=== PATIENT | male | born 1950 | race African-American/Black ===

== ENCOUNTER 2017-07-07 15:00 | Inpatient (IN) | payer OTHER ==
--- NOTE | 2017-07-07 15:48 | PDOC ---
Attending Attestation - HPI HPI: 07/07/17 17:59 Pt is a 66 yo M with a PMHx of CHF and DM who presents to the ED with back pain and weakness to his upper and lower extremities. Patient reports his back went out and is unable to bear weight since last night. Patient reports increasing weakness to lower extremities and is unable to move legs. Patient also endorses new bilateral arm weakness which prompted him to visit the ED. Patient denies any urine/bowel incontinence, saddle anesthesia, recent fall, trauma, or injury. Patient has not taken any medications for pain relief. Neurosurgery: [facility] - Medical Decision Making 07/07/17 17:59 Documentation prepared by Shireen Castro, acting as medical anthropology director for Teresa Kim MD <Shireen Castro - Last Filed: 07/07/17 17:59> - HPI HPI: I, Dr. Teresa Kim, attest that the scribes documentation that appears above has been prepared under my direction and personally reviewed by me. I confirmed that the note above accurately reflects all work, treatment, procedures, and medical decision-making performed by me. 07/07/17 20:04 - Physicial Exam PE: 07/07/17 20:04 Vital Signs Temperature 98.0 F 07/07/17 15:31 Pulse Rate 75 07/07/17 18:21 Respiratory Rate 17 07/07/17 18:21 Blood Pressure 163/79 07/07/17 18:21 O2 Sat by Pulse Oximetry (%) 99 07/07/17 18:21 Pe: HEENT: nc/at,jacquie neck: supple Lungs: + bs shannan cta Heart: S1S2 Regular Abd: Lare + bs abd soft no guarding or tenderness Neuro: Pt is alert and oriented x3, Pt with c/o weakness to both upper extremities, but no pronator drift , pt says he could not lift legs at time of this exam secondary to pain,PT says he hasnot taken any pain meds does not like to take pain meds, rectal exam performed by resident no loss of rectal tone, pt with nl finger to nose but does have weakness of upper extremities, but is inconsistent with weakness for example dec hand mac developer shannan but left > rt, and proximal upper arm strength rt > left 07/07/17 20:10 - Medical Decision Making 07/07/17 20:12 Pt with no neuropathy and as per pt was scheduled to have surgery on his cervical spine, Pt called his neurologist and reported worsening of symptoms and pt was referred to ED today for stat mri and admission. If MRI shows significant change pt may require expedited surgery in am.Resident did speak with neuro surgeon regarding this plan, MRI was ordered and pt is being admitted , pt stable at time of this note. <Teresa Kim - Last Filed: 07/07/17 20:16>
[2017-07-07 17:01] LABS: BASO % 0.8 % (0-2.0); EOS % 4.9 % (0-4.5); HEMATOCRIT 30.8 % (35.4-49); HEMOGLOBIN 10.1 GM/dL (11.7-16.9); LYMPH % 18.9 % (8-40); MCH 26.8 pg (25.7-33.7); MCHC 32.8 g/dl (32.0-35.9); MEAN CELL VOLUME 81.8 fl (80-96); MONO % 16.4 % (3.8-10.2); PLATELET COUNT 225 K/MM3 (134-434); RBC 3.76 M/mm3 (4.00-5.60); RDW 14.5 % (11.9-15.9)
--- NOTE | 2017-07-07 17:01 | PDOC ---
History of Present Illness - General Chief Complaint: Chronic pain Stated Complaint: BACK PAIN Time Seen by Provider: 07/07/17 15:40 History Source: Patient Exam Limitations: No Limitations - History of Present Illness Initial Comments: 07/07/17 16:54 Patient is 66M with history of CHF and DM here today complaining of back pain and weakness for over a month. He states that he was sent to the ED for an MRI by his neurosurgeon Dr Guidry and possible surgery tomorrow. Patient describes a long course of motor deficits that are worsening in the past few weeks. He states that he has had urinary incontinence at baseline for "years". He states that he has a large amount of weakness in both arms, but especially his hands. He also endorses sensory deficits in both his upper and lower extremities in an stocking and glove pattern. His legs are weak and he is unable to move them against gravity. Denies chest pain, shortness of breath, fevers, chills, nausea , vomiting. Past History - Past Medical History Allergies/Adverse Reactions: Allergies Allergy/AdvReac Type Severity Reaction Status Date / Time furosemide [From Lasix] Allergy Verified 07/07/17 15:34 latex Allergy Verified 07/07/17 15:34 Home Medications: Ambulatory Orders Diazepam [Valium] 10 mg PO ONCE 1 Days #1 tablet NS MDD 10 MG 06/25/17 Cardiac Disorders: Yes CVA: Yes COPD: No Diabetes: Yes HTN: Yes - Surgical History Cardiac Surgery: Yes - Suicide/Smoking/Psychosocial Hx Smoking History: Never smoked Have you smoked in the past 12 months: No Information on smoking cessation initiated: No Hx Alcohol Use: No Drug/Substance Use Hx: No Substance Use Type: None Review of Systems - Review of Systems Comments:: 07/07/17 17:04 GENERAL/CONSTITUTIONAL: No fever or chills. Positive for weakness. HEAD, EYES, EARS, NOSE AND THROAT: No change in vision. No sore throat. CARDIOVASCULAR: No chest pain or shortness of breath RESPIRATORY: No cough, wheezing, or hemoptysis. GASTROINTESTINAL: No nausea, vomiting, diarrhea or constipation. GENITOURINARY: No dysuria, frequency, or change in urination. MUSCULOSKELETAL: Positive for neck and back pain. SKIN: No rash NEUROLOGIC: No headache, vertigo, loss of consciousness, or change in strength/ sensation. ALLERGIC/IMMUNOLOGIC: No hives or skin allergy. *Physical Exam - Vital Signs Last Vital Signs Temp Pulse Resp BP Pulse Ox 98.0 F 72 16 156/72 100 07/07/17 15:31 07/07/17 15:31 07/07/17 15:31 07/07/17 15:31 07/07/17 15:31 - Physical Exam Comments: 07/07/17 17:05 GENERAL: Awake, alert, and fully oriented, in no acute distress NEURO: Sensory deficit in stocking and glove pattern. Bilateral proximal arm weakness left>right. Bilateral decreased harp action assembler strength, right>left. Unable to lift feet against gravity. No cerebellar signs. RECTAL: Normal tone, no blood, no masses, no saddle anesthesia. HEAD: No signs of trauma, normocephalic, atraumatic EYES: PERRLA, EOMI, sclera anicteric, conjunctiva clear ENT: Auricles normal inspection, hearing grossly normal, nares patent, oropharynx clear without exudates. Moist mucosa NECK: Normal ROM, supple, no lymphadenopathy, JVD, or masses, tender midline LUNGS: No distress, speaks full sentences, clear to auscultation bilaterally HEART: Regular rate and rhythm, normal S1 and S2, no murmurs, rubs or gallops, peripheral pulses normal and equal bilaterally. ABDOMEN: Soft, nontender, normoactive bowel sounds. No guarding, no rebound. No masses EXTREMITIES: Normal inspection, Normal range of motion, no edema. No clubbing or cyanosis. SKIN: Warm, Dry, normal turgor, no rashes or lesions noted. ED Treatment Course - LABORATORY CBC & Chemistry Diagram: 07/07/17 16:52 07/07/17 17:55 - ADDITIONAL ORDERS Additional order review: Laboratory Results 07/07/17 16:33 Stool Occult Blood Negative - RADIOLOGY Radiology Studies Ordered: Category Date Time Status CHEST - PA [RAD] Stat Radiology 07/07/17 16:29 Ordered Medical Decision Making - Medical Decision Making 07/07/17 17:08 Patient is 66M with history of DM and CHF here today complaining of weakness and neck pain. Vital signs stable and normal. Dr Tinoco consulted, recommends pre-op evaluation with CT cervical spine and MRI cervical spine without contrast. Will evaluate further with cbc, cmp, ekg, trop, cxr, pt/inr. 07/07/17 18:40 EKG shows normal sinus rhythm with 1st degree AV block. T wave inversions in lateral leads. LBBB pattern, Sgarbossa negative. QRS 162. QTc 487. LA 214. Concerning EKG, but no chest pain. No prior EKG, believe patient most likely has old LBBB. 07/07/17 19:[address] Herrera. *DC/Admit/Observation/Transfer Diagnosis at time of Disposition: Neck pain - Discharge Dispostion Condition at time of disposition: Stable - Referrals - Patient Instructions - Post Discharge Activity
[2017-07-07 17:17] LABS: INR 1.04 (0.82-1.09); PROTHROMBIN TIME (PATIENT) 11.7 SEC (9.98-11.88)
[2017-07-07 18:47] LABS: ALBUMIN 3.2 g/dl (3.4-5.0); ANION GAP 12 (8-16); BILIRUBIN,TOTAL 0.2 mg/dL (0.2-1.0); BLOOD UREA NITROGEN 57 mg/dL (7-18); CALCIUM 8.9 mg/dL (8.5-10.1); CHLORIDE 104 mmol/L (98-107); CO2 24 mmol/L (21-32); CREATININE 4.7 mg/dL (0.7-1.3); GLUCOSE,RANDOM 90 mg/dL (74-106); MAGNESIUM 2.4 mg/dL (1.8-2.4); POTASSIUM 4.3 mmol/L (3.5-5.1); SGOT/AST 14 U/L (15-37); SGPT/ALT 18 U/L (12-78); SODIUM 140 mmol/L (136-145); TOT PROT 7.2 g/dl (6.4-8.2)
[2017-07-07 18:49] LABS: ALK PHOS 113 U/L (45-117)
[2017-07-07] MEDS ORDERED: ACETAMINOPHEN 325 MG TABLET (FP) PO PRN (21:40)
[2017-07-07] MEDS ORDERED: HEMOQUE TEST 1 EACH EACH ONE (22:16)
--- NOTE | 2017-07-07 22:49 | PN ---
Teaching Attending Note Name of Resident: Rivka Barragan ATTENDING PHYSICIAN STATEMENT I saw and evaluated the patient. I reviewed the resident's note and discussed the case with the resident. I agree with the resident's findings and plan as documented. SUBJECTIVE: This is a 66 year old man with a history of cervical spine surgery, HTN, CHF, type 2 DM, morbid obesity who comes to the ED complaining of worsening low back pain with increasing weakness of his arms and legs. He says he has had symptoms for a long time. Last night, he became acutely worse to the point he could not stand because of the pain. He reports urinary and bowel incontinence for a long time. He has seen Dr. Tinoco and was advised to have an MRI and possible surgery. MRI was scheduled for 06/22 but it was unable to be done secondary to his body habitus. OBJECTIVE: Vital Signs Period Temp Pulse Resp BP Sys/Kauffman Pulse Ox Last 24 Hr 98.0 F 72-75 16-17 156-163/72-79 99-100 HEART: S1S2, RRR LUNGS: Clear ABDOMEN: Obese, soft, non-tender, non-distended, normal BS EXTREMITIES: 1+ edema BACK: No spine or paraspinal tenderness Laboratory Tests 07/07/17 07/07/17 07/07/17 16:33 16:52 16:52 WBC 7.0 RBC 3.76 L Hgb 10.1 L Hct 30.8 L MCV 81.8 MCH 26.8 MCHC 32.8 RDW 14.5 Plt Count 225 MPV 9.0 Neutrophils % 59.0 Lymphocytes % 18.9 Monocytes % 16.4 H Eosinophils % 4.9 H Basophils % 0.8 PT with INR 11.70 INR 1.04 Sodium Potassium Chloride Carbon Dioxide Anion Gap BUN Creatinine Creat Clearance w eGFR Random Glucose Calcium Magnesium Total Bilirubin AST ALT Alkaline Phosphatase Creatine Kinase Troponin I Total Protein Albumin Stool Occult Blood Negative 07/07/17 07/07/17 16:52 17:55 WBC RBC Hgb Hct MCV MCH MCHC RDW Plt Count MPV Neutrophils % Lymphocytes % Monocytes % Eosinophils % Basophils % PT with INR INR Sodium Cancelled 140 Potassium Cancelled 4.3 Chloride Cancelled 104 Carbon Dioxide Cancelled 24 Anion Gap Cancelled 12 BUN Cancelled 57 H Creatinine Cancelled 4.7 H Creat Clearance w eGFR Cancelled 12.46 Random Glucose Cancelled 90 Calcium Cancelled 8.9 Magnesium Cancelled 2.4 Total Bilirubin Cancelled 0.2 AST Cancelled 14 L ALT Cancelled 18 Alkaline Phosphatase Cancelled 113 Creatine Kinase Cancelled Troponin I Cancelled 0.03 Total Protein Cancelled 7.2 Albumin Cancelled 3.2 L Stool Occult Blood Home Medications Medication Instructions Recorded Diazepam [Valium] 10 mg PO ONCE 1 Days #1 tablet NS 06/25/17 MDD 10 MG ASSESSMENT AND PLAN: This is a 66 year old man with a history of cervical spine surgery, HTN, CHF, type 2 DM, morbid obesity who presented to the ED with worsening low back pain, increasing weakness of his arms and legs. He was found to have Hgb 10.1, BUN 57 , creatinine 4.7 1. Bilateral arm and leg weakness and numbness with low back pain and inability to walk. - Likely combination of cervical stenosis, diabetic neuropathy - MRI of C-spine not able to be done because of his size - CT of C-spine ordered - Cardiology, pulmonary consults for pre-op evaluation 2. Anemia, normocytic - Likely secondary to chronic illness - Monitor creatinine 3. Acute kidney injury vs stage 5 CKD - Renal US - Nephrology consult 4. HTN 5. CHF - Stable 6. Type 2 DM - Start Levemir - Fingersticks with Novolog sliding scale - Check HgbA1c 7. Morbid obesity with BMI 51.7 8. DOMINIK - Uses CPAP at night 9. History of TAVR
[2017-07-08] MEDS: INSULIN SLIDING SCALE (NOVOLOG) 1 VIAL SQ SCH ×5 (00:02→22:15)
--- NOTE | 2017-07-08 00:34 | HP ---
CHIEF COMPLAINT: PCP: HISTORY OF PRESENT ILLNESS: ER course was notable for: (1) (2) (3) Recent Travel: PAST MEDICAL HISTORY: PAST SURGICAL HISTORY: Social History: Smoking: Alcohol: Drugs: Family History: Allergies furosemide [From Lasix] Allergy (Verified 07/07/17 15:34) latex Allergy (Verified 07/07/17 15:34) HOME MEDICATIONS: Home Medications Medication Instructions Recorded Amlodipine Besylate 10 mg PO DAILY 07/08/17 Aspirin [Aspirin EC] 81 mg PO DAILY 07/08/17 Cholecalciferol (Vitamin D3) 2,000 unit PO DAILY 07/08/17 [Vitamin D] Clopidogrel Bisulfate [Clopidogrel] 75 mg PO DAILY 07/08/17 Docusate Sodium 100 mg PO DAILY 07/08/17 Gabapentin 100 mg PO DAILY 07/08/17 Hydralazine HCl 25 mg PO DAILY 07/08/17 Hydrochlorothiazide 25 mg PO DAILY 07/08/17 Metoprolol Tartrate 25 mg PO DAILY 07/08/17 Ranitidine [Zantac -] 150 mg PO DAILY 07/08/17 Sennosides [Senna] 8.6 mg PO DAILY 07/08/17 Simvastatin 20 mg PO DAILY 07/08/17 REVIEW OF SYSTEMS CONSTITUTIONAL: Absent: fever, chills, diaphoresis, generalized weakness, malaise, loss of appetite, weight change HEENT: Absent: rhinorrhea, nasal congestion, throat pain, throat swelling, difficulty swallowing, mouth swelling, ear pain, eye pain, visual changes CARDIOVASCULAR: Absent: chest pain, syncope, palpitations, irregular heart rate, lightheadedness , peripheral edema RESPIRATORY: Absent: cough, shortness of breath, dyspnea with exertion, orthopnea, wheezing, stridor, hemoptysis GASTROINTESTINAL: Absent: abdominal pain, abdominal distension, nausea, vomiting, diarrhea, constipation, melena, hematochezia GENITOURINARY: Absent: dysuria, frequency, urgency, hesitancy, hematuria, flank pain, genital pain MUSCULOSKELETAL: Absent: myalgia, arthralgia, joint swelling, back pain, neck pain SKIN: Absent: rash, itching, pallor HEMATOLOGIC/IMMUNOLOGIC: Absent: easy bleeding, easy bruising, lymphadenopathy, frequent infections ENDOCRINE: Absent: unexplained weight gain, unexplained weight loss, heat intolerance, cold intolerance NEUROLOGIC: Absent: headache, focal weakness or paresthesias, dizziness, unsteady gait, seizure, mental status changes, bladder or bowel incontinence PSYCHIATRIC: Absent: anxiety, depression, suicidal or homicidal ideation, hallucinations. PHYSICAL EXAMINATION Vital Signs - 24 hr 07/07/17 07/07/17 15:31 18:21 Temperature 98.0 F Pulse Rate 72 Pulse Rate [ 75 Right] Respiratory 16 17 Rate Blood Pressure 156/72 Blood Pressure 163/79 [Left] O2 Sat by Pulse 100 99 Oximetry (%) GENERAL: Awake, alert, and fully oriented, in no acute distress. HEAD: Normal with no signs of trauma. EYES: Pupils equal, round and reactive to light, extraocular movements intact, sclera anicteric, conjunctiva clear. No lid lag. EARS, NOSE, THROAT: Ears normal, nares patent, oropharynx clear without exudates. Moist mucous membranes. NECK: Normal range of motion, supple without lymphadenopathy, JVD, or masses. LUNGS: Breath sounds equal, clear to auscultation bilaterally. No wheezes, and no crackles. No accessory muscle use. HEART: Regular rate and rhythm, normal S1 and S2 without murmur, rub or gallop. ABDOMEN: Soft, nontender, not distended, normoactive bowel sounds, no guarding, no rebound, no masses. No hepatomegaly or splenomegaly. MUSCULOSKELETAL: Normal range of motion at all joints. No bony deformities or tenderness. No CVA tenderness. UPPER EXTREMITIES: 2+ pulses, warm, well-perfused. No cyanosis. No clubbing. No peripheral edema. LOWER EXTREMITIES: 2+ pulses, warm, well-perfused. No calf tenderness. No peripheral edema. NEUROLOGICAL: Cranial nerves II-XII intact. Normal speech. Normal gait. PSYCHIATRIC: Cooperative. Good eye contact. Appropriate mood and affect. SKIN: Warm, dry, normal turgor, no rashes or lesions noted, normal capillary refill. Laboratory Results - last 24 hr 07/07/17 07/07/17 07/07/17 16:33 16:52 16:52 WBC 7.0 RBC 3.76 L Hgb 10.1 L Hct 30.8 L MCV 81.8 MCH 26.8 MCHC 32.8 RDW 14.5 Plt Count 225 MPV 9.0 Neutrophils % 59.0 Lymphocytes % 18.9 Monocytes % 16.4 H Eosinophils % 4.9 H Basophils % 0.8 PT with INR 11.70 INR 1.04 Sodium Potassium Chloride Carbon Dioxide Anion Gap BUN Creatinine Creat Clearance w eGFR Random Glucose Calcium Magnesium Total Bilirubin AST ALT Alkaline Phosphatase Creatine Kinase Troponin I Total Protein Albumin Stool Occult Blood Negative 07/07/17 07/07/17 16:52 17:55 WBC RBC Hgb Hct MCV MCH MCHC RDW Plt Count MPV Neutrophils % Lymphocytes % Monocytes % Eosinophils % Basophils % PT with INR INR Sodium Cancelled 140 Potassium Cancelled 4.3 Chloride Cancelled 104 Carbon Dioxide Cancelled 24 Anion Gap Cancelled 12 BUN Cancelled 57 H Creatinine Cancelled 4.7 H Creat Clearance w eGFR Cancelled 12.46 Random Glucose Cancelled 90 Calcium Cancelled 8.9 Magnesium Cancelled 2.4 Total Bilirubin Cancelled 0.2 AST Cancelled 14 L ALT Cancelled 18 Alkaline Phosphatase Cancelled 113 Creatine Kinase Cancelled Troponin I Cancelled 0.03 Total Protein Cancelled 7.2 Albumin Cancelled 3.2 L Stool Occult Blood ASSESSMENT/PLAN: Hospitalist Screening - Colonoscopy Questionnaire Colonoscopy Questionnaire: Colonoscopy Questionnaire
--- NOTE | 2017-07-08 00:35 | HP ---
CHIEF COMPLAINT: inability ambulate; PCP: HISTORY OF PRESENT ILLNESS: This is a 66 year old male, poor historian, medical history if CHF, HTN, DM, TAVR, cervical stenosis, who presents to the emergency room with inability to ambulate due to worsening chronic back pain. Patient sates he was snet over by neurologist for ore op clearance for spinal surgery. He endorsed increased pain , numbness and tingling of bilateral lower extremities, feet, and hands. He was ajay to walk to the bathroom a few days ago, now cannot. He also admits to bladder and bowel incontinence, which has been going on for a while. Patient was scheduled for an MRI recently here but was unable to fit into the MRI machine. ER course was notable for: Elevated Creatinine; baseline unknown; Recent Travel: no PAST MEDICAL HISTORY: CHF, HTN, DM, TAVR PAST SURGICAL HISTORY: TAVR, Social History: Smoking:no Alcohol:nnoo Drugs: Family History: Allergies furosemide [From Lasix] Allergy (Verified 07/07/17 15:34) latex Allergy (Verified 07/07/17 15:34) HOME MEDICATIONS: Home Medications Medication Instructions Recorded Amlodipine Besylate 10 mg PO DAILY 07/08/17 Aspirin [Aspirin EC] 81 mg PO DAILY 07/08/17 Cholecalciferol (Vitamin D3) 2,000 unit PO DAILY 07/08/17 [Vitamin D] Clopidogrel Bisulfate [Clopidogrel] 75 mg PO DAILY 07/08/17 Docusate Sodium 100 mg PO DAILY 07/08/17 Gabapentin 100 mg PO DAILY 07/08/17 Hydralazine HCl 25 mg PO DAILY 07/08/17 Hydrochlorothiazide 25 mg PO DAILY 07/08/17 Metoprolol Tartrate 25 mg PO DAILY 07/08/17 Ranitidine [Zantac -] 150 mg PO DAILY 07/08/17 Sennosides [Senna] 8.6 mg PO DAILY 07/08/17 Simvastatin 20 mg PO DAILY 07/08/17 REVIEW OF SYSTEMS as above PHYSICAL EXAMINATION Vital Signs - 24 hr 07/07/17 07/07/17 15:31 18:21 Temperature 98.0 F Pulse Rate 72 Pulse Rate [ 75 Right] Respiratory 16 17 Rate Blood Pressure 156/72 Blood Pressure 163/79 [Left] O2 Sat by Pulse 100 99 Oximetry (%) GENERAL: obese ; Awake, alert, and fully oriented, unable to to move in bed with out help HEAD: Normal with no signs of trauma. EYES: Pupils equal, round and reactive to light, extraocular movements intact, sclera anicteric, conjunctiva clear. No lid lag. EARS, NOSE, THROAT: Ears normal, nares patent, oropharynx clear without exudates. Moist mucous membranes. NECK: Normal range of motion, supple without lymphadenopathy, JVD, or masses. LUNGS: decreased Breath sounds equal, clear to auscultation bilaterally. HEART: Regular rate and rhythm, normal S1 and S2 without murmur, rub or gallop. ABDOMEN: obese, Soft, nontender, not distended, normoactive bowel sounds,. MUSCULOSKELETAL: + bony tenderness lumbar to deep palpation ; No CVA tenderness. UPPER EXTREMITIES: 2+ pulses, warm, well-perfused. No cyanosis. No clubbing. No peripheral edema. LOWER EXTREMITIES: 2+ pulses, warm, well-perfused. No calf tenderness. 3+ bl peripheral edema. NEUROLOGICAL: Cranial nerves II-XII intact. Normal speech. motor: rigth shoulder 4/5/; left 5/5; hand assisted living care manager 3/5 b/l; B/l tricep/bicelp 3/5; unable to lift LE off bed; able to wigle toes; dorsi/plantar flexion; 2/5 PSYCHIATRIC: depressed mood SKIN: abdominal skin area LLQ; black raised; looks to be acanthosis nigrans Laboratory Results - last 24 hr 07/07/17 07/07/17 07/07/17 16:33 16:52 16:52 WBC 7.0 RBC 3.76 L Hgb 10.1 L Hct 30.8 L MCV 81.8 MCH 26.8 MCHC 32.8 RDW 14.5 Plt Count 225 MPV 9.0 Neutrophils % 59.0 Lymphocytes % 18.9 Monocytes % 16.4 H Eosinophils % 4.9 H Basophils % 0.8 PT with INR 11.70 INR 1.04 Sodium Potassium Chloride Carbon Dioxide Anion Gap BUN Creatinine Creat Clearance w eGFR Random Glucose Calcium Magnesium Total Bilirubin AST ALT Alkaline Phosphatase Creatine Kinase Troponin I Total Protein Albumin Stool Occult Blood Negative 07/07/17 07/07/17 16:52 17:55 WBC RBC Hgb Hct MCV MCH MCHC RDW Plt Count MPV Neutrophils % Lymphocytes % Monocytes % Eosinophils % Basophils % PT with INR INR Sodium Cancelled 140 Potassium Cancelled 4.3 Chloride Cancelled 104 Carbon Dioxide Cancelled 24 Anion Gap Cancelled 12 BUN Cancelled 57 H Creatinine Cancelled 4.7 H Creat Clearance w eGFR Cancelled 12.46 Random Glucose Cancelled 90 Calcium Cancelled 8.9 Magnesium Cancelled 2.4 Total Bilirubin Cancelled 0.2 AST Cancelled 14 L ALT Cancelled 18 Alkaline Phosphatase Cancelled 113 Creatine Kinase Cancelled Troponin I Cancelled 0.03 Total Protein Cancelled 7.2 Albumin Cancelled 3.2 L Stool Occult Blood ASSESSMENT/PLAN: This is a 66 year old male with a medical history of TAVR, DM, HTN, CHF, cervical stenosis, present with increasing bilateral leg weakness, pain , inability to ambulate. Need to get in touch with Dr. Tinoco neurosurgeon on case; pre op clearance for surgery. Not exactly sure what type of surgery being done. #bilateral leg weakness; numbness tingling; hand weakness; plan for surgery ? -need preop clearance -ecg -cxr -cardio consult -pulm consult as patient as DOMINIK on CPAP #acute kidney injury vs CKD; possible complication of diabetes -need baseline -urine lytes -renal bladder US -renal consult #chf: -cxd: cardiomegaly -on lasix at home; con for now as b/l leg are 3+ pitting edema; #htn: controlled #on asa and plavix; will hold while pt is to have s #anemia: may be chronic; may be due to kidney disease -check iron studies -b 12; folate -FOBT VTE: currently scd GI: proph; ppi need med reconciliation patient pharm cvd prospect: Case discussed with Dr Vanessa Ulrich Visit type - Emergency Visit Emergency Visit: Yes ED Registration Date: 07/07/17 Care time: The patient presented to the Emergency Department on the above date and was hospitalized for further evaluation of their emergent condition. - New Patient This patient is new to me today: Yes Date on this admission: 07/08/17 - Critical Care Critical Care patient: No Hospitalist Screening - Colonoscopy Questionnaire Colonoscopy Questionnaire: Colonoscopy Questionnaire - Patient: 50 - 75 years old and never had a screening colonoscopy: Yes History of colon or rectal polyps, or CA: Unknown History of IBD, Crohn's disease or UC: Unknown History of abdominal radiation therapy as a child: Unknown - Relative: 1 with colon or rectal CA, or polyps at age 60 or younger: Unknown Colon or rectal CA diagnosed at age 45 or younger: Unknown Multiple relatives with colon or rectal CA: Unknown - Outcome: Screening Result: Positive Screen
[2017-07-08 02:58] LABS: URINE APPEARANCE CLEAR; URINE BILIRUBIN NEGATIVE (<2.0 mg/dL); URINE BLOOD 1+ (NEGATIVE); URINE COLOR STRAW; URINE GLUCOSE (UA) 1+ (NEGATIVE); URINE KETONE NEGATIVE (NEGATIVE); URINE LEUK ESTERASE NEGATIVE (NEGATIVE); URINE NITRITE NEGATIVE (NEGATIVE); URINE UROBILINOGEN NEGATIVE mg/dL (0.2-1.0)
[2017-07-08 03:05] LABS: URINE PROTEIN 3+ (NEGATIVE)
[2017-07-08 03:09] LABS: URINE BACTERIA RARE /hpf (NONE SEEN); URINE HYALINE CAST 2 /lpf; URINE MUCUS RARE
[2017-07-08 04:22] VITALS: BMI 40.3
[2017-07-08 08:28] LABS: EOS % 5.3 % (0-4.5); HEMOGLOBIN 9.8 GM/dL (11.7-16.9); LYMPH % 17.3 % (8-40); MCH 26.7 pg (25.7-33.7); MCHC 32.7 g/dl (32.0-35.9); MEAN CELL VOLUME 81.7 fl (80-96); MEAN PLT VOLUME 8.8 fl (7.5-11.1); MONO % 14.2 % (3.8-10.2); NEUT % 62.2 % (42.8-82.8); PLATELET COUNT 224 K/MM3 (134-434); RBC 3.67 M/mm3 (4.00-5.60); RDW 14.5 % (11.9-15.9)
[2017-07-08] MEDS ORDERED: hydrALAZINE HCL 25 MG TABLET (FP) PO SCH (10:00)
[2017-07-08] MEDS ORDERED: METOPROLOL TARTRATE 25 MG TABLET (FP) PO SCH (10:00)
[2017-07-08] MEDS ORDERED: GABAPENTIN 100 MG CAPSULE (FP) PO SCH (10:00)
--- NOTE | 2017-07-08 10:10 | CON.PULM ---
Consult Consult Specialty:: PULMONARY Referred by:: CHRIS Reason for Consultation:: PRE-OP PULMONARY CLEARANCE - History of Present Illness Chief Complaint: UNABLE TO MOVE B/L LOWER EXT History of Present Illness: Pt is a 66 yo M with a PMHx of CHF, S/P TAVR unclear as to date, was on asa/ plavix, DM and previous cervical spine surgery presents to the ED with back pain and weakness to his upper and lower extremities. Patient reports his back went out and is unable to bear weight since last night. Patient reports increasing weakness to lower extremities and is unable to move legs. Patient also endorses new bilateral arm weakness which prompted him to visit the ED. Patient denies any urine/bowel incontinence, recent fall, trauma, or injury. Patient has not taken any medications for pain relief. He has a past h/o OSAS and is extremely compliant with NIPPV (nasal cpap @12 cm/h20) He also states that he has o2 tanks at home which he uses from time to time. 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 His level of activity up to admission was wheelchair/able to transfer and walk "a few steps". 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 No: AFIB Pulmonary: Yes: COPD, Sleep Apnea Gastrointestinal: No: Ascites Hepatobiliary: No: Cirrhosis Renal/: No: Renal Failure Heme/Onc: Yes: Anemia Psych: No: Addictions Musculoskeletal: Yes: Chronic low back pain, Paraplegia Rheumatology: No: Fibromyalgia ENT: No: Allergic Rhinitis Endocrine: Yes: Diabetes Mellitus - Past Surgical History Additional Surgical History: previous cervical surgery/TAVR - Alcohol/Substance Use Hx Alcohol Use: No - Smoking History Smoking history: Former smoker Have you smoked in the past 12 months: No - Social History Place of : [facility] History of Recent Travel: No Home Medications - Allergies Allergies/Adverse Reactions: Allergies Allergy/AdvReac Type Severity Reaction Status Date / Time furosemide [From Lasix] Allergy Verified 07/07/17 15:34 latex Allergy Verified 07/07/17 15:34 - Home Medications Home Medications: Ambulatory Orders Amlodipine Besylate 10 mg PO DAILY 07/08/17 Aspirin [Aspirin EC] 81 mg PO DAILY 07/08/17 Cholecalciferol (Vitamin D3) [Vitamin D] 2,000 unit PO DAILY 07/08/17 Clopidogrel Bisulfate [Clopidogrel] 75 mg PO DAILY 07/08/17 Docusate Sodium 100 mg PO DAILY 07/08/17 Gabapentin 100 mg PO DAILY 07/08/17 Hydralazine HCl 25 mg PO DAILY 07/08/17 Hydrochlorothiazide 25 mg PO DAILY 07/08/17 Metoprolol Tartrate 25 mg PO DAILY 07/08/17 Ranitidine [Zantac -] 150 mg PO DAILY 07/08/17 Sennosides [Senna] 8.6 mg PO DAILY 07/08/17 Simvastatin 20 mg PO DAILY 07/08/17 Family Disease History - Family Disease History Family History: Unremarkable Review of Systems - Review of Systems Constitutional: denies: Fever, Loss of Appetite Eyes: denies: Blurred Vision HENT: denies: Difficult Swallowing Neck: denies: Decreased ROM Cardiovascular: denies: Chest Pain Respiratory: reports: SOB on Exertion. denies: Cough, Hemoptysis, Wheezing Gastrointestinal: denies: Abdominal Pain Genitourinary: denies: Burning Breasts: reports: No Symptoms Reported Musculoskeletal: reports: Back Pain, Muscle Weakness Integumentary: reports: No Symptoms Neurological: reports: Pre-Existing Deficit, Unsteady Gait, Weakness Endocrine: reports: No Symptoms Hematology/Lymphatic: reports: No Symptoms Physical Exam Vital Sings: Vital Signs Temperature 97.7 F 07/08/17 06:00 Pulse Rate 58 L 07/08/17 06:00 Respiratory Rate 22 07/08/17 06:00 Blood Pressure 181/77 07/08/17 06:00 O2 Sat by Pulse Oximetry (%) 99 07/08/17 03:24 Constitutional: Yes: Calm Eyes: Yes: EOM Intact HENT: Yes: Normocephalic Neck: Yes: Trachea Midline Cardiovascular: Yes: Regular Rate and Rhythm, S1, S2 Respiratory: Yes: CTA Bilaterally Gastrointestinal: Yes: Normal Bowel Sounds, Soft, Abdomen, Obese Musculoskeletal: Yes: Muscle Weakness Edema: LLE: 1+, RLE: 1+ Integumentary: Yes: WNL Neurological: Yes: Alert, Pre-Existing Deficit, Weakness Labs: CBC, BMP 07/08/17 06:30 REST REVIEWED Imaging - Results Chest X-ray: Report Reviewed, Image Reviewed EKG: Report Reviewed Problem List - Problems (1) CHF (congestive heart failure) Code(s): I50.9 - HEART FAILURE, UNSPECIFIED (2) DOMINIK (obstructive sleep apnea) Code(s): G47.33 - OBSTRUCTIVE SLEEP APNEA (ADULT) (PEDIATRIC) (3) Diabetes Code(s): E11.9 - TYPE 2 DIABETES MELLITUS WITHOUT COMPLICATIONS (4) Back pain Code(s): M54.9 - DORSALGIA, UNSPECIFIED (5) HTN (hypertension) Code(s): I10 - ESSENTIAL (PRIMARY) HYPERTENSION (6) S/P TAVR (transcatheter aortic valve replacement) Code(s): Z95.2 - PRESENCE OF PROSTHETIC HEART VALVE Assessment/Plan ETIOLOGY OF PROGRESSION OF LOWER EXTREMITY WEAKNESS TO BE DETERMINED PATIENT UNABLE TO TOLERATE MRI PLANNED OSAS STABLE/LIKELY DEGREE OF COPD(PROBABLY NOT O2 DEPENDANT SPO2 ON R/A IS 99 %) WILL BE CLEARED FROM A PULMONARY STANDPOINT ONCE WE CAN DETERMINE WHICH PROCEDURE IS PLANNED SUGGEST NIPPV IMMEDIATE POST-EXTUBATION AND IN RECOVERY ROOM/12 CM/H20 PRESSURE WILL LIKELY BE ADEQUATE WILL FOLLOW Cara MIRANDA MD
[2017-07-08] MEDS: HYDROCHLOROTHIAZIDE 25 MG TABLET (FP) PO SCH (10:22)
[2017-07-08] MEDS: SENNOSIDES 8.6MG TABLET (FP) PO SCH (10:22)
[2017-07-08] MEDS: DOCUSATE SODIUM 100 MG CAPSULE (FP) PO SCH (10:22)
[2017-07-08] MEDS: amLODIPine BESYLATE 10 MG TABLET (FP) PO SCH (10:22)
[2017-07-08] MEDS: RANITIDINE HCL 150 MG TABLET (FP) PO SCH (10:22)
[2017-07-08 11:01] LABS: CHLORIDE 105 mmol/L (98-107); POTASSIUM 4.7 mmol/L (3.5-5.1); SODIUM 138 mmol/L (136-145)
[2017-07-08 11:10] LABS: ANION GAP 12 (8-16); BLOOD UREA NITROGEN 56 mg/dL (7-18); CALCIUM 9.1 mg/dL (8.5-10.1); CO2 21 mmol/L (21-32); CREATININE 4.4 mg/dL (0.7-1.3); GLUCOSE,RANDOM 94 mg/dL (74-106); MAGNESIUM 2.1 mg/dL (1.8-2.4); PHOSPHOROUS 5.7 mg/dL (2.5-4.9)
--- NOTE | 2017-07-08 16:01 | CON.NEP ---
Consult Consult Specialty:: Nephrology Referred by:: Dr Ayon Reason for Consultation:: CKD - History of Present Illness Chief Complaint: LE weakness History of Present Illness: This is a 66 year old man with a history of DM (2) complicated by CKD and Diabetic retinopathy for which he has required laser therapy, HTN, CHF, HLD, , Obesity with DOMINIK, S/P TAVR, S/P Cervical Spine Surgery. Pt presented to the ED complaining of worsening low back pain with increasing weakness of his arms and legs. Pt apparently reported urinary and bowel incontinence which . Pt followed by neurosurgery and was to have an MRI and possible surgery. MRI was scheduled for 06/22 but it was unable to be done secondary to his body habitus. Pt knows he has CKD from DM and is usually followed by Dr Nasreen Mederos at [facility] and he was told he had "20%" kidney function Pt does have some dysuria with incontinence as noted above. 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 No: AFIB Pulmonary: Yes: COPD, Sleep Apnea Gastrointestinal: No: Ascites Hepatobiliary: No: Cirrhosis Renal/: Yes: Renal Inusuff Psych: No: Addictions Musculoskeletal: Yes: Chronic low back pain, Paraplegia Rheumatology: No: Fibromyalgia ENT: No: Allergic Rhinitis Endocrine: Yes: Diabetes Mellitus - Past Surgical History Additional Surgical History: previous cervical surgery/TAVR - Alcohol/Substance Use Hx Alcohol Use: No - Smoking History Smoking history: Former smoker Have you smoked in the past 12 months: No - Social History History of Recent Travel: No Home Medications - Allergies Allergies/Adverse Reactions: Allergies Allergy/AdvReac Type Severity Reaction Status Date / Time furosemide [From Lasix] Allergy Verified 07/07/17 15:34 latex Allergy Verified 07/07/17 15:34 - Home Medications Home Medications: Ambulatory Orders Amlodipine Besylate 10 mg PO DAILY 07/08/17 Aspirin [Aspirin EC] 81 mg PO DAILY 07/08/17 Cholecalciferol (Vitamin D3) [Vitamin D] 2,000 unit PO DAILY 07/08/17 Clopidogrel Bisulfate [Clopidogrel] 75 mg PO DAILY 07/08/17 Docusate Sodium 100 mg PO DAILY 07/08/17 Gabapentin 600 mg PO TID 07/08/17 Hydralazine HCl 25 mg PO DAILY 07/08/17 Hydrochlorothiazide 25 mg PO DAILY 07/08/17 Metoprolol Tartrate 25 mg PO DAILY 07/08/17 Ranitidine [Zantac -] 150 mg PO DAILY 07/08/17 Sennosides [Senna] 8.6 mg PO DAILY 07/08/17 Simvastatin 20 mg PO DAILY 07/08/17 Nephrology Consult - Height Height: 5 ft 9 in - Weight Weight: 273 lb - BMI Body Mass Index (BMI): 40.3 - Lab Results CBC,BMP: CBC, BMP 07/08/17 06:30 07/08/17 06:30 Laboratory Tests 07/07/17 07/07/17 07/08/17 16:33 17:55 00:20 BUN 57 H Creatinine 4.7 H Calcium 8.9 Magnesium 2.4 Total Bilirubin 0.2 AST 14 L ALT 18 Alkaline Phosphatase 113 Troponin I 0.03 Total Protein 7.2 Albumin 3.2 L Urine Color Straw Urine Appearance Clear Urine pH 6.0 Ur Specific [place] 1.011 Urine Protein 3+ H Urine Glucose (UA) 1+ H Urine Ketones Negative Urine Blood 1+ H Urine Nitrite Negative Urine Bilirubin Negative Urine Urobilinogen Negative Ur Leukocyte Esterase Negative Urine WBC (Auto) 1 Urine RBC (Auto) <1 Urine Bacteria Rare Stool Occult Blood Negative Anion Gap: Anion Gap Anion Gap 12 (8-16) 07/08/17 06:30 - Imaging Chest X-ray: Report Reviewed X-ray: Other (S/P Fusion of C spine changes noted) Ultrasound: Report Reviewed, Other (Urine in bladder ~ 330 cc) - Physical Examination Vital Signs: Vital Signs Temperature 98.2 F 07/08/17 14:04 Pulse Rate 63 07/08/17 14:04 Respiratory Rate 20 07/08/17 14:04 Blood Pressure 150/78 07/08/17 14:04 O2 Sat by Pulse Oximetry (%) 99 07/08/17 09:00 Constitutional: Yes: No Distress Cardiovascular: Yes: S1, S2 Respiratory: Yes: CTA Bilaterally Gastrointestinal: Yes: Soft, Abdomen, Obese, Other (Ombelical hernia. Difficult to appreciate u bladder distention given his obesity). No: Tenderness, Rebound Edema: No Neurological: Yes: Other (Alert and cooperative Wasting of hand muscles) Assessment/Plan Impression CKD vs acute on CKD in pt with diabetic nephropathy with some urinary retention LE weakness in pt with cervical spine disease DM HTN on once a day Hydralazine and Metoprolol tartrate CHF compensated S/P TAVR HLD Obesity DOMINIK Anemia Plan Bedside renal scan post void and consider inserting a zimmerman if above 200 cc Urine for Pro/Cr ratio Continue with HCTZ for now To contact Dr Nasreen Mederos for pt's baseline renal function test Hydralazine increased to TID and if BB to be succinate form Neurosurgery and cardiac evaluation Rpt labs in am Thank You Will follow Dr Pastor
--- NOTE | 2017-07-08 16:42 | CON.CARD ---
Consult Consult Specialty:: Cardiology Reason for Consultation:: PreOp - History of Present Illness History of Present Illness: This is a 66 year old male with a PMH of HTN, DM, HLD, obesityt and CRI. He is S /P an RCA stent 05/30/10. He had aortic stenosis and received a transapical TAVR on 07/04/[address] [facility]. He is wheelchair bound. Last Cardiac Cath 06/17/13 patent RCA stent, 6-%prox left circ. He presents now with back pain and weakness to his extremities. He denies cardiac symptoms at this time. 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 No: AFIB Pulmonary: Yes: COPD, Sleep Apnea Gastrointestinal: No: Ascites Hepatobiliary: No: Cirrhosis Renal/: Yes: Renal Inusuff Psych: No: Addictions Musculoskeletal: Yes: Chronic low back pain, Paraplegia Rheumatology: No: Fibromyalgia ENT: No: Allergic Rhinitis Endocrine: Yes: Diabetes Mellitus - Past Surgical History Additional Surgical History: previous cervical surgery/TAVR - Alcohol/Substance Use Hx Alcohol Use: No - Smoking History Smoking history: Former smoker Have you smoked in the past 12 months: No - Social History History of Recent Travel: No Home Medications - Allergies Allergies/Adverse Reactions: Allergies Allergy/AdvReac Type Severity Reaction Status Date / Time furosemide [From Lasix] Allergy Verified 07/07/17 15:34 latex Allergy Verified 07/07/17 15:34 - Home Medications Home Medications: Ambulatory Orders Amlodipine Besylate 10 mg PO DAILY 07/08/17 Aspirin [Aspirin EC] 81 mg PO DAILY 07/08/17 Cholecalciferol (Vitamin D3) [Vitamin D] 2,000 unit PO DAILY 07/08/17 Clopidogrel Bisulfate [Clopidogrel] 75 mg PO DAILY 07/08/17 Docusate Sodium 100 mg PO DAILY 07/08/17 Gabapentin 600 mg PO TID 07/08/17 Hydralazine HCl 25 mg PO DAILY 07/08/17 Hydrochlorothiazide 25 mg PO DAILY 07/08/17 Metoprolol Tartrate 25 mg PO DAILY 07/08/17 Ranitidine [Zantac -] 150 mg PO DAILY 07/08/17 Sennosides [Senna] 8.6 mg PO DAILY 07/08/17 Simvastatin 20 mg PO DAILY 07/08/17 Review of Systems Findings/Remarks: As per HPI Vital Signs: Vital Signs Temperature 98.2 F 07/08/17 14:04 Pulse Rate 63 07/08/17 14:04 Respiratory Rate 20 07/08/17 14:04 Blood Pressure 150/78 07/08/17 14:04 O2 Sat by Pulse Oximetry (%) 99 07/08/17 09:00 Constitutional: Yes: Well Nourished, Obese Eyes: Yes: WNL HENT: Yes: WNL Neck: Yes: WNL Respiratory: Yes: CTA Bilaterally Gastrointestinal: Yes: Soft Cardiovascular: Yes: Regular Rate and Rhythm (NL S1S2 no MRHG) JVD: No Carotid Bruit: No Extremities: Yes: WNL Edema: LLE: Trace, RLE: Trace Neurological: Yes: Alert, Oriented (Grossly non focal) - Other Data Labs, Other Data: CBC, BMP 07/08/17 06:30 07/08/17 06:30 INR, PTT INR 1.04 (0.82-1.09) 07/07/17 16:52 Troponin, BNP 07/07/17 07/07/17 16:52 17:55 Troponin I Cancelled 0.03 Troponin, BNP 07/07/17 07/07/17 16:52 17:55 Troponin I Cancelled 0.03 Assessment/Plan Preoperative Evaluation: Given his history, please obtain an echocardiogram prior to his undergoing surgery Also, I did not find an EKG for him in [facility], please order one if he has not had one Presently on Aspirin and Clopidogrel which may have to be held for the surgery Continue metoprolol tartrate 25 mg PO BID Continue amlodipine 10mg and HCTZ 25 mg daily for BP control Will follow with you.
--- NOTE | 2017-07-08 17:37 | PN ---
Progress Note (short form) - Note Progress Note: Subjective: no ever or chills , has no abd pain , has constipation . denies any SOb or CP . reprots weakness in upper and lower extremities which has worsened . R hand fingers are contracted x 2-3 weeks Objective: Vital Signs: Last Vital Signs Temp Pulse Resp BP Pulse Ox 98.8 F 65 20 160/92 99 07/08/17 17:23 07/08/17 17:23 07/08/17 17:23 07/08/17 17:23 07/08/17 09:00 Laboratory Results - last 24 hr 07/07/17 07/08/17 07/08/17 17:55 00:06 00:06 WBC RBC Hgb Hct MCV MCH MCHC RDW Plt Count MPV Neutrophils % Lymphocytes % Monocytes % Eosinophils % Basophils % Sodium 140 Potassium 4.3 Chloride 104 Carbon Dioxide 24 Anion Gap 12 BUN 57 H Creatinine 4.7 H Creat Clearance w eGFR 12.46 POC Glucometer Random Glucose 90 Hemoglobin A1c % Calcium 8.9 Phosphorus Magnesium 2.4 Total Bilirubin 0.2 AST 14 L ALT 18 Alkaline Phosphatase 113 Troponin I 0.03 Total Protein 7.2 Albumin 3.2 L Vitamin B12 Serum Folate Urine Color Urine Appearance Urine pH Ur Specific [place] Urine Protein Urine Glucose (UA) Urine Ketones Urine Blood Urine Nitrite Urine Bilirubin Urine Urobilinogen Ur Leukocyte Esterase Urine WBC (Auto) Urine RBC (Auto) Urine Bacteria Hyaline Casts Urine Mucus Ur Random Sodium 95 Urine Creatinine 63.6 07/08/17 07/08/17 07/08/17 00:20 06:23 06:30 WBC 7.0 RBC 3.67 L Hgb 9.8 L Hct 30.0 L MCV 81.7 MCH 26.7 MCHC 32.7 RDW 14.5 Plt Count 224 MPV 8.8 Neutrophils % 62.2 Lymphocytes % 17.3 Monocytes % 14.2 H Eosinophils % 5.3 H Basophils % 1.0 Sodium Potassium Chloride Carbon Dioxide Anion Gap BUN Creatinine Creat Clearance w eGFR POC Glucometer 94 Random Glucose Hemoglobin A1c % Calcium Phosphorus Magnesium Total Bilirubin AST ALT Alkaline Phosphatase Troponin I Total Protein Albumin Vitamin B12 Serum Folate Urine Color Straw Urine Appearance Clear Urine pH 6.0 Ur Specific [place] 1.011 Urine Protein 3+ H Urine Glucose (UA) 1+ H Urine Ketones Negative Urine Blood 1+ H Urine Nitrite Negative Urine Bilirubin Negative Urine Urobilinogen Negative Ur Leukocyte Esterase Negative Urine WBC (Auto) 1 Urine RBC (Auto) <1 Urine Bacteria Rare Hyaline Casts 2 Urine Mucus Rare Ur Random Sodium Urine Creatinine 07/08/17 07/08/17 07/08/17 06:30 06:30 06:30 WBC RBC Hgb Hct MCV MCH MCHC RDW Plt Count MPV Neutrophils % Lymphocytes % Monocytes % Eosinophils % Basophils % Sodium 138 Potassium 4.7 Chloride 105 Carbon Dioxide 21 Anion Gap 12 BUN 56 H Creatinine 4.4 H Creat Clearance w eGFR POC Glucometer Random Glucose 94 Hemoglobin A1c % 6.8 H Calcium 9.1 Phosphorus 5.7 H Magnesium 2.1 Total Bilirubin AST ALT Alkaline Phosphatase Troponin I Total Protein Albumin Vitamin B12 646 Serum Folate 4 Urine Color Urine Appearance Urine pH Ur Specific [place] Urine Protein Urine Glucose (UA) Urine Ketones Urine Blood Urine Nitrite Urine Bilirubin Urine Urobilinogen Ur Leukocyte Esterase Urine WBC (Auto) Urine RBC (Auto) Urine Bacteria Hyaline Casts Urine Mucus Ur Random Sodium Urine Creatinine 07/08/17 11:11 WBC RBC Hgb Hct MCV MCH MCHC RDW Plt Count MPV Neutrophils % Lymphocytes % Monocytes % Eosinophils % Basophils % Sodium Potassium Chloride Carbon Dioxide Anion Gap BUN Creatinine Creat Clearance w eGFR POC Glucometer 170 Random Glucose Hemoglobin A1c % Calcium Phosphorus Magnesium Total Bilirubin AST ALT Alkaline Phosphatase Troponin I Total Protein Albumin Vitamin B12 Serum Folate Urine Color Urine Appearance Urine pH Ur Specific [place] Urine Protein Urine Glucose (UA) Urine Ketones Urine Blood Urine Nitrite Urine Bilirubin Urine Urobilinogen Ur Leukocyte Esterase Urine WBC (Auto) Urine RBC (Auto) Urine Bacteria Hyaline Casts Urine Mucus Ur Random Sodium Urine Creatinine Physical Exam: NAD ,MMM. CV: RRR, Lungs : CTAB , decreased breath sounds at bases Ext: 1+ edema Abd: soft NT, ND , NL BS , obese . discoloration of skin NEuro: EOMI, no facial droop, tongue at mid line . RUE: shoulder abduction 3/5 , shoulder flexion 3.5 , biceps and triceps 4/5 . 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 LUE: shoulder abduction 3/5 , shoulder flexion 3.5 , biceps and triceps 4/5 . 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 LLE: hip flexion 1/5 , knee flexion and extension 1/5. ankle dorsiflexion and plantar flexion 4/5 . RLR: hip flexion 1/5 , knee flexion and extension 1/5. ankle dorsiflexion and plantar flexion 4/5 reflexes 1+ knee jerk and biceps sensation to light touch decreased in feet , legs and hands contracted fingers in R hand declined rectal exam for tone Assessment/Plan: 66 y/o man with h/o C5-6 fusion, DM , CKD , retinopathy, neuropathy, HLP, CHF , DOMINIK , CAD s/p RCA stent 2010, s/p TAVR , and other medical problems who presented with progressive weakness of extremities 1- Weakness in upper and lower extremities. could be from spinal stenosis due to weakness, but there is no hyperreflexia on exam. unfortunately can't get MRI f C spine or L spine. - neuro sx - appreciate neuro Recs ( d/w Dr. Angulo ) - possible surgical intervention - asa and plavix held - need CPAP after extubation 2- CKD ; unknown base line . 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 hold long acting and cont SSI 4- h/o CAD , s/p RCA stenting: - cont BB, hold asa , and plavix 5- HTN: cont BB , norvasc , HCTZ and increaed dose of hydralazine 6- neuropathy: cont neurontin DVT PX Visit type - Emergency Visit Emergency Visit: Yes ED Registration Date: 07/07/17 Care time: The patient presented to the Emergency Department on the above date and was hospitalized for further evaluation of their emergent condition. - New Patient This patient is new to me today: Yes Date on this admission: 07/08/17 - Critical Care Critical Care patient: No
--- NOTE | 2017-07-08 18:39 | CON.NEURO ---
Consult - History of Present Illness History of Present Illness: 66 year old male, poor historian, medical history if CHF, HTN, DM, TAVR, cervical stenosis prior surgery in 2008( ? date) -[facility] , who presents to the emergency room with inability to ambulate due to worsening chronic back pain. He has been in wheelchair for some years though over month has been unable to walk. Patient sates he was sent by dr jose, for ore op clearance for spinal surgery. He endorsed increased pain, numbness and tingling of bilateral lower extremities, feet, and hands. He was ajay to walk to the bathroom a few days ago, now cannot. He also admits to bladder and bowel incontinence, which has been going on for a while. Patient was scheduled for an MRI recently here but was unable to fit into the MRI machine. CT C spine -- shows fusion C5/C6-- await official. 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 No: AFIB Pulmonary: Yes: COPD, Sleep Apnea Gastrointestinal: No: Ascites Hepatobiliary: No: Cirrhosis Renal/: Yes: Renal Inusuff Psych: No: Addictions Musculoskeletal: Yes: Chronic low back pain, Paraplegia Rheumatology: No: Fibromyalgia ENT: No: Allergic Rhinitis Endocrine: Yes: Diabetes Mellitus - Past Surgical History Additional Surgical History: previous cervical surgery/TAVR - Alcohol/Substance Use Hx Alcohol Use: No - Smoking History Smoking history: Former smoker Have you smoked in the past 12 months: No - Social History History of Recent Travel: No Home Medications - Allergies Allergies/Adverse Reactions: Allergies Allergy/AdvReac Type Severity Reaction Status Date / Time furosemide [From Lasix] Allergy Verified 07/07/17 15:34 latex Allergy Verified 07/07/17 15:34 - Home Medications Home Medications: Ambulatory Orders Amlodipine Besylate 10 mg PO DAILY 07/08/17 Aspirin [Aspirin EC] 81 mg PO DAILY 07/08/17 Cholecalciferol (Vitamin D3) [Vitamin D] 2,000 unit PO DAILY 07/08/17 Clopidogrel Bisulfate [Clopidogrel] 75 mg PO DAILY 07/08/17 Docusate Sodium 100 mg PO DAILY 07/08/17 Gabapentin 600 mg PO TID 07/08/17 Hydralazine HCl 25 mg PO DAILY 07/08/17 Hydrochlorothiazide 25 mg PO DAILY 07/08/17 Metoprolol Tartrate 25 mg PO DAILY 07/08/17 Ranitidine [Zantac -] 150 mg PO DAILY 07/08/17 Sennosides [Senna] 8.6 mg PO DAILY 07/08/17 Simvastatin 20 mg PO DAILY 07/08/17 Physical Exam-Neuro Vital Signs: Vital Signs Temperature 98.8 F 07/08/17 17:23 Pulse Rate 65 07/08/17 17:23 Respiratory Rate 20 07/08/17 17:23 Blood Pressure 160/92 07/08/17 17:23 O2 Sat by Pulse Oximetry (%) 99 07/08/17 09:00 Constitutional: Yes: Well Nourished Labs: CBC, BMP 07/08/17 06:30 07/08/17 06:30 INR, PTT INR 1.04 (0.82-1.09) 07/07/17 16:52 - Neuro Exam Level Of Consciousness: Yes: Alert, Oriented to Person (awake, alert, EOMI, no facial, motor: weakness TR 4/5 BL, interoseii 4/5 (left weaker than R) ; deltoid 4+/5, LE-barely able to move, can wiggle toes ; stocking to knees and glove to elbows --PP, no sesnory level, reflexes 2+ Tr, BI /BR trace, patellar and achilles (-), plantars dwn ) Imaging - Results Cat Scan: Image Reviewed Problem List - Problems (1) Cervical myelopathy Code(s): G95.9 - DISEASE OF SPINAL CORD, UNSPECIFIED (2) Lumbosacral spondylosis Code(s): M47.817 - SPONDYLS W/O MYELOPATHY OR RADICULOPATHY, LUMBOSACR REGION (3) Lumbosacral spondylosis Code(s): M47.817 - SPONDYLS W/O MYELOPATHY OR RADICULOPATHY, LUMBOSACR REGION (4) Diabetes Code(s): E11.9 - TYPE 2 DIABETES MELLITUS WITHOUT COMPLICATIONS (5) HTN (hypertension) Code(s): I10 - ESSENTIAL (PRIMARY) HYPERTENSION Assessment/Plan 66 year old male, poor historian, medical history if CHF, HTN, DM, TAVR, cervical stenosis prior surgery in 2008( ? date) -[facility] , with progressive gait disability x one month, Residual weakness and has been using wheelchair for years after his spine surgery; suspect progressive cervical myelopathy, with weakness in 4 limbs long tract pattern ? if there is superimposed progressive neuropathy given stocking and glove presentation GBS would not likely occur course of the month ( ? r/o CIDP)--check EMG , check A1c, ESR, SPEP ; will consider LP in that scenario will review CT CS spine and discuss case with neurosurgery check CT LS spine as well HEP SQ/check doppler LE, teds/venodynes PT when able Dr Angulo
[2017-07-08 19:00] LABS: URINE CREATININE 41.1 mg/dL (20-370)
[2017-07-08 19:06] LABS: RATIO URIN PROTEIN/URIN CREAT 6.02 MG/DL
--- NOTE | 2017-07-08 21:13 | CONSULT ---
Consult - text type - Consultation Consultation Note: Hardeep Edwards is a 66 years old male who was referred by Dr. Lebronfor evaluation and treatment of neck and lower back pain. Mr. Edwards presents with complaints of neck and lower back pain which he stated occurred without any known accident/injury. He stated that he was diagnosed with diabetes neuropathy which was so bad that he would be cooking or boiling a pot on the stove and he couldnt feel the hotness of the pot, declaring: [I] would burn his hands while cooking. He reported numbness and tingling in his hands which affected his activities and daily living and made some activities unsafe to carry out. In 1998, he was evaluated and treated at [facility] in the [place] and underwent reconstructive surgery of cervical spine due to cervical myelopathy/disc herniation based on findings from MRI and other studies, it appears that this was ACDF at the C56 level. He had hoped that this surgery would correct his numbness and paresthesias in his hands. Unfortunately , he awakened after surgery with complaints of increased weakness in his upper and lower extremities. When they stood him up, his legs were wobbly and weak. I was walking like a 88 year old man though I was only in my 40s. He was sent for rehabilitation which lasted over 2 months because he could no longer walk or hold himself up. He required specialized braces for his lower extremities and extensive physical therapy which never improved his ability to walk. The patient states: I was embarrassed and at the same time afraid to discuss my condition or complain because I was afraid that I would be placed in a senior care...I didnt want to go in a senior care and lose my apartment. He has been confined to a wheelchair for approximately 20-years. He stated every year , I am given a new wheelchair and this is my 4th wheelchair. He has contractures in his hands in the thumb, 2nd and 3rd digits, Right greater than Left. He is unable to hold a glass in his hands. He is unable to feed; bath or dress himself. He is totally dependent on his home health aides for all activities of daily living. He is incontinent of bowel and bladder. He stated I am praying to get use of my hands back. And, maybe out of my wheelchair. PMHx: Congestive heart failure; hard of hearing; Diabetes Mellitus type 2; neuropathy; cervical myelopathy; upper extremity contractures/weakness; paraplegia; wheelchair confined; total assist. The patient was referred for MRI and CT from our clinic when he was seen in April. The patient us not been able to obtain the MRI due to geometric concerns and recently had a notable progression in his deficits with loss of his ability to ambulate short distances and severe increase in back and neck pains. He was brought to the [facility] ER for further evaluation. CT demonstrates severe spondylosis and a congenitally narrow spinal canal with osteophytes and foraminal narrowing at multiple levels. The C56 level appears to be fused. There is some suggestion of severe spondylosis at the C45 level. Given his health concerns and anticoagulation, as well as the limited ability to image him, rapid development of a treatment plan will be challenging. I plan to discuss his case with colleagues and to develop a plan of care. Based upon initial assessment, he may benefit from posterior decompression and stabilization. If there is a soft disc component, it may require revision ventral decompression and fusion.
--- NOTE | 2017-07-08 21:35 | EKG ---
Test Reason : Blood Pressure : / mmHG Vent. Rate : 063 BPM Atrial Rate : 063 BPM P-R Int : 214 ms QRS Dur : 162 ms QT Int : 476 ms P-R-T Axes : 048 -46 105 degrees QTc Int : 487 ms SINUS RHYTHM WITH 1ST DEGREE A-V BLOCK POSSIBLE LEFT ATRIAL ENLARGEMENT LEFT BUNDLE BRANCH BLOCK ABNORMAL ECG NO PREVIOUS ECGS AVAILABLE Confirmed by NBA PRYOR MD ([id number]) on 07/08/2017 9:35:05 PM Referred By: Confirmed By:NBA PRYOR MD
[2017-07-08] MEDS ORDERED: ATORVASTATIN CA 10 MG TABLET (FP) PO SCH (22:00)
[2017-07-08] MEDS: hydrALAZINE HCL 25 MG TABLET (FP) PO SCH (22:15)
[2017-07-08] MEDS: GABAPENTIN 100 MG CAPSULE (FP) PO SCH (22:16)
[2017-07-08] MEDS: HEPARIN NA (PORCINE) 5,000 UNITS/ML 1ML VIAL SQ SCH (22:16)
[2017-07-09 06:06] LABS: SERUM IRON SATURATION 20 % (15-55); TOTAL IRON BINDING CAPACITY 245 ug/dL (250-450); UIBC 196 ug/dL (111-343)
[2017-07-09] MEDS: GABAPENTIN 100 MG CAPSULE (FP) PO SCH ×3 (06:20→21:32)
[2017-07-09] MEDS: INSULIN SLIDING SCALE (NOVOLOG) 1 VIAL SQ SCH ×4 (06:20→21:36)
[2017-07-09] MEDS: HEPARIN NA (PORCINE) 5,000 UNITS/ML 1ML VIAL SQ SCH ×3 (06:20→21:32)
[2017-07-09] MEDS: hydrALAZINE HCL 25 MG TABLET (FP) PO SCH ×3 (06:20→21:32)
[2017-07-09 08:11] LABS: BASO % 0.8 % (0-2.0); EOS % 4.5 % (0-4.5); HEMATOCRIT 30.4 % (35.4-49); HEMOGLOBIN 9.9 GM/dL (11.7-16.9); LYMPH % 20.6 % (8-40); MCH 26.7 pg (25.7-33.7); MCHC 32.6 g/dl (32.0-35.9); MEAN CELL VOLUME 81.9 fl (80-96); MEAN PLT VOLUME 8.8 fl (7.5-11.1); MONO % 14.7 % (3.8-10.2); NEUT % 59.4 % (42.8-82.8); PLATELET COUNT 241 K/MM3 (134-434); RBC 3.71 M/mm3 (4.00-5.60); RDW 14.8 % (11.9-15.9); WHITE BLOOD COUNT 6.7 K/mm3 (4.0-10.0)
[2017-07-09 08:50] LABS: ANION GAP 7 (8-16); BLOOD UREA NITROGEN 55 mg/dL (7-18); CALCIUM 9.3 mg/dL (8.5-10.1); CHLORIDE 106 mmol/L (98-107); CO2 25 mmol/L (21-32); GLUCOSE,RANDOM 106 mg/dL (74-106); POTASSIUM 4.6 mmol/L (3.5-5.1); SODIUM 138 mmol/L (136-145)
[2017-07-09 09:03] LABS: CREATININE 4.4 mg/dL (0.7-1.3)
[2017-07-09] MEDS ORDERED: PT OWN MED DRAWER 7, Y5N ONE (11:19)
[2017-07-09] MEDS: DOCUSATE SODIUM 100 MG CAPSULE (FP) PO SCH (11:22)
[2017-07-09] MEDS: HYDROCHLOROTHIAZIDE 25 MG TABLET (FP) PO SCH (11:22)
[2017-07-09] MEDS: SENNOSIDES 8.6MG TABLET (FP) PO SCH (11:23)
[2017-07-09] MEDS: amLODIPine BESYLATE 10 MG TABLET (FP) PO SCH (11:23)
[2017-07-09] MEDS: metoPROLOL SUCCINATE 25 MG TAB.SR.24H (FP) PO SCH (11:24)
[2017-07-09] MEDS: RANITIDINE HCL 150 MG TABLET (FP) PO SCH (11:24)
--- NOTE | 2017-07-09 11:58 | CONS ---
DATE OF CONSULTATION: 07/09/2017 HISTORY OF PRESENT ILLNESS: The patient is a 66-year-old man with past medical history of diabetes, chronic kidney disease, and C5-C6 fusion who presents with increasing weakness, inability to stand or ambulate. The patient states he has been in a wheelchair for a number of years but was able to ambulate short distances. He has extensive past medical history, which includes a neuropathy due to diabetes as well as at least a left ulnar neuropathy for which he is status post bilateral ulnar transpositions but, again, was doing reasonably well until recently when he has noted increased weakness and numbness. The patient underwent a CAT scan, which showed an old C5-C6 fusion and multilevel central canal stenosis C3-C6. The patient was evaluated by Neurology and referred for electrodiagnostic evaluation. In review of his blood work, currently his BUN is elevated at 55 and creatinine elevated at 4.4, hemoglobin A1C is 6.7. Otherwise, chemistry unremarkable. The patient had an elevated phosphorous of 5.7 and a low albumin 3.2. CBC shows WBCs 6.7, hemoglobin 9.9, platelet count 241. PAST MEDICAL HISTORY: Significant for congestive heart failure, hypertension, diffuse osteoarthritis. PAST SURGICAL HISTORY: TAVR, bilateral ulnar transposition. SOCIAL HISTORY: Lives alone in an apartment with an elevator for access. He has a motorized wheelchair and had been ambulating very short distances or at least able to transfer. Currently bedrest. REVIEW OF SYSTEMS: No headache. No lightheadedness or dizziness. No blurry vision or double vision that is new. No chest pain, shortness of breath, dyspnea on exertion, cough, or abdominal discomfort. He has numbness, tingling, or weakness in the upper and lower extremities. He has real inability to even move the lower extremities distally with bowel and bladder involvement. PHYSICAL EXAMINATION: General: An awake man seen lying on a stretcher. He is in no acute distress. HEENT: Normocephalic and atraumatic. Extraocular muscles appear intact. Neck: Very limited cervical range of motion. Extremities: Atrophy in the intrinsics more than the thenar muscles in his hands and also in the distal lower extremities. Stocking glove deficit in the upper and lower extremities with some edema in the lower extremities. Chronic venostasis changes. He has got clawing of the right more than the left hand and absent reflexes in the upper and lower extremities. Again, he is able to move his legs proximally in the quadriceps 1/5-2/5 but distally 0/5. Results of EMG nerve conduction studies, please refer to report for details. OVERALL IMPRESSION: 1. Limited study due to body habitus, poor tolerance to positioning, and edema of the lower extremities. 2. 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 3. Severe right more than left ulnar neuropathy. 4. Probable at least right moderate carpal tunnel syndrome. 5. Difficult to assess for cervical and lumbosacral radiculopathy due to the severity of his underlying peripheral neuropathy. 6. Probable cervical myelopathy. Workup in progress with a history of C5-C6 fusion underlying canal stenosis. 7. Other past medical history as above. PLAN/SUGGESTION: 1. Follow up with Neurology. 2. Follow up with Neurosurgery. 3. Will need extensive physical therapy. 4. Pain management. 5. Follow up chemistry. 6. Elevated erythrocyte sedimentation rate, possibly needs workup. Thank you for this referral. MARITZA WARREN M.D. [id number]
--- NOTE | 2017-07-09 12:23 | PN ---
Progress Note (short form) - Note Progress Note: Case discussed in Neuroscience group multidisciplinary meeting. Patient would benefit from further diagnostic evaluation to include EMG, Lumbar Puncture, MRI Cervical and Lumbar spine. Patient MIGHT benefit from Cervical decompression and stabilization, however, MRI or CT Myelogram would be required for surgical planning. Indications for potential surgery will be discussed as a group with Kev Frye and Jesenia once this workup is completed. PLAN - EMG - MRI Cervical and Lumbar - Lumbar Puncture with evaluation for GBS - Medical Clearance with restriction of Anticoagulation once surgical plan is developed - Patient may benefit from aggressive course of inpatient Rehabilitation - GI/DVT Prophylaxis
--- NOTE | 2017-07-09 14:26 | PN ---
Teaching Attending Note Name of Resident: Jacobo Yeung ATTENDING PHYSICIAN STATEMENT I saw and evaluated the patient. I reviewed the resident's note and discussed the case with the resident. I agree with the resident's findings and plan as documented. SUBJECTIVE: No fever or chills. has more numbness in upper extremities OBJECTIVE: NAD CV: RRR, Lungs: CTAB , decreased breath sounds at bases Ext: 1+ edema Abd: soft NT, ND , NL BS , obese . discoloration of skin NEuro: EOMI, no facial droop, tongue at mid line . RUE: shoulder abduction 4/5 , shoulder flexion 3/5 , biceps and triceps 4/5 . 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 LUE: shoulder abduction 4/5 , shoulder flexion 3/5 , biceps and triceps 4/5 . 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 LLE: hip flexion 1/5 , knee flexion and extension 1/5. ankle dorsiflexion and plantar flexion 4/5 . RLR: hip flexion 1/5 , knee flexion and extension 1/5. ankle dorsiflexion and plantar flexion 4/5 reflexes 1+ knee jerk and 0 biceps b/l sensation to light touch absent in feet, and decreased in legs and hands contracted fingers in R hand Assessment/Plan: 66 y/o man with h/o C5-6 fusion, DM , CKD , retinopathy, neuropathy, HLP, CHF , DOMINIK , CAD s/p RCA stent 2010, s/p TAVR , and other medical problems who presented with progressive weakness of extremities 1- Weakness in upper and lower extremities. still unclear etiology. case discussed in neuro rounds today. - EMG with axonal and demyelinating disease indicating diabetes nad uremia. severe R ulnar nerve disease and zeina on L ulnar. - LP , higinio ld/w Dr. Lebron - L spine CT done ,penidng read. - Now pt is agreeable to get MRI, will order MRI of C and L spine - cont to hold ASa and plavix - ESR elevated , check CRP - A1c 6.7 , folate and B12 and TSH NL. - SPEP pending - check RPR 2- CKD ; unknown base line . 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 confirm with PCP 4- h/o CAD , s/p RCA stenting: - cont BB, hold asa , and plavix 5- HTN: cont BB, norvasc , HCTZ and increaed dose of hydralazine 6- Neuropathy: cont neurontin DVT PX
--- NOTE | 2017-07-09 16:57 | PN ---
Progress Note, Physician History of Present Illness: Pt seen and examined at bedside. He denies dysuria or heamturia. - Current Medication List Current Medications: Active Medications Acetaminophen (Tylenol -) 650 mg PO Q4H PRN PRN Reason: BACK PAIN Amlodipine Besylate (Norvasc -) 10 mg PO DAILY [facility] Last Admin: 07/09/17 11:23 Dose: 10 mg Atorvastatin Calcium (Lipitor -) 10 mg PO HS [facility] Last Admin: 07/08/17 22:16 Dose: 10 mg Docusate Sodium (Colace -) 100 mg PO DAILY [facility] Last Admin: 07/09/17 11:22 Dose: 100 mg Gabapentin (Neurontin -) 600 mg PO TID [facility] Last Admin: 07/09/17 13:43 Dose: 600 mg Heparin Sodium (Porcine) (Heparin -) 5,000 unit SQ TID [facility] Last Admin: 07/09/17 13:44 Dose: 5,000 unit Hydralazine HCl (Apresoline -) 25 mg PO TID [facility] Last Admin: 07/09/17 13:42 Dose: 25 mg Hydrochlorothiazide (Hctz -) 25 mg PO DAILY [facility] Last Admin: 07/09/17 11:22 Dose: 25 mg Insulin Aspart (Novolog Vial Sliding Scale -) 1 vial SQ ACHS [facility] PRN Reason: Protocol Last Admin: 07/09/17 13:24 Dose: 2 units Metoprolol Succinate (Toprol Xl -) 25 mg PO DAILY [facility] Last Admin: 07/09/17 11:24 Dose: 25 mg Ranitidine HCl (Zantac -) 150 mg PO DAILY [facility] Last Admin: 07/09/17 11:24 Dose: 150 mg Senna (Senna -) 1 tab PO DAILY [facility] Last Admin: 07/09/17 11:23 Dose: 1 tab - Objective Vital Signs: Vital Signs Temperature 98.2 F 07/09/17 15:24 Pulse Rate 67 07/09/17 15:24 Respiratory Rate 18 07/09/17 15:24 Blood Pressure 154/69 07/09/17 15:24 O2 Sat by Pulse Oximetry (%) 99 07/08/17 21:00 Constitutional: Yes: Calm Eyes: Yes: Conjunctiva Clear HENT: Yes: Atraumatic Neck: Yes: Supple Cardiovascular: Yes: S1, S2 Respiratory: Yes: CTA Bilaterally Gastrointestinal: Yes: Soft, Abdomen, Obese Genitourinary: Yes: WNL Musculoskeletal: Yes: WNL Edema: No Neurological: Yes: Oriented Psychiatric: Yes: Oriented Labs: CBC, BMP 07/09/17 07:00 07/09/17 07:00 INR, PTT INR 1.04 (0.82-1.09) 07/07/17 16:52 Assessment/Plan Current Medications Generic Name Dose Route Start Last Admin Trade Name Freq PRN Reason Stop Dose Admin Acetaminophen 650 mg 07/07/17 21:40 Tylenol - PO Q4H PRN BACK PAIN Amlodipine Besylate 10 mg 07/08/17 10:00 07/09/17 11:23 Norvasc - PO 10 mg DAILY ELENA Administration Atorvastatin Calcium 10 mg 07/08/17 22:00 07/08/17 22:16 Lipitor - PO 10 mg HS ELENA Administration Docusate Sodium 100 mg 07/08/17 10:00 07/09/17 11:22 Colace - PO 100 mg DAILY ELENA Administration Gabapentin 600 mg 07/08/17 22:00 07/09/17 13:43 Neurontin - PO 600 mg TID ELENA Administration Heparin Sodium (Porcine) 5,000 unit 07/08/17 22:00 07/09/17 13:44 Heparin - SQ 5,000 unit TID ELENA Administration Hydralazine HCl 25 mg 07/08/17 22:00 07/09/17 13:42 Apresoline - PO 25 mg TID ELENA Administration Hydrochlorothiazide 25 mg 07/08/17 10:00 07/09/17 11:22 Hctz - PO 25 mg DAILY ELENA Administration Insulin Aspart 1 vial 07/07/17 22:00 07/09/17 13:24 Novolog Vial Sliding Scale - SQ 2 units ACHS ELENA Administration Protocol Metoprolol Succinate 25 mg 07/09/17 10:00 07/09/17 11:24 Toprol Xl - PO 25 mg DAILY ELENA Administration Ranitidine HCl 150 mg 07/08/17 10:00 07/09/17 11:24 Zantac - PO 150 mg DAILY ELENA Administration Senna 1 tab 07/08/17 10:00 07/09/17 11:23 Senna - PO 1 tab DAILY ELENA Administration Impression 1. CKD 2. DM 3. cervical spine disease 4. HTN 5. DM 6. obesity 7. anemia 8. DOMINIK 9. HLD 10. CHF Plan - general assistant improved from admission however is still higher than baseline. Pt says he has a GFR of about 20. His last outpt visit was about a month ago. - repeat labs in am - cont current meds - do not give nsaids - Neurosurgery and cardiac evaluation - will follow Dr Andrade
--- NOTE | 2017-07-09 17:42 | PN ---
Progress Note (short form) - Note Progress Note: pt sleeping but arouses easily continues to states difficulty moving legs CT reviewed he agrees for MRI -if he gets Po sedation CT LS spine ; IMPRESSION: Evaluation is moderately limited due to artifact as a result of body habitus. Moderate bilateral L4-L5 and L5-S1 degenerative facet arthropathy. Moderate to marked L4-5 and moderate L3-L4 central canal stenosis. A small focus of increased density seen within the left L5 lateral recess which may be on the basis of normal variation versus representing an extruded disc fragment. Correlate clinically. If there is ongoing symptomatology MRI evaluation is suggested. Vital Signs Temperature 97.6 F 07/09/17 16:58 Pulse Rate 70 07/09/17 16:58 Respiratory Rate 20 07/09/17 16:58 Blood Pressure 160/75 07/09/17 16:58 O2 Sat by Pulse Oximetry (%) 99 07/08/17 21:00 CBCD WBC 6.7 K/mm3 (4.0-10.0) 07/09/17 07:00 RBC 3.71 M/mm3 (4.00-5.60) L 07/09/17 07:00 Hgb 9.9 GM/dL (11.7-16.9) L 07/09/17 07:00 Hct 30.4 % (35.4-49) L 07/09/17 07:00 MCV 81.9 fl (80-96) 07/09/17 07:00 MCHC 32.6 g/dl (32.0-35.9) 07/09/17 07:00 RDW 14.8 % (11.9-15.9) 07/09/17 07:00 Plt Count 241 K/MM3 (134-434) 07/09/17 07:00 MPV 8.8 fl (7.5-11.1) 07/09/17 07:00 CMP Sodium 138 mmol/L (136-145) 07/09/17 07:00 Potassium 4.6 mmol/L (3.5-5.1) 07/09/17 07:00 Chloride 106 mmol/L (98-107) 07/09/17 07:00 Carbon Dioxide 25 mmol/L (21-32) 07/09/17 07:00 Anion Gap 7 (8-16) L 07/09/17 07:00 BUN 55 mg/dL (7-18) H 07/09/17 07:00 Creatinine 4.4 mg/dL (0.7-1.3) H 07/09/17 07:00 Creat Clearance w eGFR 12.46 (>60) 07/07/17 17:55 Calcium 9.3 mg/dL (8.5-10.1) 07/09/17 07:00 Total Bilirubin 0.2 mg/dL (0.2-1.0) 07/07/17 17:55 AST 14 U/L (15-37) L 07/07/17 17:55 ALT 18 U/L (12-78) 07/07/17 17:55 Alkaline Phosphatase 113 U/L (45-117) 07/07/17 17:55 Total Protein 7.2 g/dl (6.4-8.2) 07/07/17 17:55 Albumin 3.2 g/dl (3.4-5.0) L 07/07/17 17:55 66 year old male, poor historian, medical history if CHF, HTN, DM, TAVR, cervical stenosis prior surgery in 2008( ? date) -[facility] , with progressive gait disability x one month, Residual weakness and has been using wheelchair for years after his spine surgery; suspect progressive cervical myelopathy, with weakness in 4 limbs long tract pattern ? if there is superimposed progressive neuropathy given stocking and glove presentation GBS would not likely occur course of the month ( ? r/o CIDP)-- EMG P check A1c, ESR, SPEP ; will consider LP in that scenario Check MRI C and LS spine, premedicate with ATIVAN 2 mg PM Consult-Dr GAN HEP SQ/check doppler LE, teds/venodynes PT when able Dr Angulo Problem List - Problems (1) Cervical myelopathy Code(s): G95.9 - DISEASE OF SPINAL CORD, UNSPECIFIED (2) Lumbosacral spondylosis Code(s): M47.817 - SPONDYLS W/O MYELOPATHY OR RADICULOPATHY, LUMBOSACR REGION (3) Lumbosacral spondylosis Code(s): M47.817 - SPONDYLS W/O MYELOPATHY OR RADICULOPATHY, LUMBOSACR REGION (4) Diabetes Code(s): E11.9 - TYPE 2 DIABETES MELLITUS WITHOUT COMPLICATIONS (5) HTN (hypertension) Code(s): I10 - ESSENTIAL (PRIMARY) HYPERTENSION
[2017-07-09] MEDS ORDERED: LORazepam 2 MG/ML SDV VIAL IM PRN (17:45)
--- NOTE | 2017-07-09 20:43 | PN ---
Physical Exam: SUBJECTIVE: Patient seen and examined OBJECTIVE: Vital Signs Period Temp Pulse Resp BP Sys/Kauffman Pulse Ox Last 24 Hr 97.6 F-98.8 F 62-70 18-20 146-162/69-75 99 GENERAL: The patient is awake, alert, and fully oriented, in no acute distress. HEAD: Normal with no signs of trauma. EYES: PERRL, extraocular movements intact, sclera anicteric, conjunctiva clear. No ptosis. ENT: Ears normal, nares patent, oropharynx clear without exudates, moist mucous membranes. NECK: Trachea midline, full range of motion, supple. LUNGS: Breath sounds equal, clear to auscultation bilaterally, no wheezes, no crackles, no accessory muscle use. HEART: Regular rate and rhythm, S1, S2 without murmur, rub or gallop. ABDOMEN: Soft, nontender, nondistended, normoactive bowel sounds, no guarding, no rebound, no hepatosplenomegaly, no masses. EXTREMITIES: 2+ pulses, warm, well-perfused, no edema. NEUROLOGICAL: Cranial nerves II through XII grossly intact. Normal speech, gait not observed. PSYCH: Normal mood, normal affect. SKIN: Warm, dry, normal turgor, no rashes or lesions noted Laboratory Results - last 24 hr 07/08/17 07/08/17 07/09/17 06:30 22:13 06:18 WBC RBC Hgb Hct MCV MCH MCHC RDW Plt Count MPV Neutrophils % Lymphocytes % Monocytes % Eosinophils % Basophils % ESR Sodium Potassium Chloride Carbon Dioxide Anion Gap BUN Creatinine POC Glucometer 140 114 Random Glucose Hemoglobin A1c % Calcium Iron 49 TIBC 245 L Iron Saturation 20 TSH 07/09/17 07/09/17 07/09/17 07:00 07:00 07:00 WBC 6.7 RBC 3.71 L Hgb 9.9 L Hct 30.4 L MCV 81.9 MCH 26.7 MCHC 32.6 RDW 14.8 Plt Count 241 MPV 8.8 Neutrophils % 59.4 Lymphocytes % 20.6 Monocytes % 14.7 H Eosinophils % 4.5 Basophils % 0.8 ESR 99 H Sodium 138 Potassium 4.6 Chloride 106 Carbon Dioxide 25 Anion Gap 7 L BUN 55 H Creatinine 4.4 H POC Glucometer Random Glucose 106 Hemoglobin A1c % Calcium 9.3 Iron TIBC Iron Saturation TSH 2.44 07/09/17 07/09/17 07/09/17 07:00 11:29 16:34 WBC RBC Hgb Hct MCV MCH MCHC RDW Plt Count MPV Neutrophils % Lymphocytes % Monocytes % Eosinophils % Basophils % ESR Sodium Potassium Chloride Carbon Dioxide Anion Gap BUN Creatinine POC Glucometer 154 197 Random Glucose Hemoglobin A1c % 6.7 H D Calcium Iron TIBC Iron Saturation TSH Active Medications Generic Name Dose Route Start Last Admin Trade Name Freq PRN Reason Stop Dose Admin Acetaminophen 650 mg 07/07/17 21:40 Tylenol - PO Q4H PRN BACK PAIN Amlodipine Besylate 10 mg 07/08/17 10:00 07/09/17 11:23 Norvasc - PO 10 mg DAILY ELENA Administration Atorvastatin Calcium 10 mg 07/08/17 22:00 07/08/17 22:16 Lipitor - PO 10 mg HS ELENA Administration Docusate Sodium 100 mg 07/08/17 10:00 07/09/17 11:22 Colace - PO 100 mg DAILY ELENA Administration Gabapentin 600 mg 07/08/17 22:00 07/09/17 13:43 Neurontin - PO 600 mg TID ELENA Administration Heparin Sodium (Porcine) 5,000 unit 07/08/17 22:00 07/09/17 13:44 Heparin - SQ 5,000 unit TID ELENA Administration Hydralazine HCl 25 mg 07/08/17 22:00 07/09/17 13:42 Apresoline - PO 25 mg TID ELENA Administration Hydrochlorothiazide 25 mg 07/08/17 10:00 07/09/17 11:22 Hctz - PO 25 mg DAILY ELENA Administration Insulin Aspart 1 vial 07/07/17 22:00 07/09/17 17:51 Novolog Vial Sliding Scale - SQ 2 units ACHS ELENA Administration Protocol Metoprolol Succinate 25 mg 07/09/17 10:00 07/09/17 11:24 Toprol Xl - PO 25 mg DAILY ELENA Administration Ranitidine HCl 150 mg 07/08/17 10:00 07/09/17 11:24 Zantac - PO 150 mg DAILY ELENA Administration Senna 1 tab 07/08/17 10:00 07/09/17 11:23 Senna - PO 1 tab DAILY ELENA Administration ASSESSMENT/PLAN: This is a 66 year old male with a medical history of TAVR, DM, HTN, CHF, cervical stenosis admitted for increasing bilateral leg weakness and inability to ambulate. #bilateral leg and arm weakness 2/2 cervical compression -Neurosurgery onboard -Neurology onboard -need preop clearance -cardio consult -pulm consult as patient as DOMINIK on CPAP -f/u RPR -for MRI CSPINE -EMG shows axonal and demyelinating disease consistent with DM and uremia. -treatment plan as per neurology and neurosurgery #Bilateral leg numbness likely 2/2 DM -c/w neurontin #acute kidney injury vs CKD -need baseline cr; will contact PCP Dr. Nasreen Mederos ([phone]) -renal bladder US: no abnormalities. Pre void residual 337 -renal consult #DM -tradjenta 95 u daily -ISS -BGM #HTN-controlled -c/w home toprol xl 25 -c/w home hydralazine 25 TID -c/w home HCTZ 25 PO #Hx CAD, TAVR -Holding ASA and plavix for possible surgery #FEN -no fluids indicated -lytes WNL -diabetic sodium controlled diet #Prophy -Heparin SQ 5ku TID -zantac 150 daily #Dispo -admit to med surg -surgery currently being formulated Visit type - Emergency Visit Emergency Visit: Yes ED Registration Date: 07/07/17 Care time: The patient presented to the Emergency Department on the above date and was hospitalized for further evaluation of their emergent condition. - New Patient This patient is new to me today: Yes Date on this admission: 07/09/17 - Critical Care Critical Care patient: No
[2017-07-09] MEDS ORDERED: INSULIN (NOVOLOG) ASPART 100 UNITS/ML 10ML VIAL ONE (21:13)
[2017-07-09] MEDS: ATORVASTATIN CA 10 MG TABLET (FP) PO SCH (21:32)
[2017-07-10] MEDS: GABAPENTIN 100 MG CAPSULE (FP) PO SCH ×3 (05:55→21:13)
[2017-07-10] MEDS: hydrALAZINE HCL 25 MG TABLET (FP) PO SCH ×3 (05:55→21:13)
[2017-07-10] MEDS: HEPARIN NA (PORCINE) 5,000 UNITS/ML 1ML VIAL SQ SCH ×3 (06:00→21:12)
[2017-07-10] MEDS: INSULIN SLIDING SCALE (NOVOLOG) 1 VIAL SQ SCH ×4 (06:05→21:12)
[2017-07-10 08:37] LABS: HEMATOCRIT 30.3 % (35.4-49); HEMOGLOBIN 9.9 GM/dL (11.7-16.9); MCH 26.7 pg (25.7-33.7); MCHC 32.5 g/dl (32.0-35.9); MEAN PLT VOLUME 8.8 fl (7.5-11.1); PLATELET COUNT 217 K/MM3 (134-434); RDW 14.4 % (11.9-15.9); WHITE BLOOD COUNT 7.1 K/mm3 (4.0-10.0)
[2017-07-10 08:57] LABS: ANION GAP 12 (8-16); BLOOD UREA NITROGEN 62 mg/dL (7-18); CALCIUM 9.7 mg/dL (8.5-10.1); CHLORIDE 104 mmol/L (98-107); CO2 23 mmol/L (21-32); CREATININE 4.3 mg/dL (0.7-1.3); GLUCOSE,RANDOM 174 mg/dL (74-106); POTASSIUM 4.6 mmol/L (3.5-5.1); SODIUM 139 mmol/L (136-145)
[2017-07-10] MEDS ORDERED: PT OWN MED DRAWER 7, Y5N ONE ×2 (09:00→20:32)
[2017-07-10] MEDS: DOCUSATE SODIUM 100 MG CAPSULE (FP) PO SCH (09:33)
[2017-07-10] MEDS: POLYETHYLENE GLYCOL 3350 119 GM BTL PO SCH (09:34)
[2017-07-10] MEDS: HYDROCHLOROTHIAZIDE 25 MG TABLET (FP) PO SCH (09:34)
[2017-07-10] MEDS: amLODIPine BESYLATE 10 MG TABLET (FP) PO SCH (09:35)
[2017-07-10] MEDS: metoPROLOL SUCCINATE 25 MG TAB.SR.24H (FP) PO SCH (09:35)
[2017-07-10] MEDS: SENNOSIDES 8.6MG TABLET (FP) PO SCH (09:35)
[2017-07-10] MEDS: RANITIDINE HCL 150 MG TABLET (FP) PO SCH (09:36)
--- NOTE | 2017-07-10 09:53 | PN ---
Progress Note (short form) - Note Progress Note: Resting in NAD. Used CPAP throughout the night. No CP or SOB. No acute events overnight. No change in pain/numbness/weakness. Intake & Output 07/07/17 07/08/17 07/09/17 07/10/17 23:59 23:59 23:59 23:59 Intake Total 310 200 Output Total 850 Balance -540 200 Weight 350 lb 273 lb Last Vital Signs Temp Pulse Resp BP Pulse Ox 98.1 F 60 18 159/75 96 07/10/17 05:46 07/10/17 05:46 07/10/17 05:46 07/10/17 05:46 07/09/17 21:00 Active Medications Acetaminophen (Tylenol -) 650 mg PO Q4H PRN PRN Reason: BACK PAIN Amlodipine Besylate (Norvasc -) 10 mg PO DAILY [facility] Last Admin: 07/10/17 09:35 Dose: 10 mg Atorvastatin Calcium (Lipitor -) 10 mg PO HS [facility] Last Admin: 07/09/17 21:32 Dose: 10 mg Docusate Sodium (Colace -) 100 mg PO DAILY [facility] Last Admin: 07/10/17 09:33 Dose: 100 mg Gabapentin (Neurontin -) 100 mg PO TID [facility] Last Admin: 07/10/17 05:55 Dose: 100 mg Heparin Sodium (Porcine) (Heparin -) 5,000 unit SQ TID [facility] Last Admin: 07/10/17 06:00 Dose: 5,000 unit Hydralazine HCl (Apresoline -) 25 mg PO TID [facility] Last Admin: 07/10/17 05:55 Dose: 25 mg Hydrochlorothiazide (Hctz -) 25 mg PO DAILY [facility] Last Admin: 07/10/17 09:34 Dose: 25 mg Insulin Aspart (Novolog Vial Sliding Scale -) 1 vial SQ ACHS [facility] PRN Reason: Protocol Last Admin: 07/10/17 06:05 Dose: 2 units Metoprolol Succinate (Toprol Xl -) 25 mg PO DAILY [facility] Last Admin: 07/10/17 09:35 Dose: 25 mg Polyethylene Glycol (Miralax (For Daily Use) -) 17 gm PO DAILY [facility] Last Admin: 07/10/17 09:34 Dose: 17 gm Ranitidine HCl (Zantac -) 150 mg PO DAILY [facility] Last Admin: 07/10/17 09:36 Dose: 150 mg Senna (Senna -) 1 tab PO DAILY [facility] Last Admin: 07/10/17 09:35 Dose: 1 tab Constitutional: Yes: NAD Eyes: Yes: EOM Intact HENT: Yes: Normocephalic Neck: Yes: Trachea Midline Cardiovascular: Yes: Regular Rate and Rhythm, S1, S2 Respiratory: Yes: CTA Bilaterally Gastrointestinal: Yes: Normal Bowel Sounds, Soft, Abdomen, Obese Musculoskeletal: Yes: Muscle Weakness Edema: LLE: 1+, RLE: 1+ Integumentary: Yes: WNL Neurological: Yes: Alert, Pre-Existing Deficit, Weakness Labs: Laboratory Results - last 24 hr 07/09/17 07/09/17 07/09/17 11:29 16:34 21:35 WBC RBC Hgb Hct MCV MCH MCHC RDW Plt Count MPV Sodium Potassium Chloride Carbon Dioxide Anion Gap BUN Creatinine POC Glucometer 154 197 197 Random Glucose Calcium C-Reactive Protein RPR Titer 07/10/17 07/10/17 07/10/17 05:57 07:00 07:00 WBC RBC Hgb Hct MCV MCH MCHC RDW Plt Count MPV Sodium 139 Potassium 4.6 Chloride 104 Carbon Dioxide 23 Anion Gap 12 BUN 62 H Creatinine 4.3 H POC Glucometer 174 Random Glucose 174 H D Calcium 9.7 C-Reactive Protein 3.4 H RPR Titer Nonreactive 07/10/17 07:00 WBC 7.1 RBC 3.70 L Hgb 9.9 L Hct 30.3 L MCV 82.0 MCH 26.7 MCHC 32.5 RDW 14.4 Plt Count 217 MPV 8.8 Sodium Potassium Chloride Carbon Dioxide Anion Gap BUN Creatinine POC Glucometer Random Glucose Calcium C-Reactive Protein RPR Titer Problem List - Problems (1) CHF (congestive heart failure) Code(s): I50.9 - HEART FAILURE, UNSPECIFIED (2) DOMINIK (obstructive sleep apnea) Code(s): G47.33 - OBSTRUCTIVE SLEEP APNEA (ADULT) (PEDIATRIC) (3) Diabetes Code(s): E11.9 - TYPE 2 DIABETES MELLITUS WITHOUT COMPLICATIONS (4) Back pain Code(s): M54.9 - DORSALGIA, UNSPECIFIED (5) HTN (hypertension) Code(s): I10 - ESSENTIAL (PRIMARY) HYPERTENSION (6) S/P TAVR (transcatheter aortic valve replacement) Code(s): Z95.2 - PRESENCE OF PROSTHETIC HEART VALVE Assessment/Plan Neuro workup ongoing CPAP QHS O2 as needed BD TX PRN No clear Pulmonary contraindication for OR/anesthesia (once we determine which procedure is planned) NIPPV post op Dr Ortez
--- NOTE | 2017-07-10 11:20 | PN ---
Progress Note (short form) - Note Progress Note: Patient cleared by medical team and urology, Dr. Burt for MRI. Penile implant was placed >6 weeks and deemed safe for MRI.
[2017-07-10] MEDS: LORazepam 2 MG/ML SDV VIAL IVPUSH ONE (11:46)
[2017-07-10] MEDS: BRIMONIDINE TARTRATE 0.1% OPHTHALMIC 5 ML BOTTLE OU SCH ×2 (13:53→21:15)
[2017-07-10] MEDS: OFLOXACIN 0.3% OPHTHALMIC SOLUTION 5 ML BOTTLE OU SCH ×2 (13:54→21:14)
[2017-07-10] MEDS ORDERED: PATIENT'S OWN MEDICATION (NON-FORMULARY) (Brinzolamide [Azopt] 1 DROP) OU SCH (14:00)
--- NOTE | 2017-07-10 14:08 | PN ---
Teaching Attending Note Name of Resident: Jacobo Yeung ATTENDING PHYSICIAN STATEMENT I saw and evaluated the patient. I reviewed the resident's note and discussed the case with the resident. I agree with the resident's findings and plan as documented. SUBJECTIVE: No fever or chills. has no abd pain, no SOB. still has the weakness and the numbness in feet, legs and hands , and R forearm. OBJECTIVE: NAD CV: RRR, Lungs: CTAB , decreased breath sounds at bases Ext: 1+ edema Abd: soft NT, ND , NL BS , obese . discoloration of skin NEuro: EOMI, no facial droop, tongue at mid line . RUE: shoulder abduction 4/5 , shoulder flexion 4/5 , biceps and triceps 4/5 . 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 LUE: shoulder abduction 4/5 , shoulder flexion 4/5 , biceps and triceps 4/5 . 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 LLE: hip flexion 1/5 , knee flexion and extension 1/5. ankle dorsiflexion and plantar flexion 4/5 . RLR: hip flexion 1/5 , knee flexion and extension 1/5. ankle dorsiflexion and plantar flexion 4/5 reflexes 0 knee jerk and 0 biceps b/l sensation to light touch absent in feet, and decreased in legs and hands contracted fingers in R hand Assessment/Plan: 66 y/o man with h/o C5-6 fusion, DM , CKD , retinopathy, neuropathy, HLP, CHF , DOMINIK , CAD s/p RCA stent 2010, s/p TAVR , and other medical problems who presented with progressive weakness of extremities 1- Weakness in upper and lower extremities. most likely due to cervical pathology MRI of C and L spine ordered but pt did not fit. CT of L spine noted - SPEP pending - Pain consult - cont to hold ASA and plavix for possible surgical procedure - FL non reactive - d/w Dr. Guidry, higinio try to obtain CT Myelogram if possible before proceeding with any surgical procedure ( possible posterior decompression and stabilization tomorrow ) 2- CKD ; unknown base line. 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
--- NOTE | 2017-07-10 14:19 | PN ---
Progress Note, Physician Chief Complaint: No sob or chest pain History of Present Illness: This is a 66 year old male with a PMH of HTN, DM, HLD, obesity and CRI. He is S/ P an RCA stent 05/30/10. He had aortic stenosis and received a transapical TAVR on 07/04/13 at [facility]. He is wheelchair bound. Last Cardiac Cath 06/17/13 patent RCA stent. He presents now with back pain and weakness to his extremities. He denies cardiac symptoms at this time. - Current Medication List Current Medications: Active Medications Acetaminophen (Tylenol -) 650 mg PO Q4H PRN PRN Reason: BACK PAIN Amlodipine Besylate (Norvasc -) 10 mg PO DAILY [facility] Last Admin: 07/10/17 09:35 Dose: 10 mg Atorvastatin Calcium (Lipitor -) 10 mg PO HS [facility] Last Admin: 07/09/17 21:32 Dose: 10 mg Brimonidine Tartrate (Alphagan P 0.1% -) 1 drop OU BID [facility] Last Admin: 07/10/17 13:53 Dose: 1 drop Docusate Sodium (Colace -) 100 mg PO DAILY [facility] Last Admin: 07/10/17 09:33 Dose: 100 mg Gabapentin (Neurontin -) 100 mg PO TID [facility] Last Admin: 07/10/17 13:53 Dose: 100 mg Heparin Sodium (Porcine) (Heparin -) 5,000 unit SQ TID [facility] Last Admin: 07/10/17 13:54 Dose: 5,000 unit Hydralazine HCl (Apresoline -) 25 mg PO TID [facility] Last Admin: 07/10/17 13:52 Dose: 25 mg Hydrochlorothiazide (Hctz -) 25 mg PO DAILY [facility] Last Admin: 07/10/17 09:34 Dose: 25 mg Insulin Aspart (Novolog Vial Sliding Scale -) 1 vial SQ ACHS [facility] PRN Reason: Protocol Last Admin: 07/10/17 13:13 Dose: 4 units Metoprolol Succinate (Toprol Xl -) 25 mg PO DAILY [facility] Last Admin: 07/10/17 09:35 Dose: 25 mg Non-Formulary Medication (Brinzolamide [Azopt]) 1 drop OU TID [facility] Ofloxacin (Ocuflox 0.3% Eye Drops -) 1 drop OU TID [facility] Last Admin: 07/10/17 13:54 Dose: 1 drop Polyethylene Glycol (Miralax (For Daily Use) -) 17 gm PO DAILY [facility] Last Admin: 07/10/17 09:34 Dose: 17 gm Ranitidine HCl (Zantac -) 150 mg PO DAILY [facility] Last Admin: 07/10/17 09:36 Dose: 150 mg Senna (Senna -) 1 tab PO DAILY [facility] Last Admin: 07/10/17 09:35 Dose: 1 tab - Objective Vital Signs: Vital Signs Temperature 98.1 F 07/10/17 08:10 Pulse Rate 61 07/10/17 08:10 Respiratory Rate 18 07/10/17 08:10 Blood Pressure 173/72 07/10/17 08:10 O2 Sat by Pulse Oximetry (%) 96 07/09/17 21:00 Constitutional: Yes: No Distress Cardiovascular: Yes: Regular Rate and Rhythm, Murmur (2/6 HSM upper sternal border), S1, S2. No: JVD Respiratory: Yes: CTA Bilaterally Edema: No Labs: CBC, BMP 07/10/17 07:00 07/10/17 07:00 INR, PTT INR 1.04 (0.82-1.09) 07/07/17 16:52 Assessment/Plan This is a 66 year old male with a PMH of HTN, DM, HLD, obesity and CRI. He is S/ P an RCA stent 05/30/10. He had aortic stenosis and received a transapical TAVR on 07/04/13 at [facility]. He is wheelchair bound. Last Cardiac Cath 06/17/13 patent RCA stent. He presents now with back pain and weakness to his extremities and is for possible neurosurgery. He denies cardiac symptoms at this time. No signs of chf on exam. EKG: sinus with LBBB, 1 avb. Echocardiogram with normal LVEF and no significant or AR. No further cardiac testing prior to surgery. Can stop aspirin/plavix if needed for surgery. Continue current bp meds and increase hydralazine if needed for better bp control
--- NOTE | 2017-07-10 14:54 | PN ---
Progress Note, Physician History of Present Illness: Pt seen and examined at bedside. He is awake and alert. He denies shortness of breath. - Current Medication List Current Medications: Active Medications Acetaminophen (Tylenol -) 650 mg PO Q4H PRN PRN Reason: BACK PAIN Amlodipine Besylate (Norvasc -) 10 mg PO DAILY [facility] Last Admin: 07/10/17 09:35 Dose: 10 mg Atorvastatin Calcium (Lipitor -) 10 mg PO HS [facility] Last Admin: 07/09/17 21:32 Dose: 10 mg Brimonidine Tartrate (Alphagan P 0.1% -) 1 drop OU BID [facility] Last Admin: 07/10/17 13:53 Dose: 1 drop Docusate Sodium (Colace -) 100 mg PO DAILY [facility] Last Admin: 07/10/17 09:33 Dose: 100 mg Gabapentin (Neurontin -) 100 mg PO TID [facility] Last Admin: 07/10/17 13:53 Dose: 100 mg Heparin Sodium (Porcine) (Heparin -) 5,000 unit SQ TID [facility] Last Admin: 07/10/17 13:54 Dose: 5,000 unit Hydralazine HCl (Apresoline -) 25 mg PO TID [facility] Last Admin: 07/10/17 13:52 Dose: 25 mg Hydrochlorothiazide (Hctz -) 25 mg PO DAILY [facility] Last Admin: 07/10/17 09:34 Dose: 25 mg Insulin Aspart (Novolog Vial Sliding Scale -) 1 vial SQ ACHS [facility] PRN Reason: Protocol Last Admin: 07/10/17 13:13 Dose: 4 units Metoprolol Succinate (Toprol Xl -) 25 mg PO DAILY [facility] Last Admin: 07/10/17 09:35 Dose: 25 mg Non-Formulary Medication (Brinzolamide [Azopt]) 1 drop OU TID [facility] Ofloxacin (Ocuflox 0.3% Eye Drops -) 1 drop OU TID [facility] Last Admin: 07/10/17 13:54 Dose: 1 drop Polyethylene Glycol (Miralax (For Daily Use) -) 17 gm PO DAILY [facility] Last Admin: 07/10/17 09:34 Dose: 17 gm Ranitidine HCl (Zantac -) 150 mg PO DAILY [facility] Last Admin: 07/10/17 09:36 Dose: 150 mg Senna (Senna -) 1 tab PO DAILY [facility] Last Admin: 07/10/17 09:35 Dose: 1 tab - Objective Vital Signs: Vital Signs Temperature 98.1 F 07/10/17 08:10 Pulse Rate 61 07/10/17 08:10 Respiratory Rate 18 07/10/17 08:10 Blood Pressure 173/72 07/10/17 08:10 O2 Sat by Pulse Oximetry (%) 96 07/09/17 21:00 Constitutional: Yes: Calm Eyes: Yes: Conjunctiva Clear HENT: Yes: Atraumatic Cardiovascular: Yes: S1, S2 Respiratory: Yes: CTA Bilaterally Gastrointestinal: Yes: Soft Genitourinary: Yes: WNL Musculoskeletal: Yes: Muscle Weakness Edema: LLE: Trace, RLE: Trace Neurological: Yes: Oriented Psychiatric: Yes: Oriented Labs: CBC, BMP 07/10/17 07:00 07/10/17 07:00 INR, PTT INR 1.04 (0.82-1.09) 07/07/17 16:52 Assessment/Plan Current Medications Generic Name Dose Route Start Last Admin Trade Name Dannyq PRN Reason Stop Dose Admin Acetaminophen 650 mg 07/07/17 21:40 Tylenol - PO Q4H PRN BACK PAIN Amlodipine Besylate 10 mg 07/08/17 10:00 07/10/17 09:35 Norvasc - PO 10 mg DAILY [facility] Administration Atorvastatin Calcium 10 mg 07/09/17 22:00 07/09/17 21:32 Lipitor - PO 10 mg HS [facility] Administration Brimonidine Tartrate 1 drop 07/10/17 12:00 07/10/17 13:53 Alphagan P 0.1% - OU 1 drop BID [facility] Administration Docusate Sodium 100 mg 07/08/17 10:00 07/10/17 09:33 Colace - PO 100 mg DAILY [facility] Administration Gabapentin 100 mg 07/09/17 22:00 07/10/17 13:53 Neurontin - PO 100 mg TID [facility] Administration Heparin Sodium (Porcine) 5,000 unit 07/08/17 22:00 07/10/17 13:54 Heparin - SQ 5,000 unit TID [facility] Administration Hydralazine HCl 25 mg 07/08/17 22:00 07/10/17 13:52 Apresoline - PO 25 mg TID [facility] Administration Hydrochlorothiazide 25 mg 07/08/17 10:00 07/10/17 09:34 Hctz - PO 25 mg DAILY [facility] Administration Insulin Aspart 1 vial 07/07/17 22:00 07/10/17 13:13 Novolog Vial Sliding Scale - SQ 4 units ACHS [facility] Administration Protocol Metoprolol Succinate 25 mg 07/09/17 10:00 07/10/17 09:35 Toprol Xl - PO 25 mg DAILY [facility] Administration Non-Formulary Medication 1 drop 07/10/17 14:00 Brinzolamide [Azopt] OU TID [facility] Ofloxacin 1 drop 07/10/17 14:00 07/10/17 13:54 Ocuflox 0.3% Eye Drops - OU 1 drop TID [facility] Administration Polyethylene Glycol 17 gm 07/10/17 10:00 07/10/17 09:34 Miralax (For Daily Use) - PO 17 gm DAILY [facility] Administration Ranitidine HCl 150 mg 07/08/17 10:00 07/10/17 09:36 Zantac - PO 150 mg DAILY [facility] Administration Senna 1 tab 07/08/17 10:00 07/10/17 09:35 Senna - PO 1 tab DAILY [facility] Administration Impression 1. CKD 2. DM 3. cervical spine disease 4. HTN 5. DM 6. obesity 7. anemia 8. DOMINIK 9. HLD 10. CHF Plan - repeat labs in am - renal function has been improving - he did not get the MRI today - should not get any MRI contrast - do not give nsaids - cardio input appreciated - will follow Dr Andrade
[2017-07-10] MEDS ORDERED: INSULIN (NOVOLOG) ASPART 100 UNITS/ML 10ML VIAL ONE ×2 (19:00→21:08)
--- NOTE | 2017-07-10 21:09 | PN ---
Physical Exam: SUBJECTIVE: Patient seen and examined at bedside. Patient has no new complaints , reports no change in current symptoms. continues to feel weakness and numbness b/l OBJECTIVE: Vital Signs Period Temp Pulse Resp BP Sys/Kauffman Pulse Ox Last 24 Hr 87.1 F-98.7 F 60-73 16-20 125-173/72-80 GENERAL: The patient is awake, alert, and fully oriented, in no acute distress. NECK: Trachea midline, full range of motion, supple. LUNGS: Breath sounds equal, clear to auscultation bilaterally, no wheezes, no crackles, no accessory muscle use. HEART: Regular rate and rhythm, S1, S2 without murmur, rub or gallop. ABDOMEN: Soft, nontender, nondistended, normoactive bowel sounds, no guarding, no rebound, no hepatosplenomegaly, no masses. EXTREMITIES: 2+ pulses, warm, well-perfused, no edema. NEUROLOGICAL: Cranial nerves II through X grossly intact. Normal speech, gait not observed. strength 4/5 at ankles, 1/5 at hips, and 4/5 at shoulders, elbows and linen checker strength. reflexes 1+ at knee and shoulder SKIN: Warm, dry, normal turgor, no rashes or lesions noted Laboratory Results - last 24 hr 07/09/17 07/10/17 07/10/17 21:35 05:57 07:00 WBC RBC Hgb Hct MCV MCH MCHC RDW Plt Count MPV Sodium 139 Potassium 4.6 Chloride 104 Carbon Dioxide 23 Anion Gap 12 BUN 62 H Creatinine 4.3 H POC Glucometer 197 174 Random Glucose 174 H D Calcium 9.7 C-Reactive Protein 3.4 H RPR Titer 07/10/17 07/10/17 07/10/17 07:00 07:00 11:29 WBC 7.1 RBC 3.70 L Hgb 9.9 L Hct 30.3 L MCV 82.0 MCH 26.7 MCHC 32.5 RDW 14.4 Plt Count 217 MPV 8.8 Sodium Potassium Chloride Carbon Dioxide Anion Gap BUN Creatinine POC Glucometer 213 Random Glucose Calcium C-Reactive Protein RPR Titer Nonreactive 07/10/17 16:30 WBC RBC Hgb Hct MCV MCH MCHC RDW Plt Count MPV Sodium Potassium Chloride Carbon Dioxide Anion Gap BUN Creatinine POC Glucometer 229 Random Glucose Calcium C-Reactive Protein RPR Titer Active Medications Generic Name Dose Route Start Last Admin Trade Name Dannyq PRN Reason Stop Dose Admin Acetaminophen 650 mg 07/07/17 21:40 Tylenol - PO Q4H PRN BACK PAIN Amlodipine Besylate 10 mg 07/08/17 10:00 07/10/17 09:35 Norvasc - PO 10 mg DAILY [facility] Administration Atorvastatin Calcium 10 mg 07/09/17 22:00 07/09/17 21:32 Lipitor - PO 10 mg HS [facility] Administration Brimonidine Tartrate 1 drop 07/10/17 12:00 07/10/17 13:53 Alphagan P 0.1% - OU 1 drop BID [facility] Administration Docusate Sodium 100 mg 07/08/17 10:00 07/10/17 09:33 Colace - PO 100 mg DAILY [facility] Administration Gabapentin 100 mg 07/09/17 22:00 07/10/17 13:53 Neurontin - PO 100 mg TID [facility] Administration Heparin Sodium (Porcine) 5,000 unit 07/08/17 22:00 07/10/17 13:54 Heparin - SQ 5,000 unit TID [facility] Administration Hydralazine HCl 25 mg 07/08/17 22:00 07/10/17 13:52 Apresoline - PO 25 mg TID [facility] Administration Hydrochlorothiazide 25 mg 07/08/17 10:00 07/10/17 09:34 Hctz - PO 25 mg DAILY [facility] Administration Insulin Aspart 1 vial 07/07/17 22:00 07/10/17 17:54 Novolog Vial Sliding Scale - SQ 4 units ACHS [facility] Administration Protocol Metoprolol Succinate 25 mg 07/09/17 10:00 07/10/17 09:35 Toprol Xl - PO 25 mg DAILY [facility] Administration Non-Formulary Medication 1 drop 07/10/17 14:00 Brinzolamide [Azopt] OU TID [facility] Ofloxacin 1 drop 07/10/17 14:00 07/10/17 13:54 Ocuflox 0.3% Eye Drops - OU 1 drop TID [facility] Administration Polyethylene Glycol 17 gm 07/10/17 10:00 07/10/17 09:34 Miralax (For Daily Use) - PO 17 gm DAILY [facility] Administration Ranitidine HCl 150 mg 07/08/17 10:00 07/10/17 09:36 Zantac - PO 150 mg DAILY [facility] Administration Senna 1 tab 07/08/17 10:00 07/10/17 09:35 Senna - PO 1 tab DAILY [facility] Administration ASSESSMENT/PLAN: This is a 66 year old male with a medical history of TAVR, DM, HTN, CHF, cervical stenosis admitted for increasing bilateral leg weakness and inability to ambulate. #bilateral leg and arm weakness 2/2 cervical compression -Neurosurgery onboard -Neurology onboard -patient's shoulders too large to fit into MRI. Per neurosurgery, patient will have to have a myelogram prior to surgery -plan to have the patient be d/c to SNF while waiting for myelogram and surgery #Bilateral leg numbness likely 2/2 DM -c/w neurontin #acute kidney injury vs CKD -need baseline cr; contacted PCP Dr. Nasreen Mederos ([phone]), awaiting callback -renal bladder US: no abnormalities. Pre void residual 337 -renal consult #DM -tradjenta 95 u daily -ISS -BGM #HTN-controlled -c/w home toprol xl 25 -c/w home hydralazine 25 TID -c/w home HCTZ 25 PO #Hx CAD, TAVR -Holding ASA and plavix for possible surgery #FEN -no fluids indicated -lytes WNL -diabetic sodium controlled diet #Prophy -Heparin SQ 5ku TID -zantac 150 daily #Dispo -admit to med surg -possible d/c to SNF tomorrow Visit type - Emergency Visit Emergency Visit: Yes ED Registration Date: 07/07/17 Care time: The patient presented to the Emergency Department on the above date and was hospitalized for further evaluation of their emergent condition. - New Patient This patient is new to me today: No - Critical Care Critical Care patient: No
[2017-07-10] MEDS: ATORVASTATIN CA 10 MG TABLET (FP) PO SCH (21:13)
--- NOTE | 2017-07-11 06:34 | PN ---
<Jacobo Yeung - Last Filed: 07/11/17 18:55> Physical Exam: SUBJECTIVE: Patient seen and examined at bedside. No new complaints. continues to have b/l weakness w/ contracture on the left. OBJECTIVE: Vital Signs Period Temp Pulse Resp BP Sys/Kauffman Pulse Ox Last 24 Hr 87.1 F-98.6 F 61-73 16-20 125-173/72-75 96 GENERAL: The patient is awake, alert, and fully oriented, in no acute distress. NECK: Trachea midline, full range of motion, supple. LUNGS: Breath sounds equal, clear to auscultation bilaterally, no wheezes, no crackles, no accessory muscle use. HEART: Regular rate and rhythm, S1, S2 without murmur, rub or gallop. ABDOMEN: Soft, nontender, nondistended, normoactive bowel sounds, no guarding, no rebound, no hepatosplenomegaly, no masses. EXTREMITIES: 2+ pulses, warm, well-perfused, no edema. NEUROLOGICAL: Cranial nerves II through X grossly intact. Normal speech, gait not observed. strength 4/5 at ankles, 1/5 at hips, and 4/5 at shoulders, elbows and integration lead strength. reflexes 1+ at knee and shoulder SKIN: Warm, dry, normal turgor, no rashes or lesions noted Laboratory Results - last 24 hr 07/09/17 07/10/17 07/10/17 07:00 07:00 07:00 WBC RBC Hgb Hct MCV MCH MCHC RDW Plt Count MPV Sodium 139 Potassium 4.6 Chloride 104 Carbon Dioxide 23 Anion Gap 12 BUN 62 H Creatinine 4.3 H POC Glucometer Random Glucose 174 H D Calcium 9.7 C-Reactive Protein 3.4 H Total Protein (PEP) 6.9 Albumin (PEP) 3.0 Globulin 3.9 Albumin/Globulin Ratio 0.8 Beta Globulins 1.0 GARETT M-Monroe RPR Titer Nonreactive 07/10/17 07/10/17 07/10/17 07:00 11:29 16:30 WBC 7.1 RBC 3.70 L Hgb 9.9 L Hct 30.3 L MCV 82.0 MCH 26.7 MCHC 32.5 RDW 14.4 Plt Count 217 MPV 8.8 Sodium Potassium Chloride Carbon Dioxide Anion Gap BUN Creatinine POC Glucometer 213 229 Random Glucose Calcium C-Reactive Protein Total Protein (PEP) Albumin (PEP) Globulin Albumin/Globulin Ratio Beta Globulins GARETT M-[place] RPR Titer 07/10/17 21:06 WBC RBC Hgb Hct MCV MCH MCHC RDW Plt Count MPV Sodium Potassium Chloride Carbon Dioxide Anion Gap BUN Creatinine POC Glucometer 263 Random Glucose Calcium C-Reactive Protein Total Protein (PEP) Albumin (PEP) Globulin Albumin/Globulin Ratio Beta Globulins GARETT M-[place] RPR Titer Active Medications Generic Name Dose Route Start Last Admin Trade Name Freq PRN Reason Stop Dose Admin Acetaminophen 650 mg 07/07/17 21:40 Tylenol - PO Q4H PRN BACK PAIN Amlodipine Besylate 10 mg 07/08/17 10:00 07/10/17 09:35 Norvasc - PO 10 mg DAILY ELENA Administration Atorvastatin Calcium 10 mg 07/09/17 22:00 07/10/17 21:13 Lipitor - PO 10 mg HS LEENA Administration Brimonidine Tartrate 1 drop 07/10/17 12:00 07/10/17 21:15 Alphagan P 0.1% - OU 1 drop BID ELENA Administration Docusate Sodium 100 mg 07/08/17 10:00 07/10/17 09:33 Colace - PO 100 mg DAILY ELENA Administration Gabapentin 100 mg 07/09/17 22:00 07/10/17 21:13 Neurontin - PO 100 mg TID ELENA Administration Heparin Sodium (Porcine) 5,000 unit 07/08/17 22:00 07/10/17 21:12 Heparin - SQ 5,000 unit TID ELENA Administration Hydralazine HCl 25 mg 07/08/17 22:00 07/10/17 21:13 Apresoline - PO 25 mg TID ELENA Administration Hydrochlorothiazide 25 mg 07/08/17 10:00 07/10/17 09:34 Hctz - PO 25 mg DAILY ELENA Administration Insulin Aspart 1 vial 07/07/17 22:00 07/10/17 21:12 Novolog Vial Sliding Scale - SQ 6 units ACHS ELENA Administration Protocol Metoprolol Succinate 25 mg 07/09/17 10:00 07/10/17 09:35 Toprol Xl - PO 25 mg DAILY ELENA Administration Non-Formulary Medication 1 drop 07/10/17 14:00 Brinzolamide [Azopt] OU TID ELENA Ofloxacin 1 drop 07/10/17 14:00 07/10/17 21:14 Ocuflox 0.3% Eye Drops - OU 1 drop TID ELENA Administration Polyethylene Glycol 17 gm 07/10/17 10:00 07/10/17 09:34 Miralax (For Daily Use) - PO 17 gm DAILY ELENA Administration Ranitidine HCl 150 mg 07/08/17 10:00 07/10/17 09:36 Zantac - PO 150 mg DAILY ELENA Administration Senna 1 tab 07/08/17 10:00 07/10/17 09:35 Senna - PO 1 tab DAILY ELENA Administration ASSESSMENT/PLAN: This is a 66 year old male with a medical history of TAVR, DM, HTN, CHF, cervical stenosis admitted for increasing bilateral leg weakness and inability to ambulate. #bilateral leg and arm weakness 2/2 cervical compression -Neurosurgery onboard -Neurology onboard -Patient cannot have myelogram until thursday 05/18 to recent plavix use. -current plan is to have the patient d/c to short term rehab and come back for myelogram as outpatient, then return to await surgery #Bilateral leg numbness likely 2/2 DM -c/w neurontin #acute kidney injury vs CKD -need baseline cr; contacted PCP Dr. Nasreen Mederos ([phone]), awaiting callback -renal bladder US: no abnormalities. Pre void residual 337 -renal consult #DM -ISS -BGM #HTN-controlled -c/w home toprol xl 25 -c/w home hydralazine 25 TID -c/w home HCTZ 25 PO #Hx CAD, TAVR -Holding ASA and plavix #FEN -no fluids indicated -lytes WNL -diabetic sodium controlled diet #Prophy -Heparin SQ 5ku TID -zantac 150 daily #Dispo -admit to med surg -possible d/c to SNF tomorrow Visit type - Emergency Visit Emergency Visit: Yes ED Registration Date: 07/07/17 Care time: The patient presented to the Emergency Department on the above date and was hospitalized for further evaluation of their emergent condition. - New Patient This patient is new to me today: No - Critical Care Critical Care patient: No <Kristy Gatica - Last Filed: 07/11/17 19:43> Physical Exam: Patient seen and examined. Discussed with Dr. Holbrook and . Patient needs Myelogram , plavix and aspirin needs to be held for total of 7 days. Sunday will be 7 days. Afterward [patient will benefit from rehab. and will schedule the surgery on July 24, 2017. Vital Signs Temperature 97.9 F 07/11/17 16:30 Pulse Rate 61 07/11/17 16:30 Respiratory Rate 18 07/11/17 16:30 Blood Pressure 146/66 07/11/17 16:30 O2 Sat by Pulse Oximetry (%) 96 07/11/17 09:00 CBCD WBC 7.7 K/mm3 (4.0-10.0) 07/11/17 10:24 RBC 3.69 M/mm3 (4.00-5.60) L 07/11/17 10:24 Hgb 9.8 GM/dL (11.7-16.9) L 07/11/17 10:24 Hct 30.3 % (35.4-49) L 07/11/17 10:24 MCV 82.1 fl (80-96) 07/11/17 10:24 MCHC 32.4 g/dl (32.0-35.9) 07/11/17 10:24 RDW 14.6 % (11.9-15.9) 07/11/17 10:24 Plt Count 214 K/MM3 (134-434) 07/11/17 10:24 MPV 8.8 fl (7.5-11.1) 07/11/17 10:24 CMP Sodium 136 mmol/L (136-145) 07/11/17 10:24 Potassium 4.6 mmol/L (3.5-5.1) 07/11/17 10:24 Chloride 103 mmol/L (98-107) 07/11/17 10:24 Carbon Dioxide 24 mmol/L (21-32) 07/11/17 10:24 Anion Gap 9 (8-16) 07/11/17 10:24 BUN 60 mg/dL (7-18) H 07/11/17 10:24 Creatinine 4.5 mg/dL (0.7-1.3) H 07/11/17 10:24 Creat Clearance w eGFR 13.10 (>60) 07/11/17 10:24 Random Glucose 220 mg/dL (74-106) H D 07/11/17 10:24 Calcium 9.1 mg/dL (8.5-10.1) 07/11/17 10:24 Total Bilirubin 0.1 mg/dL (0.2-1.0) L D 07/11/17 10:24 AST 15 U/L (15-37) 07/11/17 10:24 ALT 22 U/L (12-78) 07/11/17 10:24 Alkaline Phosphatase 117 U/L (45-117) 07/11/17 10:24 Total Protein 6.7 g/dl (6.4-8.2) 07/11/17 10:24 Albumin 2.9 g/dl (3.4-5.0) L 07/11/17 10:24 CARDIAC ENZYMES Creatine Kinase Cancelled 07/07/17 16:52 Troponin I 0.03 ng/ml (0.00-0.05) 07/07/17 17:55 Current Medications Generic Name Dose Route Start Last Admin Trade Name Car PRN Reason Stop Dose Admin Acetaminophen 650 mg 07/07/17 21:40 Tylenol - PO Q4H PRN BACK PAIN Amlodipine Besylate 10 mg 07/08/17 10:00 07/11/17 10:11 Norvasc - PO 10 mg DAILY ELENA Administration Atorvastatin Calcium 10 mg 07/09/17 22:00 07/10/17 21:13 Lipitor - PO 10 mg HS ELENA Administration Brimonidine Tartrate 1 drop 07/10/17 12:00 07/11/17 10:10 Alphagan P 0.1% - OU 1 drop BID ELENA Administration Docusate Sodium 100 mg 07/08/17 10:00 07/11/17 10:11 Colace - PO 100 mg DAILY ELENA Administration Gabapentin 100 mg 07/09/17 22:00 07/11/17 14:34 Neurontin - PO 100 mg TID ELENA Administration Hydralazine HCl 25 mg 07/08/17 22:00 07/11/17 14:34 Apresoline - PO 25 mg TID ELENA Administration Hydrochlorothiazide 25 mg 07/08/17 10:00 07/11/17 10:11 Hctz - PO 25 mg DAILY ELENA Administration Insulin Aspart 1 vial 07/07/17 22:00 07/11/17 17:49 Novolog Vial Sliding Scale - SQ 6 units ACHS ELENA Administration Protocol Metoprolol Succinate 25 mg 07/09/17 10:00 07/11/17 10:12 Toprol Xl - PO 25 mg DAILY ELENA Administration Non-Formulary Medication 1 drop 07/10/17 14:00 Brinzolamide [Azopt] OU TID ELENA Ofloxacin 1 drop 07/10/17 14:00 07/11/17 13:19 Ocuflox 0.3% Eye Drops - OU 1 drop TID ELENA Administration Polyethylene Glycol 17 gm 07/10/17 10:00 07/11/17 10:11 Miralax (For Daily Use) - PO 17 gm DAILY [facility] Administration Ranitidine HCl 150 mg 07/08/17 10:00 07/11/17 10:12 Zantac - PO 150 mg DAILY ELENA Administration Senna 1 tab 07/08/17 10:00 07/11/17 10:11 Senna - PO 1 tab DAILY [facility] Administration Home Medications Medication Instructions Recorded Amlodipine Besylate 10 mg PO DAILY 07/08/17 Aspirin [Aspirin EC] 81 mg PO DAILY 07/08/17 Cholecalciferol (Vitamin D3) 2,000 unit PO DAILY 07/08/17 [Vitamin D] Clopidogrel Bisulfate [Clopidogrel] 75 mg PO DAILY 07/08/17 Docusate Sodium 100 mg PO DAILY 07/08/17 Gabapentin 100 mg PO TID 07/08/17 Hydralazine HCl 75 mg PO TID 07/08/17 Hydrochlorothiazide 25 mg PO DAILY 07/08/17 Metoprolol Tartrate 25 mg PO BID 07/08/17 Ranitidine [Zantac -] 150 mg PO DAILY 07/08/17 Sennosides [Senna] 8.6 mg PO DAILY 07/08/17 Simvastatin 20 mg PO DAILY 07/08/17 Insulin (Levemir) [Levemir Vial] 95 unit SQ DAILY 07/09/17 Insulin (Novolog) [Novolog] 35 units SQ Q3H5XD 07/09/17 Brimonidine Tartrate [Alphagan P 1 drop OU BID 07/10/17 0.1% -] Brinzolamide [Azopt] 1 drop OU TID 07/10/17 Ofloxacin 0.3% Ophth Soln [Ocuflox 1 drop OU TID 07/10/17 0.3% Eye Drops -]
[2017-07-11] MEDS: INSULIN SLIDING SCALE (NOVOLOG) 1 VIAL SQ SCH ×4 (07:01→21:41)
[2017-07-11] MEDS: GABAPENTIN 100 MG CAPSULE (FP) PO SCH ×3 (07:01→21:41)
[2017-07-11] MEDS: hydrALAZINE HCL 25 MG TABLET (FP) PO SCH ×3 (07:02→21:41)
[2017-07-11] MEDS: HEPARIN NA (PORCINE) 5,000 UNITS/ML 1ML VIAL SQ SCH (07:02)
[2017-07-11] MEDS: OFLOXACIN 0.3% OPHTHALMIC SOLUTION 5 ML BOTTLE OU SCH ×3 (07:03→21:45)
[2017-07-11 09:05] LABS: ANION GAP 13 (8-16); BLOOD UREA NITROGEN 63 mg/dL (7-18); CALCIUM 9.1 mg/dL (8.5-10.1); CHLORIDE 104 mmol/L (98-107); CO2 20 mmol/L (21-32); CREATININE 4.5 mg/dL (0.7-1.3); GLUCOSE,RANDOM 173 mg/dL (74-106); MAGNESIUM 2.5 mg/dL (1.8-2.4); PHOSPHOROUS 5.4 mg/dL (2.5-4.9); POTASSIUM 4.8 mmol/L (3.5-5.1); SGOT/AST 18 U/L (15-37); SGPT/ALT 25 U/L (12-78); SODIUM 137 mmol/L (136-145)
[2017-07-11 09:08] LABS: ALK PHOS 118 U/L (45-117); BILIRUBIN,TOTAL 0.4 mg/dL (0.2-1.0); TOT PROT 6.8 g/dl (6.4-8.2)
[2017-07-11] MEDS ORDERED: PT OWN MED DRAWER 7, Y5N ONE (09:52)
--- NOTE | 2017-07-11 09:58 | PN ---
Progress Note (short form) - Note Progress Note: continues to states difficulty moving legs >arms, feels numbness in arms worse refusing epidural or LP CT reviewed unable to fit in MRI , will get myelogram (verify if needs contrast as elevated creatinine) ESR 99, +[facility] records reviewed as he appears to have non-ambulatory status since 2014 as per ORTHO 2018 CT LS spine ; IMPRESSION: Evaluation is moderately limited due to artifact as a result of body habitus. Moderate bilateral L4-L5 and L5-S1 degenerative facet arthropathy. Moderate to marked L4-5 and moderate L3-L4 central canal stenosis. A small focus of increased density seen within the left L5 lateral recess which may be on the basis of normal variation versus representing an extruded disc fragment. Correlate clinically. If there is ongoing symptomatology MRI evaluation is suggested. [facility] NEUROLOGY EXAM and EMG IN 2013 Neurological Exam Mental Status AWake, alert and oriented to time,placer and person. Communicates well. Cranial Nerves VFF, EOMI, Face symmetric, and sensation is normal. ~Tongue midline with no fasciulation or atrophy. ~Decreased hearing on the right side. Motor Exam B?L deltoid 4+, B/L Bi 4+, Tri Left 4-, Right 4+, Wrist ext Left 4, Right 4+, Finger flexors Left 4-, right 4+. B/L IP 1, Quads: 2, Hamstrin ~DF left 4+, right 4-, PF 5/5 Clonus of each muscle noted on manual motor testing. Increased tone in the lower extremities. Mild distal quadriceps atrophy bilaterally. Otherwise no atrophy. Reflex Exam Absent reflexes- Palntars - mute Coordination FNF- nl. No tremors. Gait Wheelchair bound- unable to stand Sensory Exam B/L Absent LT/PP upto midshin level bilaterally. B/L Absent Vib sensation toes,ankles. imapired at knees and fingertips. b/L JPS severely impaired in the big toes and ankles. Less impaired at the fingers (worse ont he right side). Medical Exam No acute distress, pulses present, no edema. Morbid obesity. Electrophysiologic Findings:~ Limb temperature was monitored continuously during nerve conduction studies, maintaining hand temperature between 32 and 36 degrees celsius, and foot temperature between 30 and 36 degrees celsius Nerve conduction studies were performed in the right lower and left upper extremity. Right sural sensory response was absent. Left radial sensory response showed prolonged latency, borderline normal amplitude and slowed conduction velocity. Left median motor response showed prolonged distal motor latency, normal amplitude and slowed conduction velocity across the forearm. The amplitude drop in proximal stimulations was due to technical limitations due to the large mass of soft tissue in the proximal sections of the arm. Therefore, even the slowing of the conduction velocity may not be valid. Left ulnar motor response showed normal distal motor latency, reduced amplitude and slowed conduction velocity across the forearm with partial conduction block. Right peroneal and tibial motor responses showed significantly reduced amplitudes. The distal motor latency was normal for peroneal nerve and was prolonged for the tibial nerve. The motor conduction velocity of the peroneal nerve was slowed. Right peroneal and left median and ulnar F-wave latencies were prolonged. Needle EMG studies were performed on the left lower extremity (TA and VL) muscles. There was no evidence of neurogenic or myopathic changes. 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 ~The neuropathy was predominately axonal in physiology, but there were demyelinating features as well. The neuropathy was associated with severe sensorimotor axon loss that was worse distally in the feet. ~There was partial conduction block of the ulnar nerve in the forearm segment on the left, as well as probable median nerve entrapment at the left wrist (the right was not studied). ~Based on the patients prior HbA1C levels suggesting poorly controlled diabetes, the neuropathy was most likely due to diabetes. ~There was no evidence of myopathy. ~Neurologic examination suggested there was a significant component of myelopathy contributing to his functional impairment, with spasticity and a long tract pattern of weakness. Consider screening work-up to rule out other causes of neuropathy. ~In addition , the patient would benefit from more structured PT/OT and gait training, as he reported some ambulation previously with proper KFOs. Vital Signs Temperature 97.5 F L 07/11/17 07:19 Pulse Rate 65 07/11/17 07:19 Respiratory Rate 20 07/11/17 07:19 Blood Pressure 147/72 07/11/17 07:19 O2 Sat by Pulse Oximetry (%) 96 07/10/17 21:00 CBCD WBC 6.7 K/mm3 (4.0-10.0) 07/09/17 07:00 RBC 3.71 M/mm3 (4.00-5.60) L 07/09/17 07:00 Hgb 9.9 GM/dL (11.7-16.9) L 07/09/17 07:00 Hct 30.4 % (35.4-49) L 07/09/17 07:00 MCV 81.9 fl (80-96) 07/09/17 07:00 MCHC 32.6 g/dl (32.0-35.9) 07/09/17 07:00 RDW 14.8 % (11.9-15.9) 07/09/17 07:00 Plt Count 241 K/MM3 (134-434) 07/09/17 07:00 MPV 8.8 fl (7.5-11.1) 07/09/17 07:00 CMP Sodium 138 mmol/L (136-145) 07/09/17 07:00 Potassium 4.6 mmol/L (3.5-5.1) 07/09/17 07:00 Chloride 106 mmol/L (98-107) 07/09/17 07:00 Carbon Dioxide 25 mmol/L (21-32) 07/09/17 07:00 Anion Gap 7 (8-16) L 07/09/17 07:00 BUN 55 mg/dL (7-18) H 07/09/17 07:00 Creatinine 4.4 mg/dL (0.7-1.3) H 07/09/17 07:00 Creat Clearance w eGFR 12.46 (>60) 07/07/17 17:55 Calcium 9.3 mg/dL (8.5-10.1) 07/09/17 07:00 Total Bilirubin 0.2 mg/dL (0.2-1.0) 07/07/17 17:55 AST 14 U/L (15-37) L 07/07/17 17:55 ALT 18 U/L (12-78) 07/07/17 17:55 Alkaline Phosphatase 113 U/L (45-117) 07/07/17 17:55 Total Protein 7.2 g/dl (6.4-8.2) 07/07/17 17:55 Albumin 3.2 g/dl (3.4-5.0) L 07/07/17 17:55 66 year old male, poor historian, medical history if CHF, HTN, DM, TAVR, cervical stenosis prior surgery in [address] [place] [address] , with progressive gait disability x one month, Residual weakness and has been using wheelchair for years after his spine surgery; suspect progressive cervical myelopathy, with weakness in 4 limbs long tract pattern superimposed progressive neuropathy given stocking and glove presentation based on prior records he has hx of a severe neuropathy, DM/CKD this maybe coming worse , though doubt this is CIDP work up +M SPIKE , ESR ? HEM consult , skeletal survey outpt OPEN MRI if possible speak to NS to see if can even get myelogram --given poor baseline status not sure if surgery will change his already poor functional baseline, though there does appear to be some neurological deterioration of his exam compared to few yrs back he is refusing LS epidural rehab planning Dr Angulo Problem List - Problems (1) Cervical myelopathy Code(s): G95.9 - DISEASE OF SPINAL CORD, UNSPECIFIED (2) Lumbosacral spondylosis Code(s): M47.817 - SPONDYLS W/O MYELOPATHY OR RADICULOPATHY, LUMBOSACR REGION (3) Lumbosacral spondylosis Code(s): M47.817 - SPONDYLS W/O MYELOPATHY OR RADICULOPATHY, LUMBOSACR REGION (4) Diabetes Code(s): E11.9 - TYPE 2 DIABETES MELLITUS WITHOUT COMPLICATIONS (5) HTN (hypertension) Code(s): I10 - ESSENTIAL (PRIMARY) HYPERTENSION
[2017-07-11] MEDS: BRIMONIDINE TARTRATE 0.1% OPHTHALMIC 5 ML BOTTLE OU SCH ×2 (10:10→21:40)
[2017-07-11] MEDS: HYDROCHLOROTHIAZIDE 25 MG TABLET (FP) PO SCH (10:11)
[2017-07-11] MEDS: SENNOSIDES 8.6MG TABLET (FP) PO SCH (10:11)
[2017-07-11] MEDS: DOCUSATE SODIUM 100 MG CAPSULE (FP) PO SCH (10:11)
[2017-07-11] MEDS: POLYETHYLENE GLYCOL 3350 119 GM BTL PO SCH (10:11)
[2017-07-11] MEDS: amLODIPine BESYLATE 10 MG TABLET (FP) PO SCH (10:11)
[2017-07-11] MEDS: RANITIDINE HCL 150 MG TABLET (FP) PO SCH (10:12)
[2017-07-11] MEDS: metoPROLOL SUCCINATE 25 MG TAB.SR.24H (FP) PO SCH (10:12)
[2017-07-11 10:53] LABS: HEMATOCRIT 30.3 % (35.4-49); HEMOGLOBIN 9.8 GM/dL (11.7-16.9); MCH 26.6 pg (25.7-33.7); MCHC 32.4 g/dl (32.0-35.9); MEAN CELL VOLUME 82.1 fl (80-96); MEAN PLT VOLUME 8.8 fl (7.5-11.1); PLATELET COUNT 214 K/MM3 (134-434); RBC 3.69 M/mm3 (4.00-5.60); RDW 14.6 % (11.9-15.9); WHITE BLOOD COUNT 7.7 K/mm3 (4.0-10.0)
[2017-07-11 11:05] LABS: ALBUMIN 2.9 g/dl (3.4-5.0); ANION GAP 9 (8-16); BILIRUBIN,TOTAL 0.1 mg/dL (0.2-1.0); BLOOD UREA NITROGEN 60 mg/dL (7-18); CALCIUM 9.1 mg/dL (8.5-10.1); CHLORIDE 103 mmol/L (98-107); CO2 24 mmol/L (21-32); CREATININE 4.5 mg/dL (0.7-1.3); GLUCOSE,RANDOM 220 mg/dL (74-106); POTASSIUM 4.6 mmol/L (3.5-5.1); SGOT/AST 15 U/L (15-37); SGPT/ALT 22 U/L (12-78); SODIUM 136 mmol/L (136-145); TOT PROT 6.7 g/dl (6.4-8.2)
[2017-07-11 11:06] LABS: ALK PHOS 117 U/L (45-117)
[2017-07-11 11:07] LABS: INR 1.03 (0.82-1.09); PROTHROMBIN TIME (PATIENT) 11.6 SEC (9.98-11.88)
[2017-07-11 11:10] LABS: ACTIVATED PTT 27.6 SECONDS (26.9-34.4)
--- NOTE | 2017-07-11 12:26 | CON.GU ---
Consult Consult Specialty:: Referred by:: Nany - History of Present Illness Chief Complaint: back pain History of Present Illness: 66 yo m w hx HTN, CHF, DM, TAVR, cervical stenosis, morbid obesity adm 07/07/17 w back pain requiring MRI eval however due to the presence of a penile prosthesis cons was req. 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 No: AFIB Pulmonary: Yes: COPD, Sleep Apnea Gastrointestinal: No: Ascites Hepatobiliary: No: Cirrhosis Renal/: Yes: Renal Inusuff Psych: No: Addictions Musculoskeletal: Yes: Chronic low back pain, Paraplegia Rheumatology: No: Fibromyalgia ENT: No: Allergic Rhinitis Endocrine: Yes: Diabetes Mellitus - Past Surgical History Additional Surgical History: previous cervical surgery/TAVR - Alcohol/Substance Use Hx Alcohol Use: No - Smoking History Smoking history: Former smoker Have you smoked in the past 12 months: No - Social History History of Recent Travel: No Home Medications - Allergies Allergies/Adverse Reactions: Allergies Allergy/AdvReac Type Severity Reaction Status Date / Time furosemide [From Lasix] Allergy Verified 07/07/17 15:34 latex Allergy Verified 07/07/17 15:34 - Home Medications Home Medications: Ambulatory Orders Amlodipine Besylate 10 mg PO DAILY 07/08/17 Aspirin [Aspirin EC] 81 mg PO DAILY 07/08/17 Cholecalciferol (Vitamin D3) [Vitamin D] 2,000 unit PO DAILY 07/08/17 Clopidogrel Bisulfate [Clopidogrel] 75 mg PO DAILY 07/08/17 Docusate Sodium 100 mg PO DAILY 07/08/17 Gabapentin 100 mg PO TID 07/08/17 Hydralazine HCl 75 mg PO TID 07/08/17 Hydrochlorothiazide 25 mg PO DAILY 07/08/17 Metoprolol Tartrate 25 mg PO BID 07/08/17 Ranitidine [Zantac -] 150 mg PO DAILY 07/08/17 Sennosides [Senna] 8.6 mg PO DAILY 07/08/17 Simvastatin 20 mg PO DAILY 07/08/17 Insulin (Levemir) [Levemir Vial] 95 unit SQ DAILY 07/09/17 Insulin (Novolog) [Novolog] 35 units SQ Q3H5XD 07/09/17 Brimonidine Tartrate [Alphagan P 0.1% -] 1 drop OU BID 07/10/17 Brinzolamide [Azopt] 1 drop OU TID 07/10/17 Ofloxacin 0.3% Ophth Soln [Ocuflox 0.3% Eye Drops -] 1 drop OU TID 07/10/17 Physical Exam- Vital Signs: Vital Signs Temperature 97.5 F L 07/11/17 07:19 Pulse Rate 65 07/11/17 07:19 Respiratory Rate 20 07/11/17 07:19 Blood Pressure 147/72 07/11/17 07:19 O2 Sat by Pulse Oximetry (%) 96 07/10/17 21:00 Renal/: Yes: Other (inflattable penile prosthesis) Labs: CBC, BMP 07/11/17 10:24 07/11/17 10:24 Problem List - Problems (1) Disorder of implanted penile prosthesis Code(s): T83.9XXA - UNSP COMPLICATION OF GENITOURINARY PROSTH DEV/GRFT, INIT Assessment/Plan Imp: s/p penile prosthesis, cervical stenosis Rec: No contraindication for MRI because of penile prosthesis.
[2017-07-11] MEDS ORDERED: INSULIN (NOVOLOG) ASPART 100 UNITS/ML 10ML VIAL ONE (13:10)
--- NOTE | 2017-07-11 13:37 | PN ---
Progress Note, Physician History of Present Illness: Pt seen and examined at bedside. He is awake and alert. He denies shortness of breath. He denies dysuria. - Current Medication List Current Medications: Active Medications Acetaminophen (Tylenol -) 650 mg PO Q4H PRN PRN Reason: BACK PAIN Amlodipine Besylate (Norvasc -) 10 mg PO DAILY [facility] Last Admin: 07/11/17 10:11 Dose: 10 mg Atorvastatin Calcium (Lipitor -) 10 mg PO HS [facility] Last Admin: 07/10/17 21:13 Dose: 10 mg Brimonidine Tartrate (Alphagan P 0.1% -) 1 drop OU BID [facility] Last Admin: 07/11/17 10:10 Dose: 1 drop Docusate Sodium (Colace -) 100 mg PO DAILY [facility] Last Admin: 07/11/17 10:11 Dose: 100 mg Gabapentin (Neurontin -) 100 mg PO TID [facility] Last Admin: 07/11/17 07:01 Dose: 100 mg Hydralazine HCl (Apresoline -) 25 mg PO TID [facility] Last Admin: 07/11/17 07:02 Dose: 25 mg Hydrochlorothiazide (Hctz -) 25 mg PO DAILY [facility] Last Admin: 07/11/17 10:11 Dose: 25 mg Insulin Aspart (Novolog Vial Sliding Scale -) 1 vial SQ ACHS [facility] PRN Reason: Protocol Last Admin: 07/11/17 13:17 Dose: 4 units Metoprolol Succinate (Toprol Xl -) 25 mg PO DAILY [facility] Last Admin: 07/11/17 10:12 Dose: 25 mg Non-Formulary Medication (Brinzolamide [Azopt]) 1 drop OU TID [facility] Ofloxacin (Ocuflox 0.3% Eye Drops -) 1 drop OU TID [facility] Last Admin: 07/11/17 13:19 Dose: 1 drop Polyethylene Glycol (Miralax (For Daily Use) -) 17 gm PO DAILY [facility] Last Admin: 07/11/17 10:11 Dose: 17 gm Ranitidine HCl (Zantac -) 150 mg PO DAILY [facility] Last Admin: 07/11/17 10:12 Dose: 150 mg Senna (Senna -) 1 tab PO DAILY [facility] Last Admin: 07/11/17 10:11 Dose: 1 tab - Objective Vital Signs: Vital Signs Temperature 97.5 F L 07/11/17 07:19 Pulse Rate 65 07/11/17 07:19 Respiratory Rate 20 07/11/17 07:19 Blood Pressure 147/72 07/11/17 07:19 O2 Sat by Pulse Oximetry (%) 96 07/10/17 21:00 Constitutional: Yes: Calm Eyes: Yes: Conjunctiva Clear HENT: Yes: Atraumatic Cardiovascular: Yes: S1, S2 Respiratory: Yes: CTA Bilaterally Gastrointestinal: Yes: Soft, Abdomen, Obese Musculoskeletal: Yes: Muscle Weakness Edema: Yes Neurological: Yes: Oriented Psychiatric: Yes: Oriented Labs: CBC, BMP 07/11/17 10:24 07/11/17 10:24 INR, PTT INR 1.03 (0.82-1.09) 07/11/17 10:24 Assessment/Plan Current Medications Generic Name Dose Route Start Last Admin Trade Name Freq PRN Reason Stop Dose Admin Acetaminophen 650 mg 07/07/17 21:40 Tylenol - PO Q4H PRN BACK PAIN Amlodipine Besylate 10 mg 07/08/17 10:00 07/11/17 10:11 Norvasc - PO 10 mg DAILY [facility] Administration Atorvastatin Calcium 10 mg 07/09/17 22:00 07/10/17 21:13 Lipitor - PO 10 mg HS [facility] Administration Brimonidine Tartrate 1 drop 07/10/17 12:00 07/11/17 10:10 Alphagan P 0.1% - OU 1 drop BID [facility] Administration Docusate Sodium 100 mg 07/08/17 10:00 07/11/17 10:11 Colace - PO 100 mg DAILY [facility] Administration Gabapentin 100 mg 07/09/17 22:00 07/11/17 07:01 Neurontin - PO 100 mg TID [facility] Administration Hydralazine HCl 25 mg 07/08/17 22:00 07/11/17 07:02 Apresoline - PO 25 mg TID [facility] Administration Hydrochlorothiazide 25 mg 07/08/17 10:00 07/11/17 10:11 Hctz - PO 25 mg DAILY [facility] Administration Insulin Aspart 1 vial 07/07/17 22:00 07/11/17 13:17 Novolog Vial Sliding Scale - SQ 4 units ACHS [facility] Administration Protocol Metoprolol Succinate 25 mg 07/09/17 10:00 07/11/17 10:12 Toprol Xl - PO 25 mg DAILY [facility] Administration Non-Formulary Medication 1 drop 07/10/17 14:00 Brinzolamide [Azopt] OU TID [facility] Ofloxacin 1 drop 07/10/17 14:00 07/11/17 13:19 Ocuflox 0.3% Eye Drops - OU 1 drop TID [facility] Administration Polyethylene Glycol 17 gm 07/10/17 10:00 07/11/17 10:11 Miralax (For Daily Use) - PO 17 gm DAILY [facility] Administration Ranitidine HCl 150 mg 07/08/17 10:00 07/11/17 10:12 Zantac - PO 150 mg DAILY [facility] Administration Senna 1 tab 07/08/17 10:00 07/11/17 10:11 Senna - PO 1 tab DAILY [facility] Administration Impression 1. CKD 2. DM 3. cervical spine disease 4. HTN 5. CHF 6. obesity 7. anemia 8. DOMINIK 9. 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
--- NOTE | 2017-07-11 17:23 | PN ---
Progress Note, Physician History of Present Illness: pulmonary alert,-resp distress,-sob. +pain,numbness,weakness - Current Medication List Current Medications: Active Medications Acetaminophen (Tylenol -) 650 mg PO Q4H PRN PRN Reason: BACK PAIN Amlodipine Besylate (Norvasc -) 10 mg PO DAILY [facility] Last Admin: 07/11/17 10:11 Dose: 10 mg Atorvastatin Calcium (Lipitor -) 10 mg PO HS [facility] Last Admin: 07/10/17 21:13 Dose: 10 mg Brimonidine Tartrate (Alphagan P 0.1% -) 1 drop OU BID [facility] Last Admin: 07/11/17 10:10 Dose: 1 drop Docusate Sodium (Colace -) 100 mg PO DAILY [facility] Last Admin: 07/11/17 10:11 Dose: 100 mg Gabapentin (Neurontin -) 100 mg PO TID [facility] Last Admin: 07/11/17 14:34 Dose: 100 mg Hydralazine HCl (Apresoline -) 25 mg PO TID [facility] Last Admin: 07/11/17 14:34 Dose: 25 mg Hydrochlorothiazide (Hctz -) 25 mg PO DAILY [facility] Last Admin: 07/11/17 10:11 Dose: 25 mg Insulin Aspart (Novolog Vial Sliding Scale -) 1 vial SQ ACHS [facility] PRN Reason: Protocol Last Admin: 07/11/17 13:17 Dose: 4 units Metoprolol Succinate (Toprol Xl -) 25 mg PO DAILY [facility] Last Admin: 07/11/17 10:12 Dose: 25 mg Non-Formulary Medication (Brinzolamide [Azopt]) 1 drop OU TID [facility] Ofloxacin (Ocuflox 0.3% Eye Drops -) 1 drop OU TID [facility] Last Admin: 07/11/17 13:19 Dose: 1 drop Polyethylene Glycol (Miralax (For Daily Use) -) 17 gm PO DAILY [facility] Last Admin: 07/11/17 10:11 Dose: 17 gm Ranitidine HCl (Zantac -) 150 mg PO DAILY [facility] Last Admin: 07/11/17 10:12 Dose: 150 mg Senna (Senna -) 1 tab PO DAILY [facility] Last Admin: 07/11/17 10:11 Dose: 1 tab - Objective Vital Signs: Vital Signs Temperature 98.8 F 07/11/17 15:26 Pulse Rate 64 07/11/17 15:26 Respiratory Rate 18 07/11/17 15:26 Blood Pressure 162/73 07/11/17 15:26 O2 Sat by Pulse Oximetry (%) 96 07/11/17 09:00 Constitutional: Yes: Well Nourished, Calm, Obese Eyes: Yes: WNL HENT: Yes: WNL Neck: Yes: WNL Cardiovascular: Yes: Regular Rate and Rhythm, S1, S2 Respiratory: Yes: CTA Bilaterally Gastrointestinal: Yes: Normal Bowel Sounds, Soft Extremities: Yes: WNL Edema: No Labs: CBC, BMP 07/11/17 10:24 07/11/17 10:24 INR, PTT INR 1.03 (0.82-1.09) 07/11/17 10:24 Assessment/Plan Problem List - Problems (1) CHF (congestive heart failure) Code(s): I50.9 - HEART FAILURE, UNSPECIFIED (2) DOMINIK (obstructive sleep apnea) Code(s): G47.33 - OBSTRUCTIVE SLEEP APNEA (ADULT) (PEDIATRIC) (3) Diabetes Code(s): E11.9 - TYPE 2 DIABETES MELLITUS WITHOUT COMPLICATIONS (4) Back pain Code(s): M54.9 - DORSALGIA, UNSPECIFIED (5) HTN (hypertension) Code(s): I10 - ESSENTIAL (PRIMARY) HYPERTENSION (6) S/P TAVR (transcatheter aortic valve replacement) Code(s): Z95.2 - PRESENCE OF PROSTHETIC HEART VALVE Assessment/Plan Neuro workup ongoing CPAP QHS O2 BD TX PRN No clear Pulmonary contraindication for OR/anesthesia (once we determine which procedure is planned) NIPPV post op Dr Raphael
--- NOTE | 2017-07-11 18:03 | PN ---
Progress Note (short form) - Note Progress Note: Patient unable to have CT Myelogram until Sunday per Dr. Valdes. Will review and finalize plans for treatment. Tentative plans are for surgery on Sunday, July 24, 2017. Agree with plans for rehabilitation at [facility] while awaiting CT-Myelogram and surgery Course of care and surgical potential discussed again with patient who agrees.
[2017-07-11] MEDS: ATORVASTATIN CA 10 MG TABLET (FP) PO SCH (21:41)
[2017-07-11] MEDS ORDERED: Insulin (LOG) Aspart 100 UNITS/ML VIAL SQ ONE (22:30)
[2017-07-12] MEDS: OFLOXACIN 0.3% OPHTHALMIC SOLUTION 5 ML BOTTLE OU SCH ×2 (06:05→14:38)
[2017-07-12] MEDS: GABAPENTIN 100 MG CAPSULE (FP) PO SCH (06:05)
[2017-07-12] MEDS: hydrALAZINE HCL 25 MG TABLET (FP) PO SCH ×2 (06:05→14:37)
[2017-07-12] MEDS: INSULIN SLIDING SCALE (NOVOLOG) 1 VIAL SQ SCH ×2 (06:06→14:25)
[2017-07-12] MEDS: LORazepam 2 MG/ML SDV VIAL IVPUSH ONE (08:14)
[2017-07-12] MEDS ORDERED: POLYETHYLENE GLYCOL 3350 119 GM BTL PO SCH (10:00)
[2017-07-12] MEDS: DOCUSATE SODIUM 100 MG CAPSULE (FP) PO SCH (10:19)
[2017-07-12] MEDS: RANITIDINE HCL 150 MG TABLET (FP) PO SCH (10:19)
[2017-07-12] MEDS: HYDROCHLOROTHIAZIDE 25 MG TABLET (FP) PO SCH (10:19)
[2017-07-12] MEDS: amLODIPine BESYLATE 10 MG TABLET (FP) PO SCH (10:20)
[2017-07-12] MEDS: SENNOSIDES 8.6MG TABLET (FP) PO SCH (10:20)
[2017-07-12] MEDS: metoPROLOL SUCCINATE 25 MG TAB.SR.24H (FP) PO SCH (10:20)
[2017-07-12] MEDS: BRIMONIDINE TARTRATE 0.1% OPHTHALMIC 5 ML BOTTLE OU SCH (10:22)
--- NOTE | 2017-07-12 11:01 | PN ---
Progress Note (short form) - Note Progress Note: Resting in NAD. No CP or SOB. No acute events overnight. No change in pain/numbness/weakness. Intake & Output 07/09/17 07/10/17 07/11/17 07/12/17 23:59 23:59 23:59 23:59 Intake Total 200 250 400 Balance 200 250 400 Last Vital Signs Temp Pulse Resp BP Pulse Ox 98.3 F 109 H 20 144/64 96 07/12/17 06:20 07/12/17 06:20 07/12/17 06:20 07/12/17 06:20 07/11/17 21:00 Active Medications Acetaminophen (Tylenol -) 650 mg PO Q4H PRN PRN Reason: BACK PAIN Amlodipine Besylate (Norvasc -) 10 mg PO DAILY [facility] Last Admin: 07/12/17 10:20 Dose: 10 mg Atorvastatin Calcium (Lipitor -) 10 mg PO HS [facility] Last Admin: 07/11/17 21:41 Dose: 10 mg Brimonidine Tartrate (Alphagan P 0.1% -) 1 drop OU BID [facility] Last Admin: 07/12/17 10:22 Dose: 1 drop Docusate Sodium (Colace -) 100 mg PO DAILY [facility] Last Admin: 07/12/17 10:19 Dose: 100 mg Gabapentin (Neurontin -) 100 mg PO TID [facility] Last Admin: 07/12/17 06:05 Dose: 100 mg Hydralazine HCl (Apresoline -) 25 mg PO TID [facility] Last Admin: 07/12/17 06:05 Dose: 25 mg Hydrochlorothiazide (Hctz -) 25 mg PO DAILY [facility] Last Admin: 07/12/17 10:19 Dose: 25 mg Insulin Aspart (Novolog Vial Sliding Scale -) 1 vial SQ ACHS [facility] PRN Reason: Protocol Last Admin: 07/12/17 06:06 Dose: 2 units Metoprolol Succinate (Toprol Xl -) 25 mg PO DAILY [facility] Last Admin: 07/12/17 10:20 Dose: 25 mg Non-Formulary Medication (Brinzolamide [Azopt]) 1 drop OU TID [facility] Ofloxacin (Ocuflox 0.3% Eye Drops -) 1 drop OU TID [facility] Last Admin: 07/12/17 06:05 Dose: 1 drop Polyethylene Glycol (Miralax (For Daily Use) -) 17 gm PO BID [facility] Last Admin: 07/12/17 10:19 Dose: 17 gm Ranitidine HCl (Zantac -) 150 mg PO DAILY [facility] Last Admin: 07/12/17 10:19 Dose: 150 mg Senna (Senna -) 1 tab PO DAILY [facility] Last Admin: 07/12/17 10:20 Dose: 1 tab Constitutional: Yes: NAD Eyes: Yes: EOM Intact HENT: Yes: Normocephalic Neck: Yes: Trachea Midline Cardiovascular: Yes: Regular Rate and Rhythm, S1, S2 Respiratory: Yes: CTA Bilaterally Gastrointestinal: Yes: Normal Bowel Sounds, Soft, Abdomen, Obese Musculoskeletal: Yes: Muscle Weakness Edema: LLE: 1+, RLE: 1+ Integumentary: Yes: WNL Neurological: Yes: Alert, Pre-Existing Deficit, Weakness Labs: Laboratory Results - last 24 hr 07/11/17 07/11/17 07/11/17 10:24 10:24 13:05 PT with INR 11.60 INR 1.03 PTT (Actin FS) 27.6 Sodium 136 Potassium 4.6 Chloride 103 Carbon Dioxide 24 Anion Gap 9 BUN 60 H Creatinine 4.5 H Creat Clearance w eGFR 13.10 POC Glucometer 229 Random Glucose 220 H D Calcium 9.1 Total Bilirubin 0.1 L D AST 15 ALT 22 Alkaline Phosphatase 117 Total Protein 6.7 Albumin 2.9 L 07/11/17 07/11/17 07/12/17 17:42 21:34 05:54 PT with INR INR PTT (Actin FS) Sodium Potassium Chloride Carbon Dioxide Anion Gap BUN Creatinine Creat Clearance w eGFR POC Glucometer 259 298 183 Random Glucose Calcium Total Bilirubin AST ALT Alkaline Phosphatase Total Protein Albumin Problem List - Problems (1) CHF (congestive heart failure) Code(s): I50.9 - HEART FAILURE, UNSPECIFIED (2) DOMINIK (obstructive sleep apnea) Code(s): G47.33 - OBSTRUCTIVE SLEEP APNEA (ADULT) (PEDIATRIC) (3) Diabetes Code(s): E11.9 - TYPE 2 DIABETES MELLITUS WITHOUT COMPLICATIONS (4) Back pain Code(s): M54.9 - DORSALGIA, UNSPECIFIED (5) HTN (hypertension) Code(s): I10 - ESSENTIAL (PRIMARY) HYPERTENSION (6) S/P TAVR (transcatheter aortic valve replacement) Code(s): Z95.2 - PRESENCE OF PROSTHETIC HEART VALVE Assessment/Plan Neuro workup ongoing: for further imaging Sunday CPAP QHS O2 as needed BD TX PRN No clear Pulmonary contraindication for OR/anesthesia (once we determine which procedure is planned) NIPPV PRN post op Dr Ortez
[2017-07-12] MEDS ORDERED: BRIMONIDINE TARTRATE 0.1% OPHTHALMIC 5 ML BOTTLE OU SCH (14:00)
[2017-07-12] MEDS ORDERED: HEPARIN NA (PORCINE) 5,000 UNITS/ML 1ML VIAL SQ SCH (14:00)
[2017-07-12] MEDS ORDERED: INSULIN (NOVOLOG) ASPART 100 UNITS/ML 10ML VIAL ONE (14:21)
[2017-07-12] MEDS ORDERED: GABAPENTIN 300 MG CAPSULE (FP) PO SCH (14:30)
--- NOTE | 2017-07-12 14:45 | PN ---
Progress Note, Physician History of Present Illness: Pt seen and examined at bedside. He is awake and appears comfortable. He denies shortness of breath. - Current Medication List Current Medications: Active Medications Acetaminophen (Tylenol -) 650 mg PO Q4H PRN PRN Reason: BACK PAIN Amlodipine Besylate (Norvasc -) 10 mg PO DAILY [facility] Last Admin: 07/12/17 10:20 Dose: 10 mg Atorvastatin Calcium (Lipitor -) 10 mg PO HS [facility] Last Admin: 07/11/17 21:41 Dose: 10 mg Brimonidine Tartrate (Alphagan P 0.1% -) 1 drop OU TID [facility] Last Admin: 07/12/17 14:38 Dose: 1 drop Docusate Sodium (Colace -) 100 mg PO DAILY [facility] Last Admin: 07/12/17 10:19 Dose: 100 mg Gabapentin (Neurontin -) 600 mg PO TID [facility] Last Admin: 07/12/17 14:37 Dose: 600 mg Heparin Sodium (Porcine) (Heparin -) 5,000 unit SQ TID [facility] Last Admin: 07/12/17 14:37 Dose: 5,000 unit Hydralazine HCl (Apresoline -) 25 mg PO TID [facility] Last Admin: 07/12/17 14:37 Dose: 25 mg Hydrochlorothiazide (Hctz -) 25 mg PO DAILY [facility] Last Admin: 07/12/17 10:19 Dose: 25 mg Insulin Aspart (Novolog Vial Sliding Scale -) 1 vial SQ ACHS [facility] PRN Reason: Protocol Last Admin: 07/12/17 14:25 Dose: 6 units Insulin Detemir (Levemir Vial) 50 units SQ AM [facility] Insulin Detemir (Levemir Vial) 50 units SQ ONCE ONE Stop: 07/12/17 15:01 Last Admin: 07/12/17 14:37 Dose: 50 units Metoprolol Succinate (Toprol Xl -) 25 mg PO DAILY [facility] Last Admin: 07/12/17 10:20 Dose: 25 mg Non-Formulary Medication (Brinzolamide [Azopt]) 1 drop OU TID [facility] Ofloxacin (Ocuflox 0.3% Eye Drops -) 1 drop OU TID [facility] Last Admin: 07/12/17 14:38 Dose: 1 drop Polyethylene Glycol (Miralax (For Daily Use) -) 17 gm PO BID [facility] Last Admin: 07/12/17 10:19 Dose: 17 gm Ranitidine HCl (Zantac -) 150 mg PO DAILY [facility] Last Admin: 07/12/17 10:19 Dose: 150 mg Senna (Senna -) 1 tab PO DAILY [facility] Last Admin: 07/12/17 10:20 Dose: 1 tab - Objective Vital Signs: Vital Signs Temperature 98.5 F 07/12/17 10:00 Pulse Rate 65 07/12/17 10:00 Respiratory Rate 18 07/12/17 10:00 Blood Pressure 159/71 07/12/17 10:00 O2 Sat by Pulse Oximetry (%) 96 07/11/17 21:00 Constitutional: Yes: Calm Eyes: Yes: Conjunctiva Clear HENT: Yes: Atraumatic Neck: Yes: Supple Cardiovascular: Yes: S1, S2 Respiratory: Yes: CTA Bilaterally Gastrointestinal: Yes: Normal Bowel Sounds, Soft, Abdomen, Obese Genitourinary: Yes: WNL Musculoskeletal: Yes: WNL Edema: Yes Edema: LUE: Trace, RUE: Trace Neurological: Yes: Oriented Psychiatric: Yes: Oriented Labs: CBC, BMP 07/11/17 10:24 07/11/17 10:24 INR, PTT INR 1.03 (0.82-1.09) 07/11/17 10:24 Assessment/Plan Current Medications Generic Name Dose Route Start Last Admin Trade Name Car PRN Reason Stop Dose Admin Acetaminophen 650 mg 07/07/17 21:40 Tylenol - PO Q4H PRN BACK PAIN Amlodipine Besylate 10 mg 07/08/17 10:00 07/12/17 10:20 Norvasc - PO 10 mg DAILY [facility] Administration Atorvastatin Calcium 10 mg 07/09/17 22:00 07/11/17 21:41 Lipitor - PO 10 mg HS [facility] Administration Brimonidine Tartrate 1 drop 07/12/17 14:00 07/12/17 14:38 Alphagan P 0.1% - OU 1 drop TID [facility] Administration Docusate Sodium 100 mg 07/08/17 10:00 07/12/17 10:19 Colace - PO 100 mg DAILY [facility] Administration Gabapentin 600 mg 07/12/17 14:30 07/12/17 14:37 Neurontin - PO 600 mg TID [facility] Administration Heparin Sodium (Porcine) 5,000 unit 07/12/17 14:00 07/12/17 14:37 Heparin - SQ 5,000 unit TID [facility] Administration Hydralazine HCl 25 mg 07/08/17 22:00 07/12/17 14:37 Apresoline - PO 25 mg TID [facility] Administration Hydrochlorothiazide 25 mg 07/08/17 10:00 07/12/17 10:19 Hctz - PO 25 mg DAILY [facility] Administration Insulin Aspart 1 vial 07/07/17 22:00 07/12/17 14:25 Novolog Vial Sliding Scale - SQ 6 units ACHS [facility] Administration Protocol Insulin Detemir 50 units 07/13/17 07:00 Levemir Vial SQ AM [facility] Insulin Detemir 50 units 07/12/17 15:00 07/12/17 14:37 Levemir Vial SQ 07/12/17 15:01 50 units ONCE ONE Administration Metoprolol Succinate 25 mg 07/09/17 10:00 07/12/17 10:20 Toprol Xl - PO 25 mg DAILY [facility] Administration Non-Formulary Medication 1 drop 07/10/17 14:00 Brinzolamide [Azopt] OU TID [facility] Ofloxacin 1 drop 07/10/17 14:00 07/12/17 14:38 Ocuflox 0.3% Eye Drops - OU 1 drop TID [facility] Administration Polyethylene Glycol 17 gm 07/12/17 10:00 07/12/17 10:19 Miralax (For Daily Use) - PO 17 gm BID [facility] Administration Ranitidine HCl 150 mg 07/08/17 10:00 07/12/17 10:19 Zantac - PO 150 mg DAILY [facility] Administration Senna 1 tab 07/08/17 10:00 07/12/17 10:20 Senna - PO 1 tab DAILY [facility] Administration Impression 1. CKD 2. DM 3. cervical spine disease 4. HTN 5. CHF 6. obesity 7. anemia 8. DOMINIK 9. 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
--- NOTE | 2017-07-12 14:49 | DS ---
Physical Exam: SUBJECTIVE: Patient seen and examined; no new complaints, still with neck, back pain, inability to ambulate. OBJECTIVE: Vital Signs Period Temp Pulse Resp BP Sys/Kauffman Pulse Ox Last 24 Hr 97.2 F-98.8 F 61-109 18-20 144-166/64-73 96 PHYSICAL EXAM GENERAL: The patient is obese, awake, alert, and fully oriented, in no acute distress. HEAD: Normal with no signs of trauma. NECK: Trachea midline, full range of motion, supple. LUNGS: Breath sounds equal, clear to auscultation bilaterally, no wheezes, no crackles, no accessory muscle use. HEART: Regular rate and rhythm, S1, S2 without murmur, rub or gallop. ABDOMEN: Soft, nontender, nondistended, normoactive bowel sounds, no guarding, no rebound, no hepatosplenomegaly, no masses. EXTREMITIES: 2+ pulses, warm, well-perfused, no edema. NEURO: Cranial nerves II-XII intact. Normal speech. 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 Edwards is a 66 yo M with a PMHx of CHF, S/P TAVR unclear as to date, was on asa/plavix, uncontrolled DM and previous cervical spine surgery presents to the ED with back pain and weakness to his upper and lower extremities and recent inability to ambulate (past week). Patient states he was sent over by neurosurgeon for MRI and possible cervical spin surgery. Unfortunately, patient to large to fit into the MRI patient. After careful discussion with multiple specialties, plan is to have myelogram done on Sunday, July 16 2017,to evaluate best option for treatment. Patient needs to be off ASA and plavix for 7 days, there for [facility]. On Sunday, pending study results, neurosurgery plan will be discussed. Potential surgery date is July 24. COntinue home medications for BP, DM, CHF, CPAP at night for DOMINIK. Hold ASA and plavix. Minutes to complete discharge: 40 <Rivka Barragan - Last Filed: 07/12/17 14:49> Physical Exam: Patient seen and examined Vital Signs Temperature 98.4 F 07/12/17 15:32 Pulse Rate 64 07/12/17 15:32 Respiratory Rate 16 07/12/17 15:32 Blood Pressure 158/59 07/12/17 15:32 O2 Sat by Pulse Oximetry (%) 96 07/12/17 09:00 CBCD WBC 7.7 K/mm3 (4.0-10.0) 07/11/17 10:24 RBC 3.69 M/mm3 (4.00-5.60) L 07/11/17 10:24 Hgb 9.8 GM/dL (11.7-16.9) L 07/11/17 10:24 Hct 30.3 % (35.4-49) L 07/11/17 10:24 MCV 82.1 fl (80-96) 07/11/17 10:24 MCHC 32.4 g/dl (32.0-35.9) 07/11/17 10:24 RDW 14.6 % (11.9-15.9) 07/11/17 10:24 Plt Count 214 K/MM3 (134-434) 07/11/17 10:24 MPV 8.8 fl (7.5-11.1) 07/11/17 10:24 CMP Sodium 136 mmol/L (136-145) 07/11/17 10:24 Potassium 4.6 mmol/L (3.5-5.1) 07/11/17 10:24 Chloride 103 mmol/L (98-107) 07/11/17 10:24 Carbon Dioxide 24 mmol/L (21-32) 07/11/17 10:24 Anion Gap 9 (8-16) 07/11/17 10:24 BUN 60 mg/dL (7-18) H 07/11/17 10:24 Creatinine 4.5 mg/dL (0.7-1.3) H 07/11/17 10:24 Creat Clearance w eGFR 13.10 (>60) 07/11/17 10:24 Random Glucose 220 mg/dL (74-106) H D 07/11/17 10:24 Calcium 9.1 mg/dL (8.5-10.1) 07/11/17 10:24 Total Bilirubin 0.1 mg/dL (0.2-1.0) L D 07/11/17 10:24 AST 15 U/L (15-37) 07/11/17 10:24 ALT 22 U/L (12-78) 07/11/17 10:24 Alkaline Phosphatase 117 U/L (45-117) 07/11/17 10:24 Total Protein 6.7 g/dl (6.4-8.2) 07/11/17 10:24 Albumin 2.9 g/dl (3.4-5.0) L 07/11/17 10:24 CARDIAC ENZYMES Creatine Kinase Cancelled 07/07/17 16:52 Troponin I 0.03 ng/ml (0.00-0.05) 07/07/17 17:55 Home Medications Medication Instructions Recorded Amlodipine Besylate 10 mg PO DAILY 07/08/17 Cholecalciferol (Vitamin D3) 2,000 unit PO DAILY 07/08/17 [Vitamin D3] Docusate Sodium 100 mg PO DAILY 07/08/17 Gabapentin 600 mg PO TID 07/08/17 Hydralazine HCl 75 mg PO TID 07/08/17 Hydrochlorothiazide 25 mg PO DAILY 07/08/17 Metoprolol Tartrate 25 mg PO BID 07/08/17 Ranitidine [Zantac -] 150 mg PO DAILY 07/08/17 Sennosides [Senna] 8.6 mg PO DAILY 07/08/17 Simvastatin 20 mg PO DAILY 07/08/17 Insulin (Levemir) [Levemir Vial] 95 unit SQ DAILY 07/09/17 Insulin (Novolog) [Novolog -] 35 units SQ Q3H5XD 07/09/17 Brimonidine Tartrate [Alphagan P 1 drop OU TID 07/10/17 0.1% -] Brinzolamide [Azopt] 1 drop OU TID 07/10/17 Ofloxacin 0.3% Ophth Soln [Ocuflox 1 drop OU TID 07/10/17 -] Patient is being transferred to rehab. Ludy, will have Myelogram on July 16, 2017 , patient will be seen by Dr. Marte on July 24 2017. <Kristy Gatica - Last Filed: 07/12/17 17:43> Discharge Summary Reason For Visit: NECK PAIN Current Active Problems Back pain (Acute) CHF (congestive heart failure) (Acute) Cervical myelopathy (Acute) Diabetes (Acute) Disorder of implanted penile prosthesis (Acute) HTN (hypertension) (Acute) Lumbosacral spondylosis (Acute) Lumbosacral spondylosis (Acute) Neck pain (Acute) DOMINIK (obstructive sleep apnea) (Acute) S/P TAVR (transcatheter aortic valve replacement) (Acute) - Home Medications Comprehensive Discharge Medication List: Ambulatory Orders Amlodipine Besylate 10 mg PO DAILY 07/08/17 Cholecalciferol (Vitamin D3) [Vitamin D3] 2,000 unit PO DAILY 07/08/17 Docusate Sodium 100 mg PO DAILY 07/08/17 Gabapentin 600 mg PO TID 07/08/17 Hydralazine HCl 75 mg PO TID 07/08/17 Hydrochlorothiazide 25 mg PO DAILY 07/08/17 Metoprolol Tartrate 25 mg PO BID 07/08/17 Ranitidine [Zantac -] 150 mg PO DAILY 07/08/17 Sennosides [Senna] 8.6 mg PO DAILY 07/08/17 Simvastatin 20 mg PO DAILY 07/08/17 Insulin (Levemir) [Levemir Vial] 95 unit SQ DAILY 07/09/17 Insulin (Novolog) [Novolog -] 35 units SQ Q3H5XD 07/09/17 Brimonidine Tartrate [Alphagan P 0.1% -] 1 drop OU TID 07/10/17 Brinzolamide [Azopt] 1 drop OU TID 07/10/17 Ofloxacin 0.3% Ophth Soln [Ocuflox -] 1 drop OU TID 07/10/17 <Rivka Barragan - Last Filed: 07/12/17 14:49> - Home Medications Comprehensive Discharge Medication List: Ambulatory Orders Amlodipine Besylate 10 mg PO DAILY 07/08/17 Cholecalciferol (Vitamin D3) [Vitamin D3] 2,000 unit PO DAILY 07/08/17 Docusate Sodium 100 mg PO DAILY 07/08/17 Gabapentin 600 mg PO TID 07/08/17 Hydralazine HCl 75 mg PO TID 07/08/17 Hydrochlorothiazide 25 mg PO DAILY 07/08/17 Metoprolol Tartrate 25 mg PO BID 07/08/17 Ranitidine [Zantac -] 150 mg PO DAILY 07/08/17 Sennosides [Senna] 8.6 mg PO DAILY 07/08/17 Simvastatin 20 mg PO DAILY 07/08/17 Insulin (Levemir) [Levemir Vial] 95 unit SQ DAILY 07/09/17 Insulin (Novolog) [Novolog -] 35 units SQ Q3H5XD 07/09/17 Brimonidine Tartrate [Alphagan P 0.1% -] 1 drop OU TID 07/10/17 Brinzolamide [Azopt] 1 drop OU TID 07/10/17 Ofloxacin 0.3% Ophth Soln [Ocuflox -] 1 drop OU TID 07/10/17 <Kristy Gatica - Last Filed: 07/12/17 17:43> - Instructions Diet, Activity, Other Instructions: You were admitted for the treatment of your back problems. You are being discharged to a rehab facility so that you can get some help with everyday tasks as well as get stronger while you wait for your surgery. You are scheduled for a myelogram test at [facility] on Sunday. Please return [facility] on Sunday for your appointment. You should NOT take your Plavix or your Aspirin until after your surgery. You should resume taking the rest of your medications starting tomorrow. We will contact you after the test once Dr. Tinoco has scheduled you for surgery. If you begin to experience Chest pain, Shortness of breath, worsening limb pain or paralysis, please call your doctor or return tot he emergency department. Referrals: Johan Tinoco MD, FAANS [Staff Physician] - Nasreen Mederos [Non Staff, Medical] - Disposition: INTERMEDIATE FACILITY This patient is new to me today: No Emergency Visit: Yes ED Registration Date: 07/07/17 Care time: The patient presented to the Emergency Department on the above date and was hospitalized for further evaluation of their emergent condition. Critical Care patient: No - Discharge Referral Referred to [facility] Med P.C[facility] No <Rivka Barragan - Last Filed: 07/12/17 14:49>
[2017-07-12] MEDS ORDERED: INSULIN DETEMIR 100 UNITS/ML MDV SQ ONE ×2 (14:52→15:00)
[2017-07-12 15:34] VITALS: BP 158/59; PULSE 64; TEMP 98.4
[2017-07-13] MEDS ORDERED: INSULIN DETEMIR 100 UNITS/ML MDV SQ SCH (07:00)
== END 2017-07-12 16:56 | DRG 551 ==
LOC: JER 15:00 → JERBED 22:59 → J8W 07-08 02:36
PROVIDERS: ADMIT Internal Medicine; ATTEND Internal Medicine
DX: M50.00 Cervical disc disorder with myelopathy, unspecified cervical region (principal); R53.2 Functional quadriplegia; N17.9 Acute kidney failure, unspecified; Z68.43 Body mass index [BMI] 50.0-59.9, adult; G82.20 Paraplegia, unspecified; I13.0 Hypertensive heart and chronic kidney disease with heart failure and stage 1 through stage 4 chronic kidney disease, or unspecified chronic kidney disease; I44.0 Atrioventricular block, first degree; E66.01 Morbid (severe) obesity due to excess calories; G47.33 Obstructive sleep apnea (adult) (pediatric); D64.9 Anemia, unspecified; Z95.2 Presence of prosthetic heart valve; E11.319 Type 2 diabetes mellitus with unspecified diabetic retinopathy without macular edema; E78.5 Hyperlipidemia, unspecified; E11.22 Type 2 diabetes mellitus with diabetic chronic kidney disease; N18.9 Chronic kidney disease, unspecified; M47.897 Other spondylosis, lumbosacral region; E11.40 Type 2 diabetes mellitus with diabetic neuropathy, unspecified; Z79.4 Long term (current) use of insulin; Z91.040 Latex allergy status
CPT/HCPCS: 36415; 71045-TC-FY; 72125-TC; 72131-TC; 76775-TC; 76856-TC; 77074-TC-FY; 80048; 80053; 81003; 81015; 82272; 82570; 82607; 82746; 82962; 83036; 83540; 83550; 83735; 84100; 84155; 84156; 84165; 84300; 84443; 84484; 85025; 85027; 85610; 85651; 85730; 86140; 86593; 87804; 93005; 93010; 93306-TC; 93970-TC; 95860-TC; 97116-GP; 97161-GP; 99283-25; J1644

== ENCOUNTER 2017-07-20 10:56 | Day surgery (SDC) | payer OTHER ==
[2017-07-20 12:17] VITALS: BMI 39.8
[2017-07-20 15:43] VITALS: BP 145/69; PULSE 63; TEMP 98
== END 2017-07-20 15:50 | disposition home or self-care (01) ==
LOC: JRADIR 10:56
PROVIDERS: ATTEND Neurological Surgery
PROC: B01BYZZ Fluoroscopy of Spinal Cord using Other Contrast (ICD-10-PCS; principal; 2017-07-20)
DX: R53.1 Weakness (principal); Z53.8 Procedure and treatment not carried out for other reasons
CPT/HCPCS: 62304; 72265-TC-FY

== ENCOUNTER 2017-09-11 10:00 | Inpatient (IN) | payer OTHER ==
--- NOTE | 2017-09-06 15:13 | HP ---
Admitting History and Physical - Admission Chief Complaint: bilateral lower and upper ext weakness History of Present Illness: This is a 66 year old male with a PMH of HTN, DM II, HLD, obesity, sleep apnea with CPAP machine, CKD, . He is S/P an RCA stent 05/30/10. He had aortic stenosis and received a transapical TAVR on 07/04/[address] [facility]. He is wheelchair bound. Last Cardiac Cath 06/17/13 patent RCA stent, 60% stenosis to prox left circ. He is being evaluated for surgery Sunday 09/[address] Morales. Planned for exploration c2-t2 lamenectomies, possible c7-t1 osteotomies, deformity correction, c2-t2 posterior fusion History Source: Patient Limitations to Obtaining History: No Limitations - Past Medical History Cardiovascular: Yes: AFIB, CHF, HTN, Other (TAVR) Pulmonary: Yes: COPD, Sleep Apnea Gastrointestinal: Yes: GERD, Other (gastroparesis) Renal/: Yes: Renal Inusuff Heme/Onc: Yes: Anemia Musculoskeletal: Yes: Chronic low back pain, Paraplegia Endocrine: Yes: Diabetes Mellitus - Smoking History Smoking history: Former smoker Have you smoked in the past 12 months: No - Alcohol/Substance Use Hx Alcohol Use: No - Social History History of Recent Travel: No Home Medications - Allergies Allergies/Adverse Reactions: Allergies Allergy/AdvReac Type Severity Reaction Status Date / Time furosemide [From Lasix] Allergy Verified 09/06/17 14:55 latex Allergy Verified 07/20/17 11:46 - Home Medications Home Medications: Ambulatory Orders Amlodipine Besylate 10 mg PO DAILY 07/08/17 Cholecalciferol (Vitamin D3) [Vitamin D3] 2,000 unit PO DAILY 07/08/17 Docusate Sodium 200 mg PO DAILY 07/08/17 Gabapentin 600 mg PO TID 07/08/17 Hydralazine HCl 75 mg PO TID 07/08/17 Hydrochlorothiazide 25 mg PO DAILY 07/08/17 Metoprolol Tartrate 25 mg PO BID 07/08/17 Ranitidine [Zantac -] 150 mg PO DAILY 07/08/17 Sennosides [Senna] 8.6 mg PO DAILY 07/08/17 Simvastatin 20 mg PO DAILY 07/08/17 Brimonidine Tartrate [Alphagan P 0.1% -] 1 drop OU TID 07/10/17 Brinzolamide [Azopt] 1 drop OU TID 07/10/17 Ofloxacin 0.3% Ophth Soln [Ocuflox -] 1 drop OU TID 07/10/17 Insulin Sliding Scale [Novolog Vial Sliding Scale -] 0 units SQ ACHS 07/16/17 Aspirin [Ecotrin] 81 mg PO DAILY 09/06/17 Clopidogrel Bisulfate [Plavix] 75 mg PO DAILY 09/06/17 Insulin Glargine,Hum.rec.anlog [Toujeo Solostar] 95 unit SQ DAILY 09/06/17 Review of Systems - Review of Systems Constitutional: reports: No Symptoms Eyes: reports: No Symptoms HENT: reports: No Symptoms Neck: reports: No Symptoms Cardiovascular: reports: No Symptoms Respiratory: reports: No Symptoms Gastrointestinal: reports: No Symptoms Genitourinary: reports: No Symptoms Musculoskeletal: reports: Muscle Weakness Integumentary: reports: No Symptoms Neurological: reports: Numbness, Weakness Endocrine: reports: No Symptoms Hematology/Lymphatic: reports: No Symptoms Psychiatric: reports: No Symptoms Physical Examination Constitutional: Yes: Calm Eyes: Yes: Conjunctiva Clear HENT: Yes: Atraumatic Neck: Yes: Supple Cardiovascular: Yes: Regular Rate and Rhythm, Murmur, S1, S2 Respiratory: Yes: Regular, Diminished Gastrointestinal: Yes: Normal Bowel Sounds, Soft, Abdomen, Obese Renal/: Yes: WNL Musculoskeletal: Yes: Muscle Weakness Edema: Yes Edema: LLE: 1+, RLE: 1+ Neurological: Yes: Alert, Oriented, Weakness Assessment/Plan Assessment: 67 year old male evaluated for spinal surgery on 09/11 Plan: 1. Exploration c2-t2 lamenectomies, possible c7-t1 osteotomies, deformity correction, c2-t2 posterior fusion - Patient was seen and evaluated by cardiology 09/04, Dr. Garcia, cleared for surgery - Discussed with Dr. Langford, Pulmonary, regarding patient procedure, no contraindication, pt has no other pulmonary history, no use of inhalers. - Anesthesiology to be aware pt has sleep apnea and uses CPAP machine - Discussed above with patient Visit type - Emergency Visit Emergency Visit: No - New Patient This patient is new to me today: Yes Date on this admission: 09/06/17 - Critical Care Critical Care patient: No Hospitalist Screening - Colonoscopy Questionnaire Colonoscopy Questionnaire: Colonoscopy Questionnaire - Patient: 50 - 75 years old and never had a screening colonoscopy: Unknown History of colon or rectal polyps, or CA: Unknown History of IBD, Crohn's disease or UC: Unknown History of abdominal radiation therapy as a child: Unknown - Relative: 1 with colon or rectal CA, or polyps at age 60 or younger: Unknown Colon or rectal CA diagnosed at age 45 or younger: Unknown Multiple relatives with colon or rectal CA: Unknown - Outcome: Screening Result: Negative Screen
--- NOTE | 2017-09-11 12:33 | HP ---
History & Physical Update - History History: No Change - Physical Physical: No Change - Assessment Assessment: No Change - Plan Plan: No Change (since pre-op assesment on 09/06/17)
[2017-09-11] MEDS ORDERED: ceFAZolin SODIUM 1 GM VIAL IVPB ONE (14:20)
[2017-09-11] MEDS ORDERED: VANCOMYCIN 500 MG VIAL (RESTRICTED TO ID ONLY) IVPB ONE (14:20)
[2017-09-11] MEDS ORDERED: THROMBIN (BOVINE) 20,000 UNIT VIAL TP ONE (14:23)
[2017-09-11] MEDS ORDERED: LIDOCAINE 1%/EPI 1:100000 (20 ML MULTI DOSE VIAL) IJ ONE (14:40)
[2017-09-11] MEDS ORDERED: BACITRACIN 50,000 UNITS VIAL TP ONE (14:47)
[2017-09-11] MEDS ORDERED: GENTAMICIN SO4 80 MG/2 ML VIAL IVPB ONE (14:48)
[2017-09-11] MEDS ORDERED: THROMBIN (BOVINE) 5,000 UNIT VIAL TP ONE (15:00)
[2017-09-11] MEDS ORDERED: GELATIN, ABSORBABLE 100 EACH SPONGE TP ONE (15:00)
[2017-09-11] MEDS ORDERED: BUPIVACAINE HCL/PF (5 MG/ML) 30 ML VIAL IJ ONE (17:48)
[2017-09-11] MEDS ORDERED: HYDROmorphone *PCA* 10MG/50ML DISP.SYRIN PCA ONE (18:12)
[2017-09-11] MEDS ORDERED: ONDANSETRON 4 MG/2 ML VIAL IVPUSH PRN ×3 (18:18→18:35)
[2017-09-11] MEDS ORDERED: SODIUM CHLORIDE 1,000 ML IV SCH (18:30)
[2017-09-11] MEDS: HYDROmorphone *PCA* 10MG/50ML DISP.SYRIN PCA SCH (18:30)
--- NOTE | 2017-09-11 19:22 | OP ---
Operative Note - Note: Operative Date: 09/11/17 Pre-Operative Diagnosis: cervical stenosis and instability Operation: exploration of spinal fusion, C2-T2 laminectomies and C7-T1 osteotomies, deformity correction and C2-T2 posterior fusion. Post-Operative Diagnosis: Same as Pre-op Surgeon: Johan Tinoco Orchestra Conductor: Juliana Live Anesthesiologist/HOUSEHOLD MANAGER: Jennifer Harris Anesthesia: General Estimated Blood Loss (mls): 800 Drains & Tubes with Location: J/P right thoracic paravertebral Drains, Volume Out (mls): 200 (zimmerman) Fluid Volume Replaced (mls): 1,500 Operative Report Dictated: Yes
--- NOTE | 2017-09-11 19:23 | SURG ---
Surgery Incubator Machine Operator Note Incubator Machine Operator: Juliana Live PA-C Date of Service: 09/11/17 Diagnosis: cervical stenosis and instability Procedure: exploration of spinal fusion, C2-T2 laminectomies and C7-T1 osteotomies, deformity correction and C2-T2 posterior fusion. I was present for the entirety of the operative procedure. For further detail, please refer to operative report. Visit type - Case Type Case Type: Scheduled - Emergency Emergency Visit: No - New patient This patient is new to me today: Yes Date on this admission: 09/11/17
[2017-09-11] MEDS: SODIUM CHLORIDE 1,000 ML IV SCH (20:30)
--- NOTE | 2017-09-11 21:37 | CONSULT ---
Consultation: ICU Consult HISTORY OF PRESENT ILLNESS: 66yo M with PMHx of CAD and spinal stenosis who arrived from PACU from a C2-T2 spinal surgery by Dr Tinoco. Prior to surgery, he had an anterior cervical discectomy & fusion, but had recurrent spinal stenosis symptoms. This time the approach was posterior. He received preop clearance from cardio (due to hx of CAD and aortic valve replacement) and pulm (due to hx of DOMINIK). Surgery was 3 hrs long, uncomplicated. Intraop received Vanc/Ancef and 1,500mL IVF. UOP was 200cc. EBL was 800. Pt examined in the ICU. Extubated, w/ C- collar. No complaints. PMHx: Spinal stenosis CAD (latest cath 2013 shows 60% stenosis of Circumflex) Aortic Stenosis s/p AVR Obesity DOMINIK Fatty Liver Disease HTN DM2 REVIEW OF SYSTEMS: CONSTITUTIONAL: Absent: fever, chills, diaphoresis, generalized weakness, malaise, loss of appetite, weight change HEENT: Absent: rhinorrhea, nasal congestion, throat pain, throat swelling, difficulty swallowing, mouth swelling, ear pain, eye pain, visual changes CARDIOVASCULAR: Absent: chest pain, syncope, palpitations, irregular heart rate , lightheadedness, peripheral edema RESPIRATORY: Absent: cough, shortness of breath, dyspnea with exertion, orthopnea, wheezing, stridor, hemoptysis GASTROINTESTINAL:Absent: abdominal pain, abdominal distension, nausea, vomiting , diarrhea, constipation, melena, hematochezia GENITOURINARY: Absent: dysuria, frequency, urgency, hesitancy, hematuria, flank pain, genital pain MUSCULOSKELETAL: Absent: myalgia, arthralgia, joint swelling, back pain, neck pain SKIN: Absent: rash, itching, pallor HEMATOLOGIC/IMMUNOLOGIC: Absent: easy bleeding, easy bruising, lymphadenopathy, frequent infections ENDOCRINE:Absent: unexplained weight gain, unexplained weight loss, heat intolerance, cold intolerance NEUROLOGIC: Absent: headache, focal weakness or paresthesias, dizziness, unsteady gait, seizure, mental status changes, bladder or bowel incontinence PSYCHIATRIC: Absent: anxiety, depression, suicidal or homicidal ideation, hallucinations. PHYSICAL EXAMINATION Vital Signs Period Temp Pulse Resp BP Sys/Kauffman Pulse Ox Last 24 Hr 98.8 F 81-88 14-18 152-173/58-76 96-100 GEN: AAOx3, NAD, obese, C-collar in place, lying comfortably HEENT: PERRLA, EOMi CV: S1, S2, 3/6 R sided systolic murmur, RRR LUNG: Anterior breath sounds are clear to auscultation ABD: Obese, soft, NT, ND, large macular spot on R side MSK: No edema, no erythema, has dried L great toe wound w/ gel dressing NEURO: CN 2-12 grossly intact, able to move all extremities, sensation intact. ASSESSMENT/PLAN: 66yo M with PMHx of CAD, DM, DOMINIK who arrived from PACU from a C2-T2 laminectomies and posterior fusion by Dr Tinoco. # C2-T2 laminectomy & fusion -- POD0. C-collar in place. No pillows under head. No NSAIDs. Can start HSQ now. ADAT. Pain control w/ Dilaudid RISK CONTROL FIELD REPRESENTATIVE. Routine post-op CT C-spine. # CKD Stage 5 -- Could be from diabetic nephropathy (although not on an ACEi). Appears to be stable since june. # CAD -- Latest cath in 2013 shows 60% RCA stenosis as per chart. Can resume ASA. Plavix held, restart as per neurosurgery. Cardio consulted # HTN -- Well controlled. There are 4 BP meds are listed in the chart (Norvasc, Hydralazine, Lopressor, HCTz). Morning team to med-rec in AM. Will hold HCTz until all 4 are confirmed # DM2 -- Fingerstick TIDAC. ISS. Hold metformin. Continue long-acting. Continue gabapentin. A1c tmrw # L great toe wound -- Likely diabetic foot ulcer. Podiatry consulted. # Chronic UTIs -- Latest UA was negative. No urinary complaints. Consult was placed for Dr Godinez for chronic UTIs. # S/p AVR -- Stable, not on AC, but likely has bioprosthetic valve since it's not visible on CXR # DOMINIK -- Cpap at night as needed # FEN/PPx -- IVF 75cc/hr. Clear liquid. HSQ bid # Dispo -- Keep in ICU. Thank you. Hood Bloom MD - PGY1 Night ICU Healthcare Business Analyst Visit type - Emergency Visit Emergency Visit: No - New Patient This patient is new to me today: Yes Date on this admission: 09/11/17 - Critical Care Critical Care patient: Yes Total Critical Care Time (in minutes): 45 Critical Care Statement: The care of this patient involved high complexity decision making to prevent further life threatening deterioration of the patient 's condition and/or to evaluate & treat vital organ system(s) failure or risk of failure.
--- NOTE | 2017-09-11 22:28 | PN ---
Physical Exam: SUBJECTIVE: Patient seen and examined OBJECTIVE: Vital Signs Period Temp Pulse Resp BP Sys/Kauffman Pulse Ox Last 24 Hr 98.4 F-98.8 F 78-88 14-18 144-173/55-76 96-100 GENERAL: The patient is awake, alert, and fully oriented, in no acute distress. HEAD: Normal with no signs of trauma. EYES: PERRL, extraocular movements intact, sclera anicteric, conjunctiva clear. No ptosis. ENT: Ears normal, nares patent, oropharynx clear without exudates, moist mucous membranes. NECK: Trachea midline, full range of motion, supple. LUNGS: Breath sounds equal, clear to auscultation bilaterally, no wheezes, no crackles, no accessory muscle use. HEART: Regular rate and rhythm, S1, S2 without murmur, rub or gallop. ABDOMEN: Soft, nontender, nondistended, normoactive bowel sounds, no guarding, no rebound, no hepatosplenomegaly, no masses. EXTREMITIES: 2+ pulses, warm, well-perfused, no edema. NEUROLOGICAL: Cranial nerves II through XII grossly intact. Normal speech, gait not observed. PSYCH: Normal mood, normal affect. SKIN: Warm, dry, normal turgor, no rashes or lesions noted Laboratory Results - last 24 hr 09/11/17 11:46 Blood Type AB POSITIVE Antibody Screen Negative Active Medications Generic Name Dose Route Start Last Admin Trade Name Freq PRN Reason Stop Dose Admin Acetaminophen 650 mg 09/11/17 18:35 Tylenol - PO Q4H PRN FEVER Amlodipine Besylate 10 mg 09/12/17 10:00 Norvasc - PO DAILY [facility] Aspirin 81 mg 09/12/17 10:00 Ecotrin - PO DAILY [facility] Atorvastatin Calcium 10 mg 09/12/17 22:00 Lipitor - PO HS [facility] Brimonidine Tartrate 1 drop 09/11/17 22:00 Alphagan P 0.1% - OU TID [facility] Chlorhexidine Gluconate 1 applic 09/11/17 22:00 Hibiclens For Decolonization - TP HS [facility] Docusate Sodium 200 mg 09/12/17 10:00 Colace - PO DAILY [facility] Fentanyl 50 mcg 09/11/17 18:22 Sublimaze Injection - IVPUSH [id number] PRN PAIN-PACU ORDER X 4 DOSES ONLY Ferrous Sulfate 325 mg 09/12/17 08:00 Feosol - PO DAILY@0800 [facility] Folic Acid 1 mg 09/12/17 10:00 Folic Acid - PO DAILY [facility] Gabapentin 600 mg 09/11/17 22:00 Neurontin - PO TID [facility] Heparin Sodium (Porcine) 5,000 unit 09/12/17 06:00 Heparin - SQ Q8H [facility] Hydralazine HCl 75 mg 09/11/17 22:00 Apresoline - PO TID [facility] Hydromorphone HCl 0 mg 09/11/17 18:30 09/11/17 18:30 Dilaudid Director Process - DEBONE SUPERVISOR 09/18/17 18:21 10 mg DEBONE SUPERVISOR [facility] Administration Protocol Cefazolin Sodium 1 gm/ 50 mls @ 100 mls/hr 09/11/17 22:00 Dextrose IVPB BID [facility] Sodium Chloride 1,000 mls @ 75 mls/hr 09/11/17 18:45 Normal Saline - IV ASDIR [facility] Insulin Aspart 1 vial 09/11/17 19:00 Novolog Vial Sliding Scale - SQ TIDAC [facility] Protocol Metoprolol Tartrate 25 mg 09/11/17 22:00 Lopressor - PO BID [facility] Mupirocin 1 applic 09/11/17 22:00 Bactroban Ointment (For Decolonization) - NS 09/16/17 21:59 BID [facility] Non-Formulary Medication 1 drop 09/11/17 22:00 Brinzolamide [Azopt] OU TID [facility] Non-Formulary Medication 95 unit 09/12/17 10:00 Insulin Glargine,Hum.Rec.Anlog [Toucortez Solphilomena] SQ DAILY [facility] Ofloxacin 1 drop 09/11/17 22:00 Ocuflox 0.3% Eye Drops - OU TID [facility] Ondansetron HCl 4 mg 09/11/17 18:21 Zofran Injection IVPUSH Q4H PRN NAUSEA AND/OR VOMITING Ondansetron HCl 4 mg 09/11/17 18:35 Zofran Injection IVPUSH Q8H PRN NAUSEA Ranitidine HCl 150 mg 09/12/17 10:00 Zantac - PO DAILY [facility] Senna 1 tab 09/12/17 10:00 Senna - PO DAILY [facility] ASSESSMENT/PLAN:
[2017-09-11] MEDS ORDERED: ceFAZolin SODIUM 1 GM VIAL ONE (23:00)
[2017-09-11] MEDS ORDERED: DEXTROSE 5%-WATER - 50 ML IVPB ONE (23:01)
[2017-09-11] MEDS: METOPROLOL TARTRATE 25 MG TABLET (FP) PO SCH (23:04)
[2017-09-11] MEDS: GABAPENTIN 300 MG CAPSULE (FP) PO SCH (23:04)
[2017-09-11] MEDS: CEFAZOLIN 1 GM in DEXTROSE 5%-WATER - 50 ML IVPB SCH (23:05)
[2017-09-11] MEDS: hydrALAZINE HCL 25 MG TABLET (FP) PO SCH (23:05)
[2017-09-11] MEDS: OFLOXACIN 0.3% OPHTHALMIC SOLUTION 5 ML BOTTLE OU SCH (23:21)
[2017-09-11] MEDS: BRIMONIDINE TARTRATE 0.1% OPHTHALMIC 5 ML BOTTLE OU SCH (23:21)
[2017-09-11] MEDS ORDERED: PT OWN MED DRAWER 7, Y5N ONE (23:46)
[2017-09-11] MEDS: INSULIN SLIDING SCALE (NOVOLOG) 1 VIAL SQ SCH (23:48)
[2017-09-12] MEDS ORDERED: PT OWN MED DRAWER 7, Y5N ONE ×10 (06:23→21:34)
[2017-09-12] MEDS: HEPARIN NA (PORCINE) 5,000 UNITS/ML 1ML VIAL SQ SCH ×3 (06:24→21:04)
[2017-09-12] MEDS: OFLOXACIN 0.3% OPHTHALMIC SOLUTION 5 ML BOTTLE OU SCH ×3 (06:25→21:31)
[2017-09-12] MEDS: GABAPENTIN 300 MG CAPSULE (FP) PO SCH ×3 (06:25→21:04)
[2017-09-12] MEDS: hydrALAZINE HCL 25 MG TABLET (FP) PO SCH ×3 (06:25→21:04)
[2017-09-12] MEDS: BRIMONIDINE TARTRATE 0.1% OPHTHALMIC 5 ML BOTTLE OU SCH ×3 (06:25→21:11)
[2017-09-12] MEDS: INSULIN SLIDING SCALE (NOVOLOG) 1 VIAL SQ SCH ×3 (06:26→16:39)
[2017-09-12] MEDS: SODIUM CHLORIDE 1,000 ML IV SCH ×2 (07:30→15:30)
[2017-09-12 08:27] LABS: BASO % 0.2 % (0-2.0); HEMATOCRIT 25.6 % (35.4-49); HEMOGLOBIN 8.1 GM/dL (11.7-16.9); LYMPH % 5.1 % (8-40); MCH 25.9 pg (25.7-33.7); MCHC 31.7 g/dl (32.0-35.9); MEAN CELL VOLUME 81.7 fl (80-96); MEAN PLT VOLUME 8.5 fl (7.5-11.1); MONO % 12.9 % (3.8-10.2); NEUT % 81.8 % (42.8-82.8); PLATELET COUNT 179 K/MM3 (134-434); RBC 3.14 M/mm3 (4.00-5.60); RDW 15.1 % (11.9-15.9); WHITE BLOOD COUNT 15.5 K/mm3 (4.0-10.0)
[2017-09-12] MEDS: FERROUS SO4 325 MG TABLET (FP) PO SCH (08:55)
[2017-09-12 09:11] LABS: ALBUMIN 2.8 g/dl (3.4-5.0); ALK PHOS 84 U/L (45-117); ANION GAP 8 (8-16); BILIRUBIN,TOTAL 0.2 mg/dL (0.2-1.0); BLOOD UREA NITROGEN 59 mg/dL (7-18); CALCIUM 8.8 mg/dL (8.5-10.1); CHLORIDE 106 mmol/L (98-107); CO2 26 mmol/L (21-32); CREATININE 4.9 mg/dL (0.7-1.3); GLUCOSE,RANDOM 163 mg/dL (74-106); MAGNESIUM 2.1 mg/dL (1.8-2.4); PHOSPHOROUS 5.1 mg/dL (2.5-4.9); POTASSIUM 5.2 mmol/L (3.5-5.1); SGOT/AST 33 U/L (15-37); SGPT/ALT 14 U/L (12-78); SODIUM 140 mmol/L (136-145); TOT PROT 6.2 g/dl (6.4-8.2)
--- NOTE | 2017-09-12 09:13 | CONSULT ---
Consult - text type - Consultation Consultation Note: Patient seen in bed for wound left big toe. Patient is not alerted or oriented as he is intubated. vss +grade1-2 wound left big toe with drainage under eschar, -mal odor, -purulent, wbc=15.5, awaiting hgba1c grade 1 wound left big toe. xray left big toe. Wound culture done. Betadine dressing change daily. will follow. Thank you for consult.
[2017-09-12] MEDS ORDERED: DEXTROSE 5%-WATER - 50 ML IVPB ONE ×2 (09:27→17:48)
[2017-09-12] MEDS ORDERED: ceFAZolin SODIUM 1 GM VIAL ONE (09:27)
[2017-09-12] MEDS: FOLIC ACID 1 MG TABLET (FP) PO SCH (09:31)
[2017-09-12] MEDS: amLODIPine BESYLATE 10 MG TABLET (FP) PO SCH (09:31)
[2017-09-12] MEDS: METOPROLOL TARTRATE 25 MG TABLET (FP) PO SCH ×2 (09:31→21:04)
[2017-09-12] MEDS: CEFAZOLIN 1 GM in DEXTROSE 5%-WATER - 50 ML IVPB SCH (09:32)
[2017-09-12] MEDS ORDERED: HYDROCHLOROTHIAZIDE 25 MG TABLET (FP) PO SCH (10:00)
[2017-09-12] MEDS: RANITIDINE HCL 150 MG TABLET (FP) PO SCH (11:15)
[2017-09-12] MEDS: DOCUSATE SODIUM 100 MG CAPSULE (FP) PO SCH (11:15)
[2017-09-12] MEDS: SENNOSIDES 8.6MG TABLET (FP) PO SCH (11:15)
[2017-09-12] MEDS: ASPIRIN COATED 81 MG TABLET.EC PO SCH (11:16)
--- NOTE | 2017-09-12 11:56 | PN ---
Physical Exam: SUBJECTIVE: Patient seen and examined. Complains of b/l LE and UE numbness and pain. Also complains of Right hand pain. Less pain in the L hand. Unchanged from baseline. OBJECTIVE: Vital Signs Period Temp Pulse Resp BP Sys/Kauffman Pulse Ox Last 24 Hr 98.2 F-99 F 78-88 12-20 144-173/53-76 96-100 GEN: AAOx3, NAD, obese, C-collar in place, lying comfortably HEENT: PERRLA, EOMi CV: S1, S2, 3/6 R sided systolic murmur, RRR LUNG: Anterior breath sounds are clear to auscultation ABD: Obese, soft, NT, ND MSK: No edema, no erythema, has dried L great toe wound w/ dressing NEURO: CN 2-12 grossly intact, able to move all extremities. Laboratory Results - last 24 hr 09/11/17 09/11/17 09/12/17 11:46 23:43 05:31 WBC RBC Hgb Hct MCV MCH MCHC RDW Plt Count MPV Neutrophils % Lymphocytes % Monocytes % Eosinophils % Basophils % Nucleated RBC % Sodium Potassium Chloride Carbon Dioxide Anion Gap BUN Creatinine Creat Clearance w eGFR POC Glucometer [phone] Random Glucose Hemoglobin A1c % Calcium Phosphorus Magnesium Total Bilirubin AST ALT Alkaline Phosphatase Total Protein Albumin Blood Type AB POSITIVE Antibody Screen Negative 09/12/17 09/12/17 09/12/17 08:12 08:12 08:12 WBC 15.5 H D RBC 3.14 L D Hgb 8.1 L D Hct 25.6 L D MCV 81.7 MCH 25.9 MCHC 31.7 L RDW 15.1 Plt Count 179 D MPV 8.5 Neutrophils % 81.8 D Lymphocytes % 5.1 L D Monocytes % 12.9 H Eosinophils % 0.0 D Basophils % 0.2 Nucleated RBC % 0 Sodium 140 Potassium 5.2 H Chloride 106 Carbon Dioxide 26 Anion Gap 8 BUN 59 H Creatinine 4.9 H Creat Clearance w eGFR 11.84 POC Glucometer Random Glucose 163 H D Hemoglobin A1c % 6.3 H D Calcium 8.8 Phosphorus 5.1 H Magnesium 2.1 Total Bilirubin 0.2 AST 33 D ALT 14 D Alkaline Phosphatase 84 D Total Protein 6.2 L Albumin 2.8 L D Blood Type Antibody Screen 05/30/18 11:06 WBC RBC Hgb Hct MCV MCH MCHC RDW Plt Count MPV Neutrophils % Lymphocytes % Monocytes % Eosinophils % Basophils % Nucleated RBC % Sodium Potassium Chloride Carbon Dioxide Anion Gap BUN Creatinine Creat Clearance w eGFR POC Glucometer [phone] Random Glucose Hemoglobin A1c % Calcium Phosphorus Magnesium Total Bilirubin AST ALT Alkaline Phosphatase Total Protein Albumin Blood Type Antibody Screen Active Medications Generic Name Dose Route Start Last Admin Trade Name Freq PRN Reason Stop Dose Admin Acetaminophen 650 mg 09/11/17 18:35 Tylenol - PO Q4H PRN FEVER Amlodipine Besylate 10 mg 09/12/17 10:00 09/12/17 09:31 Norvasc - PO 10 mg DAILY [facility] Administration Aspirin 81 mg 09/12/17 10:00 09/12/17 11:16 Ecotrin - PO 81 mg DAILY [facility] Administration Atorvastatin Calcium 10 mg 09/12/17 22:00 Lipitor - PO HS [facility] Brimonidine Tartrate 1 drop 09/11/17 22:00 09/12/17 06:25 Alphagan P 0.1% - OU 1 drop TID [facility] Administration Chlorhexidine Gluconate 1 applic 09/11/17 22:00 Hibiclens For Decolonization - TP HS [facility] Docusate Sodium 200 mg 09/12/17 10:00 09/12/17 11:15 Colace - PO 200 mg DAILY [facility] Administration Fentanyl 50 mcg 09/11/17 18:22 Sublimaze Injection - IVPUSH [id number] PRN PAIN-PACU ORDER X 4 DOSES ONLY Ferrous Sulfate 325 mg 09/12/17 08:00 09/12/17 08:55 Feosol - PO Not Given DAILY@0800 [facility] Folic Acid 1 mg 09/12/17 10:00 09/12/17 09:31 Folic Acid - PO 1 mg DAILY [facility] Administration Gabapentin 600 mg 09/11/17 22:00 09/12/17 06:25 Neurontin - PO 600 mg TID [facility] Administration Heparin Sodium (Porcine) 5,000 unit 09/12/17 06:00 09/12/17 06:24 Heparin - SQ 5,000 unit Q8H [facility] Administration Hydralazine HCl 75 mg 09/11/17 22:00 09/12/17 06:25 Apresoline - PO 75 mg TID [facility] Administration Hydromorphone HCl 0 mg 09/11/17 18:30 09/11/17 18:30 Dilaudid Wire Weaving Loom Setter - HAND SAMPLE MAKER 09/18/17 18:21 10 mg HAND SAMPLE MAKER [facility] Administration Protocol Cefazolin Sodium 1 gm/ 50 mls @ 100 mls/hr 09/11/17 22:00 09/12/17 09:32 Dextrose IVPB 100 mls/hr BID [facility] Administration Sodium Chloride 1,000 mls @ 75 mls/hr 09/11/17 18:45 09/11/17 20:30 Normal Saline - IV 75 mls/hr ASDIR [facility] Administration Insulin Aspart 1 vial 09/11/17 19:00 09/12/17 06:26 Novolog Vial Sliding Scale - SQ 4 units TIDAC [facility] Administration Protocol Metoprolol Tartrate 25 mg 09/11/17 22:00 09/12/17 09:31 Lopressor - PO 25 mg BID [facility] Administration Mupirocin 1 applic 09/11/17 22:00 Bactroban Ointment (For Decolonization) - NS 09/16/17 21:59 BID [facility] Non-Formulary Medication 1 drop 09/11/17 22:00 Brinzolamide [Azopt] OU TID [facility] Non-Formulary Medication 95 unit 09/12/17 10:00 Insulin Glargine,Hum.Rec.Anlog [Toujeo Solostar] SQ DAILY [facility] Ofloxacin 1 drop 09/11/17 22:00 09/12/17 06:25 Ocuflox 0.3% Eye Drops - OU 1 drop TID [facility] Administration Ondansetron HCl 4 mg 09/11/17 18:21 Zofran Injection IVPUSH Q4H PRN NAUSEA AND/OR VOMITING Ondansetron HCl 4 mg 09/11/17 18:35 Zofran Injection IVPUSH Q8H PRN NAUSEA Ranitidine HCl 150 mg 09/12/17 10:00 09/12/17 11:15 Zantac - PO 150 mg DAILY [facility] Administration Senna 1 tab 09/12/17 10:00 09/12/17 11:15 Senna - PO 1 tab DAILY [facility] Administration ASSESSMENT/PLAN: 66yo M with PMHx of CAD, DM, DOMINIK who arrived from PACU from a C2-T2 laminectomies and posterior fusion by Dr Tinoco. NEURO -C2-T2 laminectomy & fusion Post op day 1 -C collar in place -Pain control with HAND SAMPLE MAKER dilaudid -follow up neuro sx reccs -monitor drain output -rehab/physical therapy PULM -incentive spirometry -CPAP at night for sleep apnea -hx of DOMINIK -O2 supplementation CV -Latest cath in 2013 shows 60% RCA stenosis as per chart. -ASA -cardio on board -Hydralazine 75mg TID -Lopressor 25 BID -Norvasc 10 -monitor BP ENDORCINE -BGM -ISS -Metformin held -Hgb A1c 6.3 -Gabapentin EXTREMITIES -L Great toe wound -likely diabetic foot -podiatry consulted -chronic UTI's -U/A negative -asymptomatic -ID consulted FEN -NS @ 75ml/hour -WNL -Diabetic diet ICU monitoring Visit type - Emergency Visit Emergency Visit: Yes ED Registration Date: 09/11/17 Care time: The patient presented to the Emergency Department on the above date and was hospitalized for further evaluation of their emergent condition. - New Patient This patient is new to me today: Yes Date on this admission: 09/12/17 - Critical Care Critical Care patient: Yes Total Critical Care Time (in minutes): 40 Critical Care Statement: The care of this patient involved high complexity decision making to prevent further life threatening deterioration of the patient 's condition and/or to evaluate & treat vital organ system(s) failure or risk of failure.
--- NOTE | 2017-09-12 12:01 | PN ---
Teaching Attending Note Name of Resident: Judy Yeh ATTENDING PHYSICIAN STATEMENT I saw and evaluated the patient. I reviewed the resident's note and discussed the case with the resident. I agree with the resident's findings and plan as documented. SUBJECTIVE: Pt seen and examined in the ICU. c/o right hand pain, still with numbness in upper and lower extremities. No nausea. No flatus. OBJECTIVE: Vital Signs Period Temp Pulse Resp BP Sys/Kauffman Pulse Ox Last 24 Hr 98.2 F-99 F 78-88 12-20 144-173/53-76 96-100 Intake & Output 09/09/17 09/10/17 09/11/17 09/12/17 23:59 23:59 23:59 23:59 Intake Total 1800 925 Output Total 1220 510 Balance 580 415 Weight 121.79 kg Gen: NAD in cervical collar Heart: RRR Lung: decreased breath sounds at the bases Abd: soft, nontender Ext: no edema CBC, BMP 09/12/17 08:12 09/12/17 08:12 Active Medications Acetaminophen (Tylenol -) 650 mg PO Q4H PRN PRN Reason: FEVER Amlodipine Besylate (Norvasc -) 10 mg PO DAILY [facility] Last Admin: 09/12/17 09:31 Dose: 10 mg Aspirin (Ecotrin -) 81 mg PO DAILY [facility] Last Admin: 09/12/17 11:16 Dose: 81 mg Atorvastatin Calcium (Lipitor -) 10 mg PO [facility] Brimonidine Tartrate (Alphagan P 0.1% -) 1 drop OU TID [facility] Last Admin: 09/12/17 06:25 Dose: 1 drop Chlorhexidine Gluconate (Hibiclens For Decolonization -) 1 applic TP [facility] Docusate Sodium (Colace -) 200 mg PO DAILY [facility] Last Admin: 09/12/17 11:15 Dose: 200 mg Fentanyl (Sublimaze Injection -) 50 mcg IVPUSH [id number] PRN PRN Reason: PAIN-PACU ORDER X 4 DOSES ONLY Ferrous Sulfate (Feosol -) 325 mg PO DAILY@0800 [facility] Last Admin: 09/12/17 08:55 Dose: Not Given Folic Acid (Folic Acid -) 1 mg PO DAILY [facility] Last Admin: 09/12/17 09:31 Dose: 1 mg Gabapentin (Neurontin -) 600 mg PO TID [facility] Last Admin: 09/12/17 06:25 Dose: 600 mg Heparin Sodium (Porcine) (Heparin -) 5,000 unit SQ Q8H [facility] Last Admin: 09/12/17 06:24 Dose: 5,000 unit Hydralazine HCl (Apresoline -) 75 mg PO TID [facility] Last Admin: 09/12/17 06:25 Dose: 75 mg Hydromorphone HCl (Dilaudid Truck Packer -) 0 mg ELECTRICAL TECH/PROJECT MANAGER ELECTRICAL TECH/PROJECT MANAGER [facility]; Protocol Stop: 09/18/17 18:21 Last Admin: 09/11/17 18:30 Dose: 10 mg Cefazolin Sodium 1 gm/ (Dextrose) 50 mls @ 100 mls/hr IVPB BID [facility] Last Admin: 09/12/17 09:32 Dose: 100 mls/hr Sodium Chloride (Normal Saline -) 1,000 mls @ 75 mls/hr IV ASDIR [facility] Last Admin: 09/11/17 20:30 Dose: 75 mls/hr Insulin Aspart (Novolog Vial Sliding Scale -) 1 vial SQ TIDAC [facility]; Protocol Last Admin: 09/12/17 11:47 Dose: 2 units Metoprolol Tartrate (Lopressor -) 25 mg PO BID [facility] Last Admin: 09/12/17 09:31 Dose: 25 mg Mupirocin (Bactroban Ointment (For Decolonization) -) 1 applic NS BID [facility] Stop: 09/16/17 21:59 Non-Formulary Medication (Brinzolamide [Azopt]) 1 drop OU TID [facility] Non-Formulary Medication (Insulin Glargine,Hum.Rec.Anlog [Katherine Curtis]) 95 unit SQ DAILY [facility] Ofloxacin (Ocuflox 0.3% Eye Drops -) 1 drop OU TID [facility] Last Admin: 09/12/17 06:25 Dose: 1 drop Ondansetron HCl (Zofran Injection) 4 mg IVPUSH Q4H PRN PRN Reason: NAUSEA AND/OR VOMITING Ondansetron HCl (Zofran Injection) 4 mg IVPUSH Q8H PRN PRN Reason: NAUSEA Ranitidine HCl (Zantac -) 150 mg PO DAILY [facility] Last Admin: 09/12/17 11:15 Dose: 150 mg Senna (Senna -) 1 tab PO DAILY [facility] Last Admin: 09/12/17 11:15 Dose: 1 tab ASSESSMENT AND PLAN: Cervical Spinal Stenosis s/p C2-T2 Laminectomies/Posterior Fusions CAD Aortic Stenosis s/p AVR HTN DM CKD DOMINIK Toe Ulcer - neuro checks - pain control - monitor drain output - incentive spirometry - monitor urine output, creatinine - PO per surgery - CPAP at night - rehab/PT - DVR prophylaxis
[2017-09-12] MEDS ORDERED: CLOPIDOGREL BISULFATE 75 MG TABLET (FP) PO ONE (12:47)
--- NOTE | 2017-09-12 12:53 | PN ---
Progress Note (short form) - Note Progress Note: Pt with complaints of right upper extremity pain, sensitivity to touch and decreased strength. Left hand with less pain/weakness. These findings are unchanged from baseline. He is non-ambulatory, in the past he was able to stand for transfers. Vital Signs Period Temp Pulse Resp BP Sys/Kauffman Pulse Ox Last 24 Hr 97.8 F-99 F 78-88 12-20 144-173/53-76 100-100 KARYNA-130ml serosangrenous zimmerman-450ml dark yellow urine GEN: A&0x3 CV: RRR Lungs: CTA b/l anteriorly ABD: soft, non-distended, non-distended Back: dressing intact. KARYNA removed without difficulty UE: right hand weakness, office administration instructor strength 2/5. 2/5 flexion/extension. Left hand 4/ 5 office administration instructor strength, 5/5 flexion/extension. LE: 5/5 dorsi/plantar/EHL flexion b/l. CBC, BMP 09/12/17 08:12 09/12/17 08:12 A/P: 67 yo male s/p exploration of spinal fusion, C2-T2 laminectomies and C7-T1 osteotomies, deformity correction and C2-T2 posterior fusion. D/w Dr. Tinoco, drain removed today and may resume aspirin/plavix Clears and advance as tolerated Continue MASTER LAY OUT SPECIALIST/will add valium for pain relief Continue zimmerman and remove in the am
--- NOTE | 2017-09-12 13:11 | PN ---
Progress Note (short form) - Note Progress Note: Subjective: The patient was seen and examined at the bedside he has no complaints at this time C-collar in place Current Medications Generic Name Dose Route Start Last Admin Trade Name Fregaby PRN Reason Stop Dose Admin Acetaminophen 650 mg 09/11/17 18:35 Tylenol - PO Q4H PRN FEVER Amlodipine Besylate 10 mg 09/12/17 10:00 09/12/17 09:31 Norvasc - PO 10 mg DAILY [facility] Administration Aspirin 81 mg 09/12/17 10:00 09/12/17 11:16 Ecotrin - PO 81 mg DAILY [facility] Administration Atorvastatin Calcium 10 mg 09/12/17 22:00 Lipitor - PO HS [facility] Brimonidine Tartrate 1 drop 09/11/17 22:00 09/12/17 14:11 Alphagan P 0.1% - OU 1 drop TID [facility] Administration Chlorhexidine Gluconate 1 applic 09/12/17 22:00 Hibiclens For Decolonization - TP HS [facility] Clopidogrel Bisulfate 75 mg 09/13/17 10:00 Plavix - PO DAILY [facility] Docusate Sodium 200 mg 09/12/17 10:00 09/12/17 11:15 Colace - PO 200 mg DAILY [facility] Administration Ferrous Sulfate 325 mg 09/12/17 08:00 09/12/17 08:55 Feosol - PO Not Given DAILY@0800 [facility] Folic Acid 1 mg 09/12/17 10:00 09/12/17 09:31 Folic Acid - PO 1 mg DAILY [facility] Administration Gabapentin 600 mg 09/11/17 22:00 09/12/17 14:12 Neurontin - PO 600 mg TID [facility] Administration Heparin Sodium (Porcine) 5,000 unit 09/12/17 06:00 09/12/17 14:12 Heparin - SQ 5,000 unit Q8H [facility] Administration Hydralazine HCl 75 mg 09/11/17 22:00 09/12/17 14:11 Apresoline - PO 75 mg TID [facility] Administration Hydromorphone HCl 0 mg 09/11/17 18:30 09/11/17 18:30 Dilaudid Director Learning And Development - PINION AND WHEEL TRUER 09/18/17 18:21 10 mg PINION AND WHEEL TRUER [facility] Administration Protocol Sodium Chloride 1,000 mls @ 40 mls/hr 09/12/17 15:29 09/12/17 15:30 Normal Saline - IV 40 mls/hr ASDIR [facility] Administration Piperacillin Sod/Tazobactam 50 mls @ 100 mls/hr 09/12/17 18:00 Sod 2.25 gm/ Dextrose IVPB Q8H-IV [facility] Protocol Insulin Aspart 1 vial 09/11/17 19:00 09/12/17 16:39 Novolog Vial Sliding Scale - SQ 2 units TIDAC [facility] Administration Protocol Metoprolol Tartrate 25 mg 09/11/17 22:00 09/12/17 09:31 Lopressor - PO 25 mg BID [facility] Administration Mupirocin 1 applic 09/12/17 22:00 Bactroban Ointment (For Decolonization) - NS 09/17/17 21:59 BID ELENA Non-Formulary Medication 1 drop 09/11/17 22:00 Brinzolamide [Azopt] OU TID [facility] Non-Formulary Medication 95 unit 09/12/17 10:00 Insulin Glargine,Hum.Rec.Anlog [Toujeo Solostar] SQ DAILY [facility] Nystatin 1 applic 09/12/17 14:00 09/12/17 17:28 Nystop Powder - TP 15 gm DAILY [facility] Administration Ofloxacin 1 drop 09/11/17 22:00 09/12/17 14:14 Ocuflox 0.3% Eye Drops - OU 1 drop TID [facility] Administration Ondansetron HCl 4 mg 09/11/17 18:21 Zofran Injection IVPUSH Q4H PRN NAUSEA AND/OR VOMITING Ondansetron HCl 4 mg 09/11/17 18:35 Zofran Injection IVPUSH Q8H PRN NAUSEA Ranitidine HCl 150 mg 09/12/17 10:00 09/12/17 11:15 Zantac - PO 150 mg DAILY [facility] Administration Senna 1 tab 09/12/17 10:00 09/12/17 11:15 Senna - PO 1 tab DAILY [facility] Administration Objective: Vital Signs Period Temp Pulse Resp BP Sys/Kauffman Pulse Ox Last 24 Hr 97.8 F-99.5 F 78-91 12-171 144-173/53-76 98-100 Physical Exam: General: NAD, A&Ox3 HEENT: C-collar in place Lungs: CTA anteriorly Heart: RRR, S1S2 Abd: Soft, non-tender, non-distended. Large right abdominal discolored, slightly raised area Back: Dressing in place, c/d/i Ext: Right hand log driver strength 2/5, left hand log driver strength 4/5. Lower ext: dressing on left foot, c/d/i CBCD WBC 15.5 K/mm3 (4.0-10.0) H D 09/12/17 08:12 RBC 3.14 M/mm3 (4.00-5.60) L D 09/12/17 08:12 Hgb 8.1 GM/dL (11.7-16.9) L D 09/12/17 08:12 Hct 25.6 % (35.4-49) L D 09/12/17 08:12 MCV 81.7 fl (80-96) 09/12/17 08:12 MCHC 31.7 g/dl (32.0-35.9) L 09/12/17 08:12 RDW 15.1 % (11.9-15.9) 09/12/17 08:12 Plt Count 179 K/MM3 (134-434) D 09/12/17 08:12 MPV 8.5 fl (7.5-11.1) 09/12/17 08:12 CMP Sodium 140 mmol/L (136-145) 09/12/17 08:12 Potassium 5.2 mmol/L (3.5-5.1) H 09/12/17 08:12 Chloride 106 mmol/L (98-107) 09/12/17 08:12 Carbon Dioxide 26 mmol/L (21-32) 09/12/17 08:12 Anion Gap 8 (8-16) 09/12/17 08:12 BUN 59 mg/dL (7-18) H 09/12/17 08:12 Creatinine 4.9 mg/dL (0.7-1.3) H 09/12/17 08:12 Creat Clearance w eGFR 11.84 (>60) 09/12/17 08:12 Random Glucose 163 mg/dL (74-106) H D 09/12/17 08:12 Calcium 8.8 mg/dL (8.5-10.1) 09/12/17 08:12 Total Bilirubin 0.2 mg/dL (0.2-1.0) 09/12/17 08:12 AST 33 U/L (15-37) D 09/12/17 08:12 ALT 14 U/L (12-78) D 09/12/17 08:12 Alkaline Phosphatase 84 U/L (45-117) D 09/12/17 08:12 Total Protein 6.2 g/dl (6.4-8.2) L 09/12/17 08:12 Albumin 2.8 g/dl (3.4-5.0) L D 09/12/17 08:12 Microbiology 09/12/17 09:00 Foot - Left Gram Stain - Final Assessment: This is a 67 year old male with PMHx of HTN, DM, hyperlipidemia, obesity, sleep apnea, CKD, s/p RCA stent 05/30/10, s/p TAVR on 07/04/13, wheelchair bound, cardiac cath 06/17/13, who is s/p C2-T12 laminectomy and C7-T1 osteotomies, deformity correction and C2-T2 posterior fusion on 09/11. Plan: 1) S/p C2-T12 laminectomy and C7-T1 osteotomies, deformity correction and C2-T2 posterior fusion on 09/11 - KARYNA drain removed today - C-collar in place - Continue Dilaudid PINION AND WHEEL TRUER - Advance diet per surgery - Remove zimmerman tomorrow morning - Continue Zosyn for surgical prophylaxis per ID - Appreciate surgery consult 2) Left big toe wound - Eschar and drainage noted; drainage sent for culture - F/u X-ray left big toe - Betadine dressing placed, to be changed daily - Appreciate podiatry consult 3) CAD - Resume ASA - Resume Plavix (per cardiology, will need to look into clarifying indication for Plavix as outpatient, last stent 2010) - Appreciate cardiology consult 4) HTN - Continue Norvasc - Continue Hydralazine 5) DM - BGM ACHS - ISS ACHS - Patient does not have have Toujeo pen, discussed with pharmacy, will substitute with Levemir 6) Sleep apnea - Cpap at night 7) CKD - Cr slightly worse than baseline - Continue to trend 8) F/E/N: - Diabetic/sodium controlled diet - Hyperkalemia: Continue to trend, if worsens, will give kayexelate 9) Prophylaxis: - Chemical DVT prophylaxis per surgery 10) Dispo: - Requires continued inpatient care CODE STATUS: FULL CODE Visit type - Emergency Visit Emergency Visit: Yes ED Registration Date: 09/11/17 Care time: The patient presented to the Emergency Department on the above date and was hospitalized for further evaluation of their emergent condition. - New Patient This patient is new to me today: Yes Date on this admission: 09/12/17 - Critical Care Critical Care patient: Yes Total Critical Care Time (in minutes): 45 Critical Care Statement: The care of this patient involved high complexity decision making to prevent further life threatening deterioration of the patient 's condition and/or to evaluate & treat vital organ system(s) failure or risk of failure.
--- NOTE | 2017-09-12 14:47 | CON.ID ---
Consult Consult Specialty:: infectious diseases Reason for Consultation:: r/o uti. leukocytosis - History of Present Illness Chief Complaint: numbness both legs and arms History of Present Illness: 66 year old male with a PMH of HTN, DM II, HLD, obesity, sleep apnea with CPAP machine, CKD, . He is S/P an RCA stent 05/30/10. He had aortic stenosis and received a transapical TAVR on 07/04/13 at [facility]. He is wheelchair bound. Last Cardiac Cath 06/17/13 patent RCA stent, 60% stenosis to prox left circ. patient is post op from surgery of exploration of spinal fusion, C2-T2 laminectomies and C7-T1 osteotomies, deformity correction and C2-T2 posterior fusion. post op now patient is stable and his qing has been removed he is still c/o of numbness in the legs and arms - History Source History Provided By: Patient, Medical Record Limitations to Obtaining History: No Limitations - Past Medical History Cardio/Vascular: Yes: AFIB, CHF, HTN, Other (TAVR) Pulmonary: Yes: COPD, Sleep Apnea Gastrointestinal: Yes: GERD, Other (gastroparesis) Renal/: Yes: Renal Inusuff Musculoskeletal: Yes: Chronic low back pain, Paraplegia Endocrine: Yes: Diabetes Mellitus - Alcohol/Substance Use Hx Alcohol Use: No - Smoking History Smoking history: Former smoker Have you smoked in the past 12 months: No - Social History History of Recent Travel: No Home Medications - Allergies Allergies/Adverse Reactions: Allergies Allergy/AdvReac Type Severity Reaction Status Date / Time furosemide [From Lasix] Allergy Verified 09/11/17 12:33 latex Allergy Verified 09/11/17 12:33 - Home Medications Home Medications: Ambulatory Orders Amlodipine Besylate 10 mg PO DAILY 07/08/17 Cholecalciferol (Vitamin D3) [Vitamin D3] 2,000 unit PO DAILY 07/08/17 Docusate Sodium 200 mg PO DAILY 07/08/17 Gabapentin 600 mg PO TID 07/08/17 Hydralazine HCl 75 mg PO TID 07/08/17 Hydrochlorothiazide 25 mg PO DAILY 07/08/17 Metoprolol Tartrate 25 mg PO BID 07/08/17 Ranitidine [Zantac -] 150 mg PO DAILY 07/08/17 Sennosides [Senna] 8.6 mg PO DAILY 07/08/17 Simvastatin 20 mg PO DAILY 07/08/17 Brimonidine Tartrate [Alphagan P 0.1% -] 1 drop OU TID 07/10/17 Brinzolamide [Azopt] 1 drop OU TID 07/10/17 Ofloxacin 0.3% Ophth Soln [Ocuflox -] 1 drop OU TID 07/10/17 Insulin Sliding Scale [Novolog Vial Sliding Scale -] 0 units SQ ACHS 07/16/17 Aspirin [Ecotrin] 81 mg PO DAILY 09/06/17 Clopidogrel Bisulfate [Plavix] 75 mg PO DAILY 09/06/17 Insulin Glargine,Hum.rec.anlog [Toujeo Solostar] 95 unit SQ DAILY 09/06/17 Review of Systems - Review of Systems Constitutional: reports: No Symptoms Eyes: reports: No Symptoms HENT: reports: No Symptoms Neck: reports: Tenderness Cardiovascular: reports: No Symptoms Respiratory: reports: No Symptoms Gastrointestinal: reports: No Symptoms Genitourinary: reports: No Symptoms Musculoskeletal: reports: No Symptoms Integumentary: reports: Wound Neurological: reports: Numbness Hematology/Lymphatic: reports: No Symptoms Psychiatric: reports: No Symptoms Physical Exam Vital Signs: Vital Signs Temperature 97.8 F 09/12/17 11:59 Pulse Rate 87 09/12/17 11:59 Respiratory Rate 14 09/12/17 11:59 Blood Pressure 170/66 09/12/17 11:59 O2 Sat by Pulse Oximetry (%) 100 09/12/17 13:48 Constitutional: Yes: Well Nourished, Calm, Mild Distress Eyes: Yes: Conjunctiva Clear Neck: Yes: Other (neck collar) Cardiovascular: Yes: Regular Rate and Rhythm Respiratory: Yes: Regular, CTA Bilaterally Gastrointestinal: Yes: Normal Bowel Sounds, Soft Musculoskeletal: Yes: Other Extremities: Yes: Other (contracted) Wound/Incision: Yes: Dressing Dry and Intact, Dressing Removed, Other (wound superficial ulcer on the left great toe) Neurological: Yes: Alert, Oriented Psychiatric: Yes: Alert, Oriented Labs: CBC, BMP 09/12/17 08:12 09/12/17 08:12 Imaging - Results Chest X-ray: Report Reviewed, Image Reviewed X-ray: Report Reviewed, Image Reviewed Assessment/Plan 67 yo male s/p exploration of spinal fusion, C2-T2 laminectomies and C7-T1 osteotomies, deformity correction and C2-T2 posterior fusion. r/o uti numbness leukocytosis Cervical Spinal Stenosis s/p C2-T2 Laminectomies/Posterior Fusions CAD Aortic Stenosis s/p AVR HTN DM CKD DOMINIK Toe Ulcer plan await for cx from the toe will start patient on abx due to h/o of chronic uti monitor closely for fever monitor wbc rest continue as per icu cc time 40 min
--- NOTE | 2017-09-12 16:26 | CON.CARD ---
Consult Consult Specialty:: Cariology Referred by:: Hospitalist Reason for Consultation:: Post op f/up - History of Present Illness Chief Complaint: s/p C2-T2 laminectomy History of Present Illness: 67 year old male with a PMH of HTN, DM, HLD, obesity and CRI CAD S/P an RCA stent 05/30/10. Aortic stenosis s/p transapical TAVR on 07/04/13 at [facility]. Last Cardiac Cath 06/17/13 patent RCA stent now s/p C2-T2 laminectomy. Pt seen and examined in the ICU in nad. awake and alert. denies any chest pain or sob. No palpitations ECHO 07/09/17 Normal LV/RV systolic function, s/p bio AVR, no AR - History Source History Provided By: Patient, Medical Record Limitations to Obtaining History: No Limitations - Past Medical History Cardio/Vascular: Yes: AFIB, Aortic Stenosis, CHF, HTN, Other (TAVR) Pulmonary: Yes: COPD, Sleep Apnea Gastrointestinal: Yes: GERD, Other (gastroparesis) Renal/: Yes: Renal Inusuff Musculoskeletal: Yes: Chronic low back pain, Paraplegia Endocrine: Yes: Diabetes Mellitus - Past Surgical History Past Surgical History: Yes: Valve Replacement - Alcohol/Substance Use Hx Alcohol Use: No - Smoking History Smoking history: Former smoker Have you smoked in the past 12 months: No - Social History History of Recent Travel: No Home Medications - Allergies Allergies/Adverse Reactions: Allergies Allergy/AdvReac Type Severity Reaction Status Date / Time furosemide [From Lasix] Allergy Verified 09/11/17 12:33 latex Allergy Verified 09/11/17 12:33 - Home Medications Home Medications: Ambulatory Orders Amlodipine Besylate 10 mg PO DAILY 07/08/17 Cholecalciferol (Vitamin D3) [Vitamin D3] 2,000 unit PO DAILY 07/08/17 Docusate Sodium 200 mg PO DAILY 07/08/17 Gabapentin 600 mg PO TID 07/08/17 Hydralazine HCl 75 mg PO TID 07/08/17 Hydrochlorothiazide 25 mg PO DAILY 07/08/17 Metoprolol Tartrate 25 mg PO BID 07/08/17 Ranitidine [Zantac -] 150 mg PO DAILY 07/08/17 Sennosides [Senna] 8.6 mg PO DAILY 07/08/17 Simvastatin 20 mg PO DAILY 07/08/17 Brimonidine Tartrate [Alphagan P 0.1% -] 1 drop OU TID 07/10/17 Brinzolamide [Azopt] 1 drop OU TID 07/10/17 Ofloxacin 0.3% Ophth Soln [Ocuflox -] 1 drop OU TID 07/10/17 Insulin Sliding Scale [Novolog Vial Sliding Scale -] 0 units SQ ACHS 07/16/17 Aspirin [Ecotrin] 81 mg PO DAILY 09/06/17 Clopidogrel Bisulfate [Plavix] 75 mg PO DAILY 09/06/17 Insulin Glargine,Hum.rec.anlog [Toujeo Solostar] 95 unit SQ DAILY 09/06/17 Family Disease History - Family Disease History Family History: Denies Review of Systems - Review of Systems Constitutional: reports: Weakness Eyes: denies: No Symptoms, Blind Spots, Blurred Vision, Double Vision, Eye Pain , Floaters, Photophobia, Recent Change in Vision, Other Cardiovascular: denies: No Symptoms, Chest Pain, Edema, Palpitations, Shortness of Breath, Other Respiratory: denies: No Symptoms, Cough, Exercise Intolerance, Hemoptysis, Orthopnea, PND, Snoring, SOB, SOB on Exertion, Wheezing, Other Gastrointestinal: denies: No Symptoms, Abdominal Pain, Bloating, Constipation, Diarrhea, Dysphagia, Indigestion, Melena, Nausea, Rectal Bleeding, Vomiting, Vomiting Blood, Other Genitourinary: denies: No Symptoms, Burning, Discharge, Dysuria, Flank Pain, Frequency, Hematuria, Incontinence, Lesions, Menses, Pain, Testicular Mass, Testicular Pain, Testicular Swelling, Urgency, Vaginal Bleeding, Other Breasts: denies: No Symptoms Reported, See HPI, Breast Implants, Discharge from Nipple, Lumps, Pain, Skin Changes, Other Musculoskeletal: reports: Decreased ROM, Muscle Weakness Integumentary: denies: No Symptoms, Blister, Bruising, Change in Color, Eczema, Erythema, Incision, Lesions, Lump, Pallor, Pruritis, Rash, Wound, Other Neurological: reports: Pre-Existing Deficit - Risk Factors Known Risk Factors: Yes: Hypercholesterolemia, Hypertension, Physical Inactivity Vital Signs: Vital Signs Temperature 99.5 F 09/12/17 16:00 Pulse Rate 83 09/12/17 16:00 Respiratory Rate 171 H 09/12/17 16:00 Blood Pressure 154/64 09/12/17 16:00 O2 Sat by Pulse Oximetry (%) 98 09/12/17 16:07 Constitutional: Yes: No Distress, Calm, Obese Eyes: Yes: Conjunctiva Clear, EOM Intact, PERRL Respiratory: Yes: Regular, Diminished. No: Rales, Rhonchi, SOB, Wheezes Gastrointestinal: Yes: Normal Bowel Sounds, Soft. No: Distention, Tenderness Cardiovascular: Yes: Regular Rate and Rhythm. No: Bradycardia, Tachycardia, Pulse Irregular, Gallop, Rub, Varicosities JVD: No Carotid Bruit: No PMI: Non-Displaced Heart Sounds: Yes: S1, S2. No: Split S2, S3, S4, Clicks, Gallop, Rub, Bruit Murmur: Yes: Systolic Murmur, Grade 2. No: Diastolic Murmur Musculoskeletal: Yes: Muscle Weakness Peripheral Pulses WNL: Yes Neurological: Yes: Alert, Oriented Psychiatric: Yes: Alert, Oriented - Other Data Labs, Other Data: CBC, BMP 09/12/17 08:12 09/12/17 08:12 ekg not in chart Echo: Report Reviewed Prior Cardiac Procedures: PTCA with Stent Imaging - Results Chest X-ray: Report Reviewed, Image Reviewed EKG: Report Reviewed, Image Reviewed Other: Report Reviewed, Image Reviewed (tele-nsr, pvcs, no sig arrhythmias) Assessment/Plan 67 year old male with a PMH of HTN, DM, HLD, obesity and CRI CAD S/P an RCA stent 05/30/10. Aortic stenosis s/p transapical TAVR on 07/04/13 at [facility]. Last Cardiac Cath 06/17/13 patent RCA stent now s/p C2-T2 laminectomy. Post op cardiac f/up -pt tolerated procedure well from a cardiac standpoint -resume ASA 81mg daily when safe from a surgical standpoint -need to clarify indication for Plavix as last stent 2010, and TAVR 2013, may not require it from a cardiac standpoint, this can be determined as outpatient as he has been on it recently -HTN control with home meds with target BP at the discretion of neurosurgery and ICU -ECHO 07/09/17 Normal LV/RV systolic function, s/p bio AVR, no AR -No additional inpatient cardiac work up needed at this point -plan for outpatient f/up Please call with any additional questions
[2017-09-12] MEDS: NYSTATIN POWDER 100,000 UNITS/GM - 15 GM TOPICAL POWDER TP SCH (17:28)
[2017-09-12] MEDS ORDERED: PIPERACILLIN/TAZOBACTAM 2.25 GM VIAL IVPB ONE (17:45)
[2017-09-12] MEDS: PIPERACILLIN/TAZOB 2.25 GM 2.25 GM in DEXTROSE 5%-WATER - 50 ML IVPB SCH (18:03)
[2017-09-12] MEDS: HYDROmorphone *PCA* 10MG/50ML DISP.SYRIN PCA SCH (18:30)
--- NOTE | 2017-09-12 18:34 | PN ---
Progress Note (short form) - Note Progress Note: S: Pt. in bed c/o pain in arm and hand O: VAS 10/10, but decreases to 6/10 after NEWS PRODUCTION ASSISTANT use A/P: POD #1 s/p exploration of spinal fusion 1. Continue NEWS PRODUCTION ASSISTANT use. 2. no anesthetic complications
[2017-09-12] MEDS: MUPIROCIN 2% TOPICAL OINTMENT FOR DECOLONIZATION NS SCH (21:09)
[2017-09-12] MEDS: CHLORHEXIDINE GLUCONATE 4% CLEANSER FOR DECOLONIZATION TP SCH (21:11)
[2017-09-12] MEDS: ATORVASTATIN CA 10 MG TABLET (FP) PO SCH (21:12)
[2017-09-13] MEDS ORDERED: PIPERACILLIN/TAZOBACTAM 2.25 GM VIAL IVPB ONE ×3 (02:06→16:51)
[2017-09-13] MEDS ORDERED: DEXTROSE 5%-WATER - 50 ML IVPB ONE ×3 (02:06→16:51)
[2017-09-13] MEDS: ACETAMINOPHEN 325 MG TABLET (FP) PO PRN ×3 (02:25→21:57)
[2017-09-13] MEDS: PIPERACILLIN/TAZOB 2.25 GM 2.25 GM in DEXTROSE 5%-WATER - 50 ML IVPB SCH ×3 (02:25→18:27)
[2017-09-13] MEDS: BRIMONIDINE TARTRATE 0.1% OPHTHALMIC 5 ML BOTTLE OU SCH ×3 (06:20→22:13)
[2017-09-13] MEDS ORDERED: PT OWN MED DRAWER 7, Y5N ONE ×5 (06:20→22:12)
[2017-09-13] MEDS: OFLOXACIN 0.3% OPHTHALMIC SOLUTION 5 ML BOTTLE OU SCH ×3 (06:20→22:13)
[2017-09-13] MEDS: HEPARIN NA (PORCINE) 5,000 UNITS/ML 1ML VIAL SQ SCH ×3 (06:21→21:58)
[2017-09-13] MEDS: hydrALAZINE HCL 25 MG TABLET (FP) PO SCH ×3 (06:21→21:57)
[2017-09-13] MEDS: GABAPENTIN 300 MG CAPSULE (FP) PO SCH ×3 (06:21→21:57)
[2017-09-13] MEDS: INSULIN (LEVEMIR) 100 UNITS/ML UNITS SQ SCH (06:23)
[2017-09-13] MEDS: INSULIN SLIDING SCALE (NOVOLOG) 1 VIAL SQ SCH ×3 (06:24→16:44)
[2017-09-13 06:25] LABS: BASO % 0.4 % (0-2.0); EOS % 0.1 % (0-4.5); HEMATOCRIT 22.5 % (35.4-49); HEMOGLOBIN 7.2 GM/dL (11.7-16.9); MCH 26.3 pg (25.7-33.7); MCHC 32.1 g/dl (32.0-35.9); MEAN PLT VOLUME 9.3 fl (7.5-11.1); MONO % 14.1 % (3.8-10.2); NEUT % 79.4 % (42.8-82.8); PLATELET COUNT 163 K/MM3 (134-434); RBC 2.74 M/mm3 (4.00-5.60); RDW 15.4 % (11.9-15.9)
[2017-09-13 06:54] LABS: ALBUMIN 2.5 g/dl (3.4-5.0); ALK PHOS 72 U/L (45-117); ANION GAP 7 (8-16); BILIRUBIN,TOTAL 0.3 mg/dL (0.2-1.0); BLOOD UREA NITROGEN 54 mg/dL (7-18); CALCIUM 8.3 mg/dL (8.5-10.1); CHLORIDE 106 mmol/L (98-107); CO2 26 mmol/L (21-32); GLUCOSE,RANDOM 156 mg/dL (74-106); MAGNESIUM 1.8 mg/dL (1.8-2.4); PHOSPHOROUS 4.6 mg/dL (2.5-4.9); POTASSIUM 4.9 mmol/L (3.5-5.1); SGOT/AST 28 U/L (15-37); SGPT/ALT 13 U/L (12-78); SODIUM 139 mmol/L (136-145); TOT PROT 5.5 g/dl (6.4-8.2)
--- NOTE | 2017-09-13 08:02 | PN ---
Progress Note (short form) - Note Progress Note: Surgery POD #2 C2-T2 decompression and fusion. Patient seen and examined at bedside with Dr. Tinoco c/o Right Hand pain between the thumb and index finger which is unchanged from his pre-op symptoms. His LE movement has already improved and he denies any CP, N/V, or chills. Vital Signs Temp 97.0 F L 09/13/17 14:00 Pulse 76 09/13/17 14:00 Resp 18 09/13/17 14:00 BP 143/58 09/13/17 14:00 Pulse Ox 98 09/13/17 14:18 Intake & Output 18 09/13/17 09/13/17 23:59 11:59 23:59 Intake Total 1227.5 1116 Output Total 1795 Balance -567.5 1116 Weight 268 lb 8.368 oz Intake: IV 777.5 466 Normal Saline - 1,000 ml 140 466 @ 40 mls/hr IV ASDIR ELENA Rx#:[id number] Normal Saline - 1,000 ml 637.5 @ 75 mls/hr IV ASDIR ELENA Rx#:[id number] IVPB 150 150 Oral 300 500 Output: Drainage 45 Upper Medial Back 45 Urine 1750 Joshua 1750 Other: Voiding Method Indwelling Catheter Indwelling Catheter Bowel Movement No No Weight Measurement Method [facility] CBC, BMP 09/13/17 05:24 09/13/17 05:24 PE: A&Ox3,NAD unlabored resp on face mask right UE sensation to light touch intact throughout, sensitive to touch at the web space between thumb and index, able to flex and extend wrist and flex and extend all fingers, riveter strength weak at 2/5. Left UE sensation to light touch intact throughout, able to flex and extend at wrist and all digits, riveter strength 3/5 B/L LE compartments soft, supple and non-tender. Patient able to lift leg off bed and dorsi and plantar flex. Problem List - Problems (1) Cervical myelopathy Assessment/Plan: POD #2 multilevel cervical decompression and fusion with post op anemia. We discussed the risk, benefits and alternatives of blood transfusion with patient and patient refused blood products at this time. Patient is stable at this time and we will reassess after repeat cbc and continued clinical checks and revisit as needed. 1) Rpt CBC now 2) Conintue DVT prophylaxis 3) Maintain c-collar 4) OOB as tolerated to chair 5) Trend labs 6) Continue current multi-specialty management approach. Code(s): G95.9 - DISEASE OF SPINAL CORD, UNSPECIFIED
[2017-09-13 08:06] LABS: CREATININE 4.3 mg/dL (0.7-1.3)
[2017-09-13] MEDS: FERROUS SO4 325 MG TABLET (FP) PO SCH (08:48)
[2017-09-13] MEDS: ASPIRIN COATED 81 MG TABLET.EC PO SCH (09:09)
[2017-09-13] MEDS: DOCUSATE SODIUM 100 MG CAPSULE (FP) PO SCH (09:09)
[2017-09-13] MEDS: FOLIC ACID 1 MG TABLET (FP) PO SCH (09:09)
[2017-09-13] MEDS: NYSTATIN POWDER 100,000 UNITS/GM - 15 GM TOPICAL POWDER TP SCH (09:10)
[2017-09-13] MEDS: SENNOSIDES 8.6MG TABLET (FP) PO SCH (09:10)
[2017-09-13] MEDS: RANITIDINE HCL 150 MG TABLET (FP) PO SCH (09:10)
[2017-09-13] MEDS: METOPROLOL TARTRATE 25 MG TABLET (FP) PO SCH ×2 (09:10→21:57)
[2017-09-13] MEDS: amLODIPine BESYLATE 10 MG TABLET (FP) PO SCH (09:10)
[2017-09-13] MEDS ORDERED: AMMONIUM LACTATE 12% LOTION 225 GM BOTTLE TP PRN (09:41)
--- NOTE | 2017-09-13 09:43 | PN ---
Progress Note (short form) - Note Progress Note: FUV left big toe. Patient alert and oriented today. Currently refusing transfusion. vss, Tmax 97.2 wbc=16.0, +improved wound appearance today on left big toe, -cellulitis, - drainage, +coag + staph on wound culture grade 1 ulceration r/o om Heel pads b/l. Santyl daily to left big toe. Ammonium lactate BID to exposed lower extremities. Will follow. Xray left foot.
[2017-09-13] MEDS ORDERED: CLOPIDOGREL BISULFATE 75 MG TABLET (FP) PO SCH (10:00)
[2017-09-13] MEDS ORDERED: COLLAGENASE CLOSTRIDIUM HIST. 30 GRAMS TUBE TP SCH (10:00)
[2017-09-13] MEDS: MUPIROCIN 2% TOPICAL OINTMENT FOR DECOLONIZATION NS SCH ×2 (10:00→21:58)
--- NOTE | 2017-09-13 12:36 | PN ---
Teaching Attending Note Name of Resident: Judy Yeh ATTENDING PHYSICIAN STATEMENT I saw and evaluated the patient. I reviewed the resident's note and discussed the case with the resident. I agree with the resident's findings and plan as documented. SUBJECTIVE: Pt seen and examined in the ICU. Pain and numbness slightly improved. OBJECTIVE: Vital Signs Period Temp Pulse Resp BP Sys/Kauffman Pulse Ox Last 24 Hr 97.0 F-101.5 F 74-92 14-19 125-164/44-74 95-100 Intake & Output 09/10/17 09/11/17 09/12/17 09/13/17 23:59 23:59 23:59 23:59 Intake Total 1800 2152.5 1116 Output Total 1220 2305 Balance 580 -152.5 1116 Weight 121.79 kg 121.8 kg Gen: NAD in cervical collar Heart: RRR Lung: decreased breath sounds at the bases Abd: soft, nontender Ext: no edema Drain: serosanguinous CBC, BMP 09/13/17 05:24 09/13/17 05:24 Active Medications Acetaminophen (Tylenol -) 650 mg PO Q4H PRN PRN Reason: FEVER Last Admin: 09/13/17 02:25 Dose: 650 mg Amlodipine Besylate (Norvasc -) 10 mg PO DAILY [facility] Last Admin: 09/13/17 09:10 Dose: 10 mg Aspirin (Ecotrin -) 81 mg PO DAILY [facility] Last Admin: 09/13/17 09:09 Dose: 81 mg Atorvastatin Calcium (Lipitor -) 10 mg PO HS [facility] Last Admin: 09/12/17 21:12 Dose: 10 mg Brimonidine Tartrate (Alphagan P 0.1% -) 1 drop OU TID [facility] Last Admin: 09/13/17 06:20 Dose: 1 drop Chlorhexidine Gluconate (Hibiclens For Decolonization -) 1 applic TP HS [facility] Last Admin: 09/12/17 21:11 Dose: 1 applic Clopidogrel Bisulfate (Plavix -) 75 mg PO DAILY [facility] Last Admin: 09/13/17 09:10 Dose: 75 mg Collagenase (Santyl -) 1 applic TP DAILY [facility] Last Admin: 09/13/17 11:02 Dose: 1 applic Docusate Sodium (Colace -) 200 mg PO DAILY [facility] Last Admin: 09/13/17 09:09 Dose: 200 mg Ferrous Sulfate (Feosol -) 325 mg PO DAILY@0800 [facility] Last Admin: 09/13/17 08:48 Dose: 325 mg Folic Acid (Folic Acid -) 1 mg PO DAILY [facility] Last Admin: 09/13/17 09:09 Dose: 1 mg Gabapentin (Neurontin -) 600 mg PO TID [facility] Last Admin: 09/13/17 06:21 Dose: 600 mg Heparin Sodium (Porcine) (Heparin -) 5,000 unit SQ Q8H [facility] Last Admin: 09/13/17 06:21 Dose: 5,000 unit Hydralazine HCl (Apresoline -) 75 mg PO TID [facility] Last Admin: 09/13/17 06:21 Dose: 75 mg Hydromorphone HCl (Dilaudid Internet Manager -) 0 mg DIGITAL EDITOR DIGITAL EDITOR [facility]; Protocol Stop: 09/18/17 18:21 Last Admin: 09/12/17 18:30 Dose: Not Given Sodium Chloride (Normal Saline -) 1,000 mls @ 40 mls/hr IV ASDIR [facility] Last Admin: 09/12/17 15:30 Dose: 40 mls/hr Piperacillin Sod/Tazobactam (Sod 2.25 gm/ Dextrose) 50 mls @ 100 mls/hr IVPB Q8H-IV [facility]; Protocol Last Admin: 09/13/17 09:11 Dose: 100 mls/hr Insulin Aspart (Novolog Vial Sliding Scale -) 1 vial SQ TIDAC [facility]; Protocol Last Admin: 09/13/17 11:03 Dose: 2 units Insulin Detemir (Levemir Vial) 95 units SQ AM [facility] Last Admin: 09/13/17 06:23 Dose: 95 units Lactic Acid (Lac-Hydrin 12) 1 applic TP BID PRN PRN Reason: xerosis Last Admin: 09/13/17 11:04 Dose: 1 applic Metoprolol Tartrate (Lopressor -) 25 mg PO BID [facility] Last Admin: 09/13/17 09:10 Dose: 25 mg Mupirocin (Bactroban Ointment (For Decolonization) -) 1 applic NS BID [facility] Stop: 09/17/17 21:59 Last Admin: 09/13/17 10:00 Dose: 1 applic Non-Formulary Medication (Brinzolamide [Azopt]) 1 drop OU TID [facility] Nystatin (Nystop Powder -) 1 applic TP DAILY [facility] Last Admin: 09/13/17 09:10 Dose: 1 applic Ofloxacin (Ocuflox 0.3% Eye Drops -) 1 drop OU TID [facility] Last Admin: 09/13/17 06:20 Dose: 1 drop Ondansetron HCl (Zofran Injection) 4 mg IVPUSH Q4H PRN PRN Reason: NAUSEA AND/OR VOMITING Ondansetron HCl (Zofran Injection) 4 mg IVPUSH Q8H PRN PRN Reason: NAUSEA Ranitidine HCl (Zantac -) 150 mg PO DAILY [facility] Last Admin: 09/13/17 09:10 Dose: 150 mg Senna (Senna -) 1 tab PO DAILY [facility] Last Admin: 09/13/17 09:10 Dose: 1 tab ASSESSMENT AND PLAN: Cervical Spinal Stenosis s/p C2-T2 Laminectomies/Posterior Fusions CAD Aortic Stenosis s/p AVR HTN DM CKD DOMINIK Toe Ulcer - neuro checks - pain control - monitor drain output - incentive spirometry - monitor urine output, creatinine - PO per surgery - CPAP at night - rehab/PT - DVT prophylaxis
--- NOTE | 2017-09-13 12:43 | PN ---
Progress Note, Physician Chief Complaint: day 2 postop - Current Medication List Current Medications: Active Medications Acetaminophen (Tylenol -) 650 mg PO Q4H PRN PRN Reason: FEVER Last Admin: 09/13/17 02:25 Dose: 650 mg Amlodipine Besylate (Norvasc -) 10 mg PO DAILY [facility] Last Admin: 09/13/17 09:10 Dose: 10 mg Aspirin (Ecotrin -) 81 mg PO DAILY [facility] Last Admin: 09/13/17 09:09 Dose: 81 mg Atorvastatin Calcium (Lipitor -) 10 mg PO HS [facility] Last Admin: 09/12/17 21:12 Dose: 10 mg Brimonidine Tartrate (Alphagan P 0.1% -) 1 drop OU TID [facility] Last Admin: 09/13/17 06:20 Dose: 1 drop Chlorhexidine Gluconate (Hibiclens For Decolonization -) 1 applic TP [facility] Last Admin: 09/12/17 21:11 Dose: 1 applic Clopidogrel Bisulfate (Plavix -) 75 mg PO DAILY [facility] Last Admin: 09/13/17 09:10 Dose: 75 mg Collagenase (Santyl -) 1 applic TP DAILY [facility] Last Admin: 09/13/17 11:02 Dose: 1 applic Docusate Sodium (Colace -) 200 mg PO DAILY [facility] Last Admin: 09/13/17 09:09 Dose: 200 mg Ferrous Sulfate (Feosol -) 325 mg PO DAILY@0800 [facility] Last Admin: 09/13/17 08:48 Dose: 325 mg Folic Acid (Folic Acid -) 1 mg PO DAILY [facility] Last Admin: 09/13/17 09:09 Dose: 1 mg Gabapentin (Neurontin -) 600 mg PO TID [facility] Last Admin: 09/13/17 06:21 Dose: 600 mg Heparin Sodium (Porcine) (Heparin -) 5,000 unit SQ Q8H [facility] Last Admin: 09/13/17 06:21 Dose: 5,000 unit Hydralazine HCl (Apresoline -) 75 mg PO TID [facility] Last Admin: 09/13/17 06:21 Dose: 75 mg Hydromorphone HCl (Dilaudid Coal Trimmer Machine Operator -) 0 mg BENEFITS DIRECTOR BENEFITS DIRECTOR [facility]; Protocol Stop: 09/18/17 18:21 Last Admin: 09/12/17 18:30 Dose: Not Given Sodium Chloride (Normal Saline -) 1,000 mls @ 40 mls/hr IV ASDIR [facility] Last Admin: 09/12/17 15:30 Dose: 40 mls/hr Piperacillin Sod/Tazobactam (Sod 2.25 gm/ Dextrose) 50 mls @ 100 mls/hr IVPB Q8H-IV [facility]; Protocol Last Admin: 09/13/17 09:11 Dose: 100 mls/hr Insulin Aspart (Novolog Vial Sliding Scale -) 1 vial SQ TIDAC [facility]; Protocol Last Admin: 09/13/17 11:03 Dose: 2 units Insulin Detemir (Levemir Vial) 95 units SQ AM [facility] Last Admin: 09/13/17 06:23 Dose: 95 units Lactic Acid (Lac-Hydrin 12) 1 applic TP BID PRN PRN Reason: xerosis Last Admin: 09/13/17 11:04 Dose: 1 applic Metoprolol Tartrate (Lopressor -) 25 mg PO BID [facility] Last Admin: 09/13/17 09:10 Dose: 25 mg Mupirocin (Bactroban Ointment (For Decolonization) -) 1 applic NS BID [facility] Stop: 09/17/17 21:59 Last Admin: 09/13/17 10:00 Dose: 1 applic Non-Formulary Medication (Brinzolamide [Azopt]) 1 drop OU TID [facility] Nystatin (Nystop Powder -) 1 applic TP DAILY [facility] Last Admin: 09/13/17 09:10 Dose: 1 applic Ofloxacin (Ocuflox 0.3% Eye Drops -) 1 drop OU TID [facility] Last Admin: 09/13/17 06:20 Dose: 1 drop Ondansetron HCl (Zofran Injection) 4 mg IVPUSH Q4H PRN PRN Reason: NAUSEA AND/OR VOMITING Ondansetron HCl (Zofran Injection) 4 mg IVPUSH Q8H PRN PRN Reason: NAUSEA Ranitidine HCl (Zantac -) 150 mg PO DAILY [facility] Last Admin: 09/13/17 09:10 Dose: 150 mg Senna (Senna -) 1 tab PO DAILY [facility] Last Admin: 09/13/17 09:10 Dose: 1 tab - Objective Vital Signs: Vital Signs Temperature 97.0 F L 09/13/17 10:56 Pulse Rate 74 09/13/17 10:56 Respiratory Rate 18 05/31/18 10:56 Blood Pressure 139/56 05/31/18 10:56 O2 Sat by Pulse Oximetry (%) 99 09/13/17 10:08 Labs: CBC, BMP 09/13/17 05:24 09/13/17 05:24 Assessment/Plan Pain better controlled today with BENEFITS DIRECTOR use. Continue BENEFITS DIRECTOR
--- NOTE | 2017-09-13 14:05 | PN ---
Physical Exam: SUBJECTIVE: Patient seen and examined. Overnight: Temp 101.5. Cultures sent Today:He says his pain and numbness in b/l hands are improving but still in pain. No other complaints. Toe culture +coag + staph OBJECTIVE: Vital Signs Period Temp Pulse Resp BP Sys/Kauffman Pulse Ox Last 24 Hr 97.0 F-101.5 F 74-92 14-19 125-164/44-74 95-99 GEN: AAOx3, NAD, obese, C-collar in place, lying comfortably HEENT: PERRLA, EOMI CV: S1, S2, 3/6 R sided systolic murmur, RRR LUNG: Anterior breath sounds are clear to auscultation ABD: Obese, soft, NT, ND MSK: No edema, no erythema, has dried L great toe wound w/ dressing NEURO: CN 2-12 grossly intact, able to move all extremities. Laboratory Results - last 24 hr 09/11/17 09/12/17 09/12/17 11:46 16:34 18:29 WBC RBC Hgb Hct MCV MCH MCHC RDW Plt Count MPV Neutrophils % Lymphocytes % Monocytes % Eosinophils % Basophils % Nucleated RBC % Sodium Potassium Chloride Carbon Dioxide Anion Gap BUN Creatinine Creat Clearance w eGFR POC Glucometer [phone] Random Glucose Calcium Phosphorus Magnesium Total Bilirubin AST ALT Alkaline Phosphatase Total Protein Albumin Blood Type AB POSITIVE Antibody Screen Negative Crossmatch See Detail 09/13/17 09/13/17 09/13/17 05:24 05:24 11:02 WBC 16.0 H RBC 2.74 L Hgb 7.2 L D Hct 22.5 L MCV 82.0 MCH 26.3 MCHC 32.1 RDW 15.4 Plt Count 163 MPV 9.3 Neutrophils % 79.4 Lymphocytes % 6.0 L Monocytes % 14.1 H Eosinophils % 0.1 D Basophils % 0.4 Nucleated RBC % 0 Sodium 139 Potassium 4.9 Chloride 106 Carbon Dioxide 26 Anion Gap 7 L BUN 54 H Creatinine 4.3 H Creat Clearance w eGFR 13.76 POC Glucometer [phone] Random Glucose 156 H Calcium 8.3 L Phosphorus 4.6 Magnesium 1.8 Total Bilirubin 0.3 D AST 28 ALT 13 Alkaline Phosphatase 72 Total Protein 5.5 L Albumin 2.5 L Blood Type Antibody Screen Crossmatch Active Medications Generic Name Dose Route Start Last Admin Trade Name Freq PRN Reason Stop Dose Admin Acetaminophen 650 mg 09/11/17 18:35 09/13/17 02:25 Tylenol - PO 650 mg Q4H PRN Administration FEVER Amlodipine Besylate 10 mg 09/12/17 10:00 09/13/17 09:10 Norvasc - PO 10 mg DAILY ELENA Administration Aspirin 81 mg 09/12/17 10:00 09/13/17 09:09 Ecotrin - PO 81 mg DAILY ELENA Administration Atorvastatin Calcium 10 mg 09/12/17 22:00 09/12/17 21:12 Lipitor - PO 10 mg HS ELENA Administration Brimonidine Tartrate 1 drop 09/11/17 22:00 09/13/17 06:20 Alphagan P 0.1% - OU 1 drop TID ELENA Administration Chlorhexidine Gluconate 1 applic 09/12/17 22:00 09/12/17 21:11 Hibiclens For Decolonization - TP 1 applic HS ELENA Administration Clopidogrel Bisulfate 75 mg 09/13/17 10:00 09/13/17 09:10 Plavix - PO 75 mg DAILY ELENA Administration Collagenase 1 applic 09/13/17 10:00 09/13/17 11:02 Santyl - TP 1 applic DAILY ELENA Administration Docusate Sodium 200 mg 09/12/17 10:00 09/13/17 09:09 Colace - PO 200 mg DAILY ELENA Administration Ferrous Sulfate 325 mg 09/12/17 08:00 09/13/17 08:48 Feosol - PO 325 mg DAILY@0800 ELENA Administration Folic Acid 1 mg 09/12/17 10:00 09/13/17 09:09 Folic Acid - PO 1 mg DAILY ELENA Administration Gabapentin 600 mg 09/11/17 22:00 09/13/17 06:21 Neurontin - PO 600 mg TID ELENA Administration Heparin Sodium (Porcine) 5,000 unit 09/12/17 06:00 09/13/17 06:21 Heparin - SQ 5,000 unit Q8H ELENA Administration Hydralazine HCl 75 mg 09/11/17 22:00 09/13/17 06:21 Apresoline - PO 75 mg TID ELENA Administration Hydromorphone HCl 0 mg 09/11/17 18:30 09/12/17 18:30 Dilaudid Forensic Social Worker - ACCOUNT DEVELOPMENT SPECIALIST 09/18/17 18:21 Not Given ACCOUNT DEVELOPMENT SPECIALIST ELENA Protocol Sodium Chloride 1,000 mls @ 40 mls/hr 09/12/17 15:29 09/12/17 15:30 Normal Saline - IV 40 mls/hr ASDIR ELENA Administration Piperacillin Sod/Tazobactam 50 mls @ 100 mls/hr 09/12/17 18:00 09/13/17 09:11 Sod 2.25 gm/ Dextrose IVPB 100 mls/hr Q8H-IV ELENA Administration Protocol Insulin Aspart 1 vial 09/11/17 19:00 09/13/17 11:03 Novolog Vial Sliding Scale - SQ 2 units TIDAC ELENA Administration Protocol Insulin Detemir 95 units 09/13/17 07:00 09/13/17 06:23 Levemir Vial SQ 95 units AM ELENA Administration Lactic Acid 1 applic 09/13/17 09:41 09/13/17 11:04 Lac-Hydrin 12 TP 1 applic BID PRN Administration xerosis Metoprolol Tartrate 25 mg 09/11/17 22:00 09/13/17 09:10 Lopressor - PO 25 mg BID ELENA Administration Mupirocin 1 applic 09/12/17 22:00 09/13/17 10:00 Bactroban Ointment (For Decolonization) - NS 09/17/17 21:59 1 applic BID ELENA Administration Non-Formulary Medication 1 drop 09/11/17 22:00 Brinzolamide [Azopt] OU TID ELENA Nystatin 1 applic 09/12/17 14:00 09/13/17 09:10 Nystop Powder - TP 1 applic DAILY ELENA Administration Ofloxacin 1 drop 09/11/17 22:00 09/13/17 06:20 Ocuflox 0.3% Eye Drops - OU 1 drop TID ELENA Administration Ondansetron HCl 4 mg 09/11/17 18:21 Zofran Injection IVPUSH Q4H PRN NAUSEA AND/OR VOMITING Ondansetron HCl 4 mg 09/11/17 18:35 Zofran Injection IVPUSH Q8H PRN NAUSEA Ranitidine HCl 150 mg 09/12/17 10:00 09/13/17 09:10 Zantac - PO 150 mg DAILY ELENA Administration Senna 1 tab 09/12/17 10:00 09/13/17 09:10 Senna - PO 1 tab DAILY ELENA Administration ASSESSMENT/PLAN: 66yo M with PMHx of CAD, DM, DOMINIK who arrived from PACU from a C2-T2 laminectomies and posterior fusion by Dr Tinoco. NEURO -C2-T2 laminectomy & fusion Post op day 2 -C collar in place -Pain control with ACCOUNT DEVELOPMENT SPECIALIST dilaudid -follow up neuro sx reccs -monitor drain output -PT when ok with Surgery PULM -incentive spirometry -CPAP at night for sleep apnea -hx of DOMINIK -O2 supplementation CV -Latest cath in 2013 shows 60% RCA stenosis as per chart. -ASA -cardio on board -Hydralazine 75mg TID -Lopressor 25 BID -Norvasc 10 -monitor BP ANEMIA -hgb 7.2 -refusing transfusion at this time -will repeat cbc in afternoon -patient agrees for transfusion if remains low ENDORCINE -BGM -ISS -Metformin held -Hgb A1c 6.3 -Gabapentin EXTREMITIES -L Great toe wound likely diabetic foot -FU podiatry reccs -wound culture positive staph -Santyl daily to left big toe. -Xray left foot. -Bcx, Ucx pending -chronic UTI's -U/A negative -asymptomatic -ID consulted FEN -NS @ 40ml/hour -WNL -Diabetic diet ICU monitoring Visit type - Emergency Visit Emergency Visit: Yes ED Registration Date: 09/11/17 Care time: The patient presented to the Emergency Department on the above date and was hospitalized for further evaluation of their emergent condition. - New Patient This patient is new to me today: No - Critical Care Critical Care patient: Yes Total Critical Care Time (in minutes): 40 Critical Care Statement: The care of this patient involved high complexity decision making to prevent further life threatening deterioration of the patient 's condition and/or to evaluate & treat vital organ system(s) failure or risk of failure.
[2017-09-13] MEDS: SODIUM CHLORIDE 1,000 ML IV SCH ×2 (14:27→15:29)
[2017-09-13 16:35] LABS: HEMATOCRIT 21.2 % (35.4-49); MCH 25.8 pg (25.7-33.7); MCHC 31.4 g/dl (32.0-35.9); MEAN PLT VOLUME 9.4 fl (7.5-11.1); PLATELET COUNT 164 K/MM3 (134-434); RBC 2.58 M/mm3 (4.00-5.60); RDW 15.3 % (11.9-15.9); WHITE BLOOD COUNT 13.9 K/mm3 (4.0-10.0)
[2017-09-13 16:43] LABS: HEMOGLOBIN 6.6 GM/dL (11.7-16.9)
--- NOTE | 2017-09-13 16:44 | PN ---
Progress Note, Physician History of Present Illness: continues to be stable now spiked a fever last night cx were send still with c/o of numbness - Current Medication List Current Medications: Active Medications Acetaminophen (Tylenol -) 650 mg PO Q4H PRN PRN Reason: FEVER Last Admin: 09/13/17 02:25 Dose: 650 mg Amlodipine Besylate (Norvasc -) 10 mg PO DAILY [facility] Last Admin: 09/13/17 09:10 Dose: 10 mg Aspirin (Ecotrin -) 81 mg PO DAILY [facility] Last Admin: 09/13/17 09:09 Dose: 81 mg Atorvastatin Calcium (Lipitor -) 10 mg PO HS [facility] Last Admin: 09/12/17 21:12 Dose: 10 mg Brimonidine Tartrate (Alphagan P 0.1% -) 1 drop OU TID [facility] Last Admin: 09/13/17 14:18 Dose: 1 drop Chlorhexidine Gluconate (Hibiclens For Decolonization -) 1 applic TP HS [facility] Last Admin: 09/12/17 21:11 Dose: 1 applic Clopidogrel Bisulfate (Plavix -) 75 mg PO DAILY [facility] Last Admin: 09/13/17 09:10 Dose: 75 mg Collagenase (Santyl -) 1 applic TP DAILY [facility] Last Admin: 09/13/17 11:02 Dose: 1 applic Docusate Sodium (Colace -) 200 mg PO DAILY [facility] Last Admin: 09/13/17 09:09 Dose: 200 mg Ferrous Sulfate (Feosol -) 325 mg PO DAILY@0800 [facility] Last Admin: 09/13/17 08:48 Dose: 325 mg Folic Acid (Folic Acid -) 1 mg PO DAILY [facility] Last Admin: 09/13/17 09:09 Dose: 1 mg Gabapentin (Neurontin -) 600 mg PO TID [facility] Last Admin: 09/13/17 14:17 Dose: 600 mg Heparin Sodium (Porcine) (Heparin -) 5,000 unit SQ Q8H [facility] Last Admin: 09/13/17 14:17 Dose: 5,000 unit Hydralazine HCl (Apresoline -) 75 mg PO TID [facility] Last Admin: 09/13/17 14:17 Dose: 75 mg Hydromorphone HCl (Dilaudid Railroad Design Consultant -) 0 mg DIRECTOR OF CLINICAL EDUCATION DIRECTOR OF CLINICAL EDUCATION [facility]; Protocol Stop: 09/18/17 18:21 Last Admin: 09/12/17 18:30 Dose: Not Given Sodium Chloride (Normal Saline -) 1,000 mls @ 40 mls/hr IV ASDIR [facility] Last Admin: 09/13/17 15:29 Dose: Not Given Piperacillin Sod/Tazobactam (Sod 2.25 gm/ Dextrose) 50 mls @ 100 mls/hr IVPB Q8H-IV ELENA; Protocol Last Admin: 09/13/17 09:11 Dose: 100 mls/hr Insulin Aspart (Novolog Vial Sliding Scale -) 1 vial SQ TIDAC [facility]; Protocol Last Admin: 09/13/17 11:03 Dose: 2 units Insulin Detemir (Levemir Vial) 95 units SQ AM [facility] Last Admin: 09/13/17 06:23 Dose: 95 units Lactic Acid (Lac-Hydrin 12) 1 applic TP BID PRN PRN Reason: xerosis Last Admin: 09/13/17 11:04 Dose: 1 applic Metoprolol Tartrate (Lopressor -) 25 mg PO BID [facility] Last Admin: 09/13/17 09:10 Dose: 25 mg Mupirocin (Bactroban Ointment (For Decolonization) -) 1 applic NS BID [facility] Stop: 09/17/17 21:59 Last Admin: 09/13/17 10:00 Dose: 1 applic Non-Formulary Medication (Brinzolamide [Azopt]) 1 drop OU TID [facility] Nystatin (Nystop Powder -) 1 applic TP DAILY [facility] Last Admin: 09/13/17 09:10 Dose: 1 applic Ofloxacin (Ocuflox 0.3% Eye Drops -) 1 drop OU TID [facility] Last Admin: 09/13/17 14:18 Dose: 1 drop Ondansetron HCl (Zofran Injection) 4 mg IVPUSH Q4H PRN PRN Reason: NAUSEA AND/OR VOMITING Ondansetron HCl (Zofran Injection) 4 mg IVPUSH Q8H PRN PRN Reason: NAUSEA Ranitidine HCl (Zantac -) 150 mg PO DAILY [facility] Last Admin: 09/13/17 09:10 Dose: 150 mg Senna (Senna -) 1 tab PO DAILY [facility] Last Admin: 09/13/17 09:10 Dose: 1 tab - Objective Vital Signs: Vital Signs Temperature 101 F H 09/13/17 16:15 Pulse Rate 82 09/13/17 16:15 Respiratory Rate 20 09/13/17 16:15 Blood Pressure 143/58 09/13/17 16:15 O2 Sat by Pulse Oximetry (%) 97 09/13/17 16:17 Constitutional: Yes: No Distress, Calm HENT: Yes: Other (neck collar ,breathing mass face tent) Cardiovascular: Yes: Regular Rate and Rhythm Respiratory: Yes: Regular, Other (on face tent,) Gastrointestinal: Yes: Normal Bowel Sounds, Soft Musculoskeletal: Yes: WNL Extremities: Yes: Other (contracted) Neurological: Yes: Alert, Oriented Psychiatric: Yes: Alert, Oriented Labs: CBC, BMP 09/13/17 15:15 09/13/17 05:24 Assessment/Plan 67 yo male s/p exploration of spinal fusion, C2-T2 laminectomies and C7-T1 osteotomies, deformity correction and C2-T2 posterior fusion. r/o uti numbness leukocytosis Cervical Spinal Stenosis s/p C2-T2 Laminectomies/Posterior Fusions CAD Aortic Stenosis s/p AVR HTN DM CKD DOMINIK Toe Ulcer fever plan cx from the toe noted will start patient on abx due to h/o of chronic uti monitor closely for fever monitor wbc rest continue as per icu will add vanco cc time 40 min
--- NOTE | 2017-09-13 16:53 | PN ---
Progress Note (short form) - Note Progress Note: ICU Evening Resident H/H results noted. No active bleeding justin Explained to patient risks and benefits of transfusion, he agrees. Patient is physically unable to sign due to finger numbness, so thus I signed for him. Will transfuse 1unit and repeat CBC. Repeat H/H noted Will transfuse another unit. Repeat CBC in am
--- NOTE | 2017-09-13 17:34 | PN ---
Progress Note (short form) - Note Progress Note: Subjective: The patient was seen and examined at the bedside he has no complaints at this time C-collar in place Tmax 101.5 Current Medications Generic Name Dose Route Start Last Admin Trade Name Freq PRN Reason Stop Dose Admin Acetaminophen 650 mg 09/11/17 18:35 09/13/17 17:02 Tylenol - PO 650 mg Q4H PRN Administration FEVER Amlodipine Besylate 10 mg 09/12/17 10:00 09/13/17 09:10 Norvasc - PO 10 mg DAILY ELENA Administration Aspirin 81 mg 09/12/17 10:00 09/13/17 09:09 Ecotrin - PO 81 mg DAILY ELENA Administration Atorvastatin Calcium 10 mg 09/12/17 22:00 09/12/17 21:12 Lipitor - PO 10 mg HS ELENA Administration Brimonidine Tartrate 1 drop 09/11/17 22:00 09/13/17 14:18 Alphagan P 0.1% - OU 1 drop TID ELENA Administration Chlorhexidine Gluconate 1 applic 09/12/17 22:00 09/12/17 21:11 Hibiclens For Decolonization - TP 1 applic HS ELENA Administration Clopidogrel Bisulfate 75 mg 09/13/17 10:00 09/13/17 09:10 Plavix - PO 75 mg DAILY ELENA Administration Collagenase 1 applic 09/13/17 10:00 09/13/17 11:02 Santyl - TP 1 applic DAILY ELENA Administration Docusate Sodium 200 mg 09/12/17 10:00 09/13/17 09:09 Colace - PO 200 mg DAILY ELENA Administration Ferrous Sulfate 325 mg 09/12/17 08:00 09/13/17 08:48 Feosol - PO 325 mg DAILY@0800 ELENA Administration Folic Acid 1 mg 09/12/17 10:00 09/13/17 09:09 Folic Acid - PO 1 mg DAILY ELENA Administration Gabapentin 600 mg 09/11/17 22:00 09/13/17 14:17 Neurontin - PO 600 mg TID ELENA Administration Heparin Sodium (Porcine) 5,000 unit 09/12/17 06:00 09/13/17 14:17 Heparin - SQ 5,000 unit Q8H ELENA Administration Hydralazine HCl 75 mg 09/11/17 22:00 09/13/17 14:17 Apresoline - PO 75 mg TID ELENA Administration Hydromorphone HCl 0 mg 09/11/17 18:30 09/12/17 18:30 Dilaudid Technical Developer - FRAME POLISHER 09/18/17 18:21 Not Given FRAME POLISHER ELENA Protocol Sodium Chloride 1,000 mls @ 40 mls/hr 09/12/17 15:29 09/13/17 15:29 Normal Saline - IV Not Given ASDIR ELENA Piperacillin Sod/Tazobactam 50 mls @ 100 mls/hr 09/12/17 18:00 09/13/17 09:11 Sod 2.25 gm/ Dextrose IVPB 100 mls/hr Q8H-IV ELENA Administration Protocol Insulin Aspart 1 vial 09/11/17 19:00 09/13/17 16:44 Novolog Vial Sliding Scale - SQ 4 units TIDAC [facility] Administration Protocol Insulin Detemir 95 units 09/13/17 07:00 09/13/17 06:23 Levemir Vial SQ 95 units AM ELENA Administration Lactic Acid 1 applic 09/13/17 09:41 09/13/17 11:04 Lac-Hydrin 12 TP 1 applic BID PRN Administration xerosis Metoprolol Tartrate 25 mg 09/11/17 22:00 09/13/17 09:10 Lopressor - PO 25 mg BID ELENA Administration Mupirocin 1 applic 09/12/17 22:00 09/13/17 10:00 Bactroban Ointment (For Decolonization) - NS 09/17/17 21:59 1 applic BID ELENA Administration Non-Formulary Medication 1 drop 09/11/17 22:00 Brinzolamide [Azopt] OU TID ELENA Nystatin 1 applic 09/12/17 14:00 09/13/17 09:10 Nystop Powder - TP 1 applic DAILY ELENA Administration Ofloxacin 1 drop 09/11/17 22:00 09/13/17 14:18 Ocuflox 0.3% Eye Drops - OU 1 drop TID ELENA Administration Ondansetron HCl 4 mg 09/11/17 18:21 Zofran Injection IVPUSH Q4H PRN NAUSEA AND/OR VOMITING Ondansetron HCl 4 mg 09/11/17 18:35 Zofran Injection IVPUSH Q8H PRN NAUSEA Ranitidine HCl 150 mg 09/12/17 10:00 09/13/17 09:10 Zantac - PO 150 mg DAILY ELENA Administration Senna 1 tab 09/12/17 10:00 09/13/17 09:10 Senna - PO 1 tab DAILY ELENA Administration Objective: Vital Signs Period Temp Pulse Resp BP Sys/Kauffman Pulse Ox Last 24 Hr 97.0 F-101.5 F 74-92 14-20 125-164/44-74 95-99 Physical Exam: General: NAD, A&Ox3 HEENT: C-collar in place Lungs: CTA anteriorly Heart: RRR, S1S2 Abd: Soft, non-tender, non-distended. Large right abdominal discolored, slightly raised area Back: Dressing in place, c/d/i Ext: Right hand survey associate strength 2/5, left hand survey associate strength 4/5. Lower ext: dressing on left foot, c/d/i CBCD WBC 13.9 K/mm3 (4.0-10.0) H 09/13/17 15:15 RBC 2.58 M/mm3 (4.00-5.60) L 09/13/17 15:15 Hgb 6.6 GM/dL (11.7-16.9) L* 09/13/17 15:15 Hct 21.2 % (35.4-49) L 09/13/17 15:15 MCV 82.0 fl (80-96) 09/13/17 15:15 MCHC 31.4 g/dl (32.0-35.9) L 09/13/17 15:15 RDW 15.3 % (11.9-15.9) 09/13/17 15:15 Plt Count 164 K/MM3 (134-434) 09/13/17 15:15 MPV 9.4 fl (7.5-11.1) 09/13/17 15:15 CMP Sodium 139 mmol/L (136-145) 09/13/17 05:24 Potassium 4.9 mmol/L (3.5-5.1) 09/13/17 05:24 Chloride 106 mmol/L (98-107) 09/13/17 05:24 Carbon Dioxide 26 mmol/L (21-32) 09/13/17 05:24 Anion Gap 7 (8-16) L 09/13/17 05:24 BUN 54 mg/dL (7-18) H 09/13/17 05:24 Creatinine 4.3 mg/dL (0.7-1.3) H 09/13/17 05:24 Creat Clearance w eGFR 13.76 (>60) 09/13/17 05:24 Random Glucose 156 mg/dL (74-106) H 09/13/17 05:24 Calcium 8.3 mg/dL (8.5-10.1) L 09/13/17 05:24 Total Bilirubin 0.3 mg/dL (0.2-1.0) D 09/13/17 05:24 AST 28 U/L (15-37) 09/13/17 05:24 ALT 13 U/L (12-78) 09/13/17 05:24 Alkaline Phosphatase 72 U/L (45-117) 09/13/17 05:24 Total Protein 5.5 g/dl (6.4-8.2) L 09/13/17 05:24 Albumin 2.5 g/dl (3.4-5.0) L 09/13/17 05:24 Microbiology 09/12/17 09:00 Foot - Left Gram Stain - Final 09/12/17 09:00 Foot - Left Wound Culture - Preliminary Staphylococcus Latex Coag Pos Assessment: This is a 67 year old male with PMHx of HTN, DM, hyperlipidemia, obesity, sleep apnea, CKD, s/p RCA stent 05/30/10, s/p TAVR on 07/04/13, wheelchair bound, cardiac cath 06/17/13, who is s/p C2-T12 laminectomy and C7-T1 osteotomies, deformity correction and C2-T2 posterior fusion on 09/11. Plan: 1) S/p C2-T12 laminectomy and C7-T1 osteotomies, deformity correction and C2-T2 posterior fusion on 09/11 - C-collar in place - Continue Dilaudid FRAME POLISHER - Hgb 6.6 today (acute blood loss anemia), 1u PRBC ordered - Appreciate surgery consult 2) Fever - Tmax 101.5 - Post-op atelectasis vs. infectious? - F/u cultures - Continue Zosyn 3) Left big toe wound - Eschar and drainage noted; drainage sent for culture - X-ray left big toe: - Ammonia lactate bid - Santyl daily to left big toe - Heel pads bilaterally - Appreciate podiatry consult 4) CAD - Resume ASA - Resume Plavix (per cardiology, will need to look into clarifying indication for Plavix as outpatient, last stent 2010) - Appreciate cardiology consult 5) HTN - Continue Norvasc - Continue Hydralazine 6) DM - BGM ACHS - ISS ACHS - Patient does not have have Toujeo pen, discussed with pharmacy, will substitute with Levemir 7) Sleep apnea - Cpap at night 8) CKD - Cr at baseline - Continue to trend 9) F/E/N: - Diabetic/sodium controlled diet - Hyperkalemia: resolved 10) Prophylaxis: - Chemical DVT prophylaxis per surgery 11) Dispo: - Requires continued inpatient care CODE STATUS: FULL CODE Visit type - Emergency Visit Emergency Visit: Yes ED Registration Date: 09/11/17 Care time: The patient presented to the Emergency Department on the above date and was hospitalized for further evaluation of their emergent condition. - New Patient This patient is new to me today: No - Critical Care Critical Care patient: Yes Total Critical Care Time (in minutes): 45 Critical Care Statement: The care of this patient involved high complexity decision making to prevent further life threatening deterioration of the patient 's condition and/or to evaluate & treat vital organ system(s) failure or risk of failure.
[2017-09-13] MEDS: HYDROmorphone *PCA* 10MG/50ML DISP.SYRIN PCA SCH (18:30)
[2017-09-13] MEDS ORDERED: VANCOMYCIN 1,000 MG in DEXTROSE 5%-WATER - 250 ML IVPB ONE (19:30)
[2017-09-13] MEDS: ATORVASTATIN CA 10 MG TABLET (FP) PO SCH (21:57)
[2017-09-13 22:21] LABS: BASO % 0.5 % (0-2.0); EOS % 0.3 % (0-4.5); HEMATOCRIT 24.1 % (35.4-49); HEMOGLOBIN 7.7 GM/dL (11.7-16.9); MCH 26.3 pg (25.7-33.7); MCHC 32.1 g/dl (32.0-35.9); MEAN CELL VOLUME 81.9 fl (80-96); MEAN PLT VOLUME 9.2 fl (7.5-11.1); MONO % 15.5 % (3.8-10.2); NEUT % 75.7 % (42.8-82.8); PLATELET COUNT 175 K/MM3 (134-434); RBC 2.94 M/mm3 (4.00-5.60); RDW 15.1 % (11.9-15.9); WHITE BLOOD COUNT 13.7 K/mm3 (4.0-10.0)
[2017-09-13] MEDS: CHLORHEXIDINE GLUCONATE 4% CLEANSER FOR DECOLONIZATION TP SCH (22:50)
[2017-09-13] MEDS ORDERED: HYDROmorphone *PCA* 10MG/50ML DISP.SYRIN PCA ONE (23:19)
[2017-09-14] MEDS ORDERED: DEXTROSE 5%-WATER - 50 ML IVPB ONE ×2 (01:15→17:13)
[2017-09-14] MEDS ORDERED: PIPERACILLIN/TAZOBACTAM 2.25 GM VIAL IVPB ONE ×3 (01:15→17:13)
[2017-09-14] MEDS: PIPERACILLIN/TAZOB 2.25 GM 2.25 GM in DEXTROSE 5%-WATER - 50 ML IVPB SCH ×3 (01:19→17:53)
[2017-09-14] MEDS ORDERED: HEMOQUE TEST 1 EACH EACH ONE (05:25)
[2017-09-14] MEDS: hydrALAZINE HCL 25 MG TABLET (FP) PO SCH ×3 (05:35→23:00)
[2017-09-14] MEDS: HEPARIN NA (PORCINE) 5,000 UNITS/ML 1ML VIAL SQ SCH ×3 (05:35→17:53)
[2017-09-14] MEDS: GABAPENTIN 300 MG CAPSULE (FP) PO SCH ×3 (05:36→23:01)
[2017-09-14] MEDS: BRIMONIDINE TARTRATE 0.1% OPHTHALMIC 5 ML BOTTLE OU SCH ×3 (05:36→23:29)
[2017-09-14] MEDS: OFLOXACIN 0.3% OPHTHALMIC SOLUTION 5 ML BOTTLE OU SCH ×3 (05:36→23:30)
[2017-09-14] MEDS: ACETAMINOPHEN 325 MG TABLET (FP) PO PRN (05:37)
[2017-09-14 06:25] LABS: BASO % 0.3 % (0-2.0); EOS % 0.8 % (0-4.5); HEMATOCRIT 24.9 % (35.4-49); HEMOGLOBIN 8.1 GM/dL (11.7-16.9); LYMPH % 6.9 % (8-40); MCH 27.2 pg (25.7-33.7); MCHC 32.5 g/dl (32.0-35.9); MEAN CELL VOLUME 83.9 fl (80-96); MEAN PLT VOLUME 9.5 fl (7.5-11.1); MONO % 15.7 % (3.8-10.2); NEUT % 76.3 % (42.8-82.8); PLATELET COUNT 158 K/MM3 (134-434); RBC 2.97 M/mm3 (4.00-5.60); RDW 15.8 % (11.9-15.9); WHITE BLOOD COUNT 15.9 K/mm3 (4.0-10.0)
[2017-09-14] MEDS: INSULIN (LEVEMIR) 100 UNITS/ML UNITS SQ SCH (06:31)
[2017-09-14] MEDS: INSULIN SLIDING SCALE (NOVOLOG) 1 VIAL SQ SCH ×3 (06:31→17:53)
[2017-09-14 06:46] LABS: ALBUMIN 2.2 g/dl (3.4-5.0); ANION GAP 10 (8-16); BILIRUBIN,TOTAL 0.6 mg/dL (0.2-1.0); BLOOD UREA NITROGEN 52 mg/dL (7-18); CALCIUM 8.1 mg/dL (8.5-10.1); CHLORIDE 103 mmol/L (98-107); CO2 24 mmol/L (21-32); CREATININE 4.3 mg/dL (0.7-1.3); GLUCOSE,RANDOM 157 mg/dL (74-106); MAGNESIUM 1.8 mg/dL (1.8-2.4); POTASSIUM 4.5 mmol/L (3.5-5.1); SGOT/AST 33 U/L (15-37); SGPT/ALT 10 U/L (12-78); SODIUM 137 mmol/L (136-145)
[2017-09-14 06:47] LABS: ALK PHOS 73 U/L (45-117); TOT PROT 5.3 g/dl (6.4-8.2)
--- NOTE | 2017-09-14 08:12 | PN ---
Progress Note (short form) - Note Progress Note: Post op day#3.P75,BP 124/54 and Spo2 100% on O2 4L N/C.Patient stable and c/o pain score of 4-5/10 at surgical site on Dilaudid ASSISTANT FITNESS MANAGER.But c/o pain score of 10/ 10 on right hand as patient had an iv infiltrated in that hand and was taken out yesterday.So advised to consult hand surgeon Dr Terry.Will continue ASSISTANT FITNESS MANAGER and will f/u.Also will add Ofirmev for pain control.
[2017-09-14] MEDS ORDERED: PT OWN MED DRAWER 7, Y5N ONE (08:19)
[2017-09-14] MEDS ORDERED: DEXTROSE 5%-WATER - 100 ML IVPB ONE (08:19)
--- NOTE | 2017-09-14 08:43 | PN ---
Progress Note (short form) - Note Progress Note: Subjective: The patient was seen and examined at the bedside, he has complaints of right hand and wrist pain. IV infiltration yesterday? Right hand x-ray ordered Stat Right arm doppler to r/o DVT Hand surgery consult placed Current Medications Generic Name Dose Route Start Last Admin Trade Name Freq PRN Reason Stop Dose Admin Acetaminophen 650 mg 09/11/17 18:35 09/14/17 05:37 Tylenol - PO 650 mg Q4H PRN Administration FEVER Amlodipine Besylate 10 mg 09/12/17 10:00 09/13/17 09:10 Norvasc - PO 10 mg DAILY ELENA Administration Aspirin 81 mg 09/12/17 10:00 09/13/17 09:09 Ecotrin - PO 81 mg DAILY ELENA Administration Atorvastatin Calcium 10 mg 09/12/17 22:00 09/13/17 21:57 Lipitor - PO 10 mg HS ELENA Administration Brimonidine Tartrate 1 drop 09/11/17 22:00 09/14/17 05:36 Alphagan P 0.1% - OU 1 drop TID ELENA Administration Chlorhexidine Gluconate 1 applic 09/12/17 22:00 09/13/17 22:50 Hibiclens For Decolonization - TP 1 applic HS ELENA Administration Clopidogrel Bisulfate 75 mg 09/13/17 10:00 09/13/17 09:10 Plavix - PO 75 mg DAILY ELENA Administration Collagenase 1 applic 09/13/17 10:00 09/13/17 11:02 Santyl - TP 1 applic DAILY ELENA Administration Docusate Sodium 200 mg 09/12/17 10:00 09/13/17 09:09 Colace - PO 200 mg DAILY ELENA Administration Ferrous Sulfate 325 mg 09/12/17 08:00 09/13/17 08:48 Feosol - PO 325 mg DAILY@0800 ELENA Administration Folic Acid 1 mg 09/12/17 10:00 09/13/17 09:09 Folic Acid - PO 1 mg DAILY ELENA Administration Gabapentin 600 mg 09/11/17 22:00 09/14/17 05:36 Neurontin - PO 600 mg TID ELENA Administration Heparin Sodium (Porcine) 5,000 unit 09/12/17 06:00 09/14/17 05:35 Heparin - SQ 5,000 unit Q8H ELENA Administration Hydralazine HCl 75 mg 09/11/17 22:00 09/14/17 05:35 Apresoline - PO 75 mg TID ELENA Administration Hydromorphone HCl 0 mg 09/11/17 18:30 09/13/17 18:30 Dilaudid Bath Attendant - [employer] 09/18/17 18:21 Not Given [employer] [facility] Protocol Sodium Chloride 1,000 mls @ 40 mls/hr 09/12/17 15:29 09/13/17 15:29 Normal Saline - IV Not Given ASDIR ELENA Piperacillin Sod/Tazobactam 50 mls @ 100 mls/hr 09/12/17 18:00 09/14/17 01:19 Sod 2.25 gm/ Dextrose IVPB 100 mls/hr Q8H-IV ELENA Administration Protocol Insulin Aspart 1 vial 09/11/17 19:00 09/14/17 06:31 Novolog Vial Sliding Scale - SQ 2 units TIDAC [facility] Administration Protocol Insulin Detemir 95 units 09/13/17 07:00 09/14/17 06:31 Levemir Vial SQ 95 units AM ELENA Administration Lactic Acid 1 applic 09/13/17 09:41 09/13/17 11:04 Lac-Hydrin 12 TP 1 applic BID PRN Administration xerosis Metoprolol Tartrate 25 mg 09/11/17 22:00 09/13/17 21:57 Lopressor - PO 25 mg BID ELENA Administration Mupirocin 1 applic 09/12/17 22:00 09/13/17 21:58 Bactroban Ointment (For Decolonization) - NS 09/17/17 21:59 1 applic BID ELENA Administration Non-Formulary Medication 1 drop 09/11/17 22:00 Brinzolamide [Azopt] OU TID ELENA Nystatin 1 applic 09/12/17 14:00 09/13/17 09:10 Nystop Powder - TP 1 applic DAILY ELENA Administration Ofloxacin 1 drop 09/11/17 22:00 09/14/17 05:36 Ocuflox 0.3% Eye Drops - OU 1 drop TID ELENA Administration Ondansetron HCl 4 mg 09/11/17 18:21 Zofran Injection IVPUSH Q4H PRN NAUSEA AND/OR VOMITING Ondansetron HCl 4 mg 09/11/17 18:35 Zofran Injection IVPUSH Q8H PRN NAUSEA Ranitidine HCl 150 mg 09/12/17 10:00 09/13/17 09:10 Zantac - PO 150 mg DAILY ELENA Administration Senna 1 tab 09/12/17 10:00 09/13/17 09:10 Senna - PO 1 tab DAILY ELENA Administration Objective: Vital Signs Period Temp Pulse Resp BP Sys/Kauffman Pulse Ox Last 24 Hr 97.0 F-101 F 70-86 12-20 121-157/54-63 97-100 Physical Exam: General: NAD, A&Ox3 HEENT: C-collar in place Lungs: CTA anteriorly Heart: RRR, S1S2 Abd: Soft, non-tender, non-distended. Large right abdominal discolored, slightly raised area Back: Dressing in place, c/d/i Ext: Right hand and arm edema. Patient unable to make a fist with his right hand. Tenderness on hand and distal forearm Lower ext: dressing on left foot, c/d/i CBCD WBC 15.9 K/mm3 (4.0-10.0) H 09/14/17 05:20 RBC 2.97 M/mm3 (4.00-5.60) L 09/14/17 05:20 Hgb 8.1 GM/dL (11.7-16.9) L 09/14/17 05:20 Hct 24.9 % (35.4-49) L 09/14/17 05:20 MCV 83.9 fl (80-96) 09/14/17 05:20 MCHC 32.5 g/dl (32.0-35.9) 09/14/17 05:20 RDW 15.8 % (11.9-15.9) 09/14/17 05:20 Plt Count 158 K/MM3 (134-434) 09/14/17 05:20 MPV 9.5 fl (7.5-11.1) 09/14/17 05:20 CMP Sodium 137 mmol/L (136-145) 09/14/17 05:20 Potassium 4.5 mmol/L (3.5-5.1) 09/14/17 05:20 Chloride 103 mmol/L (98-107) 09/14/17 05:20 Carbon Dioxide 24 mmol/L (21-32) 09/14/17 05:20 Anion Gap 10 (8-16) 09/14/17 05:20 BUN 52 mg/dL (7-18) H 09/14/17 05:20 Creatinine 4.3 mg/dL (0.7-1.3) H 09/14/17 05:20 Creat Clearance w eGFR 13.76 (>60) 09/14/17 05:20 Random Glucose 157 mg/dL (74-106) H 09/14/17 05:20 Calcium 8.1 mg/dL (8.5-10.1) L 09/14/17 05:20 Total Bilirubin 0.6 mg/dL (0.2-1.0) D 09/14/17 05:20 AST 33 U/L (15-37) 09/14/17 05:20 ALT 10 U/L (12-78) L D 09/14/17 05:20 Alkaline Phosphatase 73 U/L (45-117) 09/14/17 05:20 Total Protein 5.3 g/dl (6.4-8.2) L 09/14/17 05:20 Albumin 2.2 g/dl (3.4-5.0) L 09/14/17 05:20 Microbiology 09/12/17 09:00 Foot - Left Gram Stain - Final 09/12/17 09:00 Foot - Left Wound Culture - Preliminary Staphylococcus Latex Coag Pos Assessment: This is a 67 year old male with PMHx of HTN, DM, hyperlipidemia, obesity, sleep apnea, CKD, s/p RCA stent 05/30/10, s/p TAVR on 07/04/13, wheelchair bound, cardiac cath 06/17/13, who is s/p C2-T12 laminectomy and C7-T1 osteotomies, deformity correction and C2-T2 posterior fusion on 09/11. Plan: 1) Right hand/forearm swelling and pain - Some degree of pain prior to surgery, now worsening - Edema is new - F/u doppler RUE to r/o DVT - F/u hand surgery consult (possible IV infiltration?) 2) S/p C2-T12 laminectomy and C7-T1 osteotomies, deformity correction and C2-T2 posterior fusion on 09/11 - C-collar in place - Continue Dilaudid [employer] - Hgb 6.6 yesterday, s/p 2u PRBC, Hgb now 8.1, continue to monitor - Appreciate surgery consult 2) Fever - Tmax 101 - Post-op atelectasis vs. infectious? - F/u cultures - Continue Zosyn 3) Left big toe wound - Eschar and drainage noted; drainage sent for culture - X-ray left big toe: - Ammonia lactate bid - Santyl daily to left big toe - Heel pads bilaterally - Appreciate podiatry consult 4) CAD - Resume ASA - Resume Plavix (per cardiology, will need to look into clarifying indication for Plavix as outpatient, last stent 2010) - Appreciate cardiology consult 5) HTN - Continue Norvasc - Continue Hydralazine 6) DM - BGM ACHS - ISS ACHS - Continue Levemir 95u sq AM 7) Sleep apnea - Cpap at night 8) CKD - Cr at baseline - Continue to trend 9) F/E/N: - Diabetic/sodium controlled diet - Monitor electrolytes 10) Prophylaxis: - Chemical DVT prophylaxis per surgery 11) Dispo: - Requires continued inpatient care CODE STATUS: FULL CODE Visit type - Emergency Visit Emergency Visit: Yes ED Registration Date: 09/11/17 Care time: The patient presented to the Emergency Department on the above date and was hospitalized for further evaluation of their emergent condition. - New Patient This patient is new to me today: No - Critical Care Critical Care patient: Yes Total Critical Care Time (in minutes): 45 Critical Care Statement: The care of this patient involved high complexity decision making to prevent further life threatening deterioration of the patient 's condition and/or to evaluate & treat vital organ system(s) failure or risk of failure.
[2017-09-14] MEDS ORDERED: AMMONIUM LACTATE 12% LOTION 225 GM BOTTLE TP PRN (08:50)
[2017-09-14] MEDS ORDERED: SODIUM CHLORIDE 1,000 ML IV SCH (08:50)
[2017-09-14] MEDS ORDERED: HYDROmorphone *PCA* 10MG/50ML DISP.SYRIN PCA SCH (08:50)
[2017-09-14] MEDS ORDERED: ONDANSETRON 4 MG/2 ML VIAL IVPUSH PRN ×2 (08:50)
[2017-09-14] MEDS: MUPIROCIN 2% TOPICAL OINTMENT FOR DECOLONIZATION NS SCH ×2 (09:12→23:16)
[2017-09-14] MEDS: DOCUSATE SODIUM 100 MG CAPSULE (FP) PO SCH (09:13)
[2017-09-14] MEDS: FOLIC ACID 1 MG TABLET (FP) PO SCH (09:13)
[2017-09-14] MEDS: ASPIRIN COATED 81 MG TABLET.EC PO SCH (09:13)
[2017-09-14] MEDS: CLOPIDOGREL BISULFATE 75 MG TABLET (FP) PO SCH (09:14)
[2017-09-14] MEDS: METOPROLOL TARTRATE 25 MG TABLET (FP) PO SCH ×2 (09:14→23:00)
[2017-09-14] MEDS: amLODIPine BESYLATE 10 MG TABLET (FP) PO SCH (09:14)
[2017-09-14] MEDS: COLLAGENASE CLOSTRIDIUM HIST. 30 GRAMS TUBE TP SCH (09:14)
[2017-09-14] MEDS: NYSTATIN POWDER 100,000 UNITS/GM - 15 GM TOPICAL POWDER TP SCH (09:14)
[2017-09-14] MEDS: SENNOSIDES 8.6MG TABLET (FP) PO SCH (09:15)
[2017-09-14] MEDS: RANITIDINE HCL 150 MG TABLET (FP) PO SCH (09:15)
--- NOTE | 2017-09-14 09:30 | PN ---
Progress Note (short form) - Note Progress Note: Surgery POD #3 C2-T2 decompression and fusion. Patient seen and examined at bedside still c/o Right Hand pain between the thumb and index finger which is unchanged from his pre-op symptoms. His LE movement has already improved and he denies any CP, N/V, or chills. Patient is feeling better after blood transfusion last night. Vital Signs Temp 99.4 F 09/14/17 04:00 Pulse 72 09/14/17 07:30 Resp 12 09/14/17 07:30 BP 128/72 09/14/17 08:00 Pulse Ox 100 09/14/17 07:41 Intake & Output 09/13/17 09/13/17 09/14/17 11:59 23:59 11:59 Intake Total 1116 2470 980 Output Total 1000 350 Balance 1116 1470 630 Weight 268 lb 8.368 oz 268 lb 275 lb Intake: IV 466 880 280 Normal Saline - 1,000 ml 466 880 280 @ 40 mls/hr IV ASDIR ELENA Rx#:[id number] IVPB 150 300 Oral 500 940 350 Packed Cells 350 350 Output: Urine 1000 350 Joshua 1000 350 Other: Voiding Method Indwelling Catheter Indwelling Catheter Indwelling Catheter Bowel Movement No No Height 5 ft 9 in Body Mass Index (BMI) 39.5 Weight Measurement Method Built in [facility] Built in [facility] CBC, BMP 09/14/17 05:20 09/14/17 05:20 PE: A&Ox3,NAD unlabored resp on face mask Incision over c-spine c/d/i with letitia insitu not evidence of tracking erythema, edmea, d/c or collection. drain site sealed and healing well with no d /c. dressed with 4x4 and op sites. c-collar maintained in good position. right UE diffuse edema throughout extending into hand, sensation to light touch intact throughout, extremely sensitive to touch at the web space between thumb and index, able to flex and extend wrist and flex and extend all fingers but limited 2/2 edema. AAROM with digits to full extension produce no pain. grout machine tender strength weak at 2/5. +2 radial and ulnar pulses Left UE sensation to light touch intact throughout, able to flex and extend at wrist and all digits, grout machine tender strength 3/5 B/L LE compartments soft, supple and non-tender. Patient able to dorsi and plantar flex. Problem List - Problems (1) Cervical myelopathy Assessment/Plan: POD #3 multilevel cervical decompression and fusion with post op anemia improving after receiving 2 units PRBC last night. Right arm with worsening diffuse edema of unclear etiology, 1) Stat Dopplers right UE- r/o vascular pathology 2) Conintue DVT prophylaxis 3) Maintain c-collar and keep dressing clean and dry 4) OOB as tolerated to chair- OK to stand and transfer with assist 5) OT for AROM, PROM and AAROM for UE and hand to avoid contracture 6) plan to transfer to floor today 7) continue to trend labs 8) Continue cpap Evaluation and plan discussed with Dr Tinoco Code(s): G95.9 - DISEASE OF SPINAL CORD, UNSPECIFIED
--- NOTE | 2017-09-14 09:38 | PN ---
Progress Note (short form) - Note Progress Note: FUV left big toe. Patient sleeping today. wbc=15.9, +granulating wound, -cellulitis, -drainage, +coag + staph on wound culture grade 1 ulceration r/o om Heel pads b/l. Santyl daily to left big toe. Ammonium lactate BID to exposed lower extremities. Will follow. Xray left foot.
[2017-09-14] MEDS ORDERED: oxyCODONE HCL 5 MG TABLET PO PRN ×2 (10:05)
[2017-09-14] MEDS ORDERED: morphine CARPU-JECT 2 MG/1 ML DISP.SYRIN IVPUSH PRN (10:06)
[2017-09-14] MEDS: oxyCODONE HCL 10 MG SUSTAINED ACTING TABLET PO SCH ×2 (10:27→23:01)
--- NOTE | 2017-09-14 11:15 | CON.ORTH ---
Consult Reason for Consultation:: right hand pain/swelling - Past Medical History Cardio/Vascular: Yes: AFIB, CHF, HTN, Other (TAVR) Pulmonary: Yes: COPD, Sleep Apnea Gastrointestinal: Yes: GERD, Other (gastroparesis) Renal/: Yes: Renal Inusuff Musculoskeletal: Yes: Chronic low back pain, Paraplegia Endocrine: Yes: Diabetes Mellitus - Past Surgical History Past Surgical History: Yes: Valve Replacement - Alcohol/Substance Use Hx Alcohol Use: No - Smoking History Smoking history: Former smoker Have you smoked in the past 12 months: No - Social History History of Recent Travel: No Home Medications - Allergies Allergies/Adverse Reactions: Allergies Allergy/AdvReac Type Severity Reaction Status Date / Time furosemide [From Lasix] Allergy Verified 09/11/17 12:33 latex Allergy Verified 09/11/17 12:33 - Home Medications Home Medications: Ambulatory Orders Amlodipine Besylate 10 mg PO DAILY 07/08/17 Cholecalciferol (Vitamin D3) [Vitamin D3] 2,000 unit PO DAILY 07/08/17 Docusate Sodium 200 mg PO DAILY 07/08/17 Gabapentin 600 mg PO TID 07/08/17 Hydralazine HCl 75 mg PO TID 07/08/17 Hydrochlorothiazide 25 mg PO DAILY 07/08/17 Metoprolol Tartrate 25 mg PO BID 07/08/17 Ranitidine [Zantac -] 150 mg PO DAILY 07/08/17 Sennosides [Senna] 8.6 mg PO DAILY 07/08/17 Simvastatin 20 mg PO DAILY 07/08/17 Brimonidine Tartrate [Alphagan P 0.1% -] 1 drop OU TID 07/10/17 Brinzolamide [Azopt] 1 drop OU TID 07/10/17 Ofloxacin 0.3% Ophth Soln [Ocuflox -] 1 drop OU TID 07/10/17 Insulin Sliding Scale [Novolog Vial Sliding Scale -] 0 units SQ ACHS 07/16/17 Aspirin [Ecotrin] 81 mg PO DAILY 09/06/17 Clopidogrel Bisulfate [Plavix] 75 mg PO DAILY 09/06/17 Insulin Glargine,Hum.rec.anlog [Toujeo Solostar] 95 unit SQ DAILY 09/06/17 Physical Exam for Ortho Vital Signs: Vital Signs Temperature 99.0 F 09/14/17 10:00 Pulse Rate 80 09/14/17 10:11 Respiratory Rate 11 L 09/14/17 10:00 Blood Pressure 140/57 09/14/17 10:00 O2 Sat by Pulse Oximetry (%) 99 09/14/17 10:11 Labs: CBC, BMP 09/14/17 05:20 09/14/17 05:20 - Upper Extremity Hand: Yes: Right, Limited ROM, Pain, Swelling, Tenderness, Other (nvi) Imaging - Results X-ray: Report Reviewed, Image Reviewed Assessment/Plan 67 year old male with a PMH of HTN, DM, HLD, obesity and CRI CAD S/P an RCA stent 05/30/10. Aortic stenosis s/p transapical TAVR on 07/04/13 at [facility]. Last Cardiac Cath 06/17/13 patent RCA stent now s/p C2-T2 laminectomy. Pt developed right hand pain and swelling from IV site after surgery. a/p- Right hand IV infiltration- f/u doppler to r/o dvt Strict elevation ROM exercises will follow d/w Dr. Terry
[2017-09-14] MEDS: PATIENT'S OWN MEDICATION (NON-FORMULARY) (Brinzolamide [Azopt] 1 DROP) OU SCH (13:23)
[2017-09-14] MEDS: FERROUS SO4 325 MG TABLET (FP) PO SCH (13:23)
--- NOTE | 2017-09-14 14:29 | PN ---
Physical Exam: SUBJECTIVE: Patient seen and examined. Overnight: S/p 2 Units PRBC. No new complaints today. Still complains of R hand pain. Says he still has b/l hand numbness but its better today. OBJECTIVE: Vital Signs Period Temp Pulse Resp BP Sys/Kauffman Pulse Ox Last 24 Hr 98.6 F-101 F 70-82 11-20 121-157/54-72 97-100 GEN: AAOx3, NAD, obese, C-collar in place, lying comfortably HEENT: PERRLA, EOMI CV: S1, S2, 3/6 R sided systolic murmur, RRR LUNG: Anterior breath sounds are clear to auscultation ABD: Obese, soft, NT, ND MSK: R hand tenderness to palpation > between 1st and 2nd digit. RUE edema. L great toe wound w/ dressing. NEURO: CN 2-12 grossly intact, able to move all extremities. decreased sensations in b/l UE > R UE Laboratory Results - last 24 hr 09/11/17 09/13/17 09/13/17 11:46 15:15 16:42 WBC 13.9 H RBC 2.58 L Hgb 6.6 L* Hct 21.2 L MCV 82.0 MCH 25.8 MCHC 31.4 L RDW 15.3 Plt Count 164 MPV 9.4 Neutrophils % Lymphocytes % Monocytes % Eosinophils % Basophils % Nucleated RBC % Sodium Potassium Chloride Carbon Dioxide Anion Gap BUN Creatinine Creat Clearance w eGFR POC Glucometer [phone] Random Glucose Calcium Phosphorus Magnesium Total Bilirubin AST ALT Alkaline Phosphatase Total Protein Albumin Blood Type AB POSITIVE Antibody Screen Negative Crossmatch See Detail 09/13/17 09/14/17 09/14/17 22:00 05:20 05:20 WBC 13.7 H 15.9 H RBC 2.94 L 2.97 L Hgb 7.7 L D 8.1 L Hct 24.1 L 24.9 L MCV 81.9 83.9 MCH 26.3 27.2 MCHC 32.1 32.5 RDW 15.1 15.8 Plt Count 175 158 MPV 9.2 9.5 Neutrophils % 75.7 76.3 Lymphocytes % 8.0 D 6.9 L Monocytes % 15.5 H 15.7 H Eosinophils % 0.3 D 0.8 D Basophils % 0.5 0.3 Nucleated RBC % 0 0 Sodium 137 Potassium 4.5 Chloride 103 Carbon Dioxide 24 Anion Gap 10 BUN 52 H Creatinine 4.3 H Creat Clearance w eGFR 13.76 POC Glucometer Random Glucose 157 H Calcium 8.1 L Phosphorus 4.0 Magnesium 1.8 Total Bilirubin 0.6 D AST 33 ALT 10 L D Alkaline Phosphatase 73 Total Protein 5.3 L Albumin 2.2 L Blood Type Antibody Screen Crossmatch 09/14/17 09/14/17 05:30 10:49 WBC RBC Hgb Hct MCV MCH MCHC RDW Plt Count MPV Neutrophils % Lymphocytes % Monocytes % Eosinophils % Basophils % Nucleated RBC % Sodium Potassium Chloride Carbon Dioxide Anion Gap BUN Creatinine Creat Clearance w eGFR POC Glucometer 188.36143 140.39444 Random Glucose Calcium Phosphorus Magnesium Total Bilirubin AST ALT Alkaline Phosphatase Total Protein Albumin Blood Type Antibody Screen Crossmatch Active Medications Generic Name Dose Route Start Last Admin Trade Name Freq PRN Reason Stop Dose Admin Acetaminophen 650 mg 09/14/17 08:50 Tylenol - PO Q4H PRN FEVER Amlodipine Besylate 10 mg 09/14/17 10:00 09/14/17 09:14 Norvasc - PO 10 mg DAILY COUNT INCLUDES THE [facility] Administration Aspirin 81 mg 09/14/17 10:00 09/14/17 09:13 Ecotrin - PO 81 mg DAILY COUNT INCLUDES THE [facility] Administration Atorvastatin Calcium 10 mg 09/14/17 22:00 Lipitor - PO HS COUNT INCLUDES THE [facility] Brimonidine Tartrate 1 drop 09/14/17 14:00 Alphagan P 0.1% - OU TID COUNT INCLUDES THE [facility] Chlorhexidine Gluconate 1 applic 09/14/17 22:00 Hibiclens For Decolonization - TP HS COUNT INCLUDES THE [facility] Clopidogrel Bisulfate 75 mg 09/14/17 10:00 09/14/17 09:14 Plavix - PO 75 mg DAILY COUNT INCLUDES THE [facility] Administration Collagenase 1 applic 09/14/17 10:00 09/14/17 09:14 Santyl - TP 1 applic DAILY COUNT INCLUDES THE [facility] Administration Docusate Sodium 200 mg 09/14/17 10:00 09/14/17 09:13 Colace - PO 200 mg DAILY COUNT INCLUDES THE [facility] Administration Ferrous Sulfate 325 mg 09/15/17 08:00 Feosol - PO DAILY@0800 ELENA Folic Acid 1 mg 09/14/17 10:00 09/14/17 09:13 Folic Acid - PO 1 mg DAILY COUNT INCLUDES THE [facility] Administration Gabapentin 600 mg 09/14/17 14:00 09/14/17 13:26 Neurontin - PO 600 mg TID ELENA Administration Heparin Sodium (Porcine) 5,000 unit 09/14/17 14:00 09/14/17 13:26 Heparin - SQ 5,000 unit Q8H-IV ELEAN Administration Hydralazine HCl 75 mg 09/14/17 14:00 09/14/17 13:25 Apresoline - PO 75 mg TID ELENA Administration Sodium Chloride 1,000 mls @ 40 mls/hr 09/14/17 08:50 09/14/17 10:28 Normal Saline - IV 40 mls/hr ASDIR ELENA Administration Piperacillin Sod/Tazobactam 50 mls @ 100 mls/hr 09/14/17 10:00 09/14/17 09:15 Sod 2.25 gm/ Dextrose IVPB 100 mls/hr Q8H-IV ELENA Administration Protocol Insulin Aspart 1 vial 09/14/17 11:00 09/14/17 10:50 Novolog Vial Sliding Scale - SQ Not Given TIDAC COUNT INCLUDES THE [facility] Protocol Insulin Detemir 95 units 09/15/17 07:00 Levemir Vial SQ AM ELENA Lactic Acid 1 applic 09/14/17 08:50 Lac-Hydrin 12 TP BID PRN xerosis Metoprolol Tartrate 25 mg 09/14/17 10:00 09/14/17 09:14 Lopressor - PO 25 mg BID ELENA Administration Morphine Sulfate 2 mg 09/14/17 10:06 Morphine Injection - IVPUSH Q6H PRN Breakthrough pain Mupirocin 1 applic 09/14/17 10:00 09/14/17 09:12 Bactroban Ointment (For Decolonization) - NS 09/17/17 21:59 1 applic BID EELNA Administration Non-Formulary Medication 1 drop 09/14/17 14:00 Brinzolamide [Azopt] OU TID ELENA Nystatin 1 applic 09/14/17 10:00 09/14/17 09:14 Nystop Powder - TP 1 applic DAILY ELENA Administration Ofloxacin 1 drop 09/14/17 14:00 Ocuflox 0.3% Eye Drops - OU TID ELENA Ondansetron HCl 4 mg 09/14/17 08:50 Zofran Injection IVPUSH Q4H PRN NAUSEA AND/OR VOMITING Ondansetron HCl 4 mg 09/14/17 08:50 Zofran Injection IVPUSH Q8H PRN NAUSEA Oxycodone HCl 10 mg 09/14/17 10:15 09/14/17 10:27 Oxycontin - PO 10 mg BID ELENA Administration Oxycodone HCl 5 mg 09/14/17 10:05 Roxicodone - PO Q4H PRN PAIN LEVEL 1-5 Oxycodone HCl 10 mg 09/14/17 10:05 Roxicodone - PO Q4H PRN PAIN LEVEL 6-10 Ranitidine HCl 150 mg 09/14/17 10:00 09/14/17 09:15 Zantac - PO 150 mg DAILY ELENA Administration Senna 1 tab 09/14/17 10:00 09/14/17 09:15 Senna - PO 1 tab DAILY ELENA Administration ASSESSMENT/PLAN: 66yo M with PMHx of CAD, DM, DOMINIK who arrived from PACU from a C2-T2 laminectomies and posterior fusion by Dr Tinoco. 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 -ASA -cardio on board -Hydralazine 75mg TID -Lopressor 25 BID -Norvasc 10 -monitor BP ANEMIA -hgb 8.1 -s/p 2 units PRBC yesterday -monitor H&H -patient agrees for transfusion if remains low ENDORCINE -BGM -ISS -Levemir 95 U AM -Metformin held -Hgb A1c 6.3 -Gabapentin MSK -L Great toe wound likely diabetic foot -FU podiatry reccs -wound culture positive staph -Santyl daily to left big toe. -Xray left foot unremarkable -R hand x ray with no fracture -R hand u/s neg for clot -ortho consulted -CKD -cr at baseline -chronic UTI's -U/A negative -asymptomatic FEN -Monitor electrolytes -Sodium/Diabetic diet Transfer Med-surge Visit type - Emergency Visit Emergency Visit: Yes ED Registration Date: 09/11/17 Care time: The patient presented to the Emergency Department on the above date and was hospitalized for further evaluation of their emergent condition. - New Patient This patient is new to me today: No - Critical Care Critical Care patient: Yes Total Critical Care Time (in minutes): 40 Critical Care Statement: The care of this patient involved high complexity decision making to prevent further life threatening deterioration of the patient 's condition and/or to evaluate & treat vital organ system(s) failure or risk of failure.
--- NOTE | 2017-09-14 16:03 | PN ---
Progress Note, Physician History of Present Illness: stable still spiked a low grade fever severe numbness according to him in both arms and legs rt hand in the sling - Current Medication List Current Medications: Active Medications Acetaminophen (Tylenol -) 650 mg PO Q4H PRN PRN Reason: FEVER Amlodipine Besylate (Norvasc -) 10 mg PO DAILY [facility] Last Admin: 09/14/17 09:14 Dose: 10 mg Aspirin (Ecotrin -) 81 mg PO DAILY [facility] Last Admin: 09/14/17 09:13 Dose: 81 mg Atorvastatin Calcium (Lipitor -) 10 mg PO HS [facility] Brimonidine Tartrate (Alphagan P 0.1% -) 1 drop OU TID [facility] Chlorhexidine Gluconate (Hibiclens For Decolonization -) 1 applic TP HS [facility] Clopidogrel Bisulfate (Plavix -) 75 mg PO DAILY [facility] Last Admin: 09/14/17 09:14 Dose: 75 mg Collagenase (Santyl -) 1 applic TP DAILY [facility] Last Admin: 09/14/17 09:14 Dose: 1 applic Docusate Sodium (Colace -) 200 mg PO DAILY [facility] Last Admin: 09/14/17 09:13 Dose: 200 mg Ferrous Sulfate (Feosol -) 325 mg PO DAILY@0800 [facility] Folic Acid (Folic Acid -) 1 mg PO DAILY [facility] Last Admin: 09/14/17 09:13 Dose: 1 mg Gabapentin (Neurontin -) 600 mg PO TID [facility] Last Admin: 09/14/17 13:26 Dose: 600 mg Heparin Sodium (Porcine) (Heparin -) 5,000 unit SQ Q8H-IV [facility] Last Admin: 09/14/17 13:26 Dose: 5,000 unit Hydralazine HCl (Apresoline -) 75 mg PO TID [facility] Last Admin: 09/14/17 13:25 Dose: 75 mg Sodium Chloride (Normal Saline -) 1,000 mls @ 40 mls/hr IV ASDIR [facility] Last Admin: 09/14/17 10:28 Dose: 40 mls/hr Piperacillin Sod/Tazobactam (Sod 2.25 gm/ Dextrose) 50 mls @ 100 mls/hr IVPB Q8H-IV [facility]; Protocol Last Admin: 09/14/17 09:15 Dose: 100 mls/hr Insulin Aspart (Novolog Vial Sliding Scale -) 1 vial SQ TIDAC [facility]; Protocol Last Admin: 09/14/17 10:50 Dose: Not Given Insulin Detemir (Levemir Vial) 95 units SQ AM [facility] Lactic Acid (Lac-Hydrin 12) 1 applic TP BID PRN PRN Reason: xerosis Metoprolol Tartrate (Lopressor -) 25 mg PO BID [facility] Last Admin: 09/14/17 09:14 Dose: 25 mg Morphine Sulfate (Morphine Injection -) 2 mg IVPUSH Q6H PRN PRN Reason: Breakthrough pain Mupirocin (Bactroban Ointment (For Decolonization) -) 1 applic NS BID [facility] Stop: 09/17/17 21:59 Last Admin: 09/14/17 09:12 Dose: 1 applic Non-Formulary Medication (Brinzolamide [Azopt]) 1 drop OU TID [facility] Nystatin (Nystop Powder -) 1 applic TP DAILY [facility] Last Admin: 09/14/17 09:14 Dose: 1 applic Ofloxacin (Ocuflox 0.3% Eye Drops -) 1 drop OU TID [facility] Ondansetron HCl (Zofran Injection) 4 mg IVPUSH Q4H PRN PRN Reason: NAUSEA AND/OR VOMITING Ondansetron HCl (Zofran Injection) 4 mg IVPUSH Q8H PRN PRN Reason: NAUSEA Oxycodone HCl (Oxycontin -) 10 mg PO BID [facility] Last Admin: 09/14/17 10:27 Dose: 10 mg Oxycodone HCl (Roxicodone -) 5 mg PO Q4H PRN PRN Reason: PAIN LEVEL 1-5 Oxycodone HCl (Roxicodone -) 10 mg PO Q4H PRN PRN Reason: PAIN LEVEL 6-10 Ranitidine HCl (Zantac -) 150 mg PO DAILY [facility] Last Admin: 09/14/17 09:15 Dose: 150 mg Senna (Senna -) 1 tab PO DAILY [facility] Last Admin: 09/14/17 09:15 Dose: 1 tab - Objective Vital Signs: Vital Signs Temperature 98.6 F 09/14/17 13:21 Pulse Rate 80 09/14/17 13:21 Respiratory Rate 15 09/14/17 13:21 Blood Pressure 131/66 09/14/17 13:21 O2 Sat by Pulse Oximetry (%) 99 09/14/17 10:11 Constitutional: Yes: Calm, Mild Distress Neck: Yes: Supple, Other (in hard collar) Cardiovascular: Yes: Regular Rate and Rhythm Respiratory: Yes: Regular, CTA Bilaterally Gastrointestinal: Yes: Normal Bowel Sounds, Soft Musculoskeletal: Yes: Other Extremities: Yes: Other Neurological: Yes: Alert, Oriented Psychiatric: Yes: Alert, Oriented Labs: CBC, BMP 09/14/17 05:20 09/14/17 05:20 Assessment/Plan 67 yo male s/p exploration of spinal fusion, C2-T2 laminectomies and C7-T1 osteotomies, deformity correction and C2-T2 posterior fusion. r/o uti numbness leukocytosis Cervical Spinal Stenosis s/p C2-T2 Laminectomies/Posterior Fusions CAD Aortic Stenosis s/p AVR HTN DM CKD DOMINIK Toe Ulcer fever plan continue abx wbc trending down cx result noted if patient remains stable and no fevers can switch to oral abx tomorrow
[2017-09-14] MEDS ORDERED: CHLORHEXIDINE GLUCONATE 4% CLEANSER FOR DECOLONIZATION TP SCH (22:00)
[2017-09-14] MEDS: ATORVASTATIN CA 10 MG TABLET (FP) PO SCH (23:00)
[2017-09-15] MEDS ORDERED: PIPERACILLIN/TAZOBACTAM 2.25 GM VIAL IVPB ONE ×2 (02:45→10:16)
[2017-09-15] MEDS ORDERED: DEXTROSE 5%-WATER - 50 ML IVPB ONE ×2 (02:46→10:16)
[2017-09-15] MEDS: PIPERACILLIN/TAZOB 2.25 GM 2.25 GM in DEXTROSE 5%-WATER - 50 ML IVPB SCH ×2 (03:01→10:17)
[2017-09-15] MEDS: HEPARIN NA (PORCINE) 5,000 UNITS/ML 1ML VIAL SQ SCH ×3 (03:02→18:32)
[2017-09-15] MEDS: GABAPENTIN 300 MG CAPSULE (FP) PO SCH ×3 (06:52→21:13)
[2017-09-15] MEDS: hydrALAZINE HCL 25 MG TABLET (FP) PO SCH ×3 (06:53→21:13)
[2017-09-15] MEDS: BRIMONIDINE TARTRATE 0.1% OPHTHALMIC 5 ML BOTTLE OU SCH ×3 (06:54→21:22)
[2017-09-15] MEDS: OFLOXACIN 0.3% OPHTHALMIC SOLUTION 5 ML BOTTLE OU SCH ×3 (07:03→21:22)
[2017-09-15] MEDS: INSULIN SLIDING SCALE (NOVOLOG) 1 VIAL SQ SCH ×3 (07:03→18:30)
[2017-09-15 07:30] LABS: BASO % 0.4 % (0-2.0); EOS % 2.3 % (0-4.5); HEMATOCRIT 23.2 % (35.4-49); HEMOGLOBIN 7.6 GM/dL (11.7-16.9); LYMPH % 5.1 % (8-40); MCH 27.4 pg (25.7-33.7); MCHC 32.8 g/dl (32.0-35.9); MEAN CELL VOLUME 83.5 fl (80-96); MEAN PLT VOLUME 9.1 fl (7.5-11.1); MONO % 14.8 % (3.8-10.2); NEUT % 77.4 % (42.8-82.8); PLATELET COUNT 189 K/MM3 (134-434); RBC 2.78 M/mm3 (4.00-5.60); RDW 15.8 % (11.9-15.9); WHITE BLOOD COUNT 13.3 K/mm3 (4.0-10.0)
[2017-09-15 07:50] LABS: CALCIUM 7.4 mg/dL (8.5-10.1); CHLORIDE 104 mmol/L (98-107); POTASSIUM 4.5 mmol/L (3.5-5.1); SGOT/AST 32 U/L (15-37); SGPT/ALT 10 U/L (12-78); SODIUM 137 mmol/L (136-145)
[2017-09-15 07:53] LABS: ALK PHOS 84 U/L (45-117); ANION GAP 10 (8-16); BILIRUBIN,TOTAL 0.4 mg/dL (0.2-1.0); BLOOD UREA NITROGEN 49 mg/dL (7-18); CO2 23 mmol/L (21-32); CREATININE 4.2 mg/dL (0.7-1.3); GLUCOSE,RANDOM 108 mg/dL (74-106)
[2017-09-15] MEDS: INSULIN (LEVEMIR) 100 UNITS/ML UNITS SQ SCH (08:54)
[2017-09-15] MEDS: FERROUS SO4 325 MG TABLET (FP) PO SCH (08:56)
[2017-09-15] MEDS: SENNOSIDES 8.6MG TABLET (FP) PO SCH (10:18)
[2017-09-15] MEDS: ASPIRIN COATED 81 MG TABLET.EC PO SCH (10:18)
[2017-09-15] MEDS: DOCUSATE SODIUM 100 MG CAPSULE (FP) PO SCH (10:18)
[2017-09-15] MEDS: amLODIPine BESYLATE 10 MG TABLET (FP) PO SCH (10:19)
[2017-09-15] MEDS: FOLIC ACID 1 MG TABLET (FP) PO SCH (10:19)
[2017-09-15] MEDS: oxyCODONE HCL 10 MG SUSTAINED ACTING TABLET PO SCH ×2 (10:19→21:12)
[2017-09-15] MEDS: METOPROLOL TARTRATE 25 MG TABLET (FP) PO SCH ×2 (10:19→21:13)
[2017-09-15] MEDS: RANITIDINE HCL 150 MG TABLET (FP) PO SCH (10:19)
[2017-09-15] MEDS: CLOPIDOGREL BISULFATE 75 MG TABLET (FP) PO SCH (10:20)
--- NOTE | 2017-09-15 11:27 | PN ---
Progress Note (short form) - Note Progress Note: Vascular Surgery Pt seen and examined. Left upper ext is in a sling for elevation. Sling taken down. Good palpable pulses from axilla, brachial to redial. There is some swelling in the extremity. US reviewed - there is no dvt in the extremity. Pt does have decreased motor function in that extremity. No vascular intervention needed at this time. No need to place arm in a sling to raise. Cont present management. Giovanny Ibrahim DO
--- NOTE | 2017-09-15 11:36 | PN ---
Progress Note (short form) - Note Progress Note: c/o pain and swelling in his R arm. worse on movement. denies CP, SOB, fever, chills, N/V/C/D, BRBPR Current Medications Generic Name Dose Route Start Last Admin Trade Name Freq PRN Reason Stop Dose Admin Acetaminophen 650 mg 09/14/17 08:50 Tylenol - PO Q4H PRN FEVER Amlodipine Besylate 10 mg 09/14/17 10:00 09/15/17 10:19 Norvasc - PO 10 mg DAILY [facility] Administration Aspirin 81 mg 09/14/17 10:00 09/15/17 10:18 Ecotrin - PO 81 mg DAILY [facility] Administration Atorvastatin Calcium 10 mg 09/14/17 22:00 09/14/17 23:00 Lipitor - PO 10 mg HS [facility] Administration Brimonidine Tartrate 1 drop 09/14/17 14:00 09/15/17 06:54 Alphagan P 0.1% - OU 1 drop TID [facility] Administration Chlorhexidine Gluconate 1 applic 09/14/17 22:00 09/14/17 23:16 Hibiclens For Decolonization - TP Not Given HS [facility] Clopidogrel Bisulfate 75 mg 09/14/17 10:00 09/15/17 10:20 Plavix - PO 75 mg DAILY [facility] Administration Collagenase 1 applic 09/14/17 10:00 09/14/17 09:14 Santyl - TP 1 applic DAILY [facility] Administration Docusate Sodium 200 mg 09/14/17 10:00 09/15/17 10:18 Colace - PO 200 mg DAILY [facility] Administration Ferrous Sulfate 325 mg 09/15/17 08:00 09/15/17 08:56 Feosol - PO 325 mg DAILY@0800 [facility] Administration Folic Acid 1 mg 09/14/17 10:00 09/15/17 10:19 Folic Acid - PO 1 mg DAILY [facility] Administration Gabapentin 600 mg 09/14/17 14:00 09/15/17 06:52 Neurontin - PO 600 mg TID [facility] Administration Heparin Sodium (Porcine) 5,000 unit 09/14/17 14:00 09/15/17 10:20 Heparin - SQ 5,000 unit Q8H-IV [facility] Administration Hydralazine HCl 75 mg 09/14/17 14:00 09/15/17 06:53 Apresoline - PO 75 mg TID [facility] Administration Sodium Chloride 1,000 mls @ 40 mls/hr 09/14/17 08:50 09/14/17 10:28 Normal Saline - IV 40 mls/hr ASDIR [facility] Administration Piperacillin Sod/Tazobactam 50 mls @ 100 mls/hr 09/14/17 10:00 09/15/17 10:17 Sod 2.25 gm/ Dextrose IVPB 100 mls/hr Q8H-IV [facility] Administration Protocol Insulin Aspart 1 vial 09/14/17 11:00 09/15/17 07:03 Novolog Vial Sliding Scale - SQ Not Given TIDAC [facility] Protocol Insulin Detemir 95 units 09/15/17 07:00 09/15/17 08:54 Levemir Vial SQ 95 units AM [facility] Administration Lactic Acid 1 applic 09/14/17 08:50 Lac-Hydrin 12 TP BID PRN xerosis Metoprolol Tartrate 25 mg 09/14/17 10:00 09/15/17 10:19 Lopressor - PO 25 mg BID [facility] Administration Morphine Sulfate 2 mg 09/14/17 10:06 Morphine Injection - IVPUSH Q6H PRN Breakthrough pain Mupirocin 1 applic 09/14/17 10:00 09/14/17 23:16 Bactroban Ointment (For Decolonization) - NS 09/17/17 21:59 Not Given BID [facility] Non-Formulary Medication 1 drop 09/14/17 14:00 Brinzolamide [Azopt] OU TID [facility] Nystatin 1 applic 09/14/17 10:00 09/14/17 09:14 Nystop Powder - TP 1 applic DAILY [facility] Administration Ofloxacin 1 drop 09/14/17 14:00 09/15/17 07:03 Ocuflox 0.3% Eye Drops - OU 1 drop TID [facility] Administration Ondansetron HCl 4 mg 09/14/17 08:50 Zofran Injection IVPUSH Q4H PRN NAUSEA AND/OR VOMITING Ondansetron HCl 4 mg 09/14/17 08:50 Zofran Injection IVPUSH Q8H PRN NAUSEA Oxycodone HCl 10 mg 09/14/17 10:15 09/15/17 10:19 Oxycontin - PO 10 mg BID [facility] Administration Oxycodone HCl 5 mg 09/14/17 10:05 Roxicodone - PO Q4H PRN PAIN LEVEL 1-5 Oxycodone HCl 10 mg 09/14/17 10:05 Roxicodone - PO Q4H PRN PAIN LEVEL 6-10 Ranitidine HCl 150 mg 09/14/17 10:00 09/15/17 10:19 Zantac - PO 150 mg DAILY [facility] Administration Senna 1 tab 09/14/17 10:00 09/15/17 10:18 Senna - PO 1 tab DAILY [facility] Administration Last Vital Signs Temp Pulse Resp BP Pulse Ox 98.6 F 71 20 137/64 100 09/15/17 01:56 09/15/17 05:00 09/15/17 05:00 09/15/17 05:00 09/14/17 21:00 General NAD +ccollar CV S1 S2 RRR no murmur/rub/gallop Lungs CTA anteriorly Abdomen soft NT/ND obese Extremities 2+ pitting edema RUE, tender 1+ LUE not tender. pulses intact B/L CBCD WBC 13.3 K/mm3 (4.0-10.0) H 09/15/17 06:30 RBC 2.78 M/mm3 (4.00-5.60) L 09/15/17 06:30 Hgb 7.6 GM/dL (11.7-16.9) L 09/15/17 06:30 Hct 23.2 % (35.4-49) L 09/15/17 06:30 MCV 83.5 fl (80-96) 09/15/17 06:30 MCHC 32.8 g/dl (32.0-35.9) 09/15/17 06:30 RDW 15.8 % (11.9-15.9) 09/15/17 06:30 Plt Count 189 K/MM3 (134-434) 09/15/17 06:30 MPV 9.1 fl (7.5-11.1) 09/15/17 06:30 CMP Sodium 137 mmol/L (136-145) 09/15/17 06:30 Potassium 4.5 mmol/L (3.5-5.1) 09/15/17 06:30 Chloride 104 mmol/L (98-107) 09/15/17 06:30 Carbon Dioxide 23 mmol/L (21-32) 09/15/17 06:30 Anion Gap 10 (8-16) 09/15/17 06:30 BUN 49 mg/dL (7-18) H 09/15/17 06:30 Creatinine 4.2 mg/dL (0.7-1.3) H 09/15/17 06:30 Creat Clearance w eGFR 14.14 (>60) 09/15/17 06:30 Calcium 7.4 mg/dL (8.5-10.1) L 09/15/17 06:30 Total Bilirubin 0.4 mg/dL (0.2-1.0) D 09/15/17 06:30 AST 32 U/L (15-37) 09/15/17 06:30 ALT 10 U/L (12-78) L 09/15/17 06:30 Alkaline Phosphatase 84 U/L (45-117) 09/15/17 06:30 Total Protein 5.0 g/dl (6.4-8.2) L 09/15/17 06:30 Albumin 2.0 g/dl (3.4-5.0) L 09/15/17 06:30 A&P 67 year old male with PMHx of HTN, DM, hyperlipidemia, obesity, sleep apnea , CKD, s/p RCA stent 05/30/10, s/p TAVR on 07/04/13, wheelchair bound, cardiac cath 06/17/13,presented for scheduled C2-T12 laminectomy and C7-T1 osteotomies, deformity correction and C2-T2 posterior fusion on 09/[address] Tinoco 1. Right hand/forearm swelling and pain- infiltrated IV. arm is very edematous, liekly due to aggressive IVF during hospital stay, infiltrated IV. has allergy to lasix. will restart HCTZ which he takes at home at higher dose. 50mg. monitor. doppler neg for DVT. will d/c IVF 1. S/p C2-T12 laminectomy and C7-T1 osteotomies, deformity correction and C2-T2 posterior fusion on 09/11- c-collar in place. cont management per neuro-surgery. maintain C-collar. pain control. 2. MSSA in L foot- afebrile >24H. leukcoytosis trending down. can likely switch over to po abx. on Zosyn day 4. ID on board. higinio await for ID recommendations. daily wound care per podiatry 3. acute blood loss anemia- 800cc EBV loss during surgery with 2 units PRBC given post-operatively. been stable. check iron studies. had colonoscopy about a year ago and reports normal. no indication for txn at this time. 4. CAD- stable. cont asa/plavix 5. HTN- controlled cont current emdications. 6. DM- controlled. on high doses of levemir. cont iss, bgm 7. DOMINIK- cpap at night 8. CKD- stable 9. DVT ppx- hep sq Visit type - Emergency Visit Emergency Visit: Yes ED Registration Date: 09/11/17 Care time: The patient presented to the Emergency Department on the above date and was hospitalized for further evaluation of their emergent condition. - New Patient This patient is new to me today: Yes Date on this admission: 09/15/17 - Critical Care Critical Care patient: No - Discharge Referral Referred to [facility] Med P.C.: No
--- NOTE | 2017-09-15 12:50 | PN ---
Progress Note (short form) - Note Progress Note: Patient stable and c/o some pain for which he is on Po medication. 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
[2017-09-15] MEDS: HYDROCHLOROTHIAZIDE 25 MG TABLET (FP) PO SCH (14:09)
--- NOTE | 2017-09-15 14:16 | PN ---
Progress Note, Physician History of Present Illness: Pt alert/afebrile. c/o burning in groin/testicular area after application of nystatin powder. Cervical collar in place. - Current Medication List Current Medications: Active Medications Acetaminophen (Tylenol -) 650 mg PO Q4H PRN PRN Reason: FEVER Amlodipine Besylate (Norvasc -) 10 mg PO DAILY [facility] Last Admin: 09/15/17 10:19 Dose: 10 mg Aspirin (Ecotrin -) 81 mg PO DAILY [facility] Last Admin: 09/15/17 10:18 Dose: 81 mg Atorvastatin Calcium (Lipitor -) 10 mg PO HS [facility] Last Admin: 09/14/17 23:00 Dose: 10 mg Brimonidine Tartrate (Alphagan P 0.1% -) 1 drop OU TID [facility] Last Admin: 09/15/17 06:54 Dose: 1 drop Clopidogrel Bisulfate (Plavix -) 75 mg PO DAILY [facility] Last Admin: 09/15/17 10:20 Dose: 75 mg Collagenase (Santyl -) 1 applic TP DAILY [facility] Last Admin: 09/14/17 09:14 Dose: 1 applic Docusate Sodium (Colace -) 200 mg PO DAILY [facility] Last Admin: 09/15/17 10:18 Dose: 200 mg Ferrous Sulfate (Feosol -) 325 mg PO DAILY@0800 [facility] Last Admin: 09/15/17 08:56 Dose: 325 mg Folic Acid (Folic Acid -) 1 mg PO DAILY [facility] Last Admin: 09/15/17 10:19 Dose: 1 mg Gabapentin (Neurontin -) 600 mg PO TID [facility] Last Admin: 09/15/17 06:52 Dose: 600 mg Heparin Sodium (Porcine) (Heparin -) 5,000 unit SQ Q8H-IV [facility] Last Admin: 09/15/17 10:20 Dose: 5,000 unit Hydralazine HCl (Apresoline -) 75 mg PO TID [facility] Last Admin: 09/15/17 06:53 Dose: 75 mg Hydrochlorothiazide (Hctz -) 50 mg PO DAILY [facility] Last Admin: 09/15/17 14:09 Dose: 50 mg Piperacillin Sod/Tazobactam (Sod 2.25 gm/ Dextrose) 50 mls @ 100 mls/hr IVPB Q8H-IV [facility]; Protocol Last Admin: 09/15/17 10:17 Dose: 100 mls/hr Insulin Aspart (Novolog Vial Sliding Scale -) 1 vial SQ TIDAC [facility]; Protocol Last Admin: 09/15/17 07:03 Dose: Not Given Insulin Detemir (Levemir Vial) 95 units SQ AM [facility] Last Admin: 09/15/17 08:54 Dose: 95 units Lactic Acid (Lac-Hydrin 12) 1 applic TP BID PRN PRN Reason: xerosis Metoprolol Tartrate (Lopressor -) 25 mg PO BID [facility] Last Admin: 09/15/17 10:19 Dose: 25 mg Morphine Sulfate (Morphine Injection -) 2 mg IVPUSH Q6H PRN PRN Reason: Breakthrough pain Non-Formulary Medication (Brinzolamide [Azopt]) 1 drop OU TID [facility] Nystatin (Nystop Powder -) 1 applic TP DAILY [facility] Last Admin: 09/14/17 09:14 Dose: 1 applic Ofloxacin (Ocuflox 0.3% Eye Drops -) 1 drop OU TID [facility] Last Admin: 09/15/17 07:03 Dose: 1 drop Ondansetron HCl (Zofran Injection) 4 mg IVPUSH Q8H PRN PRN Reason: NAUSEA Oxycodone HCl (Oxycontin -) 10 mg PO BID [facility] Last Admin: 09/15/17 10:19 Dose: 10 mg Oxycodone HCl (Roxicodone -) 5 mg PO Q4H PRN PRN Reason: PAIN LEVEL 1-5 Oxycodone HCl (Roxicodone -) 10 mg PO Q4H PRN PRN Reason: PAIN LEVEL 6-10 Ranitidine HCl (Zantac -) 150 mg PO DAILY [facility] Last Admin: 09/15/17 10:19 Dose: 150 mg Senna (Senna -) 1 tab PO DAILY [facility] Last Admin: 09/15/17 10:18 Dose: 1 tab - Objective Vital Signs: Vital Signs Temperature 99.5 F 09/15/17 14:09 Pulse Rate 77 09/15/17 14:09 Respiratory Rate 20 09/15/17 14:09 Blood Pressure 145/64 09/15/17 14:09 O2 Sat by Pulse Oximetry (%) 100 09/15/17 09:00 Constitutional: Yes: No Distress Cardiovascular: Yes: Regular Rate and Rhythm Respiratory: Yes: Regular Gastrointestinal: Yes: Normal Bowel Sounds, Soft Genitourinary: Yes: Joshua Present, Other (no scrotal edema/erythema) Extremities: Yes: Other (toe ulcer dry, minimal erythema) Labs: CBC, BMP 09/15/17 06:30 09/15/17 06:30 Microbiology 09/13/17 10:15 Blood - Peripheral Venous Blood Culture - Preliminary NO GROWTH OBTAINED AFTER 48 HOURS, INCUBATION TO CONTINUE FOR 3 DAYS. 09/13/17 09:25 Blood - Peripheral Venous Blood Culture - Preliminary NO GROWTH OBTAINED AFTER 48 HOURS, INCUBATION TO CONTINUE FOR 3 DAYS. 09/12/17 09:00 Foot - Left Gram Stain - Final 09/12/17 09:00 Foot - Left Wound Culture - Final Staphylococcus Aureus 09/13/17 08:25 Urine - Urine Joshua Urine Culture - Final NO GROWTH OBTAINED 09/12/17 17:00 Urine - Urine Joshua Urine Culture - Final NO GROWTH OBTAINED Problem List - Problems (1) CHF (congestive heart failure) Code(s): I50.9 - HEART FAILURE, UNSPECIFIED (2) DOMINIK (obstructive sleep apnea) Code(s): G47.33 - OBSTRUCTIVE SLEEP APNEA (ADULT) (PEDIATRIC) (3) Diabetes Code(s): E11.9 - TYPE 2 DIABETES MELLITUS WITHOUT COMPLICATIONS (4) Back pain Code(s): M54.9 - DORSALGIA, UNSPECIFIED (5) HTN (hypertension) Code(s): I10 - ESSENTIAL (PRIMARY) HYPERTENSION (6) S/P TAVR (transcatheter aortic valve replacement) Code(s): Z95.2 - PRESENCE OF PROSTHETIC HEART VALVE (7) Cervical myelopathy Code(s): G95.9 - DISEASE OF SPINAL CORD, UNSPECIFIED (8) Lumbosacral spondylosis Code(s): M47.817 - SPONDYLS W/O MYELOPATHY OR RADICULOPATHY, LUMBOSACR REGION Assessment/Plan 67 yo male with multiple comorbidities Infected toe ulcer - improving Fever leukocytosis Cervical Spinal Stenosis s/p C2-T2 Laminectomies/Posterior Fusions CAD Aortic Stenosis s/p AVR HTN DM CKD DOMINIK - pt now afebrile, wbc lower - d/c IV antibiotics, start augmentin po - cont. monitor vitals
[2017-09-15] MEDS: COLLAGENASE CLOSTRIDIUM HIST. 30 GRAMS TUBE TP SCH (18:29)
[2017-09-15] MEDS: NYSTATIN POWDER 100,000 UNITS/GM - 15 GM TOPICAL POWDER TP SCH (18:29)
[2017-09-15] MEDS: AMOX TR/POT CLAV 500MG/125MG TABLETS (FP) PO SCH (18:32)
[2017-09-15] MEDS: ATORVASTATIN CA 10 MG TABLET (FP) PO SCH (21:12)
[2017-09-16] MEDS: HEPARIN NA (PORCINE) 5,000 UNITS/ML 1ML VIAL SQ SCH ×3 (02:00→17:37)
[2017-09-16] MEDS: OFLOXACIN 0.3% OPHTHALMIC SOLUTION 5 ML BOTTLE OU SCH ×3 (06:32→22:18)
[2017-09-16] MEDS: GABAPENTIN 300 MG CAPSULE (FP) PO SCH ×3 (06:32→22:17)
[2017-09-16] MEDS: hydrALAZINE HCL 25 MG TABLET (FP) PO SCH ×3 (06:32→22:17)
[2017-09-16] MEDS: BRIMONIDINE TARTRATE 0.1% OPHTHALMIC 5 ML BOTTLE OU SCH ×3 (06:32→22:19)
[2017-09-16] MEDS: ACETAMINOPHEN 325 MG TABLET (FP) PO PRN ×2 (06:32→10:57)
[2017-09-16] MEDS: INSULIN SLIDING SCALE (NOVOLOG) 1 VIAL SQ SCH ×3 (06:33→17:37)
[2017-09-16] MEDS: INSULIN (LEVEMIR) 100 UNITS/ML UNITS SQ SCH (06:33)
[2017-09-16 07:10] LABS: HEMOGLOBIN 7.6 GM/dL (11.7-16.9); MCH 27.5 pg (25.7-33.7); MCHC 32.9 g/dl (32.0-35.9); MEAN CELL VOLUME 83.7 fl (80-96); MEAN PLT VOLUME 8.9 fl (7.5-11.1); PLATELET COUNT 217 K/MM3 (134-434); RBC 2.74 M/mm3 (4.00-5.60); WHITE BLOOD COUNT 11.3 K/mm3 (4.0-10.0)
[2017-09-16] MEDS ORDERED: PT OWN MED DRAWER 7, Y5N ONE (09:24)
[2017-09-16] MEDS: DOCUSATE SODIUM 100 MG CAPSULE (FP) PO SCH (09:30)
[2017-09-16] MEDS: RANITIDINE HCL 150 MG TABLET (FP) PO SCH (09:30)
[2017-09-16] MEDS: oxyCODONE HCL 10 MG SUSTAINED ACTING TABLET PO SCH ×2 (09:30→22:17)
[2017-09-16] MEDS: HYDROCHLOROTHIAZIDE 25 MG TABLET (FP) PO SCH (09:30)
[2017-09-16] MEDS: CLOPIDOGREL BISULFATE 75 MG TABLET (FP) PO SCH (09:30)
[2017-09-16] MEDS: METOPROLOL TARTRATE 25 MG TABLET (FP) PO SCH ×2 (09:31→22:16)
[2017-09-16] MEDS: ASPIRIN COATED 81 MG TABLET.EC PO SCH (09:31)
[2017-09-16] MEDS: FOLIC ACID 1 MG TABLET (FP) PO SCH (09:31)
[2017-09-16] MEDS: SENNOSIDES 8.6MG TABLET (FP) PO SCH (09:34)
[2017-09-16] MEDS: amLODIPine BESYLATE 10 MG TABLET (FP) PO SCH (09:34)
[2017-09-16] MEDS: AMOX TR/POT CLAV 500MG/125MG TABLETS (FP) PO SCH (09:35)
[2017-09-16] MEDS: FERROUS SO4 325 MG TABLET (FP) PO SCH (09:35)
[2017-09-16] MEDS: NYSTATIN POWDER 100,000 UNITS/GM - 15 GM TOPICAL POWDER TP SCH (09:35)
[2017-09-16] MEDS: COLLAGENASE CLOSTRIDIUM HIST. 30 GRAMS TUBE TP SCH (09:35)
--- NOTE | 2017-09-16 11:47 | PN ---
Physical Exam: SUBJECTIVE: Patient seen and examined at the bedside. OBJECTIVE: Bilateral hand edema noted On high dose of HCTZ, allergy to Lasix - told not to take because it causes severe ear ringing and has hx of meniere's disease No chest pain, on 4 liters with sats in the 90s Vital Signs Period Temp Pulse Resp BP Sys/Kauffman Pulse Ox Last 24 Hr 99.3 F-101.4 F 71-78 20-20 120-145/51-65 95-98 GENERAL: The patient is awake, alert, and fully oriented, in no acute distress. HEAD: Normal with no signs of trauma, on c llar EYES: PERRL, extraocular movements intact, sclera anicteric, conjunctiva clear. No ptosis. ENT: Ears normal, nares patent, oropharynx clear without exudates, moist mucous membranes. NECK: on c collar LUNGS: Breath sounds equal, diminished anteriorly HEART: Regular rate and rhythm on monitor tech ABDOMEN: Soft, nontender, nondistended, normoactive bowel sounds, no guarding, no rebound, no hepatosplenomegaly, no masses. EXTREMITIES: 2+ pulses, warm, well-perfused, no edema. PSYCH: Normal mood, normal affect. SKIN: Warm, dry, normal turgor, no rashes or lesions noted Laboratory Results - last 24 hr 09/15/17 09/15/17 09/16/17 17:21 21:01 06:29 WBC RBC Hgb Hct MCV MCH MCHC RDW Plt Count MPV POC Glucometer 116 122 94 Ferritin 09/16/17 09/16/17 06:30 06:30 WBC 11.3 H RBC 2.74 L Hgb 7.6 L Hct 23.0 L MCV 83.7 MCH 27.5 MCHC 32.9 RDW 16.0 H Plt Count 217 MPV 8.9 POC Glucometer Ferritin 321.787 H Active Medications Generic Name Dose Route Start Last Admin Trade Name Freq PRN Reason Stop Dose Admin Acetaminophen 650 mg 09/14/17 08:50 09/16/17 10:57 Tylenol - PO 650 mg Q4H PRN Administration FEVER Amlodipine Besylate 10 mg 09/14/17 10:00 09/16/17 09:34 Norvasc - PO 10 mg DAILY [facility] Administration Amoxicillin/Clavulanate Potassium 1 tab 09/15/17 16:30 09/16/17 09:35 Augmentin - 500mg Tablet PO 09/19/17 08:01 1 tab DAILY@0800 [facility] Administration Aspirin 81 mg 09/14/17 10:00 09/16/17 09:31 Ecotrin - PO 81 mg DAILY [facility] Administration Atorvastatin Calcium 10 mg 09/14/17 22:00 09/15/17 21:12 Lipitor - PO 10 mg HS [facility] Administration Brimonidine Tartrate 1 drop 09/14/17 14:00 09/16/17 06:32 Alphagan P 0.1% - OU 1 drop TID [facility] Administration Clopidogrel Bisulfate 75 mg 09/14/17 10:00 09/16/17 09:30 Plavix - PO 75 mg DAILY [facility] Administration Collagenase 1 applic 09/14/17 10:00 09/16/17 09:35 Santyl - TP 1 applic DAILY [facility] Administration Docusate Sodium 200 mg 09/14/17 10:00 09/16/17 09:30 Colace - PO 200 mg DAILY [facility] Administration Ferrous Sulfate 325 mg 09/15/17 08:00 09/16/17 09:35 Feosol - PO 325 mg DAILY@0800 [facility] Administration Folic Acid 1 mg 09/14/17 10:00 09/16/17 09:31 Folic Acid - PO 1 mg DAILY [facility] Administration Gabapentin 600 mg 09/14/17 14:00 09/16/17 06:32 Neurontin - PO 600 mg TID [facility] Administration Heparin Sodium (Porcine) 5,000 unit 09/14/17 14:00 09/16/17 09:34 Heparin - SQ 5,000 unit Q8H-IV [facility] Administration Hydralazine HCl 75 mg 09/14/17 14:00 09/16/17 06:32 Apresoline - PO 75 mg TID [facility] Administration Hydrochlorothiazide 50 mg 09/15/17 12:00 09/16/17 09:30 Hctz - PO 50 mg DAILY [facility] Administration Insulin Aspart 1 vial 09/14/17 11:00 09/16/17 06:33 Novolog Vial Sliding Scale - SQ Not Given TIDAC [facility] Protocol Insulin Detemir 95 units 09/15/17 07:00 09/16/17 06:33 Levemir Vial SQ Not Given AM [facility] Lactic Acid 1 applic 09/14/17 08:50 Lac-Hydrin 12 TP BID PRN xerosis Metoprolol Tartrate 25 mg 09/14/17 10:00 09/16/17 09:31 Lopressor - PO 25 mg BID [facility] Administration Morphine Sulfate 2 mg 09/14/17 10:06 Morphine Injection - IVPUSH Q6H PRN Breakthrough pain Non-Formulary Medication 1 drop 09/14/17 14:00 Brinzolamide [Azopt] OU TID [facility] Nystatin 1 applic 09/14/17 10:00 09/16/17 09:35 Nystop Powder - TP Not Given DAILY [facility] Ofloxacin 1 drop 09/14/17 14:00 09/16/17 06:32 Ocuflox 0.3% Eye Drops - OU 1 drop TID [facility] Administration Ondansetron HCl 4 mg 09/14/17 08:50 Zofran Injection IVPUSH Q8H PRN NAUSEA Oxycodone HCl 10 mg 09/14/17 10:15 09/16/17 09:30 Oxycontin - PO 10 mg BID [facility] Administration Oxycodone HCl 5 mg 09/14/17 10:05 Roxicodone - PO Q4H PRN PAIN LEVEL 1-5 Oxycodone HCl 10 mg 09/14/17 10:05 Roxicodone - PO Q4H PRN PAIN LEVEL 6-10 Ranitidine HCl 150 mg 09/14/17 10:00 09/16/17 09:30 Zantac - PO 150 mg DAILY [facility] Administration Senna 1 tab 09/14/17 10:00 09/16/17 09:34 Senna - PO 1 tab DAILY [facility] Administration ASSESSMENT/PLAN: Patient is a 67 year old male with a significant past medical history of hypertensin, diabetes, hyperlipidemia, obesity, sleep apnia, CKD, s/p RCA stent 05/30/10, s/p TAVR on 07/04/13, wheelchair bound, cardiac cath 06/17/13. He is s/p scheduled C2-T12 laminectomy and C7-T1 osteotomies, deformity correction and C2- T2 posterior fusion on 09/11. Vascular: Right forearm>arm edema and pain. right arm edema not worsening but causing pain, likely from infiltrated IV. Vascular study negative for DVT. On high dose of HCTZ secondary to Lasix allergy (causes severe ear ringing). No IVF currently. Vascular ulcer of left foot, great toe. Febrile today, repeat blood cultures, initally on IV antibiotics (Zosyn) and converted to PO (Augmentin), but since febrile, put back on IV antibiotics today (Meropenem) Surgery: C2-T12 laminectomy and C7-T1 osteotomies, deformity correction and C2-T2 posterior fusion on 09/11 On C Collar. Surgical followup. Pain currently controlled. Heme: Acute blood loss anemia. s/p 2 units of PRBC post op. Monitor hmg/hct, low stable, iron studies pending. Card: CAD: on Dual therapy Hypertension, controlled Endocrine DM, SS, BGMs Levemir, controlled currently Pulm: DOMINIK, chronic on cpap at night. FEN Fluids: PO adequate Electrolytes: monitor Nutrition: diabetic diet Prophy: heparin Visit type - Emergency Visit Emergency Visit: Yes ED Registration Date: 09/11/17 Care time: The patient presented to the Emergency Department on the above date and was hospitalized for further evaluation of their emergent condition. - New Patient This patient is new to me today: Yes Date on this admission: 09/16/17 - Critical Care Critical Care patient: No - Discharge Referral Referred to [facility] No
--- NOTE | 2017-09-16 14:56 | PN ---
Progress Note, Physician History of Present Illness: Pt febrile to 101.4F earlier, currently afebrile. Alert and fully responsive without new complaints. B/L LE numbness. No further burning sensation in groin. Denies shortness of breath/cough, abd pain/n/v/d. - Current Medication List Current Medications: Active Medications Acetaminophen (Tylenol -) 650 mg PO Q4H PRN PRN Reason: FEVER Last Admin: 09/16/17 10:57 Dose: 650 mg Amlodipine Besylate (Norvasc -) 10 mg PO DAILY [facility] Last Admin: 09/16/17 09:34 Dose: 10 mg Amoxicillin/Clavulanate Potassium (Augmentin - 500mg Tablet) 1 tab PO DAILY@ 0800 [facility] Stop: 09/19/17 08:01 Last Admin: 09/16/17 09:35 Dose: 1 tab Aspirin (Ecotrin -) 81 mg PO DAILY [facility] Last Admin: 09/16/17 09:31 Dose: 81 mg Atorvastatin Calcium (Lipitor -) 10 mg PO HS [facility] Last Admin: 09/15/17 21:12 Dose: 10 mg Brimonidine Tartrate (Alphagan P 0.1% -) 1 drop OU TID [facility] Last Admin: 09/16/17 14:06 Dose: 1 drop Clopidogrel Bisulfate (Plavix -) 75 mg PO DAILY [facility] Last Admin: 09/16/17 09:30 Dose: 75 mg Collagenase (Santyl -) 1 applic TP DAILY [facility] Last Admin: 09/16/17 09:35 Dose: 1 applic Docusate Sodium (Colace -) 200 mg PO DAILY [facility] Last Admin: 09/16/17 09:30 Dose: 200 mg Ferrous Sulfate (Feosol -) 325 mg PO DAILY@0800 [facility] Last Admin: 09/16/17 09:35 Dose: 325 mg Folic Acid (Folic Acid -) 1 mg PO DAILY [facility] Last Admin: 09/16/17 09:31 Dose: 1 mg Gabapentin (Neurontin -) 600 mg PO TID [facility] Last Admin: 09/16/17 14:05 Dose: 600 mg Heparin Sodium (Porcine) (Heparin -) 5,000 unit SQ Q8H-IV [facility] Last Admin: 09/16/17 09:34 Dose: 5,000 unit Hydralazine HCl (Apresoline -) 75 mg PO TID [facility] Last Admin: 09/16/17 14:05 Dose: 75 mg Hydrochlorothiazide (Hctz -) 50 mg PO DAILY [facility] Last Admin: 09/16/17 09:30 Dose: 50 mg Insulin Aspart (Novolog Vial Sliding Scale -) 1 vial SQ TIDAC [facility]; Protocol Last Admin: 09/16/17 12:30 Dose: Not Given Insulin Detemir (Levemir Vial) 95 units SQ AM [facility] Last Admin: 09/16/17 06:33 Dose: Not Given Lactic Acid (Lac-Hydrin 12) 1 applic TP BID PRN PRN Reason: xerosis Metoprolol Tartrate (Lopressor -) 25 mg PO BID [facility] Last Admin: 09/16/17 09:31 Dose: 25 mg Morphine Sulfate (Morphine Injection -) 2 mg IVPUSH Q6H PRN PRN Reason: Breakthrough pain Non-Formulary Medication (Brinzolamide [Azopt]) 1 drop OU TID [facility] Nystatin (Nystop Powder -) 1 applic TP DAILY [facility] Last Admin: 09/16/17 09:35 Dose: Not Given Ofloxacin (Ocuflox 0.3% Eye Drops -) 1 drop OU TID [facility] Last Admin: 09/16/17 14:06 Dose: 1 drop Ondansetron HCl (Zofran Injection) 4 mg IVPUSH Q8H PRN PRN Reason: NAUSEA Oxycodone HCl (Oxycontin -) 10 mg PO BID [facility] Last Admin: 09/16/17 09:30 Dose: 10 mg Oxycodone HCl (Roxicodone -) 5 mg PO Q4H PRN PRN Reason: PAIN LEVEL 1-5 Oxycodone HCl (Roxicodone -) 10 mg PO Q4H PRN PRN Reason: PAIN LEVEL 6-10 Ranitidine HCl (Zantac -) 150 mg PO DAILY [facility] Last Admin: 09/16/17 09:30 Dose: 150 mg Senna (Senna -) 1 tab PO DAILY [facility] Last Admin: 09/16/17 09:34 Dose: 1 tab - Objective Vital Signs: Vital Signs Temperature 98.9 F 09/16/17 14:00 Pulse Rate 69 09/16/17 14:00 Respiratory Rate 20 09/16/17 14:00 Blood Pressure 138/61 09/16/17 14:00 O2 Sat by Pulse Oximetry (%) 97 09/16/17 09:00 Constitutional: Yes: No Distress, Calm Neck: Yes: Other (cervical collar in place) Cardiovascular: Yes: Regular Rate and Rhythm Respiratory: Yes: Regular Gastrointestinal: Yes: Normal Bowel Sounds, Soft, Abdomen, Obese Genitourinary: Yes: Joshua Present, Other (no scrotal tenderness/edema) Edema: Yes (hands b/l) Integumentary: Yes: WNL Neurological: Yes: Alert, Oriented Labs: CBC, BMP 09/16/17 06:30 09/15/17 06:30 Problem List - Problems (1) CHF (congestive heart failure) Code(s): I50.9 - HEART FAILURE, UNSPECIFIED (2) DOMINIK (obstructive sleep apnea) Code(s): G47.33 - OBSTRUCTIVE SLEEP APNEA (ADULT) (PEDIATRIC) (3) Diabetes Code(s): E11.9 - TYPE 2 DIABETES MELLITUS WITHOUT COMPLICATIONS (4) Back pain Code(s): M54.9 - DORSALGIA, UNSPECIFIED (5) HTN (hypertension) Code(s): I10 - ESSENTIAL (PRIMARY) HYPERTENSION (6) S/P TAVR (transcatheter aortic valve replacement) Code(s): Z95.2 - PRESENCE OF PROSTHETIC HEART VALVE (7) Cervical myelopathy Code(s): G95.9 - DISEASE OF SPINAL CORD, UNSPECIFIED (8) Lumbosacral spondylosis Code(s): M47.817 - SPONDYLS W/O MYELOPATHY OR RADICULOPATHY, LUMBOSACR REGION Assessment/Plan 67 yo male with multiple comorbidities Infected toe ulcer - improving Fever - recurrent leukocytosis Cervical Spinal Stenosis s/p C2-T2 Laminectomies/Posterior Fusions CAD Aortic Stenosis s/p AVR HTN DM CKD DOMINIK - f/u Blood cultures sent, send u/a, urine cultures - d/c augmentin - start Meropenem 500 mg IV daily for now - cont. surgical f/u febrile to 101.4 this am, wbc normal - r/o infection vs inflammatory currently appears stable monitor closely
[2017-09-16 15:57] LABS: URINE APPEARANCE CLOUDY; URINE BILIRUBIN NEGATIVE (<2.0 mg/dL); URINE COLOR YELLOW; URINE GLUCOSE (UA) 1+ (NEGATIVE); URINE KETONE NEGATIVE (NEGATIVE); URINE LEUK ESTERASE NEGATIVE (NEGATIVE); URINE NITRITE NEGATIVE (NEGATIVE); URINE UROBILINOGEN NEGATIVE mg/dL (0.2-1.0)
[2017-09-16 16:19] LABS: URINE PROTEIN 2+ (NEGATIVE)
[2017-09-16 16:25] LABS: URINE MUCUS RARE
[2017-09-16] MEDS: ATORVASTATIN CA 10 MG TABLET (FP) PO SCH (22:17)
[2017-09-16] MEDS: MEROPENEM 500 MG in DEXTROSE 5%-WATER 100 ML IVPB SCH (23:26)
[2017-09-17] MEDS: HEPARIN NA (PORCINE) 5,000 UNITS/ML 1ML VIAL SQ SCH ×3 (05:21→18:03)
[2017-09-17 06:12] LABS: SERUM IRON SATURATION 9 % (15-55); TOTAL IRON BINDING CAPACITY 127 ug/dL (250-450); UIBC 116 ug/dL (111-343)
[2017-09-17 06:19] LABS: BASO % 0.4 % (0-2.0); EOS % 2.4 % (0-4.5); HEMATOCRIT 24.6 % (35.4-49); HEMOGLOBIN 8.1 GM/dL (11.7-16.9); LYMPH % 5.8 % (8-40); MCH 27.4 pg (25.7-33.7); MCHC 32.8 g/dl (32.0-35.9); MEAN CELL VOLUME 83.4 fl (80-96); MEAN PLT VOLUME 8.7 fl (7.5-11.1); MONO % 14.4 % (3.8-10.2); PLATELET COUNT 258 K/MM3 (134-434); RBC 2.95 M/mm3 (4.00-5.60); RDW 15.8 % (11.9-15.9); WHITE BLOOD COUNT 12.1 K/mm3 (4.0-10.0)
[2017-09-17] MEDS: GABAPENTIN 300 MG CAPSULE (FP) PO SCH ×3 (06:39→22:12)
[2017-09-17] MEDS: OFLOXACIN 0.3% OPHTHALMIC SOLUTION 5 ML BOTTLE OU SCH ×3 (06:39→22:12)
[2017-09-17] MEDS: BRIMONIDINE TARTRATE 0.1% OPHTHALMIC 5 ML BOTTLE OU SCH ×3 (06:40→22:14)
[2017-09-17] MEDS: hydrALAZINE HCL 25 MG TABLET (FP) PO SCH ×3 (06:40→22:13)
[2017-09-17] MEDS: INSULIN SLIDING SCALE (NOVOLOG) 1 VIAL SQ SCH ×3 (06:40→18:03)
[2017-09-17 06:42] LABS: ALBUMIN 1.9 g/dl (3.4-5.0); ALK PHOS 123 U/L (45-117); ANION GAP 8 (8-16); BILIRUBIN,TOTAL 0.3 mg/dL (0.2-1.0); BLOOD UREA NITROGEN 61 mg/dL (7-18); CALCIUM 7.8 mg/dL (8.5-10.1); CHLORIDE 103 mmol/L (98-107); CO2 24 mmol/L (21-32); CREATININE 4.9 mg/dL (0.7-1.3); GLUCOSE,RANDOM 151 mg/dL (74-106); MAGNESIUM 2.2 mg/dL (1.8-2.4); POTASSIUM 4.8 mmol/L (3.5-5.1); SGOT/AST 38 U/L (15-37); SGPT/ALT 18 U/L (12-78); SODIUM 135 mmol/L (136-145); TOT PROT 5.7 g/dl (6.4-8.2)
[2017-09-17] MEDS: INSULIN (LEVEMIR) 100 UNITS/ML UNITS SQ SCH ×2 (06:57→13:47)
--- NOTE | 2017-09-17 08:48 | PN ---
Physical Exam: SUBJECTIVE: Patient seen and examined at bedside. OBJECTIVE: Vital Signs Period Temp Pulse Resp BP Sys/Kauffman Pulse Ox Last 24 Hr 98.9 F-99.9 F 69-75 20-20 116-138/50-74 97-98 General/Neuro: A&Ox3, cervical collar in place, in no acute distress CV: S1, S2, rrr Pulm: anterior breath sounds CTA Abdomen: soft, not tender, not distended, +BS : zimmerman in place Upper ext: 2+ pulses, mild bilateral edema, both arms tender patient does not want his arms to be touched Lower ext: 2+ pulses, warm, well-perfused, no edema; small 1cm circular wound left great toe, granulating tissue, no drainage seen, dressing c/d/i Laboratory Results - last 24 hr 09/11/17 09/16/17 09/16/17 11:46 06:30 11:57 WBC RBC Hgb Hct MCV MCH MCHC RDW Plt Count MPV Neutrophils % Lymphocytes % Monocytes % Eosinophils % Basophils % Nucleated RBC % Sodium Potassium Chloride Carbon Dioxide Anion Gap BUN Creatinine Creat Clearance w eGFR POC Glucometer 141 Random Glucose Calcium Magnesium Iron 11 L TIBC 127 L Iron Saturation 9 L Total Bilirubin AST ALT Alkaline Phosphatase Total Protein Albumin Urine Color Urine Appearance Urine pH Ur Specific [place] Urine Protein Urine Glucose (UA) Urine Ketones Urine Blood Urine Nitrite Urine Bilirubin Urine Urobilinogen Ur Leukocyte Esterase Urine WBC (Auto) Urine RBC (Auto) Urine Mucus Blood Type AB POSITIVE Antibody Screen Negative Crossmatch See Detail 09/16/17 09/17/17 09/17/17 15:30 06:00 06:00 WBC 12.1 H RBC 2.95 L Hgb 8.1 L Hct 24.6 L MCV 83.4 MCH 27.4 MCHC 32.8 RDW 15.8 Plt Count 258 MPV 8.7 Neutrophils % 77.0 Lymphocytes % 5.8 L Monocytes % 14.4 H Eosinophils % 2.4 Basophils % 0.4 Nucleated RBC % 0 Sodium 135 L Potassium 4.8 Chloride 103 Carbon Dioxide 24 Anion Gap 8 BUN 61 H D Creatinine 4.9 H Creat Clearance w eGFR 11.84 POC Glucometer Random Glucose 151 H D Calcium 7.8 L Magnesium 2.2 D Iron TIBC Iron Saturation Total Bilirubin 0.3 D AST 38 H ALT 18 D Alkaline Phosphatase 123 H D Total Protein 5.7 L Albumin 1.9 L Urine Color Yellow Urine Appearance Cloudy Urine pH 5.0 D Ur Specific [place] 1.012 Urine Protein 2+ H Urine Glucose (UA) 1+ H Urine Ketones Negative Urine Blood 1+ H Urine Nitrite Negative Urine Bilirubin Negative Urine Urobilinogen Negative Ur Leukocyte Esterase Negative Urine WBC (Auto) 10 Urine RBC (Auto) 4 Urine Mucus Rare Blood Type Antibody Screen Crossmatch 09/17/17 06:37 WBC RBC Hgb Hct MCV MCH MCHC RDW Plt Count MPV Neutrophils % Lymphocytes % Monocytes % Eosinophils % Basophils % Nucleated RBC % Sodium Potassium Chloride Carbon Dioxide Anion Gap BUN Creatinine Creat Clearance w eGFR POC Glucometer 155 Random Glucose Calcium Magnesium Iron TIBC Iron Saturation Total Bilirubin AST ALT Alkaline Phosphatase Total Protein Albumin Urine Color Urine Appearance Urine pH Ur Specific [place] Urine Protein Urine Glucose (UA) Urine Ketones Urine Blood Urine Nitrite Urine Bilirubin Urine Urobilinogen Ur Leukocyte Esterase Urine WBC (Auto) Urine RBC (Auto) Urine Mucus Blood Type Antibody Screen Crossmatch Active Medications Generic Name Dose Route Start Last Admin Trade Name Freq PRN Reason Stop Dose Admin Acetaminophen 650 mg 09/14/17 08:50 09/16/17 10:57 Tylenol - PO 650 mg Q4H PRN Administration FEVER Amlodipine Besylate 10 mg 09/14/17 10:00 09/16/17 09:34 Norvasc - PO 10 mg DAILY [facility] Administration Aspirin 81 mg 09/14/17 10:00 09/16/17 09:31 Ecotrin - PO 81 mg DAILY [facility] Administration Atorvastatin Calcium 10 mg 09/14/17 22:00 09/16/17 22:17 Lipitor - PO 10 mg HS [facility] Administration Brimonidine Tartrate 1 drop 09/14/17 14:00 09/17/17 06:40 Alphagan P 0.1% - OU 1 drop TID [facility] Administration Clopidogrel Bisulfate 75 mg 09/14/17 10:00 09/16/17 09:30 Plavix - PO 75 mg DAILY [facility] Administration Collagenase 1 applic 09/14/17 10:00 09/16/17 09:35 Santyl - TP 1 applic DAILY [facility] Administration Docusate Sodium 200 mg 09/14/17 10:00 09/16/17 09:30 Colace - PO 200 mg DAILY [facility] Administration Ferrous Sulfate 325 mg 09/15/17 08:00 09/16/17 09:35 Feosol - PO 325 mg DAILY@0800 [facility] Administration Folic Acid 1 mg 09/14/17 10:00 09/16/17 09:31 Folic Acid - PO 1 mg DAILY [facility] Administration Gabapentin 600 mg 09/14/17 14:00 09/17/17 06:39 Neurontin - PO 600 mg TID [facility] Administration Heparin Sodium (Porcine) 5,000 unit 09/14/17 14:00 09/17/17 05:21 Heparin - SQ 5,000 unit Q8H-IV [facility] Administration Hydralazine HCl 75 mg 09/14/17 14:00 09/17/17 06:40 Apresoline - PO 75 mg TID [facility] Administration Hydrochlorothiazide 50 mg 09/15/17 12:00 09/16/17 09:30 Hctz - PO 50 mg DAILY [facility] Administration Meropenem 500 mg/ Dextrose 100 mls @ 200 mls/hr 09/16/17 15:00 09/16/17 23:26 IVPB 200 mls/hr DAILY@0600 [facility] Administration Insulin Aspart 1 vial 09/14/17 11:00 09/17/17 06:40 Novolog Vial Sliding Scale - SQ Not Given TIDAC [facility] Protocol Insulin Detemir 95 units 09/15/17 07:00 09/17/17 06:57 Levemir Vial SQ Not Given AM [facility] Lactic Acid 1 applic 09/14/17 08:50 Lac-Hydrin 12 TP BID PRN xerosis Metoprolol Tartrate 25 mg 09/14/17 10:00 09/16/17 22:16 Lopressor - PO 25 mg BID [facility] Administration Morphine Sulfate 2 mg 09/14/17 10:06 Morphine Injection - IVPUSH Q6H PRN Breakthrough pain Non-Formulary Medication 1 drop 09/14/17 14:00 Brinzolamide [Azopt] OU TID [facility] Nystatin 1 applic 09/14/17 10:00 09/16/17 09:35 Nystop Powder - TP Not Given DAILY [facility] Ofloxacin 1 drop 09/14/17 14:00 09/17/17 06:39 Ocuflox 0.3% Eye Drops - OU 1 drop TID [facility] Administration Ondansetron HCl 4 mg 09/14/17 08:50 Zofran Injection IVPUSH Q8H PRN NAUSEA Oxycodone HCl 10 mg 09/14/17 10:15 09/16/17 22:17 Oxycontin - PO 10 mg BID [facility] Administration Oxycodone HCl 5 mg 09/14/17 10:05 Roxicodone - PO Q4H PRN PAIN LEVEL 1-5 Oxycodone HCl 10 mg 09/14/17 10:05 Roxicodone - PO Q4H PRN PAIN LEVEL 6-10 Ranitidine HCl 150 mg 09/14/17 10:00 09/16/17 09:30 Zantac - PO 150 mg DAILY [facility] Administration Senna 1 tab 09/14/17 10:00 09/16/17 09:34 Senna - PO 1 tab DAILY [facility] Administration ASSESSMENT/PLAN 67 year-old male with a PMH significant for HTN, HLD, CAD s/p stent, s/p TAVR, IDDM, obesity, sleep apnea, CKD and paraplegia. Admitted for cervical stenosis with instability. Cervical stenosis with instability s/p exploration of spinal fusion, C2-T2 laminectomies, C7-C11 osteotomies, deformity correction, C2-T2 posterior fusion on 09/11 Paraplegia --discussed with Dr. Tinoco, ready for discharge from surgical perspective --perioperative acute blood loss anemia resolved; h/h stable --PO pain management oxycontin, oxycodone PRN, gabapentin Fever --POD #6 --spiked fever again today 101.5; WBC trending down --09/13 and 09/16 blood cultures no growth to date --UA on 09/16 showed pyuria but two urine cultures negative --d/c erasmo now, send off another UA and UC --will get US to r/o DVT --repeat CXR --continue meropenem (day #2) MSSA left great toe ulcer --granulating wound, no drainage seen today --discussed with Dr. Hensley from podiatry, low suspicion that foot ulcer is source of fever; if no other source identified, will proceed with bone scan --continue meropenem --ID following Right hand/forearm swelling --improved --doppler negative for DVT Hypertension --BP stable --continue metoprolol, amlodipine, hydralazine Hyperlipidemia --continue Lipitor Coronary artery disease s/p stent s/p TAVR --continue metoprolol, amlodipine, Lipitor, ASA, Plavix IDDM --continue Levemir 95U daily --Novolog sliding scale coverage CKD --Cr 4.9 which is essentially baseline --electrolytes OK DOMINIK --CPAP at night FEN Fluids: PO intake adequate Electrolytes: replete as indicated Nutrition: patient states he is finding it uncomfortable to swallow meat, would like chopped diet, diabetic, low sodium, thin liquids DVT prophylaxis: subq heparin Physical therapy daily Dispo: continues to require inpatient care. Full code. Visit type - Emergency Visit Emergency Visit: Yes ED Registration Date: 09/11/17 Care time: The patient presented to the Emergency Department on the above date and was hospitalized for further evaluation of their emergent condition. - New Patient This patient is new to me today: Yes Date on this admission: 09/17/17 - Critical Care Critical Care patient: No
--- NOTE | 2017-09-17 09:32 | PN ---
Progress Note (short form) - Note Progress Note: FUV left big toe. Patient sleeping today. wbc=12.1, +granulating wound, -cellulitis, -drainage, +coag + staph aureus, xrau - for om grade 1 ulceration r/o om Heel pads b/l. continue Santyl daily to left big toe. Ammonium lactate BID to exposed lower extremities. Will follow.
[2017-09-17] MEDS: FERROUS SO4 325 MG TABLET (FP) PO SCH (10:16)
[2017-09-17] MEDS: amLODIPine BESYLATE 10 MG TABLET (FP) PO SCH (10:16)
[2017-09-17] MEDS: METOPROLOL TARTRATE 25 MG TABLET (FP) PO SCH ×2 (10:16→22:13)
[2017-09-17] MEDS: HYDROCHLOROTHIAZIDE 25 MG TABLET (FP) PO SCH (10:16)
[2017-09-17] MEDS: FOLIC ACID 1 MG TABLET (FP) PO SCH (10:16)
[2017-09-17] MEDS: SENNOSIDES 8.6MG TABLET (FP) PO SCH (10:16)
[2017-09-17] MEDS: DOCUSATE SODIUM 100 MG CAPSULE (FP) PO SCH (10:17)
[2017-09-17] MEDS: RANITIDINE HCL 150 MG TABLET (FP) PO SCH (10:17)
[2017-09-17] MEDS: oxyCODONE HCL 10 MG SUSTAINED ACTING TABLET PO SCH ×2 (10:17→22:12)
[2017-09-17] MEDS: CLOPIDOGREL BISULFATE 75 MG TABLET (FP) PO SCH (10:18)
[2017-09-17] MEDS: ASPIRIN COATED 81 MG TABLET.EC PO SCH (10:18)
[2017-09-17] MEDS: COLLAGENASE CLOSTRIDIUM HIST. 30 GRAMS TUBE TP SCH (10:32)
[2017-09-17] MEDS: MEROPENEM 500 MG in DEXTROSE 5%-WATER 100 ML IVPB SCH (13:40)
[2017-09-17] MEDS: NYSTATIN POWDER 100,000 UNITS/GM - 15 GM TOPICAL POWDER TP SCH (13:45)
--- NOTE | 2017-09-17 14:22 | PN ---
Progress Note, Physician History of Present Illness: stable spiking low grade fever neck in collar still with numbness in the neck - Current Medication List Current Medications: Active Medications Acetaminophen (Tylenol -) 650 mg PO Q4H PRN PRN Reason: FEVER Last Admin: 09/16/17 10:57 Dose: 650 mg Amlodipine Besylate (Norvasc -) 10 mg PO DAILY [facility] Last Admin: 09/17/17 10:16 Dose: 10 mg Aspirin (Ecotrin -) 81 mg PO DAILY [facility] Last Admin: 09/17/17 10:18 Dose: 81 mg Atorvastatin Calcium (Lipitor -) 10 mg PO HS [facility] Last Admin: 09/16/17 22:17 Dose: 10 mg Brimonidine Tartrate (Alphagan P 0.1% -) 1 drop OU TID [facility] Last Admin: 09/17/17 13:44 Dose: 1 drop Clopidogrel Bisulfate (Plavix -) 75 mg PO DAILY [facility] Last Admin: 09/17/17 10:18 Dose: 75 mg Collagenase (Santyl -) 1 applic TP DAILY [facility] Last Admin: 09/17/17 10:32 Dose: 1 applic Docusate Sodium (Colace -) 200 mg PO DAILY [facility] Last Admin: 09/17/17 10:17 Dose: 200 mg Ferrous Sulfate (Feosol -) 325 mg PO DAILY@0800 [facility] Last Admin: 09/17/17 10:16 Dose: 325 mg Folic Acid (Folic Acid -) 1 mg PO DAILY [facility] Last Admin: 09/17/17 10:16 Dose: 1 mg Gabapentin (Neurontin -) 600 mg PO TID [facility] Last Admin: 09/17/17 13:44 Dose: 600 mg Heparin Sodium (Porcine) (Heparin -) 5,000 unit SQ Q8H-IV [facility] Last Admin: 09/17/17 10:16 Dose: 5,000 unit Hydralazine HCl (Apresoline -) 75 mg PO TID [facility] Last Admin: 09/17/17 13:44 Dose: 75 mg Hydrochlorothiazide (Hctz -) 50 mg PO DAILY [facility] Last Admin: 09/17/17 10:16 Dose: 50 mg Meropenem 500 mg/ Dextrose 100 mls @ 200 mls/hr IVPB DAILY@0600 [facility] Last Admin: 09/17/17 13:40 Dose: 200 mls/hr Insulin Aspart (Novolog Vial Sliding Scale -) 1 vial SQ TIDAC [facility]; Protocol Last Admin: 09/17/17 13:42 Dose: 2 units Insulin Detemir (Levemir Vial) 95 units SQ AM [facility] Last Admin: 09/17/17 13:47 Dose: 95 units Lactic Acid (Lac-Hydrin 12) 1 applic TP BID PRN PRN Reason: xerosis Metoprolol Tartrate (Lopressor -) 25 mg PO BID [facility] Last Admin: 09/17/17 10:16 Dose: 25 mg Non-Formulary Medication (Brinzolamide [Azopt]) 1 drop OU TID [facility] Nystatin (Nystop Powder -) 1 applic TP DAILY [facility] Last Admin: 09/17/17 13:45 Dose: Not Given Ofloxacin (Ocuflox 0.3% Eye Drops -) 1 drop OU TID [facility] Last Admin: 09/17/17 13:43 Dose: 1 drop Ondansetron HCl (Zofran Injection) 4 mg IVPUSH Q8H PRN PRN Reason: NAUSEA Oxycodone HCl (Oxycontin -) 10 mg PO BID [facility] Last Admin: 09/17/17 10:17 Dose: 10 mg Oxycodone HCl (Roxicodone -) 5 mg PO Q4H PRN PRN Reason: PAIN LEVEL 1-5 Oxycodone HCl (Roxicodone -) 10 mg PO Q4H PRN PRN Reason: PAIN LEVEL 6-10 Ranitidine HCl (Zantac -) 150 mg PO DAILY [facility] Last Admin: 09/17/17 10:17 Dose: 150 mg Senna (Senna -) 1 tab PO DAILY [facility] Last Admin: 09/17/17 10:16 Dose: 1 tab - Objective Vital Signs: Vital Signs Temperature 97.2 F L 09/17/17 09:00 Pulse Rate 74 09/17/17 09:00 Respiratory Rate 14 09/17/17 09:00 Blood Pressure 140/62 09/17/17 09:00 O2 Sat by Pulse Oximetry (%) 96 09/17/17 12:22 Constitutional: Yes: Calm, Mild Distress HENT: Yes: Other (neck collar) Neck: Yes: Supple Cardiovascular: Yes: Regular Rate and Rhythm Respiratory: Yes: Regular, CTA Bilaterally Gastrointestinal: Yes: Normal Bowel Sounds, Soft Musculoskeletal: Yes: WNL Extremities: Yes: Other Neurological: Yes: Alert, Oriented Psychiatric: Yes: Alert, Oriented Labs: CBC, BMP 09/17/17 06:00 09/17/17 06:00 Assessment/Plan 67 yo male s/p exploration of spinal fusion, C2-T2 laminectomies and C7-T1 osteotomies, deformity correction and C2-T2 posterior fusion. r/o uti numbness leukocytosis Cervical Spinal Stenosis s/p C2-T2 Laminectomies/Posterior Fusions CAD Aortic Stenosis s/p AVR HTN DM CKD DOMINIK Toe Ulcer fever plan continue abx patient still with fevers will continue abx till patient afebrile if patient continues to spike will have to work up
--- NOTE | 2017-09-17 16:58 | PN ---
Progress Note (short form) - Note Progress Note: Surgery POD #6 C2-T2 decompression and fusion. Patient seen and examined at bedside still c/o Right Hand pain between the thumb and index finger which is unchanged from his pre-op symptoms. He is tolerating his diet and denies any CP, N/V, or chills. He was febrile to 101.4 yesterday but WBC trending down. Vital Signs Temp 99.3 F 09/17/17 15:23 Pulse 74 09/17/17 15:23 Resp 16 09/17/17 15:23 BP 138/63 09/17/17 15:23 Pulse Ox 96 18 16:38 Intake & Output 09/16/18 18 09/17/17 23:59 11:59 23:59 Intake Total 20 Output Total 600 700 Balance -580 -700 Intake: IV 20 saline lock 20 Output: Urine 600 700 Joshua 600 700 Other: Voiding Method Indwelling Catheter Indwelling Catheter Bowel Movement No No Body Mass Index (BMI) 40.6 CBC, BMP 18 06:00 09/17/17 06:00 PE: A&Ox3,NAD unlabored resp on RA Incision over c-spine some ss drainage from proximal site, with letitia insitu not evidence of tracking erythema, edmea, or collection. drain site sealed and healing well with no d/c. dressed with 4x4 and op sites. c-collar maintained in good position. right UE diffuse edema throughout extending into hand, sensation to light touch intact throughout, extremely sensitive to touch at the web space between thumb and index, All rom at wrist, and fingers limited 2/2 edema and pain blocking. Left UE sensation to light touch intact throughout, able to flex and extend at wrist and all digits, meat cutting teacher strength 3/5 B/L LE compartments soft, supple and non-tender. sensation to light touch intact throughout. Problem List - Problems (1) Cervical myelopathy Assessment/Plan: POD #6 multilevel cervical decompression and fusion with post op anemia currently stable. Right arm with continued diffuse edema unchanged. 1) IV ABX per ID 2) Conintue DVT prophylaxis 3) Maintain c-collar and keep dressing clean and dry 4) OOB as tolerated to chair- OK to stand and transfer with assist 5) OT for AROM, PROM and AAROM for UE and hand to avoid contracture 6) F/u cultures 7) continue to trend labs 8) Elevate right UE Evaluation and plan discussed with Dr Tinoco Code(s): G95.9 - DISEASE OF SPINAL CORD, UNSPECIFIED
[2017-09-17] MEDS ORDERED: PT OWN MED DRAWER 7, Y5N ONE (17:38)
[2017-09-17] MEDS: ACETAMINOPHEN 325 MG TABLET (FP) PO PRN (18:03)
[2017-09-17 18:46] LABS: URINE APPEARANCE CLOUDY; URINE BILIRUBIN NEGATIVE (<2.0 mg/dL); URINE COLOR YELLOW; URINE GLUCOSE (UA) 3+ (NEGATIVE); URINE KETONE NEGATIVE (NEGATIVE); URINE LEUK ESTERASE NEGATIVE (NEGATIVE); URINE NITRITE NEGATIVE (NEGATIVE); URINE UROBILINOGEN NEGATIVE mg/dL (0.2-1.0)
[2017-09-17 19:03] LABS: URINE PROTEIN 2+ (NEGATIVE)
[2017-09-17 19:18] LABS: EPI CELLS RARE /HPF (FEW); URINE BACTERIA RARE /hpf (NONE SEEN); YEAST FEW
[2017-09-17] MEDS: ATORVASTATIN CA 10 MG TABLET (FP) PO SCH (22:12)
[2017-09-18] MEDS: HEPARIN NA (PORCINE) 5,000 UNITS/ML 1ML VIAL SQ SCH ×3 (02:30→18:30)
[2017-09-18] MEDS: BRIMONIDINE TARTRATE 0.1% OPHTHALMIC 5 ML BOTTLE OU SCH ×3 (06:06→21:50)
[2017-09-18] MEDS: hydrALAZINE HCL 25 MG TABLET (FP) PO SCH ×3 (06:06→21:51)
[2017-09-18] MEDS: GABAPENTIN 300 MG CAPSULE (FP) PO SCH ×3 (06:06→21:52)
[2017-09-18] MEDS: OFLOXACIN 0.3% OPHTHALMIC SOLUTION 5 ML BOTTLE OU SCH ×3 (06:07→21:53)
[2017-09-18] MEDS: INSULIN SLIDING SCALE (NOVOLOG) 1 VIAL SQ SCH ×3 (06:08→18:30)
[2017-09-18] MEDS: INSULIN (LEVEMIR) 100 UNITS/ML UNITS SQ SCH (06:50)
[2017-09-18] MEDS ORDERED: CHLORTHALIDONE 50 MG TABLET PO SCH (10:00)
[2017-09-18] MEDS: oxyCODONE HCL 10 MG SUSTAINED ACTING TABLET PO SCH (10:06)
[2017-09-18] MEDS: amLODIPine BESYLATE 10 MG TABLET (FP) PO SCH (10:07)
[2017-09-18] MEDS: CLOPIDOGREL BISULFATE 75 MG TABLET (FP) PO SCH (10:07)
[2017-09-18] MEDS: SENNOSIDES 8.6MG TABLET (FP) PO SCH (10:07)
[2017-09-18] MEDS: DOCUSATE SODIUM 100 MG CAPSULE (FP) PO SCH (10:07)
[2017-09-18] MEDS: FOLIC ACID 1 MG TABLET (FP) PO SCH (10:07)
[2017-09-18] MEDS: RANITIDINE HCL 150 MG TABLET (FP) PO SCH (10:07)
[2017-09-18] MEDS: FERROUS SO4 325 MG TABLET (FP) PO SCH (10:07)
[2017-09-18] MEDS: METOPROLOL TARTRATE 25 MG TABLET (FP) PO SCH ×2 (10:08→21:52)
[2017-09-18] MEDS: ASPIRIN COATED 81 MG TABLET.EC PO SCH (10:12)
[2017-09-18 10:17] LABS: BASO % 0.6 % (0-2.0); EOS % 2.2 % (0-4.5); HEMATOCRIT 23.5 % (35.4-49); HEMOGLOBIN 7.6 GM/dL (11.7-16.9); LYMPH % 4.9 % (8-40); MCH 26.9 pg (25.7-33.7); MCHC 32.3 g/dl (32.0-35.9); MEAN PLT VOLUME 8.5 fl (7.5-11.1); MONO % 13.9 % (3.8-10.2); NEUT % 78.4 % (42.8-82.8); PLATELET COUNT 307 K/MM3 (134-434); RBC 2.83 M/mm3 (4.00-5.60); RDW 15.5 % (11.9-15.9); WHITE BLOOD COUNT 13.9 K/mm3 (4.0-10.0)
--- NOTE | 2017-09-18 10:32 | PN ---
Progress Note (short form) - Note Progress Note: Surgery POD #7 C2-T2 decompression and fusion. Patient seen and examined at bedside still c/o Right Hand pain between the thumb and index finger which is unchanged. He is tolerating his diet and denies any CP, N/V, or chills. He was febrile to 101.5 late yesterday, AM labs pending Vital Signs Temp 99.4 F 09/18/17 05:00 Pulse 70 09/18/17 05:00 Resp 20 09/18/17 05:00 BP 140/67 09/18/17 05:00 Pulse Ox 96 09/18/17 07:44 Intake & Output 18 18 09/18/17 11:59 23:59 11:59 Intake Total 240 120 Output Total 700 Balance -460 120 Intake: Oral 240 120 Output: Urine 700 Joshua 700 Other: Voiding Method Indwelling Catheter Diaper Incontinent # Unmeasured Voids Joshua 1 Bowel Movement No Body Mass Index (BMI) 40.6 Chest x-ray with b/l pleural effusions. Cardiomegaly PE: A&Ox3,NAD unlabored resp on 2L NC dressing oer posterior neck is c/d/i with surrounding tissue intact and no evidence of tracking erythema, edmea, or collection. c-collar maintained in good position. right UE exam unchanged from yesterday can initiate finger rom but extremely limited 2/2 pain and edema Left UE sensation to light touch intact throughout, able to flex and extend at wrist and all digits, nurses supervisor strength 3/5 B/L LE compartments soft, supple and non-tender. sensation to light touch intact throughout. Patient able to dorsi/plantar flex feet and lift feet off bed. Problem List - Problems (1) Cervical myelopathy Assessment/Plan: POD #7 multilevel cervical decompression and fusion with post op anemia currently stable. Continues to have low grade fevers, final cultures pending. 1) IV ABX per ID 2) Conintue DVT prophylaxis 3) Maintain c-collar and keep dressing clean and dry 4) OOB as tolerated to chair- OK to stand and transfer with assist 5) OT for AROM, PROM and AAROM for UE and hand 6) F/u cultures 7) continue to trend labs 8) Elevate right UE 9) d/c planning for rehab Evaluation and plan discussed with Dr Tinoco Code(s): G95.9 - DISEASE OF SPINAL CORD, UNSPECIFIED
[2017-09-18] MEDS: COLLAGENASE CLOSTRIDIUM HIST. 30 GRAMS TUBE TP SCH (12:05)
[2017-09-18] MEDS: NYSTATIN POWDER 100,000 UNITS/GM - 15 GM TOPICAL POWDER TP SCH (12:06)
--- NOTE | 2017-09-18 12:54 | PN ---
Progress Note, Physician History of Present Illness: stable still with low grade fever - Current Medication List Current Medications: Active Medications Acetaminophen (Tylenol -) 650 mg PO Q4H PRN PRN Reason: FEVER Last Admin: 09/17/17 18:03 Dose: 650 mg Amlodipine Besylate (Norvasc -) 10 mg PO DAILY [facility] Last Admin: 09/18/17 10:07 Dose: 10 mg Aspirin (Ecotrin -) 81 mg PO DAILY [facility] Last Admin: 09/18/17 10:12 Dose: 81 mg Atorvastatin Calcium (Lipitor -) 10 mg PO HS [facility] Last Admin: 09/17/17 22:12 Dose: 10 mg Brimonidine Tartrate (Alphagan P 0.1% -) 1 drop OU TID [facility] Last Admin: 09/18/17 06:06 Dose: 1 drop Chlorthalidone (Hygroton -) 100 mg PO DAILY [facility] Last Admin: 09/18/17 11:57 Dose: 100 mg Clopidogrel Bisulfate (Plavix -) 75 mg PO DAILY [facility] Last Admin: 09/18/17 10:07 Dose: 75 mg Collagenase (Santyl -) 1 applic TP DAILY [facility] Last Admin: 09/18/17 12:05 Dose: 1 applic Docusate Sodium (Colace -) 200 mg PO DAILY [facility] Last Admin: 09/18/17 10:07 Dose: 200 mg Ferrous Sulfate (Feosol -) 325 mg PO DAILY@0800 [facility] Last Admin: 09/18/17 10:07 Dose: 325 mg Folic Acid (Folic Acid -) 1 mg PO DAILY [facility] Last Admin: 09/18/17 10:07 Dose: 1 mg Gabapentin (Neurontin -) 600 mg PO TID [facility] Last Admin: 09/18/17 06:06 Dose: 600 mg Heparin Sodium (Porcine) (Heparin -) 5,000 unit SQ Q8H-IV [facility] Last Admin: 09/18/17 10:08 Dose: 5,000 unit Hydralazine HCl (Apresoline -) 75 mg PO TID [facility] Last Admin: 09/18/17 06:06 Dose: 75 mg Meropenem 500 mg/ Dextrose 100 mls @ 200 mls/hr IVPB DAILY@0600 [facility] Last Admin: 09/17/17 13:40 Dose: 200 mls/hr Insulin Aspart (Novolog Vial Sliding Scale -) 1 vial SQ TIDAC [facility]; Protocol Last Admin: 09/18/17 12:05 Dose: Not Given Insulin Detemir (Levemir Vial) 95 units SQ AM [facility] Last Admin: 09/18/17 06:50 Dose: Not Given Lactic Acid (Lac-Hydrin 12) 1 applic TP BID PRN PRN Reason: xerosis Metoprolol Tartrate (Lopressor -) 25 mg PO BID [facility] Last Admin: 09/18/17 10:08 Dose: 25 mg Non-Formulary Medication (Brinzolamide [Azopt]) 1 drop OU TID [facility] Nystatin (Nystop Powder -) 1 applic TP DAILY [facility] Last Admin: 09/18/17 12:06 Dose: Not Given Ofloxacin (Ocuflox 0.3% Eye Drops -) 1 drop OU TID [facility] Last Admin: 09/18/17 06:07 Dose: 1 drop Ondansetron HCl (Zofran Injection) 4 mg IVPUSH Q8H PRN PRN Reason: NAUSEA Oxycodone HCl (Oxycontin -) 10 mg PO BID [facility] Last Admin: 09/18/17 10:06 Dose: 10 mg Ranitidine HCl (Zantac -) 150 mg PO DAILY [facility] Last Admin: 09/18/17 10:07 Dose: 150 mg Senna (Senna -) 1 tab PO DAILY [facility] Last Admin: 09/18/17 10:07 Dose: 1 tab - Objective Vital Signs: Vital Signs Temperature 99.2 F 09/18/17 09:00 Pulse Rate 72 09/18/17 09:00 Respiratory Rate 20 09/18/17 09:00 Blood Pressure 123/60 09/18/17 09:00 O2 Sat by Pulse Oximetry (%) 96 09/18/17 09:00 Constitutional: Yes: No Distress, Calm HENT: Yes: Other (neck collar) Cardiovascular: Yes: Regular Rate and Rhythm Respiratory: Yes: On BiPap, On Nasal O2 Gastrointestinal: Yes: Normal Bowel Sounds, Soft Musculoskeletal: Yes: WNL Extremities: Yes: Other Neurological: Yes: Alert, Oriented Psychiatric: Yes: Alert, Oriented Labs: CBC, BMP 09/18/17 09:55 Assessment/Plan 67 yo male s/p exploration of spinal fusion, C2-T2 laminectomies and C7-T1 osteotomies, deformity correction and C2-T2 posterior fusion. r/o uti numbness leukocytosis Cervical Spinal Stenosis s/p C2-T2 Laminectomies/Posterior Fusions CAD Aortic Stenosis s/p AVR HTN DM CKD DOMINIK Toe Ulcer fever plan continue abx patient still with fevers will continue abx till patient afebrile if patient continues to spike will have to work up will look at the wound tomorrow
[2017-09-18 13:12] LABS: CHLORIDE 103 mmol/L (98-107); POTASSIUM 4.9 mmol/L (3.5-5.1); SODIUM 136 mmol/L (136-145)
[2017-09-18 13:22] LABS: ALBUMIN 1.9 g/dl (3.4-5.0); ALK PHOS 138 U/L (45-117); ANION GAP 11 (8-16); BILIRUBIN,TOTAL 0.3 mg/dL (0.2-1.0); BLOOD UREA NITROGEN 73 mg/dL (7-18); CO2 22 mmol/L (21-32); CREATININE 5.1 mg/dL (0.7-1.3); GLUCOSE,RANDOM 114 mg/dL (74-106); MAGNESIUM 2.6 mg/dL (1.8-2.4); PHOSPHOROUS 4.5 mg/dL (2.5-4.9); SGOT/AST 38 U/L (15-37); SGPT/ALT 28 U/L (12-78); TOT PROT 5.6 g/dl (6.4-8.2)
[2017-09-18] MEDS: ACETAMINOPHEN 325 MG TABLET (FP) PO PRN (18:31)
[2017-09-18 20:54] LABS: ARTERIAL BLD GAS O2 SATURATION 93.7 % (90-98.9); ARTERIAL BLOOD GAS BASE EXCESS -3.9 meq/l (-2-2); ARTERIAL BLOOD GAS PCO2 35.8 mmHg (35-45); ARTERIAL BLOOD GAS PO2 68.3 mmHg (80-100); ARTERIAL BLOOD GAS pH 7.37 (7.35-7.45)
[2017-09-18 20:57] LABS: ALLENS TEST POSITIVE
--- NOTE | 2017-09-18 21:11 | PN ---
Progress Note (short form) - Note Progress Note: FUV left big toe. Patient alert and oriented. Son present. wbc=13.9, +granulating wound, -cellulitis, -drainage, grade 1 ulceration Heel pads b/l. continue Santyl daily to left big toe. Ammonium lactate BID to exposed lower extremities. Will follow. Discussed with medicine yesterday and today. Do not believe wound is what is causing wbc elevation. No visible evidence of infection.
[2017-09-18] MEDS: ATORVASTATIN CA 10 MG TABLET (FP) PO SCH (21:52)
[2017-09-18] MEDS: ETHACRYNIC ACID 25 MG TABLET PO SCH (21:52)
[2017-09-19] MEDS: HEPARIN NA (PORCINE) 5,000 UNITS/ML 1ML VIAL SQ SCH ×3 (01:44→17:48)
[2017-09-19] MEDS: ACETAMINOPHEN 325 MG TABLET (FP) PO PRN (02:30)
[2017-09-19 06:45] LABS: BASO % 0.4 % (0-2.0); EOS % 1.1 % (0-4.5); HEMATOCRIT 23.4 % (35.4-49); HEMOGLOBIN 7.8 GM/dL (11.7-16.9); LYMPH % 3.6 % (8-40); MCH 27.6 pg (25.7-33.7); MCHC 33.2 g/dl (32.0-35.9); MEAN CELL VOLUME 83.1 fl (80-96); MEAN PLT VOLUME 8.8 fl (7.5-11.1); MONO % 12.5 % (3.8-10.2); NEUT % 82.4 % (42.8-82.8); PLATELET COUNT 338 K/MM3 (134-434); RBC 2.81 M/mm3 (4.00-5.60); RDW 15.5 % (11.9-15.9)
[2017-09-19] MEDS: MEROPENEM 500 MG in DEXTROSE 5%-WATER 100 ML IVPB SCH ×2 (06:47→10:00)
[2017-09-19] MEDS: BRIMONIDINE TARTRATE 0.1% OPHTHALMIC 5 ML BOTTLE OU SCH ×3 (06:47→21:30)
[2017-09-19] MEDS: OFLOXACIN 0.3% OPHTHALMIC SOLUTION 5 ML BOTTLE OU SCH ×3 (06:48→21:29)
[2017-09-19 06:53] LABS: CHLORIDE 101 mmol/L (98-107); POTASSIUM 5.3 mmol/L (3.5-5.1); SODIUM 133 mmol/L (136-145)
[2017-09-19] MEDS: hydrALAZINE HCL 25 MG TABLET (FP) PO SCH ×3 (07:02→21:30)
[2017-09-19] MEDS: GABAPENTIN 300 MG CAPSULE (FP) PO SCH ×3 (07:02→21:30)
[2017-09-19] MEDS: INSULIN SLIDING SCALE (NOVOLOG) 1 VIAL SQ SCH ×3 (07:02→21:41)
[2017-09-19 07:12] LABS: ALBUMIN 1.9 g/dl (3.4-5.0); ALK PHOS 171 U/L (45-117); ANION GAP 12 (8-16); BILIRUBIN,TOTAL 0.4 mg/dL (0.2-1.0); BLOOD UREA NITROGEN 84 mg/dL (7-18); CALCIUM 8.1 mg/dL (8.5-10.1); CO2 20 mmol/L (21-32); CREATININE 5.1 mg/dL (0.7-1.3); GLUCOSE,RANDOM 208 mg/dL (74-106); MAGNESIUM 2.6 mg/dL (1.8-2.4); PHOSPHOROUS 5.1 mg/dL (2.5-4.9); SGOT/AST 50 U/L (15-37); SGPT/ALT 32 U/L (12-78); TOT PROT 5.8 g/dl (6.4-8.2)
[2017-09-19] MEDS: INSULIN (LEVEMIR) 100 UNITS/ML UNITS SQ SCH (07:53)
[2017-09-19] MEDS: FOLIC ACID 1 MG TABLET (FP) PO SCH (10:20)
[2017-09-19] MEDS: SENNOSIDES 8.6MG TABLET (FP) PO SCH (10:20)
[2017-09-19] MEDS: CLOPIDOGREL BISULFATE 75 MG TABLET (FP) PO SCH (10:20)
[2017-09-19] MEDS: ASPIRIN COATED 81 MG TABLET.EC PO SCH (10:20)
[2017-09-19] MEDS: amLODIPine BESYLATE 10 MG TABLET (FP) PO SCH (10:20)
[2017-09-19] MEDS: CHLORTHALIDONE 25 MG TABLET PO SCH (10:20)
[2017-09-19] MEDS: DOCUSATE SODIUM 100 MG CAPSULE (FP) PO SCH (10:20)
[2017-09-19] MEDS: RANITIDINE HCL 150 MG TABLET (FP) PO SCH (10:21)
[2017-09-19] MEDS: FERROUS SO4 325 MG TABLET (FP) PO SCH (10:21)
[2017-09-19] MEDS: METOPROLOL TARTRATE 25 MG TABLET (FP) PO SCH ×2 (10:21→21:30)
[2017-09-19] MEDS: ETHACRYNIC ACID 25 MG TABLET PO SCH ×2 (10:22→21:31)
[2017-09-19] MEDS: COLLAGENASE CLOSTRIDIUM HIST. 30 GRAMS TUBE TP SCH (10:23)
[2017-09-19] MEDS: NYSTATIN POWDER 100,000 UNITS/GM - 15 GM TOPICAL POWDER TP SCH (10:23)
[2017-09-19] MEDS ORDERED: BISACODYL 10 MG SUPP.RECT RC ONE (15:30)
--- NOTE | 2017-09-19 15:39 | PN ---
Progress Note, Physician History of Present Illness: pulmonary alert,c/o sob,-cp,-cough - Current Medication List Current Medications: Active Medications Acetaminophen (Tylenol -) 650 mg PO Q4H PRN PRN Reason: FEVER Last Admin: 09/19/17 02:30 Dose: 650 mg Amlodipine Besylate (Norvasc -) 10 mg PO DAILY [facility] Last Admin: 09/19/17 10:20 Dose: 10 mg Aspirin (Ecotrin -) 81 mg PO DAILY [facility] Last Admin: 09/19/17 10:20 Dose: 81 mg Atorvastatin Calcium (Lipitor -) 10 mg PO HS [facility] Last Admin: 09/18/17 21:52 Dose: 10 mg Brimonidine Tartrate (Alphagan P 0.1% -) 1 drop OU TID [facility] Last Admin: 09/19/17 15:30 Dose: 1 drop Chlorthalidone (Hygroton -) 100 mg PO DAILY [facility] Last Admin: 09/19/17 10:20 Dose: 100 mg Clopidogrel Bisulfate (Plavix -) 75 mg PO DAILY [facility] Last Admin: 09/19/17 10:20 Dose: 75 mg Collagenase (Santyl -) 1 applic TP DAILY [facility] Last Admin: 09/19/17 10:23 Dose: 1 applic Docusate Sodium (Colace -) 200 mg PO DAILY [facility] Last Admin: 09/19/17 10:20 Dose: 200 mg Docusate Sodium (Colace -) 300 mg PO [facility] Ethacrynic Acid (Edecrin -) 50 mg PO BID [facility] Last Admin: 09/19/17 10:22 Dose: 50 mg Ferrous Sulfate (Feosol -) 325 mg PO DAILY@0800 [facility] Last Admin: 09/19/17 10:21 Dose: 325 mg Folic Acid (Folic Acid -) 1 mg PO DAILY [facility] Last Admin: 09/19/17 10:20 Dose: 1 mg Gabapentin (Neurontin -) 600 mg PO TID [facility] Last Admin: 09/19/17 15:29 Dose: 600 mg Heparin Sodium (Porcine) (Heparin -) 5,000 unit SQ Q8H-IV [facility] Last Admin: 09/19/17 10:21 Dose: 5,000 unit Hydralazine HCl (Apresoline -) 75 mg PO TID [facility] Last Admin: 09/19/17 15:29 Dose: 75 mg Meropenem 500 mg/ Dextrose 100 mls @ 200 mls/hr IVPB DAILY@0600 [facility] Last Admin: 09/19/17 06:47 Dose: Not Given Insulin Aspart (Novolog Vial Sliding Scale -) 1 vial SQ TIDAC [facility]; Protocol Last Admin: 09/19/17 15:18 Dose: Not Given Insulin Detemir (Levemir Vial) 95 units SQ AM [facility] Last Admin: 09/19/17 07:53 Dose: Not Given Lactic Acid (Lac-Hydrin 12) 1 applic TP BID PRN PRN Reason: xerosis Metoprolol Tartrate (Lopressor -) 25 mg PO BID [facility] Last Admin: 09/19/17 10:21 Dose: 25 mg Non-Formulary Medication (Brinzolamide [Azopt]) 1 drop OU TID [facility] Nystatin (Nystop Powder -) 1 applic TP DAILY [facility] Last Admin: 09/19/17 10:23 Dose: Not Given Ofloxacin (Ocuflox 0.3% Eye Drops -) 1 drop OU TID [facility] Last Admin: 09/19/17 15:30 Dose: 1 drop Ondansetron HCl (Zofran Injection) 4 mg IVPUSH Q8H PRN PRN Reason: NAUSEA Oxycodone HCl (Roxicodone -) 5 mg PO Q8H PRN PRN Reason: PAIN LEVEL 6-10 Polyethylene Glycol (Miralax (For Daily Use) -) 17 gm PO BID [facility] Ranitidine HCl (Zantac -) 150 mg PO DAILY [facility] Last Admin: 09/19/17 10:21 Dose: 150 mg - Objective Vital Signs: Vital Signs Temperature 98.6 F 09/19/17 14:00 Pulse Rate 76 09/19/17 14:00 Respiratory Rate 22 09/19/17 14:00 Blood Pressure 152/68 09/19/17 14:00 O2 Sat by Pulse Oximetry (%) 94 L 09/19/17 14:00 Constitutional: Yes: Well Nourished, Mild Distress Eyes: Yes: WNL HENT: Yes: WNL Neck: Yes: WNL Cardiovascular: Yes: Regular Rate and Rhythm, S1, S2 Respiratory: Yes: Diminished Gastrointestinal: Yes: Normal Bowel Sounds, Soft Extremities: Yes: WNL Edema: No Labs: CBC, BMP 09/19/17 06:00 09/19/17 06:00 Problem List - Problems (1) Dyspnea Code(s): R06.00 - DYSPNEA, UNSPECIFIED (2) Back pain Code(s): M54.9 - DORSALGIA, UNSPECIFIED (3) CHF (congestive heart failure) Code(s): I50.9 - HEART FAILURE, UNSPECIFIED (4) Cervical myelopathy Code(s): G95.9 - DISEASE OF SPINAL CORD, UNSPECIFIED (5) HTN (hypertension) Code(s): I10 - ESSENTIAL (PRIMARY) HYPERTENSION (6) DOMINIK (obstructive sleep apnea) Code(s): G47.33 - OBSTRUCTIVE SLEEP APNEA (ADULT) (PEDIATRIC) (7) S/P TAVR (transcatheter aortic valve replacement) Code(s): Z95.2 - PRESENCE OF PROSTHETIC HEART VALVE (8) Acute on chronic kidney failure Code(s): N17.9 - ACUTE KIDNEY FAILURE, UNSPECIFIED; N18.9 - CHRONIC KIDNEY DISEASE, UNSPECIFIED (9) Diabetes Code(s): E11.9 - TYPE 2 DIABETES MELLITUS WITHOUT COMPLICATIONS Assessment/Plan ASSESSMENT AND PLAN: Cervical Spinal Stenosis s/p C2-T2 Laminectomies/Posterior Fusions DYSPNEA VOLUME OVERLOAD CAD Aortic Stenosis s/p AVR HTN DM CKD DOMINIK ANEMIA Toe Ulcer - bipap - diuretics - pain control - incentive spirometry - monitor urine output, creatinine - rehab/PT - monitor lytes - DVT prophylaxis - normal transfusion threshold DR HIDALGO
--- NOTE | 2017-09-19 16:32 | PN ---
Progress Note, Physician History of Present Illness: stable according to the family patient was confused currently patient is not confused wound looked at patient went into urinary retention foleys placed - Current Medication List Current Medications: Active Medications Acetaminophen (Tylenol -) 650 mg PO Q4H PRN PRN Reason: FEVER Last Admin: 09/19/17 02:30 Dose: 650 mg Amlodipine Besylate (Norvasc -) 10 mg PO DAILY [facility] Last Admin: 09/19/17 10:20 Dose: 10 mg Aspirin (Ecotrin -) 81 mg PO DAILY [facility] Last Admin: 09/19/17 10:20 Dose: 81 mg Atorvastatin Calcium (Lipitor -) 10 mg PO HS [facility] Last Admin: 09/18/17 21:52 Dose: 10 mg Bisacodyl (Dulcolax Suppository -) 10 mg RC DAILY PRN PRN Reason: CONSTIPATION Brimonidine Tartrate (Alphagan P 0.1% -) 1 drop OU TID [facility] Last Admin: 09/19/17 15:30 Dose: 1 drop Chlorthalidone (Hygroton -) 100 mg PO DAILY [facility] Last Admin: 09/19/17 10:20 Dose: 100 mg Clopidogrel Bisulfate (Plavix -) 75 mg PO DAILY [facility] Last Admin: 09/19/17 10:20 Dose: 75 mg Collagenase (Santyl -) 1 applic TP DAILY [facility] Last Admin: 09/19/17 10:23 Dose: 1 applic Docusate Sodium (Colace -) 200 mg PO DAILY [facility] Last Admin: 09/19/17 10:20 Dose: 200 mg Ethacrynic Acid (Edecrin -) 50 mg PO BID [facility] Last Admin: 09/19/17 10:22 Dose: 50 mg Ferrous Sulfate (Feosol -) 325 mg PO DAILY@0800 [facility] Last Admin: 09/19/17 10:21 Dose: 325 mg Folic Acid (Folic Acid -) 1 mg PO DAILY [facility] Last Admin: 09/19/17 10:20 Dose: 1 mg Gabapentin (Neurontin -) 600 mg PO TID [facility] Last Admin: 09/19/17 15:29 Dose: 600 mg Heparin Sodium (Porcine) (Heparin -) 5,000 unit SQ Q8H-IV [facility] Last Admin: 09/19/17 10:21 Dose: 5,000 unit Hydralazine HCl (Apresoline -) 75 mg PO TID [facility] Last Admin: 09/19/17 15:29 Dose: 75 mg Meropenem 500 mg/ Dextrose 100 mls @ 200 mls/hr IVPB DAILY@0600 [facility] Last Admin: 09/19/17 06:47 Dose: Not Given Insulin Aspart (Novolog Vial Sliding Scale -) 1 vial SQ TIDAC [facility]; Protocol Last Admin: 09/19/17 15:18 Dose: Not Given Insulin Detemir (Levemir Vial) 95 units SQ AM [facility] Last Admin: 09/19/17 07:53 Dose: Not Given Lactic Acid (Lac-Hydrin 12) 1 applic TP BID PRN PRN Reason: xerosis Metoprolol Tartrate (Lopressor -) 25 mg PO BID [facility] Last Admin: 09/19/17 10:21 Dose: 25 mg Non-Formulary Medication (Brinzolamide [Azopt]) 1 drop OU TID [facility] Nystatin (Nystop Powder -) 1 applic TP DAILY [facility] Last Admin: 09/19/17 10:23 Dose: Not Given Ofloxacin (Ocuflox 0.3% Eye Drops -) 1 drop OU TID [facility] Last Admin: 09/19/17 15:30 Dose: 1 drop Ondansetron HCl (Zofran Injection) 4 mg IVPUSH Q8H PRN PRN Reason: NAUSEA Oxycodone HCl (Roxicodone -) 5 mg PO Q8H PRN PRN Reason: PAIN LEVEL 6-10 Polyethylene Glycol (Miralax (For Daily Use) -) 17 gm PO BID [facility] Ranitidine HCl (Zantac -) 150 mg PO DAILY [facility] Last Admin: 09/19/17 10:21 Dose: 150 mg - Objective Vital Signs: Vital Signs Temperature 98.6 F 09/19/17 14:00 Pulse Rate 76 09/19/17 14:00 Respiratory Rate 22 09/19/17 14:00 Blood Pressure 152/68 09/19/17 14:00 O2 Sat by Pulse Oximetry (%) 94 L 09/19/17 14:00 Constitutional: Yes: No Distress, Calm HENT: Yes: Other (collar removed wound looked at wound apperas clean small gap at the nape of the neck clean does nto look infected) Cardiovascular: Yes: Regular Rate and Rhythm Respiratory: Yes: Regular, CTA Bilaterally Gastrointestinal: Yes: Normal Bowel Sounds, Soft Musculoskeletal: Yes: WNL Extremities: Yes: Other Neurological: Yes: Alert, Oriented Psychiatric: Yes: Alert, Oriented Labs: CBC, BMP 09/19/17 06:00 09/19/17 06:00 Assessment/Plan 67 yo male s/p exploration of spinal fusion, C2-T2 laminectomies and C7-T1 osteotomies, deformity correction and C2-T2 posterior fusion. r/o uti numbness leukocytosis Cervical Spinal Stenosis s/p C2-T2 Laminectomies/Posterior Fusions CAD Aortic Stenosis s/p AVR HTN DM CKD DOMINIK Toe Ulcer fever patients fever probably coming from lungs or from urinary retention plan continue foleys will watch for fever now continue bipap i think he is becoming hypoxic causing him to be confused
--- NOTE | 2017-09-19 17:00 | PN ---
Progress Note (short form) - Note Progress Note: Surgery POD #8 C2-T2 decompression and fusion. Patient seen and examined at bedside with surgical team and Dr Godinez. Pt c/o Right Hand pain between the thumb and index finger although slightly improved. He was febrile to 101.2 early this morning. Zimmerman inserted and put out 900ml immediately. Vital Signs Temp 99.4 F 18 05:00 Pulse 70 09/18/17 05:00 Resp 20 09/18/17 05:00 BP 140/67 09/18/17 05:00 Pulse Ox 96 09/18/17 07:44 Intake & Output 18 18 09/18/17 11:59 23:59 11:59 Intake Total 240 120 Output Total 700 Balance -460 120 Intake: Oral 240 120 Output: Urine 700 Zimmerman 700 Other: Voiding Method Indwelling Catheter Diaper Incontinent # Unmeasured Voids Zimmerman 1 Bowel Movement No Body Mass Index (BMI) 40.6 Urine culture- revealed no growth Blood cultures still pending-no growth after 2 days PE: A&Ox3,NAD unlabored resp CPAP Incision over posterior c-spine is c/d/i with surrounding tissue intact. No evidence of tracking erythema, Small area of slight separation at neck fold with no evidence of d/c. Pressure applied along the margins of the incision and edema, or collection. c-collar maintained in good position. right UE diffuse edema noticeably improved, still very sensitive to touch at web space of thumb and index. can initiate finger rom but limited 2/2 pain and edema Left UE sensation to light touch intact throughout, able to flex and extend at wrist and all digits, manager r d strength 3/5 B/L LE compartments soft, supple and non-tender. sensation to light touch intact throughout. Patient able to dorsi/plantar flex feet and lift feet off bed. Problem List - Problems (1) Cervical myelopathy Assessment/Plan: POD #7 multilevel cervical decompression and fusion . Continues to have low grade fevers, question of retained urine as possible source discussed with Dr Godinez after zimmerman put out 900ml. 1) IV ABX per ID if he continued to spike fevers with zimmerman will consider chest/ Abd/pelvis scan. 2) Conintue DVT prophylaxis 3) Maintain c-collar and keep dressing clean and dry 4) OOB as tolerated to chair- OK to stand and transfer with assist 5) OT for AROM, PROM and AAROM for UE and hand 6) F/u cultures 7) continue to trend labs 8) Elevate right UE 9) d/c planning for rehab Evaluation and plan discussed with Dr Tinoco Code(s): G95.9 - DISEASE OF SPINAL CORD, UNSPECIFIED
--- NOTE | 2017-09-19 17:51 | PN ---
Physical Exam: SUBJECTIVE: Patient seen and examined at bedside. On BiPAP. OBJECTIVE: Vital Signs Period Temp Pulse Resp BP Sys/Kauffman Pulse Ox Last 24 Hr 98.1 F-101.2 F 74-114 20-22 109-152/58-73 92-96 General/Neuro: A&Ox3, cervical collar in place, on BiPAP. Able to converse. CV: S1, S2, rrr Pulm: anterior breath sounds CTA Abdomen: soft, distended, firm, +BS Upper ext: 2+ pulses, mild bilateral edema, both arms tender patient does not want his arms to be touched Lower ext: 2+ pulses, warm, well-perfused, no edema; dressing on wound left great toe c/d/i Laboratory Results - last 24 hr 09/18/17 09/18/17 09/19/17 20:30 21:49 05:08 WBC RBC Hgb Hct MCV MCH MCHC RDW Plt Count MPV Absolute Neuts (auto) Neutrophils % Lymphocytes % Monocytes % Eosinophils % Basophils % Nucleated RBC % Anticoagulation Therapy No Result Required. Puncture Site Right radial ABG pH 7.37 ABG pCO2 at Pt Temp 35.8 ABG pO2 at Pt Temp 68.3 L ABG HCO3 20.4 L ABG O2 Sat (Measured) 93.7 ABG O2 Content 9.6 L* ABG Base Excess -3.9 L Yvon Test Positive O2 Delivery Device N/c Oxygen Flow Rate 4lpm Vent Mode No Result Required. Vent Rate No Result Required. Mechanical Rate No Result Required. Pressure Support Vent No Result Required. Sodium Potassium Chloride Carbon Dioxide Anion Gap BUN Creatinine Creat Clearance w eGFR POC Glucometer 209 220 Random Glucose Calcium Phosphorus Magnesium Total Bilirubin AST ALT Alkaline Phosphatase Total Protein Albumin 09/19/17 09/19/17 09/19/17 06:00 06:00 12:14 WBC 16.0 H RBC 2.81 L Hgb 7.8 L Hct 23.4 L MCV 83.1 MCH 27.6 MCHC 33.2 RDW 15.5 Plt Count 338 MPV 8.8 Absolute Neuts (auto) 13.2 Neutrophils % 82.4 Lymphocytes % 3.6 L D Monocytes % 12.5 H Eosinophils % 1.1 Basophils % 0.4 Nucleated RBC % 0 Anticoagulation Therapy Puncture Site ABG pH ABG pCO2 at Pt Temp ABG pO2 at Pt Temp ABG HCO3 ABG O2 Sat (Measured) ABG O2 Content ABG Base Excess Yvon Test O2 Delivery Device Oxygen Flow Rate Vent Mode Vent Rate Mechanical Rate Pressure Support Vent Sodium 133 L Potassium 5.3 H Chloride 101 Carbon Dioxide 20 L Anion Gap 12 BUN 84 H Creatinine 5.1 H Creat Clearance w eGFR 11.30 POC Glucometer 242 Random Glucose 208 H D Calcium 8.1 L Phosphorus 5.1 H Magnesium 2.6 H Total Bilirubin 0.4 D AST 50 H D ALT 32 Alkaline Phosphatase 171 H D Total Protein 5.8 L Albumin 1.9 L Active Medications Generic Name Dose Route Start Last Admin Trade Name Freq PRN Reason Stop Dose Admin Acetaminophen 650 mg 09/14/17 08:50 09/19/17 02:30 Tylenol - PO 650 mg Q4H PRN Administration FEVER Amlodipine Besylate 10 mg 09/14/17 10:00 09/19/17 10:20 Norvasc - PO 10 mg DAILY [facility] Administration Aspirin 81 mg 09/14/17 10:00 09/19/17 10:20 Ecotrin - PO 81 mg DAILY [facility] Administration Atorvastatin Calcium 10 mg 09/14/17 22:00 09/18/17 21:52 Lipitor - PO 10 mg HS [facility]NA Administration Bisacodyl 10 mg 09/20/17 10:00 Dulcolax Suppository - RC DAILY PRN CONSTIPATION Brimonidine Tartrate 1 drop 09/14/17 14:00 09/19/17 15:30 Alphagan P 0.1% - OU 1 drop TID [facility] Administration Chlorthalidone 100 mg 09/19/17 10:00 09/19/17 10:20 Hygroton - PO 100 mg DAILY E[facility]NA Administration Clopidogrel Bisulfate 75 mg 09/14/17 10:00 09/19/17 10:20 Plavix - PO 75 mg DAILY E[facility] Administration Collagenase 1 applic 09/14/17 10:00 09/19/17 10:23 Santyl - TP 1 applic DAILY [facility] Administration Docusate Sodium 200 mg 09/14/17 10:00 09/19/17 10:20 Colace - PO 200 mg DAILY [facility] Administration Ethacrynic Acid 50 mg 09/18/17 22:00 09/19/17 10:22 Edecrin - PO 50 mg BID [facility] Administration Ferrous Sulfate 325 mg 09/15/17 08:00 09/19/17 10:21 Feosol - PO 325 mg DAILY@0800 [facility] Administration Folic Acid 1 mg 09/14/17 10:00 09/19/17 10:20 Folic Acid - PO 1 mg DAILY [facility] Administration Gabapentin 600 mg 09/14/17 14:00 09/19/17 15:29 Neurontin - PO 600 mg TID [facility] Administration Heparin Sodium (Porcine) 5,000 unit 09/14/17 14:00 09/19/17 17:48 Heparin - SQ 5,000 unit Q8H-IV [facility] Administration Hydralazine HCl 75 mg 09/14/17 14:00 09/19/17 15:29 Apresoline - PO 75 mg TID [facility] Administration Meropenem 500 mg/ Dextrose 100 mls @ 200 mls/hr 09/16/17 15:00 09/19/17 10:00 IVPB 200 mls/hr DAILY@0600 [facility] Administration Insulin Aspart 1 vial 09/14/17 11:00 09/19/17 15:18 Novolog Vial Sliding Scale - SQ Not Given TIDAC [facility] Protocol Insulin Detemir 95 units 09/15/17 07:00 09/19/17 07:53 Levemir Vial SQ Not Given AM [facility] Lactic Acid 1 applic 09/14/17 08:50 Lac-Hydrin 12 TP BID PRN xerosis Metoprolol Tartrate 25 mg 09/14/17 10:00 09/19/17 10:21 Lopressor - PO 25 mg BID [facility] Administration Non-Formulary Medication 1 drop 09/14/17 14:00 Brinzolamide [Azopt] OU TID [facility] Nystatin 1 applic 09/14/17 10:00 09/19/17 10:23 Nystop Powder - TP Not Given DAILY [facility] Ofloxacin 1 drop 09/14/17 14:00 09/19/17 15:30 Ocuflox 0.3% Eye Drops - OU 1 drop TID [facility] Administration Ondansetron HCl 4 mg 09/14/17 08:50 Zofran Injection IVPUSH Q8H PRN NAUSEA Oxycodone HCl 5 mg 09/18/17 20:12 Roxicodone - PO Q8H PRN PAIN LEVEL 6-10 Polyethylene Glycol 17 gm 09/19/17 22:00 Miralax (For Daily Use) - PO BID [facility] Ranitidine HCl 150 mg 09/14/17 10:00 09/19/17 10:21 Zantac - PO 150 mg DAILY [facility] Administration ASSESSMENT/PLAN 67 year-old male with a PMH significant for HTN, HLD, CAD s/p stent, s/p TAVR, IDDM, obesity, sleep apnea, CKD and paraplegia. Admitted for cervical stenosis with instability. Cervical stenosis with instability s/p exploration of spinal fusion, C2-T2 laminectomies, C7-C11 osteotomies, deformity correction, C2-T2 posterior fusion on 09/11 Paraplegia --discussed with Dr. Tinoco, ready for discharge from surgical perspective --perioperative acute blood loss anemia resolved; h/h stable --oxycodone PRN, gabapentin Fever --POD #8 --spiked fever for seventh consecutive day, WBC trending up now 16k --09/13 blood cultures negative; 09/16 blood cultures NGTD --UA on 09/16 showed pyuria but two urine cultures negative --US negative for DVT --serial CXR's not suggestive of infectious process --ID following, recommends continuation of meropenem (day #4) --discussed with Dr. Tinoco, consider story-scanning Urinary retention Volume overload --generalized edema --09/18 CXR with pulmonary congestion and pleural effusions --abdomen distended, placed zimmerman with 1.8L output --continue chlorthalidone and increase ethacrynic acid to 75mg BID MSSA left great toe ulcer --granulating wound, no drainage seen today --discussed with Dr. Hensley from podiatry, low suspicion that foot ulcer is source of fever; if no other source identified, will proceed with bone scan --continue meropenem --ID following Right hand/forearm swelling secondary to IV infiltration --improved --doppler negative for DVT Hypertension --BP stable --continue metoprolol, amlodipine, hydralazine Hyperlipidemia --continue Lipitor Coronary artery disease s/p stent s/p TAVR --continue metoprolol, amlodipine, Lipitor, ASA, Plavix IDDM --continue Levemir 95U daily --Novolog sliding scale coverage CKD --Cr 5.1, close to baseline --electrolytes OK DOMINIK --CPAP at night and PRN FEN Fluids: PO intake adequate Electrolytes: replete as indicated Nutrition: chopped diet, diabetic, low sodium, thin liquids DVT prophylaxis: subq heparin Physical therapy daily Dispo: continues to require inpatient care. Full code. Visit type - Emergency Visit Emergency Visit: Yes ED Registration Date: 09/11/17 Care time: The patient presented to the Emergency Department on the above date and was hospitalized for further evaluation of their emergent condition. - New Patient This patient is new to me today: No - Critical Care Critical Care patient: No
[2017-09-19] MEDS ORDERED: PT OWN MED DRAWER 7, Y5N ONE (21:25)
[2017-09-19] MEDS: ATORVASTATIN CA 10 MG TABLET (FP) PO SCH (21:30)
[2017-09-19] MEDS: POLYETHYLENE GLYCOL 3350 119 GM BTL PO SCH (21:31)
[2017-09-19] MEDS ORDERED: DOCUSATE SODIUM 100 MG CAPSULE (FP) PO SCH (22:00)
--- NOTE | 2017-09-19 22:02 | PN ---
Physical Exam: SUBJECTIVE: Patient seen and examined at bedside. On BiPAP. OBJECTIVE: Vital Signs Period Temp Pulse Resp BP Sys/Kauffman Pulse Ox Last 24 Hr 98.1 F-101.2 F 74-114 20-22 109-152/58-73 92-95 General/Neuro: A&Ox3, cervical collar in place, on BiPAP. Sleepy. CV: S1, S2, rrr Pulm: anterior breath sounds CTA Abdomen: soft, distended, firm, +BS Upper ext: 2+ pulses, mild bilateral edema, both arms tender patient does not want his arms to be touched Lower ext: 2+ pulses, warm, well-perfused, no edema; dressing on wound left great toe c/d/i Active Medications Generic Name Dose Route Start Last Admin Trade Name Freq PRN Reason Stop Dose Admin Acetaminophen 650 mg 09/14/17 08:50 09/19/17 02:30 Tylenol - PO 650 mg Q4H PRN Administration FEVER Amlodipine Besylate 10 mg 09/14/17 10:00 09/19/17 10:20 Norvasc - PO 10 mg DAILY [facility] Administration Aspirin 81 mg 09/14/17 10:00 09/19/17 10:20 Ecotrin - PO 81 mg DAILY [facility] Administration Atorvastatin Calcium 10 mg 09/14/17 22:00 09/19/17 21:30 Lipitor - PO 10 mg HS [facility] Administration Bisacodyl 10 mg 09/20/17 10:00 Dulcolax Suppository - RC DAILY PRN CONSTIPATION Brimonidine Tartrate 1 drop 09/14/17 14:00 09/19/17 21:30 Alphagan P 0.1% - OU 1 drop TID [facility] Administration Chlorthalidone 100 mg 09/19/17 10:00 09/19/17 10:20 Hygroton - PO 100 mg DAILY [facility] Administration Clopidogrel Bisulfate 75 mg 09/14/17 10:00 09/19/17 10:20 Plavix - PO 75 mg DAILY [facility] Administration Collagenase 1 applic 09/14/17 10:00 09/19/17 10:23 Santyl - TP 1 applic DAILY [facility] Administration Docusate Sodium 200 mg 09/14/17 10:00 09/19/17 10:20 Colace - PO 200 mg DAILY [facility] Administration Ethacrynic Acid 75 mg 09/19/17 21:52 Edecrin - PO BID E[facility] Ferrous Sulfate 325 mg 09/15/17 08:00 09/19/17 10:21 Feosol - PO 325 mg DAILY@0800 [facility] Administration Folic Acid 1 mg 09/14/17 10:00 09/19/17 10:20 Folic Acid - PO 1 mg DAILY [facility] Administration Gabapentin 600 mg 09/14/17 14:00 09/19/17 21:30 Neurontin - PO 600 mg TID [facility] Administration Heparin Sodium (Porcine) 5,000 unit 09/14/17 14:00 09/19/17 17:48 Heparin - SQ 5,000 unit Q8H-IV [facility] Administration Hydralazine HCl 75 mg 09/14/17 14:00 09/19/17 21:30 Apresoline - PO 75 mg TID [facility] Administration Meropenem 500 mg/ Dextrose 100 mls @ 200 mls/hr 09/16/17 15:00 09/19/17 10:00 IVPB 200 mls/hr DAILY@0600 [facility] Administration Insulin Aspart 1 vial 09/14/17 11:00 09/19/17 21:41 Novolog Vial Sliding Scale - SQ 4 units TIDAC [facility] Administration Protocol Insulin Detemir 95 units 09/15/17 07:00 09/19/17 07:53 Levemir Vial SQ Not Given AM [facility] Lactic Acid 1 applic 09/14/17 08:50 Lac-Hydrin 12 TP BID PRN xerosis Metoprolol Tartrate 25 mg 09/14/17 10:00 09/19/17 21:30 Lopressor - PO 25 mg BID [facility] Administration Non-Formulary Medication 1 drop 09/14/17 14:00 Brinzolamide [Azopt] OU TID [facility] Nystatin 1 applic 09/14/17 10:00 09/19/17 10:23 Nystop Powder - TP Not Given DAILY [facility] Ofloxacin 1 drop 09/14/17 14:00 09/19/17 21:29 Ocuflox 0.3% Eye Drops - OU 1 drop TID [facility] Administration Ondansetron HCl 4 mg 09/14/17 08:50 Zofran Injection IVPUSH Q8H PRN NAUSEA Oxycodone HCl 5 mg 09/18/17 20:12 Roxicodone - PO Q8H PRN PAIN LEVEL 6-10 Polyethylene Glycol 17 gm 09/19/17 22:00 09/19/17 21:31 Miralax (For Daily Use) - PO 17 grams BID [facility] Administration Ranitidine HCl 150 mg 09/14/17 10:00 09/19/17 10:21 Zantac - PO 150 mg DAILY [facility] Administration ASSESSMENT/PLAN 67 year-old male with a PMH significant for HTN, HLD, CAD s/p stent, s/p TAVR, IDDM, obesity, sleep apnea, CKD and paraplegia. Admitted for cervical stenosis with instability. Cervical stenosis with instability s/p exploration of spinal fusion, C2-T2 laminectomies, C7-C11 osteotomies, deformity correction, C2-T2 posterior fusion on 09/11 Paraplegia --discussed with Dr. Tinoco, ready for discharge from surgical perspective --perioperative acute blood loss anemia resolved; h/h stable --oxycodone PRN, gabapentin Fever --POD #7 --spiked fever for sixth consecutive day, WBC trending up now 13.9k --09/13 blood cultures negative; 09/16 blood cultures NGTD --UA on 09/16 showed pyuria but two urine cultures negative --US negative for DVT --serial CXR's not suggestive of infectious process --ID following, continue meropenem Volume overload --generalized edema --CXR pending --switch HCTZ to chlorthalidone and start ethacrynic acid 50mg BID MSSA left great toe ulcer --granulating wound, no drainage seen today --discussed with Dr. Hensley from podiatry, low suspicion that foot ulcer is source of fever; if no other source identified, will proceed with bone scan --continue meropenem --ID following Right hand/forearm swelling secondary to IV infiltration --improved --doppler negative for DVT Hypertension --BP stable --continue metoprolol, amlodipine, hydralazine Hyperlipidemia --continue Lipitor Coronary artery disease s/p stent s/p TAVR --continue metoprolol, amlodipine, Lipitor, ASA, Plavix IDDM --continue Levemir 95U daily --Novolog sliding scale coverage CKD --Cr 5.1, close to baseline --electrolytes OK DOMINIK --CPAP at night and PRN FEN Fluids: PO intake adequate Electrolytes: replete as indicated Nutrition: chopped diet, diabetic, low sodium, thin liquids DVT prophylaxis: subq heparin Physical therapy daily Dispo: continues to require inpatient care. Full code. Visit type - Emergency Visit Emergency Visit: Yes ED Registration Date: 09/11/17 Care time: The patient presented to the Emergency Department on the above date and was hospitalized for further evaluation of their emergent condition. - New Patient This patient is new to me today: No - Critical Care Critical Care patient: No
[2017-09-20] MEDS: HEPARIN NA (PORCINE) 5,000 UNITS/ML 1ML VIAL SQ SCH ×3 (02:44→17:31)
[2017-09-20] MEDS: oxyCODONE HCL 5 MG TABLET PO PRN ×2 (02:45→11:08)
[2017-09-20] MEDS ORDERED: PT OWN MED DRAWER 7, Y5N ONE (06:10)
[2017-09-20] MEDS: MEROPENEM 500 MG in DEXTROSE 5%-WATER 100 ML IVPB SCH (06:18)
[2017-09-20] MEDS: hydrALAZINE HCL 25 MG TABLET (FP) PO SCH ×3 (06:18→22:31)
[2017-09-20] MEDS: BRIMONIDINE TARTRATE 0.1% OPHTHALMIC 5 ML BOTTLE OU SCH ×4 (06:18→22:36)
[2017-09-20] MEDS: OFLOXACIN 0.3% OPHTHALMIC SOLUTION 5 ML BOTTLE OU SCH ×3 (06:19→22:36)
[2017-09-20] MEDS: GABAPENTIN 300 MG CAPSULE (FP) PO SCH ×3 (06:19→22:31)
[2017-09-20] MEDS: INSULIN SLIDING SCALE (NOVOLOG) 1 VIAL SQ SCH ×4 (06:19→16:00)
[2017-09-20] MEDS: INSULIN (LEVEMIR) 100 UNITS/ML UNITS SQ SCH (06:19)
[2017-09-20 06:23] LABS: BASO % 0.3 % (0-2.0); EOS % 0.4 % (0-4.5); HEMATOCRIT 22.4 % (35.4-49); HEMOGLOBIN 7.3 GM/dL (11.7-16.9); LYMPH % 3.7 % (8-40); MCH 27.1 pg (25.7-33.7); MCHC 32.8 g/dl (32.0-35.9); MEAN CELL VOLUME 82.5 fl (80-96); MEAN PLT VOLUME 8.7 fl (7.5-11.1); MONO % 12.9 % (3.8-10.2); NEUT % 82.7 % (42.8-82.8); PLATELET COUNT 376 K/MM3 (134-434); RBC 2.71 M/mm3 (4.00-5.60); RDW 15.5 % (11.9-15.9); WHITE BLOOD COUNT 15.6 K/mm3 (4.0-10.0)
[2017-09-20 06:46] LABS: CHLORIDE 101 mmol/L (98-107); POTASSIUM 5.1 mmol/L (3.5-5.1); SODIUM 134 mmol/L (136-145)
[2017-09-20 06:54] LABS: ALBUMIN 1.8 g/dl (3.4-5.0); ALK PHOS 144 U/L (45-117); ANION GAP 13 (8-16); BILIRUBIN,TOTAL 0.3 mg/dL (0.2-1.0); BLOOD UREA NITROGEN 92 mg/dL (7-18); CO2 20 mmol/L (21-32); GLUCOSE,RANDOM 212 mg/dL (74-106); MAGNESIUM 3.1 mg/dL (1.8-2.4); SGOT/AST 44 U/L (15-37); SGPT/ALT 31 U/L (12-78); TOT PROT 5.7 g/dl (6.4-8.2)
[2017-09-20] MEDS ORDERED: BISACODYL 10 MG SUPP.RECT RC PRN (10:00)
[2017-09-20] MEDS: RANITIDINE HCL 150 MG TABLET (FP) PO SCH (11:07)
[2017-09-20] MEDS: DOCUSATE SODIUM 100 MG CAPSULE (FP) PO SCH (11:07)
[2017-09-20] MEDS: amLODIPine BESYLATE 10 MG TABLET (FP) PO SCH (11:07)
[2017-09-20] MEDS: FERROUS SO4 325 MG TABLET (FP) PO SCH (11:08)
[2017-09-20] MEDS: ASPIRIN COATED 81 MG TABLET.EC PO SCH (11:08)
[2017-09-20] MEDS: FOLIC ACID 1 MG TABLET (FP) PO SCH (11:08)
[2017-09-20] MEDS: METOPROLOL TARTRATE 25 MG TABLET (FP) PO SCH ×2 (11:09→22:33)
[2017-09-20] MEDS: ETHACRYNIC ACID 25 MG TABLET PO SCH ×2 (11:10→22:32)
[2017-09-20] MEDS: CHLORTHALIDONE 25 MG TABLET PO SCH (11:10)
[2017-09-20] MEDS: POLYETHYLENE GLYCOL 3350 119 GM BTL PO SCH ×2 (11:11→22:43)
[2017-09-20] MEDS: NYSTATIN POWDER 100,000 UNITS/GM - 15 GM TOPICAL POWDER TP SCH (11:12)
[2017-09-20] MEDS: CLOPIDOGREL BISULFATE 75 MG TABLET (FP) PO SCH (11:12)
--- NOTE | 2017-09-20 13:28 | PN ---
Progress Note (short form) - Note Progress Note: PULMONARY More short of breath. Remains on BiPAP. Diuresed well yesterday. Last Vital Signs Temp Pulse Resp BP Pulse Ox 99 F 80 20 137/80 95 09/20/17 10:00 09/20/17 10:00 09/20/17 10:00 09/20/17 10:00 09/20/17 07:56 Intake & Output 09/17/17 09/18/17 09/19/17 09/20/17 23:59 23:59 23:59 23:59 Intake Total 240 1670 570 100 Output Total 700 2500 500 Balance -460 1670 -1930 -400 Gen: tachypneic on BiPAP Heart: RRR Lung: scattered rhonchi Abd:soft, nontender Ext: + edema CBC, BMP 09/20/17 05:30 09/20/17 05:30 Active Medications Acetaminophen (Tylenol -) 650 mg PO Q4H PRN PRN Reason: FEVER Last Admin: 09/19/17 02:30 Dose: 650 mg Amlodipine Besylate (Norvasc -) 10 mg PO DAILY [facility] Last Admin: 09/20/17 11:07 Dose: 10 mg Aspirin (Ecotrin -) 81 mg PO DAILY [facility] Last Admin: 09/20/17 11:08 Dose: 81 mg Atorvastatin Calcium (Lipitor -) 10 mg PO HS [facility] Last Admin: 09/19/17 21:30 Dose: 10 mg Bisacodyl (Dulcolax Suppository -) 10 mg RC DAILY PRN PRN Reason: CONSTIPATION Brimonidine Tartrate (Alphagan P 0.1% -) 1 drop OU TID [facility] Last Admin: 09/20/17 06:18 Dose: 1 drop Chlorthalidone (Hygroton -) 100 mg PO DAILY [facility] Last Admin: 09/20/17 11:10 Dose: 100 mg Clopidogrel Bisulfate (Plavix -) 75 mg PO DAILY [facility] Last Admin: 09/20/17 11:12 Dose: 75 mg Collagenase (Santyl -) 1 applic TP DAILY [facility] Last Admin: 09/19/17 10:23 Dose: 1 applic Docusate Sodium (Colace -) 200 mg PO DAILY [facility] Last Admin: 09/20/17 11:07 Dose: 200 mg Ethacrynic Acid (Edecrin -) 75 mg PO BID [facility] Last Admin: 09/20/17 11:10 Dose: 75 mg Ferrous Sulfate (Feosol -) 325 mg PO DAILY@0800 [facility] Last Admin: 09/20/17 11:08 Dose: 325 mg Folic Acid (Folic Acid -) 1 mg PO DAILY [facility] Last Admin: 09/20/17 11:08 Dose: 1 mg Gabapentin (Neurontin -) 600 mg PO TID [facility] Last Admin: 09/20/17 06:19 Dose: Not Given Heparin Sodium (Porcine) (Heparin -) 5,000 unit SQ Q8H-IV [facility] Last Admin: 09/20/17 11:11 Dose: 5,000 unit Hydralazine HCl (Apresoline -) 75 mg PO TID [facility] Last Admin: 09/20/17 06:18 Dose: 75 mg Meropenem 500 mg/ Dextrose 100 mls @ 200 mls/hr IVPB DAILY@0600 [facility] Last Admin: 09/20/17 06:18 Dose: Not Given Insulin Aspart (Novolog Vial Sliding Scale -) 1 vial SQ TIDAC [facility]; Protocol Last Admin: 09/20/17 11:12 Dose: Not Given Insulin Detemir (Levemir Vial) 95 units SQ AM [facility] Last Admin: 09/20/17 06:19 Dose: Not Given Lactic Acid (Lac-Hydrin 12) 1 applic TP BID PRN PRN Reason: xerosis Metoprolol Tartrate (Lopressor -) 25 mg PO BID [facility] Last Admin: 09/20/17 11:09 Dose: 25 mg Non-Formulary Medication (Brinzolamide [Azopt]) 1 drop OU TID [facility] Nystatin (Nystop Powder -) 1 applic TP DAILY [facility] Last Admin: 09/20/17 11:12 Dose: Not Given Ofloxacin (Ocuflox 0.3% Eye Drops -) 1 drop OU TID [facility] Last Admin: 09/20/17 06:19 Dose: 1 drop Ondansetron HCl (Zofran Injection) 4 mg IVPUSH Q8H PRN PRN Reason: NAUSEA Oxycodone HCl (Roxicodone -) 5 mg PO Q8H PRN PRN Reason: PAIN LEVEL 6-10 Last Admin: 09/20/17 11:08 Dose: 5 mg Polyethylene Glycol (Miralax (For Daily Use) -) 17 gm PO BID [facility] Last Admin: 09/20/17 11:11 Dose: 17 grams Ranitidine HCl (Zantac -) 150 mg PO DAILY [facility] Last Admin: 09/20/17 11:07 Dose: 150 mg A/P Cervical Spinal Stenosis s/p C2-T2 Laminectomies/Posterior Fusions Volume Overload Acute on Chronic Renal Failure r/o CHF CAD Aortic Stenosis s/p AVR HTN DM CKD DOMINIK Anemia Toe Ulcer - renal eval - continue ethacrynic acid, pt allergic to lasix - monitor urine output, creatinine - O2 to keep SpO2 >90% - BiPAP to assist in work of breathing - echocardiogram - pain control - incentive spirometry - rehab/PT - DVT prophylaxis
--- NOTE | 2017-09-20 13:45 | CONSULT ---
Consult Consult Specialty:: Nephrology Reason for Consultation:: CKD with fluid overload - History of Present Illness Chief Complaint: s/p c2 to ts decompression and fusion History of Present Illness: Pt is a 67 year old male with pmhx of advanced CKD, HTN, DM, HLD, obesity, and sleep apnea. wo was admitted for c2 to t2 decompression and fusion. He was noted to have elevated creatinine. Pt has also developed fluid overload and chf on cxr. He is not responding to diuretics. He is allergic to lasix. He was hyperkalemic yesterday. He follows with a logistics account manager in the [place], Dr Mederos, who has told him several months ago that he should prepare for HD. He complains of shortness of breath. He has a zimmerman catheter in place however is not making much urine. He also has CAD. He denies chest pain. He agrees to starting HD today. I discussed dialysis with him at length. - History Source History Provided By: Patient, Medical Record - Past Medical History Cardio/Vascular: Yes: AFIB, CHF, HTN, Other (TAVR) Pulmonary: Yes: COPD, Sleep Apnea Gastrointestinal: Yes: GERD, Other (gastroparesis) Renal/: Yes: Renal Inusuff Musculoskeletal: Yes: Chronic low back pain, Paraplegia Endocrine: Yes: Diabetes Mellitus - Past Surgical History Past Surgical History: Yes: Valve Replacement - Alcohol/Substance Use Hx Alcohol Use: No - Smoking History Smoking history: Former smoker Have you smoked in the past 12 months: No - Social History History of Recent Travel: No Home Medications - Allergies Allergies/Adverse Reactions: Allergies Allergy/AdvReac Type Severity Reaction Status Date / Time furosemide [From Lasix] Allergy Verified 09/11/17 12:33 latex Allergy Verified 09/11/17 12:33 - Home Medications Home Medications: Ambulatory Orders Amlodipine Besylate 10 mg PO DAILY 07/08/17 Cholecalciferol (Vitamin D3) [Vitamin D3] 2,000 unit PO DAILY 07/08/17 Docusate Sodium 200 mg PO DAILY 07/08/17 Gabapentin 600 mg PO TID 07/08/17 Hydralazine HCl 75 mg PO TID 07/08/17 Hydrochlorothiazide 25 mg PO DAILY 07/08/17 Metoprolol Tartrate 25 mg PO BID 07/08/17 Ranitidine [Zantac -] 150 mg PO DAILY 07/08/17 Sennosides [Senna] 8.6 mg PO DAILY 07/08/17 Simvastatin 20 mg PO DAILY 07/08/17 Brimonidine Tartrate [Alphagan P 0.1% -] 1 drop OU TID 07/10/17 Brinzolamide [Azopt] 1 drop OU TID 07/10/17 Ofloxacin 0.3% Ophth Soln [Ocuflox -] 1 drop OU TID 07/10/17 Insulin Sliding Scale [Novolog Vial Sliding Scale -] 0 units SQ ACHS 07/16/17 Aspirin [Ecotrin] 81 mg PO DAILY 09/06/17 Clopidogrel Bisulfate [Plavix] 75 mg PO DAILY 09/06/17 Insulin Glargine,Hum.rec.anlog [Toujeo Solostar] 95 unit SQ DAILY 09/06/17 Family Disease History - Family Disease History Family History: Denies Review of Systems - Review of Systems Constitutional: reports: Malaise Eyes: reports: No Symptoms HENT: reports: Hearing Loss Neck: reports: Other (s/p decompression) Respiratory: reports: No Symptoms Gastrointestinal: reports: No Symptoms Genitourinary: reports: No Symptoms Musculoskeletal: reports: Back Pain, Muscle Weakness Integumentary: reports: No Symptoms Neurological: reports: No Symptoms Endocrine: reports: No Symptoms Hematology/Lymphatic: reports: No Symptoms Psychiatric: reports: No Symptoms Physical Exam Vital Signs: Vital Signs Temperature 99 F 09/20/17 10:00 Pulse Rate 80 09/20/17 10:00 Respiratory Rate 20 09/20/17 10:00 Blood Pressure 137/80 09/20/17 10:00 O2 Sat by Pulse Oximetry (%) 95 09/20/17 07:56 Constitutional: Yes: Calm Eyes: Yes: Conjunctiva Clear Cardiovascular: Yes: S1, S2 Respiratory: Yes: On BiPap, Rhonchi Gastrointestinal: Yes: Soft, Abdomen, Obese Renal/: Yes: Zimmerman Present Musculoskeletal: Yes: Muscle Weakness Edema: Yes Edema: LUE: 1+, RUE: 1+, LLE: 2+, RLE: 2+ Neurological: Yes: Oriented Psychiatric: Yes: Oriented Labs: CBC, BMP 09/20/17 05:30 09/20/17 05:30 Laboratory Tests 09/15/17 09/19/17 09/20/17 06:30 06:00 05:30 WBC 13.3 H 15.6 H Hgb 7.8 L 7.3 L Imaging - Results Chest X-ray: Report Reviewed Problem List - Problems (1) Acute on chronic kidney failure Code(s): N17.9 - ACUTE KIDNEY FAILURE, UNSPECIFIED; N18.9 - CHRONIC KIDNEY DISEASE, UNSPECIFIED (2) CHF (congestive heart failure) Code(s): I50.9 - HEART FAILURE, UNSPECIFIED (3) Diabetes Code(s): E11.9 - TYPE 2 DIABETES MELLITUS WITHOUT COMPLICATIONS (4) HTN (hypertension) Code(s): I10 - ESSENTIAL (PRIMARY) HYPERTENSION Assessment/Plan Current Medications Generic Name Dose Route Start Last Admin Trade Name Freq PRN Reason Stop Dose Admin Acetaminophen 650 mg 09/14/17 08:50 09/19/17 02:30 Tylenol - PO 650 mg Q4H PRN Administration FEVER Amlodipine Besylate 10 mg 09/14/17 10:00 09/20/17 11:07 Norvasc - PO 10 mg DAILY ELENA Administration Aspirin 81 mg 09/14/17 10:00 09/20/17 11:08 Ecotrin - PO 81 mg DAILY ELENA Administration Atorvastatin Calcium 10 mg 09/14/17 22:00 09/19/17 21:30 Lipitor - PO 10 mg HS ELENA Administration Bisacodyl 10 mg 09/20/17 10:00 Dulcolax Suppository - RC DAILY PRN CONSTIPATION Brimonidine Tartrate 1 drop 09/14/17 14:00 09/20/17 06:18 Alphagan P 0.1% - OU 1 drop TID ELENA Administration Chlorthalidone 100 mg 09/19/17 10:00 09/20/17 11:10 Hygroton - PO 100 mg DAILY ELENA Administration Clopidogrel Bisulfate 75 mg 09/14/17 10:00 09/20/17 11:12 Plavix - PO 75 mg DAILY ELENA Administration Collagenase 1 applic 09/14/17 10:00 09/19/17 10:23 Santyl - TP 1 applic DAILY ELENA Administration Docusate Sodium 200 mg 09/14/17 10:00 09/20/17 11:07 Colace - PO 200 mg DAILY ELENA Administration Ethacrynic Acid 75 mg 09/19/17 22:00 09/20/17 11:10 Edecrin - PO 75 mg BID ELENA Administration Ferrous Sulfate 325 mg 09/15/17 08:00 09/20/17 11:08 Feosol - PO 325 mg DAILY@0800 [facility] Administration Folic Acid 1 mg 09/14/17 10:00 09/20/17 11:08 Folic Acid - PO 1 mg DAILY [facility] Administration Gabapentin 600 mg 09/14/17 14:00 09/20/17 06:19 Neurontin - PO Not Given TID [facility] Heparin Sodium (Porcine) 5,000 unit 09/14/17 14:00 09/20/17 11:11 Heparin - SQ 5,000 unit Q8H-IV [facility] Administration Hydralazine HCl 75 mg 09/14/17 14:00 09/20/17 06:18 Apresoline - PO 75 mg TID [facility] Administration Meropenem 500 mg/ Dextrose 100 mls @ 200 mls/hr 09/16/17 15:00 09/20/17 06:18 IVPB Not Given DAILY@0600 [facility] Insulin Aspart 1 vial 09/14/17 11:00 09/20/17 11:12 Novolog Vial Sliding Scale - SQ [facility] Insulin Detemir 95 units 09/15/17 07:00 09/20/17 06:19 Levemir Vial SQ Not Given AM [facility] Lactic Acid 1 applic 09/14/17 08:50 Lac-Hydrin 12 TP BID PRN xerosis Metoprolol Tartrate 25 mg 09/14/17 10:00 09/20/17 11:09 Lopressor - PO 25 mg BID [facility] Administration Non-Formulary Medication 1 drop 09/14/17 14:00 Brinzolamide [Azopt] OU TID [facility] Nystatin 1 applic 09/14/17 10:00 09/20/17 11:12 Nystop Powder - TP Not Given DAILY [facility] Ofloxacin 1 drop 09/14/17 14:00 09/20/17 06:19 Ocuflox 0.3% Eye Drops - OU 1 drop TID [facility] Administration Ondansetron HCl 4 mg 09/14/17 08:50 Zofran Injection IVPUSH Q8H PRN NAUSEA Oxycodone HCl 5 mg 09/18/17 20:12 09/20/17 11:08 Roxicodone - PO 5 mg Q8H PRN Administration PAIN LEVEL 6-10 Polyethylene Glycol 17 gm 09/19/17 22:00 09/20/17 11:11 Miralax (For Daily Use) - PO 17 grams BID [facility] Administration Ranitidine HCl 150 mg 09/14/17 10:00 09/20/17 11:07 Zantac - PO 150 mg DAILY E[facility] Administration Impression 1. CKD 2. DM 3. cervical spine disease 4. HTN 5. CHF 6. obesity 7. anemia 8. DOMINIK 9. HLD 10. volume overload 11. s/p c2 to t2 decompression and fusion Plan - discussed treatment options at length - pt is not responding to diuretics and we are limited in diuretics choices as he is allergic to lasix and is hyperkalemic - vascular surgery to place catheter - will arrange for HD today - follow up repeat cxr - cont bipap as needed - discussed with medical team - check renal ultrasound - will follow
--- NOTE | 2017-09-20 14:01 | SPA.PREOP ---
- PRE-OP NOTE Dx: CKD now in need of HD Planned Procedure: Permacath Insertion Surgeon: Giovanny Ibrahim Consent: To be obtained by surgeon after risks, benefits and alternatives explained to patient. Last Vital Signs Temp Pulse Resp BP Pulse Ox 99 F 80 20 137/80 95 09/20/17 10:00 09/20/17 10:00 09/20/17 10:00 09/20/17 10:00 09/20/17 07:56 Lab Results WBC 15.6 K/mm3 (4.0-10.0) H 09/20/17 05:30 RBC 2.71 M/mm3 (4.00-5.60) L 09/20/17 05:30 Hgb 7.3 GM/dL (11.7-16.9) L 09/20/17 05:30 Hct 22.4 % (35.4-49) L 09/20/17 05:30 MCV 82.5 fl (80-96) 09/20/17 05:30 MCHC 32.8 g/dl (32.0-35.9) 09/20/17 05:30 RDW 15.5 % (11.9-15.9) 09/20/17 05:30 Plt Count 376 K/MM3 (134-434) 09/20/17 05:30 Sodium 134 mmol/L (136-145) L 09/20/17 05:30 Potassium 5.1 mmol/L (3.5-5.1) 09/20/17 05:30 Chloride 101 mmol/L (98-107) 09/20/17 05:30 Carbon Dioxide 20 mmol/L (21-32) L 09/20/17 05:30 Anion Gap 13 (8-16) 09/20/17 05:30 BUN 92 mg/dL (7-18) H 09/20/17 05:30 Creatinine 5.0 mg/dL (0.7-1.3) H 09/20/17 05:30 Random Glucose 212 mg/dL (74-106) H 09/20/17 05:30 Calcium 8.0 mg/dL (8.5-10.1) L 09/20/17 05:30 Blood Type AB POSITIVE 09/11/17 11:46 Antibody Screen Negative 09/11/17 11:46 - ASSESSMENT/PLAN Problem List - Problems (1) Acute on chronic kidney failure Assessment/Plan: 1. NPO after midnight except PO meds 2. GI/DVT PPX 3. Medical optimization / clearance Code(s): N17.9 - ACUTE KIDNEY FAILURE, UNSPECIFIED; N18.9 - CHRONIC KIDNEY DISEASE, UNSPECIFIED (2) CHF (congestive heart failure) Code(s): I50.9 - HEART FAILURE, UNSPECIFIED Visit type - Case Type Case Type: ED Admission
--- NOTE | 2017-09-20 15:07 | PROC ---
Central Line Insertion - Procedure Note TIME OUT performed prior to this procedure with verbal confirmation of correct patient identity, correct side, agreement of the procedure, correct patient position, availability of necessary equipment. The consent form is complete and accurate. Risk of possible infection and bleeding have been discussed with the patient. Safety precautions based on patient history or medication use has been addressed. Indication: Other (Fluid overloaded.) Consent on Chart: Yes Central Line: Dialysis Cath, Tri Lumen Position: Supine Area prepped with Chlorhexidine solution then draped using sterile barrier protection. Anesthesia: Lidocaine 1% Technique used: Seldinger Ultrasound Guided Assistance: Yes Site: Right Femoral Dark venous non-pulsatile flow noted from hub of needle. The catheter was introduced. Guide wire removed intact. Each port aspirated then flushed with sterile normal saline and capped. Line secured to skin with silk suture. Biopatch placed around base of line. Sterile occlusive dressing applied. No complications. Patient tolerated the procedure well.
--- NOTE | 2017-09-20 15:31 | PN ---
Progress Note (short form) - Note Progress Note: Subjective: The patient was seen and examined at the bedside, he has no complaints at this time Right groin trialysis catheter placed today, will be dialyzed tonight For permacath tomorrow Current Medications Generic Name Dose Route Start Last Admin Trade Name Dannyq PRN Reason Stop Dose Admin Acetaminophen 650 mg 09/14/17 08:50 09/19/17 02:30 Tylenol - PO 650 mg Q4H PRN Administration FEVER Amlodipine Besylate 10 mg 09/14/17 10:00 09/20/17 11:07 Norvasc - PO 10 mg DAILY ELENA Administration Aspirin 81 mg 09/14/17 10:00 09/20/17 11:08 Ecotrin - PO 81 mg DAILY ELE[facility] Administration Atorvastatin Calcium 10 mg 09/14/17 22:00 09/19/17 21:30 Lipitor - PO 10 mg HS ELENA Administration Bisacodyl 10 mg 09/20/17 10:00 Dulcolax Suppository - RC DAILY PRN CONSTIPATION Brimonidine Tartrate 1 drop 09/14/17 14:00 09/20/17 15:10 Alphagan P 0.1% - OU Not Given TID ELENA Chlorthalidone 100 mg 09/19/17 10:00 09/20/17 11:10 Hygroton - PO 100 mg DAILY ELENA Administration Clopidogrel Bisulfate 75 mg 09/14/17 10:00 09/20/17 11:12 Plavix - PO 75 mg DAILY ELENA Administration Collagenase 1 applic 09/14/17 10:00 09/19/17 10:23 Santyl - TP 1 applic DAILY E[facility] Administration Docusate Sodium 200 mg 09/14/17 10:00 09/20/17 11:07 Colace - PO 200 mg DAILY ELENA Administration Ethacrynic Acid 75 mg 09/19/17 22:00 09/20/17 11:10 Edecrin - PO 75 mg BID ELENA Administration Ferrous Sulfate 325 mg 09/15/17 08:00 09/20/17 11:08 Feosol - PO 325 mg DAILY@0800 [facility] Administration Folic Acid 1 mg 09/14/17 10:00 09/20/17 11:08 Folic Acid - PO 1 mg DAILY ELENA Administration Gabapentin 600 mg 09/14/17 14:00 09/20/17 15:10 Neurontin - PO Not Given TID ELENA Heparin Sodium (Porcine) 5,000 unit 09/14/17 14:00 09/20/17 11:11 Heparin - SQ 5,000 unit Q8H-IV ELENA Administration Hydralazine HCl 75 mg 09/14/17 14:00 09/20/17 15:10 Apresoline - PO Not Given TID ELENA Meropenem 500 mg/ Dextrose 100 mls @ 200 mls/hr 09/16/17 15:00 09/20/17 06:18 IVPB Not Given DAILY@0600 [facility] Sodium Chloride 250 mls @ 3,000 mls/hr 09/20/17 14:57 Normal Saline - IV 09/21/17 14:58 PRN PRN Hypotension during Dialysis Insulin Aspart 1 vial 09/14/17 11:00 09/20/17 11:12 Novolog Vial Sliding Scale - SQ Not Given TIDAC [facility] Protocol Insulin Detemir 95 units 09/15/17 07:00 09/20/17 06:19 Levemir Vial SQ Not Given AM [facility] Lactic Acid 1 applic 09/14/17 08:50 Lac-Hydrin 12 TP BID PRN xerosis Metoprolol Tartrate 25 mg 09/14/17 10:00 09/20/17 11:09 Lopressor - PO 25 mg BID [facility] Administration Non-Formulary Medication 1 drop 09/14/17 14:00 Brinzolamide [Azopt] OU TID [facility] Nystatin 1 applic 09/14/17 10:00 09/20/17 11:12 Nystop Powder - TP Not Given DAILY [facility] Ofloxacin 1 drop 09/14/17 14:00 09/20/17 06:19 Ocuflox 0.3% Eye Drops - OU 1 drop TID [facility] Administration Ondansetron HCl 4 mg 09/14/17 08:50 Zofran Injection IVPUSH Q8H PRN NAUSEA Oxycodone HCl 5 mg 09/18/17 20:12 09/20/17 11:08 Roxicodone - PO 5 mg Q8H PRN Administration PAIN LEVEL 6-10 Polyethylene Glycol 17 gm 09/19/17 22:00 09/20/17 11:11 Miralax (For Daily Use) - PO 17 grams BID [facility] Administration Ranitidine HCl 150 mg 09/14/17 10:00 09/20/17 11:07 Zantac - PO 150 mg DAILY ELENA Administration Objective: Vital Signs Period Temp Pulse Resp BP Sys/Kauffman Pulse Ox Last 24 Hr 99 F-99.9 F 68-80 20-20 132-159/59-80 94-95 Physical Exam: General: NAD, A&Ox3 HEENT: C-collar in place Lungs: CTA anteriorly Heart: RRR, S1S2 Abd: Soft, non-tender, non-distended. Large right abdominal discolored, slightly raised area Back: Dressing in place, c/d/i Ext: Right hand and arm edema. Patient unable to make a fist with his right hand. Tenderness on hand and distal forearm Lower ext: dressing on left foot, c/d/i CBCD WBC 15.6 K/mm3 (4.0-10.0) H 09/20/17 05:30 RBC 2.71 M/mm3 (4.00-5.60) L 09/20/17 05:30 Hgb 7.3 GM/dL (11.7-16.9) L 09/20/17 05:30 Hct 22.4 % (35.4-49) L 09/20/17 05:30 MCV 82.5 fl (80-96) 09/20/17 05:30 MCHC 32.8 g/dl (32.0-35.9) 09/20/17 05:30 RDW 15.5 % (11.9-15.9) 09/20/17 05:30 Plt Count 376 K/MM3 (134-434) 09/20/17 05:30 MPV 8.7 fl (7.5-11.1) 09/20/17 05:30 CMP Sodium 134 mmol/L (136-145) L 09/20/17 05:30 Potassium 5.1 mmol/L (3.5-5.1) 09/20/17 05:30 Chloride 101 mmol/L (98-107) 09/20/17 05:30 Carbon Dioxide 20 mmol/L (21-32) L 09/20/17 05:30 Anion Gap 13 (8-16) 09/20/17 05:30 BUN 92 mg/dL (7-18) H 09/20/17 05:30 Creatinine 5.0 mg/dL (0.7-1.3) H 09/20/17 05:30 Creat Clearance w eGFR 11.56 (>60) 09/20/17 05:30 Random Glucose 212 mg/dL (74-106) H 09/20/17 05:30 Calcium 8.0 mg/dL (8.5-10.1) L 09/20/17 05:30 Total Bilirubin 0.3 mg/dL (0.2-1.0) D 09/20/17 05:30 AST 44 U/L (15-37) H 09/20/17 05:30 ALT 31 U/L (12-78) 09/20/17 05:30 Alkaline Phosphatase 144 U/L (45-117) H 09/20/17 05:30 Total Protein 5.7 g/dl (6.4-8.2) L 09/20/17 05:30 Albumin 1.8 g/dl (3.4-5.0) L 09/20/17 05:30 Microbiology 09/16/17 11:00 Blood - Peripheral Venous Blood Culture - Preliminary NO GROWTH OBTAINED AFTER 96 HOURS, INCUBATION TO CONTINUE FOR 1 DAYS. 09/16/17 10:30 Blood - Peripheral Venous Blood Culture - Preliminary NO GROWTH OBTAINED AFTER 96 HOURS, INCUBATION TO CONTINUE FOR 1 DAYS. 09/17/17 15:00 Urine - Urine - Catheterized Urine Culture - Final NO GROWTH OBTAINED 09/13/17 10:15 Blood - Peripheral Venous Blood Culture - Final NO GROWTH AFTER 5 DAYS INCUBATION 09/13/17 09:25 Blood - Peripheral Venous Blood Culture - Final NO GROWTH AFTER 5 DAYS INCUBATION 09/12/17 09:00 Foot - Left Gram Stain - Final 09/12/17 09:00 Foot - Left Wound Culture - Final Staphylococcus Aureus 09/13/17 08:25 Urine - Urine Joshua Urine Culture - Final NO GROWTH OBTAINED 09/12/17 17:00 Urine - Urine Joshua Urine Culture - Final NO GROWTH OBTAINED Assessment: This is a 67 year old male with PMHx of HTN, DM, hyperlipidemia, obesity, sleep apnea, CKD, s/p RCA stent 05/30/10, s/p TAVR on 07/04/13, wheelchair bound, cardiac cath 06/17/13, who is s/p C2-T12 laminectomy and C7-T1 osteotomies, deformity correction and C2-T2 posterior fusion on 09/11. Plan: 1) CKD - Volume overloaded, continue chlorthalidone - Patient has allergy to lasix, minimally responsive to ethacrynic acid - For HD today - Will have permacath placed tomorrow - F/u renal ultrasound - Appreciate nephrology consult 2) Fever - Last febrile 101.2 on 09/19/17 - WBC trending down, 15.6 today - Consider story-imaging if fevers persist - Continue Meropenem per ID - Appreciate ID consult 3) S/p C2-T12 laminectomy and C7-T1 osteotomies, deformity correction and C2-T2 posterior fusion on 09/11 - C-collar in place (continue 23/24 hours a day) - Pain management - Appreciate surgery consult 4) Left big toe wound - Staph aureus from wound culture - Ammonia lactate bid - Santyl daily to left big toe - Heel pads bilaterally - Appreciate podiatry consult; low suspicion that foot ulcer is source of fever 4) CAD - Continue ASA - Continue Plavix - Appreciate cardiology consult 5) HTN - Continue Norvasc - Continue Hydralazine 6) DM - BGM ACHS - ISS ACHS - Continue Levemir 95u sq AM 7) Sleep apnea - Bipap 8) F/E/N: - Diabetic/sodium controlled diet - NPO after midnight - Monitor electrolytes 9) Prophylaxis: - Chemical DVT prophylaxis per surgery 10) Dispo: - Requires continued inpatient care CODE STATUS: FULL CODE Visit type - Emergency Visit Emergency Visit: Yes ED Registration Date: 09/11/17 Care time: The patient presented to the Emergency Department on the above date and was hospitalized for further evaluation of their emergent condition. - New Patient This patient is new to me today: No - Critical Care Critical Care patient: No
[2017-09-20] MEDS: COLLAGENASE CLOSTRIDIUM HIST. 30 GRAMS TUBE TP SCH (17:30)
--- NOTE | 2017-09-20 17:46 | PN ---
Progress Note, Physician History of Present Illness: stable son in room says less confused has remained afebrile comfortable - Current Medication List Current Medications: Active Medications Acetaminophen (Tylenol -) 650 mg PO Q4H PRN PRN Reason: FEVER Last Admin: 09/19/17 02:30 Dose: 650 mg Amlodipine Besylate (Norvasc -) 10 mg PO DAILY [facility] Last Admin: 09/20/17 11:07 Dose: 10 mg Aspirin (Ecotrin -) 81 mg PO DAILY [facility] Last Admin: 09/20/17 11:08 Dose: 81 mg Atorvastatin Calcium (Lipitor -) 10 mg PO HS [facility] Last Admin: 09/19/17 21:30 Dose: 10 mg Bisacodyl (Dulcolax Suppository -) 10 mg RC DAILY PRN PRN Reason: CONSTIPATION Brimonidine Tartrate (Alphagan P 0.1% -) 1 drop OU TID [facility] Last Admin: 09/20/17 15:10 Dose: Not Given Chlorthalidone (Hygroton -) 100 mg PO DAILY [facility] Last Admin: 09/20/17 11:10 Dose: 100 mg Clopidogrel Bisulfate (Plavix -) 75 mg PO DAILY [facility] Last Admin: 09/20/17 11:12 Dose: 75 mg Collagenase (Santyl -) 1 applic TP DAILY [facility] Last Admin: 09/20/17 17:30 Dose: 1 applic Docusate Sodium (Colace -) 200 mg PO DAILY [facility] Last Admin: 09/20/17 11:07 Dose: 200 mg Ethacrynic Acid (Edecrin -) 75 mg PO BID [facility] Last Admin: 09/20/17 11:10 Dose: 75 mg Ferrous Sulfate (Feosol -) 325 mg PO DAILY@0800 [facility] Last Admin: 09/20/17 11:08 Dose: 325 mg Folic Acid (Folic Acid -) 1 mg PO DAILY [facility] Last Admin: 09/20/17 11:08 Dose: 1 mg Gabapentin (Neurontin -) 600 mg PO TID [facility] Last Admin: 09/20/17 15:10 Dose: Not Given Heparin Sodium (Porcine) (Heparin -) 5,000 unit SQ Q8H-IV [facility] Last Admin: 09/20/17 17:31 Dose: 5,000 unit Hydralazine HCl (Apresoline -) 75 mg PO TID [facility] Last Admin: 09/20/17 15:10 Dose: Not Given Meropenem 500 mg/ Dextrose 100 mls @ 200 mls/hr IVPB DAILY@0600 [facility] Last Admin: 09/20/17 06:18 Dose: Not Given Sodium Chloride (Normal Saline -) 250 mls @ 3,000 mls/hr IV PRN PRN PRN Reason: Hypotension during Dialysis Stop: 09/21/17 14:58 Insulin Aspart (Novolog Vial Sliding Scale -) 1 vial SQ TIDAC [facility]; Protocol Last Admin: 09/20/17 16:00 Dose: 4 units Insulin Detemir (Levemir Vial) 95 units SQ AM [facility] Last Admin: 09/20/17 06:19 Dose: Not Given Lactic Acid (Lac-Hydrin 12) 1 applic TP BID PRN PRN Reason: xerosis Metoprolol Tartrate (Lopressor -) 25 mg PO BID [facility] Last Admin: 09/20/17 11:09 Dose: 25 mg Non-Formulary Medication (Brinzolamide [Azopt]) 1 drop OU TID [facility] Nystatin (Nystop Powder -) 1 applic TP DAILY [facility] Last Admin: 09/20/17 11:12 Dose: Not Given Ofloxacin (Ocuflox 0.3% Eye Drops -) 1 drop OU TID [facility] Last Admin: 09/20/17 17:30 Dose: 1 drop Ondansetron HCl (Zofran Injection) 4 mg IVPUSH Q8H PRN PRN Reason: NAUSEA Oxycodone HCl (Roxicodone -) 5 mg PO Q8H PRN PRN Reason: PAIN LEVEL 6-10 Last Admin: 09/20/17 11:08 Dose: 5 mg Polyethylene Glycol (Miralax (For Daily Use) -) 17 gm PO BID [facility] Last Admin: 09/20/17 11:11 Dose: 17 grams Ranitidine HCl (Zantac -) 150 mg PO DAILY [facility] Last Admin: 09/20/17 11:07 Dose: 150 mg - Objective Vital Signs: Vital Signs Temperature 98.9 F 09/20/17 14:00 Pulse Rate 68 09/20/17 14:00 Respiratory Rate 21 09/20/17 14:00 Blood Pressure 132/89 09/20/17 14:00 O2 Sat by Pulse Oximetry (%) 94 L 09/20/17 15:52 Constitutional: Yes: No Distress, Calm HENT: Yes: Other (on hard collar) Neck: Yes: Other Cardiovascular: Yes: Regular Rate and Rhythm Respiratory: Yes: On BiPap, Poor Air Entry (bases) Gastrointestinal: Yes: Normal Bowel Sounds, Soft Musculoskeletal: Yes: WNL Extremities: Yes: Other Wound/Incision: Yes: Clean/Dry Neurological: Yes: Alert Psychiatric: Yes: Alert Labs: CBC, BMP 09/20/17 05:30 09/20/17 05:30 Assessment/Plan 67 yo male s/p exploration of spinal fusion, C2-T2 laminectomies and C7-T1 osteotomies, deformity correction and C2-T2 posterior fusion. r/o uti numbness leukocytosis Cervical Spinal Stenosis s/p C2-T2 Laminectomies/Posterior Fusions CAD Aortic Stenosis s/p AVR HTN DM CKD DOMINIK Toe Ulcer fever plan continue foleys will watch for fever now continue bipap continue abx for now spoke jarett son--says less confused now
[2017-09-20] MEDS ORDERED: SODIUM CHLORIDE 250 ML IV PRN (19:41)
[2017-09-20] MEDS: ATORVASTATIN CA 10 MG TABLET (FP) PO SCH (22:32)
--- NOTE | 2017-09-20 23:36 | PN ---
Progress Note (short form) - Note Progress Note: FUV left big toe. Seen earlier tonight. Patient alert and oriented. Son present. wbc=15.6, +granulating wound, -cellulitis, -drainage, grade 1 ulceration Heel pads b/l. continue Santyl daily to left big toe. Ammonium lactate BID to exposed lower extremities. Will follow. Do not believe wound is what is causing wbc elevation. No visible evidence of infection. Discussed future hammertoe repair to prevent new ulceration left foot.
[2017-09-21] MEDS: HEPARIN NA (PORCINE) 5,000 UNITS/ML 1ML VIAL SQ SCH ×2 (03:35→17:03)
[2017-09-21] MEDS: BRIMONIDINE TARTRATE 0.1% OPHTHALMIC 5 ML BOTTLE OU SCH ×3 (05:36→21:18)
[2017-09-21] MEDS: OFLOXACIN 0.3% OPHTHALMIC SOLUTION 5 ML BOTTLE OU SCH ×3 (05:36→21:18)
[2017-09-21] MEDS: MEROPENEM 500 MG in DEXTROSE 5%-WATER 100 ML IVPB SCH (05:37)
[2017-09-21] MEDS: hydrALAZINE HCL 25 MG TABLET (FP) PO SCH ×3 (05:47→21:19)
[2017-09-21] MEDS: GABAPENTIN 300 MG CAPSULE (FP) PO SCH ×3 (05:48→21:16)
[2017-09-21 06:34] LABS: BASO % 0.4 % (0-2.0); EOS % 0.5 % (0-4.5); HEMATOCRIT 21.6 % (35.4-49); HEMOGLOBIN 7.2 GM/dL (11.7-16.9); LYMPH % 4.8 % (8-40); MCH 27.2 pg (25.7-33.7); MCHC 33.2 g/dl (32.0-35.9); MEAN PLT VOLUME 8.5 fl (7.5-11.1); MONO % 8.9 % (3.8-10.2); NEUT % 85.4 % (42.8-82.8); PLATELET COUNT 468 K/MM3 (134-434); RBC 2.63 M/mm3 (4.00-5.60); RDW 15.9 % (11.9-15.9); WHITE BLOOD COUNT 14.5 K/mm3 (4.0-10.0)
[2017-09-21] MEDS: INSULIN SLIDING SCALE (NOVOLOG) 1 VIAL SQ SCH ×3 (06:38→19:14)
[2017-09-21 06:56] LABS: ALBUMIN 1.7 g/dl (3.4-5.0); ANION GAP 12 (8-16); CALCIUM 8.1 mg/dL (8.5-10.1); CHLORIDE 101 mmol/L (98-107); CO2 24 mmol/L (21-32); POTASSIUM 4.9 mmol/L (3.5-5.1); SODIUM 137 mmol/L (136-145)
[2017-09-21 07:02] LABS: ALK PHOS 147 U/L (45-117); BILIRUBIN,TOTAL 0.2 mg/dL (0.2-1.0); BLOOD UREA NITROGEN 87 mg/dL (7-18); CREATININE 4.2 mg/dL (0.7-1.3); GLUCOSE,RANDOM 221 mg/dL (74-106); SGOT/AST 50 U/L (15-37); SGPT/ALT 34 U/L (12-78); TOT PROT 5.9 g/dl (6.4-8.2)
[2017-09-21 07:57] LABS: INR 1.35 (0.82-1.09); PROTHROMBIN TIME (PATIENT) 15.3 SEC (9.7-13.0)
[2017-09-21] MEDS: POLYETHYLENE GLYCOL 3350 119 GM BTL PO SCH ×2 (10:03→21:19)
[2017-09-21] MEDS: COLLAGENASE CLOSTRIDIUM HIST. 30 GRAMS TUBE TP SCH (10:04)
--- NOTE | 2017-09-21 10:08 | PN ---
Progress Note, Physician History of Present Illness: PULMONARY AWAKE ON BIPAP, DYSPNEIC FOR HD TODAY - Current Medication List Current Medications: Active Medications Acetaminophen (Tylenol -) 650 mg PO Q4H PRN PRN Reason: FEVER Last Admin: 09/19/17 02:30 Dose: 650 mg Amlodipine Besylate (Norvasc -) 10 mg PO DAILY [facility] Last Admin: 09/20/17 11:07 Dose: 10 mg Aspirin (Ecotrin -) 81 mg PO DAILY [facility] Last Admin: 09/20/17 11:08 Dose: 81 mg Atorvastatin Calcium (Lipitor -) 10 mg PO HS [facility] Last Admin: 09/20/17 22:32 Dose: 10 mg Bisacodyl (Dulcolax Suppository -) 10 mg RC DAILY PRN PRN Reason: CONSTIPATION Brimonidine Tartrate (Alphagan P 0.1% -) 1 drop OU TID [facility] Last Admin: 09/21/17 05:36 Dose: 1 drop Chlorthalidone (Hygroton -) 100 mg PO DAILY [facility] Last Admin: 09/20/17 11:10 Dose: 100 mg Clopidogrel Bisulfate (Plavix -) 75 mg PO DAILY [facility] Last Admin: 09/20/17 11:12 Dose: 75 mg Collagenase (Santyl -) 1 applic TP DAILY [facility] Last Admin: 09/20/17 17:30 Dose: 1 applic Docusate Sodium (Colace -) 200 mg PO DAILY [facility] Last Admin: 09/20/17 11:07 Dose: 200 mg Ethacrynic Acid (Edecrin -) 75 mg PO BID [facility] Last Admin: 09/20/17 22:32 Dose: 75 mg Ferrous Sulfate (Feosol -) 325 mg PO DAILY@0800 [facility] Last Admin: 09/20/17 11:08 Dose: 325 mg Folic Acid (Folic Acid -) 1 mg PO DAILY [facility] Last Admin: 09/20/17 11:08 Dose: 1 mg Gabapentin (Neurontin -) 600 mg PO TID [facility] Last Admin: 09/21/17 05:48 Dose: 600 mg Heparin Sodium (Porcine) (Heparin -) 5,000 unit SQ Q8H-IV [facility] Last Admin: 09/21/17 03:35 Dose: Not Given Hydralazine HCl (Apresoline -) 75 mg PO TID [facility] Last Admin: 09/21/17 05:47 Dose: 75 mg Meropenem 500 mg/ Dextrose 100 mls @ 200 mls/hr IVPB DAILY@0600 [facility] Last Admin: 09/21/17 05:37 Dose: 200 mls/hr Sodium Chloride (Normal Saline -) 250 mls @ 3,000 mls/hr IV PRN PRN PRN Reason: Hypotension during Dialysis Stop: 09/21/17 19:40 Insulin Aspart (Novolog Vial Sliding Scale -) 1 vial SQ TIDAC [facility]; Protocol Last Admin: 09/21/17 06:38 Dose: 4 units Insulin Detemir (Levemir Vial) 95 units SQ AM [facility] Last Admin: 09/20/17 06:19 Dose: Not Given Lactic Acid (Lac-Hydrin 12) 1 applic TP BID PRN PRN Reason: xerosis Metoprolol Tartrate (Lopressor -) 25 mg PO BID [facility] Last Admin: 09/20/17 22:33 Dose: 25 mg Non-Formulary Medication (Brinzolamide [Azopt]) 1 drop OU TID [facility] Nystatin (Nystop Powder -) 1 applic TP DAILY [facility] Last Admin: 09/20/17 11:12 Dose: Not Given Ofloxacin (Ocuflox 0.3% Eye Drops -) 1 drop OU TID [facility] Last Admin: 09/21/17 05:36 Dose: 1 drop Ondansetron HCl (Zofran Injection) 4 mg IVPUSH Q8H PRN PRN Reason: NAUSEA Oxycodone HCl (Roxicodone -) 5 mg PO Q8H PRN PRN Reason: PAIN LEVEL 6-10 Last Admin: 09/20/17 11:08 Dose: 5 mg Polyethylene Glycol (Miralax (For Daily Use) -) 17 gm PO BID [facility] Last Admin: 09/20/17 22:43 Dose: 17 grams Ranitidine HCl (Zantac -) 150 mg PO DAILY [facility] Last Admin: 09/20/17 11:07 Dose: 150 mg - Objective Vital Signs: Vital Signs Temperature 98.6 F 09/21/17 05:46 Pulse Rate 78 09/21/17 05:46 Respiratory Rate 20 09/21/17 05:46 Blood Pressure 135/57 09/21/17 05:46 O2 Sat by Pulse Oximetry (%) 95 09/21/17 09:03 Constitutional: Yes: Mild Distress, Obese Eyes: Yes: WNL HENT: Yes: WNL Neck: Yes: Other (NECK BRACE) Cardiovascular: Yes: Regular Rate and Rhythm, S1, S2 Respiratory: Yes: Diminished Gastrointestinal: Yes: Normal Bowel Sounds, Soft Extremities: Yes: WNL Edema: Yes Labs: CBC, BMP 09/21/17 06:15 09/21/17 06:15 INR, PTT INR 1.35 (0.82-1.09) H D 09/21/17 05:40 Problem List - Problems (1) Dyspnea Code(s): R06.00 - DYSPNEA, UNSPECIFIED (2) Back pain Code(s): M54.9 - DORSALGIA, UNSPECIFIED (3) CHF (congestive heart failure) Code(s): I50.9 - HEART FAILURE, UNSPECIFIED (4) Cervical myelopathy Code(s): G95.9 - DISEASE OF SPINAL CORD, UNSPECIFIED (5) HTN (hypertension) Code(s): I10 - ESSENTIAL (PRIMARY) HYPERTENSION (6) DOMINIK (obstructive sleep apnea) Code(s): G47.33 - OBSTRUCTIVE SLEEP APNEA (ADULT) (PEDIATRIC) (7) S/P TAVR (transcatheter aortic valve replacement) Code(s): Z95.2 - PRESENCE OF PROSTHETIC HEART VALVE (8) Acute on chronic kidney failure Code(s): N17.9 - ACUTE KIDNEY FAILURE, UNSPECIFIED; N18.9 - CHRONIC KIDNEY DISEASE, UNSPECIFIED (9) Diabetes Code(s): E11.9 - TYPE 2 DIABETES MELLITUS WITHOUT COMPLICATIONS Assessment/Plan ASSESSMENT AND PLAN: Cervical Spinal Stenosis s/p C2-T2 Laminectomies/Posterior Fusions Respiratory distress DYSPNEA VOLUME OVERLOAD CAD Aortic Stenosis s/p AVR HTN DM CKD DOMINIK ANEMIA Toe Ulcer - bipap -HD as per renal - diuretics as tolerated - pain control - incentive spirometry - monitor urine output, creatinine - rehab/PT - monitor lytes - DVT prophylaxis - normal transfusion threshold - abx as per id DR HIDALGO
[2017-09-21] MEDS: ETHACRYNIC ACID 25 MG TABLET PO SCH ×2 (10:28→21:19)
[2017-09-21] MEDS: INSULIN (LEVEMIR) 100 UNITS/ML UNITS SQ SCH (10:29)
[2017-09-21] MEDS: FERROUS SO4 325 MG TABLET (FP) PO SCH (10:30)
[2017-09-21] MEDS: CHLORTHALIDONE 25 MG TABLET PO SCH (10:30)
[2017-09-21] MEDS: FOLIC ACID 1 MG TABLET (FP) PO SCH (10:30)
[2017-09-21] MEDS: amLODIPine BESYLATE 10 MG TABLET (FP) PO SCH (10:30)
[2017-09-21] MEDS: DOCUSATE SODIUM 100 MG CAPSULE (FP) PO SCH (10:30)
[2017-09-21] MEDS: METOPROLOL TARTRATE 25 MG TABLET (FP) PO SCH ×2 (10:30→21:19)
[2017-09-21] MEDS: ASPIRIN COATED 81 MG TABLET.EC PO SCH (10:30)
[2017-09-21] MEDS: NYSTATIN POWDER 100,000 UNITS/GM - 15 GM TOPICAL POWDER TP SCH (10:31)
[2017-09-21] MEDS: CLOPIDOGREL BISULFATE 75 MG TABLET (FP) PO SCH (10:31)
[2017-09-21] MEDS: RANITIDINE HCL 150 MG TABLET (FP) PO SCH (10:31)
--- NOTE | 2017-09-21 15:13 | PN ---
Progress Note (short form) - Note Progress Note: Subjective: The patient was seen and examined at the bedside, he has no complaints at this time Tolerated HD well yesterday Current Medications Generic Name Dose Route Start Last Admin Trade Name Car PRN Reason Stop Dose Admin Acetaminophen 650 mg 09/14/17 08:50 09/19/17 02:30 Tylenol - PO 650 mg Q4H PRN Administration FEVER Amlodipine Besylate 10 mg 09/14/17 10:00 09/21/17 10:30 Norvasc - PO Not Given DAILY [facility] Aspirin 81 mg 09/14/17 10:00 09/21/17 10:30 Ecotrin - PO Not Given DAILY [facility] Atorvastatin Calcium 10 mg 09/14/17 22:00 09/20/17 22:32 Lipitor - PO 10 mg HS [facility] Administration Bisacodyl 10 mg 09/20/17 10:00 Dulcolax Suppository - RC DAILY PRN CONSTIPATION Brimonidine Tartrate 1 drop 09/14/17 14:00 09/21/17 05:36 Alphagan P 0.1% - OU 1 drop TID [facility] Administration Chlorthalidone 100 mg 09/19/17 10:00 09/21/17 10:30 Hygroton - PO Not Given DAILY [facility] Clopidogrel Bisulfate 75 mg 09/14/17 10:00 09/21/17 10:31 Plavix - PO Not Given DAILY [facility] Collagenase 1 applic 09/14/17 10:00 09/20/17 17:30 Santyl - TP 1 applic DAILY [facility] Administration Docusate Sodium 200 mg 09/14/17 10:00 09/21/17 10:30 Colace - PO Not Given DAILY [facility] Ethacrynic Acid 75 mg 09/19/17 22:00 09/21/17 10:28 Edecrin - PO Not Given BID [facility] Ferrous Sulfate 325 mg 09/15/17 08:00 09/21/17 10:30 Feosol - PO Not Given DAILY@0800 [facility] Folic Acid 1 mg 09/14/17 10:00 09/21/17 10:30 Folic Acid - PO Not Given DAILY [facility] Gabapentin 600 mg 09/14/17 14:00 09/21/17 05:48 Neurontin - PO 600 mg TID [facility] Administration Hydralazine HCl 75 mg 09/14/17 14:00 09/21/17 05:47 Apresoline - PO 75 mg TID [facility] Administration Meropenem 500 mg/ Dextrose 100 mls @ 200 mls/hr 09/16/17 15:00 09/21/17 05:37 IVPB 200 mls/hr DAILY@0600 [facility] Administration Sodium Chloride 250 mls @ 3,000 mls/hr 09/20/17 19:41 Normal Saline - IV 09/21/17 19:40 PRN PRN Hypotension during Dialysis Insulin Aspart 1 vial 09/14/17 11:00 09/21/17 06:38 Novolog Vial Sliding Scale - SQ 4 units TIDAC [facility] Administration Protocol Insulin Detemir 95 units 09/15/17 07:00 09/21/17 10:29 Levemir Vial SQ Not Given AM [facility] Lactic Acid 1 applic 09/14/17 08:50 Lac-Hydrin 12 TP BID PRN xerosis Metoprolol Tartrate 25 mg 09/14/17 10:00 09/21/17 10:30 Lopressor - PO Not Given BID [facility] Non-Formulary Medication 1 drop 09/14/17 14:00 Brinzolamide [Azopt] OU TID [facility] Nystatin 1 applic 09/14/17 10:00 09/21/17 10:31 Nystop Powder - TP Not Given DAILY [facility] Ofloxacin 1 drop 09/14/17 14:00 09/21/17 05:36 Ocuflox 0.3% Eye Drops - OU 1 drop TID [facility] Administration Ondansetron HCl 4 mg 09/14/17 08:50 Zofran Injection IVPUSH Q8H PRN NAUSEA Oxycodone HCl 5 mg 09/18/17 20:12 09/20/17 11:08 Roxicodone - PO 5 mg Q8H PRN Administration PAIN LEVEL 6-10 Polyethylene Glycol 17 gm 09/19/17 22:00 09/20/17 22:43 Miralax (For Daily Use) - PO 17 grams BID [facility] Administration Ranitidine HCl 150 mg 09/14/17 10:00 09/21/17 10:31 Zantac - PO Not Given DAILY [facility] Objective: Vital Signs Period Temp Pulse Resp BP Sys/Kauffman Pulse Ox Last 24 Hr 98.2 F-98.6 F 67-83 18-23 120-151/51-76 93-95 Physical Exam: General: NAD, A&Ox3 HEENT: C-collar in place Lungs: CTA anteriorly Heart: RRR, S1S2 Abd: Right groin trialysis catheter in place. Soft, non-tender, non-distended. Large right abdominal discolored, slightly raised area Back: Dressing in place, c/d/i Ext: B/l upper and lower extremity edema Lower ext: dressing on left foot, c/d/i CBCD WBC 14.5 K/mm3 (4.0-10.0) H 09/21/17 06:15 RBC 2.63 M/mm3 (4.00-5.60) L 09/21/17 06:15 Hgb 7.2 GM/dL (11.7-16.9) L 09/21/17 06:15 Hct 21.6 % (35.4-49) L 09/21/17 06:15 MCV 82.0 fl (80-96) 09/21/17 06:15 MCHC 33.2 g/dl (32.0-35.9) 09/21/17 06:15 RDW 15.9 % (11.9-15.9) 09/21/17 06:15 Plt Count 468 K/MM3 (134-434) H D 09/21/17 06:15 MPV 8.5 fl (7.5-11.1) 09/21/17 06:15 CMP Sodium 137 mmol/L (136-145) 09/21/17 06:15 Potassium 4.9 mmol/L (3.5-5.1) 09/21/17 06:15 Chloride 101 mmol/L (98-107) 09/21/17 06:15 Carbon Dioxide 24 mmol/L (21-32) 09/21/17 06:15 Anion Gap 12 (8-16) 09/21/17 06:15 BUN 87 mg/dL (7-18) H 09/21/17 06:15 Creatinine 4.2 mg/dL (0.7-1.3) H 09/21/17 06:15 Creat Clearance w eGFR 14.14 (>60) 09/21/17 06:15 Random Glucose 221 mg/dL (74-106) H 09/21/17 06:15 Calcium 8.1 mg/dL (8.5-10.1) L 09/21/17 06:15 Total Bilirubin 0.2 mg/dL (0.2-1.0) D 09/21/17 06:15 AST 50 U/L (15-37) H 09/21/17 06:15 ALT 34 U/L (12-78) 09/21/17 06:15 Alkaline Phosphatase 147 U/L (45-117) H 09/21/17 06:15 Total Protein 5.9 g/dl (6.4-8.2) L 09/21/17 06:15 Albumin 1.7 g/dl (3.4-5.0) L 09/21/17 06:15 Microbiology 09/16/17 11:00 Blood - Peripheral Venous Blood Culture - Final NO GROWTH AFTER 5 DAYS INCUBATION 09/16/17 10:30 Blood - Peripheral Venous Blood Culture - Final NO GROWTH AFTER 5 DAYS INCUBATION 09/17/17 15:00 Urine - Urine - Catheterized Urine Culture - Final NO GROWTH OBTAINED 09/13/17 10:15 Blood - Peripheral Venous Blood Culture - Final NO GROWTH AFTER 5 DAYS INCUBATION 09/13/17 09:25 Blood - Peripheral Venous Blood Culture - Final NO GROWTH AFTER 5 DAYS INCUBATION 09/12/17 09:00 Foot - Left Gram Stain - Final 09/12/17 09:00 Foot - Left Wound Culture - Final Staphylococcus Aureus 09/13/17 08:25 Urine - Urine Joshua Urine Culture - Final NO GROWTH OBTAINED 09/12/17 17:00 Urine - Urine Joshua Urine Culture - Final NO GROWTH OBTAINED Assessment: This is a 67 year old male with PMHx of HTN, DM, hyperlipidemia, obesity, sleep apnea, CKD, s/p RCA stent 05/30/10, s/p TAVR on 07/04/13, wheelchair bound, cardiac cath 06/17/13, who is s/p C2-T12 laminectomy and C7-T1 osteotomies, deformity correction and C2-T2 posterior fusion on 09/11. Plan: 1) CKD - Volume overloaded, continue chlorthalidone - Tolerated HD yesterday, for HD again today? - Renal ultrasound - Appreciate nephrology consult 2) Fever - Last febrile 101.2 on 09/19/17 - WBC trending down, 14.5 today - Consider story-imaging if fevers persist - Continue Meropenem per ID - Appreciate ID consult 3) S/p C2-T12 laminectomy and C7-T1 osteotomies, deformity correction and C2-T2 posterior fusion on 09/11 - C-collar in place (continue 23/24 hours a day) - Pain management - Appreciate surgery consult 4) Left big toe wound - Staph aureus from wound culture - Ammonia lactate bid - Santyl daily to left big toe - Heel pads bilaterally - Appreciate podiatry consult; low suspicion that foot ulcer is source of fever 4) CAD - Continue ASA - Continue Plavix - Appreciate cardiology consult 5) HTN - Continue Norvasc - Continue Hydralazine 6) DM - BGM ACHS - ISS ACHS - Continue Levemir 95u sq AM 7) Sleep apnea - Bipap 8) F/E/N: - Dysphagia chopped - Monitor electrolytes 9) Prophylaxis: - Chemical DVT prophylaxis per surgery 10) Dispo: - Requires continued inpatient care CODE STATUS: FULL CODE Visit type - Emergency Visit Emergency Visit: Yes ED Registration Date: 09/11/17 Care time: The patient presented to the Emergency Department on the above date and was hospitalized for further evaluation of their emergent condition. - New Patient This patient is new to me today: No - Critical Care Critical Care patient: No
--- NOTE | 2017-09-21 15:40 | PN ---
Progress Note (short form) - Note Progress Note: Surgery POD #10 C2-T2 decompression and fusion. Patient seen and examined at bedside Pt is feeling much better after dialysis last night (scheduled again tonight). His respiratory status has improved and He has been afebrile for > 24hours now. Right hand pain at web space of thumb and index finger continues to improve. Vital Signs Temp 98.4 F 09/21/18 14:15 Pulse 72 09/21/17 14:15 Resp 18 09/21/17 14:15 BP 141/76 09/21/17 14:15 Pulse Ox 94 L 09/21/17 12:06 Intake & Output 09/20/18 18 09/21/17 23:59 11:59 23:59 Intake Total 200 190 Output Total 900 500 Balance -700 -310 Weight 276 lb 9.6 oz Intake: IVPB 100 Oral 200 90 Output: Urine 900 500 Joshua 900 500 Other: Voiding Method Indwelling Catheter Indwelling Catheter Bowel Movement No # Bowel Movements 0 Weight Measurement Method Patient Lift Scale CBC, BMP 09/21/17 06:15 09/21/17 06:15 Urine culture- revealed no growth Blood cultures final-no growth after 5 days PE: A&Ox3,NAD unlabored resp on 6L NC Dressing over posterior neck is c/d/i with no evidence of d/c, surrounding tissue with no erythema or edema. c-collar maintained in good position. right UE diffuse edema noticeably improved and now limited to mostly hand, still very sensitive to touch at web space of thumb and index but improved. can initiate finger rom but limited 2/2 pain and edema. AAROM to near full extension. Right long finger triggering. NVIDwith +2 radial pulse. Left UE sensation to light touch intact throughout, able to flex and extend at wrist and all digits, photographic platemaker strength 3/5 Right thigh soft, supple and non-tender. Trialysis catheter site clean and dry. B/L LE compartments soft, supple and non-tender. sensation to light touch intact throughout. Patient able to dorsi/plantar flex feet and lift feet off bed. Problem List - Problems (1) Cervical myelopathy Assessment/Plan: POD #10 multilevel cervical decompression and fusion patient doing much better after Dialysis. 1) IV ABX per ID 2) Conintue DVT prophylaxis 3) Maintain c-collar and keep dressing clean and dry 4) OOB as tolerated to chair- OK to stand and transfer with assist 5) OT/PT for AROM, PROM and AAROM for UE and hand 6) Dialysis per medical team- plan for permacath daniella 7) continue to trend labs 8) Elevate right UE 9) d/c planning for rehab Evaluation and plan discussed with Dr Tinoco Code(s): G95.9 - DISEASE OF SPINAL CORD, UNSPECIFIED
--- NOTE | 2017-09-21 16:15 | PN ---
Progress Note, Physician History of Present Illness: doing much better awake alert oriented spoke wiht the son patient doing well - Current Medication List Current Medications: Active Medications Acetaminophen (Tylenol -) 650 mg PO Q4H PRN PRN Reason: FEVER Last Admin: 09/19/17 02:30 Dose: 650 mg Amlodipine Besylate (Norvasc -) 10 mg PO DAILY [facility] Last Admin: 09/21/17 10:30 Dose: Not Given Aspirin (Ecotrin -) 81 mg PO DAILY [facility] Last Admin: 09/21/17 10:30 Dose: Not Given Atorvastatin Calcium (Lipitor -) 10 mg PO HS [facility] Last Admin: 09/20/17 22:32 Dose: 10 mg Bisacodyl (Dulcolax Suppository -) 10 mg RC DAILY PRN PRN Reason: CONSTIPATION Brimonidine Tartrate (Alphagan P 0.1% -) 1 drop OU TID [facility] Last Admin: 09/21/17 05:36 Dose: 1 drop Chlorthalidone (Hygroton -) 100 mg PO DAILY [facility] Last Admin: 09/21/17 10:30 Dose: Not Given Clopidogrel Bisulfate (Plavix -) 75 mg PO DAILY [facility] Last Admin: 09/21/17 10:31 Dose: Not Given Collagenase (Santyl -) 1 applic TP DAILY [facility] Last Admin: 09/20/17 17:30 Dose: 1 applic Docusate Sodium (Colace -) 200 mg PO DAILY [facility] Last Admin: 09/21/17 10:30 Dose: Not Given Ethacrynic Acid (Edecrin -) 75 mg PO BID [facility] Last Admin: 09/21/17 10:28 Dose: Not Given Ferrous Sulfate (Feosol -) 325 mg PO DAILY@0800 [facility] Last Admin: 09/21/17 10:30 Dose: Not Given Folic Acid (Folic Acid -) 1 mg PO DAILY [facility] Last Admin: 09/21/17 10:30 Dose: Not Given Gabapentin (Neurontin -) 600 mg PO TID [facility] Last Admin: 09/21/17 05:48 Dose: 600 mg Hydralazine HCl (Apresoline -) 75 mg PO TID [facility] Last Admin: 09/21/17 05:47 Dose: 75 mg Meropenem 500 mg/ Dextrose 100 mls @ 200 mls/hr IVPB DAILY@0600 [facility] Last Admin: 09/21/17 05:37 Dose: 200 mls/hr Sodium Chloride (Normal Saline -) 250 mls @ 3,000 mls/hr IV PRN PRN PRN Reason: Hypotension during Dialysis Stop: 09/21/17 19:40 Insulin Aspart (Novolog Vial Sliding Scale -) 1 vial SQ TIDAC [facility]; Protocol Last Admin: 09/21/17 06:38 Dose: 4 units Insulin Detemir (Levemir Vial) 95 units SQ AM [facility] Last Admin: 09/21/17 10:29 Dose: Not Given Lactic Acid (Lac-Hydrin 12) 1 applic TP BID PRN PRN Reason: xerosis Metoprolol Tartrate (Lopressor -) 25 mg PO BID [facility] Last Admin: 09/21/17 10:30 Dose: Not Given Non-Formulary Medication (Brinzolamide [Azopt]) 1 drop OU TID [facility] Nystatin (Nystop Powder -) 1 applic TP DAILY [facility] Last Admin: 09/21/17 10:31 Dose: Not Given Ofloxacin (Ocuflox 0.3% Eye Drops -) 1 drop OU TID [facility] Last Admin: 09/21/17 05:36 Dose: 1 drop Ondansetron HCl (Zofran Injection) 4 mg IVPUSH Q8H PRN PRN Reason: NAUSEA Oxycodone HCl (Roxicodone -) 5 mg PO Q8H PRN PRN Reason: PAIN LEVEL 6-10 Last Admin: 09/20/17 11:08 Dose: 5 mg Polyethylene Glycol (Miralax (For Daily Use) -) 17 gm PO BID [facility] Last Admin: 09/20/17 22:43 Dose: 17 grams Ranitidine HCl (Zantac -) 150 mg PO DAILY [facility] Last Admin: 09/21/17 10:31 Dose: Not Given - Objective Vital Signs: Vital Signs Temperature 98.4 F 09/21/17 14:15 Pulse Rate 72 09/21/17 14:15 Respiratory Rate 18 09/21/17 14:15 Blood Pressure 141/76 09/21/17 14:15 O2 Sat by Pulse Oximetry (%) 94 L 09/21/17 12:06 Constitutional: Yes: No Distress, Calm Neck: Yes: Other (hard collar) Cardiovascular: Yes: Regular Rate and Rhythm Respiratory: Yes: Regular, On Nasal O2 Gastrointestinal: Yes: Normal Bowel Sounds, Soft Extremities: Yes: Other Neurological: Yes: Alert, Oriented Psychiatric: Yes: Alert, Oriented Labs: CBC, BMP 09/21/17 06:15 09/21/17 06:15 INR, PTT INR 1.35 (0.82-1.09) H D 09/21/17 05:40 Assessment/Plan 67 yo male s/p exploration of spinal fusion, C2-T2 laminectomies and C7-T1 osteotomies, deformity correction and C2-T2 posterior fusion. r/o uti numbness leukocytosis Cervical Spinal Stenosis s/p C2-T2 Laminectomies/Posterior Fusions CAD Aortic Stenosis s/p AVR HTN DM CKD DOMINIK Toe Ulcer fever plan continue foleys will watch for fever now continue bipap if patient continues to be stable will deescalate bx in a day or so
--- NOTE | 2017-09-21 17:27 | PN ---
Progress Note, Physician History of Present Illness: Pt seen and examined at bedside. He is now off of bipap. He feels that his breathing is improved. He feels his edema is improving. - Current Medication List Current Medications: Active Medications Acetaminophen (Tylenol -) 650 mg PO Q4H PRN PRN Reason: FEVER Last Admin: 09/19/17 02:30 Dose: 650 mg Amlodipine Besylate (Norvasc -) 10 mg PO DAILY [facility] Last Admin: 09/21/17 10:30 Dose: Not Given Aspirin (Ecotrin -) 81 mg PO DAILY [facility] Last Admin: 09/21/17 10:30 Dose: Not Given Atorvastatin Calcium (Lipitor -) 10 mg PO HS [facility] Last Admin: 09/20/17 22:32 Dose: 10 mg Bisacodyl (Dulcolax Suppository -) 10 mg RC DAILY PRN PRN Reason: CONSTIPATION Brimonidine Tartrate (Alphagan P 0.1% -) 1 drop OU TID [facility] Last Admin: 09/21/17 14:08 Dose: 1 drop Chlorthalidone (Hygroton -) 100 mg PO DAILY [facility] Last Admin: 09/21/17 10:30 Dose: Not Given Clopidogrel Bisulfate (Plavix -) 75 mg PO DAILY [facility] Last Admin: 09/21/17 10:31 Dose: Not Given Collagenase (Santyl -) 1 applic TP DAILY [facility] Last Admin: 09/21/17 10:04 Dose: 1 applic Docusate Sodium (Colace -) 200 mg PO DAILY [facility] Last Admin: 09/21/17 10:30 Dose: Not Given Ethacrynic Acid (Edecrin -) 75 mg PO BID [facility] Last Admin: 09/21/17 10:28 Dose: Not Given Ferrous Sulfate (Feosol -) 325 mg PO DAILY@0800 [facility] Last Admin: 09/21/17 10:30 Dose: Not Given Folic Acid (Folic Acid -) 1 mg PO DAILY [facility] Last Admin: 09/21/17 10:30 Dose: Not Given Gabapentin (Neurontin -) 600 mg PO TID [facility] Last Admin: 09/21/17 14:12 Dose: Not Given Hydralazine HCl (Apresoline -) 75 mg PO TID [facility] Last Admin: 09/21/17 14:08 Dose: 75 mg Meropenem 500 mg/ Dextrose 100 mls @ 200 mls/hr IVPB DAILY@0600 [facility] Last Admin: 09/21/17 05:37 Dose: 200 mls/hr Sodium Chloride (Normal Saline -) 250 mls @ 3,000 mls/hr IV PRN PRN PRN Reason: Hypotension during Dialysis Stop: 09/21/17 19:40 Insulin Aspart (Novolog Vial Sliding Scale -) 1 vial SQ TIDAC [facility]; Protocol Last Admin: 09/21/17 11:07 Dose: 4 units Insulin Detemir (Levemir Vial) 95 units SQ AM [facility] Last Admin: 09/21/17 10:29 Dose: Not Given Lactic Acid (Lac-Hydrin 12) 1 applic TP BID PRN PRN Reason: xerosis Metoprolol Tartrate (Lopressor -) 25 mg PO BID [facility] Last Admin: 09/21/17 10:30 Dose: Not Given Non-Formulary Medication (Brinzolamide [Azopt]) 1 drop OU TID [facility] Nystatin (Nystop Powder -) 1 applic TP DAILY [facility] Last Admin: 09/21/17 10:31 Dose: Not Given Ofloxacin (Ocuflox 0.3% Eye Drops -) 1 drop OU TID [facility] Last Admin: 09/21/17 14:09 Dose: 1 drop Ondansetron HCl (Zofran Injection) 4 mg IVPUSH Q8H PRN PRN Reason: NAUSEA Oxycodone HCl (Roxicodone -) 5 mg PO Q8H PRN PRN Reason: PAIN LEVEL 6-10 Last Admin: 09/20/17 11:08 Dose: 5 mg Polyethylene Glycol (Miralax (For Daily Use) -) 17 gm PO BID [facility] Last Admin: 09/21/17 10:03 Dose: 17 grams Ranitidine HCl (Zantac -) 150 mg PO DAILY [facility] Last Admin: 09/21/17 10:31 Dose: Not Given - Objective Vital Signs: Vital Signs Temperature 98.4 F 09/21/17 14:15 Pulse Rate 72 09/21/17 14:15 Respiratory Rate 18 09/21/17 14:15 Blood Pressure 141/76 09/21/17 14:15 O2 Sat by Pulse Oximetry (%) 93 L 09/21/17 16:24 Constitutional: Yes: Calm Eyes: Yes: Conjunctiva Clear HENT: Yes: Atraumatic Cardiovascular: Yes: S1, S2 Respiratory: Yes: On Nasal O2, Rhonchi Gastrointestinal: Yes: Soft, Abdomen, Obese Genitourinary: Yes: Joshua Present Edema: Yes Edema: LUE: 1+, RUE: 1+, LLE: 1+, RLE: 1+ Neurological: Yes: Oriented Psychiatric: Yes: Oriented Labs: CBC, BMP 09/21/17 06:15 09/21/17 06:15 INR, PTT INR 1.35 (0.82-1.09) H D 09/21/17 05:40 - ....Imaging Chest X-ray: Report Reviewed Problem List - Problems (1) Acute on chronic kidney failure Code(s): N17.9 - ACUTE KIDNEY FAILURE, UNSPECIFIED; N18.9 - CHRONIC KIDNEY DISEASE, UNSPECIFIED (2) CHF (congestive heart failure) Code(s): I50.9 - HEART FAILURE, UNSPECIFIED (3) Diabetes Code(s): E11.9 - TYPE 2 DIABETES MELLITUS WITHOUT COMPLICATIONS (4) HTN (hypertension) Code(s): I10 - ESSENTIAL (PRIMARY) HYPERTENSION Assessment/Plan Current Medications Generic Name Dose Route Start Last Admin Trade Name Freq PRN Reason Stop Dose Admin Acetaminophen 650 mg 09/14/17 08:50 09/19/17 02:30 Tylenol - PO 650 mg Q4H PRN Administration FEVER Amlodipine Besylate 10 mg 09/14/17 10:00 09/21/17 10:30 Norvasc - PO Not Given DAILY [facility] Aspirin 81 mg 09/14/17 10:00 09/21/17 10:30 Ecotrin - PO Not Given DAILY [facility] Atorvastatin Calcium 10 mg 09/14/17 22:00 09/20/17 22:32 Lipitor - PO 10 mg HS [facility] Administration Bisacodyl 10 mg 09/20/17 10:00 Dulcolax Suppository - RC DAILY PRN CONSTIPATION Brimonidine Tartrate 1 drop 09/14/17 14:00 09/21/17 14:08 Alphagan P 0.1% - OU 1 drop TID [facility] Administration Chlorthalidone 100 mg 09/19/17 10:00 09/21/17 10:30 Hygroton - PO Not Given DAILY [facility] Clopidogrel Bisulfate 75 mg 09/14/17 10:00 09/21/17 10:31 Plavix - PO Not Given DAILY [facility] Collagenase 1 applic 09/14/17 10:00 09/21/17 10:04 Santyl - TP 1 applic DAILY [facility] Administration Docusate Sodium 200 mg 09/14/17 10:00 09/21/17 10:30 Colace - PO Not Given DAILY [facility] Ethacrynic Acid 75 mg 09/19/17 22:00 09/21/17 10:28 Edecrin - PO Not Given BID [facility] Ferrous Sulfate 325 mg 09/15/17 08:00 09/21/17 10:30 Feosol - PO Not Given DAILY@0800 [facility] Folic Acid 1 mg 09/14/17 10:00 09/21/17 10:30 Folic Acid - PO Not Given DAILY [facility] Gabapentin 600 mg 09/14/17 14:00 09/21/17 14:12 Neurontin - PO Not Given TID [facility] Hydralazine HCl 75 mg 09/14/17 14:00 09/21/17 14:08 Apresoline - PO 75 mg TID [facility] Administration Meropenem 500 mg/ Dextrose 100 mls @ 200 mls/hr 09/16/17 15:00 09/21/17 05:37 IVPB 200 mls/hr DAILY@0600 [facility] Administration Sodium Chloride 250 mls @ 3,000 mls/hr 09/20/17 19:41 Normal Saline - IV 09/21/17 19:40 PRN PRN Hypotension during Dialysis Insulin Aspart 1 vial 09/14/17 11:00 09/21/17 11:07 Novolog Vial Sliding Scale - SQ 4 units TIDAC [facility] Administration Protocol Insulin Detemir 95 units 09/15/17 07:00 09/21/17 10:29 Levemir Vial SQ Not Given AM [facility] Lactic Acid 1 applic 09/14/17 08:50 Lac-Hydrin 12 TP BID PRN xerosis Metoprolol Tartrate 25 mg 09/14/17 10:00 09/21/17 10:30 Lopressor - PO Not Given BID [facility] Non-Formulary Medication 1 drop 09/14/17 14:00 Brinzolamide [Azopt] OU TID [facility] Nystatin 1 applic 09/14/17 10:00 09/21/17 10:31 Nystop Powder - TP Not Given DAILY [facility] Ofloxacin 1 drop 09/14/17 14:00 09/21/17 14:09 Ocuflox 0.3% Eye Drops - OU 1 drop TID [facility] Administration Ondansetron HCl 4 mg 09/14/17 08:50 Zofran Injection IVPUSH Q8H PRN NAUSEA Oxycodone HCl 5 mg 09/18/17 20:12 09/20/17 11:08 Roxicodone - PO 5 mg Q8H PRN Administration PAIN LEVEL 6-10 Polyethylene Glycol 17 gm 09/19/17 22:00 09/21/17 10:03 Miralax (For Daily Use) - PO 17 grams BID [facility] Administration Ranitidine HCl 150 mg 09/14/17 10:00 09/21/17 10:31 Zantac - PO Not Given DAILY [facility] Impression 1. CKD 2. DM 3. cervical spine disease 4. HTN 5. CHF 6. obesity 7. anemia 8. DOMINIK 9. HLD 10. volume overload 11. s/p c2 to t2 decompression and fusion Plan - pt tolerated HD yesterday - will arrange for HD again today - discussed plan with pt and his son - pt shows clinical improvement - reviewed cxr - cont bipap as needed - check renal ultrasound - will follow
[2017-09-21] MEDS ORDERED: SODIUM CHLORIDE 250 ML IV PRN (17:28)
[2017-09-21] MEDS: ATORVASTATIN CA 10 MG TABLET (FP) PO SCH (21:16)
[2017-09-22] MEDS: hydrALAZINE HCL 25 MG TABLET (FP) PO SCH ×3 (05:58→23:03)
[2017-09-22] MEDS: GABAPENTIN 300 MG CAPSULE (FP) PO SCH ×3 (05:58→23:04)
[2017-09-22] MEDS: MEROPENEM 500 MG in DEXTROSE 5%-WATER 100 ML IVPB SCH (05:58)
[2017-09-22] MEDS: BRIMONIDINE TARTRATE 0.1% OPHTHALMIC 5 ML BOTTLE OU SCH ×3 (06:00→23:05)
[2017-09-22 06:08] LABS: HBSAG SCREEN Negative (Negative); HEP B CORE AB, TOT Negative (Negative)
[2017-09-22] MEDS: OFLOXACIN 0.3% OPHTHALMIC SOLUTION 5 ML BOTTLE OU SCH ×3 (06:12→23:05)
[2017-09-22] MEDS: INSULIN SLIDING SCALE (NOVOLOG) 1 VIAL SQ SCH ×3 (06:52→17:53)
[2017-09-22 07:22] LABS: BASO % 0.5 % (0-2.0); EOS % 1.1 % (0-4.5); HEMATOCRIT 22.1 % (35.4-49); HEMOGLOBIN 7.3 GM/dL (11.7-16.9); LYMPH % 5.5 % (8-40); MCH 26.9 pg (25.7-33.7); MCHC 32.9 g/dl (32.0-35.9); MEAN CELL VOLUME 81.9 fl (80-96); MEAN PLT VOLUME 8.7 fl (7.5-11.1); MONO % 8.1 % (3.8-10.2); NEUT % 84.8 % (42.8-82.8); PLATELET COUNT 555 K/MM3 (134-434); RDW 15.3 % (11.9-15.9); WHITE BLOOD COUNT 14.6 K/mm3 (4.0-10.0)
[2017-09-22] MEDS: FERROUS SO4 325 MG TABLET (FP) PO SCH (08:00)
[2017-09-22 08:21] LABS: CHLORIDE 101 mmol/L (98-107); POTASSIUM 4.7 mmol/L (3.5-5.1); SODIUM 137 mmol/L (136-145)
[2017-09-22 08:39] LABS: ALBUMIN 1.9 g/dl (3.4-5.0); ALK PHOS 162 U/L (45-117); ANION GAP 10 (8-16); BILIRUBIN,TOTAL 0.3 mg/dL (0.2-1.0); BLOOD UREA NITROGEN 67 mg/dL (7-18); CALCIUM 7.7 mg/dL (8.5-10.1); CO2 26 mmol/L (21-32); CREATININE 3.3 mg/dL (0.7-1.3); GLUCOSE,RANDOM 215 mg/dL (74-106); SGOT/AST 83 U/L (15-37); SGPT/ALT 52 U/L (12-78); TOT PROT 6.1 g/dl (6.4-8.2)
--- NOTE | 2017-09-22 09:35 | PN ---
Progress Note (short form) - Note Progress Note: FUV left big toe. Patient alert and oriented. wbc=14.6, +granulating wound, -cellulitis, -drainage, grade 1 ulceration Heel pads b/l. continue Santyl daily to left big toe. Ammonium lactate BID to exposed lower extremities. Will follow. WBC improving.
--- NOTE | 2017-09-22 10:05 | PN ---
Progress Note (short form) - Note Progress Note: Subjective: The patient was seen and examined at the bedside, he has no complaints at this time Had HD again last night, tolerated it well Cr continues to improve Current Medications Generic Name Dose Route Start Last Admin Trade Name aCr PRN Reason Stop Dose Admin Acetaminophen 650 mg 09/14/17 08:50 09/19/17 02:30 Tylenol - PO 650 mg Q4H PRN Administration FEVER Amlodipine Besylate 10 mg 09/14/17 10:00 09/21/17 10:30 Norvasc - PO Not Given DAILY [facility] Aspirin 81 mg 09/14/17 10:00 09/21/17 10:30 Ecotrin - PO Not Given DAILY [facility] Atorvastatin Calcium 10 mg 09/14/17 22:00 09/21/17 21:16 Lipitor - PO 10 mg HS [facility] Administration Bisacodyl 10 mg 09/20/17 10:00 Dulcolax Suppository - RC DAILY PRN CONSTIPATION Brimonidine Tartrate 1 drop 09/14/17 14:00 09/22/17 06:00 Alphagan P 0.1% - OU 1 drop TID [facility] Administration Chlorthalidone 100 mg 09/19/17 10:00 09/21/17 10:30 Hygroton - PO Not Given DAILY [facility] Clopidogrel Bisulfate 75 mg 09/14/17 10:00 09/21/17 10:31 Plavix - PO Not Given DAILY [facility] Collagenase 1 applic 09/14/17 10:00 09/21/17 10:04 Santyl - TP 1 applic DAILY [facility] Administration Docusate Sodium 200 mg 09/14/17 10:00 09/21/17 10:30 Colace - PO Not Given DAILY [facility] Ethacrynic Acid 75 mg 09/19/17 22:00 09/21/17 21:19 Edecrin - PO Not Given BID [facility] Ferrous Sulfate 325 mg 09/15/17 08:00 09/21/17 10:30 Feosol - PO Not Given DAILY@0800 [facility] Folic Acid 1 mg 09/14/17 10:00 09/21/17 10:30 Folic Acid - PO Not Given DAILY [facility] Gabapentin 600 mg 09/14/17 14:00 09/22/17 05:58 Neurontin - PO 600 mg TID [facility] Administration Hydralazine HCl 75 mg 09/14/17 14:00 09/22/17 05:58 Apresoline - PO 75 mg TID [facility] Administration Meropenem 500 mg/ Dextrose 100 mls @ 200 mls/hr 09/16/17 15:00 09/22/17 05:58 IVPB 200 mls/hr DAILY@0600 [facility] Administration Sodium Chloride 250 mls @ 3,000 mls/hr 09/21/17 17:28 Normal Saline - IV 09/22/17 17:28 PRN PRN Hypotension during Dialysis Insulin Aspart 1 vial 09/14/17 11:00 09/22/17 06:52 Novolog Vial Sliding Scale - SQ 6 units TIDAC [facility] Administration Protocol Insulin Detemir 95 units 09/15/17 07:00 09/21/17 10:29 Levemir Vial SQ Not Given AM [facility] Lactic Acid 1 applic 09/14/17 08:50 Lac-Hydrin 12 TP BID PRN xerosis Metoprolol Tartrate 25 mg 09/14/17 10:00 09/21/17 21:19 Lopressor - PO 25 mg BID [facility] Administration Non-Formulary Medication 1 drop 09/14/17 14:00 Brinzolamide [Azopt] OU TID [facility] Nystatin 1 applic 09/14/17 10:00 09/21/17 10:31 Nystop Powder - TP Not Given DAILY [facility] Ofloxacin 1 drop 09/14/17 14:00 09/22/17 06:12 Ocuflox 0.3% Eye Drops - OU 1 drop TID [facility] Administration Ondansetron HCl 4 mg 09/14/17 08:50 Zofran Injection IVPUSH Q8H PRN NAUSEA Polyethylene Glycol 17 gm 09/19/17 22:00 09/21/17 21:19 Miralax (For Daily Use) - PO 17 grams BID [facility] Administration Ranitidine HCl 150 mg 09/14/17 10:00 09/21/17 10:31 Zantac - PO Not Given DAILY [facility] Objective: Vital Signs Period Temp Pulse Resp BP Sys/Kauffman Pulse Ox Last 24 Hr 97.8 F-99.8 F 63-89 18-21 111-158/49-78 93-96 Physical Exam: General: NAD, A&Ox3 HEENT: C-collar in place Lungs: CTA anteriorly Heart: RRR, S1S2 Back: Dressing in place, c/d/i Ext: B/l upper and lower extremity edema Lower ext: dressing on left foot, c/d/i CBCD WBC 14.6 K/mm3 (4.0-10.0) H 09/22/17 05:30 RBC 2.70 M/mm3 (4.00-5.60) L 09/22/17 05:30 Hgb 7.3 GM/dL (11.7-16.9) L 09/22/17 05:30 Hct 22.1 % (35.4-49) L 09/22/17 05:30 MCV 81.9 fl (80-96) 09/22/17 05:30 MCHC 32.9 g/dl (32.0-35.9) 09/22/17 05:30 RDW 15.3 % (11.9-15.9) 09/22/17 05:30 Plt Count 555 K/MM3 (134-434) H 09/22/17 05:30 MPV 8.7 fl (7.5-11.1) 09/22/17 05:30 CMP Sodium 137 mmol/L (136-145) 09/22/17 05:30 Potassium 4.7 mmol/L (3.5-5.1) 09/22/17 05:30 Chloride 101 mmol/L (98-107) 09/22/17 05:30 Carbon Dioxide 26 mmol/L (21-32) 09/22/17 05:30 Anion Gap 10 (8-16) 09/22/17 05:30 BUN 67 mg/dL (7-18) H D 09/22/17 05:30 Creatinine 3.3 mg/dL (0.7-1.3) H D 09/22/17 05:30 Creat Clearance w eGFR 18.68 (>60) 09/22/17 05:30 Random Glucose 215 mg/dL (74-106) H 09/22/17 05:30 Calcium 7.7 mg/dL (8.5-10.1) L 09/22/17 05:30 Total Bilirubin 0.3 mg/dL (0.2-1.0) D 09/22/17 05:30 AST 83 U/L (15-37) H D 09/22/17 05:30 ALT 52 U/L (12-78) D 09/22/17 05:30 Alkaline Phosphatase 162 U/L (45-117) H 09/22/17 05:30 Total Protein 6.1 g/dl (6.4-8.2) L 09/22/17 05:30 Albumin 1.9 g/dl (3.4-5.0) L 09/22/17 05:30 Microbiology 09/16/17 11:00 Blood - Peripheral Venous Blood Culture - Final NO GROWTH AFTER 5 DAYS INCUBATION 09/16/17 10:30 Blood - Peripheral Venous Blood Culture - Final NO GROWTH AFTER 5 DAYS INCUBATION 09/17/17 15:00 Urine - Urine - Catheterized Urine Culture - Final NO GROWTH OBTAINED 09/13/17 10:15 Blood - Peripheral Venous Blood Culture - Final NO GROWTH AFTER 5 DAYS INCUBATION 09/13/17 09:25 Blood - Peripheral Venous Blood Culture - Final NO GROWTH AFTER 5 DAYS INCUBATION 09/12/17 09:00 Foot - Left Gram Stain - Final 09/12/17 09:00 Foot - Left Wound Culture - Final Staphylococcus Aureus 09/13/17 08:25 Urine - Urine Joshua Urine Culture - Final NO GROWTH OBTAINED 09/12/17 17:00 Urine - Urine Joshua Urine Culture - Final NO GROWTH OBTAINED Assessment: This is a 67 year old male with PMHx of HTN, DM, hyperlipidemia, obesity, sleep apnea, CKD, s/p RCA stent 05/30/10, s/p TAVR on 07/04/13, wheelchair bound, cardiac cath 06/17/13, who is s/p C2-T12 laminectomy and C7-T1 osteotomies, deformity correction and C2-T2 posterior fusion on 09/11. Plan: 1) CKD - Volume overloaded, continue chlorthalidone - Tolerated HD yesterday - F/u renal ultrasound - Appreciate nephrology consult 2) Fever - Last febrile 101.2 on 09/19/17 - WBC stable 14.6 - Consider story-imaging if fevers persist - Continue Meropenem per ID - Appreciate ID consult 3) S/p C2-T12 laminectomy and C7-T1 osteotomies, deformity correction and C2-T2 posterior fusion on 09/11 - C-collar in place (continue 23/24 hours a day) - Pain management - Appreciate surgery consult 4) Left big toe wound - Staph aureus from wound culture - Ammonia lactate bid - Santyl daily to left big toe - Heel pads bilaterally - Appreciate podiatry consult; low suspicion that foot ulcer is source of fever 4) CAD - Continue ASA - Continue Plavix - Appreciate cardiology consult 5) HTN - Continue Norvasc - Continue Hydralazine 6) DM - BGM ACHS - ISS ACHS - Continue Levemir 95u sq AM 7) Sleep apnea - Bipap 8) F/E/N: - Dysphagia chopped - Monitor electrolytes 9) Prophylaxis: - Chemical DVT prophylaxis per surgery 10) Dispo: - Requires continued inpatient care CODE STATUS: FULL CODE Visit type - Emergency Visit Emergency Visit: Yes ED Registration Date: 09/11/17 Care time: The patient presented to the Emergency Department on the above date and was hospitalized for further evaluation of their emergent condition. - New Patient This patient is new to me today: No - Critical Care Critical Care patient: No
[2017-09-22] MEDS: ETHACRYNIC ACID 25 MG TABLET PO SCH ×2 (11:45→23:05)
[2017-09-22] MEDS: FOLIC ACID 1 MG TABLET (FP) PO SCH (12:51)
[2017-09-22] MEDS: CHLORTHALIDONE 25 MG TABLET PO SCH (12:51)
[2017-09-22] MEDS: CLOPIDOGREL BISULFATE 75 MG TABLET (FP) PO SCH (12:52)
[2017-09-22] MEDS: amLODIPine BESYLATE 10 MG TABLET (FP) PO SCH (12:52)
[2017-09-22] MEDS: DOCUSATE SODIUM 100 MG CAPSULE (FP) PO SCH (12:52)
[2017-09-22] MEDS: ASPIRIN COATED 81 MG TABLET.EC PO SCH (12:53)
[2017-09-22] MEDS: METOPROLOL TARTRATE 25 MG TABLET (FP) PO SCH ×2 (12:53→23:03)
[2017-09-22] MEDS: POLYETHYLENE GLYCOL 3350 119 GM BTL PO SCH ×2 (13:01→23:04)
[2017-09-22] MEDS: COLLAGENASE CLOSTRIDIUM HIST. 30 GRAMS TUBE TP SCH (13:02)
[2017-09-22] MEDS: RANITIDINE HCL 150 MG TABLET (FP) PO SCH (13:02)
[2017-09-22] MEDS: NYSTATIN POWDER 100,000 UNITS/GM - 15 GM TOPICAL POWDER TP SCH (13:02)
--- NOTE | 2017-09-22 13:21 | PN ---
Progress Note (short form) - Note Progress Note: NAD on 5 L NC O2. NIPPV support overnight. No CP. Breathing improving. Intake & Output 09/19/17 09/20/17 09/21/17 09/22/17 23:59 23:59 23:59 23:59 Intake Total 570 300 190 340 Output Total 2500 1400 1300 150 Balance -1930 -1100 -1110 190 Weight 276 lb 9.6 oz 279 lb 9.6 oz Last Vital Signs Temp Pulse Resp BP Pulse Ox 98.9 F 68 21 148/71 94 L 09/22/17 08:00 09/22/17 08:00 09/22/17 08:00 09/22/17 08:00 09/22/17 08:00 Active Medications Acetaminophen (Tylenol -) 650 mg PO Q4H PRN PRN Reason: FEVER Last Admin: 09/19/17 02:30 Dose: 650 mg Amlodipine Besylate (Norvasc -) 10 mg PO DAILY [facility] Last Admin: 09/22/17 12:52 Dose: 10 mg Aspirin (Ecotrin -) 81 mg PO DAILY [facility] Last Admin: 09/22/17 12:53 Dose: 81 mg Atorvastatin Calcium (Lipitor -) 10 mg PO HS [facility] Last Admin: 09/21/17 21:16 Dose: 10 mg Bisacodyl (Dulcolax Suppository -) 10 mg RC DAILY PRN PRN Reason: CONSTIPATION Brimonidine Tartrate (Alphagan P 0.1% -) 1 drop OU TID [facility] Last Admin: 09/22/17 06:00 Dose: 1 drop Chlorthalidone (Hygroton -) 100 mg PO DAILY [facility] Last Admin: 09/22/17 12:51 Dose: 100 mg Clopidogrel Bisulfate (Plavix -) 75 mg PO DAILY [facility] Last Admin: 09/22/17 12:52 Dose: 75 mg Collagenase (Santyl -) 1 applic TP DAILY [facility] Last Admin: 09/22/17 13:02 Dose: 1 applic Docusate Sodium (Colace -) 200 mg PO DAILY [facility] Last Admin: 09/22/17 12:52 Dose: 200 mg Ethacrynic Acid (Edecrin -) 75 mg PO BID [facility] Last Admin: 09/21/17 21:19 Dose: Not Given Ferrous Sulfate (Feosol -) 325 mg PO DAILY@0800 [facility] Last Admin: 09/21/17 10:30 Dose: Not Given Folic Acid (Folic Acid -) 1 mg PO DAILY [facility] Last Admin: 09/22/17 12:51 Dose: 1 mg Gabapentin (Neurontin -) 600 mg PO TID [facility] Last Admin: 09/22/17 05:58 Dose: 600 mg Hydralazine HCl (Apresoline -) 75 mg PO TID [facility] Last Admin: 09/22/17 05:58 Dose: 75 mg Meropenem 500 mg/ Dextrose 100 mls @ 200 mls/hr IVPB DAILY@0600 [facility] Last Admin: 09/22/17 05:58 Dose: 200 mls/hr Sodium Chloride (Normal Saline -) 250 mls @ 3,000 mls/hr IV PRN PRN PRN Reason: Hypotension during Dialysis Stop: 09/22/17 17:28 Insulin Aspart (Novolog Vial Sliding Scale -) 1 vial SQ TIDAC [facility]; Protocol Last Admin: 09/22/17 06:52 Dose: 6 units Insulin Detemir (Levemir Vial) 95 units SQ AM [facility] Last Admin: 09/21/17 10:29 Dose: Not Given Lactic Acid (Lac-Hydrin 12) 1 applic TP BID PRN PRN Reason: xerosis Metoprolol Tartrate (Lopressor -) 25 mg PO BID [facility] Last Admin: 09/22/17 12:53 Dose: 25 mg Non-Formulary Medication (Brinzolamide [Azopt]) 1 drop OU TID [facility] Nystatin (Nystop Powder -) 1 applic TP DAILY [facility] Last Admin: 09/22/17 13:02 Dose: Not Given Ofloxacin (Ocuflox 0.3% Eye Drops -) 1 drop OU TID [facility] Last Admin: 09/22/17 06:12 Dose: 1 drop Ondansetron HCl (Zofran Injection) 4 mg IVPUSH Q8H PRN PRN Reason: NAUSEA Polyethylene Glycol (Miralax (For Daily Use) -) 17 gm PO BID [facility] Last Admin: 09/22/17 13:01 Dose: 17 grams Ranitidine HCl (Zantac -) 150 mg PO DAILY [facility] Last Admin: 09/22/17 13:02 Dose: 150 mg Constitutional: Yes: Mildly tachypneic at rest, Obese Eyes: Yes: WNL HENT: Yes: WNL Neck: Yes: brace Cardiovascular: Yes: Regular Rate and Rhythm, S1, S2 Respiratory: Yes: Diminished Gastrointestinal: Yes: Normal Bowel Sounds, Soft Extremities: Yes: WNL Edema: Yes Labs: Laboratory Results - last 24 hr 09/20/17 09/20/17 09/21/17 18:55 18:55 18:51 WBC RBC Hgb Hct MCV MCH MCHC RDW Plt Count MPV Absolute Neuts (auto) Total Counted Neutrophils % Neutrophils % (Manual) Band Neutrophils % Lymphocytes % Lymphocytes % (Manual) Monocytes % Monocytes % (Manual) Eosinophils % Eosinophils % (Manual) Basophils % Basophils % (Manual) Myelocytes % (Man) Promyelocytes % (Man) Blast Cells % (Manual) Nucleated RBC % Metamyelocytes Sodium Potassium Chloride Carbon Dioxide Anion Gap BUN Creatinine Creat Clearance w eGFR POC Glucometer 291 Random Glucose Calcium Total Bilirubin AST ALT Alkaline Phosphatase Total Protein Albumin Hepatitis A Ab Total Negative Hep Bs Antigen Negative Hep Bs Antibody Non reactive Hep B Core Total Ab Negative Hep C Ab Diagnostic <0.1 Liver Fibrosis Interp 09/22/17 09/22/17 09/22/17 05:30 05:30 06:40 WBC 14.6 H RBC 2.70 L Hgb 7.3 L Hct 22.1 L MCV 81.9 MCH 26.9 MCHC 32.9 RDW 15.3 Plt Count 555 H MPV 8.7 Absolute Neuts (auto) 12.3 Total Counted 98 Neutrophils % 84.8 H Neutrophils % (Manual) 88.8 H Band Neutrophils % 0.0 Lymphocytes % 5.5 L Lymphocytes % (Manual) 5.1 L Monocytes % 8.1 Monocytes % (Manual) 3 L Eosinophils % 1.1 D Eosinophils % (Manual) 1.0 Basophils % 0.5 Basophils % (Manual) 0.0 Myelocytes % (Man) 0 Promyelocytes % (Man) 1 Blast Cells % (Manual) 0 Nucleated RBC % 0 Metamyelocytes 1 Sodium 137 Potassium 4.7 Chloride 101 Carbon Dioxide 26 Anion Gap 10 BUN 67 H D Creatinine 3.3 H D Creat Clearance w eGFR 18.68 POC Glucometer 255 Random Glucose 215 H Calcium 7.7 L Total Bilirubin 0.3 D AST 83 H D ALT 52 D Alkaline Phosphatase 162 H Total Protein 6.1 L Albumin 1.9 L Hepatitis A Ab Total Hep Bs Antigen Hep Bs Antibody Hep B Core Total Ab Hep C Ab Diagnostic Liver Fibrosis Interp Problem List - Problems (1) Dyspnea Code(s): R06.00 - DYSPNEA, UNSPECIFIED (2) Back pain Code(s): M54.9 - DORSALGIA, UNSPECIFIED (3) CHF (congestive heart failure) Code(s): I50.9 - HEART FAILURE, UNSPECIFIED (4) Cervical myelopathy Code(s): G95.9 - DISEASE OF SPINAL CORD, UNSPECIFIED (5) HTN (hypertension) Code(s): I10 - ESSENTIAL (PRIMARY) HYPERTENSION (6) DOMINIK (obstructive sleep apnea) Code(s): G47.33 - OBSTRUCTIVE SLEEP APNEA (ADULT) (PEDIATRIC) (7) S/P TAVR (transcatheter aortic valve replacement) Code(s): Z95.2 - PRESENCE OF PROSTHETIC HEART VALVE (8) Acute on chronic kidney failure Code(s): N17.9 - ACUTE KIDNEY FAILURE, UNSPECIFIED; N18.9 - CHRONIC KIDNEY DISEASE, UNSPECIFIED (9) Diabetes Code(s): E11.9 - TYPE 2 DIABETES MELLITUS WITHOUT COMPLICATIONS Assessment/Plan Cervical Spinal Stenosis s/p C2-T2 Laminectomies/Posterior Fusions Respiratory distress DYSPNEA VOLUME OVERLOAD CAD Aortic Stenosis s/p AVR HTN DM CKD DOMINIK ANEMIA Toe Ulcer - NIPPV QHS and PRN - HD as per renal - diuretics as tolerated - pain control - incentive spirometry - monitor urine output, creatinine - rehab/PT - monitor lytes - DVT prophylaxis - ABX per BEVERLY Ortez
[2017-09-22] MEDS ORDERED: SODIUM CHLORIDE 250 ML IV PRN (14:09)
--- NOTE | 2017-09-22 14:09 | PN ---
Progress Note, Physician History of Present Illness: Pt seen and examined at bedside. He is awake and alert. He feels that his breathing is markedly improved. - Current Medication List Current Medications: Active Medications Acetaminophen (Tylenol -) 650 mg PO Q4H PRN PRN Reason: FEVER Last Admin: 09/19/17 02:30 Dose: 650 mg Amlodipine Besylate (Norvasc -) 10 mg PO DAILY [facility] Last Admin: 09/22/17 12:52 Dose: 10 mg Aspirin (Ecotrin -) 81 mg PO DAILY [facility] Last Admin: 09/22/17 12:53 Dose: 81 mg Atorvastatin Calcium (Lipitor -) 10 mg PO HS [facility] Last Admin: 09/21/17 21:16 Dose: 10 mg Bisacodyl (Dulcolax Suppository -) 10 mg RC DAILY PRN PRN Reason: CONSTIPATION Brimonidine Tartrate (Alphagan P 0.1% -) 1 drop OU TID [facility] Last Admin: 09/22/17 06:00 Dose: 1 drop Chlorthalidone (Hygroton -) 100 mg PO DAILY [facility] Last Admin: 09/22/17 12:51 Dose: 100 mg Clopidogrel Bisulfate (Plavix -) 75 mg PO DAILY [facility] Last Admin: 09/22/17 12:52 Dose: 75 mg Collagenase (Santyl -) 1 applic TP DAILY [facility] Last Admin: 09/22/17 13:02 Dose: 1 applic Docusate Sodium (Colace -) 200 mg PO DAILY [facility] Last Admin: 09/22/17 12:52 Dose: 200 mg Ethacrynic Acid (Edecrin -) 75 mg PO BID [facility] Last Admin: 09/21/17 21:19 Dose: Not Given Ferrous Sulfate (Feosol -) 325 mg PO DAILY@0800 [facility] Last Admin: 09/21/17 10:30 Dose: Not Given Folic Acid (Folic Acid -) 1 mg PO DAILY [facility] Last Admin: 09/22/17 12:51 Dose: 1 mg Gabapentin (Neurontin -) 600 mg PO TID [facility] Last Admin: 09/22/17 05:58 Dose: 600 mg Hydralazine HCl (Apresoline -) 75 mg PO TID [facility] Last Admin: 09/22/17 05:58 Dose: 75 mg Meropenem 500 mg/ Dextrose 100 mls @ 200 mls/hr IVPB DAILY@0600 [facility] Last Admin: 09/22/17 05:58 Dose: 200 mls/hr Sodium Chloride (Normal Saline -) 250 mls @ 3,000 mls/hr IV PRN PRN PRN Reason: Hypotension during Dialysis Stop: 09/22/17 17:28 Insulin Aspart (Novolog Vial Sliding Scale -) 1 vial SQ TIDAC [facility]; Protocol Last Admin: 09/22/17 06:52 Dose: 6 units Insulin Detemir (Levemir Vial) 95 units SQ AM [facility] Last Admin: 09/21/17 10:29 Dose: Not Given Lactic Acid (Lac-Hydrin 12) 1 applic TP BID PRN PRN Reason: xerosis Metoprolol Tartrate (Lopressor -) 25 mg PO BID [facility] Last Admin: 09/22/17 12:53 Dose: 25 mg Non-Formulary Medication (Brinzolamide [Azopt]) 1 drop OU TID [facility] Nystatin (Nystop Powder -) 1 applic TP DAILY [facility] Last Admin: 09/22/17 13:02 Dose: Not Given Ofloxacin (Ocuflox 0.3% Eye Drops -) 1 drop OU TID [facility] Last Admin: 09/22/17 06:12 Dose: 1 drop Ondansetron HCl (Zofran Injection) 4 mg IVPUSH Q8H PRN PRN Reason: NAUSEA Polyethylene Glycol (Miralax (For Daily Use) -) 17 gm PO BID [facility] Last Admin: 09/22/17 13:01 Dose: 17 grams Ranitidine HCl (Zantac -) 150 mg PO DAILY [facility] Last Admin: 09/22/17 13:02 Dose: 150 mg - Objective Vital Signs: Vital Signs Temperature 98.9 F 09/22/17 08:00 Pulse Rate 68 09/22/17 08:00 Respiratory Rate 21 09/22/17 08:00 Blood Pressure 148/71 09/22/17 08:00 O2 Sat by Pulse Oximetry (%) 94 L 09/22/17 08:00 Constitutional: Yes: Calm Eyes: Yes: Conjunctiva Clear Neck: Yes: Other (s/p fusion) Cardiovascular: Yes: S1, S2 Respiratory: Yes: On Nasal O2 Gastrointestinal: Yes: Soft, Abdomen, Obese Musculoskeletal: Yes: Muscle Weakness Extremities: Yes: Other (ulcers on both of his feet) Edema: Yes Edema: LLE: Trace, RLE: Trace Integumentary: Yes: Erythema Neurological: Yes: Oriented Psychiatric: Yes: Oriented Labs: CBC, BMP 09/22/17 05:30 09/22/17 05:30 INR, PTT INR 1.35 (0.82-1.09) H D 09/21/17 05:40 Problem List - Problems (1) Acute on chronic kidney failure Code(s): N17.9 - ACUTE KIDNEY FAILURE, UNSPECIFIED; N18.9 - CHRONIC KIDNEY DISEASE, UNSPECIFIED (2) CHF (congestive heart failure) Code(s): I50.9 - HEART FAILURE, UNSPECIFIED (3) Diabetes Code(s): E11.9 - TYPE 2 DIABETES MELLITUS WITHOUT COMPLICATIONS (4) HTN (hypertension) Code(s): I10 - ESSENTIAL (PRIMARY) HYPERTENSION Assessment/Plan Current Medications Generic Name Dose Route Start Last Admin Trade Name Freq PRN Reason Stop Dose Admin Acetaminophen 650 mg 09/14/17 08:50 09/19/17 02:30 Tylenol - PO 650 mg Q4H PRN Administration FEVER Amlodipine Besylate 10 mg 09/14/17 10:00 09/22/17 12:52 Norvasc - PO 10 mg DAILY [facility] Administration Aspirin 81 mg 09/14/17 10:00 09/22/17 12:53 Ecotrin - PO 81 mg DAILY [facility] Administration Atorvastatin Calcium 10 mg 09/14/17 22:00 09/21/17 21:16 Lipitor - PO 10 mg HS [facility] Administration Bisacodyl 10 mg 09/20/17 10:00 Dulcolax Suppository - RC DAILY PRN CONSTIPATION Brimonidine Tartrate 1 drop 09/14/17 14:00 09/22/17 06:00 Alphagan P 0.1% - OU 1 drop TID [facility] Administration Chlorthalidone 100 mg 09/19/17 10:00 09/22/17 12:51 Hygroton - PO 100 mg DAILY [facility] Administration Clopidogrel Bisulfate 75 mg 09/14/17 10:00 09/22/17 12:52 Plavix - PO 75 mg DAILY [facility] Administration Collagenase 1 applic 09/14/17 10:00 09/22/17 13:02 Santyl - TP 1 applic DAILY [facility] Administration Docusate Sodium 200 mg 09/14/17 10:00 09/22/17 12:52 Colace - PO 200 mg DAILY [facility] Administration Ethacrynic Acid 75 mg 09/19/17 22:00 09/21/17 21:19 Edecrin - PO Not Given BID [facility] Ferrous Sulfate 325 mg 09/15/17 08:00 09/21/17 10:30 Feosol - PO Not Given DAILY@0800 [facility] Folic Acid 1 mg 09/14/17 10:00 09/22/17 12:51 Folic Acid - PO 1 mg DAILY [facility] Administration Gabapentin 600 mg 09/14/17 14:00 09/22/17 05:58 Neurontin - PO 600 mg TID [facility] Administration Hydralazine HCl 75 mg 09/14/17 14:00 09/22/17 05:58 Apresoline - PO 75 mg TID [facility] Administration Meropenem 500 mg/ Dextrose 100 mls @ 200 mls/hr 09/16/17 15:00 09/22/17 05:58 IVPB 200 mls/hr DAILY@0600 [facility] Administration Sodium Chloride 250 mls @ 3,000 mls/hr 09/21/17 17:28 Normal Saline - IV 09/22/17 17:28 PRN PRN Hypotension during Dialysis Insulin Aspart 1 vial 09/14/17 11:00 09/22/17 06:52 Novolog Vial Sliding Scale - SQ 6 units TIDAC [facility] Administration Protocol Insulin Detemir 95 units 09/15/17 07:00 09/21/17 10:29 Levemir Vial SQ Not Given AM [facility] Lactic Acid 1 applic 09/14/17 08:50 Lac-Hydrin 12 TP BID PRN xerosis Metoprolol Tartrate 25 mg 09/14/17 10:00 09/22/17 12:53 Lopressor - PO 25 mg BID [facility] Administration Non-Formulary Medication 1 drop 09/14/17 14:00 Brinzolamide [Azopt] OU TID [facility] Nystatin 1 applic 09/14/17 10:00 09/22/17 13:02 Nystop Powder - TP Not Given DAILY [facility] Ofloxacin 1 drop 09/14/17 14:00 09/22/17 06:12 Ocuflox 0.3% Eye Drops - OU 1 drop TID [facility] Administration Ondansetron HCl 4 mg 09/14/17 08:50 Zofran Injection IVPUSH Q8H PRN NAUSEA Polyethylene Glycol 17 gm 09/19/17 22:00 09/22/17 13:01 Miralax (For Daily Use) - PO 17 grams BID [facility] Administration Ranitidine HCl 150 mg 09/14/17 10:00 09/22/17 13:02 Zantac - PO 150 mg DAILY [facility] Administration Impression 1. CKD 2. DM 3. cervical spine disease 4. HTN 5. CHF 6. obesity 7. anemia 8. DOMINIK 9. HLD 10. volume overload 11. s/p c2 to t2 decompression and fusion Plan - will arrange for HD in am - volume status is improving - please check renal ultrasound - discussed plan with pt - pt shows clinical improvement - cont bipap as needed, pt has been on nasal canula - will follow
--- NOTE | 2017-09-22 14:47 | PN ---
Progress Note, Physician History of Present Illness: Pt seen and examined. Events noted. Currently afebrile. Has some less SOB. For HD tomorrow. - Current Medication List Current Medications: Active Medications Acetaminophen (Tylenol -) 650 mg PO Q4H PRN PRN Reason: FEVER Last Admin: 09/19/17 02:30 Dose: 650 mg Amlodipine Besylate (Norvasc -) 10 mg PO DAILY [facility] Last Admin: 09/22/17 12:52 Dose: 10 mg Aspirin (Ecotrin -) 81 mg PO DAILY [facility] Last Admin: 09/22/17 12:53 Dose: 81 mg Atorvastatin Calcium (Lipitor -) 10 mg PO HS [facility] Last Admin: 09/21/17 21:16 Dose: 10 mg Bisacodyl (Dulcolax Suppository -) 10 mg RC DAILY PRN PRN Reason: CONSTIPATION Brimonidine Tartrate (Alphagan P 0.1% -) 1 drop OU TID [facility] Last Admin: 09/22/17 14:31 Dose: 1 drop Chlorthalidone (Hygroton -) 100 mg PO DAILY [facility] Last Admin: 09/22/17 12:51 Dose: 100 mg Clopidogrel Bisulfate (Plavix -) 75 mg PO DAILY [facility] Last Admin: 09/22/17 12:52 Dose: 75 mg Collagenase (Santyl -) 1 applic TP DAILY [facility] Last Admin: 09/22/17 13:02 Dose: 1 applic Docusate Sodium (Colace -) 200 mg PO DAILY [facility] Last Admin: 09/22/17 12:52 Dose: 200 mg Epoetin Michael (Epogen -) 4,000 unit IVPUSH ONCE ONE Stop: 09/23/17 14:10 Ethacrynic Acid (Edecrin -) 75 mg PO BID [facility] Last Admin: 09/22/17 11:45 Dose: 75 mg Ferrous Sulfate (Feosol -) 325 mg PO DAILY@0800 [facility] Last Admin: 09/22/17 08:00 Dose: Not Given Folic Acid (Folic Acid -) 1 mg PO DAILY [facility] Last Admin: 09/22/17 12:51 Dose: 1 mg Gabapentin (Neurontin -) 600 mg PO TID [facility] Last Admin: 09/22/17 14:30 Dose: 600 mg Hydralazine HCl (Apresoline -) 75 mg PO TID [facility] Last Admin: 09/22/17 14:30 Dose: Not Given Meropenem 500 mg/ Dextrose 100 mls @ 200 mls/hr IVPB DAILY@0600 [facility] Last Admin: 09/22/17 05:58 Dose: 200 mls/hr Sodium Chloride (Normal Saline -) 250 mls @ 3,000 mls/hr IV PRN PRN PRN Reason: Hypotension during Dialysis Stop: 09/22/17 17:28 Sodium Chloride (Normal Saline -) 250 mls @ 3,000 mls/hr IV PRN PRN PRN Reason: Hypotension during Dialysis Stop: 09/23/17 14:09 Insulin Aspart (Novolog Vial Sliding Scale -) 1 vial SQ TIDAC [facility]; Protocol Last Admin: 09/22/17 11:29 Dose: Not Given Insulin Detemir (Levemir Vial) 95 units SQ AM [facility] Last Admin: 09/21/17 10:29 Dose: Not Given Lactic Acid (Lac-Hydrin 12) 1 applic TP BID PRN PRN Reason: xerosis Metoprolol Tartrate (Lopressor -) 25 mg PO BID [facility] Last Admin: 09/22/17 12:53 Dose: 25 mg Non-Formulary Medication (Brinzolamide [Azopt]) 1 drop OU TID [facility] Nystatin (Nystop Powder -) 1 applic TP DAILY [facility] Last Admin: 09/22/17 13:02 Dose: Not Given Ofloxacin (Ocuflox 0.3% Eye Drops -) 1 drop OU TID [facility] Last Admin: 09/22/17 14:30 Dose: 1 drop Ondansetron HCl (Zofran Injection) 4 mg IVPUSH Q8H PRN PRN Reason: NAUSEA Polyethylene Glycol (Miralax (For Daily Use) -) 17 gm PO BID [facility] Last Admin: 09/22/17 13:01 Dose: 17 grams Ranitidine HCl (Zantac -) 150 mg PO DAILY [facility] Last Admin: 09/22/17 13:02 Dose: 150 mg - Objective Vital Signs: Vital Signs Temperature 99.2 F 09/22/17 14:20 Pulse Rate 63 09/22/17 14:20 Respiratory Rate 20 09/22/17 14:20 Blood Pressure 138/66 09/22/17 14:20 O2 Sat by Pulse Oximetry (%) 94 L 09/22/17 08:00 Constitutional: Yes: No Distress HENT: Yes: Other (wearing cervical collar) Cardiovascular: Yes: Regular Rate and Rhythm Respiratory: Yes: Diminished Gastrointestinal: Yes: Normal Bowel Sounds, Soft, Abdomen, Obese Genitourinary: Yes: Joshua Present Edema: LLE: Trace, RLE: Trace Neurological: Yes: Alert Labs: CBC, BMP 09/22/17 05:30 09/22/17 05:30 INR, PTT INR 1.35 (0.82-1.09) H D 09/21/17 05:40 Problem List - Problems (1) CHF (congestive heart failure) Code(s): I50.9 - HEART FAILURE, UNSPECIFIED (2) DOMINIK (obstructive sleep apnea) Code(s): G47.33 - OBSTRUCTIVE SLEEP APNEA (ADULT) (PEDIATRIC) (3) Diabetes Code(s): E11.9 - TYPE 2 DIABETES MELLITUS WITHOUT COMPLICATIONS (4) Back pain Code(s): M54.9 - DORSALGIA, UNSPECIFIED (5) HTN (hypertension) Code(s): I10 - ESSENTIAL (PRIMARY) HYPERTENSION (6) S/P TAVR (transcatheter aortic valve replacement) Code(s): Z95.2 - PRESENCE OF PROSTHETIC HEART VALVE (7) Cervical myelopathy Code(s): G95.9 - DISEASE OF SPINAL CORD, UNSPECIFIED (8) Lumbosacral spondylosis Code(s): M47.817 - SPONDYLS W/O MYELOPATHY OR RADICULOPATHY, LUMBOSACR REGION Assessment/Plan Fever Leukocytosis Cervical Spinal Stenosis s/p C2-T2 Laminectomies/Posterior Fusions Aortic Stenosis s/p AVR CAD HTN DM CKD DOMINIK Toe Ulcer - pt currently afebrile, continue monitor trend - wound continue antibiotics for now - for HD tomorrow - SOB improving
[2017-09-22] MEDS ORDERED: PT OWN MED DRAWER 7, Y5N ONE (22:51)
[2017-09-22] MEDS: ATORVASTATIN CA 10 MG TABLET (FP) PO SCH (23:04)
[2017-09-23] MEDS ORDERED: PT OWN MED DRAWER 7, Y5N ONE ×2 (07:17→10:00)
[2017-09-23] MEDS: GABAPENTIN 300 MG CAPSULE (FP) PO SCH ×3 (07:23→21:45)
[2017-09-23] MEDS: hydrALAZINE HCL 25 MG TABLET (FP) PO SCH ×3 (07:23→21:45)
[2017-09-23] MEDS: OFLOXACIN 0.3% OPHTHALMIC SOLUTION 5 ML BOTTLE OU SCH ×3 (07:24→21:46)
[2017-09-23] MEDS: BRIMONIDINE TARTRATE 0.1% OPHTHALMIC 5 ML BOTTLE OU SCH ×3 (07:24→21:44)
[2017-09-23] MEDS: INSULIN SLIDING SCALE (NOVOLOG) 1 VIAL SQ SCH ×3 (07:24→16:29)
[2017-09-23] MEDS: MEROPENEM 500 MG in DEXTROSE 5%-WATER 100 ML IVPB SCH (07:24)
[2017-09-23] MEDS: INSULIN (LEVEMIR) 100 UNITS/ML UNITS SQ SCH (07:47)
[2017-09-23] MEDS: FERROUS SO4 325 MG TABLET (FP) PO SCH (07:58)
[2017-09-23 08:12] LABS: HEMATOCRIT 23.4 % (35.4-49); HEMOGLOBIN 7.6 GM/dL (11.7-16.9); MCHC 32.5 g/dl (32.0-35.9); MEAN PLT VOLUME 8.3 fl (7.5-11.1); PLATELET COUNT 588 K/MM3 (134-434); RBC 2.81 M/mm3 (4.00-5.60); RDW 15.1 % (11.9-15.9)
[2017-09-23 08:14] LABS: WHITE BLOOD COUNT 13.3 K/mm3 (4.0-10.0)
[2017-09-23 08:54] LABS: BASO % 0.8 % (0-2.0); EOS % 2.2 % (0-4.5); MONO % 8.8 % (3.8-10.2); NEUT % 78.2 % (42.8-82.8)
[2017-09-23] MEDS: DOCUSATE SODIUM 100 MG CAPSULE (FP) PO SCH (09:57)
[2017-09-23] MEDS: RANITIDINE HCL 150 MG TABLET (FP) PO SCH (09:58)
[2017-09-23] MEDS: METOPROLOL TARTRATE 25 MG TABLET (FP) PO SCH ×2 (09:58→21:45)
[2017-09-23] MEDS: amLODIPine BESYLATE 10 MG TABLET (FP) PO SCH (09:58)
[2017-09-23] MEDS: ASPIRIN COATED 81 MG TABLET.EC PO SCH (09:58)
[2017-09-23] MEDS: CLOPIDOGREL BISULFATE 75 MG TABLET (FP) PO SCH (09:58)
[2017-09-23] MEDS: FOLIC ACID 1 MG TABLET (FP) PO SCH (09:58)
[2017-09-23] MEDS: COLLAGENASE CLOSTRIDIUM HIST. 30 GRAMS TUBE TP SCH (09:59)
[2017-09-23] MEDS: NYSTATIN POWDER 100,000 UNITS/GM - 15 GM TOPICAL POWDER TP SCH (09:59)
[2017-09-23] MEDS: POLYETHYLENE GLYCOL 3350 119 GM BTL PO SCH ×2 (09:59→21:45)
[2017-09-23] MEDS: CHLORTHALIDONE 25 MG TABLET PO SCH (10:01)
[2017-09-23] MEDS: ETHACRYNIC ACID 25 MG TABLET PO SCH ×2 (10:02→21:43)
--- NOTE | 2017-09-23 13:10 | PN ---
Progress Note (short form) - Note Progress Note: NAD on 5 L NC O2. NIPPV support overnight. No CP. Breathing improving. Intake & Output 09/20/17 09/21/17 09/22/17 09/23/17 23:59 23:59 23:59 23:59 Intake Total 300 190 580 Output Total 1400 1300 1050 700 Balance -1100 -1110 -470 -700 Weight 276 lb 9.6 oz 279 lb 9.6 oz 278 lb 6.4 oz Last Vital Signs Temp Pulse Resp BP Pulse Ox 97.5 F L 68 20 145/67 100 09/23/17 08:13 09/23/17 08:13 09/23/17 08:13 09/23/17 08:13 09/23/17 08:11 Active Medications Acetaminophen (Tylenol -) 650 mg PO Q4H PRN PRN Reason: FEVER Last Admin: 09/19/17 02:30 Dose: 650 mg Amlodipine Besylate (Norvasc -) 10 mg PO DAILY [facility] Last Admin: 09/23/17 09:58 Dose: 10 mg Aspirin (Ecotrin -) 81 mg PO DAILY [facility] Last Admin: 09/23/17 09:58 Dose: 81 mg Atorvastatin Calcium (Lipitor -) 10 mg PO HS [facility] Last Admin: 09/22/17 23:04 Dose: 10 mg Bisacodyl (Dulcolax Suppository -) 10 mg RC DAILY PRN PRN Reason: CONSTIPATION Last Admin: 09/22/17 15:14 Dose: 10 mg Brimonidine Tartrate (Alphagan P 0.1% -) 1 drop OU TID [facility] Last Admin: 09/23/17 07:24 Dose: 1 drop Chlorthalidone (Hygroton -) 100 mg PO DAILY [facility] Last Admin: 09/23/17 10:01 Dose: 100 mg Clopidogrel Bisulfate (Plavix -) 75 mg PO DAILY [facility] Last Admin: 09/23/17 09:58 Dose: 75 mg Collagenase (Santyl -) 1 applic TP DAILY [facility] Last Admin: 09/23/17 09:59 Dose: 1 applic Docusate Sodium (Colace -) 200 mg PO DAILY [facility] Last Admin: 09/23/17 09:57 Dose: 200 mg Epoetin Michael (Epogen -) 4,000 unit IVPUSH ONCE ONE Stop: 09/23/17 14:10 Ethacrynic Acid (Edecrin -) 75 mg PO BID [facility] Last Admin: 09/23/17 10:02 Dose: 75 mg Ferrous Sulfate (Feosol -) 325 mg PO DAILY@0800 [facility] Last Admin: 09/23/17 07:58 Dose: 325 mg Folic Acid (Folic Acid -) 1 mg PO DAILY [facility] Last Admin: 09/23/17 09:58 Dose: 1 mg Gabapentin (Neurontin -) 600 mg PO TID [facility] Last Admin: 09/23/17 07:23 Dose: 600 mg Hydralazine HCl (Apresoline -) 75 mg PO TID [facility] Last Admin: 09/23/17 07:23 Dose: 75 mg Meropenem 500 mg/ Dextrose 100 mls @ 200 mls/hr IVPB DAILY@0600 [facility] Last Admin: 09/23/17 07:24 Dose: 200 mls/hr Sodium Chloride (Normal Saline -) 250 mls @ 3,000 mls/hr IV PRN PRN PRN Reason: Hypotension during Dialysis Stop: 09/23/17 14:09 Insulin Aspart (Novolog Vial Sliding Scale -) 1 vial SQ TIDAC [facility]; Protocol Last Admin: 09/23/17 11:59 Dose: Not Given Insulin Detemir (Levemir Vial) 95 units SQ AM [facility] Last Admin: 09/23/17 07:47 Dose: Not Given Lactic Acid (Lac-Hydrin 12) 1 applic TP BID PRN PRN Reason: xerosis Metoprolol Tartrate (Lopressor -) 25 mg PO BID [facility] Last Admin: 09/23/17 09:58 Dose: 25 mg Non-Formulary Medication (Brinzolamide [Azopt]) 1 drop OU TID [facility] Nystatin (Nystop Powder -) 1 applic TP DAILY [facility] Last Admin: 09/23/17 09:59 Dose: 1 applic Ofloxacin (Ocuflox 0.3% Eye Drops -) 1 drop OU TID [facility] Last Admin: 09/23/17 07:24 Dose: 1 drop Ondansetron HCl (Zofran Injection) 4 mg IVPUSH Q8H PRN PRN Reason: NAUSEA Polyethylene Glycol (Miralax (For Daily Use) -) 17 gm PO BID [facility] Last Admin: 09/23/17 09:59 Dose: 17 grams Ranitidine HCl (Zantac -) 150 mg PO DAILY [facility] Last Admin: 09/23/17 09:58 Dose: 150 mg Constitutional: Yes: Mildly tachypneic at rest, Obese Eyes: Yes: WNL HENT: Yes: WNL Neck: Yes: brace Cardiovascular: Yes: Regular Rate and Rhythm, S1, S2 Respiratory: Yes: Diminished Gastrointestinal: Yes: Normal Bowel Sounds, Soft Extremities: Yes: WNL Edema: Yes Labs: Laboratory Results - last 24 hr 09/22/17 09/23/17 09/23/17 16:49 06:00 07:21 WBC 13.3 H RBC 2.81 L Hgb 7.6 L Hct 23.4 L MCV 83.0 MCH 27.0 MCHC 32.5 RDW 15.1 Plt Count 588 H MPV 8.3 Absolute Neuts (auto) 10.4 Neutrophils % 78.2 Lymphocytes % 10.0 D Monocytes % 8.8 Eosinophils % 2.2 D Basophils % 0.8 POC Glucometer 245 223 Problem List - Problems (1) Dyspnea Code(s): R06.00 - DYSPNEA, UNSPECIFIED (2) Back pain Code(s): M54.9 - DORSALGIA, UNSPECIFIED (3) CHF (congestive heart failure) Code(s): I50.9 - HEART FAILURE, UNSPECIFIED (4) Cervical myelopathy Code(s): G95.9 - DISEASE OF SPINAL CORD, UNSPECIFIED (5) HTN (hypertension) Code(s): I10 - ESSENTIAL (PRIMARY) HYPERTENSION (6) DOMINIK (obstructive sleep apnea) Code(s): G47.33 - OBSTRUCTIVE SLEEP APNEA (ADULT) (PEDIATRIC) (7) S/P TAVR (transcatheter aortic valve replacement) Code(s): Z95.2 - PRESENCE OF PROSTHETIC HEART VALVE (8) Acute on chronic kidney failure Code(s): N17.9 - ACUTE KIDNEY FAILURE, UNSPECIFIED; N18.9 - CHRONIC KIDNEY DISEASE, UNSPECIFIED (9) Diabetes Code(s): E11.9 - TYPE 2 DIABETES MELLITUS WITHOUT COMPLICATIONS Assessment/Plan Cervical Spinal Stenosis s/p C2-T2 Laminectomies/Posterior Fusions Respiratory distress DYSPNEA VOLUME OVERLOAD CAD Aortic Stenosis s/p AVR HTN DM CKD DOMINIK ANEMIA Toe Ulcer - NIPPV QHS and PRN / Wean FiO2 as tolerated - HD as per renal - diuretics as tolerated - pain control - incentive spirometry - monitor urine output, creatinine - rehab/PT - monitor lytes - DVT prophylaxis - ABX per ID Dr Ortez
[2017-09-23] MEDS ORDERED: LACTULOSE 20 GM/30 ML UDC (FOR ORAL USE ONLY) PO ONE (13:46)
--- NOTE | 2017-09-23 13:47 | PN ---
Progress Note, Physician History of Present Illness: Pt is alert, currently afebrile. Denies shortness of breath. Denies abd pain but difficulty defecating despite enemas. Small BM yesterday. No other complaints. - Current Medication List Current Medications: Active Medications Acetaminophen (Tylenol -) 650 mg PO Q4H PRN PRN Reason: FEVER Last Admin: 09/19/17 02:30 Dose: 650 mg Amlodipine Besylate (Norvasc -) 10 mg PO DAILY [facility] Last Admin: 09/23/17 09:58 Dose: 10 mg Aspirin (Ecotrin -) 81 mg PO DAILY [facility] Last Admin: 09/23/17 09:58 Dose: 81 mg Atorvastatin Calcium (Lipitor -) 10 mg PO HS [facility] Last Admin: 09/22/17 23:04 Dose: 10 mg Bisacodyl (Dulcolax Suppository -) 10 mg RC DAILY PRN PRN Reason: CONSTIPATION Last Admin: 09/22/17 15:14 Dose: 10 mg Brimonidine Tartrate (Alphagan P 0.1% -) 1 drop OU TID [facility] Last Admin: 09/23/17 07:24 Dose: 1 drop Chlorthalidone (Hygroton -) 100 mg PO DAILY [facility] Last Admin: 09/23/17 10:01 Dose: 100 mg Clopidogrel Bisulfate (Plavix -) 75 mg PO DAILY [facility] Last Admin: 09/23/17 09:58 Dose: 75 mg Collagenase (Santyl -) 1 applic TP DAILY [facility] Last Admin: 09/23/17 09:59 Dose: 1 applic Docusate Sodium (Colace -) 200 mg PO DAILY [facility] Last Admin: 09/23/17 09:57 Dose: 200 mg Epoetin Michael (Epogen -) 4,000 unit IVPUSH ONCE ONE Stop: 09/23/17 14:10 Ethacrynic Acid (Edecrin -) 75 mg PO BID [facility] Last Admin: 09/23/17 10:02 Dose: 75 mg Ferrous Sulfate (Feosol -) 325 mg PO DAILY@0800 [facility] Last Admin: 09/23/17 07:58 Dose: 325 mg Folic Acid (Folic Acid -) 1 mg PO DAILY [facility] Last Admin: 09/23/17 09:58 Dose: 1 mg Gabapentin (Neurontin -) 600 mg PO TID [facility] Last Admin: 06/10/18 07:23 Dose: 600 mg Hydralazine HCl (Apresoline -) 75 mg PO TID [facility] Last Admin: 09/23/17 07:23 Dose: 75 mg Meropenem 500 mg/ Dextrose 100 mls @ 200 mls/hr IVPB DAILY@0600 [facility] Last Admin: 09/23/17 07:24 Dose: 200 mls/hr Sodium Chloride (Normal Saline -) 250 mls @ 3,000 mls/hr IV PRN PRN PRN Reason: Hypotension during Dialysis Stop: 09/23/17 14:09 Insulin Aspart (Novolog Vial Sliding Scale -) 1 vial SQ TIDAC [facility]; Protocol Last Admin: 09/23/17 11:59 Dose: Not Given Insulin Detemir (Levemir Vial) 95 units SQ AM [facility] Last Admin: 09/23/17 07:47 Dose: Not Given Lactic Acid (Lac-Hydrin 12) 1 applic TP BID PRN PRN Reason: xerosis Metoprolol Tartrate (Lopressor -) 25 mg PO BID [facility] Last Admin: 09/23/17 09:58 Dose: 25 mg Non-Formulary Medication (Brinzolamide [Azopt]) 1 drop OU TID [facility] Nystatin (Nystop Powder -) 1 applic TP DAILY [facility] Last Admin: 09/23/17 09:59 Dose: 1 applic Ofloxacin (Ocuflox 0.3% Eye Drops -) 1 drop OU TID [facility] Last Admin: 09/23/17 07:24 Dose: 1 drop Ondansetron HCl (Zofran Injection) 4 mg IVPUSH Q8H PRN PRN Reason: NAUSEA Polyethylene Glycol (Miralax (For Daily Use) -) 17 gm PO BID [facility] Last Admin: 09/23/17 09:59 Dose: 17 grams Ranitidine HCl (Zantac -) 150 mg PO DAILY [facility] Last Admin: 09/23/17 09:58 Dose: 150 mg - Objective Vital Signs: Vital Signs Temperature 97.5 F L 09/23/17 08:13 Pulse Rate 68 09/23/17 08:13 Respiratory Rate 20 09/23/17 08:13 Blood Pressure 145/67 09/23/17 08:13 O2 Sat by Pulse Oximetry (%) 100 09/23/17 08:11 Constitutional: Yes: No Distress Neck: Yes: Other (cervical collar) Cardiovascular: Yes: Regular Rate and Rhythm Respiratory: Yes: Regular Gastrointestinal: Yes: Normal Bowel Sounds, Soft, Abdomen, Obese Neurological: Yes: Alert Labs: CBC, BMP 09/23/17 06:00 09/22/17 05:30 INR, PTT INR 1.35 (0.82-1.09) H D 09/21/17 05:40 Problem List - Problems (1) CHF (congestive heart failure) Code(s): I50.9 - HEART FAILURE, UNSPECIFIED (2) DOMINIK (obstructive sleep apnea) Code(s): G47.33 - OBSTRUCTIVE SLEEP APNEA (ADULT) (PEDIATRIC) (3) Diabetes Code(s): E11.9 - TYPE 2 DIABETES MELLITUS WITHOUT COMPLICATIONS (4) Back pain Code(s): M54.9 - DORSALGIA, UNSPECIFIED (5) HTN (hypertension) Code(s): I10 - ESSENTIAL (PRIMARY) HYPERTENSION (6) S/P TAVR (transcatheter aortic valve replacement) Code(s): Z95.2 - PRESENCE OF PROSTHETIC HEART VALVE (7) Cervical myelopathy Code(s): G95.9 - DISEASE OF SPINAL CORD, UNSPECIFIED (8) Lumbosacral spondylosis Code(s): M47.817 - SPONDYLS W/O MYELOPATHY OR RADICULOPATHY, LUMBOSACR REGION Assessment/Plan Fever - resolving Leukocytosis - decreased wbc from yesterday Cervical Spinal Stenosis s/p C2-T2 Laminectomies/Posterior Fusions Aortic Stenosis s/p AVR CAD HTN DM CKD DOMINIK Toe Ulcer - dry/without erythema Constipation - continue monitor wbc trend, vitals - continue antibiotics for now - Medical team to evaluate for constipation - SOB improving
[2017-09-23] MEDS ORDERED: EPOETIN ALFA 2,000 UNIT/1 ML VIAL IVPUSH ONE (14:09)
--- NOTE | 2017-09-23 15:34 | PN ---
Progress Note (short form) - Note Progress Note: Subjective: The patient was seen and examined at the bedside, he complains of constipation Will try lactulose Patient reports enema didn't work for him Current Medications Generic Name Dose Route Start Last Admin Trade Name Car PRN Reason Stop Dose Admin Acetaminophen 650 mg 09/14/17 08:50 09/19/17 02:30 Tylenol - PO 650 mg Q4H PRN Administration FEVER Amlodipine Besylate 10 mg 09/14/17 10:00 09/23/17 09:58 Norvasc - PO 10 mg DAILY ELENA Administration Aspirin 81 mg 09/14/17 10:00 09/23/17 09:58 Ecotrin - PO 81 mg DAILY ELENA Administration Atorvastatin Calcium 10 mg 09/14/17 22:00 09/22/17 23:04 Lipitor - PO 10 mg HS ELENA Administration Bisacodyl 10 mg 09/20/17 10:00 09/22/17 15:14 Dulcolax Suppository - RC 10 mg DAILY PRN Administration CONSTIPATION Brimonidine Tartrate 1 drop 09/14/17 14:00 09/23/17 07:24 Alphagan P 0.1% - OU 1 drop TID ELENA Administration Chlorthalidone 100 mg 09/19/17 10:00 09/23/17 10:01 Hygroton - PO 100 mg DAILY ELENA Administration Clopidogrel Bisulfate 75 mg 09/14/17 10:00 09/23/17 09:58 Plavix - PO 75 mg DAILY ELENA Administration Collagenase 1 applic 09/14/17 10:00 09/23/17 09:59 Santyl - TP 1 applic DAILY ELENA Administration Docusate Sodium 200 mg 09/14/17 10:00 09/23/17 09:57 Colace - PO 200 mg DAILY ELENA Administration Epoetin Michael 4,000 unit 09/23/17 14:09 Epogen - IVPUSH 09/23/17 14:10 ONCE ONE Ethacrynic Acid 75 mg 09/19/17 22:00 09/23/17 10:02 Edecrin - PO 75 mg BID ELENA Administration Ferrous Sulfate 325 mg 09/15/17 08:00 09/23/17 07:58 Feosol - PO 325 mg DAILY@0800 ELENA Administration Folic Acid 1 mg 09/14/17 10:00 09/23/17 09:58 Folic Acid - PO 1 mg DAILY ELENA Administration Gabapentin 600 mg 06/01/18 14:00 09/23/17 07:23 Neurontin - PO 600 mg TID ELENA Administration Hydralazine HCl 75 mg 09/14/17 14:00 09/23/17 07:23 Apresoline - PO 75 mg TID ELENA Administration Meropenem 500 mg/ Dextrose 100 mls @ 200 mls/hr 09/16/17 15:00 09/23/17 07:24 IVPB 200 mls/hr DAILY@0600 ELENA Administration Sodium Chloride 250 mls @ 3,000 mls/hr 09/22/17 14:09 Normal Saline - IV 09/23/17 14:09 PRN PRN Hypotension during Dialysis Insulin Aspart 1 vial 09/14/17 11:00 09/23/17 11:59 Novolog Vial Sliding Scale - SQ Not Given TIDAC [facility] Protocol Insulin Detemir 95 units 09/15/17 07:00 09/23/17 07:47 Levemir Vial SQ Not Given AM [facility] Lactic Acid 1 applic 09/14/17 08:50 Lac-Hydrin 12 TP BID PRN xerosis Metoprolol Tartrate 25 mg 09/14/17 10:00 09/23/17 09:58 Lopressor - PO 25 mg BID [facility] Administration Non-Formulary Medication 1 drop 09/14/17 14:00 Brinzolamide [Azopt] OU TID ELENA Nystatin 1 applic 09/14/17 10:00 09/23/17 09:59 Nystop Powder - TP 1 applic DAILY [facility] Administration Ofloxacin 1 drop 09/14/17 14:00 09/23/17 07:24 Ocuflox 0.3% Eye Drops - OU 1 drop TID [facility] Administration Ondansetron HCl 4 mg 09/14/17 08:50 Zofran Injection IVPUSH Q8H PRN NAUSEA Polyethylene Glycol 17 gm 09/19/17 22:00 09/23/17 09:59 Miralax (For Daily Use) - PO 17 grams BID ELENA Administration Ranitidine HCl 150 mg 09/14/17 10:00 09/23/17 09:58 Zantac - PO 150 mg DAILY ELENA Administration Objective: Vital Signs Period Temp Pulse Resp BP Sys/Kauffman Pulse Ox Last 24 Hr 97.5 F-98.8 F 61-72 18-20 126-145/48-67 99-100 Physical Exam: General: NAD, A&Ox3 HEENT: C-collar in place Lungs: CTA anteriorly Heart: RRR, S1S2 Back: Dressing in place, c/d/i Ext: B/l upper and lower extremity edema Lower ext: dressing on left foot, c/d/i CBCD WBC 13.3 K/mm3 (4.0-10.0) H 09/23/17 06:00 RBC 2.81 M/mm3 (4.00-5.60) L 09/23/17 06:00 Hgb 7.6 GM/dL (11.7-16.9) L 09/23/17 06:00 Hct 23.4 % (35.4-49) L 09/23/17 06:00 MCV 83.0 fl (80-96) 09/23/17 06:00 MCHC 32.5 g/dl (32.0-35.9) 09/23/17 06:00 RDW 15.1 % (11.9-15.9) 09/23/17 06:00 Plt Count 588 K/MM3 (134-434) H 09/23/17 06:00 MPV 8.3 fl (7.5-11.1) 09/23/17 06:00 CMP Sodium 137 mmol/L (136-145) 09/22/17 05:30 Potassium 4.7 mmol/L (3.5-5.1) 09/22/17 05:30 Chloride 101 mmol/L (98-107) 09/22/17 05:30 Carbon Dioxide 26 mmol/L (21-32) 09/22/17 05:30 Anion Gap 10 (8-16) 09/22/17 05:30 BUN 67 mg/dL (7-18) H D 09/22/17 05:30 Creatinine 3.3 mg/dL (0.7-1.3) H D 09/22/17 05:30 Creat Clearance w eGFR 18.68 (>60) 09/22/17 05:30 Random Glucose 215 mg/dL (74-106) H 09/22/17 05:30 Calcium 7.7 mg/dL (8.5-10.1) L 09/22/17 05:30 Total Bilirubin 0.3 mg/dL (0.2-1.0) D 09/22/17 05:30 AST 83 U/L (15-37) H D 09/22/17 05:30 ALT 52 U/L (12-78) D 09/22/17 05:30 Alkaline Phosphatase 162 U/L (45-117) H 09/22/17 05:30 Total Protein 6.1 g/dl (6.4-8.2) L 09/22/17 05:30 Albumin 1.9 g/dl (3.4-5.0) L 09/22/17 05:30 Microbiology 09/16/17 11:00 Blood - Peripheral Venous Blood Culture - Final NO GROWTH AFTER 5 DAYS INCUBATION 09/16/17 10:30 Blood - Peripheral Venous Blood Culture - Final NO GROWTH AFTER 5 DAYS INCUBATION 09/17/17 15:00 Urine - Urine - Catheterized Urine Culture - Final NO GROWTH OBTAINED 09/13/17 10:15 Blood - Peripheral Venous Blood Culture - Final NO GROWTH AFTER 5 DAYS INCUBATION 09/13/17 09:25 Blood - Peripheral Venous Blood Culture - Final NO GROWTH AFTER 5 DAYS INCUBATION 09/12/17 09:00 Foot - Left Gram Stain - Final 09/12/17 09:00 Foot - Left Wound Culture - Final Staphylococcus Aureus 09/13/17 08:25 Urine - Urine Joshua Urine Culture - Final NO GROWTH OBTAINED 09/12/17 17:00 Urine - Urine Joshua Urine Culture - Final NO GROWTH OBTAINED Assessment: This is a 67 year old male with PMHx of HTN, DM, hyperlipidemia, obesity, sleep apnea, CKD, s/p RCA stent 05/30/10, s/p TAVR on 07/04/13, wheelchair bound, cardiac cath 06/17/13, who is s/p C2-T12 laminectomy and C7-T1 osteotomies, deformity correction and C2-T2 posterior fusion on 09/11. Plan: 1) CKD - Volume overloaded, continue chlorthalidone - For HD today - Renal ultrasound - Appreciate nephrology consult 2) Fever - Last febrile 101.2 on 09/19/17 - WBC trending down - Consider story-imaging if fevers persist - Continue Meropenem per ID - Appreciate ID consult 3) S/p C2-T12 laminectomy and C7-T1 osteotomies, deformity correction and C2-T2 posterior fusion on 09/11 - C-collar in place (continue 23/24 hours a day) - Pain management - Appreciate surgery consult 4) Left big toe wound - Staph aureus from wound culture - Ammonia lactate bid - Santyl daily to left big toe - Heel pads bilaterally - Appreciate podiatry consult; low suspicion that foot ulcer is source of fever 4) CAD - Continue ASA - Continue Plavix - Appreciate cardiology consult 5) HTN - Continue Norvasc - Continue Hydralazine 6) DM - BGM ACHS - ISS ACHS - Continue Levemir 95u sq AM 7) Sleep apnea - Bipap 8) F/E/N: - Dysphagia chopped - Monitor electrolytes 9) Prophylaxis: - Chemical DVT prophylaxis per surgery 10) Dispo: - Requires continued inpatient care CODE STATUS: FULL CODE Visit type - Emergency Visit Emergency Visit: Yes ED Registration Date: 09/11/17 Care time: The patient presented to the Emergency Department on the above date and was hospitalized for further evaluation of their emergent condition. - New Patient This patient is new to me today: No - Critical Care Critical Care patient: No
--- NOTE | 2017-09-23 15:47 | PN ---
Progress Note, Physician History of Present Illness: Pt seen and examined at bedside. He says that his breathing is a little better however still has shortness of breath. - Current Medication List Current Medications: Active Medications Acetaminophen (Tylenol -) 650 mg PO Q4H PRN PRN Reason: FEVER Last Admin: 09/19/17 02:30 Dose: 650 mg Amlodipine Besylate (Norvasc -) 10 mg PO DAILY [facility] Last Admin: 09/23/17 09:58 Dose: 10 mg Aspirin (Ecotrin -) 81 mg PO DAILY [facility] Last Admin: 09/23/17 09:58 Dose: 81 mg Atorvastatin Calcium (Lipitor -) 10 mg PO HS [facility] Last Admin: 09/22/17 23:04 Dose: 10 mg Bisacodyl (Dulcolax Suppository -) 10 mg RC DAILY PRN PRN Reason: CONSTIPATION Last Admin: 09/22/17 15:14 Dose: 10 mg Brimonidine Tartrate (Alphagan P 0.1% -) 1 drop OU TID [facility] Last Admin: 09/23/17 07:24 Dose: 1 drop Chlorthalidone (Hygroton -) 100 mg PO DAILY [facility] Last Admin: 09/23/17 10:01 Dose: 100 mg Clopidogrel Bisulfate (Plavix -) 75 mg PO DAILY [facility] Last Admin: 09/23/17 09:58 Dose: 75 mg Collagenase (Santyl -) 1 applic TP DAILY [facility] Last Admin: 09/23/17 09:59 Dose: 1 applic Docusate Sodium (Colace -) 200 mg PO DAILY [facility] Last Admin: 09/23/17 09:57 Dose: 200 mg Epoetin Mihcael (Epogen -) 4,000 unit IVPUSH ONCE ONE Stop: 09/23/17 14:10 Ethacrynic Acid (Edecrin -) 75 mg PO BID [facility] Last Admin: 09/23/17 10:02 Dose: 75 mg Ferrous Sulfate (Feosol -) 325 mg PO DAILY@0800 [facility] Last Admin: 09/23/17 07:58 Dose: 325 mg Folic Acid (Folic Acid -) 1 mg PO DAILY [facility] Last Admin: 09/23/17 09:58 Dose: 1 mg Gabapentin (Neurontin -) 600 mg PO TID [facility] Last Admin: 09/23/17 07:23 Dose: 600 mg Hydralazine HCl (Apresoline -) 75 mg PO TID [facility] Last Admin: 09/23/17 07:23 Dose: 75 mg Meropenem 500 mg/ Dextrose 100 mls @ 200 mls/hr IVPB DAILY@0600 [facility] Last Admin: 09/23/17 07:24 Dose: 200 mls/hr Sodium Chloride (Normal Saline -) 250 mls @ 3,000 mls/hr IV PRN PRN PRN Reason: Hypotension during Dialysis Stop: 09/23/17 14:09 Insulin Aspart (Novolog Vial Sliding Scale -) 1 vial SQ TIDAC [facility]; Protocol Last Admin: 09/23/17 11:59 Dose: Not Given Insulin Detemir (Levemir Vial) 95 units SQ AM [facility] Last Admin: 09/23/17 07:47 Dose: Not Given Lactic Acid (Lac-Hydrin 12) 1 applic TP BID PRN PRN Reason: xerosis Metoprolol Tartrate (Lopressor -) 25 mg PO BID [facility] Last Admin: 09/23/17 09:58 Dose: 25 mg Non-Formulary Medication (Brinzolamide [Azopt]) 1 drop OU TID [facility] Nystatin (Nystop Powder -) 1 applic TP DAILY [facility] Last Admin: 09/23/17 09:59 Dose: 1 applic Ofloxacin (Ocuflox 0.3% Eye Drops -) 1 drop OU TID [facility] Last Admin: 09/23/17 07:24 Dose: 1 drop Ondansetron HCl (Zofran Injection) 4 mg IVPUSH Q8H PRN PRN Reason: NAUSEA Polyethylene Glycol (Miralax (For Daily Use) -) 17 gm PO BID [facility] Last Admin: 09/23/17 09:59 Dose: 17 grams Ranitidine HCl (Zantac -) 150 mg PO DAILY [facility] Last Admin: 09/23/17 09:58 Dose: 150 mg - Objective Vital Signs: Vital Signs Temperature 98 F 09/23/17 14:35 Pulse Rate 64 09/23/17 14:35 Respiratory Rate 20 09/23/17 14:35 Blood Pressure 130/62 09/23/17 14:35 O2 Sat by Pulse Oximetry (%) 100 09/23/17 08:11 Constitutional: Yes: Calm Eyes: Yes: Conjunctiva Clear Cardiovascular: Yes: S1, S2 Respiratory: Yes: On Nasal O2 Gastrointestinal: Yes: Soft, Abdomen, Obese Genitourinary: Yes: Joshua Present Musculoskeletal: Yes: Muscle Weakness Edema: Yes Neurological: Yes: Oriented Psychiatric: Yes: Oriented Labs: CBC, BMP 09/23/17 06:00 09/22/17 05:30 INR, PTT INR 1.35 (0.82-1.09) H D 09/21/17 05:40 Problem List - Problems (1) Acute on chronic kidney failure Code(s): N17.9 - ACUTE KIDNEY FAILURE, UNSPECIFIED; N18.9 - CHRONIC KIDNEY DISEASE, UNSPECIFIED (2) CHF (congestive heart failure) Code(s): I50.9 - HEART FAILURE, UNSPECIFIED (3) Diabetes Code(s): E11.9 - TYPE 2 DIABETES MELLITUS WITHOUT COMPLICATIONS (4) HTN (hypertension) Code(s): I10 - ESSENTIAL (PRIMARY) HYPERTENSION Assessment/Plan Current Medications Generic Name Dose Route Start Last Admin Trade Name Freq PRN Reason Stop Dose Admin Acetaminophen 650 mg 09/14/17 08:50 09/19/17 02:30 Tylenol - PO 650 mg Q4H PRN Administration FEVER Amlodipine Besylate 10 mg 09/14/17 10:00 09/23/17 09:58 Norvasc - PO 10 mg DAILY ELENA Administration Aspirin 81 mg 09/14/17 10:00 09/23/17 09:58 Ecotrin - PO 81 mg DAILY ELENA Administration Atorvastatin Calcium 10 mg 09/14/17 22:00 09/22/17 23:04 Lipitor - PO 10 mg HS ELENA Administration Bisacodyl 10 mg 09/20/17 10:00 09/22/17 15:14 Dulcolax Suppository - RC 10 mg DAILY PRN Administration CONSTIPATION Brimonidine Tartrate 1 drop 09/14/17 14:00 09/23/17 07:24 Alphagan P 0.1% - OU 1 drop TID ELENA Administration Chlorthalidone 100 mg 09/19/17 10:00 09/23/17 10:01 Hygroton - PO 100 mg DAILY ELENA Administration Clopidogrel Bisulfate 75 mg 09/14/17 10:00 09/23/17 09:58 Plavix - PO 75 mg DAILY ELENA Administration Collagenase 1 applic 09/14/17 10:00 09/23/17 09:59 Santyl - TP 1 applic DAILY ELENA Administration Docusate Sodium 200 mg 09/14/17 10:00 09/23/17 09:57 Colace - PO 200 mg DAILY ELENA Administration Epoetin Michael 4,000 unit 09/23/17 14:09 Epogen - IVPUSH 09/23/17 14:10 ONCE ONE Ethacrynic Acid 75 mg 09/19/17 22:00 09/23/17 10:02 Edecrin - PO 75 mg BID ELENA Administration Ferrous Sulfate 325 mg 09/15/17 08:00 09/23/17 07:58 Feosol - PO 325 mg DAILY@0800 ELENA Administration Folic Acid 1 mg 09/14/17 10:00 09/23/17 09:58 Folic Acid - PO 1 mg DAILY ELENA Administration Gabapentin 600 mg 09/14/17 14:00 09/23/17 07:23 Neurontin - PO 600 mg TID [facility] Administration Hydralazine HCl 75 mg 09/14/17 14:00 09/23/17 07:23 Apresoline - PO 75 mg TID ELENA Administration Meropenem 500 mg/ Dextrose 100 mls @ 200 mls/hr 09/16/17 15:00 09/23/17 07:24 IVPB 200 mls/hr DAILY@0600 [facility] Administration Sodium Chloride 250 mls @ 3,000 mls/hr 09/22/17 14:09 Normal Saline - IV 09/23/17 14:09 PRN PRN Hypotension during Dialysis Insulin Aspart 1 vial 09/14/17 11:00 09/23/17 11:59 Novolog Vial Sliding Scale - SQ Not Given TIDAC [facility] Protocol Insulin Detemir 95 units 09/15/17 07:00 09/23/17 07:47 Levemir Vial SQ Not Given AM [facility] Lactic Acid 1 applic 09/14/17 08:50 Lac-Hydrin 12 TP BID PRN xerosis Metoprolol Tartrate 25 mg 09/14/17 10:00 09/23/17 09:58 Lopressor - PO 25 mg BID [facility] Administration Non-Formulary Medication 1 drop 09/14/17 14:00 Brinzolamide [Azopt] OU TID [facility] Nystatin 1 applic 09/14/17 10:00 09/23/17 09:59 Nystop Powder - TP 1 applic DAILY [facility] Administration Ofloxacin 1 drop 09/14/17 14:00 09/23/17 07:24 Ocuflox 0.3% Eye Drops - OU 1 drop TID ELENA Administration Ondansetron HCl 4 mg 09/14/17 08:50 Zofran Injection IVPUSH Q8H PRN NAUSEA Polyethylene Glycol 17 gm 09/19/17 22:00 09/23/17 09:59 Miralax (For Daily Use) - PO 17 grams BID ELENA Administration Ranitidine HCl 150 mg 09/14/17 10:00 09/23/17 09:58 Zantac - PO 150 mg DAILY ELENA Administration Impression 1. CKD 2. DM 3. cervical spine disease 4. HTN 5. CHF 6. obesity 7. anemia 8. DOMINIK 9. HLD 10. volume overload 11. s/p c2 to t2 decompression and fusion Plan - HD today - check labs in am - pt is making urine but unable to maintain his volume status - neuro-surg follow up - follow renal ultrasound - cont bipap as needed, pt has been on nasal canula - will follow
[2017-09-23] MEDS ORDERED: EPOETIN ALFA 10,000 UNIT/1 ML VIAL IVPUSH ONE (16:15)
[2017-09-23 16:42] LABS: HEMATOCRIT 23.8 % (35.4-49); HEMOGLOBIN 7.6 GM/dL (11.7-16.9); MCH 26.6 pg (25.7-33.7); MCHC 31.9 g/dl (32.0-35.9); MEAN CELL VOLUME 83.5 fl (80-96); MEAN PLT VOLUME 8.5 fl (7.5-11.1); PLATELET COUNT 642 K/MM3 (134-434); RBC 2.85 M/mm3 (4.00-5.60); RDW 15.6 % (11.9-15.9); WHITE BLOOD COUNT 13.3 K/mm3 (4.0-10.0)
[2017-09-23 17:28] LABS: ANION GAP 9 (8-16); BLOOD UREA NITROGEN 83 mg/dL (7-18); CALCIUM 8.3 mg/dL (8.5-10.1); CHLORIDE 99 mmol/L (98-107); CO2 28 mmol/L (21-32); CREATININE 3.7 mg/dL (0.7-1.3); GLUCOSE,RANDOM 273 mg/dL (74-106); PHOSPHOROUS 5.6 mg/dL (2.5-4.9); POTASSIUM 4.6 mmol/L (3.5-5.1); SODIUM 136 mmol/L (136-145)
[2017-09-23] MEDS: ATORVASTATIN CA 10 MG TABLET (FP) PO SCH (21:45)
[2017-09-24] MEDS: INSULIN (LEVEMIR) 100 UNITS/ML UNITS SQ SCH (06:03)
[2017-09-24] MEDS: OFLOXACIN 0.3% OPHTHALMIC SOLUTION 5 ML BOTTLE OU SCH ×3 (06:04→21:34)
[2017-09-24] MEDS: MEROPENEM 500 MG in DEXTROSE 5%-WATER 100 ML IVPB SCH (06:04)
[2017-09-24] MEDS: BRIMONIDINE TARTRATE 0.1% OPHTHALMIC 5 ML BOTTLE OU SCH ×3 (06:04→21:24)
[2017-09-24] MEDS: GABAPENTIN 300 MG CAPSULE (FP) PO SCH ×3 (06:04→21:20)
[2017-09-24] MEDS: hydrALAZINE HCL 25 MG TABLET (FP) PO SCH ×3 (06:04→21:19)
[2017-09-24] MEDS: INSULIN SLIDING SCALE (NOVOLOG) 1 VIAL SQ SCH ×3 (06:56→17:33)
[2017-09-24 07:05] LABS: ALBUMIN 2.1 g/dl (3.4-5.0); ANION GAP 9 (8-16); BILIRUBIN,TOTAL 0.2 mg/dL (0.2-1.0); BLOOD UREA NITROGEN 58 mg/dL (7-18); CALCIUM 8.3 mg/dL (8.5-10.1); CHLORIDE 99 mmol/L (98-107); CO2 29 mmol/L (21-32); GLUCOSE,RANDOM 200 mg/dL (74-106); POTASSIUM 4.7 mmol/L (3.5-5.1); SGOT/AST 40 U/L (15-37); SGPT/ALT 46 U/L (12-78); SODIUM 137 mmol/L (136-145); TOT PROT 6.5 g/dl (6.4-8.2)
[2017-09-24 07:06] LABS: ALK PHOS 133 U/L (45-117)
[2017-09-24 07:42] LABS: BASO % 0.7 % (0-2.0); EOS % 1.6 % (0-4.5); HEMATOCRIT 24.7 % (35.4-49); HEMOGLOBIN 7.9 GM/dL (11.7-16.9); LYMPH % 8.2 % (8-40); MCH 26.7 pg (25.7-33.7); MEAN CELL VOLUME 83.3 fl (80-96); MEAN PLT VOLUME 8.5 fl (7.5-11.1); MONO % 9.8 % (3.8-10.2); NEUT % 79.7 % (42.8-82.8); PLATELET COUNT 667 K/MM3 (134-434); RBC 2.96 M/mm3 (4.00-5.60); RDW 15.5 % (11.9-15.9); WHITE BLOOD COUNT 14.9 K/mm3 (4.0-10.0)
[2017-09-24] MEDS: FOLIC ACID 1 MG TABLET (FP) PO SCH (10:09)
[2017-09-24] MEDS: FERROUS SO4 325 MG TABLET (FP) PO SCH (10:09)
[2017-09-24] MEDS: DOCUSATE SODIUM 100 MG CAPSULE (FP) PO SCH (10:09)
[2017-09-24] MEDS: METOPROLOL TARTRATE 25 MG TABLET (FP) PO SCH ×2 (10:10→21:20)
[2017-09-24] MEDS: ASPIRIN COATED 81 MG TABLET.EC PO SCH (10:10)
[2017-09-24] MEDS: CLOPIDOGREL BISULFATE 75 MG TABLET (FP) PO SCH (10:10)
[2017-09-24] MEDS: amLODIPine BESYLATE 10 MG TABLET (FP) PO SCH (10:10)
[2017-09-24] MEDS: RANITIDINE HCL 150 MG TABLET (FP) PO SCH (10:10)
[2017-09-24] MEDS: ETHACRYNIC ACID 25 MG TABLET PO SCH ×2 (10:10→21:25)
[2017-09-24] MEDS: CHLORTHALIDONE 25 MG TABLET PO SCH (10:11)
[2017-09-24] MEDS: POLYETHYLENE GLYCOL 3350 119 GM BTL PO SCH ×2 (10:11→21:33)
[2017-09-24] MEDS: NYSTATIN POWDER 100,000 UNITS/GM - 15 GM TOPICAL POWDER TP SCH (10:12)
[2017-09-24] MEDS: COLLAGENASE CLOSTRIDIUM HIST. 30 GRAMS TUBE TP SCH (10:12)
--- NOTE | 2017-09-24 10:54 | PN ---
Progress Note, Physician History of Present Illness: PULMONARY ALERT,FEELING BETTER,DYSPNEA IMPROVING - Current Medication List Current Medications: Active Medications Acetaminophen (Tylenol -) 650 mg PO Q4H PRN PRN Reason: FEVER Last Admin: 09/19/17 02:30 Dose: 650 mg Amlodipine Besylate (Norvasc -) 10 mg PO DAILY [facility] Last Admin: 09/24/17 10:10 Dose: 10 mg Aspirin (Ecotrin -) 81 mg PO DAILY [facility] Last Admin: 09/24/17 10:10 Dose: 81 mg Atorvastatin Calcium (Lipitor -) 10 mg PO HS [facility] Last Admin: 09/23/17 21:45 Dose: 10 mg Bisacodyl (Dulcolax Suppository -) 10 mg RC DAILY PRN PRN Reason: CONSTIPATION Last Admin: 09/22/17 15:14 Dose: 10 mg Brimonidine Tartrate (Alphagan P 0.1% -) 1 drop OU TID [facility] Last Admin: 09/24/17 06:04 Dose: 1 drop Chlorthalidone (Hygroton -) 100 mg PO DAILY [facility] Last Admin: 09/24/17 10:11 Dose: 100 mg Clopidogrel Bisulfate (Plavix -) 75 mg PO DAILY [facility] Last Admin: 09/24/17 10:10 Dose: 75 mg Collagenase (Santyl -) 1 applic TP DAILY [facility] Last Admin: 09/24/17 10:12 Dose: 1 applic Docusate Sodium (Colace -) 200 mg PO DAILY [facility] Last Admin: 09/24/17 10:09 Dose: 200 mg Ethacrynic Acid (Edecrin -) 75 mg PO BID [facility] Last Admin: 09/24/17 10:10 Dose: 75 mg Ferrous Sulfate (Feosol -) 325 mg PO DAILY@0800 [facility] Last Admin: 09/24/17 10:09 Dose: 325 mg Folic Acid (Folic Acid -) 1 mg PO DAILY [facility] Last Admin: 09/24/17 10:09 Dose: 1 mg Gabapentin (Neurontin -) 600 mg PO TID [facility] Last Admin: 09/24/17 06:04 Dose: 600 mg Hydralazine HCl (Apresoline -) 75 mg PO TID [facility] Last Admin: 09/24/17 06:04 Dose: 75 mg Meropenem 500 mg/ Dextrose 100 mls @ 200 mls/hr IVPB DAILY@0600 [facility] Last Admin: 09/24/17 06:04 Dose: 200 mls/hr Insulin Aspart (Novolog Vial Sliding Scale -) 1 vial SQ TIDAC [facility]; Protocol Last Admin: 09/24/17 06:56 Dose: 4 units Insulin Detemir (Levemir Vial) 95 units SQ AM [facility] Last Admin: 09/24/17 06:03 Dose: Not Given Lactic Acid (Lac-Hydrin 12) 1 applic TP BID PRN PRN Reason: xerosis Metoprolol Tartrate (Lopressor -) 25 mg PO BID [facility] Last Admin: 09/24/17 10:10 Dose: 25 mg Non-Formulary Medication (Brinzolamide [Azopt]) 1 drop OU TID [facility] Nystatin (Nystop Powder -) 1 applic TP DAILY [facility] Last Admin: 09/24/17 10:12 Dose: 1 applic Ofloxacin (Ocuflox 0.3% Eye Drops -) 1 drop OU TID [facility] Last Admin: 09/24/17 06:04 Dose: 1 drop Ondansetron HCl (Zofran Injection) 4 mg IVPUSH Q8H PRN PRN Reason: NAUSEA Polyethylene Glycol (Miralax (For Daily Use) -) 17 gm PO BID [facility] Last Admin: 09/24/17 10:11 Dose: Not Given Ranitidine HCl (Zantac -) 150 mg PO DAILY [facility] Last Admin: 09/24/17 10:10 Dose: 150 mg - Objective Vital Signs: Vital Signs Temperature 97.6 F 09/24/17 06:00 Pulse Rate 60 09/24/17 06:00 Respiratory Rate 18 09/24/17 07:29 Blood Pressure 138/66 09/24/17 06:00 O2 Sat by Pulse Oximetry (%) 100 09/24/17 07:27 Constitutional: Yes: Well Nourished, Calm, Obese Eyes: Yes: WNL HENT: Yes: WNL Neck: Yes: WNL Cardiovascular: Yes: Regular Rate and Rhythm, S1, S2 Respiratory: Yes: Diminished Gastrointestinal: Yes: Normal Bowel Sounds, Soft Extremities: Yes: WNL Edema: No Labs: CBC, BMP 09/24/17 05:30 09/24/17 05:30 INR, PTT INR 1.35 (0.82-1.09) H D 09/21/17 05:40 Problem List - Problems (1) Dyspnea Code(s): R06.00 - DYSPNEA, UNSPECIFIED (2) Back pain Code(s): M54.9 - DORSALGIA, UNSPECIFIED (3) CHF (congestive heart failure) Code(s): I50.9 - HEART FAILURE, UNSPECIFIED (4) Cervical myelopathy Code(s): G95.9 - DISEASE OF SPINAL CORD, UNSPECIFIED (5) HTN (hypertension) Code(s): I10 - ESSENTIAL (PRIMARY) HYPERTENSION (6) DOMINIK (obstructive sleep apnea) Code(s): G47.33 - OBSTRUCTIVE SLEEP APNEA (ADULT) (PEDIATRIC) (7) S/P TAVR (transcatheter aortic valve replacement) Code(s): Z95.2 - PRESENCE OF PROSTHETIC HEART VALVE (8) Acute on chronic kidney failure Code(s): N17.9 - ACUTE KIDNEY FAILURE, UNSPECIFIED; N18.9 - CHRONIC KIDNEY DISEASE, UNSPECIFIED (9) Diabetes Code(s): E11.9 - TYPE 2 DIABETES MELLITUS WITHOUT COMPLICATIONS Assessment/Plan ASSESSMENT AND PLAN: Cervical Spinal Stenosis s/p C2-T2 Laminectomies/Posterior Fusions Respiratory distress DYSPNEA VOLUME OVERLOAD CAD Aortic Stenosis s/p AVR HTN DM CKD DOMINIK ANEMIA Toe Ulcer - bipap as needed and hs - HD as per renal - diuretics as tolerated - pain control - incentive spirometry - monitor urine output, creatinine - rehab/PT - monitor lytes - DVT prophylaxis - normal transfusion threshold - abx as per id DR [id number]
--- NOTE | 2017-09-24 11:42 | PN ---
Progress Note (short form) - Note Progress Note: Surgery POD #13 C2-T2 decompression and fusion. Patient seen and examined at bedside Pt is feeling much better after repeated dialysis over the weekend His respiratory status has improved and He has remained afebrile. Right hand pain at web space of thumb and index finger continues to improve. Vital Signs Temp 97.6 F 18 06:00 Pulse 60 18 06:00 Resp 18 09/24/17 07:29 BP 138/66 09/24/17 06:00 Pulse Ox 100 09/24/17 07:27 Intake & Output 09/23/17 09/23/17 09/24/17 11:59 23:59 11:59 Intake Total 320 420 Output Total 700 1000 400 Balance -700 -680 20 Weight 278 lb 6.4 oz 259 lb 4 oz Intake: IV 20 20 Trilysis catheter 20 20 IVPB 100 Oral 300 300 Output: Urine 700 1000 400 Joshua 700 1000 400 Other: Voiding Method Indwelling Catheter Indwelling Catheter Indwelling Catheter # Unmeasured Voids Void 1 Bowel Movement Yes Yes Weight Measurement Method Patient Lift Scale Patient Lift Scale CBC, BMP 09/24/17 05:30 09/24/17 05:30 Urine and blood cultures negative PE: A&Ox3,NAD unlabored resp on 4L NC incision over posterior neck is c/d/i with letitia insitu and no evidence of d/ c, surrounding tissue with no erythema, edema or collection. c-collar maintained in good position. right UE with no erythema or edema, still sensitive to touch at web space of thumb and index but much improved. patient can extend thumb and resist although painful. He can initiate finger rom but limited 2/2 pain. AAROM to near full extension. Right long finger triggering. NVID with +2 radial pulse. 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 Trialysis catheter site clean and dry. B/L LE compartments soft, supple and non-tender. sensation to light touch intact throughout. Patient able to dorsi/plantar flex feet and lift feet off bed. Problem List - Problems (1) Cervical myelopathy Assessment/Plan: POD #13 multilevel cervical decompression and fusion patient doing much better after Dialysis. 1) Remove Shiley Catheter per Renal, plan for Permacath placement 2) Conintue DVT prophylaxis 3) Maintain c-collar and keep dressing clean and dry 4) OOB as tolerated to chair- OK to stand and transfer with assist 5) OT/PT for AROM, PROM and AAROM for UE and hand 6) d/c planning for rehab Evaluation and plan discussed with Dr Tinoco Code(s): G95.9 - DISEASE OF SPINAL CORD, UNSPECIFIED
--- NOTE | 2017-09-24 12:57 | PN ---
Progress Note, Physician History of Present Illness: stable doing well spoke with the son patient probably for permacath tomorrow - Current Medication List Current Medications: Active Medications Acetaminophen (Tylenol -) 650 mg PO Q4H PRN PRN Reason: FEVER Last Admin: 09/19/17 02:30 Dose: 650 mg Amlodipine Besylate (Norvasc -) 10 mg PO DAILY [facility] Last Admin: 09/24/17 10:10 Dose: 10 mg Aspirin (Ecotrin -) 81 mg PO DAILY [facility] Last Admin: 09/24/17 10:10 Dose: 81 mg Atorvastatin Calcium (Lipitor -) 10 mg PO HS [facility] Last Admin: 09/23/17 21:45 Dose: 10 mg Bisacodyl (Dulcolax Suppository -) 10 mg RC DAILY PRN PRN Reason: CONSTIPATION Last Admin: 09/22/17 15:14 Dose: 10 mg Brimonidine Tartrate (Alphagan P 0.1% -) 1 drop OU TID [facility] Last Admin: 09/24/17 06:04 Dose: 1 drop Chlorthalidone (Hygroton -) 100 mg PO DAILY [facility] Last Admin: 09/24/17 10:11 Dose: 100 mg Clopidogrel Bisulfate (Plavix -) 75 mg PO DAILY [facility] Last Admin: 09/24/17 10:10 Dose: 75 mg Collagenase (Santyl -) 1 applic TP DAILY [facility] Last Admin: 09/24/17 10:12 Dose: 1 applic Docusate Sodium (Colace -) 200 mg PO DAILY [facility] Last Admin: 09/24/17 10:09 Dose: 200 mg Ethacrynic Acid (Edecrin -) 75 mg PO BID [facility] Last Admin: 09/24/17 10:10 Dose: 75 mg Ferrous Sulfate (Feosol -) 325 mg PO DAILY@0800 [facility] Last Admin: 09/24/17 10:09 Dose: 325 mg Folic Acid (Folic Acid -) 1 mg PO DAILY [facility] Last Admin: 09/24/17 10:09 Dose: 1 mg Gabapentin (Neurontin -) 600 mg PO TID [facility] Last Admin: 09/24/17 06:04 Dose: 600 mg Hydralazine HCl (Apresoline -) 75 mg PO TID [facility] Last Admin: 09/24/17 06:04 Dose: 75 mg Meropenem 500 mg/ Dextrose 100 mls @ 200 mls/hr IVPB DAILY@0600 [facility] Last Admin: 09/24/17 06:04 Dose: 200 mls/hr Insulin Aspart (Novolog Vial Sliding Scale -) 1 vial SQ TIDAC [facility]; Protocol Last Admin: 09/24/17 12:09 Dose: 4 units Insulin Detemir (Levemir Vial) 95 units SQ AM [facility] Last Admin: 09/24/17 06:03 Dose: Not Given Lactic Acid (Lac-Hydrin 12) 1 applic TP BID PRN PRN Reason: xerosis Metoprolol Tartrate (Lopressor -) 25 mg PO BID [facility] Last Admin: 09/24/17 10:10 Dose: 25 mg Non-Formulary Medication (Brinzolamide [Azopt]) 1 drop OU TID [facility] Nystatin (Nystop Powder -) 1 applic TP DAILY [facility] Last Admin: 09/24/17 10:12 Dose: 1 applic Ofloxacin (Ocuflox 0.3% Eye Drops -) 1 drop OU TID [facility] Last Admin: 09/24/17 06:04 Dose: 1 drop Ondansetron HCl (Zofran Injection) 4 mg IVPUSH Q8H PRN PRN Reason: NAUSEA Polyethylene Glycol (Miralax (For Daily Use) -) 17 gm PO BID [facility] Last Admin: 09/24/17 10:11 Dose: Not Given Ranitidine HCl (Zantac -) 150 mg PO DAILY [facility] Last Admin: 09/24/17 10:10 Dose: 150 mg - Objective Vital Signs: Vital Signs Temperature 97.6 F 09/24/17 06:00 Pulse Rate 60 09/24/17 06:00 Respiratory Rate 18 09/24/17 07:29 Blood Pressure 138/66 09/24/17 06:00 O2 Sat by Pulse Oximetry (%) 100 09/24/17 07:27 Constitutional: Yes: No Distress, Calm Neck: Yes: Other (collar in place) Cardiovascular: Yes: Regular Rate and Rhythm Respiratory: Yes: Regular, CTA Bilaterally Gastrointestinal: Yes: Normal Bowel Sounds, Soft Musculoskeletal: Yes: WNL Extremities: Yes: Other Neurological: Yes: Alert, Oriented Psychiatric: Yes: Alert Labs: CBC, BMP 09/24/17 05:30 09/24/17 05:30 INR, PTT INR 1.35 (0.82-1.09) H D 09/21/17 05:40 Assessment/Plan 67 yo male s/p exploration of spinal fusion, C2-T2 laminectomies and C7-T1 osteotomies, deformity correction and C2-T2 posterior fusion. r/o uti numbness leukocytosis Cervical Spinal Stenosis s/p C2-T2 Laminectomies/Posterior Fusions CAD Aortic Stenosis s/p AVR HTN DM CKD DOMINIK Toe Ulcer fever plan continue oral abx continue monitoring for fever rest as per the team patient doing well
--- NOTE | 2017-09-24 13:33 | PN ---
Progress Note, Physician History of Present Illness: Pt seen and examined at bedside. He is awake and alert. He feels that breathing is improved. - Current Medication List Current Medications: Active Medications Acetaminophen (Tylenol -) 650 mg PO Q4H PRN PRN Reason: FEVER Last Admin: 09/19/17 02:30 Dose: 650 mg Amlodipine Besylate (Norvasc -) 10 mg PO DAILY [facility] Last Admin: 09/24/17 10:10 Dose: 10 mg Aspirin (Ecotrin -) 81 mg PO DAILY [facility] Last Admin: 09/24/17 10:10 Dose: 81 mg Atorvastatin Calcium (Lipitor -) 10 mg PO HS [facility] Last Admin: 09/23/17 21:45 Dose: 10 mg Bisacodyl (Dulcolax Suppository -) 10 mg RC DAILY PRN PRN Reason: CONSTIPATION Last Admin: 09/22/17 15:14 Dose: 10 mg Brimonidine Tartrate (Alphagan P 0.1% -) 1 drop OU TID [facility] Last Admin: 09/24/17 06:04 Dose: 1 drop Chlorthalidone (Hygroton -) 100 mg PO DAILY [facility] Last Admin: 09/24/17 10:11 Dose: 100 mg Clopidogrel Bisulfate (Plavix -) 75 mg PO DAILY [facility] Last Admin: 09/24/17 10:10 Dose: 75 mg Collagenase (Santyl -) 1 applic TP DAILY [facility] Last Admin: 09/24/17 10:12 Dose: 1 applic Docusate Sodium (Colace -) 200 mg PO DAILY [facility] Last Admin: 09/24/17 10:09 Dose: 200 mg Ethacrynic Acid (Edecrin -) 75 mg PO BID [facility] Last Admin: 09/24/17 10:10 Dose: 75 mg Ferrous Sulfate (Feosol -) 325 mg PO DAILY@0800 [facility] Last Admin: 09/24/17 10:09 Dose: 325 mg Folic Acid (Folic Acid -) 1 mg PO DAILY [facility] Last Admin: 09/24/17 10:09 Dose: 1 mg Gabapentin (Neurontin -) 600 mg PO TID [facility] Last Admin: 09/24/17 06:04 Dose: 600 mg Hydralazine HCl (Apresoline -) 75 mg PO TID [facility] Last Admin: 09/24/17 06:04 Dose: 75 mg Insulin Aspart (Novolog Vial Sliding Scale -) 1 vial SQ TIDAC [facility]; Protocol Last Admin: 09/24/17 12:09 Dose: 4 units Insulin Detemir (Levemir Vial) 95 units SQ AM [facility] Last Admin: 09/24/17 06:03 Dose: Not Given Lactic Acid (Lac-Hydrin 12) 1 applic TP BID PRN PRN Reason: xerosis Metoprolol Tartrate (Lopressor -) 25 mg PO BID [facility] Last Admin: 09/24/17 10:10 Dose: 25 mg Non-Formulary Medication (Brinzolamide [Azopt]) 1 drop OU TID [facility] Nystatin (Nystop Powder -) 1 applic TP DAILY [facility] Last Admin: 09/24/17 10:12 Dose: 1 applic Ofloxacin (Ocuflox 0.3% Eye Drops -) 1 drop OU TID [facility] Last Admin: 09/24/17 06:04 Dose: 1 drop Ondansetron HCl (Zofran Injection) 4 mg IVPUSH Q8H PRN PRN Reason: NAUSEA Polyethylene Glycol (Miralax (For Daily Use) -) 17 gm PO BID [facility] Last Admin: 09/24/17 10:11 Dose: Not Given Ranitidine HCl (Zantac -) 150 mg PO DAILY [facility] Last Admin: 09/24/17 10:10 Dose: 150 mg - Objective Vital Signs: Vital Signs Temperature 97.6 F 09/24/17 06:00 Pulse Rate 60 09/24/17 06:00 Respiratory Rate 18 09/24/17 07:29 Blood Pressure 138/66 09/24/17 06:00 O2 Sat by Pulse Oximetry (%) 100 09/24/17 07:27 Constitutional: Yes: Calm, Poor Hygeine HENT: Yes: Atraumatic Neck: Yes: Supple Cardiovascular: Yes: S1, S2 Respiratory: Yes: CTA Bilaterally, On Nasal O2 Gastrointestinal: Yes: Soft, Abdomen, Obese Genitourinary: Yes: Joshua Present Edema: Yes Edema: LUE: Trace, RUE: Trace Neurological: Yes: Oriented Psychiatric: Yes: Oriented Labs: CBC, BMP 09/24/17 05:30 09/24/17 05:30 INR, PTT INR 1.35 (0.82-1.09) H D 09/21/17 05:40 Problem List - Problems (1) Acute on chronic kidney failure Code(s): N17.9 - ACUTE KIDNEY FAILURE, UNSPECIFIED; N18.9 - CHRONIC KIDNEY DISEASE, UNSPECIFIED (2) CHF (congestive heart failure) Code(s): I50.9 - HEART FAILURE, UNSPECIFIED (3) Diabetes Code(s): E11.9 - TYPE 2 DIABETES MELLITUS WITHOUT COMPLICATIONS (4) HTN (hypertension) Code(s): I10 - ESSENTIAL (PRIMARY) HYPERTENSION Assessment/Plan Current Medications Generic Name Dose Route Start Last Admin Trade Name Freq PRN Reason Stop Dose Admin Acetaminophen 650 mg 09/14/17 08:50 09/19/17 02:30 Tylenol - PO 650 mg Q4H PRN Administration FEVER Amlodipine Besylate 10 mg 09/14/17 10:00 09/24/17 10:10 Norvasc - PO 10 mg DAILY [facility] Administration Aspirin 81 mg 09/14/17 10:00 09/24/17 10:10 Ecotrin - PO 81 mg DAILY [facility] Administration Atorvastatin Calcium 10 mg 09/14/17 22:00 09/23/17 21:45 Lipitor - PO 10 mg HS [facility] Administration Bisacodyl 10 mg 09/20/17 10:00 09/22/17 15:14 Dulcolax Suppository - RC 10 mg DAILY PRN Administration CONSTIPATION Brimonidine Tartrate 1 drop 09/14/17 14:00 09/24/17 06:04 Alphagan P 0.1% - OU 1 drop TID [facility] Administration Chlorthalidone 100 mg 09/19/17 10:00 09/24/17 10:11 Hygroton - PO 100 mg DAILY [facility] Administration Clopidogrel Bisulfate 75 mg 09/14/17 10:00 09/24/17 10:10 Plavix - PO 75 mg DAILY [facility] Administration Collagenase 1 applic 09/14/17 10:00 09/24/17 10:12 Santyl - TP 1 applic DAILY [facility] Administration Docusate Sodium 200 mg 09/14/17 10:00 09/24/17 10:09 Colace - PO 200 mg DAILY [facility] Administration Ethacrynic Acid 75 mg 09/19/17 22:00 09/24/17 10:10 Edecrin - PO 75 mg BID [facility] Administration Ferrous Sulfate 325 mg 09/15/17 08:00 09/24/17 10:09 Feosol - PO 325 mg DAILY@0800 [facility] Administration Folic Acid 1 mg 09/14/17 10:00 09/24/17 10:09 Folic Acid - PO 1 mg DAILY [facility] Administration Gabapentin 600 mg 09/14/17 14:00 09/24/17 06:04 Neurontin - PO 600 mg TID [facility] Administration Hydralazine HCl 75 mg 09/14/17 14:00 09/24/17 06:04 Apresoline - PO 75 mg TID [facility] Administration Insulin Aspart 1 vial 09/14/17 11:00 09/24/17 12:09 Novolog Vial Sliding Scale - SQ 4 units TIDAC [facility] Administration Protocol Insulin Detemir 95 units 09/15/17 07:00 09/24/17 06:03 Levemir Vial SQ Not Given AM [facility] Lactic Acid 1 applic 09/14/17 08:50 Lac-Hydrin 12 TP BID PRN xerosis Metoprolol Tartrate 25 mg 09/14/17 10:00 09/24/17 10:10 Lopressor - PO 25 mg BID [facility] Administration Non-Formulary Medication 1 drop 09/14/17 14:00 Brinzolamide [Azopt] OU TID [facility] Nystatin 1 applic 09/14/17 10:00 09/24/17 10:12 Nystop Powder - TP 1 applic DAILY [facility] Administration Ofloxacin 1 drop 09/14/17 14:00 09/24/17 06:04 Ocuflox 0.3% Eye Drops - OU 1 drop TID [facility] Administration Ondansetron HCl 4 mg 09/14/17 08:50 Zofran Injection IVPUSH Q8H PRN NAUSEA Polyethylene Glycol 17 gm 09/19/17 22:00 09/24/17 10:11 Miralax (For Daily Use) - PO Not Given BID [facility] Ranitidine HCl 150 mg 09/14/17 10:00 09/24/17 10:10 Zantac - PO 150 mg DAILY [facility] Administration Impression 1. CKD 2. DM 3. cervical spine disease 4. HTN 5. CHF 6. obesity 7. anemia 8. DOMINIK 9. HLD 10. volume overload 11. s/p c2 to t2 decompression and fusion Plan - cont oral diuretics - renal ultrasound reviewed - monitor urine ouput - repeat labs in am - volume status is improved - will likely need a permacath but will monitor labs - neuro-surg follow up - cont bipap as needed, pt has been on nasal canula - will follow
--- NOTE | 2017-09-24 14:04 | PROC ---
Procedure Note Procedure: Right femoral shiley catheter removed after speaking with Dr Andrade. Pressure held for 10 minutes, no bleeding noted and dry dressing applied. Will speak with Dr. Ibrahim regarding Permcath and fisulta placment.
[2017-09-24] MEDS ORDERED: BISACODYL 10 MG SUPP.RECT RC PRN (14:06)
[2017-09-24] MEDS ORDERED: AMMONIUM LACTATE 12% LOTION 225 GM BOTTLE TP PRN (14:06)
[2017-09-24] MEDS ORDERED: ONDANSETRON 4 MG/2 ML VIAL IVPUSH PRN (14:06)
[2017-09-24] MEDS: PATIENT'S OWN MEDICATION (NON-FORMULARY) (Brinzolamide [Azopt] 1 DROP) OU SCH ×2 (15:11→15:13)
[2017-09-24] MEDS: ACETAMINOPHEN 325 MG TABLET (FP) PO PRN ×2 (15:34→21:23)
--- NOTE | 2017-09-24 15:45 | PN ---
Progress Note (short form) - Note Progress Note: Subjective: The patient was seen and examined at the bedside, he has no complaints at this time Current Medications Generic Name Dose Route Start Last Admin Trade Name Car PRN Reason Stop Dose Admin Acetaminophen 650 mg 09/24/17 14:06 09/24/17 15:34 Tylenol - PO 650 mg Q4H PRN Administration FEVER Amlodipine Besylate 10 mg 09/25/17 10:00 Norvasc - PO DAILY [facility] Aspirin 81 mg 09/25/17 10:00 Ecotrin - PO DAILY [facility] Atorvastatin Calcium 10 mg 09/24/17 22:00 Lipitor - PO HS [facility] Bisacodyl 10 mg 09/24/17 14:06 Dulcolax Suppository - RC DAILY PRN CONSTIPATION Brimonidine Tartrate 1 drop 09/24/17 22:00 Alphagan P 0.1% - OU TID [facility] Chlorthalidone 100 mg 09/25/17 10:00 Hygroton - PO DAILY [facility] Clopidogrel Bisulfate 75 mg 09/25/17 10:00 Plavix - PO DAILY [facility] Collagenase 1 applic 09/25/17 10:00 Santyl - TP DAILY [facility] Docusate Sodium 200 mg 09/25/17 10:00 Colace - PO DAILY [facility] Ethacrynic Acid 75 mg 09/24/17 22:00 Edecrin - PO BID [facility] Ferrous Sulfate 325 mg 09/25/17 08:00 Feosol - PO DAILY@0800 [facility] Folic Acid 1 mg 09/25/17 10:00 Folic Acid - PO DAILY [facility] Gabapentin 600 mg 09/24/17 22:00 Neurontin - PO TID [facility] Hydralazine HCl 75 mg 09/24/17 22:00 Apresoline - PO TID [facility] Clindamycin Phosphate 300 mg/ 50 mls @ 104 mls/hr 09/24/17 15:45 Dextrose IVPB Q8H-IV [facility] Protocol Insulin Aspart 1 vial 09/24/17 16:30 Novolog Vial Sliding Scale - SQ TIDAC [facility] Protocol Insulin Detemir 95 units 09/25/17 07:00 Levemir Vial SQ AM [facility] Lactic Acid 1 applic 09/24/17 14:06 Lac-Hydrin 12 TP BID PRN xerosis Metoprolol Tartrate 25 mg 09/24/17 22:00 Lopressor - PO BID [facility] Non-Formulary Medication 1 drop 09/24/17 22:00 Brinzolamide [Azopt] OU TID [facility] Nystatin 1 applic 09/25/17 10:00 Nystop Powder - TP DAILY [facility] Ofloxacin 1 drop 09/24/17 22:00 Ocuflox 0.3% Eye Drops - OU TID [facility] Ondansetron HCl 4 mg 09/24/17 14:06 Zofran Injection IVPUSH Q8H PRN NAUSEA Polyethylene Glycol 17 gm 09/24/17 22:00 Miralax (For Daily Use) - PO BID [facility] Ranitidine HCl 150 mg 09/25/17 10:00 Zantac - PO DAILY [facility] Objective: Vital Signs Period Temp Pulse Resp BP Sys/Kauffman Pulse Ox Last 24 Hr 97.5 F-98.8 F 61-72 18-20 126-145/48-67 99-100 Physical Exam: General: NAD, A&Ox3 HEENT: C-collar in place Lungs: CTA anteriorly Heart: RRR, S1S2 Back: Dressing in place, c/d/i Ext: B/l upper and lower extremity edema, improving Lower ext: dressing on left foot, c/d/i CBCD WBC 14.9 K/mm3 (4.0-10.0) H 09/24/17 05:30 RBC 2.96 M/mm3 (4.00-5.60) L 09/24/17 05:30 Hgb 7.9 GM/dL (11.7-16.9) L 09/24/17 05:30 Hct 24.7 % (35.4-49) L 09/24/17 05:30 MCV 83.3 fl (80-96) 09/24/17 05:30 MCHC 32.0 g/dl (32.0-35.9) 09/24/17 05:30 RDW 15.5 % (11.9-15.9) 09/24/17 05:30 Plt Count 667 K/MM3 (134-434) H 09/24/17 05:30 MPV 8.5 fl (7.5-11.1) 09/24/17 05:30 CMP Sodium 137 mmol/L (136-145) 09/24/17 05:30 Potassium 4.7 mmol/L (3.5-5.1) 09/24/17 05:30 Chloride 99 mmol/L (98-107) 09/24/17 05:30 Carbon Dioxide 29 mmol/L (21-32) 09/24/17 05:30 Anion Gap 9 (8-16) 09/24/17 05:30 BUN 58 mg/dL (7-18) H D 09/24/17 05:30 Creatinine 3.0 mg/dL (0.7-1.3) H 09/24/17 05:30 Creat Clearance w eGFR 20.85 (>60) 09/24/17 05:30 Random Glucose 200 mg/dL (74-106) H D 09/24/17 05:30 Calcium 8.3 mg/dL (8.5-10.1) L 09/24/17 05:30 Total Bilirubin 0.2 mg/dL (0.2-1.0) D 09/24/17 05:30 AST 40 U/L (15-37) H D 09/24/17 05:30 ALT 46 U/L (12-78) 09/24/17 05:30 Alkaline Phosphatase 133 U/L (45-117) H 09/24/17 05:30 Total Protein 6.5 g/dl (6.4-8.2) 09/24/17 05:30 Albumin 2.1 g/dl (3.4-5.0) L 09/24/17 05:30 Microbiology 09/16/17 11:00 Blood - Peripheral Venous Blood Culture - Final NO GROWTH AFTER 5 DAYS INCUBATION 09/16/17 10:30 Blood - Peripheral Venous Blood Culture - Final NO GROWTH AFTER 5 DAYS INCUBATION 09/17/17 15:00 Urine - Urine - Catheterized Urine Culture - Final NO GROWTH OBTAINED 09/13/17 10:15 Blood - Peripheral Venous Blood Culture - Final NO GROWTH AFTER 5 DAYS INCUBATION 09/13/17 09:25 Blood - Peripheral Venous Blood Culture - Final NO GROWTH AFTER 5 DAYS INCUBATION 09/12/17 09:00 Foot - Left Gram Stain - Final 09/12/17 09:00 Foot - Left Wound Culture - Final Staphylococcus Aureus 09/13/17 08:25 Urine - Urine Joshua Urine Culture - Final NO GROWTH OBTAINED 09/12/17 17:00 Urine - Urine Joshua Urine Culture - Final NO GROWTH OBTAINED Assessment: This is a 67 year old male with PMHx of HTN, DM, hyperlipidemia, obesity, sleep apnea, CKD, s/p RCA stent 05/30/10, s/p TAVR on 07/04/13, wheelchair bound, cardiac cath 06/17/13, who is s/p C2-T12 laminectomy and C7-T1 osteotomies, deformity correction and C2-T2 posterior fusion on 09/11. Plan: 1) CKD - Volume overloaded, continue chlorthalidone - For Permacath placement - Improvement in Cr - Renal ultrasound: morphologically normal kidneys with no evidence of hydronephrosis or acute pathology - Appreciate nephrology consult 2) Fever - Resolved - WBC trending up today - Discussed with Dr. Godinez, no need for further imaging now - Discontinue Meropenem and start Clindamycin 300mg tid for another 10 days - Appreciate ID consult 3) S/p C2-T12 laminectomy and C7-T1 osteotomies, deformity correction and C2-T2 posterior fusion on 09/11 - C-collar in place (continue 23/24 hours a day) - Pain management - Appreciate surgery consult 4) Left big toe wound - Staph aureus from wound culture - Ammonia lactate bid - Santyl daily to left big toe - Heel pads bilaterally - Appreciate podiatry consult; low suspicion that foot ulcer is source of fever 4) CAD - Continue ASA - Continue Plavix - Appreciate cardiology consult 5) HTN - Continue Norvasc - Continue Hydralazine 6) DM - BGM ACHS - ISS ACHS - Continue Levemir 95u sq AM 7) Sleep apnea - Bipap 8) F/E/N: - Dysphagia chopped - Monitor electrolytes 9) Prophylaxis: - Chemical DVT prophylaxis per surgery 10) Dispo: - Requires continued inpatient care CODE STATUS: FULL CODE Visit type - Emergency Visit Emergency Visit: Yes ED Registration Date: 09/11/17 Care time: The patient presented to the Emergency Department on the above date and was hospitalized for further evaluation of their emergent condition. - New Patient This patient is new to me today: No - Critical Care Critical Care patient: No
[2017-09-24] MEDS: CLINDAMYCIN IVPB 300 MG in DEXTROSE 5%-WATER - 48 ML IVPB SCH ×2 (18:09)
[2017-09-24] MEDS ORDERED: INSULIN (NOVOLOG) ASPART 100 UNITS/ML 10ML VIAL ONE ×2 (18:49→20:03)
[2017-09-24] MEDS ORDERED: INSULIN (LEVEMIR) 100 UNITS/ML UNITS SQ ONE (20:02)
[2017-09-24] MEDS ORDERED: oxyCODONE HCL 5 MG TABLET PO ONE (21:15)
[2017-09-24] MEDS: ATORVASTATIN CA 10 MG TABLET (FP) PO SCH (21:20)
[2017-09-24] MEDS ORDERED: PATIENT'S OWN MEDICATION (NON-FORMULARY) (Brinzolamide [Azopt] 1 DROP) OU SCH (22:00)
[2017-09-25] MEDS: CLINDAMYCIN IVPB 300 MG in DEXTROSE 5%-WATER - 48 ML IVPB SCH ×3 (01:01→21:33)
[2017-09-25] MEDS: ACETAMINOPHEN 325 MG TABLET (FP) PO PRN (03:27)
[2017-09-25] MEDS: BRIMONIDINE TARTRATE 0.1% OPHTHALMIC 5 ML BOTTLE OU SCH ×3 (05:40→21:33)
[2017-09-25] MEDS: OFLOXACIN 0.3% OPHTHALMIC SOLUTION 5 ML BOTTLE OU SCH ×3 (05:41→21:40)
[2017-09-25] MEDS: GABAPENTIN 300 MG CAPSULE (FP) PO SCH ×3 (06:01→21:37)
[2017-09-25] MEDS: hydrALAZINE HCL 25 MG TABLET (FP) PO SCH ×3 (06:01→21:36)
[2017-09-25] MEDS: INSULIN SLIDING SCALE (NOVOLOG) 1 VIAL SQ SCH ×3 (06:48→18:13)
[2017-09-25] MEDS: INSULIN (LEVEMIR) 100 UNITS/ML UNITS SQ SCH (06:48)
[2017-09-25] MEDS ORDERED: INSULIN (LEVEMIR) 100 UNITS/ML UNITS SQ ONE (06:50)
[2017-09-25] MEDS ORDERED: INSULIN (NOVOLOG) ASPART 100 UNITS/ML 10ML VIAL ONE ×2 (06:51→11:48)
[2017-09-25 07:35] LABS: EOS % 2.2 % (0-4.5); HEMATOCRIT 24.8 % (35.4-49); HEMOGLOBIN 8.2 GM/dL (11.7-16.9); LYMPH % 10.8 % (8-40); MCH 27.6 pg (25.7-33.7); MCHC 33.1 g/dl (32.0-35.9); MEAN CELL VOLUME 83.5 fl (80-96); MEAN PLT VOLUME 8.1 fl (7.5-11.1); MONO % 8.7 % (3.8-10.2); NEUT % 77.3 % (42.8-82.8); PLATELET COUNT 650 K/MM3 (134-434); RBC 2.97 M/mm3 (4.00-5.60); RDW 15.4 % (11.9-15.9); WHITE BLOOD COUNT 13.5 K/mm3 (4.0-10.0)
[2017-09-25 08:00] LABS: CHLORIDE 97 mmol/L (98-107); POTASSIUM 4.5 mmol/L (3.5-5.1); SODIUM 136 mmol/L (136-145)
[2017-09-25 08:34] LABS: ALBUMIN 2.3 g/dl (3.4-5.0); ALK PHOS 127 U/L (45-117); ANION GAP 12 (8-16); BILIRUBIN,TOTAL 0.2 mg/dL (0.2-1.0); BLOOD UREA NITROGEN 76 mg/dL (7-18); CALCIUM 8.4 mg/dL (8.5-10.1); CO2 27 mmol/L (21-32); CREATININE 3.9 mg/dL (0.7-1.3); GLUCOSE,RANDOM 248 mg/dL (74-106); SGOT/AST 30 U/L (15-37); SGPT/ALT 40 U/L (12-78); TOT PROT 6.8 g/dl (6.4-8.2)
--- NOTE | 2017-09-25 09:27 | PN ---
Physical Exam: SUBJECTIVE: Patient seen and examined. He complaints of rectal pain and spasms, not being able to have meaningful bm. Wants to sit in his wheelchair OBJECTIVE: Vital Signs Period Temp Pulse Resp BP Sys/Kauffman Pulse Ox Last 24 Hr 97.6 F-98.8 F 53-60 18-20 127-144/54-72 96-97 PE Neuro: alert, awake, c collar in place Pulm: Clear anteriorly, no sob rhonchi CV: s1 s2 rrr no mrg Abd: obese abd, soft + bc Ext: warm, L foot wound, 2nd toe dried wound , no le edema + DP pulse Laboratory Results - last 24 hr 09/25/17 09/25/17 09/25/17 05:27 06:15 06:15 WBC 13.5 H RBC 2.97 L Hgb 8.2 L Hct 24.8 L MCV 83.5 MCH 27.6 MCHC 33.1 RDW 15.4 Plt Count 650 H MPV 8.1 Absolute Neuts (auto) 10.5 Neutrophils % 77.3 Lymphocytes % 10.8 D Monocytes % 8.7 Eosinophils % 2.2 Basophils % 1.0 Nucleated RBC % 0 Sodium 136 Potassium 4.5 Chloride 97 L Carbon Dioxide 27 Anion Gap 12 BUN 76 H D Creatinine 3.9 H D Creat Clearance w eGFR 15.41 POC Glucometer 261 Random Glucose 248 H D Calcium 8.4 L Total Bilirubin 0.2 AST 30 D ALT 40 Alkaline Phosphatase 127 H Total Protein 6.8 Albumin 2.3 L Active Medications Generic Name Dose Route Start Last Admin Trade Name Freq PRN Reason Stop Dose Admin Acetaminophen 650 mg 09/24/17 14:06 09/25/17 03:27 Tylenol - PO 650 mg Q4H PRN Administration FEVER Amlodipine Besylate 10 mg 09/25/17 10:00 Norvasc - PO DAILY ELENA Aspirin 81 mg 09/25/17 10:00 Ecotrin - PO DAILY ELENA Atorvastatin Calcium 10 mg 09/24/17 22:00 09/24/17 21:20 Lipitor - PO 10 mg HS ELENA Administration Bisacodyl 10 mg 09/24/17 14:06 Dulcolax Suppository - RC DAILY PRN CONSTIPATION Brimonidine Tartrate 1 drop 09/24/17 22:00 09/25/17 05:40 Alphagan P 0.1% - OU 1 drop TID ELENA Administration Chlorthalidone 100 mg 09/25/17 10:00 Hygroton - PO DAILY [facility] Clopidogrel Bisulfate 75 mg 09/25/17 10:00 Plavix - PO DAILY ELENA Collagenase 1 applic 09/25/17 10:00 Santyl - TP DAILY [facility] Docusate Sodium 200 mg 09/25/17 10:00 Colace - PO DAILY [facility] Ethacrynic Acid 75 mg 09/24/17 22:00 09/24/17 21:25 Edecrin - PO 75 mg BID [facility] Administration Ferrous Sulfate 325 mg 09/25/17 08:00 Feosol - PO DAILY@0800 [facility] Folic Acid 1 mg 09/25/17 10:00 Folic Acid - PO DAILY [facility] Gabapentin 600 mg 09/24/17 22:00 09/25/17 06:01 Neurontin - PO 600 mg TID [facility] Administration Hydralazine HCl 75 mg 09/24/17 22:00 09/25/17 06:01 Apresoline - PO 75 mg TID [facility] Administration Clindamycin Phosphate 300 mg/ 50 mls @ 104 mls/hr 09/24/17 15:45 09/25/17 01: 01 Dextrose IVPB 104 mls/hr Q8H-IV [facility] Administration Protocol Insulin Aspart 1 vial 09/24/17 16:30 09/25/17 06:48 Novolog Vial Sliding Scale - SQ 6 units TIDAC [facility] Administration Protocol Insulin Detemir 95 units 09/25/17 07:00 09/25/17 06:48 Levemir Vial SQ 95 unit AM [facility] Administration Lactic Acid 1 applic 09/24/17 14:06 Lac-Hydrin 12 TP BID PRN xerosis Metoprolol Tartrate 25 mg 09/24/17 22:00 09/24/17 21:20 Lopressor - PO 25 mg BID [facility] Administration Non-Formulary Medication 1 drop 09/24/17 22:00 Brinzolamide [Azopt] OU TID [facility] Nystatin 1 applic 09/25/17 10:00 Nystop Powder - TP DAILY [facility] Ofloxacin 1 drop 09/24/17 22:00 09/25/17 05:41 Ocuflox 0.3% Eye Drops - OU 1 drop TID [facility] Administration Ondansetron HCl 4 mg 09/24/17 14:06 Zofran Injection IVPUSH Q8H PRN NAUSEA Oxycodone HCl 5 mg 09/25/17 09:16 Roxicodone - PO Q6H PRN PAIN LEVEL 1-5 Polyethylene Glycol 17 gm 09/24/17 22:00 09/24/17 21:33 Miralax (For Daily Use) - PO 17 gm BID [facility] Administration Ranitidine HCl 150 mg 09/25/17 10:00 Zantac - PO DAILY [facility] Sodium Polystyrene Sulfonate 30 gm 09/25/17 09:30 Kayexalate - PO 09/25/17 09:31 ONCE ONE Imaging: - Renal ultrasound: morphologically normal kidneys with no evidence of hydronephrosis or acute pathology Assessment: 67 year old male with PMHx of HTN, DM, hyperlipidemia, obesity, sleep apnea, CKD, s/p RCA stent 05/30/10, s/p TAVR on 07/04/13, wheelchair bound, cardiac cath 06/17/13, who is s/p C2-T12 laminectomy and C7-T1 osteotomies, deformity correction and C2-T2 posterior fusion on 09/11. Plan: 1. CKD - No access at this time, permacath placement per vascular and renal - Maintain zimmerman, with mild outpt - Continue chlorthalidone 2. Fever - Resolved, wbc improved today - Maintain clindamycin 300mg tid x 10 days (day 2) - ID seeing 3. S/p C2-T12 laminectomy and C7-T1 osteotomies, deformity correction and C2-T2 posterior fusion on 09/11 - C-collar in place (continue 23/24 hours a day) - Pain management - Neuro surgery seeing 4. Left big toe wound - Staph aureus from wound culture - Ammonia lactate bid - Santyl daily to left big toe - Heel pads bilaterally 5. CAD - Continue ASA - Continue Plavix 6. HTN - Continue Norvasc - Continue Hydralazine 7. DM II - BGM, ISS ACHS - Continue Levemir 95u sq AM 8. Sleep apnea - Bipap 9. Prophylaxis: - Chemical DVT prophylaxis per surgery 10. Constipation/rectal pain - Lactulose, mineral enema x1 today - Continue miralax, dulcolax [place] Visit type - Emergency Visit Emergency Visit: Yes ED Registration Date: 09/11/17 Care time: The patient presented to the Emergency Department on the above date and was hospitalized for further evaluation of their emergent condition. - New Patient This patient is new to me today: Yes Date on this admission: 09/25/17 - Critical Care Critical Care patient: No
[2017-09-25] MEDS ORDERED: SODIUM POLYSTYRENE SULFONATE 15 GM/60 ML BOTTLE PO ONE (09:30)
[2017-09-25] MEDS ORDERED: PT OWN MED DRAWER 7, Y5N ONE ×2 (09:38→16:55)
[2017-09-25] MEDS: ASPIRIN COATED 81 MG TABLET.EC PO SCH (09:49)
[2017-09-25] MEDS: FERROUS SO4 325 MG TABLET (FP) PO SCH (09:49)
[2017-09-25] MEDS: RANITIDINE HCL 150 MG TABLET (FP) PO SCH (09:49)
[2017-09-25] MEDS: oxyCODONE HCL 5 MG TABLET PO PRN ×2 (09:50→21:43)
[2017-09-25] MEDS: FOLIC ACID 1 MG TABLET (FP) PO SCH (09:50)
[2017-09-25] MEDS: CHLORTHALIDONE 25 MG TABLET PO SCH (09:50)
[2017-09-25] MEDS: METOPROLOL TARTRATE 25 MG TABLET (FP) PO SCH ×2 (09:50→21:36)
[2017-09-25] MEDS: amLODIPine BESYLATE 10 MG TABLET (FP) PO SCH (09:50)
[2017-09-25] MEDS: CLOPIDOGREL BISULFATE 75 MG TABLET (FP) PO SCH (09:50)
[2017-09-25] MEDS: ETHACRYNIC ACID 25 MG TABLET PO SCH ×2 (09:52→21:38)
[2017-09-25] MEDS ORDERED: LACTULOSE 20 GM/30 ML UDC (FOR ORAL USE ONLY) PO ONE (10:00)
[2017-09-25] MEDS: COLLAGENASE CLOSTRIDIUM HIST. 30 GRAMS TUBE TP SCH (10:02)
[2017-09-25] MEDS: NYSTATIN POWDER 100,000 UNITS/GM - 15 GM TOPICAL POWDER TP SCH (10:02)
[2017-09-25 10:53] LABS: ACANTHOCYTES 0; ANISOCYTOSIS 0; HELMET CELLS 0; HOWELL-JOLLY BODIES 0; MACROCYTOSIS 0; OVALOCYTE 0; PLATELET ESTIMATE INCREASED; ROULEAU 0; SICKELED CELLS 0; TARGET CELLS 0; TEAR DROP CELLS 0; TOXIC GRANULATION 0
--- NOTE | 2017-09-25 11:45 | PN ---
Progress Note (short form) - Note Progress Note: NAD on 5 L NC O2. NIPPV support intermittently being used overnight. No CP. Breathing improving. Intake & Output 09/22/17 09/23/17 09/24/17 09/25/17 23:59 23:59 23:59 23:59 Intake Total 580 320 770 300 Output Total 1050 1700 400 500 Balance -470 -1380 370 -200 Weight 279 lb 9.6 oz 278 lb 6.4 oz 259 lb 4 oz 255 lb 5 oz Last Vital Signs Temp Pulse Resp BP Pulse Ox 98.1 F 57 L 18 136/57 97 09/25/17 09:45 09/25/17 09:45 09/25/17 09:45 09/25/17 09:45 09/24/17 21:00 Active Medications Acetaminophen (Tylenol -) 650 mg PO Q4H PRN PRN Reason: FEVER Last Admin: 09/25/17 03:27 Dose: 650 mg Amlodipine Besylate (Norvasc -) 10 mg PO DAILY [facility] Last Admin: 09/25/17 09:50 Dose: 10 mg Aspirin (Ecotrin -) 81 mg PO DAILY [facility] Last Admin: 09/25/17 09:49 Dose: 81 mg Atorvastatin Calcium (Lipitor -) 10 mg PO HS [facility] Last Admin: 09/24/17 21:20 Dose: 10 mg Bisacodyl (Dulcolax Suppository -) 10 mg RC DAILY PRN PRN Reason: CONSTIPATION Brimonidine Tartrate (Alphagan P 0.1% -) 1 drop OU TID [facility] Last Admin: 09/25/17 05:40 Dose: 1 drop Chlorthalidone (Hygroton -) 100 mg PO DAILY [facility] Last Admin: 09/25/17 09:50 Dose: 100 mg Clopidogrel Bisulfate (Plavix -) 75 mg PO DAILY [facility] Last Admin: 09/25/17 09:50 Dose: 75 mg Collagenase (Santyl -) 1 applic TP DAILY [facility] Last Admin: 09/25/17 10:02 Dose: 1 applic Docusate Sodium (Colace -) 200 mg PO DAILY [facility] Ethacrynic Acid (Edecrin -) 75 mg PO BID [facility] Last Admin: 09/25/17 09:52 Dose: 75 mg Ferrous Sulfate (Feosol -) 325 mg PO DAILY@0800 [facility] Last Admin: 09/25/17 09:49 Dose: 325 mg Folic Acid (Folic Acid -) 1 mg PO DAILY [facility] Last Admin: 09/25/17 09:50 Dose: 1 mg Gabapentin (Neurontin -) 600 mg PO TID [facility] Last Admin: 09/25/17 06:01 Dose: 600 mg Hydralazine HCl (Apresoline -) 75 mg PO TID [facility] Last Admin: 09/25/17 06:01 Dose: 75 mg Clindamycin Phosphate 300 mg/ (Dextrose) 50 mls @ 104 mls/hr IVPB Q8H-IV [facility]; Protocol Last Admin: 09/25/17 09:52 Dose: 104 mls/hr Insulin Aspart (Novolog Vial Sliding Scale -) 1 vial SQ TIDAC [facility]; Protocol Last Admin: 09/25/17 06:48 Dose: 6 units Insulin Detemir (Levemir Vial) 95 units SQ AM [facility] Last Admin: 09/25/17 06:48 Dose: 95 unit Lactic Acid (Lac-Hydrin 12) 1 applic TP BID PRN PRN Reason: xerosis Last Admin: 09/25/17 10:03 Dose: 1 applic Metoprolol Tartrate (Lopressor -) 25 mg PO BID [facility] Last Admin: 09/25/17 09:50 Dose: 25 mg Non-Formulary Medication (Brinzolamide [Azopt]) 1 drop OU TID [facility] Nystatin (Nystop Powder -) 1 applic TP DAILY [facility] Last Admin: 09/25/17 10:02 Dose: 1 applic Ofloxacin (Ocuflox 0.3% Eye Drops -) 1 drop OU TID [facility] Last Admin: 09/25/17 05:41 Dose: 1 drop Ondansetron HCl (Zofran Injection) 4 mg IVPUSH Q8H PRN PRN Reason: NAUSEA Oxycodone HCl (Roxicodone -) 5 mg PO Q6H PRN PRN Reason: PAIN LEVEL 1-5 Last Admin: 09/25/17 09:50 Dose: 5 mg Polyethylene Glycol (Miralax (For Daily Use) -) 17 gm PO BID [facility] Last Admin: 09/24/17 21:33 Dose: 17 gm Ranitidine HCl (Zantac -) 150 mg PO DAILY [facility] Last Admin: 09/25/17 09:49 Dose: 150 mg Constitutional: Yes: Mildly tachypneic at rest, Obese Eyes: Yes: WNL HENT: Yes: WNL Neck: Yes: brace Cardiovascular: Yes: Regular Rate and Rhythm, S1, S2 Respiratory: Yes: Diminished Gastrointestinal: Yes: Normal Bowel Sounds, Soft Extremities: Yes: WNL Edema: Yes Labs: Laboratory Results - last 24 hr 09/24/17 09/24/17 09/24/17 12:04 17:00 20:27 WBC RBC Hgb Hct MCV MCH MCHC RDW Plt Count MPV Absolute Neuts (auto) Neutrophils % Neutrophils % (Manual) Band Neutrophils % Lymphocytes % Lymphocytes % (Manual) Monocytes % Monocytes % (Manual) Eosinophils % Eosinophils % (Manual) Basophils % Basophils % (Manual) Myelocytes % (Man) Promyelocytes % (Man) Blast Cells % (Manual) Nucleated RBC % Metamyelocytes Hypochromia Toxic Granulation Dohle Bodies Platelet Estimate Polychromasia Poikilocytosis Basophilic Stippling Anisocytosis Microcytosis Macrocytosis Spherocytes Sickle Cells Target Cells Tear Drop Cells Ovalocytes Stomatocytes Helmet Cells Saul-Velma Bodies [place] Cells Acanthocytes (Spur) Rouleaux Fragmented RBCs Schistocytes Sodium Potassium Chloride Carbon Dioxide Anion Gap BUN Creatinine Creat Clearance w eGFR POC Glucometer 240 189 268 Random Glucose Calcium Total Bilirubin AST ALT Alkaline Phosphatase Total Protein Albumin 09/25/17 09/25/17 09/25/17 05:27 06:15 06:15 WBC 13.5 H RBC 2.97 L Hgb 8.2 L Hct 24.8 L MCV 83.5 MCH 27.6 MCHC 33.1 RDW 15.4 Plt Count 650 H MPV 8.1 Absolute Neuts (auto) 10.5 Neutrophils % 77.3 Neutrophils % (Manual) 82.5 Band Neutrophils % 0.0 Lymphocytes % 10.8 D Lymphocytes % (Manual) 9.3 D Monocytes % 8.7 Monocytes % (Manual) 6 D Eosinophils % 2.2 Eosinophils % (Manual) 1.0 Basophils % 1.0 Basophils % (Manual) 0.0 Myelocytes % (Man) 1 D Promyelocytes % (Man) 0 D Blast Cells % (Manual) 0 Nucleated RBC % 0 Metamyelocytes 0 D Hypochromia 0 Toxic Granulation 0 Dohle Bodies 0 Platelet Estimate Increased Polychromasia 0 Poikilocytosis 0 Basophilic Stippling 0 Anisocytosis 0 Microcytosis 0 Macrocytosis 0 Spherocytes 0 Sickle Cells 0 Target Cells 0 Tear Drop Cells 0 Ovalocytes 0 Stomatocytes 0 Helmet Cells 0 Saul-Velma Bodies 0 [place] 0 [place] Cells 0 Acanthocytes (Spur) 0 Rouleaux 0 Fragmented RBCs 0 Schistocytes 0 Sodium 136 Potassium 4.5 Chloride 97 L Carbon Dioxide 27 Anion Gap 12 BUN 76 H D Creatinine 3.9 H D Creat Clearance w eGFR 15.41 POC Glucometer 261 Random Glucose 248 H D Calcium 8.4 L Total Bilirubin 0.2 AST 30 D ALT 40 Alkaline Phosphatase 127 H Total Protein 6.8 Albumin 2.3 L Problem List - Problems (1) Dyspnea Code(s): R06.00 - DYSPNEA, UNSPECIFIED (2) Back pain Code(s): M54.9 - DORSALGIA, UNSPECIFIED (3) CHF (congestive heart failure) Code(s): I50.9 - HEART FAILURE, UNSPECIFIED (4) Cervical myelopathy Code(s): G95.9 - DISEASE OF SPINAL CORD, UNSPECIFIED (5) HTN (hypertension) Code(s): I10 - ESSENTIAL (PRIMARY) HYPERTENSION (6) DOMINIK (obstructive sleep apnea) Code(s): G47.33 - OBSTRUCTIVE SLEEP APNEA (ADULT) (PEDIATRIC) (7) S/P TAVR (transcatheter aortic valve replacement) Code(s): Z95.2 - PRESENCE OF PROSTHETIC HEART VALVE (8) Acute on chronic kidney failure Code(s): N17.9 - ACUTE KIDNEY FAILURE, UNSPECIFIED; N18.9 - CHRONIC KIDNEY DISEASE, UNSPECIFIED (9) Diabetes Code(s): E11.9 - TYPE 2 DIABETES MELLITUS WITHOUT COMPLICATIONS Assessment/Plan Cervical Spinal Stenosis s/p C2-T2 Laminectomies/Posterior Fusions Respiratory distress DYSPNEA VOLUME OVERLOAD CAD Aortic Stenosis s/p AVR HTN DM CKD DOMINIK ANEMIA Toe Ulcer - NIPPV QHS and PRN / Wean FiO2 as tolerated - HD as per renal - diuretics as tolerated - pain control - incentive spirometry - monitor urine output, creatinine - rehab/PT - monitor lytes - DVT prophylaxis - ABX per ID Dr Ortez
[2017-09-25] MEDS: DOCUSATE SODIUM 100 MG CAPSULE (FP) PO SCH (11:55)
[2017-09-25] MEDS: POLYETHYLENE GLYCOL 3350 119 GM BTL PO SCH ×2 (11:55→21:39)
--- NOTE | 2017-09-25 12:12 | PN ---
Progress Note (short form) - Note Progress Note: FUV left big toe. Patient sleeping today. wbc=13.5, +eschar, -cellulitis, -drainage, grade 1 ulceration Heel pads b/l. continue Santyl daily to left big toe. Ammonium lactate BID to exposed lower extremities. Will follow.
--- NOTE | 2017-09-25 14:08 | PN ---
Progress Note, Physician History of Present Illness: stable doing well no new issues - Current Medication List Current Medications: Active Medications Acetaminophen (Tylenol -) 650 mg PO Q4H PRN PRN Reason: FEVER Last Admin: 09/25/17 03:27 Dose: 650 mg Amlodipine Besylate (Norvasc -) 10 mg PO DAILY [facility] Last Admin: 09/25/17 09:50 Dose: 10 mg Aspirin (Ecotrin -) 81 mg PO DAILY [facility] Last Admin: 09/25/17 09:49 Dose: 81 mg Atorvastatin Calcium (Lipitor -) 10 mg PO HS [facility] Last Admin: 09/24/17 21:20 Dose: 10 mg Bisacodyl (Dulcolax Suppository -) 10 mg RC DAILY PRN PRN Reason: CONSTIPATION Brimonidine Tartrate (Alphagan P 0.1% -) 1 drop OU TID [facility] Last Admin: 09/25/17 05:40 Dose: 1 drop Chlorthalidone (Hygroton -) 100 mg PO DAILY [facility] Last Admin: 09/25/17 09:50 Dose: 100 mg Clopidogrel Bisulfate (Plavix -) 75 mg PO DAILY [facility] Last Admin: 09/25/17 09:50 Dose: 75 mg Collagenase (Santyl -) 1 applic TP DAILY [facility] Last Admin: 09/25/17 10:02 Dose: 1 applic Docusate Sodium (Colace -) 200 mg PO DAILY [facility] Last Admin: 09/25/17 11:55 Dose: 200 mg Ethacrynic Acid (Edecrin -) 75 mg PO BID [facility] Last Admin: 09/25/17 09:52 Dose: 75 mg Ferrous Sulfate (Feosol -) 325 mg PO DAILY@0800 [facility] Last Admin: 09/25/17 09:49 Dose: 325 mg Folic Acid (Folic Acid -) 1 mg PO DAILY [facility] Last Admin: 09/25/17 09:50 Dose: 1 mg Gabapentin (Neurontin -) 600 mg PO TID [facility] Last Admin: 09/25/17 06:01 Dose: 600 mg Hydralazine HCl (Apresoline -) 75 mg PO TID [facility] Last Admin: 09/25/17 06:01 Dose: 75 mg Clindamycin Phosphate 300 mg/ (Dextrose) 50 mls @ 104 mls/hr IVPB Q8H-IV [facility]; Protocol Last Admin: 09/25/17 09:52 Dose: 104 mls/hr Insulin Aspart (Novolog Vial Sliding Scale -) 1 vial SQ TIDAC [facility]; Protocol Last Admin: 09/25/17 11:56 Dose: 6 units Insulin Detemir (Levemir Vial) 95 units SQ AM [facility] Last Admin: 09/25/17 06:48 Dose: 95 unit Lactic Acid (Lac-Hydrin 12) 1 applic TP BID PRN PRN Reason: xerosis Last Admin: 09/25/17 10:03 Dose: 1 applic Metoprolol Tartrate (Lopressor -) 25 mg PO BID [facility] Last Admin: 09/25/17 09:50 Dose: 25 mg Non-Formulary Medication (Brinzolamide [Azopt]) 1 drop OU TID [facility] Nystatin (Nystop Powder -) 1 applic TP DAILY [facility] Last Admin: 09/25/17 10:02 Dose: 1 applic Ofloxacin (Ocuflox 0.3% Eye Drops -) 1 drop OU TID [facility] Last Admin: 09/25/17 05:41 Dose: 1 drop Ondansetron HCl (Zofran Injection) 4 mg IVPUSH Q8H PRN PRN Reason: NAUSEA Oxycodone HCl (Roxicodone -) 5 mg PO Q6H PRN PRN Reason: PAIN LEVEL 1-5 Last Admin: 09/25/17 09:50 Dose: 5 mg Polyethylene Glycol (Miralax (For Daily Use) -) 17 gm PO BID [facility] Last Admin: 09/25/17 11:55 Dose: 17 gm Ranitidine HCl (Zantac -) 150 mg PO DAILY [facility] Last Admin: 09/25/17 09:49 Dose: 150 mg - Objective Vital Signs: Vital Signs Temperature 98.1 F 09/25/17 09:45 Pulse Rate 57 L 09/25/17 09:45 Respiratory Rate 18 09/25/17 09:45 Blood Pressure 136/57 09/25/17 09:45 O2 Sat by Pulse Oximetry (%) 97 09/24/17 21:00 Constitutional: Yes: No Distress, Calm Cardiovascular: Yes: Regular Rate and Rhythm Respiratory: Yes: Regular, CTA Bilaterally, Other (neck hard collar) Gastrointestinal: Yes: Normal Bowel Sounds, Soft Musculoskeletal: Yes: Other Extremities: Yes: Other Wound/Incision: Yes: Clean/Dry, Other Neurological: Yes: Alert, Oriented Labs: CBC, BMP 09/25/17 06:15 09/25/17 06:15 INR, PTT INR 1.35 (0.82-1.09) H D 09/21/17 05:40 Assessment/Plan 67 yo male s/p exploration of spinal fusion, C2-T2 laminectomies and C7-T1 osteotomies, deformity correction and C2-T2 posterior fusion. r/o uti numbness leukocytosis Cervical Spinal Stenosis s/p C2-T2 Laminectomies/Posterior Fusions CAD Aortic Stenosis s/p AVR HTN DM CKD DOMINIK Toe Ulcer fever plan continue oral abx for 5 days more rest as per the primary team
--- NOTE | 2017-09-25 15:03 | PN ---
Progress Note, Physician History of Present Illness: Pt seen and examined at bedside. He is awake and feels that his breathing is comfortable with the oxygen. - Current Medication List Current Medications: Active Medications Acetaminophen (Tylenol -) 650 mg PO Q4H PRN PRN Reason: FEVER Last Admin: 09/25/17 03:27 Dose: 650 mg Amlodipine Besylate (Norvasc -) 10 mg PO DAILY [facility] Last Admin: 09/25/17 09:50 Dose: 10 mg Aspirin (Ecotrin -) 81 mg PO DAILY [facility] Last Admin: 09/25/17 09:49 Dose: 81 mg Atorvastatin Calcium (Lipitor -) 10 mg PO HS [facility] Last Admin: 09/24/17 21:20 Dose: 10 mg Bisacodyl (Dulcolax Suppository -) 10 mg RC DAILY PRN PRN Reason: CONSTIPATION Brimonidine Tartrate (Alphagan P 0.1% -) 1 drop OU TID [facility] Last Admin: 09/25/17 14:36 Dose: 1 drop Chlorthalidone (Hygroton -) 100 mg PO DAILY [facility] Last Admin: 09/25/17 09:50 Dose: 100 mg Clopidogrel Bisulfate (Plavix -) 75 mg PO DAILY [facility] Last Admin: 09/25/17 09:50 Dose: 75 mg Collagenase (Santyl -) 1 applic TP DAILY [facility] Last Admin: 09/25/17 10:02 Dose: 1 applic Docusate Sodium (Colace -) 200 mg PO DAILY [facility] Last Admin: 09/25/17 11:55 Dose: 200 mg Ethacrynic Acid (Edecrin -) 75 mg PO BID [facility] Last Admin: 09/25/17 09:52 Dose: 75 mg Ferrous Sulfate (Feosol -) 325 mg PO DAILY@0800 [facility] Last Admin: 09/25/17 09:49 Dose: 325 mg Folic Acid (Folic Acid -) 1 mg PO DAILY [facility] Last Admin: 09/25/17 09:50 Dose: 1 mg Gabapentin (Neurontin -) 600 mg PO TID [facility] Last Admin: 09/25/17 14:35 Dose: 600 mg Hydralazine HCl (Apresoline -) 75 mg PO TID [facility] Last Admin: 09/25/17 14:36 Dose: 75 mg Clindamycin Phosphate 300 mg/ (Dextrose) 50 mls @ 104 mls/hr IVPB Q8H-IV [facility]; Protocol Last Admin: 09/25/17 09:52 Dose: 104 mls/hr Insulin Aspart (Novolog Vial Sliding Scale -) 1 vial SQ TIDAC [facility]; Protocol Last Admin: 09/25/17 11:56 Dose: 6 units Insulin Detemir (Levemir Vial) 95 units SQ AM [facility] Last Admin: 09/25/17 06:48 Dose: 95 unit Lactic Acid (Lac-Hydrin 12) 1 applic TP BID PRN PRN Reason: xerosis Last Admin: 09/25/17 10:03 Dose: 1 applic Metoprolol Tartrate (Lopressor -) 25 mg PO BID [facility] Last Admin: 09/25/17 09:50 Dose: 25 mg Non-Formulary Medication (Brinzolamide [Azopt]) 1 drop OU TID [facility] Nystatin (Nystop Powder -) 1 applic TP DAILY [facility] Last Admin: 09/25/17 10:02 Dose: 1 applic Ofloxacin (Ocuflox 0.3% Eye Drops -) 1 drop OU TID [facility] Last Admin: 09/25/17 14:37 Dose: 1 drop Ondansetron HCl (Zofran Injection) 4 mg IVPUSH Q8H PRN PRN Reason: NAUSEA Oxycodone HCl (Roxicodone -) 5 mg PO Q6H PRN PRN Reason: PAIN LEVEL 1-5 Last Admin: 09/25/17 09:50 Dose: 5 mg Polyethylene Glycol (Miralax (For Daily Use) -) 17 gm PO BID [facility] Last Admin: 09/25/17 11:55 Dose: 17 gm Ranitidine HCl (Zantac -) 150 mg PO DAILY [facility] Last Admin: 09/25/17 09:49 Dose: 150 mg - Objective Vital Signs: Vital Signs Temperature 98.1 F 09/25/17 09:45 Pulse Rate 57 L 09/25/17 09:45 Respiratory Rate 18 09/25/17 09:45 Blood Pressure 136/57 09/25/17 09:45 O2 Sat by Pulse Oximetry (%) 97 09/24/17 21:00 Constitutional: Yes: Calm Eyes: Yes: Conjunctiva Clear HENT: Yes: Atraumatic Cardiovascular: Yes: S1, S2 Respiratory: Yes: On Nasal O2 Gastrointestinal: Yes: Soft, Abdomen, Obese Genitourinary: Yes: Joshua Present Musculoskeletal: Yes: Muscle Weakness Edema: Yes Edema: LUE: 1+, RUE: 1+, LLE: Trace, RLE: Trace Neurological: Yes: Oriented Psychiatric: Yes: Oriented Labs: CBC, BMP 09/25/17 06:15 09/25/17 06:15 INR, PTT INR 1.35 (0.82-1.09) H D 09/21/17 05:40 Problem List - Problems (1) Acute on chronic kidney failure Code(s): N17.9 - ACUTE KIDNEY FAILURE, UNSPECIFIED; N18.9 - CHRONIC KIDNEY DISEASE, UNSPECIFIED (2) CHF (congestive heart failure) Code(s): I50.9 - HEART FAILURE, UNSPECIFIED (3) Diabetes Code(s): E11.9 - TYPE 2 DIABETES MELLITUS WITHOUT COMPLICATIONS (4) HTN (hypertension) Code(s): I10 - ESSENTIAL (PRIMARY) HYPERTENSION Assessment/Plan Current Medications Generic Name Dose Route Start Last Admin Trade Name Freq PRN Reason Stop Dose Admin Acetaminophen 650 mg 09/24/17 14:06 09/25/17 03:27 Tylenol - PO 650 mg Q4H PRN Administration FEVER Amlodipine Besylate 10 mg 09/25/17 10:00 09/25/17 09:50 Norvasc - PO 10 mg DAILY [facility] Administration Aspirin 81 mg 09/25/17 10:00 09/25/17 09:49 Ecotrin - PO 81 mg DAILY [facility] Administration Atorvastatin Calcium 10 mg 09/24/17 22:00 09/24/17 21:20 Lipitor - PO 10 mg HS [facility] Administration Bisacodyl 10 mg 09/24/17 14:06 Dulcolax Suppository - RC DAILY PRN CONSTIPATION Brimonidine Tartrate 1 drop 09/24/17 22:00 09/25/17 14:36 Alphagan P 0.1% - OU 1 drop TID [facility] Administration Chlorthalidone 100 mg 09/25/17 10:00 09/25/17 09:50 Hygroton - PO 100 mg DAILY [facility] Administration Clopidogrel Bisulfate 75 mg 09/25/17 10:00 09/25/17 09:50 Plavix - PO 75 mg DAILY [facility] Administration Collagenase 1 applic 09/25/17 10:00 09/25/17 10:02 Santyl - TP 1 applic DAILY [facility] Administration Docusate Sodium 200 mg 09/25/17 10:00 09/25/17 11:55 Colace - PO 200 mg DAILY [facility] Administration Ethacrynic Acid 75 mg 09/24/17 22:00 09/25/17 09:52 Edecrin - PO 75 mg BID [facility] Administration Ferrous Sulfate 325 mg 09/25/17 08:00 09/25/17 09:49 Feosol - PO 325 mg DAILY@0800 [facility] Administration Folic Acid 1 mg 09/25/17 10:00 09/25/17 09:50 Folic Acid - PO 1 mg DAILY [facility] Administration Gabapentin 600 mg 09/24/17 22:00 09/25/17 14:35 Neurontin - PO 600 mg TID [facility] Administration Hydralazine HCl 75 mg 09/24/17 22:00 09/25/17 14:36 Apresoline - PO 75 mg TID [facility] Administration Clindamycin Phosphate 300 mg/ 50 mls @ 104 mls/hr 09/24/17 15:45 09/25/17 09: 52 Dextrose IVPB 104 mls/hr Q8H-IV [facility] Administration Protocol Insulin Aspart 1 vial 09/24/17 16:30 09/25/17 11:56 Novolog Vial Sliding Scale - SQ 6 units TIDAC [facility] Administration Protocol Insulin Detemir 95 units 09/25/17 07:00 09/25/17 06:48 Levemir Vial SQ 95 unit AM [facility] Administration Lactic Acid 1 applic 09/24/17 14:06 09/25/17 10:03 Lac-Hydrin 12 TP 1 applic BID PRN Administration xerosis Metoprolol Tartrate 25 mg 09/24/17 22:00 09/25/17 09:50 Lopressor - PO 25 mg BID [facility] Administration Non-Formulary Medication 1 drop 09/24/17 22:00 Brinzolamide [Azopt] OU TID [facility] Nystatin 1 applic 09/25/17 10:00 09/25/17 10:02 Nystop Powder - TP 1 applic DAILY [facility] Administration Ofloxacin 1 drop 09/24/17 22:00 09/25/17 14:37 Ocuflox 0.3% Eye Drops - OU 1 drop TID [facility] Administration Ondansetron HCl 4 mg 09/24/17 14:06 Zofran Injection IVPUSH Q8H PRN NAUSEA Oxycodone HCl 5 mg 09/25/17 09:16 09/25/17 09:50 Roxicodone - PO 5 mg Q6H PRN Administration PAIN LEVEL 1-5 Polyethylene Glycol 17 gm 09/24/17 22:00 09/25/17 11:55 Miralax (For Daily Use) - PO 17 gm BID [facility] Administration Ranitidine HCl 150 mg 09/25/17 10:00 09/25/17 09:49 Zantac - PO 150 mg DAILY [facility] Administration Impression 1. CKD 2. DM 3. cervical spine disease 4. HTN 5. CHF 6. obesity 7. anemia 8. DOMINIK 9. HLD 10. volume overload 11. s/p c2 to t2 decompression and fusion Plan - vascular for permacath - account liaison hospice went from 3 to 3.9 overnight - monitor urine ouput - repeat labs in am - volume status is improved - neuro-surg follow up - cont bipap as needed, pt has been on nasal canula - will follow
--- NOTE | 2017-09-25 15:03 | PN ---
Progress Note (short form) - Note Progress Note: 67yo M h/o CKD with worsening renal function. Pt seen at bedside complaining of constipation, states he was given miralax to drink. Pt denies n/v, fever, chills. Last Vital Signs Temp Pulse Resp BP Pulse Ox 98.1 F 57 L 18 136/57 97 09/25/17 09:45 09/25/17 09:45 09/25/17 09:45 09/25/17 09:45 09/24/17 21:00 CBC, BMP 09/25/17 06:15 09/25/17 06:15 PE Gen: A&O x 3 Resp: breathing comfortably Heart: regular rate and rhythm Neck: C-collar in place, posterior neck dressing in place clean no erythema. 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 Ibrahim who agrees with plan Code(s): N17.9 - ACUTE KIDNEY FAILURE, UNSPECIFIED; N18.9 - CHRONIC KIDNEY DISEASE, UNSPECIFIED
--- NOTE | 2017-09-25 15:09 | SPA.PREOP ---
- PRE-OP NOTE Dx: ESRD Planned Procedure: Permacath placement Surgeon: Giovanny Ibrahim MD Consent: Will be obtained after surgeon explained all risks, benefits and alternatives. Opportunity for questions. Last Vital Signs Temp Pulse Resp BP Pulse Ox 98.1 F 57 L 18 136/57 97 09/25/17 09:45 09/25/17 09:45 09/25/17 09:45 09/25/17 09:45 09/24/17 21:00 Lab Results WBC 13.5 K/mm3 (4.0-10.0) H 09/25/17 06:15 RBC 2.97 M/mm3 (4.00-5.60) L 09/25/17 06:15 Hgb 8.2 GM/dL (11.7-16.9) L 09/25/17 06:15 Hct 24.8 % (35.4-49) L 09/25/17 06:15 MCV 83.5 fl (80-96) 09/25/17 06:15 MCHC 33.1 g/dl (32.0-35.9) 09/25/17 06:15 RDW 15.4 % (11.9-15.9) 09/25/17 06:15 Plt Count 650 K/MM3 (134-434) H 09/25/17 06:15 Sodium 136 mmol/L (136-145) 09/25/17 06:15 Potassium 4.5 mmol/L (3.5-5.1) 09/25/17 06:15 Chloride 97 mmol/L (98-107) L 09/25/17 06:15 Carbon Dioxide 27 mmol/L (21-32) 09/25/17 06:15 Anion Gap 12 (8-16) 09/25/17 06:15 BUN 76 mg/dL (7-18) H D 09/25/17 06:15 Creatinine 3.9 mg/dL (0.7-1.3) H D 09/25/17 06:15 Random Glucose 248 mg/dL (74-106) H D 09/25/17 06:15 Calcium 8.4 mg/dL (8.5-10.1) L 09/25/17 06:15 Blood Type AB POSITIVE 09/11/17 11:46 Antibody Screen Negative 09/11/17 11:46 INR 1.35 (0.82-1.09) H D 09/21/17 05:40 - ASSESSMENT/PLAN 1. Make NPO after midnight except po meds 2. GI/DVT PPX 3. Medical optimization / clearance Problem List - Problems (1) Acute on chronic kidney failure Code(s): N17.9 - ACUTE KIDNEY FAILURE, UNSPECIFIED; N18.9 - CHRONIC KIDNEY DISEASE, UNSPECIFIED
[2017-09-25] MEDS: ATORVASTATIN CA 10 MG TABLET (FP) PO SCH (21:37)
[2017-09-26] MEDS: CLINDAMYCIN 300 MG PREMIX IVPB 300 MG/50 ML BAG IVPB SCH ×2 (01:07→10:05)
[2017-09-26] MEDS: hydrALAZINE HCL 25 MG TABLET (FP) PO SCH ×3 (06:39→21:45)
[2017-09-26] MEDS: BRIMONIDINE TARTRATE 0.1% OPHTHALMIC 5 ML BOTTLE OU SCH ×3 (06:39→21:47)
[2017-09-26] MEDS: OFLOXACIN 0.3% OPHTHALMIC SOLUTION 5 ML BOTTLE OU SCH ×3 (06:39→21:53)
[2017-09-26] MEDS: GABAPENTIN 300 MG CAPSULE (FP) PO SCH ×3 (06:39→21:44)
[2017-09-26] MEDS: INSULIN SLIDING SCALE (NOVOLOG) 1 VIAL SQ SCH (06:40)
[2017-09-26] MEDS: INSULIN (LEVEMIR) 100 UNITS/ML UNITS SQ SCH (06:40)
[2017-09-26 08:46] LABS: BASO % 0.8 % (0-2.0); EOS % 3.2 % (0-4.5); HEMATOCRIT 25.2 % (35.4-49); HEMOGLOBIN 8.1 GM/dL (11.7-16.9); LYMPH % 9.7 % (8-40); MCH 26.6 pg (25.7-33.7); MCHC 32.1 g/dl (32.0-35.9); MEAN CELL VOLUME 83.1 fl (80-96); MONO % 9.2 % (3.8-10.2); NEUT % 77.1 % (42.8-82.8); PLATELET COUNT 693 K/MM3 (134-434); RBC 3.04 M/mm3 (4.00-5.60); RDW 15.7 % (11.9-15.9); WHITE BLOOD COUNT 12.7 K/mm3 (4.0-10.0)
[2017-09-26 09:21] LABS: CHLORIDE 97 mmol/L (98-107); POTASSIUM 4.5 mmol/L (3.5-5.1); SODIUM 135 mmol/L (136-145)
[2017-09-26] MEDS: FERROUS SO4 325 MG TABLET (FP) PO SCH (09:57)
[2017-09-26] MEDS ORDERED: PT OWN MED DRAWER 7, Y5N ONE (10:01)
[2017-09-26] MEDS: ETHACRYNIC ACID 25 MG TABLET PO SCH ×2 (10:03→21:52)
[2017-09-26] MEDS: ASPIRIN COATED 81 MG TABLET.EC PO SCH (10:03)
[2017-09-26] MEDS: CHLORTHALIDONE 25 MG TABLET PO SCH (10:03)
[2017-09-26] MEDS: FOLIC ACID 1 MG TABLET (FP) PO SCH (10:03)
[2017-09-26] MEDS: METOPROLOL TARTRATE 25 MG TABLET (FP) PO SCH ×2 (10:03→21:44)
[2017-09-26] MEDS: POLYETHYLENE GLYCOL 3350 119 GM BTL PO SCH ×2 (10:03→21:52)
[2017-09-26] MEDS: DOCUSATE SODIUM 100 MG CAPSULE (FP) PO SCH (10:03)
[2017-09-26] MEDS: RANITIDINE HCL 150 MG TABLET (FP) PO SCH (10:04)
[2017-09-26] MEDS: CLOPIDOGREL BISULFATE 75 MG TABLET (FP) PO SCH (10:04)
[2017-09-26] MEDS: amLODIPine BESYLATE 10 MG TABLET (FP) PO SCH (10:04)
[2017-09-26] MEDS: NYSTATIN POWDER 100,000 UNITS/GM - 15 GM TOPICAL POWDER TP SCH (10:05)
[2017-09-26 10:39] LABS: ANION GAP 15 (8-16); BLOOD UREA NITROGEN 79 mg/dL (7-18); CALCIUM 8.5 mg/dL (8.5-10.1); CO2 23 mmol/L (21-32); CREATININE 4.1 mg/dL (0.7-1.3); GLUCOSE,RANDOM 137 mg/dL (74-106)
[2017-09-26] MEDS: COLLAGENASE CLOSTRIDIUM HIST. 30 GRAMS TUBE TP SCH (10:59)
[2017-09-26] MEDS ORDERED: HEPARIN NA (PORCINE) 5,000 UNITS/ML 1ML VIAL ONE (11:14)
[2017-09-26] MEDS ORDERED: LIDOCAINE HCL 1%, 10 MG/ML (20ML VIAL) ONE (11:14)
[2017-09-26 11:15] LABS: ACANTHOCYTES 0; ANISOCYTOSIS 0; HELMET CELLS 0; HOWELL-JOLLY BODIES 0; MACROCYTOSIS 0; OVALOCYTE 0; PLATELET ESTIMATE INCREASED; ROULEAU 0; SICKELED CELLS 0; TARGET CELLS 0; TEAR DROP CELLS 0; TOXIC GRANULATION 0
[2017-09-26] MEDS ORDERED: MIDAZOLAM HCL 2 MG/2 ML SINGLE DOSE VIAL ONE (11:33)
[2017-09-26] MEDS ORDERED: ceFAZolin SODIUM 1 GM VIAL IVPB ONE (11:40)
[2017-09-26] MEDS ORDERED: ceFAZolin SODIUM 1 GM VIAL ONE (11:43)
--- NOTE | 2017-09-26 12:11 | OP ---
Operative Note - Note: Operative Date: 09/26/17 Pre-Operative Diagnosis: ESRD Operation: Insertion of permacath Post-Operative Diagnosis: Same as Pre-op Surgeon: Giovanny Ibrahim Anesthesia: Fractional Estimated Blood Loss (mls): 20 Operative Report Dictated: Yes
[2017-09-26] MEDS ORDERED: ONDANSETRON 4 MG/2 ML VIAL IVPUSH PRN (12:49)
[2017-09-26] MEDS ORDERED: BISACODYL 10 MG SUPP.RECT RC PRN (12:49)
[2017-09-26] MEDS ORDERED: AMMONIUM LACTATE 12% LOTION 225 GM BOTTLE TP PRN (12:49)
[2017-09-26] MEDS ORDERED: ACETAMINOPHEN 325 MG TABLET (FP) PO PRN (12:49)
--- NOTE | 2017-09-26 12:50 | PN ---
Progress Note, Physician History of Present Illness: Pt seen and examined at bedside. He had the permacath placed today. - Current Medication List Current Medications: Active Medications Acetaminophen (Tylenol -) 650 mg PO Q4H PRN PRN Reason: FEVER Last Admin: 09/25/17 03:27 Dose: 650 mg Amlodipine Besylate (Norvasc -) 10 mg PO DAILY [facility] Last Admin: 09/26/17 10:04 Dose: Not Given Aspirin (Ecotrin -) 81 mg PO DAILY [facility] Last Admin: 09/26/17 10:03 Dose: Not Given Atorvastatin Calcium (Lipitor -) 10 mg PO HS [facility] Last Admin: 09/25/17 21:37 Dose: 10 mg Bisacodyl (Dulcolax Suppository -) 10 mg RC DAILY PRN PRN Reason: CONSTIPATION Brimonidine Tartrate (Alphagan P 0.1% -) 1 drop OU TID [facility] Last Admin: 09/26/17 06:39 Dose: 1 drop Chlorthalidone (Hygroton -) 100 mg PO DAILY [facility] Last Admin: 09/26/17 10:03 Dose: Not Given Clopidogrel Bisulfate (Plavix -) 75 mg PO DAILY [facility] Last Admin: 09/26/17 10:04 Dose: Not Given Collagenase (Santyl -) 1 applic TP DAILY [facility] Last Admin: 09/26/17 10:59 Dose: 1 applic Docusate Sodium (Colace -) 200 mg PO DAILY [facility] Last Admin: 09/26/17 10:03 Dose: Not Given Ethacrynic Acid (Edecrin -) 75 mg PO BID [facility] Last Admin: 09/26/17 10:03 Dose: Not Given Ferrous Sulfate (Feosol -) 325 mg PO DAILY@0800 [facility] Last Admin: 09/26/17 09:57 Dose: Not Given Folic Acid (Folic Acid -) 1 mg PO DAILY [facility] Last Admin: 09/26/17 10:03 Dose: Not Given Gabapentin (Neurontin -) 600 mg PO TID [facility] Last Admin: 09/26/17 06:39 Dose: 600 mg Hydralazine HCl (Apresoline -) 75 mg PO TID [facility] Last Admin: 09/26/17 06:39 Dose: 75 mg Clindamycin Phosphate (Cleocin 300 Mg Premix Ivpb) 300 mg in 50 mls @ 100 mls/ hr IVPB Q8H-IV [facility]; Protocol Last Admin: 09/26/17 10:05 Dose: 100 mls/hr Insulin Aspart (Novolog Vial Sliding Scale -) 1 vial SQ TIDAC [facility]; Protocol Last Admin: 09/26/17 06:40 Dose: Not Given Insulin Detemir (Levemir Vial) 95 units SQ AM [facility] Last Admin: 09/26/17 06:40 Dose: 95 unit Lactic Acid (Lac-Hydrin 12) 1 applic TP BID PRN PRN Reason: xerosis Last Admin: 09/25/17 10:03 Dose: 1 applic Metoprolol Tartrate (Lopressor -) 25 mg PO BID [facility] Last Admin: 09/26/17 10:03 Dose: Not Given Non-Formulary Medication (Brinzolamide [Azopt]) 1 drop OU TID [facility] Nystatin (Nystop Powder -) 1 applic TP DAILY [facility] Last Admin: 09/26/17 10:05 Dose: 1 applic Ofloxacin (Ocuflox 0.3% Eye Drops -) 1 drop OU TID [facility] Last Admin: 09/26/17 06:39 Dose: 1 drop Ondansetron HCl (Zofran Injection) 4 mg IVPUSH Q8H PRN PRN Reason: NAUSEA Oxycodone HCl (Roxicodone -) 5 mg PO Q6H PRN PRN Reason: PAIN LEVEL 1-5 Last Admin: 09/25/17 21:43 Dose: 5 mg Polyethylene Glycol (Miralax (For Daily Use) -) 17 gm PO BID [facility] Last Admin: 09/26/17 10:03 Dose: Not Given Ranitidine HCl (Zantac -) 150 mg PO DAILY [facility] Last Admin: 09/26/17 10:04 Dose: Not Given - Objective Vital Signs: Vital Signs Temperature 99.7 F H 09/26/17 10:00 Pulse Rate 57 L 09/26/17 10:00 Respiratory Rate 18 09/26/17 10:00 Blood Pressure 132/67 09/26/17 10:00 O2 Sat by Pulse Oximetry (%) 96 09/26/17 09:00 Constitutional: Yes: Calm Eyes: Yes: Conjunctiva Clear HENT: Yes: Atraumatic Cardiovascular: Yes: S1, S2 Respiratory: Yes: On Nasal O2 Gastrointestinal: Yes: Normal Bowel Sounds, Soft, Abdomen, Obese Genitourinary: Yes: Incontinence Musculoskeletal: Yes: Muscle Weakness Edema: Yes Edema: LUE: Trace, RUE: Trace, LLE: Trace, RLE: Trace Neurological: Yes: Oriented Psychiatric: Yes: Oriented Labs: CBC, BMP 09/26/17 07:09 09/26/17 07:09 INR, PTT INR 1.35 (0.82-1.09) H D 09/21/17 05:40 Problem List - Problems (1) Acute on chronic kidney failure Code(s): N17.9 - ACUTE KIDNEY FAILURE, UNSPECIFIED; N18.9 - CHRONIC KIDNEY DISEASE, UNSPECIFIED (2) CHF (congestive heart failure) Code(s): I50.9 - HEART FAILURE, UNSPECIFIED (3) Diabetes Code(s): E11.9 - TYPE 2 DIABETES MELLITUS WITHOUT COMPLICATIONS (4) HTN (hypertension) Code(s): I10 - ESSENTIAL (PRIMARY) HYPERTENSION Assessment/Plan Current Medications Generic Name Dose Route Start Last Admin Trade Name Freq PRN Reason Stop Dose Admin Acetaminophen 650 mg 09/24/17 14:06 09/25/17 03:27 Tylenol - PO 650 mg Q4H PRN Administration FEVER Amlodipine Besylate 10 mg 09/25/17 10:00 09/26/17 10:04 Norvasc - PO Not Given DAILY [facility] Aspirin 81 mg 09/25/17 10:00 09/26/17 10:03 Ecotrin - PO Not Given DAILY [facility] Atorvastatin Calcium 10 mg 09/24/17 22:00 09/25/17 21:37 Lipitor - PO 10 mg HS [facility] Administration Bisacodyl 10 mg 09/24/17 14:06 Dulcolax Suppository - RC DAILY PRN CONSTIPATION Brimonidine Tartrate 1 drop 09/24/17 22:00 09/26/17 06:39 Alphagan P 0.1% - OU 1 drop TID [facility] Administration Chlorthalidone 100 mg 09/25/17 10:00 09/26/17 10:03 Hygroton - PO Not Given DAILY [facility] Clopidogrel Bisulfate 75 mg 09/25/17 10:00 09/26/17 10:04 Plavix - PO Not Given DAILY [facility] Collagenase 1 applic 09/25/17 10:00 09/26/17 10:59 Santyl - TP 1 applic DAILY [facility] Administration Docusate Sodium 200 mg 09/25/17 10:00 09/26/17 10:03 Colace - PO Not Given DAILY [facility] Ethacrynic Acid 75 mg 09/24/17 22:00 09/26/17 10:03 Edecrin - PO Not Given BID [facility] Ferrous Sulfate 325 mg 09/25/17 08:00 09/26/17 09:57 Feosol - PO Not Given DAILY@0800 [facility] Folic Acid 1 mg 09/25/17 10:00 09/26/17 10:03 Folic Acid - PO Not Given DAILY [facility] Gabapentin 600 mg 09/24/17 22:00 09/26/17 06:39 Neurontin - PO 600 mg TID [facility] Administration Hydralazine HCl 75 mg 09/24/17 22:00 09/26/17 06:39 Apresoline - PO 75 mg TID [facility] Administration Clindamycin Phosphate 300 mg in 50 mls @ 100 mls/hr 09/26/17 02:00 09/26/17 10:05 Cleocin 300 Mg Premix Ivpb IVPB 100 mls/hr Q8H-IV [facility] Administration Protocol Insulin Aspart 1 vial 09/24/17 16:30 09/26/17 06:40 Novolog Vial Sliding Scale - SQ Not Given TIDAC [facility] Protocol Insulin Detemir 95 units 09/25/17 07:00 09/26/17 06:40 Levemir Vial SQ 95 unit AM [facility] Administration Lactic Acid 1 applic 09/24/17 14:06 09/25/17 10:03 Lac-Hydrin 12 TP 1 applic BID PRN Administration xerosis Metoprolol Tartrate 25 mg 09/24/17 22:00 09/26/17 10:03 Lopressor - PO Not Given BID [facility] Non-Formulary Medication 1 drop 09/24/17 22:00 Brinzolamide [Azopt] OU TID [facility] Nystatin 1 applic 09/25/17 10:00 09/26/17 10:05 Nystop Powder - TP 1 applic DAILY [facility] Administration Ofloxacin 1 drop 09/24/17 22:00 09/26/17 06:39 Ocuflox 0.3% Eye Drops - OU 1 drop TID [facility] Administration Ondansetron HCl 4 mg 09/24/17 14:06 Zofran Injection IVPUSH Q8H PRN [facility]USE[facility] Oxycodone HCl 5 mg 09/25/17 09:16 09/25/17 21:43 Roxicodone - PO 5 mg Q6H PRN Administration PAIN LEVEL 1-5 Polyethylene Glycol 17 gm 09/24/17 22:00 09/26/17 10:03 Miralax (For Daily Use) - PO Not Given BID [facility] Ranitidine HCl 150 mg 09/25/17 10:00 09/26/17 10:04 Zantac - PO Not Given DAILY [facility] Laboratory Tests 09/24/17 09/25/17 09/26/17 05:30 06:15 07:09 Creatinine 3.0 H 3.9 H D 4.1 H Laboratory Tests 09/16/17 09/16/17 09/26/17 06:30 06:30 07:09 Hgb 8.1 L Iron 11 L TIBC 127 L Iron Saturation 9 L Ferritin 321.787 H Impression 1. CKD 2. DM 3. cervical spine disease 4. HTN 5. CHF 6. obesity 7. anemia 8. DOMINIK 9. HLD 10. volume overload 11. 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
--- NOTE | 2017-09-26 12:56 | OP ---
DATE OF OPERATION: 09/26/2017 PREOPERATIVE DIAGNOSIS: Endstage renal disease. POSTOPERATIVE DIAGNOSIS: Endstage renal disease. PROCEDURE: Insertion of PermCath. SURGEON: Giovanny Shen DO ANESTHESIA: Fractional. BLOOD LOSS: 20 mL. The patient is a 67-year-old male that needs temporary dialysis catheter placement in the form of a PermCath. Patient was consented for the procedure understanding all risks, benefits and alternatives and then taken to the operating room. Once in the operating room he was laid on the operating table in the supine manner and the area of the right neck and chest were prepped and draped in a sterile surgical manner. We then under ultrasound guidance visualized the right internal jugular vein and 10 mL of lidocaine 1% was injected there. We then took our Micropuncture needle and punctured the right internal jugular vein under ultrasound guidance. Micropuncture wire was inserted. The Micropuncture sheath was inserted and a 0.035 floppy guidewire was inserted under fluoroscopy. We then injected 10 mL of lidocaine 1% above and below the clavicle. Used an 11 blade and made a 1-cm incision at the puncture site. We used a 15 blade and made a 1-cm incision below the clavicle. We then tunneled the PermCath up to the puncture site. We then placed our brachial sheath over the guidewire into the vein under fluoroscopy and the cannula and guidewire were removed. Catheter was placed into the sheath. Sheath was broken away as the catheter was placed inside the vein. The neck of the catheter was nice and smooth. Tip of the catheter was located outside the right atrium. We then sammy back on each port of the catheter and there was good flow. Heparinized saline was injected; 2000 units of IV heparin was injected into each port. Biosyn 4-0 was then used and 2 simple stitches were placed at the puncture site. Nylon 3-0 was used on the catheter to attach it to the skin. Biopatch, Steri-Strips, 4 x 4 and Tegaderms were placed. Patient tolerated his procedure with no complication. Patient transferred to PACU in stable condition where chest x-ray will be obtained. GIOVANNY SHEN DO [id number]
--- NOTE | 2017-09-26 13:38 | PN ---
Progress Note, Physician History of Present Illness: stable doing well spoke with the son kandace garcias - Current Medication List Current Medications: Active Medications Acetaminophen (Tylenol -) 650 mg PO Q4H PRN PRN Reason: FEVER Amlodipine Besylate (Norvasc -) 10 mg PO DAILY [facility] Aspirin (Ecotrin -) 81 mg PO DAILY [facility] Atorvastatin Calcium (Lipitor -) 10 mg PO HS [facility] Bisacodyl (Dulcolax Suppository -) 10 mg RC DAILY PRN PRN Reason: CONSTIPATION Brimonidine Tartrate (Alphagan P 0.1% -) 1 drop OU TID [facility] Chlorthalidone (Hygroton -) 100 mg PO DAILY [facility] Clopidogrel Bisulfate (Plavix -) 75 mg PO DAILY [facility] Collagenase (Santyl -) 1 applic TP DAILY [facility] Docusate Sodium (Colace -) 200 mg PO DAILY [facility] Epoetin Michael (Epogen -) 4,000 unit IVPUSH ONCE ONE Stop: 09/26/17 12:51 Ethacrynic Acid (Edecrin -) 75 mg PO BID [facility] Fentanyl (Sublimaze Injection -) 25 mcg IVPUSH [id number] PRN PRN Reason: PAIN-PACU ORDER X 4 DOSES ONLY Last Admin: 09/26/17 13:00 Dose: 25 mcg Ferrous Sulfate (Feosol -) 325 mg PO DAILY@0800 [facility] Folic Acid (Folic Acid -) 1 mg PO DAILY [facility] Gabapentin (Neurontin -) 600 mg PO TID [facility] Hydralazine HCl (Apresoline -) 75 mg PO TID [facility] Clindamycin Phosphate (Cleocin 300 Mg Premix Ivpb) 300 mg in 50 mls @ 100 mls/ hr IVPB Q8H-IV [facility]; Protocol Sodium Chloride (Normal Saline -) 250 mls @ 3,000 mls/hr IV PRN PRN PRN Reason: Hypotension during Dialysis Stop: 09/27/17 12:50 Iron Sucrose 100 mg/ Sodium (Chloride) 100 mls @ 200 mls/hr IVPB ONCE ONE Stop: 09/26/17 13:19 Insulin Aspart (Novolog Vial Sliding Scale -) 1 vial SQ TIDAC [facility]; Protocol Insulin Detemir (Levemir Vial) 95 units SQ AM [facility] Lactic Acid (Lac-Hydrin 12) 1 applic TP BID PRN PRN Reason: xerosis Metoprolol Tartrate (Lopressor -) 25 mg PO BID [facility] Non-Formulary Medication (Brinzolamide [Azopt]) 1 drop OU TID [facility] Nystatin (Nystop Powder -) 1 applic TP DAILY [facility] Ofloxacin (Ocuflox 0.3% Eye Drops -) 1 drop OU TID [facility] Ondansetron HCl (Zofran Injection) 4 mg IVPUSH Q8H PRN PRN Reason: NAUSEA Oxycodone HCl (Roxicodone -) 5 mg PO Q6H PRN PRN Reason: PAIN LEVEL 1-5 Polyethylene Glycol (Miralax (For Daily Use) -) 17 gm PO BID [facility] Ranitidine HCl (Zantac -) 150 mg PO DAILY [facility] - Objective Vital Signs: Vital Signs Temperature 97.8 F 09/26/17 12:03 Pulse Rate 59 L 09/26/17 13:15 Respiratory Rate 10 L 09/26/17 13:15 Blood Pressure 137/57 09/26/17 13:15 O2 Sat by Pulse Oximetry (%) 100 09/26/17 13:15 Constitutional: Yes: No Distress, Calm Cardiovascular: Yes: Regular Rate and Rhythm Respiratory: Yes: Regular, CTA Bilaterally Gastrointestinal: Yes: Normal Bowel Sounds, Soft Musculoskeletal: Yes: WNL Extremities: Yes: Other Neurological: Yes: Alert, Oriented Psychiatric: Yes: Alert, Oriented Labs: CBC, BMP 09/26/17 07:09 09/26/17 07:09 INR, PTT INR 1.35 (0.82-1.09) H D 09/21/17 05:40 Assessment/Plan 67 yo male s/p exploration of spinal fusion, C2-T2 laminectomies and C7-T1 osteotomies, deformity correction and C2-T2 posterior fusion. r/o uti numbness leukocytosis Cervical Spinal Stenosis s/p C2-T2 Laminectomies/Posterior Fusions CAD Aortic Stenosis s/p AVR HTN DM CKD DOMINIK Toe Ulcer fever plan continue oral abx continue monitoring for fever rest as per the team patient doing well
--- NOTE | 2017-09-26 13:53 | PN ---
Physical Exam: SUBJECTIVE: Patient seen and examined. Pt seen this am and after permacath placement. He is doing well. Denies further rectal pain OBJECTIVE: Vital Signs Period Temp Pulse Resp BP Sys/Kauffman Pulse Ox Last 24 Hr 97.8 F-99.7 F 57-87 10-20 127-144/53-72 96-100 PE Neuro: alert, awake, c collar in place Pulm: Clear anteriorly, no sob rhonchi CV: s1 s2 rrr no mrg Abd: obese abd, soft + bc Joshua: yellow clear urine Ext: warm, L foot wound, 2nd toe dried wound , no le edema + DP pulse Laboratory Results - last 24 hr 09/26/17 09/26/17 07:09 07:09 WBC 12.7 H RBC 3.04 L Hgb 8.1 L Hct 25.2 L MCV 83.1 MCH 26.6 MCHC 32.1 RDW 15.7 Plt Count 693 H MPV 8.0 Absolute Neuts (auto) 9.8 Neutrophils % 77.1 Neutrophils % (Manual) 78.0 Band Neutrophils % 0.0 Lymphocytes % 9.7 Lymphocytes % (Manual) 11.0 Monocytes % 9.2 Monocytes % (Manual) 3 L Eosinophils % 3.2 Eosinophils % (Manual) 5.0 H D Basophils % 0.8 Basophils % (Manual) 1.0 D Myelocytes % (Man) 2 D Promyelocytes % (Man) 0 Blast Cells % (Manual) 0 Nucleated RBC % 0 Metamyelocytes 0 Hypochromia 0 Toxic Granulation 0 Dohle Bodies 0 Platelet Estimate Increased Polychromasia 0 Poikilocytosis 0 Basophilic Stippling 0 Anisocytosis 0 Microcytosis 0 Macrocytosis 0 Spherocytes 0 Sickle Cells 0 Target Cells 0 Tear Drop Cells 0 Ovalocytes 0 Stomatocytes 0 Helmet Cells 0 [place] Bodies 0 [place] Rings 0 [place] Cells 0 Acanthocytes (Spur) 0 Rouleaux 0 Fragmented RBCs 0 Schistocytes 0 Sodium 135 L Potassium 4.5 Chloride 97 L Carbon Dioxide 23 Anion Gap 15 BUN 79 H Creatinine 4.1 H POC Glucometer Random Glucose 137 H D Calcium 8.5 Active Medications Generic Name Dose Route Start Last Admin Trade Name Freq PRN Reason Stop Dose Admin Acetaminophen 650 mg 09/26/17 12:49 Tylenol - PO Q4H PRN FEVER Amlodipine Besylate 10 mg 09/27/17 10:00 Norvasc - PO DAILY [facility] Aspirin 81 mg 09/27/17 10:00 Ecotrin - PO DAILY [facility] Atorvastatin Calcium 10 mg 09/26/17 22:00 Lipitor - PO HS [facility] Bisacodyl 10 mg 09/26/17 12:49 Dulcolax Suppository - RC DAILY PRN CONSTIPATION Brimonidine Tartrate 1 drop 09/26/17 14:00 Alphagan P 0.1% - OU TID [facility] Chlorthalidone 100 mg 09/27/17 10:00 Hygroton - PO DAILY [facility] Clopidogrel Bisulfate 75 mg 09/27/17 10:00 Plavix - PO DAILY [facility] Collagenase 1 applic 09/27/17 10:00 Santyl - TP DAILY [facility] Docusate Sodium 200 mg 09/27/17 10:00 Colace - PO DAILY [facility] Epoetin Michael 4,000 unit 09/26/17 12:50 Epogen - IVPUSH 09/26/17 12:51 ONCE ONE Ethacrynic Acid 75 mg 09/26/17 22:00 Edecrin - PO BID [facility] Fentanyl 25 mcg 09/26/17 12:57 09/26/17 13:00 Sublimaze Injection - IVPUSH 25 mcg [id number] PRN Administration PAIN-PACU ORDER X 4 DOSES ONLY Ferrous Sulfate 325 mg 09/27/17 08:00 Feosol - PO DAILY@0800 [facility] Folic Acid 1 mg 09/27/17 10:00 Folic Acid - PO DAILY [facility] Gabapentin 600 mg 09/26/17 14:00 Neurontin - PO TID [facility] Hydralazine HCl 75 mg 09/26/17 14:00 Apresoline - PO TID [facility] Clindamycin Phosphate 300 mg in 50 mls @ 100 mls/hr 09/26/17 18:00 Cleocin 300 Mg Premix Ivpb IVPB Q8H-IV [facility] Protocol Sodium Chloride 250 mls @ 3,000 mls/hr 09/26/17 12:50 Normal Saline - IV 09/27/17 12:50 PRN PRN Hypotension during Dialysis Iron Sucrose 100 mg/ Sodium 100 mls @ 200 mls/hr 09/26/17 12:50 Chloride IVPB 09/26/17 13:19 ONCE ONE Insulin Aspart 1 vial 09/26/17 16:30 Novolog Vial Sliding Scale - SQ TIDAC [facility] Protocol Insulin Detemir 95 units 09/27/17 07:00 Levemir Vial SQ AM [facility] Lactic Acid 1 applic 09/26/17 12:49 Lac-Hydrin 12 TP BID PRN xerosis Metoprolol Tartrate 25 mg 09/26/17 22:00 Lopressor - PO BID [facility] Non-Formulary Medication 1 drop 09/26/17 14:00 Brinzolamide [Azopt] OU TID [facility] Nystatin 1 applic 09/27/17 10:00 Nystop Powder - TP DAILY [facility] Ofloxacin 1 drop 09/26/17 14:00 Ocuflox 0.3% Eye Drops - OU TID [facility] Ondansetron HCl 4 mg 09/26/17 12:49 Zofran Injection IVPUSH Q8H PRN [facility] Oxycodone HCl 5 mg 09/26/17 12:49 Roxicodone - PO Q6H PRN PAIN LEVEL 1-5 Polyethylene Glycol 17 gm 09/26/17 22:00 Miralax (For Daily Use) - PO BID [facility] Ranitidine HCl 150 mg 09/27/17 10:00 Zantac - PO DAILY [facility] Imaging: - Renal ultrasound: morphologically normal kidneys with no evidence of hydronephrosis or acute pathology Assessment: 67 year old male with PMHx of HTN, DM, hyperlipidemia, obesity, sleep apnea, CKD, s/p RCA stent 05/30/10, s/p TAVR on 07/04/13, wheelchair bound, cardiac cath 06/17/13, who is s/p C2-T12 laminectomy and C7-T1 osteotomies, deformity correction and C2-T2 posterior fusion on 09/11. Plan: 1. CKD - Permacath today - HD this afternoon - Continue chlorthalidone - Joshua re inserted 2. Fever - Resolved - Maintain clindamycin 300mg tid x 10 days (day 3) per ID 3. S/p C2-T12 laminectomy and C7-T1 osteotomies, deformity correction and C2-T2 posterior fusion on 09/11 - C-collar in place (continue 23/24 hours a day) - Pain management - Neuro surgery seeing 4. Left big toe wound - Staph aureus from wound culture - Ammonia lactate bid - Santyl daily to left big toe - Heel pads bilaterally 5. CAD - Continue ASA - Continue Plavix 6. HTN - Continue Norvasc - Continue Hydralazine 7. DM II - BGM, ISS ACHS - Continue Levemir 95u sq AM 8. Sleep apnea - Bipap 9. Prophylaxis: - Chemical DVT prophylaxis per surgery 10. Constipation/rectal pain - Resolved Visit type - Emergency Visit Emergency Visit: Yes ED Registration Date: 09/11/17 Care time: The patient presented to the Emergency Department on the above date and was hospitalized for further evaluation of their emergent condition. - New Patient This patient is new to me today: No - Critical Care Critical Care patient: No
[2017-09-26] MEDS ORDERED: PATIENT'S OWN MEDICATION (NON-FORMULARY) (Brinzolamide [Azopt] 1 DROP) OU SCH (14:00)
[2017-09-26] MEDS ORDERED: IRON SUCROSE INJECTION 100 MG in SODIUM CHLORIDE 95 ML IVPB ONE (14:30)
[2017-09-26] MEDS ORDERED: CLINDAMYCIN 300 MG PREMIX IVPB 300 MG/50 ML BAG IVPB SCH (18:00)
[2017-09-26] MEDS ORDERED: SODIUM CHLORIDE 250 ML IV PRN (18:58)
[2017-09-26] MEDS ORDERED: EPOETIN ALFA 2,000 UNIT/1 ML VIAL IVPUSH ONE (19:00)
[2017-09-26] MEDS: ATORVASTATIN CA 10 MG TABLET (FP) PO SCH (21:44)
[2017-09-26] MEDS: oxyCODONE HCL 5 MG TABLET PO PRN (21:45)
[2017-09-27 08:56] LABS: ANION GAP 11 (8-16); BLOOD UREA NITROGEN 48 mg/dL (7-18); CALCIUM 8.3 mg/dL (8.5-10.1); CHLORIDE 98 mmol/L (98-107); CO2 28 mmol/L (21-32); CREATININE 3.4 mg/dL (0.7-1.3); GLUCOSE,RANDOM 111 mg/dL (74-106); POTASSIUM 4.5 mmol/L (3.5-5.1); SODIUM 137 mmol/L (136-145)
[2017-09-27 09:02] LABS: BASO % 0.7 % (0-2.0); EOS % 2.8 % (0-4.5); HEMATOCRIT 24.6 % (35.4-49); LYMPH % 10.1 % (8-40); MCH 26.9 pg (25.7-33.7); MCHC 32.5 g/dl (32.0-35.9); MEAN CELL VOLUME 82.7 fl (80-96); MEAN PLT VOLUME 7.8 fl (7.5-11.1); MONO % 10.5 % (3.8-10.2); NEUT % 75.9 % (42.8-82.8); PLATELET COUNT 612 K/MM3 (134-434); RBC 2.98 M/mm3 (4.00-5.60); RDW 15.3 % (11.9-15.9); WHITE BLOOD COUNT 11.9 K/mm3 (4.0-10.0)
[2017-09-27] MEDS ORDERED: PT OWN MED DRAWER 7, Y5N ONE ×5 (09:41→21:06)
--- NOTE | 2017-09-27 09:42 | PN ---
Progress Note (short form) - Note Progress Note: NAD on 4 L NC O2. No CP. Overall improving. No acute events overnight. Intake & Output 09/24/17 09/25/17 09/26/17 09/27/17 23:59 23:59 23:59 23:59 Intake Total 770 650 500 Output Total 400 1600 1800 Balance 370 -950 -1300 Weight 259 lb 4 oz 255 lb 5 oz 244 lb 14.4 oz Last Vital Signs Temp Pulse Resp BP Pulse Ox 97.8 F 79 18 167/82 97 09/26/17 22:00 09/26/17 22:00 09/26/17 22:00 09/26/17 22:00 09/26/17 21:00 Active Medications Acetaminophen (Tylenol -) 650 mg PO Q4H PRN PRN Reason: FEVER Amlodipine Besylate (Norvasc -) 10 mg PO DAILY [facility] Aspirin (Ecotrin -) 81 mg PO DAILY [facility] Atorvastatin Calcium (Lipitor -) 10 mg PO HS [facility] Last Admin: 09/26/17 21:44 Dose: 10 mg Bisacodyl (Dulcolax Suppository -) 10 mg RC DAILY PRN PRN Reason: CONSTIPATION Brimonidine Tartrate (Alphagan P 0.1% -) 1 drop OU TID [facility] Last Admin: 09/26/17 21:47 Dose: 1 drop Chlorthalidone (Hygroton -) 100 mg PO DAILY [facility] Clopidogrel Bisulfate (Plavix -) 75 mg PO DAILY [facility] Collagenase (Santyl -) 1 applic TP DAILY [facility] Docusate Sodium (Colace -) 200 mg PO DAILY [facility] Ethacrynic Acid (Edecrin -) 75 mg PO BID [facility] Last Admin: 09/26/17 21:52 Dose: 75 mg Fentanyl (Sublimaze Injection -) 25 mcg IVPUSH [id number] PRN PRN Reason: PAIN-PACU ORDER X 4 DOSES ONLY Last Admin: 09/26/17 13:00 Dose: 25 mcg Ferrous Sulfate (Feosol -) 325 mg PO DAILY@0800 [facility] Folic Acid (Folic Acid -) 1 mg PO DAILY [facility] Gabapentin (Neurontin -) 600 mg PO TID [facility] Last Admin: 09/26/17 21:44 Dose: 600 mg Hydralazine HCl (Apresoline -) 75 mg PO TID [facility] Last Admin: 06/13/18 21:45 Dose: 75 mg Clindamycin Phosphate (Cleocin 300 Mg Premix Ivpb) 300 mg in 50 mls @ 100 mls/ hr IVPB Q8H-IV [facility]; Protocol Last Admin: 09/27/17 01:00 Dose: 100 mls/hr Sodium Chloride (Normal Saline -) 250 mls @ 3,000 mls/hr IV PRN PRN PRN Reason: Hypotension during Dialysis Stop: 09/27/17 18:57 Insulin Aspart (Novolog Vial Sliding Scale -) 1 vial SQ TIDAC [facility]; Protocol Insulin Detemir (Levemir Vial) 95 units SQ AM [facility] Lactic Acid (Lac-Hydrin 12) 1 applic TP BID PRN PRN Reason: xerosis Metoprolol Tartrate (Lopressor -) 25 mg PO BID [facility] Last Admin: 09/26/17 21:44 Dose: 25 mg Non-Formulary Medication (Brinzolamide [Azopt]) 1 drop OU TID [facility] Nystatin (Nystop Powder -) 1 applic TP DAILY [facility] Ofloxacin (Ocuflox 0.3% Eye Drops -) 1 drop OU TID [facility] Last Admin: 09/26/17 21:53 Dose: 1 drop Ondansetron HCl (Zofran Injection) 4 mg IVPUSH Q8H PRN PRN Reason: NAUSEA Oxycodone HCl (Roxicodone -) 5 mg PO Q6H PRN PRN Reason: PAIN LEVEL 1-5 Last Admin: 09/26/17 21:45 Dose: 5 mg Polyethylene Glycol (Miralax (For Daily Use) -) 17 gm PO BID [facility] Last Admin: 09/26/17 21:52 Dose: 17 grams Ranitidine HCl (Zantac -) 150 mg PO DAILY [facility] Constitutional: Yes: Mildly tachypneic at rest, Obese Eyes: Yes: WNL HENT: Yes: WNL Neck: Yes: brace Cardiovascular: Yes: Regular Rate and Rhythm, S1, S2 Respiratory: Yes: Diminished Gastrointestinal: Yes: Normal Bowel Sounds, Soft Extremities: Yes: WNL Edema: Yes Labs: Laboratory Results - last 24 hr 09/26/17 09/26/17 09/27/17 07:09 07:09 06:28 WBC RBC Hgb Hct MCV MCH MCHC RDW Plt Count MPV Absolute Neuts (auto) Neutrophils % Neutrophils % (Manual) 78.0 Band Neutrophils % 0.0 Lymphocytes % Lymphocytes % (Manual) 11.0 Monocytes % Monocytes % (Manual) 3 L Eosinophils % Eosinophils % (Manual) 5.0 H D Basophils % Basophils % (Manual) 1.0 D Myelocytes % (Man) 2 D Promyelocytes % (Man) 0 Blast Cells % (Manual) 0 Nucleated RBC % Metamyelocytes 0 Hypochromia 0 Toxic Granulation 0 Dohle Bodies 0 Platelet Estimate Increased Polychromasia 0 Poikilocytosis 0 Basophilic Stippling 0 Anisocytosis 0 Microcytosis 0 Macrocytosis 0 Spherocytes 0 Sickle Cells 0 Target Cells 0 Tear Drop Cells 0 Ovalocytes 0 Stomatocytes 0 Helmet Cells 0 [place] Bodies 0 [place] Rings 0 [place] Cells 0 Acanthocytes (Spur) 0 Rouleaux 0 Fragmented RBCs 0 Schistocytes 0 Sodium 135 L Potassium 4.5 Chloride 97 L Carbon Dioxide 23 Anion Gap 15 BUN 79 H Creatinine 4.1 H POC Glucometer 112 Random Glucose 137 H D Calcium 8.5 09/27/18 07:10 WBC 11.9 H RBC 2.98 L Hgb 8.0 L Hct 24.6 L MCV 82.7 MCH 26.9 MCHC 32.5 RDW 15.3 Plt Count 612 H MPV 7.8 Absolute Neuts (auto) 9.1 Neutrophils % 75.9 Neutrophils % (Manual) Band Neutrophils % Lymphocytes % 10.1 Lymphocytes % (Manual) Monocytes % 10.5 H Monocytes % (Manual) Eosinophils % 2.8 Eosinophils % (Manual) Basophils % 0.7 Basophils % (Manual) Myelocytes % (Man) Promyelocytes % (Man) Blast Cells % (Manual) Nucleated RBC % 0 Metamyelocytes Hypochromia Toxic Granulation Dohle Bodies Platelet Estimate Polychromasia Poikilocytosis Basophilic Stippling Anisocytosis Microcytosis Macrocytosis Spherocytes Sickle Cells Target Cells Tear Drop Cells Ovalocytes Stomatocytes Helmet Cells [place] Bodies [place] Rings Neil Cells Acanthocytes (Spur) Rouleaux Fragmented RBCs Schistocytes Sodium Potassium Chloride Carbon Dioxide Anion Gap BUN Creatinine POC Glucometer Random Glucose Calcium Problem List - Problems (1) Dyspnea Code(s): R06.00 - DYSPNEA, UNSPECIFIED (2) Back pain Code(s): M54.9 - DORSALGIA, UNSPECIFIED (3) CHF (congestive heart failure) Code(s): I50.9 - HEART FAILURE, UNSPECIFIED (4) Cervical myelopathy Code(s): G95.9 - DISEASE OF SPINAL CORD, UNSPECIFIED (5) HTN (hypertension) Code(s): I10 - ESSENTIAL (PRIMARY) HYPERTENSION (6) DOMINIK (obstructive sleep apnea) Code(s): G47.33 - OBSTRUCTIVE SLEEP APNEA (ADULT) (PEDIATRIC) (7) S/P TAVR (transcatheter aortic valve replacement) Code(s): Z95.2 - PRESENCE OF PROSTHETIC HEART VALVE (8) Acute on chronic kidney failure Code(s): N17.9 - ACUTE KIDNEY FAILURE, UNSPECIFIED; N18.9 - CHRONIC KIDNEY DISEASE, UNSPECIFIED (9) Diabetes Code(s): E11.9 - TYPE 2 DIABETES MELLITUS WITHOUT COMPLICATIONS Assessment/Plan Cervical Spinal Stenosis s/p C2-T2 Laminectomies/Posterior Fusions Respiratory distress DYSPNEA VOLUME OVERLOAD CAD Aortic Stenosis s/p AVR HTN DM CKD DOMINIK ANEMIA Toe Ulcer - NIPPV QHS and PRN / Wean FiO2 as tolerated - HD as per renal - pain control - incentive spirometry - rehab/PT - monitor lytes - DVT prophylaxis - ABX per ID Dr Ortez
[2017-09-27] MEDS: METOPROLOL TARTRATE 25 MG TABLET (FP) PO SCH ×2 (09:51→21:31)
[2017-09-27] MEDS: CLOPIDOGREL BISULFATE 75 MG TABLET (FP) PO SCH (09:51)
[2017-09-27] MEDS: RANITIDINE HCL 150 MG TABLET (FP) PO SCH (09:51)
[2017-09-27] MEDS: amLODIPine BESYLATE 10 MG TABLET (FP) PO SCH (09:51)
[2017-09-27] MEDS: ASPIRIN COATED 81 MG TABLET.EC PO SCH (09:51)
[2017-09-27] MEDS: FOLIC ACID 1 MG TABLET (FP) PO SCH (09:51)
[2017-09-27] MEDS: BRIMONIDINE TARTRATE 0.1% OPHTHALMIC 5 ML BOTTLE OU SCH ×3 (09:52→21:32)
[2017-09-27] MEDS: DOCUSATE SODIUM 100 MG CAPSULE (FP) PO SCH (09:52)
[2017-09-27] MEDS: FERROUS SO4 325 MG TABLET (FP) PO SCH (09:53)
[2017-09-27] MEDS: ETHACRYNIC ACID 25 MG TABLET PO SCH ×2 (09:53→21:34)
[2017-09-27] MEDS: CHLORTHALIDONE 25 MG TABLET PO SCH (09:54)
[2017-09-27] MEDS ORDERED: SODIUM CHLORIDE 250 ML IV PRN (10:00)
--- NOTE | 2017-09-27 10:20 | PN ---
Progress Note (short form) - Note Progress Note: Pt seen and examined. Right hand feels much better, less pain, less swelling, better ROM (although his baseline is not at a nl level). Dorsal hand swelling much improved. Non tender to palpation. No erythema. No signs of infection. Imp Resolved right hand swelling from IV infiltrate Rec Elevation O.T., right hand ROM exercises No surgery needed on the hand
--- NOTE | 2017-09-27 10:21 | PN ---
Progress Note, Physician History of Present Illness: continues to be on 4l of nasal canula no issues overnight - Current Medication List Current Medications: Active Medications Acetaminophen (Tylenol -) 650 mg PO Q4H PRN PRN Reason: FEVER Amlodipine Besylate (Norvasc -) 10 mg PO DAILY [facility] Last Admin: 09/27/17 09:51 Dose: 10 mg Aspirin (Ecotrin -) 81 mg PO DAILY [facility] Last Admin: 09/27/17 09:51 Dose: 81 mg Atorvastatin Calcium (Lipitor -) 10 mg PO HS [facility] Last Admin: 09/26/17 21:44 Dose: 10 mg Bisacodyl (Dulcolax Suppository -) 10 mg RC DAILY PRN PRN Reason: CONSTIPATION Brimonidine Tartrate (Alphagan P 0.1% -) 1 drop OU TID [facility] Last Admin: 09/27/17 09:52 Dose: 1 drop Chlorthalidone (Hygroton -) 100 mg PO DAILY [facility] Last Admin: 09/27/17 09:54 Dose: 75 mg Clopidogrel Bisulfate (Plavix -) 75 mg PO DAILY [facility] Last Admin: 09/27/17 09:51 Dose: 75 mg Collagenase (Santyl -) 1 applic TP DAILY [facility] Docusate Sodium (Colace -) 200 mg PO DAILY [facility] Last Admin: 09/27/17 09:52 Dose: 200 mg Ethacrynic Acid (Edecrin -) 75 mg PO BID [facility] Last Admin: 09/27/17 09:53 Dose: 75 mg Fentanyl (Sublimaze Injection -) 25 mcg IVPUSH [id number] PRN PRN Reason: PAIN-PACU ORDER X 4 DOSES ONLY Last Admin: 09/26/17 13:00 Dose: 25 mcg Ferrous Sulfate (Feosol -) 325 mg PO DAILY@0800 [facility] Last Admin: 09/27/17 09:53 Dose: Not Given Folic Acid (Folic Acid -) 1 mg PO DAILY [facility] Last Admin: 09/27/17 09:51 Dose: 1 mg Gabapentin (Neurontin -) 600 mg PO TID [facility] Last Admin: 09/26/17 21:44 Dose: 600 mg Hydralazine HCl (Apresoline -) 75 mg PO TID [facility] Last Admin: 09/26/17 21:45 Dose: 75 mg Clindamycin Phosphate (Cleocin 300 Mg Premix Ivpb) 300 mg in 50 mls @ 100 mls/ hr IVPB Q8H-IV [facility]; Protocol Last Admin: 09/27/17 01:00 Dose: 100 mls/hr Sodium Chloride (Normal Saline -) 250 mls @ 3,000 mls/hr IV PRN PRN PRN Reason: Hypotension during Dialysis Stop: 09/27/17 18:57 Insulin Aspart (Novolog Vial Sliding Scale -) 1 vial SQ TIDAC [facility]; Protocol Insulin Detemir (Levemir Vial) 95 units SQ AM [facility] Lactic Acid (Lac-Hydrin 12) 1 applic TP BID PRN PRN Reason: xerosis Metoprolol Tartrate (Lopressor -) 25 mg PO BID [facility] Last Admin: 09/27/17 09:51 Dose: 25 mg Non-Formulary Medication (Brinzolamide [Azopt]) 1 drop OU TID [facility] Nystatin (Nystop Powder -) 1 applic TP DAILY [facility] Ofloxacin (Ocuflox 0.3% Eye Drops -) 1 drop OU TID [facility] Last Admin: 09/26/17 21:53 Dose: 1 drop Ondansetron HCl (Zofran Injection) 4 mg IVPUSH Q8H PRN PRN Reason: NAUSEA Oxycodone HCl (Roxicodone -) 5 mg PO Q6H PRN PRN Reason: PAIN LEVEL 1-5 Last Admin: 09/26/17 21:45 Dose: 5 mg Polyethylene Glycol (Miralax (For Daily Use) -) 17 gm PO BID [facility] Last Admin: 09/26/17 21:52 Dose: 17 grams Ranitidine HCl (Zantac -) 150 mg PO DAILY [facility] Last Admin: 09/27/17 09:51 Dose: 150 mg - Objective Vital Signs: Vital Signs Temperature 97.8 F 09/26/17 22:00 Pulse Rate 79 09/26/17 22:00 Respiratory Rate 18 09/26/17 22:00 Blood Pressure 167/82 09/26/17 22:00 O2 Sat by Pulse Oximetry (%) 97 09/26/17 21:00 Constitutional: Yes: No Distress, Calm HENT: Yes: Other (hard collar) Cardiovascular: Yes: Regular Rate and Rhythm Respiratory: Yes: Regular, CTA Bilaterally Gastrointestinal: Yes: Normal Bowel Sounds, Soft Musculoskeletal: Yes: WNL Extremities: Yes: WNL Neurological: Yes: Alert, Oriented Psychiatric: Yes: Alert, Oriented Labs: CBC, BMP 09/27/17 07:10 09/26/17 07:09 INR, PTT INR 1.35 (0.82-1.09) H D 09/21/17 05:40 Assessment/Plan 67 yo male s/p exploration of spinal fusion, C2-T2 laminectomies and C7-T1 osteotomies, deformity correction and C2-T2 posterior fusion. r/o uti numbness leukocytosis Cervical Spinal Stenosis s/p C2-T2 Laminectomies/Posterior Fusions CAD Aortic Stenosis s/p AVR HTN DM CKD DOMINIK Toe Ulcer fever plan can stop oral abx tomorrow rest continue current mgmt patient stable
--- NOTE | 2017-09-27 13:03 | PN ---
Progress Note (short form) - Note Progress Note: Anesthesia postop note 67 y/o M s/p MAC for permacath insertion POD#1, vss, aaox3, no anesthesia complications.
--- NOTE | 2017-09-27 14:20 | PN ---
Progress Note, Physician History of Present Illness: Pt seen and examined at bedside. He is awake and alert. He feels breathing is improved. - Current Medication List Current Medications: Active Medications Acetaminophen (Tylenol -) 650 mg PO Q4H PRN PRN Reason: FEVER Amlodipine Besylate (Norvasc -) 10 mg PO DAILY [facility] Last Admin: 09/27/17 09:51 Dose: 10 mg Aspirin (Ecotrin -) 81 mg PO DAILY [facility] Last Admin: 09/27/17 09:51 Dose: 81 mg Atorvastatin Calcium (Lipitor -) 10 mg PO HS [facility] Last Admin: 09/26/17 21:44 Dose: 10 mg Bisacodyl (Dulcolax Suppository -) 10 mg RC DAILY PRN PRN Reason: CONSTIPATION Brimonidine Tartrate (Alphagan P 0.1% -) 1 drop OU TID [facility] Last Admin: 09/27/17 09:52 Dose: 1 drop Chlorthalidone (Hygroton -) 100 mg PO DAILY [facility] Last Admin: 09/27/17 09:54 Dose: 75 mg Clopidogrel Bisulfate (Plavix -) 75 mg PO DAILY [facility] Last Admin: 09/27/17 09:51 Dose: 75 mg Collagenase (Santyl -) 1 applic TP DAILY [facility] Docusate Sodium (Colace -) 200 mg PO DAILY [facility] Last Admin: 09/27/17 09:52 Dose: 200 mg Ethacrynic Acid (Edecrin -) 75 mg PO BID [facility] Last Admin: 09/27/17 09:53 Dose: 75 mg Fentanyl (Sublimaze Injection -) 25 mcg IVPUSH [id number] PRN PRN Reason: PAIN-PACU ORDER X 4 DOSES ONLY Last Admin: 09/26/17 13:00 Dose: 25 mcg Ferrous Sulfate (Feosol -) 325 mg PO DAILY@0800 [facility] Last Admin: 09/27/17 09:53 Dose: Not Given Folic Acid (Folic Acid -) 1 mg PO DAILY [facility] Last Admin: 09/27/17 09:51 Dose: 1 mg Gabapentin (Neurontin -) 600 mg PO TID [facility] Last Admin: 09/26/17 21:44 Dose: 600 mg Hydralazine HCl (Apresoline -) 75 mg PO TID [facility] Last Admin: 09/26/17 21:45 Dose: 75 mg Sodium Chloride (Normal Saline -) 250 mls @ 3,000 mls/hr IV PRN PRN PRN Reason: Hypotension during Dialysis Stop: 09/27/17 18:57 Insulin Aspart (Novolog Vial Sliding Scale -) 1 vial SQ TIDAC [facility]; Protocol Insulin Detemir (Levemir Vial) 95 units SQ AM [facility] Lactic Acid (Lac-Hydrin 12) 1 applic TP BID PRN PRN Reason: xerosis Metoprolol Tartrate (Lopressor -) 25 mg PO BID [facility] Last Admin: 09/27/17 09:51 Dose: 25 mg Non-Formulary Medication (Brinzolamide [Azopt]) 1 drop OU TID [facility] Nystatin (Nystop Powder -) 1 applic TP DAILY [facility] Ofloxacin (Ocuflox 0.3% Eye Drops -) 1 drop OU TID [facility] Last Admin: 09/26/17 21:53 Dose: 1 drop Ondansetron HCl (Zofran Injection) 4 mg IVPUSH Q8H PRN PRN Reason: NAUSEA Oxycodone HCl (Roxicodone -) 5 mg PO Q6H PRN PRN Reason: PAIN LEVEL 1-5 Last Admin: 09/26/17 21:45 Dose: 5 mg Polyethylene Glycol (Miralax (For Daily Use) -) 17 gm PO BID [facility] Last Admin: 09/26/17 21:52 Dose: 17 grams Ranitidine HCl (Zantac -) 150 mg PO DAILY [facility] Last Admin: 09/27/17 09:51 Dose: 150 mg - Objective Vital Signs: Vital Signs Temperature 97.8 F 09/26/17 22:00 Pulse Rate 79 09/26/17 22:00 Respiratory Rate 18 09/26/17 22:00 Blood Pressure 167/82 09/26/17 22:00 O2 Sat by Pulse Oximetry (%) 97 09/26/17 21:00 Constitutional: Yes: Calm Eyes: Yes: Conjunctiva Clear HENT: Yes: Atraumatic Neck: Yes: Supple Cardiovascular: Yes: S1, S2 Respiratory: Yes: On Nasal O2 Gastrointestinal: Yes: Soft Genitourinary: Yes: WNL Edema: Yes Edema: LUE: Trace, RUE: Trace, LLE: Trace, RLE: Trace Neurological: Yes: Oriented Psychiatric: Yes: Oriented Labs: CBC, BMP 09/27/17 07:10 09/27/17 06:45 INR, PTT INR 1.35 (0.82-1.09) H D 09/21/17 05:40 Problem List - Problems (1) Acute on chronic kidney failure Code(s): N17.9 - ACUTE KIDNEY FAILURE, UNSPECIFIED; N18.9 - CHRONIC KIDNEY DISEASE, UNSPECIFIED (2) CHF (congestive heart failure) Code(s): I50.9 - HEART FAILURE, UNSPECIFIED (3) Diabetes Code(s): E11.9 - TYPE 2 DIABETES MELLITUS WITHOUT COMPLICATIONS (4) HTN (hypertension) Code(s): I10 - ESSENTIAL (PRIMARY) HYPERTENSION Assessment/Plan Current Medications Generic Name Dose Route Start Last Admin Trade Name Freq PRN Reason Stop Dose Admin Acetaminophen 650 mg 09/26/17 12:49 Tylenol - PO Q4H PRN FEVER Amlodipine Besylate 10 mg 09/27/17 10:00 09/27/17 09:51 Norvasc - PO 10 mg DAILY [facility] Administration Aspirin 81 mg 09/27/17 10:00 09/27/17 09:51 Ecotrin - PO 81 mg DAILY [facility] Administration Atorvastatin Calcium 10 mg 09/26/17 22:00 09/26/17 21:44 Lipitor - PO 10 mg HS [facility] Administration Bisacodyl 10 mg 09/26/17 12:49 Dulcolax Suppository - RC DAILY PRN CONSTIPATION Brimonidine Tartrate 1 drop 09/26/17 14:00 09/27/17 09:52 Alphagan P 0.1% - OU 1 drop TID [facility] Administration Chlorthalidone 100 mg 09/27/17 10:00 09/27/17 09:54 Hygroton - PO 75 mg DAILY [facility] Administration Clopidogrel Bisulfate 75 mg 09/27/17 10:00 09/27/17 09:51 Plavix - PO 75 mg DAILY [facility] Administration Collagenase 1 applic 09/27/17 10:00 Santyl - TP DAILY [facility] Docusate Sodium 200 mg 09/27/17 10:00 09/27/17 09:52 Colace - PO 200 mg DAILY [facility] Administration Ethacrynic Acid 75 mg 09/26/17 22:00 09/27/17 09:53 Edecrin - PO 75 mg BID [facility] Administration Fentanyl 25 mcg 09/26/17 12:57 09/26/17 13:00 Sublimaze Injection - IVPUSH 25 mcg [id number] PRN Administration PAIN-PACU ORDER X 4 DOSES ONLY Ferrous Sulfate 325 mg 09/27/17 08:00 09/27/17 09:53 Feosol - PO Not Given DAILY@0800 [facility] Folic Acid 1 mg 09/27/17 10:00 09/27/17 09:51 Folic Acid - PO 1 mg DAILY [facility] Administration Gabapentin 600 mg 09/26/17 14:00 09/26/17 21:44 Neurontin - PO 600 mg TID [facility] Administration Hydralazine HCl 75 mg 09/26/17 14:00 09/26/17 21:45 Apresoline - PO 75 mg TID [facility] Administration Sodium Chloride 250 mls @ 3,000 mls/hr 09/26/17 18:58 Normal Saline - IV 09/27/17 18:57 PRN PRN Hypotension during Dialysis Insulin Aspart 1 vial 09/26/17 16:30 Novolog Vial Sliding Scale - SQ TIDAC [facility] Protocol Insulin Detemir 95 units 09/27/17 07:00 Levemir Vial SQ AM [facility] Lactic Acid 1 applic 09/26/17 12:49 Lac-Hydrin 12 TP BID PRN xerosis Metoprolol Tartrate 25 mg 09/26/17 22:00 09/27/17 09:51 Lopressor - PO 25 mg BID [facility] Administration Non-Formulary Medication 1 drop 09/26/17 14:00 Brinzolamide [Azopt] OU TID [facility] Nystatin 1 applic 09/27/17 10:00 Nystop Powder - TP DAILY [facility] Ofloxacin 1 drop 09/26/17 14:00 09/26/17 21:53 Ocuflox 0.3% Eye Drops - OU 1 drop TID [facility] Administration Ondansetron HCl 4 mg 09/26/17 12:49 Zofran Injection IVPUSH Q8H PRN NAUSEA Oxycodone HCl 5 mg 09/26/17 12:49 09/26/17 21:45 Roxicodone - PO 5 mg Q6H PRN Administration PAIN LEVEL 1-5 Polyethylene Glycol 17 gm 09/26/17 22:00 09/26/17 21:52 Miralax (For Daily Use) - PO 17 grams BID [facility] Administration Ranitidine HCl 150 mg 09/27/17 10:00 09/27/17 09:51 Zantac - PO 150 mg DAILY [facility] Administration Laboratory Tests 09/16/17 09/16/17 09/26/17 06:30 06:30 07:09 Hgb 8.1 L Iron 11 L TIBC 127 L Iron Saturation 9 L Ferritin 321.787 H Impression 1. CKD 2. DM 3. cervical spine disease 4. HTN 5. CHF 6. obesity 7. anemia 8. DOMINIK 9. HLD 10. volume overload 11. s/p c2 to t2 decompression and fusion Plan - HD in am - pt going for vein mapping - epogen for anemia - will give venofer - will follow
[2017-09-27] MEDS: INSULIN SLIDING SCALE (NOVOLOG) 1 VIAL SQ SCH ×2 (14:41→18:02)
[2017-09-27] MEDS: OFLOXACIN 0.3% OPHTHALMIC SOLUTION 5 ML BOTTLE OU SCH ×2 (14:47→21:33)
[2017-09-27] MEDS: GABAPENTIN 300 MG CAPSULE (FP) PO SCH ×3 (14:47→21:31)
[2017-09-27] MEDS: COLLAGENASE CLOSTRIDIUM HIST. 30 GRAMS TUBE TP SCH (14:49)
[2017-09-27] MEDS: hydrALAZINE HCL 25 MG TABLET (FP) PO SCH ×2 (14:50→21:31)
[2017-09-27] MEDS: NYSTATIN POWDER 100,000 UNITS/GM - 15 GM TOPICAL POWDER TP SCH (14:50)
[2017-09-27] MEDS: POLYETHYLENE GLYCOL 3350 119 GM BTL PO SCH ×2 (14:50→21:57)
--- NOTE | 2017-09-27 15:39 | PROC ---
Procedure Note Procedure: Staple removal POD #16 multilevel cervical fusion. Surgical team asked by Dr Tinoco to remove letitia. Patient seen and examined at bedside with no new complaints. All Letitia removed and incision well healed with the exception of some superficial separation at the level of the crease which is not new. Pressure applied along the margins of the separation and no evidence of d/c or collection seen. Dermabond applied to the entire length of the incision and area dressed with dry dressing.
--- NOTE | 2017-09-27 17:55 | PN ---
Physical Exam: SUBJECTIVE: Patient seen and examined at the bedside. In no acute distress, denies pain. OBJECTIVE: Vital Signs Period Temp Pulse Resp BP Sys/Kauffman Pulse Ox Last 24 Hr 97.8 F-98.4 F 62-79 18-18 95-167/50-82 97-97 GENERAL: The patient is awake, alert, and fully oriented, in no acute distress. HEAD: Normal with no signs of trauma, on c llar EYES: PERRL, extraocular movements intact, sclera anicteric, conjunctiva clear. No ptosis. ENT: Ears normal, nares patent, oropharynx clear without exudates, moist mucous membranes. NECK: on c collar LUNGS: Breath sounds equal, diminished anteriorly HEART: Regular rate and rhythm ABDOMEN: Soft, nontender, nondistended, normoactive bowel sounds, no guarding, no rebound, no hepatosplenomegaly, no masses. EXTREMITIES: 2+ pulses, warm, well-perfused, no edema. PSYCH: Normal mood, normal affect. SKIN: Warm, dry, normal turgor, no rashes or lesions noted Laboratory Results - last 24 hr 09/27/17 09/27/17 09/27/17 06:28 06:45 07:10 WBC 11.9 H RBC 2.98 L Hgb 8.0 L Hct 24.6 L MCV 82.7 MCH 26.9 MCHC 32.5 RDW 15.3 Plt Count 612 H MPV 7.8 Absolute Neuts (auto) 9.1 Neutrophils % 75.9 Lymphocytes % 10.1 Monocytes % 10.5 H Eosinophils % 2.8 Basophils % 0.7 Nucleated RBC % 0 Sodium 137 Potassium 4.5 Chloride 98 Carbon Dioxide 28 D Anion Gap 11 BUN 48 H D Creatinine 3.4 H POC Glucometer 112 Random Glucose 111 H Calcium 8.3 L Active Medications Generic Name Dose Route Start Last Admin Trade Name Freq PRN Reason Stop Dose Admin Acetaminophen 650 mg 09/26/17 12:49 Tylenol - PO Q4H PRN FEVER Amlodipine Besylate 10 mg 09/27/17 10:00 09/27/17 09:51 Norvasc - PO 10 mg DAILY [facility] Administration Aspirin 81 mg 09/27/17 10:00 09/27/17 09:51 Ecotrin - PO 81 mg DAILY [facility] Administration Atorvastatin Calcium 10 mg 09/26/17 22:00 09/26/17 21:44 Lipitor - PO 10 mg HS [facility] Administration Bisacodyl 10 mg 09/26/17 12:49 Dulcolax Suppository - RC DAILY PRN CONSTIPATION Brimonidine Tartrate 1 drop 09/26/17 14:00 09/27/17 14:48 Alphagan P 0.1% - OU 1 drop TID [facility] Administration Chlorthalidone 100 mg 09/27/17 10:00 09/27/17 09:54 Hygroton - PO 75 mg DAILY [facility] Administration Clopidogrel Bisulfate 75 mg 09/27/17 10:00 09/27/17 09:51 Plavix - PO 75 mg DAILY [facility] Administration Collagenase 1 applic 09/27/17 10:00 09/27/17 14:49 Santyl - TP 1 applic DAILY [facility] Administration Docusate Sodium 200 mg 09/27/17 10:00 09/27/17 09:52 Colace - PO 200 mg DAILY [facility] Administration Epoetin Michael 4,000 unit 09/28/17 14:20 Epogen - IVPUSH 09/28/17 14:21 ONCE ONE Ethacrynic Acid 75 mg 09/26/17 22:00 09/27/17 09:53 Edecrin - PO 75 mg BID [facility] Administration Fentanyl 25 mcg 09/26/17 12:57 09/26/17 13:00 Sublimaze Injection - IVPUSH 25 mcg [id number] PRN Administration PAIN-PACU ORDER X 4 DOSES ONLY Ferrous Sulfate 325 mg 09/27/17 08:00 09/27/17 09:53 Feosol - PO Not Given DAILY@0800 [facility] Folic Acid 1 mg 09/27/17 10:00 09/27/17 09:51 Folic Acid - PO 1 mg DAILY [facility] Administration Gabapentin 600 mg 09/26/17 14:00 09/27/17 14:47 Neurontin - PO 600 mg TID [facility] Administration Hydralazine HCl 75 mg 09/26/17 14:00 09/27/17 14:50 Apresoline - PO 75 mg TID [facility] Administration Sodium Chloride 250 mls @ 3,000 mls/hr 09/26/17 18:58 Normal Saline - IV 09/27/17 18:57 PRN PRN Hypotension during Dialysis Sodium Chloride 250 mls @ 3,000 mls/hr 09/27/17 14:20 Normal Saline - IV 09/28/17 14:20 PRN PRN Hypotension during Dialysis Iron Sucrose 100 mg/ Sodium 100 mls @ 200 mls/hr 09/28/17 14:20 Chloride IVPB 09/28/17 14:49 ONCE ONE Insulin Aspart 1 vial 09/26/17 16:30 09/27/17 14:41 Novolog Vial Sliding Scale - SQ Not Given TIDAC [facility] Protocol Insulin Detemir 95 units 09/27/17 07:00 Levemir Vial SQ AM [facility] Lactic Acid 1 applic 09/26/17 12:49 Lac-Hydrin 12 TP BID PRN xerosis Metoprolol Tartrate 25 mg 09/26/17 22:00 09/27/17 09:51 Lopressor - PO 25 mg BID [facility] Administration Non-Formulary Medication 1 drop 09/26/17 14:00 Brinzolamide [Azopt] OU TID [facility] Nystatin 1 applic 09/27/17 10:00 09/27/17 14:50 Nystop Powder - TP 1 applic DAILY [facility] Administration Ofloxacin 1 drop 09/26/17 14:00 09/27/17 14:47 Ocuflox 0.3% Eye Drops - OU 1 drop TID [facility] Administration Ondansetron HCl 4 mg 09/26/17 12:49 Zofran Injection IVPUSH Q8H PRN NAUSEA Oxycodone HCl 5 mg 09/26/17 12:49 09/26/17 21:45 Roxicodone - PO 5 mg Q6H PRN Administration PAIN LEVEL 1-5 Polyethylene Glycol 17 gm 09/26/17 22:00 09/27/17 14:50 Miralax (For Daily Use) - PO Not Given BID [facility] Ranitidine HCl 150 mg 09/27/17 10:00 09/27/17 09:51 Zantac - PO 150 mg DAILY [facility] Administration ASSESSMENT/PLAN: Patient is a 67 year old male with a significant past medical history of hypertension, dm, hyperlipidemia, obesity, sleep apnea, CKD, s/p RCA stent , s/p TAVR on 07/04/13, wheelchair bound, cardiac cath 06/17/13. He is s/p C2- T12 laminectomy and C7-T1 osteotomies, deformity correction and C2-T2 posterior fusion on 09/11. Renal CKD, right permacath placed Dialysis in a.m. Monitor renal fx with daily labs Renal following Joshua in place with min. scant amt of bleeding in insertion site, urine yellow and clear Monitor Surgery: S/p C2-T12 laminectomy and C7-T1 osteotomies, deformity correction and C2-T2 posterior fusion on 09/11 On C collar, surgery following Vascular: Left big toe wound Santyl daily, wound care WC with staph aureus Card: CAD, chronic on dual therapy Hypertension, controlled On Norvasc, Hydralazine Endocrine: Diabetes BGMs, SS, Levemir Pulm: Sleep apnea, chronic. On bipap Prophylaxis: SCDs Visit type - Emergency Visit Emergency Visit: Yes ED Registration Date: 09/11/17 Care time: The patient presented to the Emergency Department on the above date and was hospitalized for further evaluation of their emergent condition. - New Patient This patient is new to me today: Yes Date on this admission: 09/27/17 - Critical Care Critical Care patient: No - Discharge Referral Referred to [facility] Med P.C.: No
[2017-09-27] MEDS: ATORVASTATIN CA 10 MG TABLET (FP) PO SCH (21:31)
--- NOTE | 2017-09-27 23:55 | PN ---
Progress Note (short form) - Note Progress Note: FUV left big toe. Patient alert earlier today. wbc=11.9, +eschar, -cellulitis, -drainage, grade 1 ulceration Heel pads b/l. continue Santyl daily to left big toe. Ammonium lactate BID to exposed lower extremities. Will follow.
[2017-09-28] MEDS ORDERED: LIDOCAINE HCL 2% JELLY (30 ML/TUBE) TP ONE (01:22)
[2017-09-28] MEDS: INSULIN SLIDING SCALE (NOVOLOG) 1 VIAL SQ SCH ×3 (06:21→17:49)
[2017-09-28] MEDS ORDERED: PT OWN MED DRAWER 7, Y5N ONE ×4 (06:35→22:20)
[2017-09-28] MEDS: GABAPENTIN 300 MG CAPSULE (FP) PO SCH ×3 (06:40→22:23)
[2017-09-28] MEDS: hydrALAZINE HCL 25 MG TABLET (FP) PO SCH ×3 (06:40→22:23)
[2017-09-28] MEDS: OFLOXACIN 0.3% OPHTHALMIC SOLUTION 5 ML BOTTLE OU SCH ×3 (06:40→22:31)
[2017-09-28] MEDS: INSULIN (LEVEMIR) 100 UNITS/ML UNITS SQ SCH (06:40)
[2017-09-28] MEDS: BRIMONIDINE TARTRATE 0.1% OPHTHALMIC 5 ML BOTTLE OU SCH ×3 (06:40→22:30)
[2017-09-28] MEDS: FERROUS SO4 325 MG TABLET (FP) PO SCH (08:21)
--- NOTE | 2017-09-28 10:10 | PN ---
Physical Exam: SUBJECTIVE: Patient seen and examined. He appears improved today, less anxious, throat pain d/t numerous medications. c/o penial pain, wants zimmerman removed OBJECTIVE: Vital Signs Period Temp Pulse Resp BP Sys/Kauffman Pulse Ox Last 24 Hr 98.0 F-98.4 F 57-64 18-18 95-150/50-59 97-99 PE Neuro: alert, awake, c collar in place Pulm: Clear anteriorly CV: s1 s2 rrr no mrg Abd: obese abd, soft + bc Zimmerman: yellow clear urine, silvestre red blood uretheral glans Ext: warm, L foot wound, 2nd toe dried wound , no le edema + DP pulse Laboratory Results - last 24 hr 09/27/17 09/27/17 09/28/17 06:45 18:01 05:52 Sodium 137 Potassium 4.5 Chloride 98 Carbon Dioxide 28 D Anion Gap 11 BUN 48 H D Creatinine 3.4 H POC Glucometer 138 110 Random Glucose 111 H Calcium 8.3 L Active Medications Generic Name Dose Route Start Last Admin Trade Name Dannyq PRN Reason Stop Dose Admin Acetaminophen 650 mg 09/26/17 12:49 Tylenol - PO Q4H PRN FEVER Amlodipine Besylate 10 mg 09/27/17 10:00 09/27/17 09:51 Norvasc - PO 10 mg DAILY [facility] Administration Aspirin 81 mg 09/27/17 10:00 09/27/17 09:51 Ecotrin - PO 81 mg DAILY [facility] Administration Atorvastatin Calcium 10 mg 09/26/17 22:00 09/27/17 21:31 Lipitor - PO 10 mg HS [facility] Administration Bisacodyl 10 mg 09/26/17 12:49 Dulcolax Suppository - RC DAILY PRN CONSTIPATION Brimonidine Tartrate 1 drop 09/26/17 14:00 09/28/17 06:40 Alphagan P 0.1% - OU 1 drop TID [facility] Administration Chlorthalidone 100 mg 09/27/17 10:00 09/27/17 09:54 Hygroton - PO 75 mg DAILY [facility] Administration Clopidogrel Bisulfate 75 mg 09/27/17 10:00 09/27/17 09:51 Plavix - PO 75 mg DAILY [facility] Administration Collagenase 1 applic 09/27/17 10:00 09/27/17 14:49 Santyl - TP 1 applic DAILY [facility] Administration Docusate Sodium 200 mg 09/27/17 10:00 09/27/17 09:52 Colace - PO 200 mg DAILY [facility] Administration Epoetin Michael 4,000 unit 09/28/17 10:30 Epogen - IVPUSH 09/28/17 10:31 ONCE ONE Ethacrynic Acid 75 mg 09/26/17 22:00 09/27/17 21:34 Edecrin - PO 75 mg BID [facility] Administration Fentanyl 25 mcg 09/26/17 12:57 09/26/17 13:00 Sublimaze Injection - IVPUSH 25 mcg [id number] PRN Administration PAIN-PACU ORDER X 4 DOSES ONLY Ferrous Sulfate 325 mg 09/27/17 08:00 09/28/17 08:21 Feosol - PO 325 mg DAILY@0800 [facility] Administration Folic Acid 1 mg 09/27/17 10:00 09/27/17 09:51 Folic Acid - PO 1 mg DAILY [facility] Administration Gabapentin 600 mg 09/26/17 14:00 09/28/17 06:40 Neurontin - PO 600 mg TID [facility] Administration Hydralazine HCl 75 mg 09/26/17 14:00 09/28/17 06:40 Apresoline - PO 75 mg TID [facility] Administration Iron Sucrose 100 mg/ Sodium 100 mls @ 200 mls/hr 09/28/17 10:30 Chloride IVPB 09/28/17 10:59 ONCE ONE Insulin Aspart 1 vial 09/26/17 16:30 09/28/17 06:21 Novolog Vial Sliding Scale - SQ Not Given TIDAC [facility] Protocol Insulin Detemir 95 units 09/27/17 07:00 09/28/17 06:40 Levemir Vial SQ 95 units AM [facility] Administration Lactic Acid 1 applic 09/26/17 12:49 Lac-Hydrin 12 TP BID PRN xerosis Metoprolol Tartrate 25 mg 09/26/17 22:00 09/27/17 21:31 Lopressor - PO 25 mg BID [facility] Administration Non-Formulary Medication 1 drop 09/26/17 14:00 Brinzolamide [Azopt] OU TID [facility] Nystatin 1 applic 09/27/17 10:00 09/27/17 14:50 Nystop Powder - TP 1 applic DAILY [facility] Administration Ofloxacin 1 drop 09/26/17 14:00 09/28/17 06:40 Ocuflox 0.3% Eye Drops - OU 1 drop TID [facility] Administration Ondansetron HCl 4 mg 09/26/17 12:49 Zofran Injection IVPUSH Q8H PRN NAUSEA Oxycodone HCl 5 mg 09/26/17 12:49 09/26/17 21:45 Roxicodone - PO 5 mg Q6H PRN Administration PAIN LEVEL 1-5 Polyethylene Glycol 17 gm 09/26/17 22:00 09/27/17 21:57 Miralax (For Daily Use) - PO Not Given BID [facility] Ranitidine HCl 150 mg 09/27/17 10:00 09/27/17 09:51 Zantac - PO 150 mg DAILY [facility] Administration Imaging: - Renal ultrasound: morphologically normal kidneys with no evidence of hydronephrosis or acute pathology Assessment: 67 year old male with PMHx of HTN, DM, hyperlipidemia, obesity, sleep apnea, CKD, s/p RCA stent 05/30/10, s/p TAVR on 07/04/13, wheelchair bound, cardiac cath 06/17/13, who is s/p C2-T12 laminectomy and C7-T1 osteotomies, deformity correction and C2-T2 posterior fusion on 09/11. Hospital Course c/b worsening HD requiring HD, started 09/26. Plan: 1. 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 Fever - Resolved - Maintain clindamycin 300mg tid x 10 days (day 5) per ID 3. S/p C2-T12 laminectomy and C7-T1 osteotomies, deformity correction and C2-T2 posterior fusion on 09/11 - Mariella removed yesterday, dermabond in place - C-collar in place (continue 23/24 hours a day) - Neuro surgery seeing 4. Left big toe wound - Staph aureus from wound culture - Ammonia lactate bid - Santyl daily to left big toe - Heel pads bilaterally 5. CAD - Continue ASA - Continue Plavix 6. HTN - Continue Norvasc - Continue Hydralazine 7. DM II - BGM, ISS ACHS - Continue Levemir 95u sq AM 8. Sleep apnea - Bipap 9. DVT ppx - Heparin sq Visit type - Emergency Visit Emergency Visit: Yes ED Registration Date: 09/11/17 Care time: The patient presented to the Emergency Department on the above date and was hospitalized for further evaluation of their emergent condition. - New Patient This patient is new to me today: No - Critical Care Critical Care patient: No
[2017-09-28] MEDS ORDERED: IRON SUCROSE INJECTION 100 MG in SODIUM CHLORIDE 95 ML IVPB ONE (10:30)
[2017-09-28] MEDS ORDERED: EPOETIN ALFA 2,000 UNIT/1 ML VIAL IVPUSH ONE (10:30)
--- NOTE | 2017-09-28 11:03 | PN ---
Progress Note (short form) - Note Progress Note: seen on dialysis Current Medications Acetaminophen (Tylenol -) 650 mg PO Q4H PRN PRN Reason: FEVER Amlodipine Besylate (Norvasc -) 10 mg PO DAILY [facility] Last Admin: 09/28/17 14:17 Dose: 10 mg Aspirin (Ecotrin -) 81 mg PO DAILY [facility] Last Admin: 09/28/17 14:17 Dose: 81 mg Atorvastatin Calcium (Lipitor -) 10 mg PO HS [facility] Last Admin: 09/27/17 21:31 Dose: 10 mg Bisacodyl (Dulcolax Suppository -) 10 mg RC DAILY PRN PRN Reason: CONSTIPATION Brimonidine Tartrate (Alphagan P 0.1% -) 1 drop OU TID [facility] Last Admin: 09/28/17 14:27 Dose: 1 drop Chlorthalidone (Hygroton -) 100 mg PO DAILY [facility] Last Admin: 09/28/17 14:22 Dose: 100 mg Clopidogrel Bisulfate (Plavix -) 75 mg PO DAILY [facility] Last Admin: 09/28/17 14:17 Dose: 75 mg Collagenase (Santyl -) 1 applic TP DAILY [facility] Last Admin: 09/28/17 14:25 Dose: 1 applic Docusate Sodium (Colace -) 200 mg PO DAILY [facility] Last Admin: 09/28/17 14:26 Dose: 200 mg Ethacrynic Acid (Edecrin -) 75 mg PO BID [facility] Last Admin: 09/28/17 14:21 Dose: 75 mg Ferrous Sulfate (Feosol -) 325 mg PO DAILY@0800 [facility] Last Admin: 09/28/17 08:21 Dose: 325 mg Folic Acid (Folic Acid -) 1 mg PO DAILY [facility] Last Admin: 09/28/17 14:17 Dose: 1 mg Gabapentin (Neurontin -) 600 mg PO TID [facility] Last Admin: 09/28/17 14:17 Dose: 600 mg Heparin Sodium (Porcine) (Heparin -) 5,000 unit SQ TID [facility] Last Admin: 09/28/17 14:25 Dose: 5,000 unit Hydralazine HCl (Apresoline -) 75 mg PO TID [facility] Last Admin: 09/28/17 14:19 Dose: 75 mg Insulin Aspart (Novolog Vial Sliding Scale -) 1 vial SQ TIDAC [facility]; Protocol Last Admin: 09/28/17 17:49 Dose: 4 units Insulin Detemir (Levemir Vial) 95 units SQ AM [facility] Last Admin: 09/28/17 06:40 Dose: 95 units Lactic Acid (Lac-Hydrin 12) 1 applic TP BID PRN PRN Reason: xerosis Metoprolol Tartrate (Lopressor -) 25 mg PO BID [facility] Last Admin: 09/28/17 14:46 Dose: 25 mg Nystatin (Nystop Powder -) 1 applic TP DAILY [facility] Last Admin: 09/28/17 14:25 Dose: 1 applic Ofloxacin (Ocuflox 0.3% Eye Drops -) 1 drop OU TID [facility] Last Admin: 09/28/17 14:20 Dose: 1 drop Ondansetron HCl (Zofran Injection) 4 mg IVPUSH Q8H PRN PRN Reason: NAUSEA Oxycodone HCl (Roxicodone -) 5 mg PO Q6H PRN PRN Reason: PAIN LEVEL 1-5 Last Admin: 09/26/17 21:45 Dose: 5 mg Polyethylene Glycol (Miralax (For Daily Use) -) 17 gm PO BID [facility] Last Admin: 09/28/17 14:22 Dose: Not Given Ranitidine HCl (Zantac -) 150 mg PO DAILY [facility] Last Admin: 09/28/17 14:17 Dose: 150 mg no complaints Last Vital Signs Temp Pulse Resp BP Pulse Ox 98.0 F 57 L 18 116/53 97 09/28/17 06:00 09/28/17 06:00 09/28/17 06:00 09/28/17 06:00 09/28/17 02:36 lungs clear heart reg abd soft ext no edema CBC, BMP 09/28/17 10:15 09/28/17 10:15 Plan- uneventful hd maintenance hd next week
[2017-09-28 11:38] LABS: BASO % 0.9 % (0-2.0); EOS % 3.3 % (0-4.5); HEMATOCRIT 23.2 % (35.4-49); HEMOGLOBIN 7.4 GM/dL (11.7-16.9); LYMPH % 8.7 % (8-40); MCH 26.8 pg (25.7-33.7); MEAN CELL VOLUME 83.7 fl (80-96); MEAN PLT VOLUME 8.1 fl (7.5-11.1); MONO % 11.7 % (3.8-10.2); NEUT % 75.4 % (42.8-82.8); PLATELET COUNT 556 K/MM3 (134-434); RBC 2.77 M/mm3 (4.00-5.60); RDW 15.6 % (11.9-15.9)
[2017-09-28 12:34] LABS: CHLORIDE 96 mmol/L (98-107); POTASSIUM 4.4 mmol/L (3.5-5.1); SODIUM 134 mmol/L (136-145)
[2017-09-28 12:44] LABS: ALBUMIN 2.3 g/dl (3.4-5.0); ALK PHOS 103 U/L (45-117); ANION GAP 9 (8-16); BILIRUBIN,TOTAL 0.3 mg/dL (0.2-1.0); BLOOD UREA NITROGEN 57 mg/dL (7-18); CALCIUM 8.3 mg/dL (8.5-10.1); CO2 29 mmol/L (21-32); CREATININE 4.3 mg/dL (0.7-1.3); GLUCOSE,RANDOM 149 mg/dL (74-106); SGOT/AST 21 U/L (15-37); SGPT/ALT 18 U/L (12-78); TOT PROT 6.4 g/dl (6.4-8.2)
[2017-09-28] MEDS: FOLIC ACID 1 MG TABLET (FP) PO SCH (14:17)
[2017-09-28] MEDS: CLOPIDOGREL BISULFATE 75 MG TABLET (FP) PO SCH (14:17)
[2017-09-28] MEDS: ASPIRIN COATED 81 MG TABLET.EC PO SCH (14:17)
[2017-09-28] MEDS: RANITIDINE HCL 150 MG TABLET (FP) PO SCH (14:17)
[2017-09-28] MEDS: amLODIPine BESYLATE 10 MG TABLET (FP) PO SCH (14:17)
[2017-09-28] MEDS: ETHACRYNIC ACID 25 MG TABLET PO SCH ×2 (14:21→22:29)
[2017-09-28] MEDS: CHLORTHALIDONE 25 MG TABLET PO SCH (14:22)
[2017-09-28] MEDS: POLYETHYLENE GLYCOL 3350 119 GM BTL PO SCH ×2 (14:22→22:31)
[2017-09-28] MEDS: NYSTATIN POWDER 100,000 UNITS/GM - 15 GM TOPICAL POWDER TP SCH (14:25)
[2017-09-28] MEDS: HEPARIN NA (PORCINE) 5,000 UNITS/ML 1ML VIAL SQ SCH ×2 (14:25→22:30)
[2017-09-28] MEDS: COLLAGENASE CLOSTRIDIUM HIST. 30 GRAMS TUBE TP SCH (14:25)
[2017-09-28] MEDS: DOCUSATE SODIUM 100 MG CAPSULE (FP) PO SCH (14:26)
[2017-09-28] MEDS: METOPROLOL TARTRATE 25 MG TABLET (FP) PO SCH ×2 (14:46→22:24)
[2017-09-28] MEDS: ATORVASTATIN CA 10 MG TABLET (FP) PO SCH (22:24)
[2017-09-29] MEDS: hydrALAZINE HCL 25 MG TABLET (FP) PO SCH ×4 (06:00→21:44)
[2017-09-29] MEDS: GABAPENTIN 300 MG CAPSULE (FP) PO SCH ×3 (06:00→21:41)
[2017-09-29] MEDS: HEPARIN NA (PORCINE) 5,000 UNITS/ML 1ML VIAL SQ SCH ×3 (06:01→21:45)
[2017-09-29] MEDS: BRIMONIDINE TARTRATE 0.1% OPHTHALMIC 5 ML BOTTLE OU SCH ×3 (06:01→21:48)
[2017-09-29] MEDS: INSULIN SLIDING SCALE (NOVOLOG) 1 VIAL SQ SCH ×5 (06:37→17:21)
[2017-09-29] MEDS: INSULIN (LEVEMIR) 100 UNITS/ML UNITS SQ SCH (06:38)
[2017-09-29] MEDS: OFLOXACIN 0.3% OPHTHALMIC SOLUTION 5 ML BOTTLE OU SCH ×3 (07:38→21:49)
--- NOTE | 2017-09-29 08:35 | PN ---
Progress Note, Physician History of Present Illness: stable being dialysed says he is doing well no issues - Current Medication List Current Medications: Active Medications Acetaminophen (Tylenol -) 650 mg PO Q4H PRN PRN Reason: FEVER Amlodipine Besylate (Norvasc -) 10 mg PO DAILY [facility] Last Admin: 09/28/17 14:17 Dose: 10 mg Aspirin (Ecotrin -) 81 mg PO DAILY [facility] Last Admin: 09/28/17 14:17 Dose: 81 mg Atorvastatin Calcium (Lipitor -) 10 mg PO HS [facility] Last Admin: 09/28/17 22:24 Dose: 10 mg Bisacodyl (Dulcolax Suppository -) 10 mg RC DAILY PRN PRN Reason: CONSTIPATION Brimonidine Tartrate (Alphagan P 0.1% -) 1 drop OU TID [facility] Last Admin: 09/29/17 06:01 Dose: 1 drop Chlorthalidone (Hygroton -) 100 mg PO DAILY [facility] Last Admin: 09/28/17 14:22 Dose: 100 mg Clopidogrel Bisulfate (Plavix -) 75 mg PO DAILY [facility] Last Admin: 09/28/17 14:17 Dose: 75 mg Collagenase (Santyl -) 1 applic TP DAILY [facility] Last Admin: 09/28/17 14:25 Dose: 1 applic Docusate Sodium (Colace -) 200 mg PO DAILY [facility] Last Admin: 09/28/17 14:26 Dose: 200 mg Ethacrynic Acid (Edecrin -) 75 mg PO BID [facility] Last Admin: 09/28/17 22:29 Dose: 75 mg Ferrous Sulfate (Feosol -) 325 mg PO DAILY@0800 [facility] Last Admin: 09/28/17 08:21 Dose: 325 mg Folic Acid (Folic Acid -) 1 mg PO DAILY [facility] Last Admin: 09/28/17 14:17 Dose: 1 mg Gabapentin (Neurontin -) 600 mg PO TID [facility] Last Admin: 09/29/17 06:00 Dose: 600 mg Heparin Sodium (Porcine) (Heparin -) 5,000 unit SQ TID [facility] Last Admin: 09/29/17 06:01 Dose: 5,000 unit Hydralazine HCl (Apresoline -) 75 mg PO TID [facility] Last Admin: 09/29/17 06:00 Dose: 75 mg Insulin Aspart ([facility] Vial Sliding Scale -) [facility] Last Admin: 09/29/17 06:37 Dose: Not Given Insulin Detemir (Levemir Vial) 95 units SQ AM [facility] Last Admin: 09/29/17 06:38 Dose: 95 units Lactic Acid (Lac-Hydrin 12) 1 applic TP BID PRN PRN Reason: xerosis Metoprolol Tartrate (Lopressor -) 25 mg PO BID [facility] Last Admin: 09/28/17 22:24 Dose: 25 mg Nystatin (Nystop Powder -) 1 applic TP DAILY [facility] Last Admin: 09/28/17 14:25 Dose: 1 applic Ofloxacin (Ocuflox 0.3% Eye Drops -) 1 drop OU TID [facility] Last Admin: 09/29/17 07:38 Dose: 1 drop Ondansetron HCl (Zofran Injection) 4 mg IVPUSH Q8H PRN PRN Reason: NAUSEA Oxycodone HCl (Roxicodone -) 5 mg PO Q6H PRN PRN Reason: PAIN LEVEL 1-5 Last Admin: 09/26/17 21:45 Dose: 5 mg Polyethylene Glycol (Miralax (For Daily Use) -) 17 gm PO BID [facility] Last Admin: 09/28/17 22:31 Dose: Not Given Ranitidine HCl (Zantac -) 150 mg PO DAILY [facility] Last Admin: 09/28/17 14:17 Dose: 150 mg - Objective Vital Signs: Vital Signs Temperature 98.5 F 09/29/17 06:00 Pulse Rate 68 09/29/17 06:00 Respiratory Rate 20 09/29/17 06:00 Blood Pressure 140/62 09/29/17 06:00 O2 Sat by Pulse Oximetry (%) 97 09/28/17 21:00 Constitutional: Yes: No Distress, Calm Neck: Yes: Other (hard collar) Cardiovascular: Yes: Regular Rate and Rhythm Respiratory: Yes: Regular, CTA Bilaterally Gastrointestinal: Yes: Normal Bowel Sounds, Soft Musculoskeletal: Yes: WNL Extremities: Yes: Other Neurological: Yes: Alert, Oriented Psychiatric: Yes: Alert, Oriented Labs: CBC, BMP 09/28/17 10:15 09/28/17 10:15 INR, PTT INR 1.35 (0.82-1.09) H D 09/21/17 05:40 Assessment/Plan 67 yo male s/p exploration of spinal fusion, C2-T2 laminectomies and C7-T1 osteotomies, deformity correction and C2-T2 posterior fusion. r/o uti numbness leukocytosis Cervical Spinal Stenosis s/p C2-T2 Laminectomies/Posterior Fusions CAD Aortic Stenosis s/p AVR HTN DM CKD DOMINIK Toe Ulcer fever plan stable off of abx rest continue current mgmt patient stable dialysis
--- NOTE | 2017-09-29 08:37 | PN ---
Progress Note, Physician History of Present Illness: stable no complaints comfortable - Current Medication List Current Medications: Active Medications Acetaminophen (Tylenol -) 650 mg PO Q4H PRN PRN Reason: FEVER Amlodipine Besylate (Norvasc -) 10 mg PO DAILY [facility] Last Admin: 09/28/17 14:17 Dose: 10 mg Aspirin (Ecotrin -) 81 mg PO DAILY [facility] Last Admin: 09/28/17 14:17 Dose: 81 mg Atorvastatin Calcium (Lipitor -) 10 mg PO HS [facility] Last Admin: 09/28/17 22:24 Dose: 10 mg Bisacodyl (Dulcolax Suppository -) 10 mg RC DAILY PRN PRN Reason: CONSTIPATION Brimonidine Tartrate (Alphagan P 0.1% -) 1 drop OU TID [facility] Last Admin: 09/29/17 06:01 Dose: 1 drop Chlorthalidone (Hygroton -) 100 mg PO DAILY [facility] Last Admin: 09/28/17 14:22 Dose: 100 mg Clopidogrel Bisulfate (Plavix -) 75 mg PO DAILY [facility] Last Admin: 09/28/17 14:17 Dose: 75 mg Collagenase (Santyl -) 1 applic TP DAILY [facility] Last Admin: 09/28/17 14:25 Dose: 1 applic Docusate Sodium (Colace -) 200 mg PO DAILY [facility] Last Admin: 09/28/17 14:26 Dose: 200 mg Ethacrynic Acid (Edecrin -) 75 mg PO BID [facility] Last Admin: 09/28/17 22:29 Dose: 75 mg Ferrous Sulfate (Feosol -) 325 mg PO DAILY@0800 [facility] Last Admin: 09/28/17 08:21 Dose: 325 mg Folic Acid (Folic Acid -) 1 mg PO DAILY [facility] Last Admin: 09/28/17 14:17 Dose: 1 mg Gabapentin (Neurontin -) 600 mg PO TID [facility] Last Admin: 09/29/17 06:00 Dose: 600 mg Heparin Sodium (Porcine) (Heparin -) 5,000 unit SQ TID [facility] Last Admin: 09/29/17 06:01 Dose: 5,000 unit Hydralazine HCl (Apresoline -) 75 mg PO TID [facility] Last Admin: 09/29/17 06:00 Dose: 75 mg Insulin Aspart (Novolog Vial Sliding Scale -) 1 vial SQ TIDAC [facility]; Protocol Last Admin: 09/29/17 06:37 Dose: Not Given Insulin Detemir (Levemir Vial) 95 units SQ AM [facility] Last Admin: 09/29/17 06:38 Dose: 95 units Lactic Acid (Lac-Hydrin 12) 1 applic TP BID PRN PRN Reason: xerosis Metoprolol Tartrate (Lopressor -) 25 mg PO BID [facility] Last Admin: 09/28/17 22:24 Dose: 25 mg Nystatin (Nystop Powder -) 1 applic TP DAILY [facility] Last Admin: 09/28/17 14:25 Dose: 1 applic Ofloxacin (Ocuflox 0.3% Eye Drops -) 1 drop OU TID [facility] Last Admin: 09/29/17 07:38 Dose: 1 drop Ondansetron HCl (Zofran Injection) 4 mg IVPUSH Q8H PRN PRN Reason: NAUSEA Oxycodone HCl (Roxicodone -) 5 mg PO Q6H PRN PRN Reason: PAIN LEVEL 1-5 Last Admin: 09/26/17 21:45 Dose: 5 mg Polyethylene Glycol (Miralax (For Daily Use) -) 17 gm PO BID [facility] Last Admin: 09/28/17 22:31 Dose: Not Given Ranitidine HCl (Zantac -) 150 mg PO DAILY [facility] Last Admin: 09/28/17 14:17 Dose: 150 mg - Objective Vital Signs: Vital Signs Temperature 98.5 F 09/29/17 06:00 Pulse Rate 68 09/29/17 06:00 Respiratory Rate 20 09/29/17 06:00 Blood Pressure 140/62 09/29/17 06:00 O2 Sat by Pulse Oximetry (%) 97 09/28/17 21:00 Constitutional: Yes: No Distress, Calm Neck: Yes: Other (hard collar in place asking when can it come out) Cardiovascular: Yes: Regular Rate and Rhythm Respiratory: Yes: Regular, CTA Bilaterally, On Nasal O2 Gastrointestinal: Yes: Normal Bowel Sounds, Soft Musculoskeletal: Yes: Other Extremities: Yes: Other Wound/Incision: Yes: Clean/Dry Neurological: Yes: Alert, Oriented Psychiatric: Yes: Alert, Oriented Labs: CBC, BMP 09/28/17 10:15 09/28/17 10:15 INR, PTT INR 1.35 (0.82-1.09) H D 09/21/17 05:40 Assessment/Plan 67 yo male s/p exploration of spinal fusion, C2-T2 laminectomies and C7-T1 osteotomies, deformity correction and C2-T2 posterior fusion. r/o uti numbness leukocytosis Cervical Spinal Stenosis s/p C2-T2 Laminectomies/Posterior Fusions CAD Aortic Stenosis s/p AVR HTN DM CKD DOMINIK Toe Ulcer fever plan stable off of abx rest continue current mgmt patient stable dialysis
[2017-09-29] MEDS ORDERED: PT OWN MED DRAWER 7, Y5N ONE ×3 (09:19→15:10)
[2017-09-29] MEDS: FERROUS SO4 325 MG TABLET (FP) PO SCH (09:22)
[2017-09-29] MEDS: DOCUSATE SODIUM 100 MG CAPSULE (FP) PO SCH (09:22)
[2017-09-29] MEDS: ASPIRIN COATED 81 MG TABLET.EC PO SCH (09:23)
[2017-09-29] MEDS: CHLORTHALIDONE 25 MG TABLET PO SCH (09:24)
[2017-09-29] MEDS: ETHACRYNIC ACID 25 MG TABLET PO SCH ×2 (09:24→21:47)
[2017-09-29] MEDS: FOLIC ACID 1 MG TABLET (FP) PO SCH (09:24)
[2017-09-29] MEDS: POLYETHYLENE GLYCOL 3350 119 GM BTL PO SCH ×2 (09:25→22:04)
[2017-09-29] MEDS: amLODIPine BESYLATE 10 MG TABLET (FP) PO SCH (09:25)
[2017-09-29] MEDS: METOPROLOL TARTRATE 25 MG TABLET (FP) PO SCH ×2 (09:25→21:44)
[2017-09-29] MEDS: NYSTATIN POWDER 100,000 UNITS/GM - 15 GM TOPICAL POWDER TP SCH (09:26)
[2017-09-29] MEDS: RANITIDINE HCL 150 MG TABLET (FP) PO SCH (09:27)
[2017-09-29] MEDS: COLLAGENASE CLOSTRIDIUM HIST. 30 GRAMS TUBE TP SCH (09:27)
[2017-09-29] MEDS: CLOPIDOGREL BISULFATE 75 MG TABLET (FP) PO SCH (09:27)
--- NOTE | 2017-09-29 10:51 | PN ---
Physical Exam: SUBJECTIVE: Patient seen and examined. No issues overnight. Urinating freely OBJECTIVE: Vital Signs Period Temp Pulse Resp BP Sys/Kauffman Pulse Ox Last 24 Hr 97.6 F-98.9 F 57-69 16-20 123-159/52-87 93-97 PE Neuro: alert, awake, c collar in place Pulm: Clear anteriorly CV: s1 s2 rrr no mrg Abd: obese abd, soft + bc Ext: warm, L foot wound, 2nd toe dried wound , trace le edema + DP pulse Laboratory Results - last 24 hr 09/28/17 09/28/17 09/28/17 10:15 10:15 17:42 WBC 12.0 H RBC 2.77 L Hgb 7.4 L Hct 23.2 L MCV 83.7 MCH 26.8 MCHC 32.0 RDW 15.6 Plt Count 556 H MPV 8.1 Absolute Neuts (auto) 9.1 Neutrophils % 75.4 Lymphocytes % 8.7 Monocytes % 11.7 H Eosinophils % 3.3 Basophils % 0.9 Nucleated RBC % 0 Sodium 134 L Potassium 4.4 Chloride 96 L Carbon Dioxide 29 Anion Gap 9 BUN 57 H Creatinine 4.3 H D Creat Clearance w eGFR 13.76 POC Glucometer 220 Random Glucose 149 H D Calcium 8.3 L Total Bilirubin 0.3 D AST 21 D ALT 18 D Alkaline Phosphatase 103 Total Protein 6.4 Albumin 2.3 L Active Medications Generic Name Dose Route Start Last Admin Trade Name Freq PRN Reason Stop Dose Admin Acetaminophen 650 mg 09/26/17 12:49 Tylenol - PO Q4H PRN FEVER Amlodipine Besylate 10 mg 09/27/17 10:00 09/29/17 09:25 Norvasc - PO 10 mg DAILY [facility] Administration Aspirin 81 mg 09/27/17 10:00 09/29/17 09:23 Ecotrin - PO 81 mg DAILY [facility] Administration Atorvastatin Calcium 10 mg 09/26/17 22:00 09/28/17 22:24 Lipitor - PO 10 mg HS [facility] Administration Bisacodyl 10 mg 09/26/17 12:49 Dulcolax Suppository - RC DAILY PRN CONSTIPATION Brimonidine Tartrate 1 drop 09/26/17 14:00 09/29/17 06:01 Alphagan P 0.1% - OU 1 drop TID [facility] Administration Chlorthalidone 100 mg 09/27/17 10:00 09/29/17 09:24 Hygroton - PO 100 mg DAILY [facility] Administration Clopidogrel Bisulfate 75 mg 09/27/17 10:00 09/29/17 09:27 Plavix - PO 75 mg DAILY [facility] Administration Collagenase 1 applic 09/27/17 10:00 09/29/17 09:27 Santyl - TP 1 applic DAILY [facility] Administration Docusate Sodium 200 mg 09/27/17 10:00 09/29/17 09:22 Colace - PO 200 mg DAILY [facility] Administration Ethacrynic Acid 75 mg 09/26/17 22:00 09/29/17 09:24 Edecrin - PO 75 mg BID [facility] Administration Ferrous Sulfate 325 mg 09/27/17 08:00 09/29/17 09:22 Feosol - PO 325 mg DAILY@0800 [facility] Administration Folic Acid 1 mg 09/27/17 10:00 09/29/17 09:24 Folic Acid - PO 1 mg DAILY [facility] Administration Gabapentin 600 mg 09/26/17 14:00 09/29/17 06:00 Neurontin - PO 600 mg TID [facility] Administration Heparin Sodium (Porcine) 5,000 unit 09/28/17 14:00 09/29/17 06:01 Heparin - SQ 5,000 unit TID [facility] Administration Hydralazine HCl 75 mg 09/26/17 14:00 09/29/17 06:00 Apresoline - PO 75 mg TID [facility] Administration Insulin Aspart 1 vial 09/26/17 16:30 09/29/17 06:37 Novolog Vial Sliding Scale - SQ Not Given TIDAC [facility] Protocol Insulin Detemir 95 units 09/27/17 07:00 09/29/17 06:38 Levemir Vial SQ 95 units AM [facility] Administration Lactic Acid 1 applic 09/26/17 12:49 Lac-Hydrin 12 TP BID PRN xerosis Metoprolol Tartrate 25 mg 09/26/17 22:00 09/29/17 09:25 Lopressor - PO 25 mg BID [facility] Administration Nystatin 1 applic 09/27/17 10:00 09/29/17 09:26 Nystop Powder - TP 1 applic DAILY [facility] Administration Ofloxacin 1 drop 09/26/17 14:00 09/29/17 07:38 Ocuflox 0.3% Eye Drops - OU 1 drop TID [facility] Administration Ondansetron HCl 4 mg 09/26/17 12:49 Zofran Injection IVPUSH Q8H PRN NAUSEA Oxycodone HCl 5 mg 09/26/17 12:49 09/26/17 21:45 Roxicodone - PO 5 mg Q6H PRN Administration PAIN LEVEL 1-5 Polyethylene Glycol 17 gm 09/26/17 22:00 09/29/17 09:25 Miralax (For Daily Use) - PO 17 grams BID [facility] Administration Ranitidine HCl 150 mg 09/27/17 10:00 09/29/17 09:27 Zantac - PO 150 mg DAILY [facility] Administration Imaging: - Renal ultrasound: morphologically normal kidneys with no evidence of hydronephrosis or acute pathology Assessment: 67 year old male with PMHx of HTN, DM, hyperlipidemia, obesity, sleep apnea, CKD, s/p RCA stent 05/30/10, s/p TAVR on 07/04/13, wheelchair bound, cardiac cath 06/17/13, who is s/p C2-T12 laminectomy and C7-T1 osteotomies, deformity correction and C2-T2 posterior fusion on 09/11. Hospital Course c/b worsening HD requiring HD, started 09/26. Plan: 1. CKD now ESRD on HD MWF - Permacath placed 09/26 - Vein mapping done, AVF creation per vascular - Continue chlorthalidone - Started Ethacrynic Acid 2. Fever - Resolved - All abx stopped 09/27 3. S/p C2-T12 laminectomy and C7-T1 osteotomies, deformity correction and C2-T2 posterior fusion on 09/11 - [place] removed yesterday, dermabond in place - C-collar in place (continue 23/24 hours a day) - Neuro surgery seeing 4. Left big toe wound - Staph aureus from wound culture - Ammonia lactate bid - Santyl daily to left big toe - Heel pads bilaterally 5. CAD - Continue ASA - Continue Plavix 6. HTN - Continue Norvasc - Continue Hydralazine 7. DM II - BGM, ISS ACHS - Continue Levemir 95u sq AM 8. Sleep apnea - Bipap 9. DVT ppx - Heparin sq Visit type - Emergency Visit Emergency Visit: Yes ED Registration Date: 09/11/17 Care time: The patient presented to the Emergency Department on the above date and was hospitalized for further evaluation of their emergent condition. - New Patient This patient is new to me today: No - Critical Care Critical Care patient: No
[2017-09-29] MEDS ORDERED: INSULIN (NOVOLOG) ASPART 100 UNITS/ML 10ML VIAL ONE ×2 (11:27→17:18)
[2017-09-29] MEDS: oxyCODONE HCL 5 MG TABLET PO PRN (11:36)
[2017-09-29] MEDS: ATORVASTATIN CA 10 MG TABLET (FP) PO SCH (21:44)
--- NOTE | 2017-09-29 23:09 | PN ---
Progress Note (short form) - Note Progress Note: nephrology coverage seen on dialysis Problems 1. CKD 2. DM 3. cervical spine disease 4. HTN 5. CHF 6. obesity 7. anemia 8. DOMINIK 9. HLD 10. volume overload 11. s/p c2 to t2 decompression and fusion Current Medications Acetaminophen (Tylenol -) 650 mg PO Q4H PRN PRN Reason: FEVER Amlodipine Besylate (Norvasc -) 10 mg PO DAILY [facility] Last Admin: 09/29/17 09:25 Dose: 10 mg Aspirin (Ecotrin -) 81 mg PO DAILY [facility] Last Admin: 09/29/17 09:23 Dose: 81 mg Atorvastatin Calcium (Lipitor -) 10 mg PO HS [facility] Last Admin: 09/29/17 21:44 Dose: 10 mg Bisacodyl (Dulcolax Suppository -) 10 mg RC DAILY PRN PRN Reason: CONSTIPATION Brimonidine Tartrate (Alphagan P 0.1% -) 1 drop OU TID [facility] Last Admin: 09/29/17 21:48 Dose: 1 drop Chlorthalidone (Hygroton -) 100 mg PO DAILY [facility] Last Admin: 09/29/17 09:24 Dose: 100 mg Clopidogrel Bisulfate (Plavix -) 75 mg PO DAILY [facility] Last Admin: 09/29/17 09:27 Dose: 75 mg Collagenase (Santyl -) 1 applic TP DAILY [facility] Last Admin: 09/29/17 09:27 Dose: 1 applic Docusate Sodium (Colace -) 200 mg PO DAILY [facility] Last Admin: 09/29/17 09:22 Dose: 200 mg Ethacrynic Acid (Edecrin -) 75 mg PO BID [facility] Last Admin: 09/29/17 21:47 Dose: 75 mg Ferrous Sulfate (Feosol -) 325 mg PO DAILY@0800 [facility] Last Admin: 09/29/17 09:22 Dose: 325 mg Folic Acid (Folic Acid -) 1 mg PO DAILY [facility] Last Admin: 09/29/17 09:24 Dose: 1 mg Gabapentin (Neurontin -) 600 mg PO TID [facility] Last Admin: 09/29/17 21:41 Dose: 600 mg Heparin Sodium (Porcine) (Heparin -) 5,000 unit SQ TID [facility] Last Admin: 09/29/17 21:45 Dose: 5,000 unit Hydralazine HCl (Apresoline -) 75 mg PO TID [facility] Last Admin: 09/29/17 21:44 Dose: 75 mg Insulin Aspart (Novolog Vial Sliding Scale -) 1 vial SQ TIDAC [facility]; Protocol Last Admin: 09/29/17 17:21 Dose: 2 units Insulin Detemir (Levemir Vial) 95 units SQ AM [facility] Last Admin: 09/29/17 06:38 Dose: 95 units Lactic Acid (Lac-Hydrin 12) 1 applic TP BID PRN PRN Reason: xerosis Metoprolol Tartrate (Lopressor -) 25 mg PO BID [facility] Last Admin: 09/29/17 21:44 Dose: 25 mg Nystatin (Nystop Powder -) 1 applic TP DAILY [facility] Last Admin: 09/29/17 09:26 Dose: 1 applic Ofloxacin (Ocuflox 0.3% Eye Drops -) 1 drop OU TID [facility] Last Admin: 09/29/17 21:49 Dose: 1 drop Ondansetron HCl (Zofran Injection) 4 mg IVPUSH Q8H PRN PRN Reason: NAUSEA Oxycodone HCl (Roxicodone -) 5 mg PO Q6H PRN PRN Reason: PAIN LEVEL 1-5 Last Admin: 09/29/17 11:36 Dose: 5 mg Polyethylene Glycol (Miralax (For Daily Use) -) 17 gm PO BID [facility] Last Admin: 09/29/17 22:04 Dose: Not Given Ranitidine HCl (Zantac -) 150 mg PO DAILY [facility] Last Admin: 09/29/17 09:27 Dose: 150 mg Last Vital Signs Temp Pulse Resp BP Pulse Ox 98.7 F 62 18 123/57 94 L 09/29/17 14:00 09/29/17 14:00 09/29/17 14:00 09/29/17 14:00 09/29/17 21:00 no complaints lungs clear heart reg abd soft ext no edema CBC, BMP 09/28/17 10:15 09/28/17 10:15 esrd discussed his nutrition with jinrikisha driver we agreed he can accomodate 240 ml daily of nutritional supplement like Nepro Plan- uneventful hd yesterday maintenance hd next week
[2017-09-30] MEDS: HEPARIN NA (PORCINE) 5,000 UNITS/ML 1ML VIAL SQ SCH ×3 (06:39→21:27)
[2017-09-30] MEDS: GABAPENTIN 300 MG CAPSULE (FP) PO SCH ×3 (06:39→21:25)
[2017-09-30] MEDS: BRIMONIDINE TARTRATE 0.1% OPHTHALMIC 5 ML BOTTLE OU SCH ×3 (06:40→21:28)
[2017-09-30] MEDS: OFLOXACIN 0.3% OPHTHALMIC SOLUTION 5 ML BOTTLE OU SCH ×3 (06:41→21:27)
[2017-09-30] MEDS: INSULIN (LEVEMIR) 100 UNITS/ML UNITS SQ SCH (06:42)
[2017-09-30] MEDS: hydrALAZINE HCL 25 MG TABLET (FP) PO SCH ×3 (06:42→21:25)
[2017-09-30] MEDS: INSULIN SLIDING SCALE (NOVOLOG) 1 VIAL SQ SCH ×3 (06:43→16:58)
[2017-09-30] MEDS: FERROUS SO4 325 MG TABLET (FP) PO SCH (08:35)
--- NOTE | 2017-09-30 10:18 | PN ---
Progress Note (short form) - Note Progress Note: PULMONARY VSS RESTING COMFORTABLY REMAINS ON NASAL CANULA O2 NO CHANGE IN EXAM LABS/MEDS/NOTES REVIEWED Cervical Spinal Stenosis s/p C2-T2 Laminectomies/Posterior Fusions Respiratory distress DYSPNEA VOLUME OVERLOAD CAD Aortic Stenosis s/p AVR HTN DM CKD DOMINIK ANEMIA Toe Ulcer - NIPPV QHS and PRN / Wean FiO2 as tolerated - HD as per renal - pain control - incentive spirometry - rehab/PT - monitor lytes - DVT prophylaxis Cara MIRANDA MD
[2017-09-30] MEDS ORDERED: PT OWN MED DRAWER 7, Y5N ONE ×7 (10:30→18:44)
--- NOTE | 2017-09-30 10:32 | PN ---
Progress Note, Physician History of Present Illness: stable no new issues - Current Medication List Current Medications: Active Medications Acetaminophen (Tylenol -) 650 mg PO Q4H PRN PRN Reason: FEVER Amlodipine Besylate (Norvasc -) 10 mg PO DAILY [facility] Last Admin: 09/29/17 09:25 Dose: 10 mg Aspirin (Ecotrin -) 81 mg PO DAILY [facility] Last Admin: 09/29/17 09:23 Dose: 81 mg Atorvastatin Calcium (Lipitor -) 10 mg PO HS [facility] Last Admin: 09/29/17 21:44 Dose: 10 mg Bisacodyl (Dulcolax Suppository -) 10 mg RC DAILY PRN PRN Reason: CONSTIPATION Brimonidine Tartrate (Alphagan P 0.1% -) 1 drop OU TID [facility] Last Admin: 09/30/17 06:40 Dose: 1 drop Chlorthalidone (Hygroton -) 100 mg PO DAILY [facility] Last Admin: 09/29/17 09:24 Dose: 100 mg Clopidogrel Bisulfate (Plavix -) 75 mg PO DAILY [facility] Last Admin: 09/29/17 09:27 Dose: 75 mg Collagenase (Santyl -) 1 applic TP DAILY [facility] Last Admin: 09/29/17 09:27 Dose: 1 applic Docusate Sodium (Colace -) 200 mg PO DAILY [facility] Last Admin: 09/29/17 09:22 Dose: 200 mg Ethacrynic Acid (Edecrin -) 75 mg PO BID [facility] Last Admin: 09/29/17 21:47 Dose: 75 mg Ferrous Sulfate (Feosol -) 325 mg PO DAILY@0800 [facility] Last Admin: 09/30/17 08:35 Dose: 325 mg Folic Acid (Folic Acid -) 1 mg PO DAILY [facility] Last Admin: 09/29/17 09:24 Dose: 1 mg Gabapentin (Neurontin -) 600 mg PO TID [facility] Last Admin: 09/30/17 06:39 Dose: 600 mg Heparin Sodium (Porcine) (Heparin -) 5,000 unit SQ TID [facility] Last Admin: 09/30/17 06:39 Dose: 5,000 unit Hydralazine HCl (Apresoline -) 75 mg PO TID [facility] Last Admin: 09/30/17 06:42 Dose: 75 mg Insulin Aspart (Novolog Vial Sliding Scale -) 1 vial SQ TIDAC [facility]; Protocol Last Admin: 09/30/17 06:43 Dose: Not Given Insulin Detemir (Levemir Vial) 95 units SQ AM [facility] Last Admin: 09/30/17 06:42 Dose: 95 units Lactic Acid (Lac-Hydrin 12) 1 applic TP BID PRN PRN Reason: xerosis Metoprolol Tartrate (Lopressor -) 25 mg PO BID [facility] Last Admin: 09/29/17 21:44 Dose: 25 mg Nystatin (Nystop Powder -) 1 applic TP DAILY [facility] Last Admin: 09/29/17 09:26 Dose: 1 applic Ofloxacin (Ocuflox 0.3% Eye Drops -) 1 drop OU TID [facility] Last Admin: 09/30/17 06:41 Dose: 1 drop Ondansetron HCl (Zofran Injection) 4 mg IVPUSH Q8H PRN PRN Reason: NAUSEA Oxycodone HCl (Roxicodone -) 5 mg PO Q6H PRN PRN Reason: PAIN LEVEL 1-5 Last Admin: 09/29/17 11:36 Dose: 5 mg Polyethylene Glycol (Miralax (For Daily Use) -) 17 gm PO BID [facility] Last Admin: 09/29/17 22:04 Dose: Not Given Ranitidine HCl (Zantac -) 150 mg PO DAILY [facility] Last Admin: 09/29/17 09:27 Dose: 150 mg - Objective Vital Signs: Vital Signs Temperature 97.8 F 09/30/17 10:00 Pulse Rate 57 L 09/30/17 10:00 Respiratory Rate 20 09/30/17 10:00 Blood Pressure 112/40 09/30/17 10:00 O2 Sat by Pulse Oximetry (%) 97 09/30/17 08:06 Constitutional: Yes: No Distress, Calm Cardiovascular: Yes: Regular Rate and Rhythm Respiratory: Yes: Regular, CTA Bilaterally Gastrointestinal: Yes: Normal Bowel Sounds, Soft Musculoskeletal: Yes: WNL Extremities: Yes: Other Neurological: Yes: Alert, Oriented Psychiatric: Yes: Alert, Oriented Labs: CBC, BMP 09/28/17 10:15 09/28/17 10:15 INR, PTT INR 1.35 (0.82-1.09) H D 09/21/17 05:40 Assessment/Plan 67 yo male s/p exploration of spinal fusion, C2-T2 laminectomies and C7-T1 osteotomies, deformity correction and C2-T2 posterior fusion. r/o uti numbness leukocytosis Cervical Spinal Stenosis s/p C2-T2 Laminectomies/Posterior Fusions CAD Aortic Stenosis s/p AVR HTN DM CKD DOMINIK Toe Ulcer fever plan stable off of abx rest continue current mgmt patient stable dialysis
[2017-09-30] MEDS: DOCUSATE SODIUM 100 MG CAPSULE (FP) PO SCH (10:35)
[2017-09-30] MEDS: CLOPIDOGREL BISULFATE 75 MG TABLET (FP) PO SCH (10:35)
[2017-09-30] MEDS: CHLORTHALIDONE 25 MG TABLET PO SCH (10:35)
[2017-09-30] MEDS: RANITIDINE HCL 150 MG TABLET (FP) PO SCH (10:36)
[2017-09-30] MEDS: FOLIC ACID 1 MG TABLET (FP) PO SCH (10:36)
[2017-09-30] MEDS: METOPROLOL TARTRATE 25 MG TABLET (FP) PO SCH ×2 (10:36→21:25)
[2017-09-30] MEDS: ASPIRIN COATED 81 MG TABLET.EC PO SCH (10:36)
[2017-09-30] MEDS: amLODIPine BESYLATE 10 MG TABLET (FP) PO SCH (10:36)
[2017-09-30] MEDS: POLYETHYLENE GLYCOL 3350 119 GM BTL PO SCH ×2 (10:50→22:00)
[2017-09-30] MEDS: ETHACRYNIC ACID 25 MG TABLET PO SCH ×2 (10:50→21:28)
[2017-09-30] MEDS: COLLAGENASE CLOSTRIDIUM HIST. 30 GRAMS TUBE TP SCH (10:51)
[2017-09-30] MEDS: NYSTATIN POWDER 100,000 UNITS/GM - 15 GM TOPICAL POWDER TP SCH (10:52)
--- NOTE | 2017-09-30 11:27 | PN ---
Progress Note (short form) - Note Progress Note: Patient recovering well from complex cervical reconstruction surgery. Ready for rehabilitation as soon as possible. Renal issues under management.
--- NOTE | 2017-09-30 12:01 | PN ---
Physical Exam: SUBJECTIVE: Patient seen and examined. He is feeling well, staff was able to get him oob to chair OBJECTIVE: Vital Signs Period Temp Pulse Resp BP Sys/Kauffman Pulse Ox Last 24 Hr 97.8 F-98.7 F 57-64 18-20 108-139/40-76 92-97 PE Neuro: alert, awake, c collar in place Pulm: Clear anteriorly CV: s1 s2 rrr no mrg Abd: obese abd, soft + bc Ext: warm, L foot wound, 2nd toe dried wound , trace le edema + DP pulse Laboratory Results - last 24 hr 09/29/17 09/29/17 09/29/17 11:30 17:14 21:13 POC Glucometer 195 198 136 09/30/17 05:46 POC Glucometer 108 Active Medications Generic Name Dose Route Start Last Admin Trade Name Freq PRN Reason Stop Dose Admin Acetaminophen 650 mg 09/26/17 12:49 Tylenol - PO Q4H PRN FEVER Amlodipine Besylate 10 mg 09/27/17 10:00 09/30/17 10:36 Norvasc - PO 10 mg DAILY ELENA Administration Aspirin 81 mg 09/27/17 10:00 09/30/17 10:36 Ecotrin - PO 81 mg DAILY ELENA Administration Atorvastatin Calcium 10 mg 09/26/17 22:00 09/29/17 21:44 Lipitor - PO 10 mg HS ELENA Administration Bisacodyl 10 mg 09/26/17 12:49 Dulcolax Suppository - RC DAILY PRN CONSTIPATION Brimonidine Tartrate 1 drop 09/26/17 14:00 09/30/17 06:40 Alphagan P 0.1% - OU 1 drop TID ELENA Administration Chlorthalidone 100 mg 09/27/17 10:00 09/30/17 10:35 Hygroton - PO 100 mg DAILY ELENA Administration Clopidogrel Bisulfate 75 mg 09/27/17 10:00 09/30/17 10:35 Plavix - PO 75 mg DAILY ELENA Administration Collagenase 1 applic 09/27/17 10:00 09/30/17 10:51 Santyl - TP 1 applic DAILY ELENA Administration Docusate Sodium 200 mg 09/27/17 10:00 09/30/17 10:35 Colace - PO 200 mg DAILY ELENA Administration Ethacrynic Acid 75 mg 09/26/17 22:00 09/30/17 10:50 Edecrin - PO 75 mg BID ELENA Administration Ferrous Sulfate 325 mg 09/27/17 08:00 09/30/17 08:35 Feosol - PO 325 mg DAILY@0800 ELENA Administration Folic Acid 1 mg 09/27/17 10:00 09/30/17 10:36 Folic Acid - PO 1 mg DAILY ELENA Administration Gabapentin 600 mg 09/26/17 14:00 09/30/17 06:39 Neurontin - PO 600 mg TID ELENA Administration Heparin Sodium (Porcine) 5,000 unit 09/28/17 14:00 09/30/17 06:39 Heparin - SQ 5,000 unit TID [facility] Administration Hydralazine HCl 75 mg 09/26/17 14:00 09/30/17 06:42 Apresoline - PO 75 mg TID [facility] Administration Insulin Aspart 1 vial 09/26/17 16:30 09/30/17 06:43 Novolog Vial Sliding Scale - SQ Not Given TIDAC [facility] Protocol Insulin Detemir 95 units 09/27/17 07:00 09/30/17 06:42 Levemir Vial SQ 95 units AM [facility]LENA Administration Lactic Acid 1 applic 09/26/17 12:49 Lac-Hydrin 12 TP BID PRN xerosis Metoprolol Tartrate 25 mg 09/26/17 22:00 09/30/17 10:36 Lopressor - PO 25 mg BID ELENA Administration Nystatin 1 applic 09/27/17 10:00 09/30/17 10:52 Nystop Powder - TP 1 applic DAILY [facility] Administration Ofloxacin 1 drop 09/26/17 14:00 09/30/17 06:41 Ocuflox 0.3% Eye Drops - OU 1 drop TID [facility] Administration Ondansetron HCl 4 mg 09/26/17 12:49 Zofran Injection IVPUSH Q8H PRN NAUSEA Oxycodone HCl 5 mg 09/26/17 12:49 09/29/17 11:36 Roxicodone - PO 5 mg Q6H PRN Administration PAIN LEVEL 1-5 Polyethylene Glycol 17 gm 09/26/17 22:00 09/30/17 10:50 Miralax (For Daily Use) - PO 17 grams BID [facility]NA Administration Ranitidine HCl 150 mg 09/27/17 10:00 09/30/17 10:36 Zantac - PO 150 mg DAILY [facility]NA Administration Imaging: - Renal ultrasound: morphologically normal kidneys with no evidence of hydronephrosis or acute pathology Assessment: 67 year old male with PMHx of HTN, DM, hyperlipidemia, obesity, sleep apnea, CKD, s/p RCA stent 05/30/10, s/p TAVR on 07/04/13, wheelchair bound, cardiac cath 06/17/13, who is s/p C2-T12 laminectomy and C7-T1 osteotomies, deformity correction and C2-T2 posterior fusion on 09/11. Hospital Course c/b worsening HD requiring HD, started 09/26. Plan: 1. CKD now ESRD on HD MWF - Permacath placed 09/26 - Vein mapping done, AVF creation per vascular - Continue chlorthalidone - Started Ethacrynic Acid 2. Fever - Resolved - All abx stopped 09/27 3. S/p C2-T12 laminectomy and C7-T1 osteotomies, deformity correction and C2-T2 posterior fusion on 09/11 - Mariella removed yesterday, dermabond in place - C-collar in place (continue 23/24 hours a day) - Neuro surgery seeing 4. Left big toe wound - Staph aureus from wound culture - Ammonia lactate bid - Santyl daily to left big toe - Heel pads bilaterally 5. CAD - Continue ASA - Continue Plavix 6. HTN - Continue Norvasc - Continue Hydralazine 7. DM II - BGM, ISS ACHS - Continue Levemir 95u sq AM 8. Sleep apnea - Bipap 9. DVT ppx - Heparin sq Visit type - Emergency Visit Emergency Visit: Yes ED Registration Date: 09/11/17 Care time: The patient presented to the Emergency Department on the above date and was hospitalized for further evaluation of their emergent condition. - New Patient This patient is new to me today: No - Critical Care Critical Care patient: No
[2017-09-30] MEDS ORDERED: INSULIN (NOVOLOG) ASPART 100 UNITS/ML 10ML VIAL ONE ×2 (12:03→18:44)
[2017-09-30] MEDS: ATORVASTATIN CA 10 MG TABLET (FP) PO SCH (21:25)
--- NOTE | 2017-09-30 22:26 | PN ---
Progress Note (short form) - Note Progress Note: nephrology coverage seen on dialysis Problems 1. CKD 2. DM 3. cervical spine disease 4. HTN 5. CHF 6. obesity 7. anemia 8. DOMINIK 9. HLD 10. volume overload 11. s/p c2 to t2 decompression and fusion Current Medications Acetaminophen (Tylenol -) 650 mg PO Q4H PRN PRN Reason: FEVER Amlodipine Besylate (Norvasc -) 10 mg PO DAILY [facility] Last Admin: 09/30/17 10:36 Dose: 10 mg Aspirin (Ecotrin -) 81 mg PO DAILY [facility] Last Admin: 09/30/17 10:36 Dose: 81 mg Atorvastatin Calcium (Lipitor -) 10 mg PO HS [facility] Last Admin: 09/30/17 21:25 Dose: 10 mg Bisacodyl (Dulcolax Suppository -) 10 mg RC DAILY PRN PRN Reason: CONSTIPATION Brimonidine Tartrate (Alphagan P 0.1% -) 1 drop OU TID [facility] Last Admin: 09/30/17 21:28 Dose: 1 drop Chlorthalidone (Hygroton -) 100 mg PO DAILY [facility] Last Admin: 09/30/17 10:35 Dose: 100 mg Clopidogrel Bisulfate (Plavix -) 75 mg PO DAILY [facility] Last Admin: 09/30/17 10:35 Dose: 75 mg Collagenase (Santyl -) 1 applic TP DAILY [facility] Last Admin: 09/30/17 10:51 Dose: 1 applic Docusate Sodium (Colace -) 200 mg PO DAILY [facility] Last Admin: 09/30/17 10:35 Dose: 200 mg Ethacrynic Acid (Edecrin -) 75 mg PO BID [facility] Last Admin: 09/30/17 21:28 Dose: 75 mg Ferrous Sulfate (Feosol -) 325 mg PO DAILY@0800 [facility] Last Admin: 09/30/17 08:35 Dose: 325 mg Folic Acid (Folic Acid -) 1 mg PO DAILY [facility] Last Admin: 09/30/17 10:36 Dose: 1 mg Gabapentin (Neurontin -) 600 mg PO TID [facility] Last Admin: 09/30/17 21:25 Dose: 600 mg Heparin Sodium (Porcine) (Heparin -) 5,000 unit SQ TID [facility] Last Admin: 09/30/17 21:27 Dose: 5,000 unit Hydralazine HCl (Apresoline -) 75 mg PO TID [facility] Last Admin: 09/30/17 21:25 Dose: 75 mg Insulin Aspart (Novolog Vial Sliding Scale -) 1 vial SQ TIDAC [facility]; Protocol Last Admin: 09/30/17 16:58 Dose: 4 units Insulin Detemir (Levemir Vial) 95 units SQ AM [facility] Last Admin: 09/30/17 06:42 Dose: 95 units Lactic Acid (Lac-Hydrin 12) 1 applic TP BID PRN PRN Reason: xerosis Metoprolol Tartrate (Lopressor -) 25 mg PO BID [facility] Last Admin: 09/30/17 21:25 Dose: 25 mg Nystatin (Nystop Powder -) 1 applic TP DAILY [facility] Last Admin: 09/30/17 10:52 Dose: 1 applic Ofloxacin (Ocuflox 0.3% Eye Drops -) 1 drop OU TID [facility] Last Admin: 09/30/17 21:27 Dose: 1 drop Ondansetron HCl (Zofran Injection) 4 mg IVPUSH Q8H PRN PRN Reason: NAUSEA Oxycodone HCl (Roxicodone -) 5 mg PO Q6H PRN PRN Reason: PAIN LEVEL 1-5 Last Admin: 09/29/17 11:36 Dose: 5 mg Polyethylene Glycol (Miralax (For Daily Use) -) 17 gm PO BID [facility] Last Admin: 09/30/17 10:50 Dose: 17 grams Ranitidine HCl (Zantac -) 150 mg PO DAILY [facility] Last Admin: 09/30/17 10:36 Dose: 150 mg Last Vital Signs Temp Pulse Resp BP Pulse Ox 98.4 F 62 20 123/62 100 09/30/17 14:10 09/30/17 14:10 09/30/17 14:10 09/30/17 14:10 09/30/17 09:00 no complaints lungs clear heart reg abd soft ext no edema IMP esrd discussed his nutrition with 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
--- NOTE | 2017-09-30 22:56 | PN ---
Progress Note (short form) - Note Progress Note: FUV left big toe. Patient alert earlier today. Sitting up in his wheelchair. wbc=12.0, +eschar, -cellulitis, -drainage, grade 0 ulceration Heel pads b/l. continue Santyl daily to left big toe. Ammonium lactate BID to exposed lower extremities. Will follow.May be DC tomorrow. Should foll in Wound care.
[2017-10-01] MEDS ORDERED: hydrALAZINE HCL 50 MG TABLET (FP) ONE ×3 (05:48→20:41)
[2017-10-01] MEDS ORDERED: hydrALAZINE HCL 25 MG TABLET (FP) ONE ×3 (05:48→20:41)
[2017-10-01] MEDS: GABAPENTIN 300 MG CAPSULE (FP) PO SCH ×3 (05:50→22:18)
[2017-10-01] MEDS: BRIMONIDINE TARTRATE 0.1% OPHTHALMIC 5 ML BOTTLE OU SCH ×3 (05:50→22:20)
[2017-10-01] MEDS: OFLOXACIN 0.3% OPHTHALMIC SOLUTION 5 ML BOTTLE OU SCH ×3 (05:51→22:20)
[2017-10-01] MEDS: HEPARIN NA (PORCINE) 5,000 UNITS/ML 1ML VIAL SQ SCH ×3 (05:52→22:19)
[2017-10-01] MEDS: INSULIN SLIDING SCALE (NOVOLOG) 1 VIAL SQ SCH ×3 (06:10→17:55)
[2017-10-01] MEDS: INSULIN (LEVEMIR) 100 UNITS/ML UNITS SQ SCH (06:36)
[2017-10-01] MEDS: FERROUS SO4 325 MG TABLET (FP) PO SCH ×2 (09:10→14:14)
--- NOTE | 2017-10-01 10:40 | PN ---
Progress Note, Physician History of Present Illness: patient stable no new issues - Current Medication List Current Medications: Active Medications Acetaminophen (Tylenol -) 650 mg PO Q4H PRN PRN Reason: FEVER Amlodipine Besylate (Norvasc -) 10 mg PO DAILY [facility] Last Admin: 09/30/17 10:36 Dose: 10 mg Aspirin (Ecotrin -) 81 mg PO DAILY [facility] Last Admin: 09/30/17 10:36 Dose: 81 mg Atorvastatin Calcium (Lipitor -) 10 mg PO HS [facility] Last Admin: 09/30/17 21:25 Dose: 10 mg Bisacodyl (Dulcolax Suppository -) 10 mg RC DAILY PRN PRN Reason: CONSTIPATION Brimonidine Tartrate (Alphagan P 0.1% -) 1 drop OU TID [facility] Last Admin: 10/01/17 05:50 Dose: 1 drop Chlorthalidone (Hygroton -) 100 mg PO DAILY [facility] Last Admin: 09/30/17 10:35 Dose: 100 mg Clopidogrel Bisulfate (Plavix -) 75 mg PO DAILY [facility] Last Admin: 09/30/17 10:35 Dose: 75 mg Collagenase (Santyl -) 1 applic TP DAILY [facility] Last Admin: 09/30/17 10:51 Dose: 1 applic Docusate Sodium (Colace -) 200 mg PO DAILY [facility] Last Admin: 09/30/17 10:35 Dose: 200 mg Ethacrynic Acid (Edecrin -) 75 mg PO BID [facility] Last Admin: 09/30/17 21:28 Dose: 75 mg Ferrous Sulfate (Feosol -) 325 mg PO DAILY@0800 [facility] Last Admin: 09/30/17 08:35 Dose: 325 mg Folic Acid (Folic Acid -) 1 mg PO DAILY [facility] Last Admin: 09/30/17 10:36 Dose: 1 mg Gabapentin (Neurontin -) 600 mg PO TID [facility] Last Admin: 10/01/17 05:50 Dose: 600 mg Heparin Sodium (Porcine) (Heparin -) 5,000 unit SQ TID [facility] Last Admin: 10/01/17 05:52 Dose: 5,000 unit Hydralazine HCl 50 mg/ (Hydralazine HCl 25 mg) 75 mg PO TID [facility] Last Admin: 10/01/17 05:51 Dose: Not Given Insulin Aspart (Novolog Vial Sliding Scale -) 1 vial SQ TIDAC [facility]; Protocol Last Admin: 09/30/17 16:58 Dose: 4 units Insulin Detemir (Levemir Vial) 95 units SQ AM [facility] Last Admin: 10/01/17 06:36 Dose: 95 units Lactic Acid (Lac-Hydrin 12) 1 applic TP BID PRN PRN Reason: xerosis Metoprolol Tartrate (Lopressor -) 25 mg PO BID [facility] Last Admin: 09/30/17 21:25 Dose: 25 mg Nystatin (Nystop Powder -) 1 applic TP DAILY [facility] Last Admin: 09/30/17 10:52 Dose: 1 applic Ofloxacin (Ocuflox 0.3% Eye Drops -) 1 drop OU TID [facility] Last Admin: 10/01/17 05:51 Dose: 1 drop Ondansetron HCl (Zofran Injection) 4 mg IVPUSH Q8H PRN PRN Reason: NAUSEA Polyethylene Glycol (Miralax (For Daily Use) -) 17 gm PO BID [facility] Last Admin: 09/30/17 22:00 Dose: Not Given Ranitidine HCl (Zantac -) 150 mg PO DAILY [facility] Last Admin: 09/30/17 10:36 Dose: 150 mg - Objective Vital Signs: Vital Signs Temperature 98.2 F 10/01/17 07:00 Pulse Rate 80 10/01/17 07:00 Respiratory Rate 20 10/01/17 07:00 Blood Pressure 132/88 10/01/17 07:00 O2 Sat by Pulse Oximetry (%) 100 10/01/17 07:12 Constitutional: Yes: No Distress, Calm HENT: Yes: Other (neck collar--hard) Cardiovascular: Yes: Regular Rate and Rhythm Respiratory: Yes: Regular, CTA Bilaterally Gastrointestinal: Yes: Normal Bowel Sounds, Soft Musculoskeletal: Yes: WNL Extremities: Yes: Other Neurological: Yes: Alert, Oriented Psychiatric: Yes: Alert, Oriented Labs: CBC, BMP 09/28/17 10:15 09/28/17 10:15 INR, PTT INR 1.35 (0.82-1.09) H D 09/21/17 05:40 Assessment/Plan 67 yo male s/p exploration of spinal fusion, C2-T2 laminectomies and C7-T1 osteotomies, deformity correction and C2-T2 posterior fusion. r/o uti numbness leukocytosis Cervical Spinal Stenosis s/p C2-T2 Laminectomies/Posterior Fusions CAD Aortic Stenosis s/p AVR HTN DM CKD DOMINIK Toe Ulcer fever plan stable off of abx rest continue current mgmt patient stable dialysis
--- NOTE | 2017-10-01 14:04 | PN ---
Progress Note (short form) - Note Progress Note: PULMONARY Breathing better. Just returned from HD. Vital Signs Period Temp Pulse Resp BP Sys/Kauffman Pulse Ox Last 24 Hr 98.2 F-98.4 F 61-87 18-20 108-150/46-88 100-100 Gen: less tachypneic Heart: RRR Lung: decreased breath sounds at the bases Abd:soft, nontender Ext: + edema CBC, BMP 09/28/17 10:15 09/28/17 10:15 Active Medications Acetaminophen (Tylenol -) 650 mg PO Q4H PRN PRN Reason: FEVER Amlodipine Besylate (Norvasc -) 10 mg PO DAILY [facility] Last Admin: 09/30/17 10:36 Dose: 10 mg Aspirin (Ecotrin -) 81 mg PO DAILY [facility] Last Admin: 09/30/17 10:36 Dose: 81 mg Atorvastatin Calcium (Lipitor -) 10 mg PO HS [facility] Last Admin: 09/30/17 21:25 Dose: 10 mg Bisacodyl (Dulcolax Suppository -) 10 mg RC DAILY PRN PRN Reason: CONSTIPATION Brimonidine Tartrate (Alphagan P 0.1% -) 1 drop OU TID [facility] Last Admin: 10/01/17 05:50 Dose: 1 drop Chlorthalidone (Hygroton -) 100 mg PO DAILY [facility] Last Admin: 09/30/17 10:35 Dose: 100 mg Clopidogrel Bisulfate (Plavix -) 75 mg PO DAILY [facility] Last Admin: 09/30/17 10:35 Dose: 75 mg Collagenase (Santyl -) 1 applic TP DAILY [facility] Last Admin: 09/30/17 10:51 Dose: 1 applic Docusate Sodium (Colace -) 200 mg PO DAILY [facility] Last Admin: 09/30/17 10:35 Dose: 200 mg Ethacrynic Acid (Edecrin -) 75 mg PO BID [facility] Last Admin: 09/30/17 21:28 Dose: 75 mg Ferrous Sulfate (Feosol -) 325 mg PO DAILY@0800 [facility] Last Admin: 09/30/17 08:35 Dose: 325 mg Folic Acid (Folic Acid -) 1 mg PO DAILY [facility] Last Admin: 09/30/17 10:36 Dose: 1 mg Gabapentin (Neurontin -) 600 mg PO TID [facility] Last Admin: 10/01/17 05:50 Dose: 600 mg Heparin Sodium (Porcine) (Heparin -) 5,000 unit SQ TID [facility] Last Admin: 10/01/17 05:52 Dose: 5,000 unit Hydralazine HCl 50 mg/ (Hydralazine HCl 25 mg) 75 mg PO TID [facility] Last Admin: 10/01/17 05:51 Dose: Not Given Insulin Aspart (Novolog Vial Sliding Scale -) 1 vial SQ TIDAC [facility]; Protocol Last Admin: 09/30/17 16:58 Dose: 4 units Insulin Detemir (Levemir Vial) 95 units SQ AM [facility] Last Admin: 10/01/17 06:36 Dose: 95 units Lactic Acid (Lac-Hydrin 12) 1 applic TP BID PRN PRN Reason: xerosis Metoprolol Tartrate (Lopressor -) 25 mg PO BID [facility] Last Admin: 09/30/17 21:25 Dose: 25 mg Nystatin (Nystop Powder -) 1 applic TP DAILY [facility] Last Admin: 09/30/17 10:52 Dose: 1 applic Ofloxacin (Ocuflox 0.3% Eye Drops -) 1 drop OU TID [facility] Last Admin: 10/01/17 05:51 Dose: 1 drop Ondansetron HCl (Zofran Injection) 4 mg IVPUSH Q8H PRN PRN Reason: NAUSEA Polyethylene Glycol (Miralax (For Daily Use) -) 17 gm PO BID [facility] Last Admin: 09/30/17 22:00 Dose: Not Given Ranitidine HCl (Zantac -) 150 mg PO DAILY [facility] Last Admin: 09/30/17 10:36 Dose: 150 mg A/P Cervical Spinal Stenosis s/p C2-T2 Laminectomies/Posterior Fusions Volume Overload Acute on Chronic Renal Failure requiring HD 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
[2017-10-01] MEDS: amLODIPine BESYLATE 10 MG TABLET (FP) PO SCH (14:11)
[2017-10-01] MEDS: RANITIDINE HCL 150 MG TABLET (FP) PO SCH (14:11)
[2017-10-01] MEDS: ASPIRIN COATED 81 MG TABLET.EC PO SCH (14:13)
[2017-10-01] MEDS: FOLIC ACID 1 MG TABLET (FP) PO SCH (14:13)
[2017-10-01] MEDS: CLOPIDOGREL BISULFATE 75 MG TABLET (FP) PO SCH (14:13)
[2017-10-01] MEDS: NYSTATIN POWDER 100,000 UNITS/GM - 15 GM TOPICAL POWDER TP SCH (14:15)
[2017-10-01] MEDS: COLLAGENASE CLOSTRIDIUM HIST. 30 GRAMS TUBE TP SCH (14:16)
[2017-10-01] MEDS ORDERED: PT OWN MED DRAWER 7, Y5N ONE ×3 (14:18→20:43)
[2017-10-01] MEDS: DOCUSATE SODIUM 100 MG CAPSULE (FP) PO SCH (14:19)
[2017-10-01] MEDS: ETHACRYNIC ACID 25 MG TABLET PO SCH ×2 (14:19→22:19)
[2017-10-01] MEDS: POLYETHYLENE GLYCOL 3350 119 GM BTL PO SCH ×2 (14:20→22:10)
[2017-10-01] MEDS: CHLORTHALIDONE 25 MG TABLET PO SCH (14:20)
[2017-10-01] MEDS: METOPROLOL TARTRATE 25 MG TABLET (FP) PO SCH ×2 (14:28→22:18)
--- NOTE | 2017-10-01 14:31 | PN ---
Physical Exam: SUBJECTIVE: Patient seen and examined when on HD. Well tolerated. Appears well, no acute sob or cp. OBJECTIVE: Vital Signs Period Temp Pulse Resp BP Sys/Kauffman Pulse Ox Last 24 Hr 98.2 F-98.4 F 61-87 18-20 108-150/46-88 100-100 PE Neuro: alert, awake, c collar in place Pulm: Clear anteriorly CV: s1 s2 rrr no mrg Abd: obese abd, soft + bc Ext: warm, L foot wound, 2nd toe dried wound Skin: RCW permacath Laboratory Results - last 24 hr 09/30/17 10/01/17 16:52 05:53 POC Glucometer 201 145 Active Medications Generic Name Dose Route Start Last Admin Trade Name Freq PRN Reason Stop Dose Admin Acetaminophen 650 mg 09/26/17 12:49 Tylenol - PO Q4H PRN FEVER Amlodipine Besylate 10 mg 09/27/17 10:00 10/01/17 14:11 Norvasc - PO 10 mg DAILY [facility] Administration Aspirin 81 mg 09/27/17 10:00 10/01/17 14:13 Ecotrin - PO 81 mg DAILY [facility] Administration Atorvastatin Calcium 10 mg 09/26/17 22:00 09/30/17 21:25 Lipitor - PO 10 mg HS [facility]NA Administration Bisacodyl 10 mg 09/26/17 12:49 Dulcolax Suppository - RC DAILY PRN CONSTIPATION Brimonidine Tartrate 1 drop 09/26/17 14:00 10/01/17 05:50 Alphagan P 0.1% - OU 1 drop TID [facility] Administration Chlorthalidone 100 mg 09/27/17 10:00 10/01/17 14:20 Hygroton - PO 100 mg DAILY [facility] Administration Clopidogrel Bisulfate 75 mg 09/27/17 10:00 10/01/17 14:13 Plavix - PO 75 mg DAILY [facility] Administration Collagenase 1 applic 09/27/17 10:00 10/01/17 14:16 Santyl - TP 1 applic DAILY [facility] Administration Docusate Sodium 200 mg 09/27/17 10:00 10/01/17 14:19 Colace - PO 200 mg DAILY [facility] Administration Ethacrynic Acid 75 mg 09/26/17 22:00 10/01/17 14:19 Edecrin - PO 75 mg BID [facility] Administration Ferrous Sulfate 325 mg 09/27/17 08:00 06/18/18 14:14 Feosol - PO 325 mg DAILY@0800 [facility] Administration Folic Acid 1 mg 09/27/17 10:00 10/01/17 14:13 Folic Acid - PO 1 mg DAILY [facility] Administration Gabapentin 600 mg 09/26/17 14:00 10/01/17 14:10 Neurontin - PO 600 mg TID [facility] Administration Heparin Sodium (Porcine) 5,000 unit 09/28/17 14:00 10/01/17 05:52 Heparin - SQ 5,000 unit TID [facility] Administration Hydralazine HCl 50 mg/ 75 mg 10/01/17 06:00 10/01/17 14:11 Hydralazine HCl 25 mg PO 75 mg TID [facility] Administration Insulin Aspart 1 vial 09/26/17 16:30 09/30/17 16:58 Novolog Vial Sliding Scale - SQ 4 units TIDAC [facility] Administration Protocol Insulin Detemir 95 units 09/27/17 07:00 10/01/17 06:36 Levemir Vial SQ 95 units AM [facility] Administration Lactic Acid 1 applic 09/26/17 12:49 Lac-Hydrin 12 TP BID PRN xerosis Metoprolol Tartrate 25 mg 09/26/17 22:00 10/01/17 14:28 Lopressor - PO 25 mg BID [facility] Administration Nystatin 1 applic 09/27/17 10:00 10/01/17 14:15 Nystop Powder - TP 1 applic DAILY [facility] Administration Ofloxacin 1 drop 09/26/17 14:00 10/01/17 05:51 Ocuflox 0.3% Eye Drops - OU 1 drop TID [facility] Administration Ondansetron HCl 4 mg 09/26/17 12:49 Zofran Injection IVPUSH Q8H PRN NAUSEA Polyethylene Glycol 17 gm 09/26/17 22:00 10/01/17 14:20 Miralax (For Daily Use) - PO Not Given BID [facility] Ranitidine HCl 150 mg 09/27/17 10:00 10/01/17 14:11 Zantac - PO 150 mg DAILY [facility] Administration Assessment: 67 year old male with PMHx of HTN, DM, hyperlipidemia, obesity, sleep apnea, CKD, s/p RCA stent 05/30/10, s/p TAVR on 07/04/13, wheelchair bound, cardiac cath 06/17/13, who is s/p C2-T12 laminectomy and C7-T1 osteotomies, deformity correction and C2-T2 posterior fusion on 09/11. Hospital Course c/b worsening HD requiring HD, started 09/26. Plan: 1. CKD now ESRD on HD MWF - Permacath placed 09/26 - Vein mapping done, AVF creation to be done as outpt with Dr. Ibrahim - Started Ethacrynic Acid (lasix allergy) 2. Fever - Resolved - All abx stopped 09/27 3. S/p C2-T12 laminectomy and C7-T1 osteotomies, deformity correction and C2-T2 posterior fusion on 09/11 - [place] removed yesterday, dermabond in place - C-collar in place (continue 23/24 hours a day) - Neuro surgery seeing 4. Left big toe wound - Staph aureus from wound culture - Ammonia lactate bid - Santyl daily to left big toe - Heel pads bilaterally 5. CAD - Continue ASA - Continue Plavix 6. HTN - Continue Norvasc - Continue Hydralazine 7. DM II - BGM, ISS ACHS - Continue Levemir 95u sq AM 8. Sleep apnea - Bipap 9. DVT ppx - Heparin sq Dispo: - Arranging outpt HD Visit type - Emergency Visit Emergency Visit: Yes ED Registration Date: 09/11/17 Care time: The patient presented to the Emergency Department on the above date and was hospitalized for further evaluation of their emergent condition. - New Patient This patient is new to me today: No - Critical Care Critical Care patient: No
--- NOTE | 2017-10-01 14:53 | PN ---
Progress Note, Physician History of Present Illness: Pt seen and examined in HD. He is awake and alert. - Current Medication List Current Medications: Active Medications Acetaminophen (Tylenol -) 650 mg PO Q4H PRN PRN Reason: FEVER Amlodipine Besylate (Norvasc -) 10 mg PO DAILY [facility] Last Admin: 10/01/17 14:11 Dose: 10 mg Aspirin (Ecotrin -) 81 mg PO DAILY [facility] Last Admin: 10/01/17 14:13 Dose: 81 mg Atorvastatin Calcium (Lipitor -) 10 mg PO HS [facility] Last Admin: 09/30/17 21:25 Dose: 10 mg Bisacodyl (Dulcolax Suppository -) 10 mg RC DAILY PRN PRN Reason: CONSTIPATION Brimonidine Tartrate (Alphagan P 0.1% -) 1 drop OU TID [facility] Last Admin: 10/01/17 05:50 Dose: 1 drop Chlorthalidone (Hygroton -) 100 mg PO DAILY [facility] Last Admin: 10/01/17 14:20 Dose: 100 mg Clopidogrel Bisulfate (Plavix -) 75 mg PO DAILY [facility] Last Admin: 10/01/17 14:13 Dose: 75 mg Collagenase (Santyl -) 1 applic TP DAILY [facility] Last Admin: 10/01/17 14:16 Dose: 1 applic Docusate Sodium (Colace -) 200 mg PO DAILY [facility] Last Admin: 10/01/17 14:19 Dose: 200 mg Ethacrynic Acid (Edecrin -) 75 mg PO BID [facility] Last Admin: 10/01/17 14:19 Dose: 75 mg Ferrous Sulfate (Feosol -) 325 mg PO DAILY@0800 [facility] Last Admin: 10/01/17 14:14 Dose: 325 mg Folic Acid (Folic Acid -) 1 mg PO DAILY [facility] Last Admin: 10/01/17 14:13 Dose: 1 mg Gabapentin (Neurontin -) 600 mg PO TID [facility] Last Admin: 10/01/17 14:10 Dose: 600 mg Heparin Sodium (Porcine) (Heparin -) 5,000 unit SQ TID [facility] Last Admin: 10/01/17 05:52 Dose: 5,000 unit Hydralazine HCl 50 mg/ (Hydralazine HCl 25 mg) 75 mg PO TID [facility] Last Admin: 10/01/17 14:11 Dose: 75 mg Insulin Aspart (Novolog Vial Sliding Scale -) 1 vial SQ TIDAC [facility]; Protocol Last Admin: 09/30/17 16:58 Dose: 4 units Insulin Detemir (Levemir Vial) 95 units SQ AM [facility] Last Admin: 10/01/17 06:36 Dose: 95 units Lactic Acid (Lac-Hydrin 12) 1 applic TP BID PRN PRN Reason: xerosis Metoprolol Tartrate (Lopressor -) 25 mg PO BID [facility] Last Admin: 10/01/17 14:28 Dose: 25 mg Nystatin (Nystop Powder -) 1 applic TP DAILY [facility] Last Admin: 10/01/17 14:15 Dose: 1 applic Ofloxacin (Ocuflox 0.3% Eye Drops -) 1 drop OU TID [facility] Last Admin: 10/01/17 05:51 Dose: 1 drop Ondansetron HCl (Zofran Injection) 4 mg IVPUSH Q8H PRN PRN Reason: NAUSEA Polyethylene Glycol (Miralax (For Daily Use) -) 17 gm PO BID [facility] Last Admin: 10/01/17 14:20 Dose: Not Given Ranitidine HCl (Zantac -) 150 mg PO DAILY [facility] Last Admin: 10/01/17 14:11 Dose: 150 mg - Objective Vital Signs: Vital Signs Temperature 98.4 F 10/01/17 10:15 Pulse Rate 87 10/01/17 13:25 Respiratory Rate 18 10/01/17 13:25 Blood Pressure 122/63 10/01/17 13:25 O2 Sat by Pulse Oximetry (%) 100 10/01/17 07:12 Constitutional: Yes: Calm Eyes: Yes: Conjunctiva Clear HENT: Yes: Atraumatic Cardiovascular: Yes: S1, S2 Respiratory: Yes: CTA Bilaterally Gastrointestinal: Yes: Soft, Abdomen, Obese Genitourinary: Yes: Incontinence Musculoskeletal: Yes: Muscle Weakness Edema: No Neurological: Yes: Oriented Psychiatric: Yes: Oriented Labs: CBC, BMP 09/28/17 10:15 09/28/17 10:15 INR, PTT INR 1.35 (0.82-1.09) H D 09/21/17 05:40 Problem List - Problems (1) Acute on chronic kidney failure Code(s): N17.9 - ACUTE KIDNEY FAILURE, UNSPECIFIED; N18.9 - CHRONIC KIDNEY DISEASE, UNSPECIFIED (2) CHF (congestive heart failure) Code(s): I50.9 - HEART FAILURE, UNSPECIFIED (3) Diabetes Code(s): E11.9 - TYPE 2 DIABETES MELLITUS WITHOUT COMPLICATIONS (4) HTN (hypertension) Code(s): I10 - ESSENTIAL (PRIMARY) HYPERTENSION Assessment/Plan Current Medications Generic Name Dose Route Start Last Admin Trade Name Freq PRN Reason Stop Dose Admin Acetaminophen 650 mg 09/26/17 12:49 Tylenol - PO Q4H PRN FEVER Amlodipine Besylate 10 mg 09/27/17 10:00 10/01/17 14:11 Norvasc - PO 10 mg DAILY [facility] Administration Aspirin 81 mg 09/27/17 10:00 10/01/17 14:13 Ecotrin - PO 81 mg DAILY [facility] Administration Atorvastatin Calcium 10 mg 09/26/17 22:00 09/30/17 21:25 Lipitor - PO 10 mg HS [facility] Administration Bisacodyl 10 mg 09/26/17 12:49 Dulcolax Suppository - RC DAILY PRN CONSTIPATION Brimonidine Tartrate 1 drop 09/26/17 14:00 10/01/17 05:50 Alphagan P 0.1% - OU 1 drop TID [facility] Administration Chlorthalidone 100 mg 09/27/17 10:00 10/01/17 14:20 Hygroton - PO 100 mg DAILY [facility] Administration Clopidogrel Bisulfate 75 mg 09/27/17 10:00 10/01/17 14:13 Plavix - PO 75 mg DAILY [facility] Administration Collagenase 1 applic 09/27/17 10:00 10/01/17 14:16 Santyl - TP 1 applic DAILY [facility] Administration Docusate Sodium 200 mg 09/27/17 10:00 10/01/17 14:19 Colace - PO 200 mg DAILY [facility] Administration Ethacrynic Acid 75 mg 09/26/17 22:00 10/01/17 14:19 Edecrin - PO 75 mg BID [facility] Administration Ferrous Sulfate 325 mg 09/27/17 08:00 10/01/17 14:14 Feosol - PO 325 mg DAILY@0800 [facility] Administration Folic Acid 1 mg 09/27/17 10:00 10/01/17 14:13 Folic Acid - PO 1 mg DAILY [facility] Administration Gabapentin 600 mg 09/26/17 14:00 10/01/17 14:10 Neurontin - PO 600 mg TID [facility] Administration Heparin Sodium (Porcine) 5,000 unit 09/28/17 14:00 10/01/17 05:52 Heparin - SQ 5,000 unit TID [facility] Administration Hydralazine HCl 50 mg/ 75 mg 10/01/17 06:00 10/01/17 14:11 Hydralazine HCl 25 mg PO 75 mg TID [facility] Administration Insulin Aspart 1 vial 09/26/17 16:30 09/30/17 16:58 Novolog Vial Sliding Scale - SQ 4 units TIDAC [facility] Administration Protocol Insulin Detemir 95 units 09/27/17 07:00 10/01/17 06:36 Levemir Vial SQ 95 units AM [facility] Administration Lactic Acid 1 applic 09/26/17 12:49 Lac-Hydrin 12 TP BID PRN xerosis Metoprolol Tartrate 25 mg 09/26/17 22:00 10/01/17 14:28 Lopressor - PO 25 mg BID [facility] Administration Nystatin 1 applic 09/27/17 10:00 10/01/17 14:15 Nystop Powder - TP 1 applic DAILY [facility] Administration Ofloxacin 1 drop 09/26/17 14:00 10/01/17 05:51 Ocuflox 0.3% Eye Drops - OU 1 drop TID [facility] Administration Ondansetron HCl 4 mg 09/26/17 12:49 Zofran Injection IVPUSH Q8H PRN NAUSEA Polyethylene Glycol 17 gm 09/26/17 22:00 10/01/17 14:20 Miralax (For Daily Use) - PO Not Given BID [facility] Ranitidine HCl 150 mg 09/27/17 10:00 10/01/17 14:11 Zantac - PO 150 mg DAILY [facility] Administration Impression 1. CKD 2. DM 3. cervical spine disease 4. HTN 5. CHF 6. obesity 7. anemia 8. DOMINIK 9. HLD 10. volume overload 11. s/p c2 to t2 decompression and fusion Plan - HD today - pt will need HD set up as outpt, [place] the [place] [facility] [place] ven[place] - will follow - discussed with medical team
[2017-10-01] MEDS ORDERED: INSULIN (LEVEMIR) 100 UNITS/ML UNITS SQ ONE (20:41)
[2017-10-01] MEDS: ATORVASTATIN CA 10 MG TABLET (FP) PO SCH (22:18)
[2017-10-02] MEDS ORDERED: hydrALAZINE HCL 25 MG TABLET (FP) ONE ×3 (03:23→21:46)
[2017-10-02] MEDS ORDERED: hydrALAZINE HCL 50 MG TABLET (FP) ONE ×3 (03:23→21:46)
[2017-10-02] MEDS: GABAPENTIN 300 MG CAPSULE (FP) PO SCH ×3 (06:08→21:49)
[2017-10-02] MEDS: HEPARIN NA (PORCINE) 5,000 UNITS/ML 1ML VIAL SQ SCH ×3 (06:08→21:50)
[2017-10-02] MEDS: BRIMONIDINE TARTRATE 0.1% OPHTHALMIC 5 ML BOTTLE OU SCH ×3 (06:09→21:52)
[2017-10-02] MEDS: OFLOXACIN 0.3% OPHTHALMIC SOLUTION 5 ML BOTTLE OU SCH ×3 (06:10→21:53)
[2017-10-02] MEDS: INSULIN SLIDING SCALE (NOVOLOG) 1 VIAL SQ SCH ×3 (06:18→17:32)
[2017-10-02] MEDS: INSULIN (LEVEMIR) 100 UNITS/ML UNITS SQ SCH (06:18)
[2017-10-02] MEDS ORDERED: PT OWN MED DRAWER 7, Y5N ONE ×5 (09:44→14:17)
[2017-10-02] MEDS: RANITIDINE HCL 150 MG TABLET (FP) PO SCH (09:56)
[2017-10-02] MEDS: DOCUSATE SODIUM 100 MG CAPSULE (FP) PO SCH (09:56)
[2017-10-02] MEDS ORDERED: INSULIN (LEVEMIR) 100 UNITS/ML UNITS SQ ONE (09:56)
[2017-10-02] MEDS: amLODIPine BESYLATE 10 MG TABLET (FP) PO SCH (09:57)
[2017-10-02] MEDS: ASPIRIN COATED 81 MG TABLET.EC PO SCH (09:57)
[2017-10-02] MEDS: CLOPIDOGREL BISULFATE 75 MG TABLET (FP) PO SCH (09:57)
[2017-10-02] MEDS: METOPROLOL TARTRATE 25 MG TABLET (FP) PO SCH ×2 (09:58→21:50)
[2017-10-02] MEDS: FOLIC ACID 1 MG TABLET (FP) PO SCH (09:58)
[2017-10-02] MEDS: FERROUS SO4 325 MG TABLET (FP) PO SCH ×2 (09:58→21:50)
[2017-10-02] MEDS: CHLORTHALIDONE 25 MG TABLET PO SCH (09:59)
[2017-10-02] MEDS: ETHACRYNIC ACID 25 MG TABLET PO SCH ×2 (10:00→21:51)
--- NOTE | 2017-10-02 10:03 | PN ---
Progress Note (short form) - Note Progress Note: PULMONARY Denies shortness of breath or chest pain. Vital Signs Period Temp Pulse Resp BP Sys/Kauffman Pulse Ox Last 24 Hr 98.4 F-99.4 F 58-87 18-20 108-150/46-77 Gen: less tachypneic Heart: RRR Lung: decreased breath sounds at the bases Abd:soft, nontender Ext: + edema decreasing CBC, BMP 09/28/17 10:15 09/28/17 10:15 Active Medications Acetaminophen (Tylenol -) 650 mg PO Q4H PRN PRN Reason: FEVER Amlodipine Besylate (Norvasc -) 10 mg PO DAILY [facility] Last Admin: 10/02/17 09:57 Dose: 10 mg Aspirin (Ecotrin -) 81 mg PO DAILY [facility] Last Admin: 10/02/17 09:57 Dose: 81 mg Atorvastatin Calcium (Lipitor -) 10 mg PO HS [facility] Last Admin: 10/01/17 22:18 Dose: 10 mg Bisacodyl (Dulcolax Suppository -) 10 mg RC DAILY PRN PRN Reason: CONSTIPATION Brimonidine Tartrate (Alphagan P 0.1% -) 1 drop OU TID [facility] Last Admin: 10/02/17 06:09 Dose: 1 drop Chlorthalidone (Hygroton -) 100 mg PO DAILY [facility] Last Admin: 10/02/17 09:59 Dose: 100 mg Clopidogrel Bisulfate (Plavix -) 75 mg PO DAILY [facility] Last Admin: 10/02/17 09:57 Dose: 75 mg Collagenase (Santyl -) 1 applic TP DAILY [facility] Last Admin: 10/01/17 14:16 Dose: 1 applic Docusate Sodium (Colace -) 200 mg PO DAILY [facility] Last Admin: 10/02/17 09:56 Dose: 200 mg Ethacrynic Acid (Edecrin -) 75 mg PO BID [facility] Last Admin: 10/02/17 10:00 Dose: 75 mg Ferrous Sulfate (Feosol -) 325 mg PO DAILY@0800 [facility] Last Admin: 10/02/17 09:58 Dose: 325 mg Folic Acid (Folic Acid -) 1 mg PO DAILY [facility] Last Admin: 10/02/17 09:58 Dose: 1 mg Gabapentin (Neurontin -) 600 mg PO TID [facility] Last Admin: 10/02/17 06:08 Dose: 600 mg Heparin Sodium (Porcine) (Heparin -) 5,000 unit SQ TID [facility] Last Admin: 10/02/17 06:08 Dose: 5,000 unit Hydralazine HCl 50 mg/ (Hydralazine HCl 25 mg) 75 mg PO TID [facility] Last Admin: 10/02/17 06:06 Dose: 75 mg Insulin Aspart (Novolog Vial Sliding Scale -) 1 vial SQ TIDAC [facility]; Protocol Last Admin: 10/02/17 06:18 Dose: Not Given Insulin Detemir (Levemir Vial) 95 units SQ AM [facility] Last Admin: 10/02/17 06:18 Dose: 95 units Lactic Acid (Lac-Hydrin 12) 1 applic TP BID PRN PRN Reason: xerosis Metoprolol Tartrate (Lopressor -) 25 mg PO BID [facility] Last Admin: 10/02/17 09:58 Dose: 25 mg Nystatin (Nystop Powder -) 1 applic TP DAILY [facility] Last Admin: 10/01/17 14:15 Dose: 1 applic Ofloxacin (Ocuflox 0.3% Eye Drops -) 1 drop OU TID [facility] Last Admin: 10/02/17 06:10 Dose: 1 drop Ondansetron HCl (Zofran Injection) 4 mg IVPUSH Q8H PRN PRN Reason: NAUSEA Polyethylene Glycol (Miralax (For Daily Use) -) 17 gm PO BID [facility] Last Admin: 10/01/17 22:10 Dose: Not Given Ranitidine HCl (Zantac -) 150 mg PO DAILY [facility] Last Admin: 10/02/17 09:56 Dose: 150 mg A/P Cervical Spinal Stenosis s/p C2-T2 Laminectomies/Posterior Fusions Volume Overload Acute on Chronic Renal Failure requiring HD 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
[2017-10-02] MEDS: POLYETHYLENE GLYCOL 3350 119 GM BTL PO SCH ×2 (10:09→21:54)
[2017-10-02] MEDS: NYSTATIN POWDER 100,000 UNITS/GM - 15 GM TOPICAL POWDER TP SCH (10:10)
[2017-10-02] MEDS: COLLAGENASE CLOSTRIDIUM HIST. 30 GRAMS TUBE TP SCH (10:59)
--- NOTE | 2017-10-02 11:54 | PN ---
Physical Exam: SUBJECTIVE: Patient seen and examined at the bedside. Feels well, in no acute distress. No chest pain, not short of breath. OBJECTIVE: Vital Signs Period Temp Pulse Resp BP Sys/Kauffman Pulse Ox Last 24 Hr 98.1 F-99.4 F 58-87 18-20 119-150/51-77 GENERAL: The patient is awake, alert, and fully oriented, in no acute distress. HEAD: Normal with no signs of trauma, on c llar EYES: PERRL, extraocular movements intact, sclera anicteric, conjunctiva clear. No ptosis. ENT: Ears normal, nares patent, oropharynx clear without exudates, moist mucous membranes. NECK: on c collar LUNGS: Breath sounds equal, diminished anteriorly HEART: Regular rate and rhythm ABDOMEN: Soft, nontender, nondistended, normoactive bowel sounds, no guarding, no rebound, no hepatosplenomegaly, no masses. EXTREMITIES: 2+ pulses, warm, well-perfused, no edema. PSYCH: Normal mood, normal affect. SKIN: Warm, dry, normal turgor, no rashes or lesions noted Laboratory Results - last 24 hr 10/01/17 10/02/17 17:25 06:12 POC Glucometer 227 133 Active Medications Generic Name Dose Route Start Last Admin Trade Name Freq PRN Reason Stop Dose Admin Acetaminophen 650 mg 09/26/17 12:49 Tylenol - PO Q4H PRN FEVER Amlodipine Besylate 10 mg 09/27/17 10:00 10/02/17 09:57 Norvasc - PO 10 mg DAILY [facility] Administration Aspirin 81 mg 09/27/17 10:00 10/02/17 09:57 Ecotrin - PO 81 mg DAILY [facility] Administration Atorvastatin Calcium 10 mg 09/26/17 22:00 10/01/17 22:18 Lipitor - PO 10 mg HS [facility] Administration Bisacodyl 10 mg 09/26/17 12:49 Dulcolax Suppository - RC DAILY PRN CONSTIPATION Brimonidine Tartrate 1 drop 09/26/17 14:00 10/02/17 06:09 Alphagan P 0.1% - OU 1 drop TID [facility] Administration Chlorthalidone 100 mg 09/27/17 10:00 10/02/17 09:59 Hygroton - PO 100 mg DAILY [facility] Administration Clopidogrel Bisulfate 75 mg 09/27/17 10:00 10/02/17 09:57 Plavix - PO 75 mg DAILY [facility] Administration Collagenase 1 applic 09/27/17 10:00 10/02/17 10:59 Santyl - TP 1 applic DAILY [facility] Administration Docusate Sodium 200 mg 09/27/17 10:00 10/02/17 09:56 Colace - PO 200 mg DAILY [facility] Administration Ethacrynic Acid 75 mg 09/26/17 22:00 10/02/17 10:00 Edecrin - PO 75 mg BID [facility] Administration Ferrous Sulfate 325 mg 09/27/17 08:00 10/02/17 09:58 Feosol - PO 325 mg DAILY@0800 [facility] Administration Folic Acid 1 mg 09/27/17 10:00 10/02/17 09:58 Folic Acid - PO 1 mg DAILY [facility] Administration Gabapentin 600 mg 09/26/17 14:00 10/02/17 06:08 Neurontin - PO 600 mg TID [facility] Administration Heparin Sodium (Porcine) 5,000 unit 09/28/17 14:00 10/02/17 06:08 Heparin - SQ 5,000 unit TID [facility] Administration Hydralazine HCl 50 mg/ 75 mg 10/01/17 06:00 10/02/17 06:06 Hydralazine HCl 25 mg PO 75 mg TID [facility] Administration Insulin Aspart 1 vial 09/26/17 16:30 10/02/17 06:18 Novolog Vial Sliding Scale - SQ Not Given TIDAC [facility] Protocol Insulin Detemir 95 units 09/27/17 07:00 10/02/17 06:18 Levemir Vial SQ 95 units AM [facility] Administration Lactic Acid 1 applic 09/26/17 12:49 Lac-Hydrin 12 TP BID PRN xerosis Metoprolol Tartrate 25 mg 09/26/17 22:00 10/02/17 09:58 Lopressor - PO 25 mg BID [facility] Administration Nystatin 1 applic 09/27/17 10:00 10/02/17 10:10 Nystop Powder - TP 1 applic DAILY [facility] Administration Ofloxacin 1 drop 09/26/17 14:00 10/02/17 06:10 Ocuflox 0.3% Eye Drops - OU 1 drop TID [facility] Administration Ondansetron HCl 4 mg 09/26/17 12:49 Zofran Injection IVPUSH Q8H PRN NAUSEA Polyethylene Glycol 17 gm 09/26/17 22:00 10/02/17 10:09 Miralax (For Daily Use) - PO 17 grams BID [facility] Administration Ranitidine HCl 150 mg 09/27/17 10:00 10/02/17 09:56 Zantac - PO 150 mg DAILY [facility] Administration ASSESSMENT/PLAN: Patient is a 67 year old male with a significant past medical history of hypertension, dm, hyperlipidemia, obesity, sleep apnea, CKD, s/p RCA stent , s/p TAVR on 07/04/13, wheelchair bound, cardiac cath 06/17/13. He is s/p C2- T12 laminectomy and C7-T1 osteotomies, deformity correction and C2-T2 posterior fusion on 09/11. 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 Right permacath placed 09/26. Vein mapping done, AVF outpatient with Dr. Ibrahim Started Ethacrynic Acid Heme Anemia of chronic disease On Ferrous Sulfate, increased BID On Epogen Surgery: S/p C2-T12 laminectomy and C7-T1 osteotomies, deformity correction and C2-T2 posterior fusion on 09/11 On C collar, surgery following Vascular: Left big toe wound Santyl daily, wound care WC with staph aureus Card: CAD, chronic on dual therapy Hypertension, controlled On Norvasc, Hydralazine Endocrine: Diabetes BGMs, SS, Levemir Pulm: Sleep apnea, chronic. On bipap Prophylaxis: SCDs discharge planning, awaiting facility Visit type - Emergency Visit Emergency Visit: Yes ED Registration Date: 09/11/17 Care time: The patient presented to the Emergency Department on the above date and was hospitalized for further evaluation of their emergent condition. - New Patient This patient is new to me today: Yes Date on this admission: 10/02/17 - Critical Care Critical Care patient: No - Discharge Referral Referred to [facility] No
[2017-10-02 14:04] VITALS: BMI 36.3
--- NOTE | 2017-10-02 14:46 | PN ---
Progress Note, Physician History of Present Illness: patient doing well no complaints - Current Medication List Current Medications: Active Medications Acetaminophen (Tylenol -) 650 mg PO Q4H PRN PRN Reason: FEVER Amlodipine Besylate (Norvasc -) 10 mg PO DAILY [facility] Last Admin: 10/02/17 09:57 Dose: 10 mg Aspirin (Ecotrin -) 81 mg PO DAILY [facility] Last Admin: 10/02/17 09:57 Dose: 81 mg Atorvastatin Calcium (Lipitor -) 10 mg PO HS [facility] Last Admin: 10/01/17 22:18 Dose: 10 mg Bisacodyl (Dulcolax Suppository -) 10 mg RC DAILY PRN PRN Reason: CONSTIPATION Brimonidine Tartrate (Alphagan P 0.1% -) 1 drop OU TID [facility] Last Admin: 10/02/17 13:44 Dose: 1 drop Chlorthalidone (Hygroton -) 100 mg PO DAILY [facility] Last Admin: 10/02/17 09:59 Dose: 100 mg Clopidogrel Bisulfate (Plavix -) 75 mg PO DAILY [facility] Last Admin: 10/02/17 09:57 Dose: 75 mg Collagenase (Santyl -) 1 applic TP DAILY [facility] Last Admin: 10/02/17 10:59 Dose: 1 applic Docusate Sodium (Colace -) 200 mg PO DAILY [facility] Last Admin: 10/02/17 09:56 Dose: 200 mg Ethacrynic Acid (Edecrin -) 75 mg PO BID [facility] Last Admin: 10/02/17 10:00 Dose: 75 mg Ferrous Sulfate (Feosol -) 325 mg PO BID [facility] Folic Acid (Folic Acid -) 1 mg PO DAILY [facility] Last Admin: 10/02/17 09:58 Dose: 1 mg Gabapentin (Neurontin -) 600 mg PO TID [facility] Last Admin: 10/02/17 13:37 Dose: 600 mg Heparin Sodium (Porcine) (Heparin -) 5,000 unit SQ TID [facility] Last Admin: 10/02/17 13:37 Dose: 5,000 unit Hydralazine HCl 50 mg/ (Hydralazine HCl 25 mg) 75 mg PO TID [facility] Last Admin: 10/02/17 13:39 Dose: 75 mg Insulin Aspart (Novolog Vial Sliding Scale -) 1 vial SQ TIDAC [facility]; Protocol Last Admin: 10/02/17 12:20 Dose: 2 units Insulin Detemir (Levemir Vial) 95 units SQ AM [facility] Last Admin: 10/02/17 06:18 Dose: 95 units Lactic Acid (Lac-Hydrin 12) 1 applic TP BID PRN PRN Reason: xerosis Metoprolol Tartrate (Lopressor -) 25 mg PO BID [facility] Last Admin: 10/02/17 09:58 Dose: 25 mg Nystatin (Nystop Powder -) 1 applic TP DAILY [facility] Last Admin: 10/02/17 10:10 Dose: 1 applic Ofloxacin (Ocuflox 0.3% Eye Drops -) 1 drop OU TID [facility] Last Admin: 10/02/17 13:43 Dose: 1 drop Ondansetron HCl (Zofran Injection) 4 mg IVPUSH Q8H PRN PRN Reason: NAUSEA Polyethylene Glycol (Miralax (For Daily Use) -) 17 gm PO BID [facility] Last Admin: 10/02/17 10:09 Dose: 17 grams Ranitidine HCl (Zantac -) 150 mg PO DAILY [facility] Last Admin: 10/02/17 09:56 Dose: 150 mg - Objective Vital Signs: Vital Signs Temperature 98.9 F 10/02/17 13:50 Pulse Rate 61 10/02/17 13:50 Respiratory Rate 20 10/02/17 13:50 Blood Pressure 133/56 10/02/17 13:50 O2 Sat by Pulse Oximetry (%) 100 10/01/17 09:00 Constitutional: Yes: No Distress, Calm Neck: Yes: Other (hard collar) Cardiovascular: Yes: Regular Rate and Rhythm Respiratory: Yes: Regular, CTA Bilaterally Gastrointestinal: Yes: Normal Bowel Sounds, Soft Musculoskeletal: Yes: WNL Extremities: Yes: WNL Neurological: Yes: Alert, Oriented Labs: CBC, BMP 09/28/17 10:15 09/28/17 10:15 INR, PTT INR 1.35 (0.82-1.09) H D 09/21/17 05:40 Assessment/Plan 67 yo male s/p exploration of spinal fusion, C2-T2 laminectomies and C7-T1 osteotomies, deformity correction and C2-T2 posterior fusion. r/o uti numbness leukocytosis Cervical Spinal Stenosis s/p C2-T2 Laminectomies/Posterior Fusions CAD Aortic Stenosis s/p AVR HTN DM CKD DOMINIK Toe Ulcer fever plan stable off of abx rest continue current mgmt patient stable dialysis
[2017-10-02] MEDS ORDERED: SODIUM CHLORIDE 250 ML IV PRN (14:55)
--- NOTE | 2017-10-02 14:55 | PN ---
Progress Note, Physician History of Present Illness: Pt seen and examined at bedside. He is awake and alert. He denies shortness of breath. - Current Medication List Current Medications: Active Medications Acetaminophen (Tylenol -) 650 mg PO Q4H PRN PRN Reason: FEVER Amlodipine Besylate (Norvasc -) 10 mg PO DAILY [facility] Last Admin: 10/02/17 09:57 Dose: 10 mg Aspirin (Ecotrin -) 81 mg PO DAILY [facility] Last Admin: 10/02/17 09:57 Dose: 81 mg Atorvastatin Calcium (Lipitor -) 10 mg PO HS [facility] Last Admin: 10/01/17 22:18 Dose: 10 mg Bisacodyl (Dulcolax Suppository -) 10 mg RC DAILY PRN PRN Reason: CONSTIPATION Brimonidine Tartrate (Alphagan P 0.1% -) 1 drop OU TID [facility] Last Admin: 10/02/17 13:44 Dose: 1 drop Chlorthalidone (Hygroton -) 100 mg PO DAILY [facility] Last Admin: 10/02/17 09:59 Dose: 100 mg Clopidogrel Bisulfate (Plavix -) 75 mg PO DAILY [facility] Last Admin: 10/02/17 09:57 Dose: 75 mg Collagenase (Santyl -) 1 applic TP DAILY [facility] Last Admin: 10/02/17 10:59 Dose: 1 applic Docusate Sodium (Colace -) 200 mg PO DAILY [facility] Last Admin: 10/02/17 09:56 Dose: 200 mg Ethacrynic Acid (Edecrin -) 75 mg PO BID [facility] Last Admin: 10/02/17 10:00 Dose: 75 mg Ferrous Sulfate (Feosol -) 325 mg PO BID [facility] Folic Acid (Folic Acid -) 1 mg PO DAILY [facility] Last Admin: 10/02/17 09:58 Dose: 1 mg Gabapentin (Neurontin -) 600 mg PO TID [facility] Last Admin: 10/02/17 13:37 Dose: 600 mg Heparin Sodium (Porcine) (Heparin -) 5,000 unit SQ TID [facility] Last Admin: 10/02/17 13:37 Dose: 5,000 unit Hydralazine HCl 50 mg/ (Hydralazine HCl 25 mg) 75 mg PO TID [facility] Last Admin: 10/02/17 13:39 Dose: 75 mg Insulin Aspart (Novolog Vial Sliding Scale -) 1 vial SQ TIDAC [facility]; Protocol Last Admin: 10/02/17 12:20 Dose: 2 units Insulin Detemir (Levemir Vial) 95 units SQ AM [facility] Last Admin: 10/02/17 06:18 Dose: 95 units Lactic Acid (Lac-Hydrin 12) 1 applic TP BID PRN PRN Reason: xerosis Metoprolol Tartrate (Lopressor -) 25 mg PO BID [facility] Last Admin: 10/02/17 09:58 Dose: 25 mg Nystatin (Nystop Powder -) 1 applic TP DAILY [facility] Last Admin: 10/02/17 10:10 Dose: 1 applic Ofloxacin (Ocuflox 0.3% Eye Drops -) 1 drop OU TID [facility] Last Admin: 10/02/17 13:43 Dose: 1 drop Ondansetron HCl (Zofran Injection) 4 mg IVPUSH Q8H PRN PRN Reason: NAUSEA Polyethylene Glycol (Miralax (For Daily Use) -) 17 gm PO BID [facility] Last Admin: 10/02/17 10:09 Dose: 17 grams Ranitidine HCl (Zantac -) 150 mg PO DAILY [facility] Last Admin: 10/02/17 09:56 Dose: 150 mg - Objective Vital Signs: Vital Signs Temperature 98.9 F 10/02/17 13:50 Pulse Rate 61 10/02/17 13:50 Respiratory Rate 20 10/02/17 13:50 Blood Pressure 133/56 10/02/17 13:50 O2 Sat by Pulse Oximetry (%) 100 10/01/17 09:00 Constitutional: Yes: Calm Eyes: Yes: Conjunctiva Clear HENT: Yes: Atraumatic Cardiovascular: Yes: S1, S2 Respiratory: Yes: CTA Bilaterally Gastrointestinal: Yes: Soft, Abdomen, Obese Musculoskeletal: Yes: Muscle Weakness Edema: No Neurological: Yes: Oriented Psychiatric: Yes: Oriented Labs: CBC, BMP 09/28/17 10:15 09/28/17 10:15 INR, PTT INR 1.35 (0.82-1.09) H D 09/21/17 05:40 Problem List - Problems (1) Acute on chronic kidney failure Code(s): N17.9 - ACUTE KIDNEY FAILURE, UNSPECIFIED; N18.9 - CHRONIC KIDNEY DISEASE, UNSPECIFIED (2) CHF (congestive heart failure) Code(s): I50.9 - HEART FAILURE, UNSPECIFIED (3) Diabetes Code(s): E11.9 - TYPE 2 DIABETES MELLITUS WITHOUT COMPLICATIONS (4) HTN (hypertension) Code(s): I10 - ESSENTIAL (PRIMARY) HYPERTENSION Assessment/Plan Current Medications Generic Name Dose Route Start Last Admin Trade Name Freq PRN Reason Stop Dose Admin Acetaminophen 650 mg 09/26/17 12:49 Tylenol - PO Q4H PRN FEVER Amlodipine Besylate 10 mg 09/27/17 10:00 10/02/17 09:57 Norvasc - PO 10 mg DAILY [facility] Administration Aspirin 81 mg 09/27/17 10:00 10/02/17 09:57 Ecotrin - PO 81 mg DAILY [facility] Administration Atorvastatin Calcium 10 mg 09/26/17 22:00 10/01/17 22:18 Lipitor - PO 10 mg HS [facility] Administration Bisacodyl 10 mg 09/26/17 12:49 Dulcolax Suppository - RC DAILY PRN CONSTIPATION Brimonidine Tartrate 1 drop 09/26/17 14:00 10/02/17 13:44 Alphagan P 0.1% - OU 1 drop TID [facility] Administration Chlorthalidone 100 mg 09/27/17 10:00 10/02/17 09:59 Hygroton - PO 100 mg DAILY [facility] Administration Clopidogrel Bisulfate 75 mg 09/27/17 10:00 10/02/17 09:57 Plavix - PO 75 mg DAILY [facility] Administration Collagenase 1 applic 09/27/17 10:00 10/02/17 10:59 Santyl - TP 1 applic DAILY [facility] Administration Docusate Sodium 200 mg 09/27/17 10:00 10/02/17 09:56 Colace - PO 200 mg DAILY [facility] Administration Ethacrynic Acid 75 mg 09/26/17 22:00 10/02/17 10:00 Edecrin - PO 75 mg BID [facility] Administration Ferrous Sulfate 325 mg 10/02/17 22:00 Feosol - PO BID [facility] Folic Acid 1 mg 09/27/17 10:00 10/02/17 09:58 Folic Acid - PO 1 mg DAILY [facility] Administration Gabapentin 600 mg 09/26/17 14:00 10/02/17 13:37 Neurontin - PO 600 mg TID [facility] Administration Heparin Sodium (Porcine) 5,000 unit 09/28/17 14:00 10/02/17 13:37 Heparin - SQ 5,000 unit TID [facility] Administration Hydralazine HCl 50 mg/ 75 mg 10/01/17 06:00 10/02/17 13:39 Hydralazine HCl 25 mg PO 75 mg TID [facility] Administration Insulin Aspart 1 vial 09/26/17 16:30 10/02/17 12:20 Novolog Vial Sliding Scale - SQ 2 units TIDAC [facility] Administration Protocol Insulin Detemir 95 units 09/27/17 07:00 10/02/17 06:18 Levemir Vial SQ 95 units AM [facility] Administration Lactic Acid 1 applic 09/26/17 12:49 Lac-Hydrin 12 TP BID PRN xerosis Metoprolol Tartrate 25 mg 09/26/17 22:00 10/02/17 09:58 Lopressor - PO 25 mg BID [facility] Administration Nystatin 1 applic 09/27/17 10:00 10/02/17 10:10 Nystop Powder - TP 1 applic DAILY [facility] Administration Ofloxacin 1 drop 09/26/17 14:00 10/02/17 13:43 Ocuflox 0.3% Eye Drops - OU 1 drop TID [facility] Administration Ondansetron HCl 4 mg 09/26/17 12:49 Zofran Injection IVPUSH Q8H PRN NAUSEA Polyethylene Glycol 17 gm 09/26/17 22:00 10/02/17 10:09 Miralax (For Daily Use) - PO 17 grams BID [facility] Administration Ranitidine HCl 150 mg 09/27/17 10:00 10/02/17 09:56 Zantac - PO 150 mg DAILY [facility] Administration Impression 1. CKD 2. DM 3. cervical spine disease 4. HTN 5. CHF 6. obesity 7. anemia 8. DOMINIK 9. HLD 10. volume overload 11. s/p c2 to t2 decompression and fusion Plan - HD in am - check cbc and bmp - check phos level - d/c planning, pt does not have an HD unit yet - epogen for anemia - venofer - will follow
[2017-10-02] MEDS: ATORVASTATIN CA 10 MG TABLET (FP) PO SCH (21:50)
[2017-10-03] MEDS ORDERED: hydrALAZINE HCL 25 MG TABLET (FP) ONE ×3 (06:12→22:05)
[2017-10-03] MEDS ORDERED: hydrALAZINE HCL 50 MG TABLET (FP) ONE ×3 (06:12→22:05)
[2017-10-03] MEDS: GABAPENTIN 300 MG CAPSULE (FP) PO SCH ×3 (06:17→22:08)
[2017-10-03] MEDS: OFLOXACIN 0.3% OPHTHALMIC SOLUTION 5 ML BOTTLE OU SCH ×3 (06:18→22:10)
[2017-10-03] MEDS: HEPARIN NA (PORCINE) 5,000 UNITS/ML 1ML VIAL SQ SCH ×3 (06:18→22:08)
[2017-10-03] MEDS: BRIMONIDINE TARTRATE 0.1% OPHTHALMIC 5 ML BOTTLE OU SCH ×3 (06:18→22:09)
[2017-10-03] MEDS: INSULIN (LEVEMIR) 100 UNITS/ML UNITS SQ SCH (06:19)
[2017-10-03] MEDS: INSULIN SLIDING SCALE (NOVOLOG) 1 VIAL SQ SCH ×3 (06:20→17:33)
[2017-10-03] MEDS ORDERED: INSULIN (NOVOLOG) ASPART 100 UNITS/ML 10ML VIAL ONE ×2 (07:28→19:26)
[2017-10-03] MEDS ORDERED: IRON SUCROSE INJECTION 100 MG in SODIUM CHLORIDE 95 ML IVPB ONE (08:00)
[2017-10-03 08:31] LABS: BASO % 0.7 % (0-2.0); EOS % 6.6 % (0-4.5); HEMATOCRIT 23.5 % (35.4-49); HEMOGLOBIN 7.6 GM/dL (11.7-16.9); LYMPH % 12.6 % (8-40); MCH 27.1 pg (25.7-33.7); MCHC 32.2 g/dl (32.0-35.9); MEAN CELL VOLUME 84.2 fl (80-96); MEAN PLT VOLUME 8.2 fl (7.5-11.1); MONO % 14.3 % (3.8-10.2); NEUT % 65.8 % (42.8-82.8); PLATELET COUNT 378 K/MM3 (134-434); RBC 2.79 M/mm3 (4.00-5.60); RDW 16.4 % (11.9-15.9); WHITE BLOOD COUNT 9.3 K/mm3 (4.0-10.0)
[2017-10-03 08:56] LABS: ALBUMIN 2.4 g/dl (3.4-5.0); ANION GAP 10 (8-16); BLOOD UREA NITROGEN 48 mg/dL (7-18); CALCIUM 8.7 mg/dL (8.5-10.1); CHLORIDE 96 mmol/L (98-107); CO2 31 mmol/L (21-32); GLUCOSE,RANDOM 132 mg/dL (74-106); MAGNESIUM 2.5 mg/dL (1.8-2.4); POTASSIUM 4.4 mmol/L (3.5-5.1); SODIUM 137 mmol/L (136-145)
[2017-10-03] MEDS ORDERED: EPOETIN ALFA 3,000 UNIT/1 ML ML IVPUSH ONE (09:00)
[2017-10-03 09:01] LABS: ALK PHOS 102 U/L (45-117); BILIRUBIN,TOTAL 0.2 mg/dL (0.2-1.0); CREATININE 3.7 mg/dL (0.7-1.3); SGOT/AST 34 U/L (15-37); SGPT/ALT 26 U/L (12-78); TOT PROT 6.4 g/dl (6.4-8.2)
[2017-10-03] MEDS ORDERED: PT OWN MED DRAWER 7, Y5N ONE ×5 (11:07→14:55)
[2017-10-03] MEDS: DOCUSATE SODIUM 100 MG CAPSULE (FP) PO SCH (11:27)
--- NOTE | 2017-10-03 11:27 | DS ---
Physical Exam: SUBJECTIVE: Patient seen and examined OBJECTIVE: Patient to be discharged today to [facility] for physical therapy. His dialysis center is [facility], [address] [place] [address] and he will be on a MWF schedule Vital Signs Period Temp Pulse Resp BP Sys/Kauffman Pulse Ox Last 24 Hr 97.7 F-98.9 F 54-75 20-20 104-151/50-79 98-100 PHYSICAL EXAM GENERAL: The patient is awake, alert, and fully oriented, in no acute distress. HEAD: Normal with no signs of trauma, on c llar EYES: PERRL, extraocular movements intact, sclera anicteric, conjunctiva clear. No ptosis. ENT: Ears normal, nares patent, oropharynx clear without exudates, moist mucous membranes. NECK: on c collar LUNGS: Breath sounds equal, diminished anteriorly HEART: Regular rate and rhythm ABDOMEN: Soft, nontender, nondistended, normoactive bowel sounds, no guarding, no rebound, no hepatosplenomegaly, no masses. EXTREMITIES: 2+ pulses, warm, well-perfused, no edema. PSYCH: Normal mood, normal affect. SKIN: Warm, dry, normal turgor, no rashes or lesions noted LABS Laboratory Results - last 24 hr 10/02/17 10/02/17 10/02/17 12:01 17:26 21:49 WBC RBC Hgb Hct MCV MCH MCHC RDW Plt Count MPV Absolute Neuts (auto) Neutrophils % Lymphocytes % Monocytes % Eosinophils % Basophils % Nucleated RBC % Sodium Potassium Chloride Carbon Dioxide Anion Gap BUN Creatinine Creat Clearance w eGFR POC Glucometer 190 212 135 Random Glucose Calcium Phosphorus Magnesium Total Bilirubin AST ALT Alkaline Phosphatase Total Protein Albumin 10/03/17 10/03/17 10/03/17 06:17 07:20 07:20 WBC 9.3 RBC 2.79 L Hgb 7.6 L Hct 23.5 L MCV 84.2 MCH 27.1 MCHC 32.2 RDW 16.4 H Plt Count 378 D MPV 8.2 Absolute Neuts (auto) 6.1 Neutrophils % 65.8 Lymphocytes % 12.6 D Monocytes % 14.3 H Eosinophils % 6.6 H D Basophils % 0.7 Nucleated RBC % 0 Sodium 137 Potassium 4.4 Chloride 96 L Carbon Dioxide 31 Anion Gap 10 BUN 48 H Creatinine 3.7 H Creat Clearance w eGFR 16.37 POC Glucometer 148 Random Glucose 132 H Calcium 8.7 Phosphorus Magnesium 2.5 H Total Bilirubin 0.2 D AST 34 D ALT 26 D Alkaline Phosphatase 102 Total Protein 6.4 Albumin 2.4 L 10/03/17 10/03/17 07:20 07:44 WBC RBC Hgb Hct MCV MCH MCHC RDW Plt Count MPV Absolute Neuts (auto) Neutrophils % Lymphocytes % Monocytes % Eosinophils % Basophils % Nucleated RBC % Sodium Cancelled Potassium Cancelled Chloride Cancelled Carbon Dioxide Cancelled Anion Gap Cancelled BUN Cancelled Creatinine Cancelled Creat Clearance w eGFR Cancelled POC Glucometer 159 Random Glucose Cancelled Calcium Cancelled Phosphorus 4.9 Magnesium Total Bilirubin AST ALT Alkaline Phosphatase Total Protein Albumin HOSPITAL COURSE: Date of Admission:09/11/17 Date of Discharge: 10/03/17 ASSESSMENT/PLAN: Patient is a 67 year old male with a significant past medical history of hypertension, dm, hyperlipidemia, obesity, sleep apnea, CKD, s/p RCA stent , s/p TAVR on 07/04/13, wheelchair bound, cardiac cath 06/17/13. He is s/p C2- T12 laminectomy and C7-T1 osteotomies, deformity correction and C2-T2 posterior fusion on 09/11. 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 Right permacath placed 09/26. Vein mapping done, AVF outpatient with Dr. Ibrahim within 1 week after discharge. Started Ethacrynic Acid as patient is allergic to Lasix His dialysis center is [facility], [address] [place] [address] and he will be on a MWF schedule Dialysis today at [facility] prior to discharge. Heme Anemia of chronic disease On Ferrous Sulfate, increased to BID On Epogen Surgery: S/p C2-T12 laminectomy and C7-T1 osteotomies, deformity correction and C2-T2 posterior fusion on 09/11 On C collar, surgery following Vascular: Left great toe wound Santyl daily, wound care WC with staph aureus Card: CAD, chronic on dual therapy Hypertension, controlled On Norvasc, Hydralazine TID Endocrine: Diabetes BGMs, SS, Levemir 95 units in a.m. Pulm: Sleep apnea, chronic. On bipap Prophylaxis: SCDs discharge to rehab today. Minutes to complete discharge: 60 Discharge Summary Reason For Visit: CERVICAL STENOSIS & INSTABILITY Current Active Problems Acute on chronic kidney failure (Acute) Dyspnea (Acute) Condition: Stable - Instructions Diet, Activity, Other Instructions: Patient to be discharged today to [facility] for physical therapy. His dialysis center is [facility], [address] [place] [address] and he will be on a MWF schedule Discharge Instructions Post Operative Instructions Physical activity Resume your normal everyday activity as tolerated no heavy lifting or exercise until seen by your surgeon. You may walk unlimited amounts of and climb stairs. You may resume driving the car when you feel safe and comfortable behind the wheel and are no longer wearing your c-collar or taking narcotic pain medication. Wear your c-collar for 23 hours/day, you may remove it to shower. Wound care Keep your dressing clean and dry. You may shower but do not submerge the incision. Wrap plastic around the neck when showering to keep dry. If the dressing becomes wet, remove it and apply a clean, dry dressing. Do not apply ointments or lotions to incisions. Your letitia will be removed by Dr Tinoco in the office approximately 7-10 days post op. Diet There are no dietary restrictions. Eat healthy, high-fiber foods. Drink 6 to 8 glasses of liquid each day. This will assist in keeping your bowels are regular. Pain management You may take Tylenol or acetaminophen. Any pain prescription medication ordered should be taken as prescribed for moderate to severe pain. Call Dr. Tinoco for any of the following: Severe pain not relieved by medication Fever of 101 or higher Excessive bleeding or drainage on dressing Inability to urinate New or worsening pain If you experience chest pain or shortness of breath seek emergency treatment immediately Call the office to confirm your post op appointment for 7 - 10 days after surgery Referrals: Johan Tinoco MD, [facility] [Staff Physician] - 1 Week Placido Andrade MD [Staff Physician] - Giovanny Ibrahim MD [Staff Physician] - 1 Week Disposition: INTERMEDIATE FACILITY - Home Medications Comprehensive Discharge Medication List: Ambulatory Orders Amlodipine Besylate 10 mg PO DAILY 07/08/17 Cholecalciferol (Vitamin D3) [Vitamin D3] 2,000 unit PO DAILY 07/08/17 Docusate Sodium 200 mg PO DAILY 07/08/17 Gabapentin 600 mg PO TID 07/08/17 Hydralazine HCl 75 mg PO TID 07/08/17 Hydrochlorothiazide 25 mg PO DAILY 07/08/17 Metoprolol Tartrate 25 mg PO BID 07/08/17 Ranitidine [Zantac -] 150 mg PO DAILY 07/08/17 Sennosides [Senna] 8.6 mg PO DAILY 07/08/17 Simvastatin 20 mg PO DAILY 07/08/17 Brimonidine Tartrate [Alphagan P 0.1% -] 1 drop OU TID 07/10/17 Brinzolamide [Azopt] 1 drop OU TID 07/10/17 Ofloxacin 0.3% Ophth Soln [Ocuflox -] 1 drop OU TID 07/10/17 Insulin Sliding Scale [Novolog Vial Sliding Scale -] 0 units SQ ACHS 07/16/17 Aspirin [Ecotrin] 81 mg PO DAILY 09/06/17 Clopidogrel Bisulfate [Plavix] 75 mg PO DAILY 09/06/17 Insulin Glargine,Hum.rec.anlog [Toujeo Solostar] 95 unit SQ DAILY 09/06/17 This patient is new to me today: No Emergency Visit: Yes ED Registration Date: 09/11/17 Care time: The patient presented to the Emergency Department on the above date and was hospitalized for further evaluation of their emergent condition. Critical Care patient: No - Discharge Referral Referred to [facility] No
[2017-10-03] MEDS: CHLORTHALIDONE 25 MG TABLET PO SCH (11:28)
[2017-10-03] MEDS: CLOPIDOGREL BISULFATE 75 MG TABLET (FP) PO SCH (11:29)
[2017-10-03] MEDS: amLODIPine BESYLATE 10 MG TABLET (FP) PO SCH (11:29)
[2017-10-03] MEDS: METOPROLOL TARTRATE 25 MG TABLET (FP) PO SCH ×2 (11:29→22:07)
[2017-10-03] MEDS: FOLIC ACID 1 MG TABLET (FP) PO SCH (11:29)
[2017-10-03] MEDS: RANITIDINE HCL 150 MG TABLET (FP) PO SCH (11:29)
[2017-10-03] MEDS: ASPIRIN COATED 81 MG TABLET.EC PO SCH (11:29)
[2017-10-03] MEDS: ETHACRYNIC ACID 25 MG TABLET PO SCH ×2 (11:30→22:09)
[2017-10-03] MEDS: FERROUS SO4 325 MG TABLET (FP) PO SCH ×2 (11:30→22:08)
[2017-10-03] MEDS: POLYETHYLENE GLYCOL 3350 119 GM BTL PO SCH ×3 (11:31→22:08)
--- NOTE | 2017-10-03 12:40 | PN ---
Progress Note, Physician History of Present Illness: stable no new issues - Current Medication List Current Medications: Active Medications Acetaminophen (Tylenol -) 650 mg PO Q4H PRN PRN Reason: FEVER Amlodipine Besylate (Norvasc -) 10 mg PO DAILY [facility] Last Admin: 10/03/17 11:29 Dose: 10 mg Aspirin (Ecotrin -) 81 mg PO DAILY [facility] Last Admin: 10/03/17 11:29 Dose: 81 mg Atorvastatin Calcium (Lipitor -) 10 mg PO HS [facility] Last Admin: 10/02/17 21:50 Dose: 10 mg Bisacodyl (Dulcolax Suppository -) 10 mg RC DAILY PRN PRN Reason: CONSTIPATION Brimonidine Tartrate (Alphagan P 0.1% -) 1 drop OU TID [facility] Last Admin: 10/03/17 06:18 Dose: 1 drop Chlorthalidone (Hygroton -) 100 mg PO DAILY [facility] Last Admin: 10/03/17 11:28 Dose: 100 mg Clopidogrel Bisulfate (Plavix -) 75 mg PO DAILY [facility] Last Admin: 10/03/17 11:29 Dose: 75 mg Collagenase (Santyl -) 1 applic TP DAILY [facility] Last Admin: 10/02/17 10:59 Dose: 1 applic Docusate Sodium (Colace -) 200 mg PO DAILY [facility] Last Admin: 10/03/17 11:27 Dose: 200 mg Ethacrynic Acid (Edecrin -) 75 mg PO BID [facility] Last Admin: 10/03/17 11:30 Dose: 75 mg Ferrous Sulfate (Feosol -) 325 mg PO BID [facility] Last Admin: 10/03/17 11:30 Dose: 325 mg Folic Acid (Folic Acid -) 1 mg PO DAILY [facility] Last Admin: 10/03/17 11:29 Dose: 1 mg Gabapentin (Neurontin -) 600 mg PO TID [facility] Last Admin: 10/03/17 06:17 Dose: 600 mg Heparin Sodium (Porcine) (Heparin -) 5,000 unit SQ TID [facility] Last Admin: 10/03/17 06:18 Dose: 5,000 unit Hydralazine HCl 50 mg/ (Hydralazine HCl 25 mg) 75 mg PO TID [facility] Last Admin: 10/03/17 06:18 Dose: 75 mg Sodium Chloride (Normal Saline -) 250 mls @ 3,000 mls/hr IV PRN PRN PRN Reason: Hypotension during Dialysis Stop: 10/03/17 14:55 Insulin Aspart (Novolog Vial Sliding Scale -) 1 vial SQ TIDAC [facility]; Protocol Last Admin: 10/03/17 11:37 Dose: 2 units Insulin Detemir (Levemir Vial) 95 units SQ AM [facility] Last Admin: 10/03/17 06:19 Dose: 95 units Lactic Acid (Lac-Hydrin 12) 1 applic TP BID PRN PRN Reason: xerosis Metoprolol Tartrate (Lopressor -) 25 mg PO BID [facility] Last Admin: 10/03/17 11:29 Dose: 25 mg Nystatin (Nystop Powder -) 1 applic TP DAILY [facility] Last Admin: 10/02/17 10:10 Dose: 1 applic Ofloxacin (Ocuflox 0.3% Eye Drops -) 1 drop OU TID [facility] Last Admin: 10/03/17 06:18 Dose: 1 drop Ondansetron HCl (Zofran Injection) 4 mg IVPUSH Q8H PRN PRN Reason: NAUSEA Polyethylene Glycol (Miralax (For Daily Use) -) 17 gm PO BID [facility] Last Admin: 10/03/17 11:36 Dose: Not Given Ranitidine HCl (Zantac -) 150 mg PO DAILY [facility] Last Admin: 10/03/17 11:29 Dose: 150 mg - Objective Vital Signs: Vital Signs Temperature 98.5 F 10/03/17 07:19 Pulse Rate 59 L 10/03/17 10:40 Respiratory Rate 20 10/03/17 10:40 Blood Pressure 128/77 10/03/17 10:40 O2 Sat by Pulse Oximetry (%) 98 10/03/17 00:08 Constitutional: Yes: No Distress, Calm HENT: Yes: Other (neck collar) Cardiovascular: Yes: Regular Rate and Rhythm Respiratory: Yes: Regular, CTA Bilaterally Gastrointestinal: Yes: Normal Bowel Sounds, Soft Musculoskeletal: Yes: WNL Extremities: Yes: Other Neurological: Yes: Alert, Oriented Psychiatric: Yes: Alert, Oriented Labs: CBC, BMP 10/03/17 07:20 10/03/17 07:20 INR, PTT INR 1.35 (0.82-1.09) H D 09/21/17 05:40 Assessment/Plan 67 yo male s/p exploration of spinal fusion, C2-T2 laminectomies and C7-T1 osteotomies, deformity correction and C2-T2 posterior fusion. r/o uti numbness leukocytosis Cervical Spinal Stenosis s/p C2-T2 Laminectomies/Posterior Fusions CAD Aortic Stenosis s/p AVR HTN DM CKD DOMINIK Toe Ulcer fever plan stable off of abx rest continue current mgmt patient stable dialysis
--- NOTE | 2017-10-03 13:01 | PN ---
Progress Note, Physician History of Present Illness: Pt seen and examined at bedside. He is awake and alert. He tolerated HD today. - Current Medication List Current Medications: Active Medications Acetaminophen (Tylenol -) 650 mg PO Q4H PRN PRN Reason: FEVER Amlodipine Besylate (Norvasc -) 10 mg PO DAILY [facility] Last Admin: 10/03/17 11:29 Dose: 10 mg Aspirin (Ecotrin -) 81 mg PO DAILY [facility] Last Admin: 10/03/17 11:29 Dose: 81 mg Atorvastatin Calcium (Lipitor -) 10 mg PO HS [facility] Last Admin: 10/02/17 21:50 Dose: 10 mg Bisacodyl (Dulcolax Suppository -) 10 mg RC DAILY PRN PRN Reason: CONSTIPATION Brimonidine Tartrate (Alphagan P 0.1% -) 1 drop OU TID [facility] Last Admin: 10/03/17 06:18 Dose: 1 drop Chlorthalidone (Hygroton -) 100 mg PO DAILY [facility] Last Admin: 10/03/17 11:28 Dose: 100 mg Clopidogrel Bisulfate (Plavix -) 75 mg PO DAILY [facility] Last Admin: 10/03/17 11:29 Dose: 75 mg Collagenase (Santyl -) 1 applic TP DAILY [facility] Last Admin: 10/02/17 10:59 Dose: 1 applic Docusate Sodium (Colace -) 200 mg PO DAILY [facility] Last Admin: 10/03/17 11:27 Dose: 200 mg Ethacrynic Acid (Edecrin -) 75 mg PO BID [facility] Last Admin: 10/03/17 11:30 Dose: 75 mg Ferrous Sulfate (Feosol -) 325 mg PO BID [facility] Last Admin: 10/03/17 11:30 Dose: 325 mg Folic Acid (Folic Acid -) 1 mg PO DAILY [facility] Last Admin: 10/03/17 11:29 Dose: 1 mg Gabapentin (Neurontin -) 600 mg PO TID [facility] Last Admin: 10/03/17 06:17 Dose: 600 mg Heparin Sodium (Porcine) (Heparin -) 5,000 unit SQ TID [facility] Last Admin: 10/03/17 06:18 Dose: 5,000 unit Hydralazine HCl 50 mg/ (Hydralazine HCl 25 mg) 75 mg PO TID [facility] Last Admin: 10/03/17 06:18 Dose: 75 mg Sodium Chloride (Normal Saline -) 250 mls @ 3,000 mls/hr IV PRN PRN PRN Reason: Hypotension during Dialysis Stop: 10/03/17 14:55 Insulin Aspart (Novolog Vial Sliding Scale -) 1 vial SQ TIDAC [facility]; Protocol Last Admin: 10/03/17 11:37 Dose: 2 units Insulin Detemir (Levemir Vial) 95 units SQ AM [facility] Last Admin: 10/03/17 06:19 Dose: 95 units Lactic Acid (Lac-Hydrin 12) 1 applic TP BID PRN PRN Reason: xerosis Metoprolol Tartrate (Lopressor -) 25 mg PO BID [facility] Last Admin: 10/03/17 11:29 Dose: 25 mg Nystatin (Nystop Powder -) 1 applic TP DAILY [facility] Last Admin: 10/02/17 10:10 Dose: 1 applic Ofloxacin (Ocuflox 0.3% Eye Drops -) 1 drop OU TID [facility] Last Admin: 10/03/17 06:18 Dose: 1 drop Ondansetron HCl (Zofran Injection) 4 mg IVPUSH Q8H PRN PRN Reason: NAUSEA Polyethylene Glycol (Miralax (For Daily Use) -) 17 gm PO BID [facility] Last Admin: 10/03/17 11:36 Dose: Not Given Ranitidine HCl (Zantac -) 150 mg PO DAILY [facility] Last Admin: 10/03/17 11:29 Dose: 150 mg - Objective Vital Signs: Vital Signs Temperature 98.5 F 10/03/17 07:19 Pulse Rate 59 L 10/03/17 10:40 Respiratory Rate 20 10/03/17 10:40 Blood Pressure 128/77 10/03/17 10:40 O2 Sat by Pulse Oximetry (%) 98 10/03/17 00:08 Constitutional: Yes: Calm Eyes: Yes: Conjunctiva Clear HENT: Yes: Atraumatic Cardiovascular: Yes: S1, S2 Respiratory: Yes: CTA Bilaterally Gastrointestinal: Yes: Soft, Abdomen, Obese Genitourinary: Yes: Incontinence Musculoskeletal: Yes: Muscle Weakness Edema: No Neurological: Yes: Oriented Psychiatric: Yes: Oriented Labs: CBC, BMP 10/03/17 07:20 10/03/17 07:20 INR, PTT INR 1.35 (0.82-1.09) H D 09/21/17 05:40 Problem List - Problems (1) Acute on chronic kidney failure Code(s): N17.9 - ACUTE KIDNEY FAILURE, UNSPECIFIED; N18.9 - CHRONIC KIDNEY DISEASE, UNSPECIFIED (2) CHF (congestive heart failure) Code(s): I50.9 - HEART FAILURE, UNSPECIFIED (3) Diabetes Code(s): E11.9 - TYPE 2 DIABETES MELLITUS WITHOUT COMPLICATIONS (4) HTN (hypertension) Code(s): I10 - ESSENTIAL (PRIMARY) HYPERTENSION Assessment/Plan Current Medications Generic Name Dose Route Start Last Admin Trade Name Freq PRN Reason Stop Dose Admin Acetaminophen 650 mg 09/26/17 12:49 Tylenol - PO Q4H PRN FEVER Amlodipine Besylate 10 mg 09/27/17 10:00 10/03/17 11:29 Norvasc - PO 10 mg DAILY [facility] Administration Aspirin 81 mg 09/27/17 10:00 10/03/17 11:29 Ecotrin - PO 81 mg DAILY [facility] Administration Atorvastatin Calcium 10 mg 09/26/17 22:00 10/02/17 21:50 Lipitor - PO 10 mg HS [facility] Administration Bisacodyl 10 mg 09/26/17 12:49 Dulcolax Suppository - RC DAILY PRN CONSTIPATION Brimonidine Tartrate 1 drop 09/26/17 14:00 10/03/17 06:18 Alphagan P 0.1% - OU 1 drop TID [facility] Administration Chlorthalidone 100 mg 09/27/17 10:00 10/03/17 11:28 Hygroton - PO 100 mg DAILY [facility] Administration Clopidogrel Bisulfate 75 mg 09/27/17 10:00 10/03/17 11:29 Plavix - PO 75 mg DAILY [facility] Administration Collagenase 1 applic 09/27/17 10:00 10/02/17 10:59 Santyl - TP 1 applic DAILY [facility] Administration Docusate Sodium 200 mg 09/27/17 10:00 10/03/17 11:27 Colace - PO 200 mg DAILY [facility] Administration Ethacrynic Acid 75 mg 09/26/17 22:00 10/03/17 11:30 Edecrin - PO 75 mg BID [facility] Administration Ferrous Sulfate 325 mg 10/02/17 22:00 10/03/17 11:30 Feosol - PO 325 mg BID [facility] Administration Folic Acid 1 mg 09/27/17 10:00 10/03/17 11:29 Folic Acid - PO 1 mg DAILY [facility] Administration Gabapentin 600 mg 09/26/17 14:00 10/03/17 06:17 Neurontin - PO 600 mg TID [facility] Administration Heparin Sodium (Porcine) 5,000 unit 09/28/17 14:00 10/03/17 06:18 Heparin - SQ 5,000 unit TID [facility] Administration Hydralazine HCl 50 mg/ 75 mg 10/01/17 06:00 10/03/17 06:18 Hydralazine HCl 25 mg PO 75 mg TID [facility] Administration Sodium Chloride 250 mls @ 3,000 mls/hr 10/02/17 14:55 Normal Saline - IV 10/03/17 14:55 PRN PRN Hypotension during Dialysis Insulin Aspart 1 vial 09/26/17 16:30 10/03/17 11:37 Novolog Vial Sliding Scale - SQ 2 units TIDAC [facility] Administration Protocol Insulin Detemir 95 units 09/27/17 07:00 10/03/17 06:19 Levemir Vial SQ 95 units AM [facility] Administration Lactic Acid 1 applic 09/26/17 12:49 Lac-Hydrin 12 TP BID PRN xerosis Metoprolol Tartrate 25 mg 09/26/17 22:00 10/03/17 11:29 Lopressor - PO 25 mg BID [facility] Administration Nystatin 1 applic 09/27/17 10:00 10/02/17 10:10 Nystop Powder - TP 1 applic DAILY [facility] Administration Ofloxacin 1 drop 09/26/17 14:00 10/03/17 06:18 Ocuflox 0.3% Eye Drops - OU 1 drop TID [facility] Administration Ondansetron HCl 4 mg 09/26/17 12:49 Zofran Injection IVPUSH Q8H PRN NAUSEA Polyethylene Glycol 17 gm 09/26/17 22:00 10/03/17 11:36 Miralax (For Daily Use) - PO Not Given BID [facility] Ranitidine HCl 150 mg 09/27/17 10:00 10/03/17 11:29 Zantac - PO 150 mg DAILY [facility] Administration Impression 1. CKD 2. DM 3. cervical spine disease 4. HTN 5. CHF 6. obesity 7. anemia 8. DOMINIK 9. HLD 10. volume overload 11. s/p c2 to t2 decompression and fusion 12. ESRD Plan - HD today, pt tolerated - pt has HD set up in the [place], recommend that he follow with his practice assistant as well - will need vascular follow up for fistula - phos stable - epogen for anemia - will follow
[2017-10-03] MEDS: NYSTATIN POWDER 100,000 UNITS/GM - 15 GM TOPICAL POWDER TP SCH (14:52)
[2017-10-03] MEDS: COLLAGENASE CLOSTRIDIUM HIST. 30 GRAMS TUBE TP SCH (14:53)
[2017-10-03] MEDS: ATORVASTATIN CA 10 MG TABLET (FP) PO SCH (22:07)
[2017-10-03] MEDS: SUCRALFATE 1 GM/10 ML UNIT DOSE CUPS PO SCH (22:09)
[2017-10-04] MEDS ORDERED: hydrALAZINE HCL 50 MG TABLET (FP) ONE ×2 (06:03→14:14)
[2017-10-04] MEDS ORDERED: hydrALAZINE HCL 25 MG TABLET (FP) ONE ×2 (06:04→14:14)
[2017-10-04] MEDS: BRIMONIDINE TARTRATE 0.1% OPHTHALMIC 5 ML BOTTLE OU SCH ×2 (06:45→14:18)
[2017-10-04] MEDS: GABAPENTIN 300 MG CAPSULE (FP) PO SCH ×2 (06:46→14:17)
[2017-10-04] MEDS: OFLOXACIN 0.3% OPHTHALMIC SOLUTION 5 ML BOTTLE OU SCH ×2 (06:46→14:18)
[2017-10-04] MEDS: HEPARIN NA (PORCINE) 5,000 UNITS/ML 1ML VIAL SQ SCH ×2 (06:46→14:16)
[2017-10-04] MEDS: INSULIN (LEVEMIR) 100 UNITS/ML UNITS SQ SCH (06:47)
[2017-10-04] MEDS: INSULIN SLIDING SCALE (NOVOLOG) 1 VIAL SQ SCH ×2 (06:47→11:58)
[2017-10-04] MEDS ORDERED: INSULIN (NOVOLOG) ASPART 100 UNITS/ML 10ML VIAL ONE (07:01)
--- NOTE | 2017-10-04 10:17 | PN ---
Progress Note (short form) - Note Progress Note: PULMONARY Denies shortness of breath or chest pain. Awaiting placement. Vital Signs Period Temp Pulse Resp BP Sys/Kauffman Pulse Ox Last 24 Hr 98.3 F-98.8 F 59-83 17-20 117-157/58-77 95-99 Gen: NAD at rest Heart: RRR Lung: decreased breath sounds at the bases Abd:soft, nontender Ext: + trace edema CBC, BMP 10/03/17 07:20 Active Medications Acetaminophen (Tylenol -) 650 mg PO Q4H PRN PRN Reason: FEVER Amlodipine Besylate (Norvasc -) 10 mg PO DAILY [facility] Last Admin: 10/03/17 11:29 Dose: 10 mg Aspirin (Ecotrin -) 81 mg PO DAILY [facility] Last Admin: 10/03/17 11:29 Dose: 81 mg Atorvastatin Calcium (Lipitor -) 10 mg PO HS [facility] Last Admin: 10/03/17 22:07 Dose: 10 mg Bisacodyl (Dulcolax Suppository -) 10 mg RC DAILY PRN PRN Reason: CONSTIPATION Brimonidine Tartrate (Alphagan P 0.1% -) 1 drop OU TID [facility] Last Admin: 10/04/17 06:45 Dose: 1 drop Chlorthalidone (Hygroton -) 100 mg PO DAILY [facility] Last Admin: 10/03/17 11:28 Dose: 100 mg Clopidogrel Bisulfate (Plavix -) 75 mg PO DAILY [facility] Last Admin: 10/03/17 11:29 Dose: 75 mg Collagenase (Santyl -) 1 applic TP DAILY [facility] Last Admin: 10/03/17 14:53 Dose: 1 applic Docusate Sodium (Colace -) 200 mg PO DAILY [facility] Last Admin: 10/03/17 11:27 Dose: 200 mg Ethacrynic Acid (Edecrin -) 75 mg PO BID [facility] Last Admin: 10/03/17 22:09 Dose: 75 mg Ferrous Sulfate (Feosol -) 325 mg PO BID [facility] Last Admin: 10/03/17 22:08 Dose: 325 mg Folic Acid (Folic Acid -) 1 mg PO DAILY [facility] Last Admin: 10/03/17 11:29 Dose: 1 mg Gabapentin (Neurontin -) 600 mg PO TID [facility] Last Admin: 10/04/17 06:46 Dose: 600 mg Heparin Sodium (Porcine) (Heparin -) 5,000 unit SQ TID [facility] Last Admin: 10/04/17 06:46 Dose: 5,000 unit Hydralazine HCl 50 mg/ (Hydralazine HCl 25 mg) 75 mg PO TID [facility] Last Admin: 10/04/17 06:46 Dose: 75 mg Sodium Chloride (Normal Saline -) 250 mls @ 3,000 mls/hr IV PRN PRN PRN Reason: Hypotension during Dialysis Stop: 10/03/17 14:55 Insulin Aspart (Novolog Vial Sliding Scale -) 1 vial SQ TIDAC [facility]; Protocol Last Admin: 10/04/17 06:47 Dose: 2 units Insulin Detemir (Levemir Vial) 95 units SQ AM [facility] Last Admin: 10/04/17 06:47 Dose: 95 units Lactic Acid (Lac-Hydrin 12) 1 applic TP BID PRN PRN Reason: xerosis Metoprolol Tartrate (Lopressor -) 25 mg PO BID [facility] Last Admin: 10/03/17 22:07 Dose: 25 mg Nystatin (Nystop Powder -) 1 applic TP DAILY [facility] Last Admin: 10/03/17 14:52 Dose: 1 applic Ofloxacin (Ocuflox 0.3% Eye Drops -) 1 drop OU TID [facility] Last Admin: 10/04/17 06:46 Dose: 1 drop Ondansetron HCl (Zofran Injection) 4 mg IVPUSH Q8H PRN PRN Reason: NAUSEA Polyethylene Glycol (Miralax (For Daily Use) -) 17 gm PO BID [facility] Last Admin: 10/03/17 22:08 Dose: 17 grams Ranitidine HCl (Zantac -) 150 mg PO DAILY [facility] Last Admin: 10/03/17 11:29 Dose: 150 mg Sucralfate (Carafate Oral Suspension -) 1 gm PO BID [facility] Last Admin: 10/03/17 22:09 Dose: 1 gm A/P Cervical Spinal Stenosis s/p C2-T2 Laminectomies/Posterior Fusions Volume Overload Acute on Chronic Renal Failure requiring HD 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
[2017-10-04 10:31] LABS: ALBUMIN 2.5 g/dl (3.4-5.0); ALK PHOS 100 U/L (45-117); ANION GAP 9 (8-16); BILIRUBIN,TOTAL 0.2 mg/dL (0.2-1.0); BLOOD UREA NITROGEN 46 mg/dL (7-18); CALCIUM 8.4 mg/dL (8.5-10.1); CHLORIDE 97 mmol/L (98-107); CO2 32 mmol/L (21-32); CREATININE 3.8 mg/dL (0.7-1.3); GLUCOSE,RANDOM 150 mg/dL (74-106); SGOT/AST 26 U/L (15-37); SGPT/ALT 25 U/L (12-78); SODIUM 138 mmol/L (136-145); TOT PROT 6.4 g/dl (6.4-8.2)
[2017-10-04] MEDS ORDERED: PT OWN MED DRAWER 7, Y5N ONE ×2 (10:41→14:15)
[2017-10-04] MEDS: DOCUSATE SODIUM 100 MG CAPSULE (FP) PO SCH (10:43)
[2017-10-04] MEDS: FERROUS SO4 325 MG TABLET (FP) PO SCH (10:43)
[2017-10-04] MEDS: amLODIPine BESYLATE 10 MG TABLET (FP) PO SCH (10:43)
[2017-10-04] MEDS: CLOPIDOGREL BISULFATE 75 MG TABLET (FP) PO SCH (10:43)
[2017-10-04] MEDS: FOLIC ACID 1 MG TABLET (FP) PO SCH (10:43)
[2017-10-04] MEDS: RANITIDINE HCL 150 MG TABLET (FP) PO SCH (10:43)
[2017-10-04] MEDS: METOPROLOL TARTRATE 25 MG TABLET (FP) PO SCH (10:44)
[2017-10-04] MEDS: SUCRALFATE 1 GM/10 ML UNIT DOSE CUPS PO SCH (10:44)
[2017-10-04] MEDS: ETHACRYNIC ACID 25 MG TABLET PO SCH (10:45)
[2017-10-04] MEDS: ASPIRIN COATED 81 MG TABLET.EC PO SCH (10:47)
[2017-10-04] MEDS: POLYETHYLENE GLYCOL 3350 119 GM BTL PO SCH (10:48)
[2017-10-04] MEDS: CHLORTHALIDONE 25 MG TABLET PO SCH (10:49)
[2017-10-04] MEDS: NYSTATIN POWDER 100,000 UNITS/GM - 15 GM TOPICAL POWDER TP SCH (10:49)
[2017-10-04] MEDS: COLLAGENASE CLOSTRIDIUM HIST. 30 GRAMS TUBE TP SCH (10:50)
--- NOTE | 2017-10-04 12:01 | PN ---
Progress Note, Physician History of Present Illness: stable no new issues - Current Medication List Current Medications: Active Medications Acetaminophen (Tylenol -) 650 mg PO Q4H PRN PRN Reason: FEVER Amlodipine Besylate (Norvasc -) 10 mg PO DAILY [facility] Last Admin: 10/04/17 10:43 Dose: 10 mg Aspirin (Ecotrin -) 81 mg PO DAILY [facility] Last Admin: 10/04/17 10:47 Dose: 81 mg Atorvastatin Calcium (Lipitor -) 10 mg PO HS [facility] Last Admin: 10/03/17 22:07 Dose: 10 mg Bisacodyl (Dulcolax Suppository -) 10 mg RC DAILY PRN PRN Reason: CONSTIPATION Brimonidine Tartrate (Alphagan P 0.1% -) 1 drop OU TID [facility] Last Admin: 10/04/17 06:45 Dose: 1 drop Chlorthalidone (Hygroton -) 100 mg PO DAILY [facility] Last Admin: 10/04/17 10:49 Dose: 100 mg Clopidogrel Bisulfate (Plavix -) 75 mg PO DAILY [facility] Last Admin: 10/04/17 10:43 Dose: 75 mg Collagenase (Santyl -) 1 applic TP DAILY [facility] Last Admin: 10/04/17 10:50 Dose: 1 applic Docusate Sodium (Colace -) 200 mg PO DAILY [facility] Last Admin: 10/04/17 10:43 Dose: 200 mg Ethacrynic Acid (Edecrin -) 75 mg PO BID [facility] Last Admin: 10/04/17 10:45 Dose: 75 mg Ferrous Sulfate (Feosol -) 325 mg PO BID [facility] Last Admin: 10/04/17 10:43 Dose: 325 mg Folic Acid (Folic Acid -) 1 mg PO DAILY [facility] Last Admin: 10/04/17 10:43 Dose: 1 mg Gabapentin (Neurontin -) 600 mg PO TID [facility] Last Admin: 10/04/17 06:46 Dose: 600 mg Heparin Sodium (Porcine) (Heparin -) 5,000 unit SQ TID [facility] Last Admin: 10/04/17 06:46 Dose: 5,000 unit Hydralazine HCl 50 mg/ (Hydralazine HCl 25 mg) 75 mg PO TID [facility] Last Admin: 10/04/17 06:46 Dose: 75 mg Sodium Chloride (Normal Saline -) 250 mls @ 3,000 mls/hr IV PRN PRN PRN Reason: Hypotension during Dialysis Stop: 10/03/17 14:55 Insulin Aspart (Novolog Vial Sliding Scale -) 1 vial SQ TIDAC [facility]; Protocol Last Admin: 10/04/17 11:58 Dose: 4 units Insulin Detemir (Levemir Vial) 95 units SQ AM [facility] Last Admin: 10/04/17 06:47 Dose: 95 units Lactic Acid (Lac-Hydrin 12) 1 applic TP BID PRN PRN Reason: xerosis Metoprolol Tartrate (Lopressor -) 25 mg PO BID [facility] Last Admin: 10/04/17 10:44 Dose: 25 mg Nystatin (Nystop Powder -) 1 applic TP DAILY [facility] Last Admin: 10/04/17 10:49 Dose: 1 applic Ofloxacin (Ocuflox 0.3% Eye Drops -) 1 drop OU TID [facility] Last Admin: 10/04/17 06:46 Dose: 1 drop Ondansetron HCl (Zofran Injection) 4 mg IVPUSH Q8H PRN PRN Reason: NAUSEA Polyethylene Glycol (Miralax (For Daily Use) -) 17 gm PO BID [facility] Last Admin: 10/04/17 10:48 Dose: Not Given Ranitidine HCl (Zantac -) 150 mg PO DAILY [facility] Last Admin: 10/04/17 10:43 Dose: 150 mg Sucralfate (Carafate Oral Suspension -) 1 gm PO BID [facility] Last Admin: 10/04/17 10:44 Dose: 1 gm - Objective Vital Signs: Vital Signs Temperature 98.8 F 10/03/17 22:00 Pulse Rate 83 10/03/17 22:00 Respiratory Rate 18 10/03/17 22:00 Blood Pressure 151/58 10/03/17 22:00 O2 Sat by Pulse Oximetry (%) 99 10/04/17 07:39 Constitutional: Yes: No Distress, Calm HENT: Yes: Other (neck collar) Neck: Yes: Other (hard collar) Cardiovascular: Yes: Regular Rate and Rhythm Respiratory: Yes: Regular, CTA Bilaterally Gastrointestinal: Yes: Normal Bowel Sounds, Soft Musculoskeletal: Yes: WNL Extremities: Yes: Other Wound/Incision: Yes: Clean/Dry Neurological: Yes: Alert, Oriented Psychiatric: Yes: Alert, Oriented Labs: CBC, BMP 10/03/17 07:20 10/04/17 09:45 INR, PTT INR 1.35 (0.82-1.09) H D 09/21/17 05:40 Assessment/Plan 67 yo male s/p exploration of spinal fusion, C2-T2 laminectomies and C7-T1 osteotomies, deformity correction and C2-T2 posterior fusion. r/o uti numbness leukocytosis Cervical Spinal Stenosis s/p C2-T2 Laminectomies/Posterior Fusions CAD Aortic Stenosis s/p AVR HTN DM CKD DOMINIK Toe Ulcer fever plan continue current mgmt dialysis rest as per the team physio
[2017-10-04] MEDS ORDERED: SODIUM CHLORIDE 250 ML IV PRN (14:44)
--- NOTE | 2017-10-04 14:44 | PN ---
Progress Note, Physician History of Present Illness: Pt seen and examined at bedside. He denies shortness of breath. - Current Medication List Current Medications: Active Medications Acetaminophen (Tylenol -) 650 mg PO Q4H PRN PRN Reason: FEVER Amlodipine Besylate (Norvasc -) 10 mg PO DAILY [facility] Last Admin: 10/04/17 10:43 Dose: 10 mg Aspirin (Ecotrin -) 81 mg PO DAILY [facility] Last Admin: 10/04/17 10:47 Dose: 81 mg Atorvastatin Calcium (Lipitor -) 10 mg PO HS [facility] Last Admin: 10/03/17 22:07 Dose: 10 mg Bisacodyl (Dulcolax Suppository -) 10 mg RC DAILY PRN PRN Reason: CONSTIPATION Brimonidine Tartrate (Alphagan P 0.1% -) 1 drop OU TID [facility] Last Admin: 10/04/17 14:18 Dose: 1 drop Chlorthalidone (Hygroton -) 100 mg PO DAILY [facility] Last Admin: 10/04/17 10:49 Dose: 100 mg Clopidogrel Bisulfate (Plavix -) 75 mg PO DAILY [facility] Last Admin: 10/04/17 10:43 Dose: 75 mg Collagenase (Santyl -) 1 applic TP DAILY [facility] Last Admin: 10/04/17 10:50 Dose: 1 applic Docusate Sodium (Colace -) 200 mg PO DAILY [facility] Last Admin: 10/04/17 10:43 Dose: 200 mg Ethacrynic Acid (Edecrin -) 75 mg PO BID [facility] Last Admin: 10/04/17 10:45 Dose: 75 mg Ferrous Sulfate (Feosol -) 325 mg PO BID [facility] Last Admin: 10/04/17 10:43 Dose: 325 mg Folic Acid (Folic Acid -) 1 mg PO DAILY [facility] Last Admin: 10/04/17 10:43 Dose: 1 mg Gabapentin (Neurontin -) 600 mg PO TID [facility] Last Admin: 10/04/17 14:17 Dose: 600 mg Heparin Sodium (Porcine) (Heparin -) 5,000 unit SQ TID [facility] Last Admin: 10/04/17 14:16 Dose: 5,000 unit Hydralazine HCl 50 mg/ (Hydralazine HCl 25 mg) 75 mg PO TID [facility] Last Admin: 10/04/17 14:17 Dose: 75 mg Sodium Chloride (Normal Saline -) 250 mls @ 3,000 mls/hr IV PRN PRN PRN Reason: Hypotension during Dialysis Stop: 10/03/17 14:55 Insulin Aspart (Novolog Vial Sliding Scale -) 1 vial SQ TIDAC [facility]; Protocol Last Admin: 10/04/17 11:58 Dose: 4 units Insulin Detemir (Levemir Vial) 95 units SQ AM [facility] Last Admin: 10/04/17 06:47 Dose: 95 units Lactic Acid (Lac-Hydrin 12) 1 applic TP BID PRN PRN Reason: xerosis Metoprolol Tartrate (Lopressor -) 25 mg PO BID [facility] Last Admin: 10/04/17 10:44 Dose: 25 mg Nystatin (Nystop Powder -) 1 applic TP DAILY [facility] Last Admin: 10/04/17 10:49 Dose: 1 applic Ofloxacin (Ocuflox 0.3% Eye Drops -) 1 drop OU TID [facility] Last Admin: 10/04/17 14:18 Dose: 1 drop Ondansetron HCl (Zofran Injection) 4 mg IVPUSH Q8H PRN PRN Reason: NAUSEA Polyethylene Glycol (Miralax (For Daily Use) -) 17 gm PO BID [facility] Last Admin: 10/04/17 10:48 Dose: Not Given Ranitidine HCl (Zantac -) 150 mg PO DAILY [facility] Last Admin: 10/04/17 10:43 Dose: 150 mg Sucralfate (Carafate Oral Suspension -) 1 gm PO BID [facility] Last Admin: 10/04/17 10:44 Dose: 1 gm - Objective Vital Signs: Vital Signs Temperature 97.9 F 10/04/17 10:00 Pulse Rate 60 10/04/17 10:00 Respiratory Rate 18 10/04/17 10:00 Blood Pressure 115/50 10/04/17 10:00 O2 Sat by Pulse Oximetry (%) 100 10/04/17 09:00 Constitutional: Yes: Calm Eyes: Yes: Conjunctiva Clear Neck: Yes: Other (pt has brace) Cardiovascular: Yes: S1, S2 Respiratory: Yes: CTA Bilaterally Gastrointestinal: Yes: Soft, Abdomen, Obese Genitourinary: Yes: WNL Musculoskeletal: Yes: Muscle Weakness Edema: No Neurological: Yes: Oriented Psychiatric: Yes: Oriented Labs: CBC, BMP 10/03/17 07:20 10/04/17 09:45 INR, PTT INR 1.35 (0.82-1.09) H D 09/21/17 05:40 Problem List - Problems (1) Acute on chronic kidney failure Code(s): N17.9 - ACUTE KIDNEY FAILURE, UNSPECIFIED; N18.9 - CHRONIC KIDNEY DISEASE, UNSPECIFIED (2) CHF (congestive heart failure) Code(s): I50.9 - HEART FAILURE, UNSPECIFIED (3) Diabetes Code(s): E11.9 - TYPE 2 DIABETES MELLITUS WITHOUT COMPLICATIONS (4) HTN (hypertension) Code(s): I10 - ESSENTIAL (PRIMARY) HYPERTENSION Assessment/Plan Current Medications Generic Name Dose Route Start Last Admin Trade Name Freq PRN Reason Stop Dose Admin Acetaminophen 650 mg 09/26/17 12:49 Tylenol - PO Q4H PRN FEVER Amlodipine Besylate 10 mg 09/27/17 10:00 10/04/17 10:43 Norvasc - PO 10 mg DAILY [facility] Administration Aspirin 81 mg 09/27/17 10:00 10/04/17 10:47 Ecotrin - PO 81 mg DAILY [facility] Administration Atorvastatin Calcium 10 mg 09/26/17 22:00 10/03/17 22:07 Lipitor - PO 10 mg HS [facility] Administration Bisacodyl 10 mg 09/26/17 12:49 Dulcolax Suppository - RC DAILY PRN CONSTIPATION Brimonidine Tartrate 1 drop 09/26/17 14:00 10/04/17 14:18 Alphagan P 0.1% - OU 1 drop TID [facility] Administration Chlorthalidone 100 mg 09/27/17 10:00 10/04/17 10:49 Hygroton - PO 100 mg DAILY [facility] Administration Clopidogrel Bisulfate 75 mg 09/27/17 10:00 10/04/17 10:43 Plavix - PO 75 mg DAILY [facility] Administration Collagenase 1 applic 09/27/17 10:00 10/04/17 10:50 Santyl - TP 1 applic DAILY [facility] Administration Docusate Sodium 200 mg 09/27/17 10:00 10/04/17 10:43 Colace - PO 200 mg DAILY [facility] Administration Ethacrynic Acid 75 mg 09/26/17 22:00 10/04/17 10:45 Edecrin - PO 75 mg BID [facility] Administration Ferrous Sulfate 325 mg 10/02/17 22:00 10/04/17 10:43 Feosol - PO 325 mg BID [facility] Administration Folic Acid 1 mg 09/27/17 10:00 10/04/17 10:43 Folic Acid - PO 1 mg DAILY [facility] Administration Gabapentin 600 mg 09/26/17 14:00 10/04/17 14:17 Neurontin - PO 600 mg TID [facility] Administration Heparin Sodium (Porcine) 5,000 unit 09/28/17 14:00 10/04/17 14:16 Heparin - SQ 5,000 unit TID [facility] Administration Hydralazine HCl 50 mg/ 75 mg 10/01/17 06:00 10/04/17 14:17 Hydralazine HCl 25 mg PO 75 mg TID [facility] Administration Sodium Chloride 250 mls @ 3,000 mls/hr 10/02/17 14:55 Normal Saline - IV 10/03/17 14:55 PRN PRN Hypotension during Dialysis Insulin Aspart 1 vial 09/26/17 16:30 10/04/17 11:58 Novolog Vial Sliding Scale - SQ 4 units TIDAC [facility] Administration Protocol Insulin Detemir 95 units 09/27/17 07:00 10/04/17 06:47 Levemir Vial SQ 95 units AM [facility] Administration Lactic Acid 1 applic 09/26/17 12:49 Lac-Hydrin 12 TP BID PRN xerosis Metoprolol Tartrate 25 mg 09/26/17 22:00 10/04/17 10:44 Lopressor - PO 25 mg BID ELENA Administration Nystatin 1 applic 09/27/17 10:00 10/04/17 10:49 Nystop Powder - TP 1 applic DAILY ELENA Administration Ofloxacin 1 drop 09/26/17 14:00 10/04/17 14:18 Ocuflox 0.3% Eye Drops - OU 1 drop TID [facility] Administration Ondansetron HCl 4 mg 09/26/17 12:49 Zofran Injection IVPUSH Q8H PRN NAUSEA Polyethylene Glycol 17 gm 09/26/17 22:00 10/04/17 10:48 Miralax (For Daily Use) - PO Not Given BID [facility] Ranitidine HCl 150 mg 09/27/17 10:00 10/04/17 10:43 Zantac - PO 150 mg DAILY ELENA Administration Sucralfate 1 gm 10/03/17 22:00 10/04/17 10:44 Carafate Oral Suspension - PO 1 gm BID ELENA Administration Impression 1. CKD 2. DM 3. cervical spine disease 4. HTN 5. CHF 6. obesity 7. anemia 8. DOMINIK 9. HLD 10. volume overload 11. s/p c2 to t2 decompression and fusion 12. ESRD Plan - next HD in am - possible discharge today - will need vascular follow up for fistula - phos stable, renal diet - epogen for anemia - will follow
[2017-10-04 16:02] VITALS: BP 129/69; PULSE 61; TEMP 98
[2017-10-05] MEDS ORDERED: EPOETIN ALFA 2,000 UNIT/1 ML VIAL IVPUSH ONE (14:44)
== END 2017-10-04 16:27 | DRG 453 ==
LOC: JSAMEDAYSX 11:36 → JICU 20:53 → J4W 09-14 12:14 → J7W 09-24 14:04 → J8W 09-25 17:55
PROVIDERS: ADMIT Internal Medicine; ATTEND Nurse Practitioner Family
PROC: 0RG20AJ Fusion of 2 or more Cervical Vertebral Joints with Interbody Fusion Device, Posterior Approach, Anterior Column, Open Approach (ICD-10-PCS; 2017-09-11)
PROC: 0RG4071 Fusion of Cervicothoracic Vertebral Joint with Autologous Tissue Substitute, Posterior Approach, Posterior Column, Open Approach (ICD-10-PCS; principal; 2017-09-11 10:00)
PROC: 5A09357 Assistance with Respiratory Ventilation, Less than 24 Consecutive Hours, Continuous Positive Airway Pressure (ICD-10-PCS; 2017-09-19)
PROC: 06HM33Z Insertion of Infusion Device into Right Femoral Vein, Percutaneous Approach (ICD-10-PCS; 2017-09-20)
PROC: B51BZZA Fluoroscopy of Right Lower Extremity Veins, Guidance (ICD-10-PCS; 2017-09-20)
PROC: 5A1D70Z Performance of Urinary Filtration, Intermittent, Less than 6 Hours Per Day (ICD-10-PCS; 2017-09-20)
PROC: 05HM33Z Insertion of Infusion Device into Right Internal Jugular Vein, Percutaneous Approach (ICD-10-PCS; 2017-09-26)
PROC: B513ZZA Fluoroscopy of Right Jugular Veins, Guidance (ICD-10-PCS; 2017-10-03)
DX: M48.02 Spinal stenosis, cervical region (principal); N18.6 End stage renal disease; I50.43 Acute on chronic combined systolic (congestive) and diastolic (congestive) heart failure; G82.20 Paraplegia, unspecified; L97.508 Non-pressure chronic ulcer of other part of unspecified foot with other specified severity; N17.9 Acute kidney failure, unspecified; I13.2 Hypertensive heart and chronic kidney disease with heart failure and with stage 5 chronic kidney disease, or end stage renal disease; D62 Acute posthemorrhagic anemia; M53.2X2 Spinal instabilities, cervical region; E11.621 Type 2 diabetes mellitus with foot ulcer; E66.9 Obesity, unspecified; Z68.36 Body mass index [BMI] 36.0-36.9, adult; G47.30 Sleep apnea, unspecified; E87.5 Hyperkalemia; B95.61 Methicillin susceptible Staphylococcus aureus infection as the cause of diseases classified elsewhere; R33.9 Retention of urine, unspecified; E66.09 Other obesity due to excess calories; E11.22 Type 2 diabetes mellitus with diabetic chronic kidney disease; Z99.3 Dependence on wheelchair; I25.10 Atherosclerotic heart disease of native coronary artery without angina pectoris; Z87.891 Personal history of nicotine dependence; I48.91 Unspecified atrial fibrillation; Z79.4 Long term (current) use of insulin; M62.81 Muscle weakness (generalized); K76.0 Fatty (change of) liver, not elsewhere classified; Z79.84 Long term (current) use of oral hypoglycemic drugs; B95.8 Unspecified staphylococcus as the cause of diseases classified elsewhere; L97.529 Non-pressure chronic ulcer of other part of left foot with unspecified severity; Z95.5 Presence of coronary angioplasty implant and graft; K59.00 Constipation, unspecified; D63.8 Anemia in other chronic diseases classified elsewhere
CPT/HCPCS: 36415; 36430; 36600; 71045-TC-FY; 72125-TC; 73130-TC-RT-FY; 73630-TC-LT; 76000-TC-FY; 76775-TC; 80048; 80053; 81003; 81015; 82728; 82803; 82962; 83036; 83540; 83550; 83735; 84100; 85025; 85027; 85610; 86704; 86706; 86708; 86850; 86900; 86901; 86922; 87040; 87070; 87086; 87186; 87205; 87340; 93306-TC; 93931; 93970-TC; 93971; 94660; 94760; 97161-GP; J0885; J1644; J1756; J7030; P9038; P9058